=== PATIENT | female | born 1940 | race African-American/Black ===

== ENCOUNTER 2018-06-10 16:47 | Emergency (ER) | payer OTHER ==
--- OUTSIDE RECORDS SUMMARY | 2018-06-10 16:50 | XMS REPORT | Continuity of Care Document ---
:1940 Author Organization Interface Problems Problem Status Onset Classification Date Comments Source Date Reported Menopause 10/04/2017 018 [facility] Atrophic vaginitis 10/04/2017 018 [facility] Group Vulvar dystrophy 10/04/2017 018 [facility] Group Osteoporosis 10/04/2017 018 [facility] Group R10.31 - RIGHT LOWER Active OPID QUADRANT PAIN K57.3 017 [place] History of polyp of Active Problem 12/04/2017 Data colon<sup>3, 4</sup> 015 migrated Medical from [facility] on 12/16/14. 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 Edema<sup>2</sup> Active Problem 12/04/2017 Data 013 migrated Medical from [facility] on 11/07/14. Neuro, OPID [place] Hypertensive Active Problem 06/18/2017 Data episode<sup>5</sup> 013 migrated Medical from [facility] on 11/07/14. Hyperlipidemia<sup>5, Active Problem 07/24/2016 Data OPID 6</sup> 013 migrated [facility] from [facility] on 11/07/14. Hypertensive Active Problem 07/24/2016 Data OPID episode<sup>7</sup> 013 migrated [facility] from [facility] on 11/07/14. Diverticular disease of Active Problem 12/04/2017 Data colon<sup>1</sup> 013 migrated Medical from [facility] on 11/07/14. Neuro, OPID [place] Internal Active Problem 06/18/2017 Data hemorrhoids<sup>6</sup> 013 migrated Medical from [facility] on 11/07/14. Internal Active Problem 12/04/2017 Data hemorrhoids<sup>5</sup> 013 migrated Medical from [facility] on 11/07/14. Neuro Internal Active Problem 07/24/2016 Data OPID hemorrhoids<sup>8</sup> 013 migrated [facility] from [facility] on 11/07/14. Osteoarthritis<sup>7</mcknight Active Problem 06/18/2017 Data p> 012 migrated Medical from [facility] on 11/07/14. Osteoarthritis<sup>6</mcknight Active Problem 12/04/2017 Data p> 012 migrated Medical from [facility] on 11/07/14. Neuro Osteoarthritis<sup>9</mcknight Active Problem 07/24/2016 Data OPID p> 012 migrated [facility] from [facility] on 11/07/14. Gallstones Active Problem 12/04/2017 [facility] Neuro, OPID [place] Drug therapy Active Problem 12/04/2017 [facility] Neuro, OPID [place] Vulvar dystrophy Active Problem 12/04/2017 [facility] Neuro, OPID [place] Body mass index Active Problem 12/04/2017 29.0-29.9, adult(<span Medical ID="[id number]">[facility] med</span>) [facility] Neuro Hypergammaglobulinemia Active Problem 12/04/2017 [facility] Hepatic lesion Active Problem 12/04/2017 [facility] Neuro,MH OPID [place] Menopause Active Problem 12/04/2017 [facility] Neuro,MH OPID [place] Mixed hyperlipidemia Active Problem 12/04/2017 [facility] Neuro Lung nodules Active Problem 12/04/2017 [facility] Neuro,MH OPID [place] Osteopenia Active Problem 06/18/2017 Medical Group, OPID [place] Osteoporosis Active Problem 12/04/2017 [facility] Neuro,MH OPID [place] Atrophic vaginitis Active Problem 12/04/2017 [facility] Neuro,MH OPID [place] Cervical spondylosis Active Problem 12/04/2017 [facility] Neuro Degenerative cervical Active Problem 12/04/2017 disc Medical [facility] Neck pain Active Problem 12/04/2017 [facility] Neuro Adult body mass index Active Problem 07/24/2016 OPID 28.0-28.9 [place] RLQ abdominal pain Active Problem 07/10/2016 OPID [place] Medications Medication Details Route Status Patient Ordering Order Source Instructions Provider Date baclofen 10 mg See Active oral tablet Instructions 018 Medical , # 90 tab, Group TAKE 1 TABLET BY MOUTH 3 TIMES A DAY NEEDED FOR SPASMS, Pharmacy: [facility]/pharmacy #[id number] baclofen 10 mg See No Longer oral tablet Instructions Active 018 Medical , # 90 tab, Group TAKE 1 TABLET BY MOUTH 3 TIMES A DAY NEEDED FOR SPASMS, Pharmacy: [facility]/pharmacy #[id number] tramadol 50 mg=1 tab, No Longer hydrochloride 50 PO, BID, X Active 018 Medical MG Oral Tablet 10 day, # 10 Group tab, 0 Refill(s) baclofen 10 mg 10 mg=1 tab, No Longer oral tablet PO, TID, PRN Active 018 Medical Spasms, # 90 Group tab, 0 Refill(s), Pharmacy: [facility]/pharmacy #[id number] Triamcinolone See Active Acetonide 1 Instructions 018 Medical MG/ML Topical , apply Group Cream small amount to affected area twice/day until symptoms resolved., # 60 gm, 1 Refill(s), Pharmacy: [facility]/pharmacy #[id number] atorvastatin 20 20 mg=1 tab, No Longer MH mg oral tablet PO, Daily, # Active 018 Medical 90 tab, 0 Group Refill(s), [id number] atorvastatin 20 20 mg=1 tab, Active MH mg oral tablet PO, Daily, # 018 Medical 90 tab, 5 Group Refill(s), [id number] amLODIPine 5 mg See Active MH oral tablet Instructions 018 Medical , TAKE 1 Group TABLET BY MOUTH DAILY, # 90 tab, 1 Refill(s), [id number] levofloxacin 500 500 mg=1 Active MH mg oral tablet tab, PO, 018 Medical Daily, X 10 Group day, # 10 tab, 0 Refill(s), [id number], DC the Zithromax order Codeine See Active MH Phosphate 2 Instructions 018 Medical MG/ML / , PRN cough, Group Guaifenesin 20 5-10 mL PO MG/ML Oral Q6H prn Solution cough, # 240 [Cheratussin] mL, 1 Refill(s) {6 (Azithromycin See Inactive MH 250 MG Oral Instructions 018 Medical Tablet , Take 2 Group [Zithromax]) } tablets by Pack [Z-PAKS] mouth the first day then 1 tablet by mouth days 2-5., X 5 day, # 6 tab, 0 Refill(s), [id number] Allergies, Adverse Reactions, Alerts Substance Category Reaction Severity Reaction Status Date Comments Source type Reported penicillins Assertion Drug Active Data <sup>1</sup allergy migrated Medical > from [facility] on 01/07/15. Originally documented as PCN. Hives dicyclomine Assertion Drug Active Data <sup>2</sup allergy migrated Medical > from [facility] on 10/08/14. Originally documented as DICYCLOMINE HCL. itching and swelling dicyclomine Assertion Drug Active Data OPID <sup>1</sup allergy migrated Sugar > from [facility] on 10/08/14. Originally documented as DICYCLOMINE HCL. itching and swelling penicillins Assertion Drug Active Data OPID <sup>2</sup allergy migrated Sugar > from [facility] on 01/07/15. Originally documented as PCN. Hives Immunizations Immunization Date Site Status Last Comments Source Given Updated influenza virus Left completed [facility] vaccine, 7 Delto[facility] Group,Misch inactivated er Neuro influenza virus Left completed [facility] vaccine, 6 Deltoid Group,Misch inactivated er Neuro,MH OPID [place] influenza virus Left completed [facility] vaccine, 5 Deltoid Group,Misch inactivated er Neuro,MH OPID [place] diphtheria/pertu Left completed [facility] ssis, 4 Deltoid Comment: Group,Misch acel/tetanus adacel er Neuro adult<sup>3</sup [[id number]]. > Migrated from OBS ; Data migrated from [facility] on 07/13/2015. influenza virus Right completed [facility] vaccine, 4 Deltoid Comment: Group,Misch inactivated<sup> fluzone high er Neuro 1</sup> dose [[id number]]. Migrated from OBS ; Data migrated from [facility] on 07/13/2015. diphtheria/pertu Left completed [facility] OPID ssis, 4 Deltoid Comment: [place] acel/tetanus adacel adult<sup>1</sup [[id number]]. > Migrated from OBS ; Data migrated from [facility] on 07/13/2015. influenza virus Right completed [facility] OPID vaccine, 4 Deltoid Comment: [place] inactivated<sup> fluzone high 3</sup> dose [[id number]]. Migrated from OBS ; Data migrated from [facility] on 07/13/2015. Hx influenza completed [facility] vaccine-unspecif 3 Comment: Group,Misch ied<sup>4</sup> given. er Neuro Migrated from OBS ; Data migrated from [facility] on 07/13/2015. Hx influenza completed [facility] OPID vaccine-unspecif 3 Comment: [place] ied<sup>2</sup> given. Migrated from OBS ; Data migrated from [employer] [facility] on 07/13/2015. influenza virus Left completed [facility] vaccine, 3 Deltoid Comment: Group,Misch inactivated<sup> fluzone (>3 er Neuro 2</sup> yrs.) [[id number]]. Migrated from OBS ; Data migrated from [employer] [facility] on 07/13/2015. influenza virus Left completed [facility] OPID vaccine, 3 Deltoid Comment: [place] inactivated<sup> fluzone (>3 4</sup> yrs.) [[id number]]. Migrated from OBS ; Data migrated from [employer] [facility] on 07/13/2015. zoster vaccine Left completed [facility] live<sup>5</sup> 3 Deltoid Comment: Group,Misch zostavax. er Neuro Migrated from OBS VIS: given September 18, 2012. ; Data migrated from [employer] [facility] on 07/13/2015. zoster vaccine Left completed [facility] OPID live<sup>6</sup> 3 Deltoid Comment: [place] zostavax. Migrated from OBS VIS: given September 18, 2012. ; Data migrated from [facility] on 07/13/2015. pneumococcal Right completed [facility] 23-valent 2 Deltoid Comment: Group,Misch vaccine<sup>6</s pneumovax. er Neuro up> Migrated from OBS VIS: given April 17, 2012. ; Data migrated from [employer] [facility] on 07/13/2015. pneumococcal Right completed [facility] OPID 23-valent 2 Deltoid Comment: [place] vaccine<sup>5</s pneumovax. up> Migrated from OBS VIS: given April 17, 2012. ; Data migrated from [employer] [facility] on 07/13/2015. Results Order Name Results Value Reference Date Interpretation Comments Source Range Spine Spine Procedure: Lumbar Spine Radiographs. 07/25 - [facility] lumbar 2 lumbar - [place] or 3 views or 3 views DX DX Clinical Indication: Back pain, no known injury. Read by: Jonathan Harris MD Dictated Date/time: 07/25/17 14:27 Electronically Signed by: Jonathan Harris MD 07/25/17 14:28 FINAL REPORT Comparison: None. FINDINGS: The 3 views of the lumbar spine show degenerative change most pronounced at L4-L5 and L5-S1 including narrowing of the intervertebral disc spaces, marginal osteophyte formation and facet joint hypertrop hy. No acute displaced fracture or spondylolisthesis is observed. Vascular calcifications are noted. IMPRESSION: 1. Degenerative change. [id number] Spine Spine Procedure. Cervical Spine Radiographs. 07/25 - [facility] cervical 2 cervical - [place] or 3 view or 3 view DX DX Clinical Indication: Neck pain, no known injury. Read by: Jonathan Harris MD Dictated Date/time: 07/25/17 14:30 Electronically Signed by: Jonathan Harris MD 07/25/17 14:32 FINAL REPORT Comparison: Radiograph of the cervical spine 08/03/2015. FINDINGS: The 3 views of the cervical spine show degenerative change from C3 through C7 including narrowing of the intervertebral disc spaces, marginal osteophyte formation and facet joint hypertrophy. No acute displaced fracture or subluxation is observed. IMPRESSION: 1. Degenerative change. [id number] Breast Breast 06/28 - [facility] Mammo Scrn Mammo Scr - [place] BHAVESH incl BHAVESH incl CAD MA CAD MA Read by: Orion Adhikari MD Dictated Date/time: 06/28/17 14:01 BILATERAL DIGITAL SCREENING MAMMOGRAM WITH CAD: 06/28/2017 Electronically Signed by: Orion Adhiakri MD 06/28/17 14 :01 FINAL REPORT CLINICAL: Screening/Screening. Current study was evaluated with a Computer Aided Detection (CAD) system. COMPARISON:Comparison is made to exams dated: 06/22/2016 mammogram, 2015 mammogram, 06/15/2014 mammogram, and 02/17/2013 mammogram - [facility]. TECHNIQUE: Mammographic views were obtained using digital acquisition. Current study was also evaluated with a Computer Aided Detection (CAD) system. FINDINGS: There are scattered fibroglandular densities in both breasts. There are benign calcifications in the right breast. No significant masses, calcifications, or other findings are seen in either breast. There has been no significant interval change. IMPRESSION: BENIGN RECOMMENDATION:There is no mammographic evidence of malignancy. A 1 year screening mammogram is recommended.(06/29/2018) This exam was interpreted at [id number] for [facility]. Orion aguirre/lacie:06/28/2017 14:01:38 Construction Person(s): Lanette [place] [facility] letter sent: BI-RADS 1/2 Mammogram BI-RADS: 2 Benign Sinus Sinus Clinical Indication: - headache; 03/14 - [facility] paranasal paranasal /2016 - [place] 1 view DX 1 view DX Comparison: None Read by: Bebeto Morrissey MD Dictated Date/time: 03/14/17 08:58 FINDINGS: Electronically Signed by: Bebeto Morrissey MD 03/14/17 09:01 FINAL REPORT The 3 views of the sinuses show that the ethmoid, sphenoid and frontal sinuses are clear without mucoperiosteal thickening or air fluid levels. There is mild mucoperiosteal thickening of the left maxill casandra sinus. There is no evidence of any air-fluid levels within the maxillary sinuses. There are no osseous abnormalities noted. The nasal septum is midline. The nasopharynx region is grossly unremarkable. The mastoid regions appear unremarkable. If there is further concern, sinus CT may be performed for complete assessment. IMPRESSION: 1. Mild mucoperiosteal thickening of the left maxillary sinus. Air-fluid levels are identified.. SL: [id number] Chest wo Chest wo CLINICAL HISTORY : abnormal CT of the abd, lower lung ho , Mass 07/21 - [facility] contrast contrast /2016 - [place] [facility] EXAM : CT chest without contrast 07/21/2016 2:00 PM PULMONARY NURSE PRACTITIONER Read by : Marli Duran MD Dictated Date/time: 07/21/16 14:30 Electronically Signed by: Marli Duran MD 07/21/16 16:43 FINAL REPORT COMPARISON : CT abdomen and pelvis with and without contrast 07/07/2016 TECHNIQUE : Volumetric CT acquisition was performed through the chest. Images in the axial, coronal, and sagittal plane were presented for interpretation. RADIATION DOSE/ CONTRAST : DLP:478.36 mGy FINDINGS : The left lung apex on axial image 22 there is a 3 mm nodule. In the right middle lobe there is a 5 mm nodule. There is a calcified nodule in the right upper lobe on axial image 52. There is a 3 mm nodule in the right middle lobe on axial image 72. In the right lower lobe on axial image 78 there is a 4 mm nodule. In the right lung base medially on axial image 89 there is a 3 mm nodule. In the left lung apex on axial image 20 there is a 3 mm nodule as well as an adjacent 4 mm nodule on axial image 22. In the left lung base anteriorly on axial image 75 there is a 7 mm nodule. In the lingula on axial image 55 there is a 3 mm nodule. The heart is normal in size with moderate coronary artery calcifications. The thoracic aorta and its primary branches are normal in course and caliber with moderate vascular calcifications. The main pulmonary artery and visualized proximal tracheobronchial tree are within normal limits. There are are no pathologically enlarged mediastinal, hilar, supraclavicular, or axillary lymph nodes. The upper abdominal structures are grossly stable compared to the recent abdomen/pelvis CT. There is redemonstration of a low-density lesion in the left hepatic lobe measuring 1.9 cm in diameter. The soft tissue structures of the chest wall are normal. There are multilevel degenerative changes throughout the thoracic spine with disc space narrowing. There are no lytic or sclerotic osseous metastases visualized.. IMPRESSION: 1. Numerous subcentimeter nodules throughout the lungs bilaterally, correlation with the patient's history is recommended. If the patient does not have a known history of primary malignancy, percut aneous biopsy of the dominant left lower lobe nodule may be beneficial.. 2. Moderate coronary artery calcifications. Abdomen/Pe Abdomen/Pe STUDY: CT abdomen and pelvis with and without contrast. 07/07 - OPID lvis w/wo lvis w/wo /2016 - [place] IV IV [place] contrast contrast CT CT COMPARISON: None. Read by: Sonia Ceron MD Dictated Date/time: 07/07/16 12:23 Electronically Signed by: Sonia Ceron MD 07/07/16 12:39 FINAL REPORT HISTORY: RLQ pain. TECHNIQUE: Contiguous axial images of the abdomen and pelvis were obtained before and after intravenous contrast administration including delayed images. Enteric contrast was given. Sagittal and coronal reformats were performed. DLP: 1685 mGy-cm. Contrast dose: 100ml Omnipaque. FINDINGS: Lung bases: Several nodules are seen in the lung bases measuring up to 4 mm (image 1). Osseous structures: Degenerative changes of the spine. No suspicious osseous lesion. Liver: 2 simple cysts measuring up to 1.6 cm. 2.0 x 2.0 cm subtle hypodense lesion in the medial segment of left hepatic lobe (series 3, image 24 ) may represent metastatic lesion. Gallbladder: Contains gallstones. No evidence of acute cholecystitis. Spleen: Normal. Pancreas: Normal. Adrenal glands: Normal. Kidneys: Normal. Gastrointestinal tract: Normal stomach. Normal small bowel. Appearance of short segment mural thickening of proximal ascending colon (coronal image 60) may be due to under distention. Pathologic thicken ing secondary malignancy cannot be excluded. Correlate with colonoscopy. Sigmoid and descending colonic diverticulosis without evidence of acute diverticulitis. Appendix is not seen. Urinary bladder: Normal. Reproductive organs: Uterus has been removed. No adnexal mass. Adenopathy: None. Inflammatory changes: None. Free fluid: None. Vasculature: Moderate atherosclerotic vascular calcification. IMPRESSION: No acute abnormality in the abdomen or pelvis. Short segment mural thickening of proximal ascending colon may be due to underdistention. Malignancy cannot be excluded. Correlate with colonoscopy. Indeterminate 2.0 cm lesion in the left hepatic lobe. Metastasis cannot be excluded. Nodules in the lung bases. Consider further evaluation with nonemergent CT chest without contrast. Colonic diverticulosis without diverticulitis. Cholelithiasis without acute cholecystitis. Abdomen AP Abdomen AP EXAM: Abdomen one view 07/03/2016 9:46 AM PULMONARY NURSE PRACTITIONER 07/03 - [facility] DX DX /2016 - [place] HISTORY: 75 years Female right upper quadrant abdominal pain Read by: Georges Sebastian MD Dictated Date/time: 07/03/16 09:46 Electronically Signed by: Georges Sebastian MD 07/03/16 09:47 FINAL REPORT COMPARISON: None available. FINDINGS: There is a nonobstructive bowel gas pattern, with mild colonic stool. Probable vascular calcifications are noted in the pelvis. No evidence of mass effect or organomegaly. There is moderate lo wer lumbar degenerative change. No acute bony abnormalities are seen. IMPRESSION: 1. Nonobstructive bowel gas pattern. Digital Digital - DIGITAL MAMMO SCREENING BHAVESH MCGRATH 06/22 - [facility] Mammo Mammo /2016 - [place] Screening Screening BILATERAL DIGITAL SCREENING MAMMOGRAM WITH CAD: 2016 Bhavesh Ospina MA CLINICAL: Screening. Read by: Apolinar Gonzáles MD Dictated Date/time: 07/11/16 13:14 Electronically Signed by: Apolinar Gonzáles MD 07/11/16 13:14 FINAL REPORT Current study was evaluated with a Computer Aided Detection (CAD) system. Comparison is made to exams dated: 06/15/2014 mammogram and 06/17/2015 mammogram - [facility]. There are scattered fibroglandular densities in both breasts. There are benign calcifications in the right breast. No significant masses, calcifications, or other findings are seen in either breast. There has been no significant interval change. IMPRESSION: BENIGN There is no mammographic evidence of malignancy. A 1 year screening mammogram is recommended. Apolinar sam/penrad:07/11/2016 13:14:10 Construction Person: Lanette [place], [facility] This exam was dictated and interpreted by [id number] for [facility]. letter sent: Normal exam Mammogram BI-RADS: 2 Benign Spine Spine Exam: Cervical spine x-ray, 5 views 08/03 - [facility] cervical cervical /2015 - [place] series DX series DX Reason for Exam: NECK PAIN Read by: Brandon Stanton MD Dictated Date/time: 08/03/15 11:55 Electronically Signed by: Brandon Stanton MD 08/03/15 11:57 FINAL REPORT Comparison Exam: None Discussion: On lateral view, the cervical spine is seen from the C1 vertebral body level down through the C7/T1 junction. Vertebral body heights are maintained. No spondylolisthesis. Moderate multilevel degenerativ e disc disease is noted. No suspicious osteoblastic or osteolytic lesions. On oblique views, there is neural foraminal encroachment within the mid and lower cervical spine. Prevertebral soft tissue is within normal limits. Lateral masses of C1 and dens of C2 are not adequately seen on frontal view. Please note that a cervical spine x-ray cannot rule out ligamentous injuries or spinal cord abnormalities. Visualized portions of the lung apices are unremarkable. Impression: 1. Moderate multilevel degenerative disc disease. On oblique views, there is neural foraminal encroachment within the mid and lower cervical spine. Bone Bone - Bone Density DXA Dual Energy MA 06/23 - [facility] Density Density /2015 - [place] DXA Dual DXA Dual BONE DENSITY EVALUATION: 06/23/2015 Energy MA Energy MA Read by: Kimo Rose MD Dictated Date/time: 06/24/15 15:24 COMPARISON: Electronically Signed by: Kimo Rose 06/24/15 15:24 FINAL REPORT 02/04/2013 Left femur neck using a Hologic unit from [facility] with reported normal fracture risk, BMD of 0.813g/ cm2 and T-score of -1.00. 02/04/2013 AP L1-L4 region of spine using a Hologic unit from [facility] with reported normal fracture risk, BMD of 1.040g/cm2 and T-score of -1.00. FINDINGS: Bone density evaluation was performed 06/23/2015 on the AP L1-L4 region of spine using a Hologic unit. The BMD average for the exam is 1.091 g/cm2. The T- score is -0.50. Since the previous similar exa m of 02/04/2013, there has been a +0.051 or +4.9% change in the BMD value which represents no significant interval change in bone density. This matches the World Health Organization's criteria for normal bone density and places the patient within normal limits of fracture risk. An additional bone density evaluation was performed 06/23/2015 on the left femur neck using a Hologic unit. The BMD average for the exam is 0.778 g/cm2. The T-score is -1.20. Since the previous simila r exam of 02/04/2013, there has been a -0.035 or -4.3% change in the BMD value which represents no significant interval change in bone density. This matches the World Health Organization's criteri a for osteopenia and places the patient at a medium risk for fracture. An additional bone density evaluation was performed 06/23/2015 on the left femur trochanter using a Hologic unit. The BMD average for the exam is 0.940 g/ cm2. The T-score is -0.60. This matches the Wo d Health Organization's criteria for normal bone density and places the patient within normal limits of fracture risk. IMPRESSION: OSTEOPENIA Patient is at medium risk for fracture. This exam was dictated and interpreted by [id number] for [facility]. Kimoperi rose/penrad:06/24/2015 15:24:43 Construction Person: Mana Tinoco, [facility] Digital Digital - DIGITAL MAMMO SCREENING BHAVESH MCGRATH 06/17 - [facility]2015 - [place] Screening Screening BILATERAL DIGITAL SCREENING MAMMOGRAM WITH CAD: 06/17/2015 Bhavesh Ospina MA CLINICAL: Screening. Read by: Kimo Rose MD Dictated Date/time: 06/17/15 13:47 Electronically Signed by: Kimo Rose 06/17/15 13:47 FINAL REPORT Current study was evaluated with a Computer Aided Detection (CAD) system. Comparison is made to exams dated: 06/15/2014 mammogram and 02/17/2013 mammogram - [facility]. The tissue of both breasts is heterogeneously dense, which could obscure detection of small masses. No significant masses, calcifications, or other findings are seen in either breast. There has been no significant interval change. IMPRESSION: NEGATIVE There is no mammographic evidence of malignancy. A 1 year screening mammogram is recommended. Kimo rose/penrad:06/17/2015 13:47:44 Construction Person: Mana Tinoco, [facility] This exam was dictated and interpreted by [id number] for [facility]. letter sent: Normal exam Mammogram BI-RADS: 1 Negative Vital Signs Vital Sign Value Date Comments Source Weight 76.534 10/31/2017 [facility] Height 165.1 cm 10/31/2017 [facility] BMI Calculated 28.08 10/31/2017 [facility] Heart Rate 86 10/31/2017 [facility] Temperature Oral (F) 98.8 F 10/31/2017 [facility] Systolic (mm Hg) 143 10/31/2017 [facility] Diastolic (mm Hg) 76 10/31/2017 [facility] BMI Calculated 29.41 09/19/2017 [facility] Weight 77.727 09/19/2017 [facility] Height 162.56 cm 09/19/2017 [facility] Systolic (mm Hg) 130 09/19/2017 [facility] Diastolic (mm Hg) 72 09/19/2017 [facility] Respitory Rate 17 09/19/2017 [facility] Heart Rate 80 09/19/2017 [facility] Temperature Oral (F) 98.2 F 09/19/2017 [facility] Weight 76.818 08/28/2017 [facility] Heart Rate 79 08/28/2017 [facility] Systolic (mm Hg) 129 08/28/2017 [facility] Diastolic (mm Hg) 68 08/28/2017 [facility] Systolic (mm Hg) 129 08/28/2017 [facility] Diastolic (mm Hg) 68 08/28/2017 [facility] Heart Rate 79 08/28/2017 [facility] Weight 77.045 08/28/2017 [facility] Weight 79.091 08/03/2017 [facility] Temperature Oral (F) 97.9 F 08/03/2017 [facility] Systolic (mm Hg) 148 08/03/2017 [facility] Diastolic (mm Hg) 79 08/03/2017 [facility] Heart Rate 90 08/03/2017 [facility] Temperature Oral (F) 97.4 F 07/25/2017 [facility] Systolic (mm Hg) 158 07/25/2017 [facility] Diastolic (mm Hg) 81 07/25/2017 [facility] Heart Rate 81 07/25/2017 [facility] Weight 78.807 07/25/2017 [facility] Height 165.1 cm 06/28/2017 [facility] Weight 78.182 06/28/2017 [facility] BMI Calculated 28.68 06/28/2017 [facility] Heart Rate 84 06/28/2017 [facility] Systolic (mm Hg) 146 06/28/2017 [facility] Diastolic (mm Hg) 72 06/28/2017 [facility] Temperature Oral (F) 97.8 F 06/14/2017 [facility] Weight 78.636 06/14/2017 [facility] Systolic (mm Hg) 158 06/14/2017 [facility] Diastolic (mm Hg) 73 06/14/2017 [facility] Heart Rate 99 06/14/2017 [facility] Weight 79.091 04/27/2017 [facility] Height 163.83 cm 04/27/2017 [facility] BMI Calculated 29.47 04/27/2017 [facility] Systolic (mm Hg) 140 04/27/2017 [facility] Diastolic (mm Hg) 62 04/27/2017 [facility] Temperature Oral (F) 98.5 F 04/27/2017 [facility] Heart Rate 68 04/27/2017 [facility] Respitory Rate 15 04/27/2017 [facility] Encounters Location Location Encounter Encounter Reason Attending ADM DC Status Source Details Type Number For Provider Date Date Visit Outpatient [id number] L LINH 03/17 [facility] [id number] SHAWNA 04/21 [facility] [id number] MAMMO VISIT 06/17 Active [facility] [id number] BRENDON 06/17 [facility] 3 [facility] Out[facility] [id number] MAMMO VISIT 06/17 [facility] [id number] DEXA VISIT 06/23 [facility] [id number] SHAWNA 07/15 [facility] [id number] SHAWNA 08/02 [facility] [id number] XRAY VISIT 08/03 [facility] [id number] XRAY VISIT 08/03 [facility] [id number] Leah NICHOLSONE 09/15 [facility] [id number] SHAWNA 02/06 [facility] [id number] JORDANA 02/24 Active [facility] 6 [facility] Out[facility] [id number] Leah LINH 03/17 [facility] [id number] SHAWNA 04/21 Active [facility] 5 [facility] Outpatient [id number] SHAWNA 04/28 Active [facility] 5 [facility] Outpatient [id number] YAAKOV 05/18 [facility] [id number] MAMMO VISIT 06/22 Active [facility] [id number] ABDIFATAH 07/03 [facility] [id number] XRAY VISIT 07/03 Active [facility] Outpt Diag [id number] Abdifatah 07/07 07/08 [facility] Outpatient Services 0 ynsk /2016 [facility] [place] Outpatient [id number] ABDIFATAH 07/10 Active [facility] 4 [facility]patient [id number] YAAKOV 07/10 [facility] [id number] Abdifatah 07/21 07/22 [facility] 1 [facility] [place] Outpatient [id number] ABDIFATAH 07/24 Active [facility] 9 [facility] Outpatient [id number] JESUS 07/25 Active [facility] 0 [facility] Outpatient [id number] YAAKOV 08/03 Active [facility] 8 [facility]patient [id number] ABDIFATAH 08/07 Active [facility] 5 [facility] Outpatient [id number] L LINH 09/15 Active [facility] 7 [facility] Outpatient [id number] JESUS 11/28 Active [facility] 1 [facility] Outpatient [id number] JESUS 12/19 [facility] [id number] ABDIFATAH 01/24 Active [facility] 6 [facility] Outpatient [id number] ABDIFATAH 02/05 Active [facility] [id number] JORDANA 03/14 [facility] [id number] XRAY VISIT 03/14 Active [facility] [id number] XRAY VISIT 03/14 Active [facility] [id number] L LINH 03/21 Active [facility] 3 [facility] Outpatient [id number] SHAWNA 04/27 Active [facility] 8 [facility] Family Outpatient [id number] Shawna 04/27 04/28 [facility] Outpatient [id number] JORDANA 06/14 Active [facility] Outpatient [id number] Jordana 06/14 06/15 Medicine 2 [facility] Phone [id number] 06/14 06/16 [facility] Medicine Message [facility] Phone [id number] 06/21 06/23 Cardiology Message [facility] Outpatient [id number] BRENDON 06/28 Active [facility] 1 [facility] Outpatient [id number] MAMMO VISIT 06/28 Active [facility] [id number] MAMMO VISIT 06/28 Active [facility] [employer] Outpatient [id number] Brendon 06/28 06/29 [facility] Ambulatory [id number] NURSE VISIT 06/28 06/28 Radiology Pre-Reg Medical [facility] Family Outpatient [id number] NURSE VISIT 06/28 06/29 [facility] Outpatient [id number] JODY 07/25 Active [facility] 6 [facility] Outpatient [id number] XRAY VISIT 07/25 Active [facility] [id number] XRAY VISIT 07/25 Active [facility] Family Outpatient [id number] Jody 07/25 07/26 Medicine 6 [facility] Family Outpatient [id number] NURSE VISIT 07/25 07/26 Medicine Medical [facility] Ambulatory [id number] NURSE VISIT 07/25 07/25 Radiology Pre-Reg Medical [facility] Outside [id number] 08/01 08/03 Cardiology Medical [facility] Outpatient [id number] JODY 08/03 Active [facility] 9 [facility] Family Outpatient [id number] Jody 08/03 08/04 Medicine 9 [facility] Outpatient [id number] JESUS 08/28 Active [facility] Outpatient [id number] JODY 08/28 Active [facility] 0 [facility] Outpatient [id number] Jesus 08/28 08/29 Pulmonology Medical [facility] Family Outpatient [id number] Jody 08/28 08/29 Medicine 0 [facility] Outpatient [id number] L LINH 09/19 Active [facility] 0 [facility] Outpatient [id number] L Linh 09/19 09/20 Cardiology 0 [facility] Family Phone [id number] 09/24 09/26 MH Medicine Message [facility] Phone [phone] 09/28 09/30 [facility] [place] Outpatient [id number] JED 10/31 Active [facility] 3 [facility] Outpatient [id number] Jody 10/31 11/01 [facility] [place] Outpatient [id number] SHAWNA 02/13 Active [facility] 4 [facility] Outpatient [id number] SHAWNA 03/05 Active [facility] 5 [facility] [id number] SREEKRISHN 03/08 Active [facility] 6 [facility] [id number] L LINH 03/21 Active [facility] 2 [facility] Out[facility] [id number] Leah LINH 03/25 Active [facility] 7 [facility] Outpatient [id number] JODY 03/28 Active [facility] 9 [facility] Outpatient [id number] [place] 05/09 Active [facility] 1 [facility] [id number] SHAWNA 05/16 Active [facility] 0 [facility] Outpatient [id number] MAMMO VISIT 07/08 Active [facility] [id number] [facility] 08/27 Active [facility] 1 [facility] Outpatient [id number] L LINH 09/23 Active [facility] 8 [facility] Outpatient [id number] LAB VISIT 11/08 Active [facility] [id number] SHAWNA 11/15 Active [facility] 1 [facility] Procedures Procedure Code Date Perfomer Comments Source Colonoscopy<sup>1< [id number] 07/19/2016 [facility] /sup> Dr. Glez Group recommended 5 year followup Colonoscopy<sup>1< [id number] 07/19/2016 [facility] /sup> Dr. Glez Neuro recommended 5 year followup Procedure on [id number] 10/09/2013 left wrist vein Medical wrist<sup>2</sup> repair 10/2013 Group Procedure on [id number] 10/09/2013 left wrist vein [facility] wrist<sup>2</sup> repair 10/2013 Neuro Procedure on [id number] 10/09/2013 left wrist vein [facility] wrist<sup>1</sup> repair 10/2013 [place] Colonoscopy [id number] 12/18/2012 [facility] [place] CEIOL - Cataract [id number] 02/13/2011 right eye. [facility] extraction and Group insertion of intraocular lens<sup>3</sup> CEIOL - Cataract [id number] 02/13/2011 right eye. [facility] extraction and Neuro insertion of intraocular lens<sup>3</sup> CEIOL - Cataract [id number] 02/13/2011 right eye. [facility] extraction and [place] insertion of intraocular lens<sup>2</sup> Arthroscopy of [id number] 06/11/2010 Right knee Replacement 04/16/2011 [facility] Medical knee<sup>4</sup> Total joint replacement. Group Rotating Platform Knee, Fixed Bearing Knee. Arthroscopy of [id number] 06/11/2010 Right knee Replacement 04/16/2011 [facility] knee<sup>4</sup> Total joint replacement. Neuro Rotating Platform Knee, Fixed Bearing Knee. Arthroscopy of [id number] 06/11/2010 Right knee Replacement 04/16/2011 [facility] knee<sup>3</sup> Total joint replacement. [place] Rotating Platform Knee, Fixed Bearing Knee. [facility] BSO - Total [id number] 06/11/2000 Benign Medical abdominal pathology. Group hysterectomy and bilateral salpingo-oophorect [place]<sup>5</sup> [facility] BSO - Total [id number] 06/11/2000 Benign [facility] abdominal pathology. Neuro hysterectomy and bilateral salpingo-oophorect [place]<sup>5</sup> [facility] BSO - Total [id number] 06/11/2000 Benign [facility] abdominal pathology. [place] hysterectomy and bilateral salpingo-oophorect [place]<sup>4</sup> Bunionectomy<sup>6 [id number] and bone spurs Medical </sup> Group Rotator cuff [id number] left [facility] Medical repair<sup>7</sup> Group Pneumococcal [id number] 2016 with pcp Medical vaccination<sup>7< Group /sup> Rotator cuff [id number] left [facility] Medical repair<sup>8</sup> Group Bunionectomy<sup>6 [id number] and bone spurs [facility] </sup> Neuro Pneumococcal [id number] 2016 with pcp [facility] vaccination<sup>7< Neuro /sup> Rotator cuff [id number] left [facility] repair<sup>8</sup> Neuro Bunionectomy<sup>5 [id number] and bone spurs [facility] </sup> [place] Rotator cuff [id number] left [facility] repair<sup>6</sup> [place]
--- OUTSIDE RECORDS SUMMARY | 2018-06-10 16:50 | XMS REPORT | Summary of Care ---
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 Drug therapy(Confirmed) Active Vulvar dystrophy(Confirmed) Active Edema2 01/21/13 Active History of polyp of colon(Confirmed)3, 09/07/14 Active 4 Hyperlipidemia5, 6 01/21/13 Active Hypertensive episode7 01/21/13 Active Internal hemorrhoids8 01/02/13 Active Menopause(Confirmed) Active Osteoarthritis9 06/07/12 Active Osteopenia(Confirmed) Active Osteoporosis(Confirmed) Active RLQ abdominal pain(Confirmed) Active Atrophic vaginitis(Confirmed) Active Spasmodic ajxwfmdxowi04, 11, 12 12/15/13 Active 1Data migrated from [employer] on 11/07/14.2Data migrated from [employer] on 11/07/14.3Data migrated from [employer] on 12/16/14.4Data migrated from [employer] on 12/16/14.5Data migrated from [employer] on 12/16/14.6Data migrated from [employer] on 11/07/14.7Data migrated from [employer] on .8Data migrated from [employer] on 11/07/14.9Data migrated from [employer] on 5/30/15.10Data migrated from [employer] on 12/16/14.11Data migrated from [employer] on 12/16/14.12Data migrated from [employer] on 11/07. Allergies, Adverse Reactions, Alerts Substance Reaction Severity Status dicyclomine1 Active penicillins2 Active 1Data migrated from [employer] on 10/08/14. Originally documented as DICYCLOMINE HCL. itching and dipxioyd0Djvj migrated from [employer] on . Originally documented as PCN. Hives Medications No data available for this section Results No data available for this section Immunizations Given and Recorded Vaccine Date Status Refusal Reason diphtheria/pertussis, acel/tetanus adult1 04/23/14 Given Hx influenza vaccine-unspecified2 04/24/13 Given influenza virus vaccine, inactivated 02/07/16 Given influenza virus vaccine, inactivated 04/21/15 Given influenza virus vaccine, inactivated3 04/23/14 Given influenza virus vaccine, inactivated4 04/24/13 Given pneumococcal 23-valent vaccine5 04/17/12 Given zoster vaccine live6 09/18/12 Given 1Result Comment: adacel [[id number]]. Migrated from OBS ; Data migrated from [employer] on 07/13/2015.2Result Comment: given. Migrated from OBS ; Data migrated from [employer] on 07/13/2015.3Result Comment: fluzone high dose [ [id number]]. Migrated from OBS ; Data migrated from [employer] on 2015.4Result Comment: fluzone (>3 yrs.) [[id number]]. Migrated from OBS ; Data migrated from [employer] on 07/13/2015.5Result Comment: pneumovax. Migrated from OBS VIS: given April 17, 2012. ; Data migrated from [employer] on 07/13/2015.6Result Comment: zostavax. Migrated from OBS VIS: given September 18, 2012. ; Data migrated from [employer] on 07/13/2015. Procedures Procedure Date Related Diagnosis Body Site Procedure on wrist1 10/09/13 Colonoscopy 12/18/12 [facility] - Cataract extraction and insertion of 02/13/11 intraocular lens2 Arthroscopy of knee3 2010 [facility] BSO - Total abdominal hysterectomy and 2000 bilateral salpingo-oophorectomy4 Bunionectomy5 Rotator cuff repair6 1left wrist vein repair 10/201384358zbgyl eye.3Right knee Replacement 04/16/2011 Total joint replacement. Rotating Platform Knee, Fixed Bearing Knee.4Benign pathology.5and bone ngpzi4zuty Social History Social History Type Response Substance Abuse Use: None. Sexual Self Breast Exam Yes. Exercise Exercise frequency: 3-4 times/week. Exercise type: Walking, Stationary Bike.1 Employment/School Work/School description: Retired.. Alcohol Never Smoking Status Never smoker; Exposure to Tobacco Smoke None; Cigarette Smoking Last 365 Days No; Reg Smoking Cessation Counseling No2 1about 15/30 minutes.2non-smoker Assessment and Plan No data available for this section
--- OUTSIDE RECORDS SUMMARY | 2018-06-10 16:51 | XMS REPORT | Summary of Care ---
:[address] [facility] Address [address] [place] [address]- Encounter HQ Nolanr_artie(FIN) [id number] Date(s): 04/27/17 - 04/27/17 [facility] [address] [place] [address]- [phone] Discharge Disposition: Home or Self Care Attending Physician: Onofre Rosario MD Vital Signs Most recent to oldest [Reference Range]: 1 Height 163.83 cm (04/27/17 9:20 AM) Temperature Oral [96.4-99.1 DegF] 98.5 DegF (04/27/17 9:20 AM) Blood Pressure [90-140/60-90 mmHg] 140/62 mmHg (04/27/17 9:20 AM) Respiratory Rate [14-20 BRMIN] 15 BRMIN (04/27/17 9:20 AM) Peripheral Pulse Rate [60-100 bpm] 68 bpm (04/27/17 9:20 AM) Weight 79.091 kg (04/27/17 9:20 AM) Body Mass Index 29.47 m2 (04/27/17 9:20 AM) Problem List Condition Effective Dates Status Health Status Informant Gallstones(Confirmed) Active 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 Drug therapy(Confirmed) Active Vulvar dystrophy(Confirmed) Active Edema2 01/21/13 Active Body mass index (BMI) 29.0-29.9, Active adult(Confirmed) History of polyp of colon(Confirmed)3, 09/07/14 Active 4 Hypergammaglobulinemia(Confirmed) Active Hypertensive episode(Confirmed)5 01/21/13 Active Internal hemorrhoids6 01/02/13 Active Hepatic lesion(Confirmed) Active Menopause(Confirmed) Active Mixed hyperlipidemia(Confirmed) Active Lung nodules(Confirmed) Active Osteoarthritis7 06/07/12 Active Osteopenia(Confirmed) Active Osteoporosis(Confirmed) Active Atrophic vaginitis(Confirmed) Active Spasmodic torticollis8, 9, 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 Allergies, Adverse Reactions, Alerts Substance Reaction Severity Status penicillins1 Active dicyclomine2 Active 1Data migrated from [employer] on 01/07/15. Originally documented as PCN. Culrz3Oebk migrated from [employer] on 10/08/14. Originally documented as DICYCLOMINE HCL. itching and swelling Medications No Known Medications Results No data available for this section Immunizations Given and Recorded Vaccine Date Status Refusal Reason influenza virus vaccine, inactivated 04/27/17 Given influenza virus vaccine, inactivated 02/07/16 Given influenza virus vaccine, inactivated 04/21/15 Given influenza virus vaccine, inactivated1 04/23/14 Given influenza virus vaccine, inactivated2 04/24/13 Given diphtheria/pertussis, acel/tetanus adult3 04/23/14 Given Hx influenza vaccine-unspecified4 04/24/13 Given zoster vaccine live5 09/18/12 Given pneumococcal 23-valent vaccine6 04/17/12 Given 1Result Comment: fluzone high dose [[id number]]. Migrated from OBS ; Data migrated from [employer] on 07/13/2015.2Result Comment: fluzone (>3 yrs.) [[id number]]. Migrated from OBS ; Data migrated from [employer] on 2015.3Result Comment: adacel [hyv559]. Migrated from OBS ; Data migrated from [employer] on 07/13/2015.4Result Comment: given. Migrated from OBS ; Data migrated from [employer] on 07/13/2015.5Result Comment: zostavax. Migrated from OBS VIS: given September 18, 2012. ; Data migrated from [employer] on 07/13/2015.6Result Comment: pneumovax. Migrated from OBS VIS: given April 17, 2012. ; Data migrated from [employer] on 2015. Procedures Procedure Date Related Diagnosis Body Site Colonoscopy1 07/19/16 Procedure on wrist2 10/09/13 [facility] - Cataract extraction and insertion of 02/13/11 intraocular lens3 Arthroscopy of knee4 2010 [facility] BSO - Total abdominal hysterectomy and 2000 bilateral salpingo-oophorectomy5 Bunionectomy6 Rotator cuff repair7 1[facility] Dr. Glez recommended 5 year [id number] wrist vein repair 10/201308390vdzki eye.4Right knee Replacement 04/16/2011 Total joint replacement. Rotating Platform Knee, Fixed Bearing Knee.5Benign pathology.6and bone sdsxs6kiud Social History Social History Type Response Substance Abuse Use: None. Sexual Self Breast Exam Yes. Exercise Exercise frequency: 3-4 times/week. Exercise type: Walking, Stationary Bike.1 Employment/School Work/School description: Retired.. Alcohol Never Smoking Status Never smoker; Previous treatment: None; Ready to change: No; Concerns about tobacco use in household: No; Exposure to Tobacco Smoke None; Cigarette Smoking Last 365 Days No; Reg Smoking Cessation Counseling No2 1about 15/30 minutes.2non-smoker Assessment and Plan No data available for this section
--- OUTSIDE RECORDS SUMMARY | 2018-06-10 16:51 | XMS REPORT | Summary of Care ---
:1940 Author Organization [facility] 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 Drug therapy(Confirmed) Active Vulvar dystrophy(Confirmed) Active Edema2 01/21/13 Active Body mass index (BMI) 29.0-29.9, Active adult(Confirmed) History of polyp of colon(Confirmed)3, 09/07/14 Active 4 Hypergammaglobulinemia(Confirmed) Active Internal hemorrhoids5 01/02/13 Active Hepatic lesion(Confirmed) Active Menopause(Confirmed) Active Mixed hyperlipidemia(Confirmed) Active Lung nodules(Confirmed) Active Neck pain(Confirmed) Active Osteoarthritis6 06/07/12 Active Osteoporosis(Confirmed) Active Atrophic vaginitis(Confirmed) Active Spasmodic torticollis7, 8, 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 Allergies, Adverse Reactions, Alerts Substance Reaction Severity Status penicillins1 Active dicyclomine2 Active 1Data migrated from [employer] on 01/07/15. Originally documented as PCN. Naxcn3Omyq migrated from [employer] on 10/08/14. Originally documented as DICYCLOMINE HCL. itching and swelling Medications baclofen 10 mg oral tablet See Instructions, # 90 tab, TAKE 1 TABLET BY MOUTH 3 TIMES A DAY NEEDED FOR SPASMS, Pharmacy: [facility]/pharmacy #[id number] Start Date: 09/24/17 Status: Ordered Results No data available for this section [...] 04/17/12 Given 1Result Comment: fluzone high dose [bhl899]. Migrated from OBS ; Data migrated from [employer] on 07/13/2015.2Result Comment: fluzone (>3 yrs.) [tiy915]. Migrated from OBS ; Data migrated from [employer] on 2015.3Result Comment: adacel [coy471]. Migrated from OBS ; Data migrated from [employer] on 07/13/2015.4Result Comment: given. Migrated from OBS ; Data migrated from [employer] on 07/13/2015.5Result Comment: zostavax. Migrated from OBS VIS: given September 18, 2012. ; Data migrated from [employer] on 07/13/2015.6Result Comment: pneumovax. Migrated from OBS VIS: given April 17, 2012. ; Data migrated from [employer] on 2015. Procedures Procedure Date Related Diagnosis Body Site Status Colonoscopy1 07/19/16 Completed Procedure on wrist2 10/09/13 Completed CEIOL - Cataract extraction and 9/5/11 Completed insertion of intraocular lens3 Arthroscopy of knee4 2010 Completed CRIS BSO - Total abdominal hysterectomy 2000 Completed and bilateral salpingo-oophorectomy5 Bunionectomy6 Completed Pneumococcal vaccination7 Completed Rotator cuff repair8 Completed 1[facility] Dr[facility] Glez recommended 5 year ftslrsfp6ybau wrist vein repair 10/201318741rvsta eye.4Right knee Replacement 04/16/2011 Total joint replacement. Rotating Platform Knee, Fixed Bearing Knee.5Benign pathology.6and bone [id number] with alv9exnm Social History Social History Type Response Substance Abuse Use: None. Sexual Self Breast Exam Yes. Exercise Exercise type: Walking, Stationary Bike.1 Employment/School Work/School description: Retired.. Alcohol Never Smoking Status Never smoker; Previous treatment: None; Ready to change: No; Concerns about tobacco use in household: No; Exposure to Tobacco Smoke None; Cigarette Smoking Last 365 Days No; Reg Smoking Cessation Counseling No2 entered on: 09/19/17 1about 15/30 minutes.2non-smoker Assessment and Plan No data available for this section
--- OUTSIDE RECORDS SUMMARY | 2018-06-10 16:51 | XMS REPORT | Summary of Care ---
:[address] [facility] [address] [place] [address]- Encounter HQ Nolanr_artie(FIN) [id number] Date(s): 06/14/17 - 06/15/17 [facility] [address] [address] [place] [address] [phone] Vital Signs No data available for this [...] Centricity on 01/07/15. Originally documented as PCN. Hgixd4Mtot migrated from [employer] on 10/08/14. Originally documented as DICYCLOMINE HCL. itching and swelling Medications amLODIPine 5 mg oral tablet See Instructions, TAKE 1 TABLET BY MOUTH DAILY, # 90 tab, 1 Refill(s), Pharmacy : [facility]/pharmacy #[id number] Start Date: 06/14/17 Status: Ordered Results No data available for [...] 04/17/12 Given 1Result Comment: fluzone high dose [nud265]. Migrated from OBS ; Data migrated from [employer] on 07/13/2015.2Result Comment: fluzone (>3 yrs.) [lni231]. Migrated from OBS ; Data migrated from [employer] on 2015.3Result Comment: adacel [enh674]. Migrated from OBS ; Data migrated from [...] 02/13/11 intraocular lens3 Arthroscopy of knee4 2010 [facility] BSO - Total abdominal hysterectomy and 2000 bilateral salpingo-oophorectomy5 Bunionectomy6 Rotator cuff repair7 1[facility] Dr[facility] Glez recommended 5 year ugqqhugf1yroo wrist vein repair 10/201360484omvmn eye.4Right knee Replacement 04/16/2011 Total joint replacement. Rotating Platform Knee, Fixed Bearing Knee.5Benign pathology.6and bone [id number] Social History Social History Type Response Substance [...]
--- OUTSIDE RECORDS SUMMARY | 2018-06-10 16:51 | XMS REPORT | Summary of Care ---
:1940 Author Organization [facility] Cardiology [place] Address [address] [facility] [place] [address]- Encounter HQ Encntr_alivaishnavi(FIN) [id number] Date(s): 06/21/17 - 06/22/17 [facility] [address] [facility] [place] [address] [phone] Vital Signs No data available for this [...] on .8Data migrated from [employer] on 7/8/15.9Data migrated from [employer] on 11/07/14. Allergies, Adverse Reactions, Alerts Substance Reaction Severity Status penicillins1 Active dicyclomine2 Active 1Data migrated from [employer] on 01/07/15. Originally documented as PCN. Jxida6Uqxk migrated from [employer] on 10/08/14. Originally documented as DICYCLOMINE HCL. itching and swelling Medications No data available for this section [...] 04/17/12 Given 1Result Comment: fluzone high dose [hsk906]. Migrated from OBS ; Data migrated from [employer] on 07/13/2015.2Result Comment: fluzone (>3 yrs.) [ggy451]. Migrated from OBS ; Data migrated from [employer] on 2015.3Result Comment: adacel [jmo203]. Migrated from OBS ; Data migrated from [...] 10/09/13 Completed CEIOL - Cataract extraction and 02/13/11 Completed insertion of intraocular lens3 Arthroscopy of knee4 2010 Completed CRIS BSO - Total abdominal hysterectomy 2000 Completed and bilateral salpingo-oophorectomy5 Bunionectomy6 Completed Pneumococcal vaccination7 Completed Rotator cuff repair8 Completed 1[facility] Dr[facility] Glez recommended 5 year tuwpbams5ubht wrist vein repair 10/201328663jbvvx eye.4Right knee Replacement 04/16/2011 Total joint replacement. Rotating Platform Knee, Fixed Bearing Knee.5Benign pathology.6and bone [id number] with [id number] Social History Social History Type Response Substance [...]
--- OUTSIDE RECORDS SUMMARY | 2018-06-10 16:51 | XMS REPORT | Summary of Care ---
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 Drug therapy(Confirmed) Active Vulvar dystrophy(Confirmed) Active Edema2 01/21/13 Active History of polyp of colon(Confirmed)3, 09/07/14 Active 4 Hyperlipidemia5, 6 01/21/13 Active Hypertensive episode(Confirmed)7 01/21/13 Active Internal hemorrhoids8 01/02/13 Active Hepatic lesion(Confirmed) Active Menopause(Confirmed) Active Lung nodules(Confirmed) Active Osteoarthritis9 06/07/12 Active Osteopenia(Confirmed) Active Osteoporosis(Confirmed) Active Atrophic vaginitis(Confirmed) Active Spasmodic ewbnbdkzrfv83, 11, 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 Allergies, Adverse Reactions, Alerts Substance Reaction Severity Status dicyclomine1 Active penicillins2 Active 1Data migrated from [employer] on 10/08/14. Originally documented as DICYCLOMINE HCL. itching and mrxclhlr5Jivx migrated from [employer] on . Originally [...] vaccine live6 09/18/12 Given 1Result Comment: adacel [wzc500]. Migrated from OBS ; Data migrated from [employer] on 07/13/2015.2Result Comment: given. Migrated from OBS ; Data migrated from [employer] on 07/13/2015.3Result Comment: fluzone high dose [ afd910]. Migrated from OBS ; Data migrated from [employer] on 2015.4Result Comment: fluzone (>3 yrs.) [yse104]. Migrated from OBS ; Data migrated from [...] 02/13/11 intraocular lens2 Arthroscopy of knee3 2010 [facility] BSO - Total abdominal hysterectomy and 2000 bilateral salpingo-oophorectomy4 Bunionectomy5 Rotator cuff repair6 1left wrist vein repair 10/201359577uwlex eye.3Right knee Replacement 04/16/2011 Total joint replacement. Rotating Platform Knee, Fixed Bearing Knee.4Benign pathology.5and bone wvfxz4nyyo Social History Social History Type Response Substance [...]
--- OUTSIDE RECORDS SUMMARY | 2018-06-10 16:51 | XMS REPORT | Summary of Care ---
:1940 Author Organization [facility] Address [address] [place] [address]- Encounter HQ Nicholas(FIN) [id number] Date(s): 07/25/17 - 07/25/17 [facility] [address] [facility] [place] [address] [phone] Discharge Disposition: Home or Self Care Attending Physician: Mar Campos DO Vital Signs Most recent to oldest [Reference Range]: 1 Temperature Oral [96.4-99.1 DegF] 97.4 DegF (07/25/17 1:39 PM) Blood Pressure [90-140/60-90 mmHg] 158/81 mmHg *HI* (07/25/17 1:39 PM) Peripheral Pulse Rate [60-100 bpm] 81 bpm (07/25/17 1:39 PM) Weight 78.807 kg (07/25/17 1:39 PM) Problem List Condition Effective Dates Status Health [...] Centricity on 01/07/15. Originally documented as PCN. Fmpii9Svyi migrated from [employer] on 10/08/14. Originally documented as DICYCLOMINE HCL. itching and swelling Medications baclofen 10 mg oral tablet See Instructions, # 90 tab, TAKE 1 TABLET BY MOUTH 3 TIMES A DAY NEEDED FOR SPASMS, Pharmacy: [facility]/pharmacy #[id number] Start Date: 08/21/17 Stop Date: 09/24/17 Status: Completedbaclofen 10 mg oral tablet 10 mg=1 tab, PO, TID, PRN Spasms, # 90 tab, 0 Refill(s), Pharmacy: [facility]/pharmacy #[id number] Start Date: 07/25/17 Stop Date: 08/21/17 Status: Completed Results No data available for this section [...] 04/17/12 Given 1Result Comment: fluzone high dose [pns355]. Migrated from OBS ; Data migrated from [employer] on 07/13/2015.2Result Comment: fluzone (>3 yrs.) [omk257]. Migrated from OBS ; Data migrated from [employer] on 2015.3Result Comment: adacel [aop632]. Migrated from OBS ; Data migrated from [...] 1[facility] Dr[facility] Glez recommended 5 year bskpolwr6scbb wrist vein repair 10/201344685atjfq eye.4Right knee Replacement 04/16/2011 Total joint replacement. Rotating Platform Knee, Fixed Bearing Knee.5Benign pathology.6and bone [id number] with ihc8iuox Social History Social History Type Response Substance [...]
--- OUTSIDE RECORDS SUMMARY | 2018-06-10 16:51 | XMS REPORT | Summary of Care ---
:1940 Author Organization [facility] Address [address] [facility] [place] [address]- Encounter HQ Amador_artie(FIN) [id number] Date(s): 06/14/17 - 06/14/17 [facility] [address] [facility] [place] [address] [phone] Discharge Disposition: Home or Self Care Attending Physician: Luca Doran PA-C Vital Signs Most recent to oldest [Reference Range]: 1 Temperature Oral [96.4-99.1 DegF] 97.8 DegF (06/14/17 8:26 AM) Blood Pressure [90-140/60-90 mmHg] 158/73 mmHg *HI* (06/14/17 8:26 AM) Peripheral Pulse Rate [60-100 bpm] 99 bpm (06/14/17 8:26 AM) Weight 78.636 kg (06/14/17 8:26 AM) Problem List Condition Effective Dates Status [...] Centricity on 01/07/15. Originally documented as PCN. Pulhs3Tixo migrated from [employer] on 10/08/14. Originally documented as DICYCLOMINE HCL. itching and swelling Medications Cheratussin AC oral syrup See Instructions, PRN cough, 5-10 mL PO Q6H prn cough, # 240 mL, 1 Refill(s) Start Date: 06/14/17 Stop Date: 07/02/17 Status: Orderedlevofloxacin 500 mg oral tablet 500 mg=1 tab, PO, Daily, X 10 day, # 10 tab, 0 Refill(s), Pharmacy: [facility]/ pharmacy #[id number], [place] the Zithromax order Start Date: 06/14/17 Stop Date: 06/24/17 Status: OrderedZithromax Z-Byron 250 mg oral tablet See Instructions, Take 2 tablets by mouth the first day then 1 tablet by mouth days 2-5., X 5 day, #6 tab, 0 Refill(s), Pharmacy: [facility]/pharmacy #[id number] Start Date: 06/14/17 Stop Date: 06/14/17 Status: Discontinued Results No data available for this section [...] 04/17/12 Given 1Result Comment: fluzone high dose [egq548]. Migrated from OBS ; Data migrated from [employer] on 07/13/2015.2Result Comment: fluzone (>3 yrs.) [vcr713]. Migrated from OBS ; Data migrated from [employer] on 2015.3Result Comment: adacel [pgw730]. Migrated from OBS ; Data migrated from [...] 02/13/11 intraocular lens3 Arthroscopy of knee4 2010 [facility] BSO - Total abdominal hysterectomy and 2000 bilateral salpingo-oophorectomy5 Bunionectomy6 Rotator cuff repair7 1[facility] Dr[facility] Glez recommended 5 year tsmuqnjg7bjes wrist vein repair 10/201398463sbpha eye.4Right knee Replacement 04/16/2011 Total joint replacement. Rotating Platform Knee, Fixed Bearing Knee.5Benign pathology.6and bone tgnca6arxm Social History Social History Type Response Substance [...]
--- OUTSIDE RECORDS SUMMARY | 2018-06-10 16:51 | XMS REPORT | Summary of Care ---
:1940 Author Organization [facility] Radiology [address] [place] [address]- Encounter HQ Nolanr_artie(FIN) [id number] Date(s): 07/25/17 - 07/25/[address] [place] [address]- [phone] Attending Physician: VISIT, NURSE ST[facility] XRAY Vital Signs No data available for this [...] Centricity on 01/07/15. Originally documented as PCN. Zurrl2Ptuh migrated from [employer] on 10/08/14. Originally [...] 04/17/12 Given 1Result Comment: fluzone high dose [ytp347]. Migrated from OBS ; Data migrated from [employer] on 07/13/2015.2Result Comment: fluzone (>3 yrs.) [uxm063]. Migrated from OBS ; Data migrated from [employer] on 2015.3Result Comment: adacel [fku609]. Migrated from OBS ; Data migrated from [...] Completed insertion of intraocular lens3 Arthroscopy of knee2010 Completed CRIS BSO - Total abdominal hysterectomy 2000 Completed and bilateral salpingo-oophorectomy5 Bunionectomy6 Completed Pneumococcal vaccination7 Completed Rotator cuff repair8 Completed 1[facility] Dr[facility] Glez recommended 5 year ihognrui6bhab wrist vein repair 10/201381389avcav eye.4Right knee Replacement 04/16/2011 Total joint replacement. Rotating Platform Knee, Fixed Bearing Knee.5Benign pathology.6and bone [id number] with ldh0leml Social History Social History Type Response Substance [...]
--- OUTSIDE RECORDS SUMMARY | 2018-06-10 16:52 | XMS REPORT | Summary of Care ---
:1940 Author Organization [facility] Cardiology [place] Address [address] [facility] [place] [address]- Encounter HQ Amador_artie(FIN) [id number] Date(s): 09/19/17 - 09/19/17 [facility] [address] [facility] [place] [address] [phone] Discharge Disposition: Home or Self Care Attending Physician: Leah Newman, MSN,RN, ACNP-BC Vital Signs Most recent to oldest [Reference Range]: 1 Height 162.56 cm (09/19/17 9:28 AM) Temperature Oral [96.4-99.1 DegF] 98.2 DegF (09/19/17 9:28 AM) Blood Pressure [90-140/60-90 mmHg] 130/72 mmHg (09/19/17 9:28 AM) Respiratory Rate [14-20 BRMIN] 17 BRMIN (09/19/17 9:28 AM) Peripheral Pulse Rate [60-100 bpm] 80 bpm (09/19/17 9:28 AM) Weight 77.727 kg (09/19/17 9:28 AM) Body Mass Index 29.41 m2 (09/19/17 9:28 AM) Problem List Condition Effective Dates Status [...] Centricity on 01/07/15. Originally documented as PCN. Xcmnb6Qlnh migrated from [employer] on 10/08/14. Originally documented as DICYCLOMINE HCL. itching and swelling Medications atorvastatin 20 mg oral tablet 20 mg=1 tab, PO, Daily, # 90 tab, 0 Refill(s), Pharmacy: [facility]/pharmacy #[id number] Start Date: 06/21/17 Stop Date: 07/25/17 Status: Discontinuedatorvastatin 20 mg oral tablet 20 mg=1 tab, PO, Daily, # 90 tab, 5 Refill(s), Pharmacy: [facility]/pharmacy #[id number] Start Date: 06/21/17 Status: Ordered Results No data available for [...] 04/17/12 Given 1Result Comment: fluzone high dose [sqf050]. Migrated from OBS ; Data migrated from [employer] on 07/13/2015.2Result Comment: fluzone (>3 yrs.) [zas901]. Migrated from OBS ; Data migrated from [employer] on 2015.3Result Comment: adacel [kiw293]. Migrated from OBS ; Data migrated from [...] 1[facility] Glez recommended 5 year rgxaxvbe3frhy wrist vein repair 10/201350040nnqzk eye.4Right knee Replacement 04/16/2011 Total joint replacement. Rotating Platform Knee, Fixed Bearing Knee.5Benign pathology.6and bone [id number] with coe3rali Social History Social History Type Response Substance [...]
--- OUTSIDE RECORDS SUMMARY | 2018-06-10 16:52 | XMS REPORT | Summary of Care ---
:1940 Author Organization [facility] [place] Address [address] [place] [address]- Encounter HQ Nolanr_artie(FIN) [id number] Date(s): 06/28/17 - 06/28/17 [facility] [address] [place] [address]- [phone] Encounter Diagnosis Menopause (Final) - 06/28/17 Atrophic vaginitis (Final) - 06/28/17 Vulvar dystrophy (Final) - 06/28/17 Osteoporosis (Final) - 06/28/17 Discharge Disposition: Home or Self Care Attending Physician: Brendon Matthews MD Vital Signs Most recent to oldest [Reference Range]: 1 Height 165.1 cm (06/28/17 9:25 AM) Blood Pressure [90-140/60-90 mmHg] 146/72 mmHg *HI* (06/28/17 9:25 AM) Peripheral Pulse Rate [60-100 bpm] 84 bpm (06/28/17 9:25 AM) Weight 78.182 kg (06/28/17 9:25 AM) Body Mass Index 28.68 m2 (06/28/17 9:25 AM) Problem List Condition Effective Dates Status [...] Centricity on 01/07/15. Originally documented as PCN. Zrlkn9Wcle migrated from [employer] on 10/08/14. Originally documented as DICYCLOMINE HCL. itching and swelling Medications triamcinolone topical 0.1% cream See Instructions, apply small amount to affected area twice/day until symptoms resolved., # 60 gm, 1Refill(s), Pharmacy: [facility]/pharmacy #[id number] Start Date: 06/28/17 Status: Ordered Results No data available for [...] 04/17/12 Given 1Result Comment: fluzone high dose [gia466]. Migrated from OBS ; Data migrated from [employer] on 07/13/2015.2Result Comment: fluzone (>3 yrs.) [dyy441]. Migrated from OBS ; Data migrated from [employer] on 2015.3Result Comment: adacel [zgv993]. Migrated from OBS ; Data migrated from [...] [facility] Glez recommended 5 year vljldhgb4uogl wrist vein repair 10/201326836cqpbm eye.4Right knee Replacement 04/16/2011 Total joint replacement. Rotating Platform Knee, Fixed Bearing Knee.5Benign pathology.6and bone [id number] with jvk7bcav Social History Social History Type Response Substance [...]
--- OUTSIDE RECORDS SUMMARY | 2018-06-10 16:52 | XMS REPORT | Summary of Care ---
:1940 Author Organization [facility] [place] Address [address] [facility] [place] [address]- Encounter HQ Nolanr_artie(FIN) [id number] Date(s): 06/28/17 - 06/28/17 [facility] [place] [address] [facility] [place] [address] [phone] Encounter Diagnosis Menopause (Final) - 06/28/17 Atrophic [...] Centricity on 01/07/15. Originally documented as PCN. Qfdqd4Psxq migrated from [employer] on 10/08/14. Originally documented as DICYCLOMINE HCL. itching and swelling Medications triamcinolone topical 0.1% cream See Instructions, apply small amount to affected area twice/day until symptoms resolved., # 60 gm, 1Refill(s), Pharmacy: [facility]/pharmacy #[id number] Start Date: 06/28/17 Status: Ordered Results No [...] 04/17/12 Given 1Result Comment: fluzone high dose [llv200]. Migrated from OBS ; Data migrated from [employer] on 07/13/2015.2Result Comment: fluzone (>3 yrs.) [nav262]. Migrated from OBS ; Data migrated from [employer] on 2015.3Result Comment: adacel [tff422]. Migrated from OBS ; Data migrated from [...] 1[facility] Glez recommended 5 year kcsvntiu0dirs wrist vein repair 10/201383651datoi eye.4Right knee Replacement 04/16/2011 Total joint replacement. Rotating Platform Knee, Fixed Bearing Knee.5Benign pathology.6and bone [id number] with zer1pvis Social History Social History Type Response Substance [...]
--- OUTSIDE RECORDS SUMMARY | 2018-06-10 16:52 | XMS REPORT | Summary of Care ---
:1940 Author Organization [facility] Radiology [place] Address [address] [place] [address] [place] [address]- Encounter HQ Nolanr_artie(FIN) [id number] Date(s): 06/28/17 - 06/28/[address] [place] [address] [phone] Attending Physician: VISIT, NURSE [facility] MAMMO Vital Signs No data available for this [...] Centricity on 01/07/15. Originally documented as PCN. Rkxti5Voxo migrated from [employer] on 10/08/14. Originally [...] 04/17/12 Given 1Result Comment: fluzone high dose [zdh580]. Migrated from OBS ; Data migrated from [employer] on 07/13/2015.2Result Comment: fluzone (>3 yrs.) [rsh405]. Migrated from OBS ; Data migrated from [employer] on 2015.3Result Comment: adacel [rnz614]. Migrated from OBS ; Data migrated from [...] 1[facility] Glez recommended 5 year dswhzpml9xklw wrist vein repair 10/201336716xbhjg eye.4Right knee Replacement 04/16/2011 Total joint replacement. Rotating Platform Knee, Fixed Bearing Knee.5Benign pathology.6and bone [id number] with uhr9abqn Social History Social History Type Response Substance [...]
--- OUTSIDE RECORDS SUMMARY | 2018-06-10 16:52 | XMS REPORT | Summary of Care ---
:1940 Author Organization [facility] Address [address] [place] [address], [address] [place] [address]- Encounter HQ Encntr_alivaishnavi(FIN) [id number] Date(s): 09/28/17 - 09/29/[address], [address] [place] [address] [phone] Vital Signs No data available for this [...] Centricity on 01/07/15. Originally documented as PCN. Bnakc0Izap migrated from [employer] on 10/08/14. Originally [...] 04/17/12 Given 1Result Comment: fluzone high dose [nur363]. Migrated from OBS ; Data migrated from [employer] on 07/13/2015.2Result Comment: fluzone (>3 yrs.) [xxp754]. Migrated from OBS ; Data migrated from [employer] on 2015.3Result Comment: adacel [yxf570]. Migrated from OBS ; Data migrated from [...] 1[facility] Dr[facility] Glez recommended 5 year iiqbzonq7hpgh wrist vein repair 10/201362566gcpaq eye.4Right knee Replacement 04/16/2011 Total joint replacement. Rotating Platform Knee, Fixed Bearing Knee.5Benign pathology.6and bone [id number] with khc7zvye Social History Social History Type Response Substance [...]
--- OUTSIDE RECORDS SUMMARY | 2018-06-10 16:52 | XMS REPORT | Summary of Care ---
:1940 Author Organization [facility] Address [address] [place] [address]- Encounter HQ Amador_artie(FIN) [id number] Date(s): 07/25/17 - 07/25/[address] [place] [address] [phone] Discharge Disposition: Home or Self Care Attending Physician: VISIT, NURSE ST[facility] XRAY Vital [...] Centricity on 01/07/15. Originally documented as PCN. [id number] migrated from [employer] on 10/08/14. Originally [...] 04/17/12 Given 1Result Comment: fluzone high dose [fcq857]. Migrated from OBS ; Data migrated from [employer] on 07/13/2015.2Result Comment: fluzone (>3 yrs.) [prr962]. Migrated from OBS ; Data migrated from [employer] on 2015.3Result Comment: adacel [qlc691]. Migrated from OBS ; Data migrated from [...] 1[facility] Dr[facility] Glez recommended 5 year lrxhbvjh4uxve wrist vein repair 10/201308590wbjkj eye.4Right knee Replacement 04/16/2011 Total joint replacement. Rotating Platform Knee, Fixed Bearing Knee.5Benign pathology.6and bone [id number] with bnc9yntm Social History Social History Type Response Substance [...]
--- OUTSIDE RECORDS SUMMARY | 2018-06-10 16:52 | XMS REPORT | Summary of Care ---
:1940 Author Organization [facility] [place] Address [address] [place] [address]- Encounter HQ Nicholas(FIN) [id number] Date(s): 08/28/17 - 08/28/17 [facility] [place] [address] [place] [address] [phone] Discharge Disposition: Home or Self Care Attending Physician: Alan Thrasher MD Vital Signs Most recent to oldest [Reference Range]: 1 Blood Pressure [90-140/60-90 mmHg] 129/68 mmHg (08/28/17 2:58 PM) Peripheral Pulse Rate [60-100 bpm] 79 bpm (08/28/17 2:58 PM) Weight 77.045 kg (08/28/17 2:58 PM) Problem List Condition Effective Dates Status [...] Centricity on 01/07/15. Originally documented as PCN. Mrpfz9Zviv migrated from [employer] on 10/08/14. Originally [...] 04/17/12 Given 1Result Comment: fluzone high dose [aol356]. Migrated from OBS ; Data migrated from [employer] on 07/13/2015.2Result Comment: fluzone (>3 yrs.) [pxo613]. Migrated from OBS ; Data migrated from [employer] on 2015.3Result Comment: adacel [yhk111]. Migrated from OBS ; Data migrated from [employer] on 07/13/2015.4Result Comment: given. Migrated from OBS ; Data migrated from [employer] on 07/13/2015.5Result Comment: zostavax. Migrated from OBS VIS: given September 18, 2012. ; Data migrated from [employer] on 07/13/2015.6Result Comment: pneumovax. Migrated from OBS VIS: given April 17, 2012. ; Data migrated from [email or web address] on 2015. Procedures Procedure Date Related Diagnosis Body Site Status Colonoscopy1 07/19/16 Completed Procedure on wrist2 10/09/13 Completed CEIOL - Cataract extraction and 02/13/11 Completed insertion of intraocular lens3 Arthroscopy of knee4 2010 Completed CRIS BSO - Total abdominal hysterectomy 2000 Completed and bilateral salpingo-oophorectomy5 Bunionectomy6 Completed Pneumococcal vaccination7 Completed Rotator cuff repair8 Completed 1[facility] Glez recommended 5 year ziyttwtf5mqlk wrist vein repair 10/201360925xjnuw eye.4Right knee Replacement 04/16/2011 Total joint replacement. Rotating Platform Knee, Fixed Bearing Knee.5Benign pathology.6and bone [id number] with ane2vpkf Social History Social History Type Response Substance [...]
--- OUTSIDE RECORDS SUMMARY | 2018-06-10 16:52 | XMS REPORT | Summary of Care ---
:1940 Author Organization [facility] [place] Address [address] [facility] [place] [address]- Encounter HQ Janetntr_alivaishnavi(FIN) [id number] Date(s): 06/28/17 - 06/28/17 [facility] [address] [facility] [place] [phone] Attending Physician: VISIT, NURSE STWC MAMMO Vital [...] on 11/07/14.7Data migrated from [employer] Cent[employer]ity on 7/8/ 15.8Data migrated from [employer] on 12/16/14.9Data migrated from [employer] on 11/07/14. Allergies, Adverse Reactions, Alerts Substance Reaction Severity Status penicillins1 Active dicyclomine2 Active 1Data migrated from [employer] on 01/07/15. Originally documented as PCN. Keoda4Sggu migrated from [employer] on 10/08/14. Originally [...] 04/17/12 Given 1Result Comment: fluzone high dose [aoj607]. Migrated from OBS ; Data migrated from [employer] on 07/13/2015.2Result Comment: fluzone (>3 yrs.) [apw784]. Migrated from OBS ; Data migrated from [employer] on 2015.3Result Comment: adacel [cih021]. Migrated from OBS ; Data migrated from [...] 1[facility] Dr[facility] Glez recommended 5 year qfhyyspg9jvdo wrist vein repair 10/201353964cjmig eye.4Right knee Replacement 04/16/2011 Total joint replacement. Rotating Platform Knee, Fixed Bearing Knee.5Benign pathology.6and bone [id number] with epp9lpwz Social History Social History Type Response Substance [...]
--- OUTSIDE RECORDS SUMMARY | 2018-06-10 16:53 | XMS REPORT | Summary of Care ---
:1940 Author Organization [facility] [place] Address [address] [facility] [place] [address]- Encounter HQ Nolanr_artie(FIN) [id number] Date(s): 06/28/17 - 06/28/17 [facility] [place] [address] [facility] [place] [address] [phone] Encounter Diagnosis Menopause (Final) - 06/28/17 Atrophic [...] Centricity on 01/07/15. Originally documented as PCN. Faywo9Fmlv migrated from [employer] on 10/08/14. Originally documented as DICYCLOMINE HCL. itching and swelling Medications triamcinolone topical 0.1% cream See Instructions, apply small amount to affected area twice/day until symptoms resolved., # 60 gm, 1Refill(s), Pharmacy: [facility]/pharmacy #[id number] Start Date: 06/28/17 Status: Ordered Results No [...] 04/17/12 Given 1Result Comment: fluzone high dose [kky185]. Migrated from OBS ; Data migrated from [employer] on 07/13/2015.2Result Comment: fluzone (>3 yrs.) [pum144]. Migrated from OBS ; Data migrated from [employer] on 2015.3Result Comment: adacel [shq628]. Migrated from OBS ; Data migrated from [...] 1[facility] Dr[facility] Glez recommended 5 year cmyxroow7qaea wrist vein repair 10/201317366bmhyb eye.4Right knee Replacement 04/16/2011 Total joint replacement. Rotating Platform Knee, Fixed Bearing Knee.5Benign pathology.6and bone [id number] with zpn1jamf Social History Social History Type Response Substance [...]
--- OUTSIDE RECORDS SUMMARY | 2018-06-10 16:53 | XMS REPORT | Summary of Care ---
:1939 Author Organization [facility] Address [address] [place] [address]- Encounter HQ Amador_artie(FIN) [id number] Date(s): 06/28/17 - 06/28/17 [facility] [address] [place] [address] [phone] Discharge Disposition: Home or Self Care Attending Physician: VISIT, NURSE STWC MAMMO Vital [...] Centricity on 01/07/15. Originally documented as PCN. Ovdqb8Npfb migrated from [employer] on 10/08/14. Originally [...] 04/17/12 Given 1Result Comment: fluzone high dose [jtj173]. Migrated from OBS ; Data migrated from [employer] on 07/13/2015.2Result Comment: fluzone (>3 yrs.) [tsi631]. Migrated from OBS ; Data migrated from [employer] on 2015.3Result Comment: adacel [tcb594]. Migrated from OBS ; Data migrated from [...] 1[facility] Dr[facility] Glez recommended 5 year weysmzlt1tyff wrist vein repair 10/201315136ouybz eye.4Right knee Replacement 04/16/2011 Total joint replacement. Rotating Platform Knee, Fixed Bearing Knee.5Benign pathology.6and bone [id number] with dgi8xdig Social History Social History Type Response Substance [...]
--- OUTSIDE RECORDS SUMMARY | 2018-06-10 16:53 | XMS REPORT | Summary of Care ---
:1940 Author Organization [facility] [place] Address [address] [facility] [address] [place] [address] Encounter HQ Amador_artie(FIN) [id number] Date(s): 10/31/17 - 10/31/17 [facility] [place] [address] [facility] [address] [place] [phone] Discharge Disposition: Home or Self Care Referring Physician: Mar Campos DO Vital Signs Most recent to oldest [Reference Range]: 1 Height 165.1 cm (10/31/17 11:55 AM) Temperature Oral [96.4-99.1 DegF] 98.8 DegF (10/31/17 11:55 AM) Blood Pressure [90-140/60-90 mmHg] 143/76 mmHg *HI* (10/31/17 11:55 AM) Peripheral Pulse Rate [60-100 bpm] 86 bpm (10/31/17 11:55 AM) Weight 76.534 kg (10/31/17 11:55 AM) Body Mass Index 28.08 m2 (10/31/17 11:55 AM) Problem List Condition Effective Dates Status [...] Centricity on 01/07/15. Originally documented as PCN. Fkjhd6Ibra migrated from [employer] Cent[employer] on 10/08/14. Originally [...] 04/17/12 Given 1Result Comment: fluzone high dose [syw319]. Migrated from OBS ; Data migrated from [employer] on 07/13/2015.2Result Comment: fluzone (>3 yrs.) [iej295]. Migrated from OBS ; Data migrated from [employer] Cent[employer]ity on 2015.3Result Comment: adacel [wbu330]. Migrated from OBS ; Data migrated from [...] 1[facility] Glez recommended 5 year zqdpqhdo8izau wrist vein repair 10/201389575jivng eye.4Right knee Replacement 04/16/2011 Total joint replacement. Rotating Platform Knee, Fixed Bearing Knee.5Benign pathology.6and bone [id number] with rlo9ahfw Social History Social History Type Response Substance Abuse Use: None. Sexual Self Breast Exam Yes. Exercise Exercise type: Walking, Stationary Bike.1 Employment/School Work/School description: Retired.. Alcohol Never Smoking Status Never smoker; Previous treatment: None; Ready to change: No; Concerns about tobacco use in household: No; Exposure to Tobacco Smoke None; Cigarette Smoking Last 365 Days No; Reg Smoking Cessation Counseling No2 entered on: 10/31/17 1about 15/30 minutes.2non-smoker Assessment and Plan Extracted from: Title: Neurosurgery [facility] Note Author: Melissa Iniguez INSURANCE COUNSEL Date: Ms Boudreaux is a 77 year old female who presents to clinic for initial evaluation of neck pain. 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 She bought a horseshoe pillow and was given a muscle relaxer that did not relief her stiffness and pain. Her neck pain is mainly when she sits up and turns her head laterally. She takes Tylenol w ith minimal relief. During last February she was having intermittent sensations of spider webs on top ofher left arm. She had a cervical spine MRI that shows mild to moderate cervical spinal stenosis C4-C5, C5-C6, and borderline C6-C7. She is currently doing well with no signs of myelopathy. Her stiffness is likely chronic and will improve with neck ROMexercises. Impression: - Cervical stenosis - Torticollis Plan: - Followup with Dr Rita RODRIGUES Patient seen, examined, discussed in detail, and diagnostic tests reviewed with Dr. Remy Salinas and in agreement with above plan. Melissa Iniguez MSN, ELECTROLESS PLATER, ACNP- Neurosurgery Acute Care Nurse Practitioner
--- OUTSIDE RECORDS SUMMARY | 2018-06-10 16:53 | XMS REPORT | Summary of Care ---
:1939 Author Organization [facility] [place] Address [address] [address]- Encounter HQ Nicholas(FIN) [id number] Date(s): 08/28/17 - 08/28/17 [facility] [place] [address] [address] [phone] Discharge Disposition: Home or Self Care Attending [...] Centricity on 01/07/15. Originally documented as PCN. Hgwqz3Egty migrated from [employer] Cent[employer] on 10/08/14. Originally [...] 04/17/12 Given 1Result Comment: fluzone high dose [hgw454]. Migrated from OBS ; Data migrated from [employer] Cent[employer] on 07/13/2015.2Result Comment: fluzone (>3 yrs.) [fby578]. Migrated from OBS ; Data migrated from [employer] Cent[employer] on 2015.3Result Comment: adacel [rqe741]. Migrated from OBS ; Data migrated from [employer] Cent[employer] on 07/13/2015.4Result Comment: given. Migrated from OBS ; Data migrated from [employer] Cent[employer] on 07/13/2015.5Result Comment: zostavax. Migrated from OBS VIS: given September 18, 2012. ; Data migrated from [employer] Cent[employer]ity on 07/13/2015.6Result Comment: pneumovax. Migrated from OBS VIS: 7 - 29 -97 given April 17, 2012. ; Data migrated from [email or web address] on 2015. Procedures Procedure Date Related Diagnosis Body Site Status Colonoscopy1 07/19/16 Completed Procedure on wrist2 10/09/13 Completed CEIOL - Cataract extraction and 02/13/11 Completed insertion of intraocular lens3 Arthroscopy of knee4 2010 Completed CRIS BSO - Total abdominal hysterectomy 2000 Completed and bilateral salpingo-oophorectomy5 Bunionectomy6 Completed Pneumococcal vaccination7 Completed Rotator cuff repair8 Completed 1[facility] Glez recommended 5 year rrurrscz9sibh wrist vein repair 10/201302045xqqxa eye.4Right knee Replacement 04/16/2011 Total joint replacement. Rotating Platform Knee, Fixed Bearing Knee.5Benign pathology.6and bone [id number] with ibq6szuy Social History Social History Type Response Substance [...] 10/31/17 1about 15/30 minutes.2non-smoker Assessment and Plan No data available for this section
--- OUTSIDE RECORDS SUMMARY | 2018-06-10 16:53 | XMS REPORT | Summary of Care ---
:1939 Author Organization [facility] [place] Address [address] [facility] [place] [address]- Encounter HQ Janetntr_alivaishnavi(FIN) [id number] Date(s): 06/28/17 - 06/28/17 [facility] [address] [facility] [place] [address] [phone] Attending Physician: VISIT, NURSE STWC MAMMO Vital [...] Centricity on 01/07/15. Originally documented as PCN. Ihbnk7Dcuv migrated from [employer] on 10/08/14. Originally [...] 04/17/12 Given 1Result Comment: fluzone high dose [xrt071]. Migrated from OBS ; Data migrated from [employer] on 07/13/2015.2Result Comment: fluzone (>3 yrs.) [pke377]. Migrated from OBS ; Data migrated from [employer] on 2015.3Result Comment: adacel [lrp466]. Migrated from OBS ; Data migrated from [...] 1[facility] Glez recommended 5 year esvkrdgm0xcks wrist vein repair 10/201333737hqvgv eye.4Right knee Replacement 04/16/2011 Total joint replacement. Rotating Platform Knee, Fixed Bearing Knee.5Benign pathology.6and bone [id number] with nqj5pbrn Social History Social History Type Response Substance [...]
--- OUTSIDE RECORDS SUMMARY | 2018-06-10 16:53 | XMS REPORT | Summary of Care ---
:1940 Author Organization [facility] [place] Address [address] [place] [address]- Encounter HQ Amador_artie(FIN) [id number] Date(s): 08/01/17 - 08/02/17 [facility] [place] [address] [place] [address] [phone] Vital Signs No data available for this [...] Centricity on 01/07/15. Originally documented as PCN. Hcula1Mimd migrated from [employer] on 10/08/14. Originally [...] 04/17/12 Given 1Result Comment: fluzone high dose [mwo875]. Migrated from OBS ; Data migrated from [employer] on 07/13/2015.2Result Comment: fluzone (>3 yrs.) [nur276]. Migrated from OBS ; Data migrated from [employer] on 2015.3Result Comment: adacel [hbk268]. Migrated from OBS ; Data migrated from [...] 1[facility] Glez recommended 5 year vlcyspnd2bunu wrist vein repair 10/201320283udtjk eye.4Right knee Replacement 04/16/2011 Total joint replacement. Rotating Platform Knee, Fixed Bearing Knee.5Benign pathology.6and bone [id number] with nbw4qaak Social History Social History Type Response Substance [...]
--- OUTSIDE RECORDS SUMMARY | 2018-06-10 16:53 | XMS REPORT | Summary of Care ---
:1940 Author Organization [facility] [place] Address [address] [facility] [place] [address]- Encounter HQ Amador_artie(FIN) [id number] Date(s): 09/19/17 - 09/19/17 [facility] [address] [facility] [place] [address] [phone] Discharge Disposition: Home or Self Care Attending [...] Centricity on 01/07/15. Originally documented as PCN. Dqxss9Azek migrated from [employer] on 10/08/14. Originally documented as DICYCLOMINE HCL. itching and swelling Medications atorvastatin 20 mg oral tablet 20 mg=1 tab, PO, Daily, # 90 tab, 0 Refill(s), Pharmacy: [facility]/pharmacy #[id number] Start Date: 06/21/17 Stop Date: 07/25/17 Status: Discontinuedatorvastatin 20 mg oral tablet 20 mg=1 tab, PO, Daily, # 90 tab, 5 Refill(s), Pharmacy: [facility]/pharmacy #[id number] Start Date: 06/21/17 Status: Ordered Results [...] 04/17/12 Given 1Result Comment: fluzone high dose [udb147]. Migrated from OBS ; Data migrated from [employer] on 07/13/2015.2Result Comment: fluzone (>3 yrs.) [lxs902]. Migrated from OBS ; Data migrated from [employer] on 2015.3Result Comment: adacel [rtg988]. Migrated from OBS ; Data migrated from [...] 1[facility] Glez recommended 5 year quilfqih4svog wrist vein repair 10/201362648xqvyr eye.4Right knee Replacement 04/16/2011 Total joint replacement. Rotating Platform Knee, Fixed Bearing Knee.5Benign pathology.6and bone [id number] with apt4zqtp Social History Social History Type Response Substance [...]
--- OUTSIDE RECORDS SUMMARY | 2018-06-10 16:53 | XMS REPORT | Summary of Care ---
:1940 Author Organization [facility] Address [address] [place] [address]- Encounter HQ Nicholas(FIN) [id number] Date(s): 08/03/17 - 08/03/17 [facility] [address] [facility] [place] [address] [phone] Discharge Disposition: Home or Self Care Attending Physician: Mar Campos DO Vital Signs Most recent to oldest [Reference Range]: 1 Temperature Oral [96.4-99.1 DegF] 97.9 DegF (08/03/17 2:19 PM) Blood Pressure [90-140/60-90 mmHg] 148/79 mmHg *HI* (08/03/17 2:19 PM) Peripheral Pulse Rate [60-100 bpm] 90 bpm (08/03/17 2:19 PM) Weight 79.091 kg (08/03/17 2:19 PM) Problem List Condition Effective Dates Status [...] Centricity on 01/07/15. Originally documented as PCN. Mspjo0Mmtq migrated from [employer] on 10/08/14. Originally documented as DICYCLOMINE HCL. itching and swelling Medications tramadol 50 mg oral tablet 50 mg=1 tab, PO, BID, X 10 day, # 10 tab, 0 Refill(s) Start Date: 08/03/17 Stop Date: 08/13/17 Status: Completed Results No data available for [...] 04/17/12 Given 1Result Comment: fluzone high dose [zcs819]. Migrated from OBS ; Data migrated from [employer] on 07/13/2015.2Result Comment: fluzone (>3 yrs.) [uhg623]. Migrated from OBS ; Data migrated from [employer] on 2015.3Result Comment: adacel [ugf076]. Migrated from OBS ; Data migrated from [...] intraocular lens3 Arthroscopy of knee4 2010 Completed RCIS BSO - Total abdominal hysterectomy 2000 Completed and bilateral salpingo-oophorectomy5 Bunionectomy6 Completed Pneumococcal vaccination7 Completed Rotator cuff repair8 Completed 1[facility] Glez recommended 5 year vtcjadvg7mywm wrist vein repair 10/201306939tzoan eye.4Right knee Replacement 04/16/2011 Total joint replacement. Rotating Platform Knee, Fixed Bearing Knee.5Benign pathology.6and bone [id number] with zqs9mtrj Social History Social History Type Response Substance [...]
--- OUTSIDE RECORDS SUMMARY | 2018-06-10 16:53 | XMS REPORT | Summary of Care ---
:1940 Author Organization [facility] Address [address] [place] [address]- Encounter HQ Nicholas(FIN) [id number] Date(s): 08/28/17 - 08/28/17 [facility] [address] [place] [address] [phone] Discharge Disposition: Home or Self Care Attending Physician: Mar Campos DO Vital Signs Most recent to oldest [Reference Range]: 1 Blood Pressure [90-140/60-90 mmHg] 129/68 mmHg (08/28/17 3:25 PM) Peripheral Pulse Rate [60-100 bpm] 79 bpm (08/28/17 3:25 PM) Weight 76.818 kg (08/28/17 3:25 PM) Problem List Condition Effective Dates Status [...] Centricity on 01/07/15. Originally documented as PCN. Eiwoq4Cthe migrated from [employer] on 10/08/14. Originally [...] 04/17/12 Given 1Result Comment: fluzone high dose [gqn278]. Migrated from OBS ; Data migrated from [employer] on 07/13/2015.2Result Comment: fluzone (>3 yrs.) [gtf815]. Migrated from OBS ; Data migrated from [employer] on 2015.3Result Comment: adacel [cgd575]. Migrated from OBS ; Data migrated from [employer] on 07/13/2015.4Result Comment: given. Migrated from OBS ; Data migrated from [employer] on 07/13/2015.5Result Comment: zostavax. Migrated from OBS VIS: given September 18, 2012. ; Data migrated from [employer] on 07/13/2015.6Result Comment: pneumovax. Migrated from OBS VIS: - 29 -97 given April 17, 2012. ; Data migrated from [employer] on 2015. Procedures Procedure Date Related Diagnosis Body Site Status Colonoscopy1 07/19/16 Completed Procedure on wrist2 10/09/13 Completed CEIOL - Cataract extraction and 02/13/11 Completed insertion of intraocular lens3 Arthroscopy of knee4 2010 Completed CRIS BSO - Total abdominal hysterectomy 2000 Completed and bilateral salpingo-oophorectomy5 Bunionectomy6 Completed Pneumococcal vaccination7 Completed Rotator cuff repair8 Completed 1[facility] Glez recommended 5 year ciqzlxlv1okpc wrist vein repair 10/201378295nomwp eye.4Right knee Replacement 04/16/2011 Total joint replacement. Rotating Platform Knee, Fixed Bearing Knee.5Benign pathology.6and bone [id number] with umv2uerx Social History Social History Type Response Substance [...]
[2018-06-10] MEDS ORDERED: KETOROLAC 30 MG/ML INJ ONE (17:55)
[2018-06-10] MEDS ORDERED: DEXAMETHASONE 4 MG/ML VIAL ONE (17:56)
--- NOTE | 2018-06-10 18:23 | ER ---
Nurse's Notes [facility] Name: Bo Boudreaux Age: 77 yrs Sex: Female : 1940 Arrival Date: 06/10/2018 Time: 16:49 Bed 23 Private MD: Diagnosis: Torticollis;Muscle spasm Presentation: 06/10 16:58 Presenting complaint: Patient states: when i woke up from sleep my neck is hurting hj since then; took tylenol and muscle relaxant; denies trauma to the area; denies numbness and tingling on either shoulder;. Transition of care: patient was not received from another setting of care. Acute neurological deficit: none identified. Onset of symptoms was June 10, 2018. Risk Assessment: Do you want to hurt yourself or someone else? Patient reports no desire to harm self or others. Initial Sepsis Screen: Does the patient meet any 2 criteria? No. Patient's initial sepsis screen is negative. Does the patient have a suspected source of infection? No. Patient's initial sepsis screen is negative. Care prior to arrival: None. 16:58 Method Of Arrival: Ambulatory 16:58 Acuity: JORJE 4 hj Triage Assessment: 17:00 General: Appears in no apparent distress. uncomfortable, Behavior is calm, cooperative, hj appropriate for age. Pain: Complains of pain in neck Pain currently is 10 out of 10 on a pain scale. 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 - Social history:: Smoking status: Patient/guardian denies using tobacco, Patient/guardian denies using alcohol. - Ebola Screening: : Patient negative for fever greater than or equal to 101.5 degrees Fahrenheit, and additional compatible Ebola Virus Disease symptoms Patient denies exposure to infectious person Patient denies travel to an Ebola-affected area in the 21 days before illness onset. - Family history:: not pertinent. - Hospitalizations: : No recent hospitalization is reported. Screenin:00 Abuse screen: Denies threats or abuse. Denies injuries from another. Nutritional hj screening: No deficits noted. Tuberculosis screening: No symptoms or risk factors identified. Fall Risk None identified. Assessment: 17:00 Neuro: Level of Consciousness is awake, alert, obeys commands, Oriented to person, hj place, time, situation, Appropriate for age. 17:29 General: Appears in no apparent distress. comfortable, Behavior is calm, cooperative, aj1 appropriate for age. Pain: Complains of pain in neck. Neuro: Level of Consciousness is awake, alert, obeys commands, Oriented to person, place, time, situation. Cardiovascular: Patient's skin is warm and dry. Respiratory: Airway is patent Respiratory effort is even, unlabored, Respiratory pattern is regular, symmetrical. GI: No signs and/or symptoms were reported involving the gastrointestinal system. : No signs and/or symptoms were reported regarding the genitourinary system. EENT: No signs and/or symptoms were reported regarding the EENT system. Derm: No signs and/or symptoms reported regarding the dermatologic system. Skin is pink, warm \T\ dry. normal. Musculoskeletal: Range of motion: intact in all extremities, Reports pain in her neck that is worse when she turns her head to the side since yesterday. 19:02 Reassessment: Patient appears in no apparent distress at this time. No changes from aj1 previously documented assessment. Patient and/or family updated on plan of care and expected duration. Pain level reassessed. Patient is alert, oriented x 3, equal unlabored respirations, skin warm/dry/pink. Vital Signs: 17:00 BP 149 / 67; Pulse 78; Resp 18; Temp 97.8(TE); Pulse Ox 100% on R/A; Weight 77.11 kg; hj Height 5 ft. 5 in. (165.10 cm); Pain 10/10; 17:00 Body Mass Index 28.29 (77.11 kg, 165.10 cm) ED Course: 16:49 Patient arrived in ED. rg4 16:59 Triage completed. hj 17:00 Arm band placed on left wrist. hj 17:00 Patient has correct armband on for positive identification. Bed in low position. Call light in reach. Side rails up X 1. Adult w/ patient. 17:22 Kem Barahona MD is Attending Physician. rn 17:29 Elidia Pimentel RN is Primary Nurse. aj1 17:29 No provider procedures requiring assistance completed. aj1 19:02 Patient did not have IV access during this emergency room visit. aj1 Administered Medications: 17:52 Drug: TORadol 30 mg Route: IM; Site: left gluteus; aj1 19:03 Follow up: Response: No adverse reaction aj1 17:52 Drug: Decadron 10 mg Route: IM; Site: right gluteus; aj1 19:03 Follow up: Response: No adverse reaction aj1 Outcome: 18:23 Discharge ordered by . rn 19:02 Discharged to home ambulatory. aj1 19:02 Condition: good 19:02 Discharge instructions given to patient, Instructed on discharge instructions, follow up and referral plans. no drinking with medication, no driving heavy equipment, medication usage, Demonstrated understanding of instructions, follow-up care, medications, Prescriptions given X 2. 19:04 Patient left the ED. aj1 Signatures: Elidia Pimentel, ADRIANA RN aj1 Kem Barahona MD MD rn Joaquin, Henry, RN RN hj Garcia, Rubi rg4 Corrections: (The following items were deleted from the chart) 17:02 17:00 Pulse 78bpm; Resp 18bpm; Pulse Ox 100% RA; Temp 97.8F Temporal; 77.11 kg; Height hj 5 ft. 5 in.; BMI: 28.2; Pain 10/10; hj
--- NOTE | 2018-06-10 18:23 | EDPHYS ---
Physician Documentation [facility] Name: Bo Boudreaux Age: 77 yrs Sex: Female : 1940 Arrival Date: 06/10/2018 Time: 16:49 Bed 23 Private MD: ED Physician Kem Barahona HPI: 06/10 17:58 This 77 yrs old Black Female presents to ER via Ambulatory with complaints of Neck rn Pain, <24hrs Old. 17:58 The patient or guardian complains of pain. The symptoms are located diffusely. Onset: rn The symptoms/episode began/occurred 2 day(s) ago. Associated signs and symptoms: Pertinent positives: This patient does not have any pertinent positive signs or symptoms associated with neck pain. Pertinent negatives: fever, headache, bladder incontinence, bowel incontinence, nausea, numbness, tingling, vomiting, weakness. The pain does not radiate. Modifying factors: The symptoms are alleviated by remaining still, the symptoms are aggravated by movement. Severity of symptoms: At their worst the symptoms were mild, in the emergency department the symptoms are unchanged. The patient has not experienced similar symptoms in the past. The patient has not recently seen a physician. Reports woke up a couple of days ago with neck pain and neck stiffness, hurts to turn head both ways, no fever, no injury, no sore throat/cough/dysphagia, had normal MRI earlier this year of neck.. 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 - Social history:: Smoking status: Patient/guardian denies using tobacco, Patient/guardian denies using alcohol. - Ebola Screening: : Patient negative for fever greater than or equal to 101.5 degrees Fahrenheit, and additional compatible Ebola Virus Disease symptoms Patient denies exposure to infectious person Patient denies travel to an Ebola-affected area in the 21 days before illness onset. - Family history:: not pertinent. - Hospitalizations: : No recent hospitalization is reported. ROS: 17:58 Constitutional: Negative for fever, chills, and weight loss, Eyes: Negative for injury, rn pain, redness, and discharge, Neck: + neck pain, negative for injury or swelling Cardiovascular: Negative for chest pain, palpitations, and edema, Respiratory: Negative for shortness of breath, cough, wheezing, and pleuritic chest pain, Abdomen/GI: Negative for abdominal pain, nausea, vomiting, diarrhea, and constipation, Back: Negative for injury and pain, MS/Extremity: Negative for injury and deformity, Skin: Negative for injury, rash, and discoloration, Neuro: Negative for headache, weakness, numbness, tingling, and seizure. Exam: 17:58 Constitutional: This is a well developed, well nourished patient who is awake, alert, rn and in no acute distress. Head/Face: Normocephalic, atraumatic. Neck: Trachea midline, no thyromegaly or masses palpated, and no cervical lymphadenopathy. No pain with extension/flexion, + painful ROM turning laterally both ways. Skin: Warm, dry with normal turgor. Normal color with no rashes, no lesions, and no evidence of cellulitis. Neuro: Awake and alert, GCS 15, oriented to person, place, time, and situation. Cranial nerves II-XII grossly intact. Motor strength 5/5 in all extremities. Sensory grossly intact. Cerebellar exam normal. Vital Signs: 17:00 BP 149 / 67; Pulse 78; Resp 18; Temp 97.8(TE); Pulse Ox 100% on R/A; Weight 77.11 kg; hj Height 5 ft. 5 in. (165.10 cm); Pain 10/10; 17:00 Body Mass Index 28.29 (77.11 kg, 165.10 cm) MDM: 17:22 Patient medically screened. rn 18:22 Differential diagnosis: arthritis, cervical strain, torticollis. Data reviewed: vital rn signs, nurses notes, and as a result, I will discharge patient. Counseling: I had a detailed discussion with the patient and/or guardian regarding: the historical points, exam findings, and any diagnostic results supporting the discharge/admit diagnosis, the need for outpatient follow up, to return to the emergency department if symptoms worsen or persist or if there are any questions or concerns that arise at home. Response to treatment: the patient's symptoms have mildly improved after treatment, and as a result, I will discharge patient. Special discussion: I discussed with the patient/guardian in detail that at this point there is no indication for admission to the hospital. It is understood, however, that if the symptoms persist or worsen the patient needs to return immediately for re-evaluation. Administered Medications: 17:52 Drug: TORadol 30 mg Route: IM; Site: left gluteus; aj1 19:03 Follow up: Response: No adverse reaction aj1 17:52 Drug: Decadron 10 mg Route: IM; Site: right gluteus; aj1 19:03 Follow up: Response: No adverse reaction aj1 Disposition: 06/10/18 18:23 Discharged to Home. Impression: Torticollis, Muscle spasm. - Condition is Stable. - Discharge Instructions: Acute Torticollis, Adult. - Prescriptions for Tylenol- Codeine #3 300-30 mg Oral Tablet - take 1 tablet by ORAL route every 6 hours As needed; 15 tablet. Medrol ([place]) 4 mg Oral Tablets, Dose Pack - take 1 tablet by ORAL route as directed - follow package instructions; 1 packet. - Medication Reconciliation Form, Thank You Letter, Antibiotic Education, Prescription Opioid Use form. - Follow up: Private Physician; When: As needed; Reason: Recheck today's complaints, Re-evaluation by your physician. - Problem is new. - Symptoms have improved. Signatures: Elidia Pimentel RN RN aj1 Kem Barahona MD MD rn Joaquin, Henry, RN RN Corrections: (The following items were deleted from the chart) 19:04 18:23 06/10/2018 18:23 Discharged to Home. Impression: Torticollis; Muscle spasm. aj1 Condition is Stable. Forms are Medication Reconciliation Form, Thank You Letter, Antibiotic Education, Prescription Opioid Use. Follow up: Private Physician; When: As needed; Reason: Recheck today's complaints, Re-evaluation by your physician. Problem is new. Symptoms have improved. rn
== END 2018-06-10 19:04 | disposition home or self-care (01) ==
LOC: ER 16:47
DX: M43.6 Torticollis (principal); M62.838 Other muscle spasm; I10 Essential (primary) hypertension; E78.5 Hyperlipidemia, unspecified; Z88.0 Allergy status to penicillin
CPT/HCPCS: 96372; 99283

== ENCOUNTER 2019-02-22 11:33 | Emergency (ER) | payer OTHER ==
--- OUTSIDE RECORDS SUMMARY | 2019-02-22 11:38 | XMS REPORT | Continuity of Care Document ---
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 colon3, 4 015 Data migrated from [facility] on 12/16/14. [facility] Group[facility], OP[facility] [place] History of polyp of Active Problem 01/29/2019 Data migrated from [facility] on 12/16/14. colon (situation) 015 Data migrated from [facility] on 12/16/14. 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 8, 9 014 Data migrated from [facility] on 12/16/14. Medical Data migrated from [facility] on 11/07/14. Group,Jocelyn cooper Neuro, OPID [place] Spasmodic [id number], Active Problem 07/24/2016 Data migrated from [facility] on 12/16/14. MH OPID 11, 12 014 Data migrated from [facility] on 12/16/14. [place] Data migrated from [facility] on 11/07/14. [place] Spasmodic torticollis8, Active Problem 06/18/2017 Data migrated from [facility] on 12/16/14. MH 9, 10 014 Data migrated from [facility] on 12/16/14. Medical Data migrated from [facility] on 11/07/14. Group Spasmodic torticollis Active Problem 01/29/2019 Data migrated from [facility] on 12/16/14. MH (disorder) 014 Data migrated from [facility] on 12/16/14. Medical Data migrated from [facility] on 11/07/14. Group, OPID [place] Edema2 Active Problem 12/04/2018 Data 013 migrated Medical from [facility],[place] [facility] allison on 11/07/14. Neuro, OPID [place] Hyperlipidemia5, 6 Active Problem 07/24/2016 Data migrated from [facility] on 12/16/14. OPID 013 Data migrated from [facility] on 11/07/14. [place] Hypertensive episode7 Active Problem 07/24/2016 Data OPID 013 migrated Sugar from [facility] Land [facility] on 11/07/14. Hypertensive episode5 Active Problem 06/18/2017 Data 013 migrated Medical from [facility] Centricity on 11/07/14. Edema (finding) Active Problem 01/29/2019 Data 013 migrated Medical from [facility], Centricity OPID on 11/07/14. [place] Diverticular disease of Active Problem 12/04/2018 Data colon1 013 migrated Medical from [facility] [facility] allison on 11/07/14. Neuro, OPID [place] Internal hemorrhoids5 Active Problem 12/04/2018 Data 013 migrated Medical from [facility] [facility] allison on 11/07/14. Neuro, OPID [place] Internal hemorrhoids8 Active Problem 07/24/2016 Data OPID 013 migrated Sugar from [facility] on 11/07/14. Internal hemorrhoids6 Active Problem 06/18/2017 Data 013 migrated Medical from [facility] on 11/07/14. Diverticular disease of Active Problem 01/29/2019 Data colon (disorder) 013 migrated Medical from [facility], Centricity OPID on 11/07/14. [place] Internal hemorrhoids Active Problem 01/29/2019 Data MH (disorder) 013 migrated Medical from [facility], Centricity OPID on 11/07/14. [place] Osteoarthritis6 Active Problem 12/04/2018 Data 012 migrated Medical from [facility] [facility] allison on 11/07/14. Neuro, OPID [place] Osteoarthritis9 Active Problem 07/24/2016 Data OPID 012 migrated Sugar from [facility] on 11/07/14. Osteoarthritis7 Active Problem 06/18/2017 Data 012 migrated Medical from [facility] on 11/07/14. Osteoarthritis Active Problem 01/29/2019 Data (disorder) 012 migrated Medical from [facility], Centricity OPID on 11/07/14. [place] Epistaxis Active Problem 12/04/2018 Medical Group, OPID [place] Cervical spondylosis Active Problem 12/04/2018 [facility] Group[facility], [facility] [place] Gallstones Active Problem 12/04/2018 Medical Group,[facility] Neuro, OP[facility] [place] Degenerative cervical Active Problem 12/04/2018 [facility] Neuro, OP[facility] [place] Drug therapy Active Problem 12/04/2018 [facility] Group[facility], [facility] [place] Vulvar dystrophy Active Problem 12/04/2018 Medical Group,[facility] Neuro, OPID [place] Eczema Active Problem 12/04/2018 Medical Group, OPID [place] Body mass index Active Problem 12/04/2018 29.0-29.9, Medical adult(Confirmed) Group,[facility], OP[facility] [place] 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 [facility], [facility] [place] Hyperglycemia Active Problem 12/04/2018 Medical Group, OPID [place] Hepatic lesion Active Problem 12/04/2018 [facility], [facility] [place] Menopause Active Problem 12/04/2018 [facility], [facility] [place] Mixed hyperlipidemia Active Problem 12/04/2018 [facility], [facility] [place] Lung nodules Active Problem 12/04/2018 [facility], [facility] [place] Neck pain Active Problem 12/04/2018 [facility], [facility] [place] Osteoporosis Active Problem 12/04/2018 [facility], [facility] [place] Atrophic vaginitis Active Problem 12/04/2018 [facility], [facility] [place] Adult body mass index Active Problem 07/24/2016 OPID 28.0-28.9 [place] RLQ abdominal pain Active Problem 07/10/2016 OPID [place] Osteopenia Active Problem 06/18/2017 Medical Group, OPID [place] Bleeding from nose Active Problem 01/29/2019 (finding) Medical Group, OPID [place] Cervical spondylosis Active Problem 01/29/2019 (disorder) Medical Group, OP[facility] [place] Gallbladder calculus Active Problem 01/29/2019 (disorder) Medical Group, OP[facility] [place] Degeneration of cervical Active Problem 01/29/2019 intervertebral disc Medical (disorder) Group, OPID [place] Drug therapy finding Active Problem 01/29/2019 (finding) Medical Group, OPID [place] Dystrophy of vulva Active Problem 01/29/2019 (disorder) Medical Group, OP[facility] [place] Eczema (disorder) Active Problem 01/29/2019 Medical Group, OP[facility] [place] Finding of body mass Active Problem 01/29/2019 index (finding) Medical Group, OPID [place] Hypergammaglobulinemia Active Problem 01/29/2019 (finding) Medical Group, OPID [place] Hyperglycemia (disorder) Active Problem 01/29/2019 Medical Group, OPID [place] Lesion of liver Active Problem 01/29/2019 (finding) Medical Group, OP[facility] [place] Menopause present Active Problem 01/29/2019 (finding) Medical Group, OPID [place] Mixed hyperlipidemia Active Problem 01/29/2019 (disorder) Medical Group, OPID [place] Multiple nodules of lung Active Problem 01/29/2019 (finding) Medical Group, OPID [place] Neck pain (finding) Active Problem 01/29/2019 Medical Group, OPID [place] Osteoporosis (disorder) Active Problem 01/29/2019 Medical Group, OPID [place] Atrophic vaginitis Active Problem 01/29/2019 (disorder) Medical Group, OPID [place] Medications Medication Details Route Status Patient Ordering Order Source Instructions Provider Date Levofloxacin 500 500 mg=1 Active MH MG Oral Tablet tab, PO, 019 Medical [Levaquin] Q24H, X 7 Group day, # 7 tab, 0 Refill(s), Pharmacy: [facility] #[id number] Levofloxacin 500 500 mg=1 No Longer MH MG Oral Tablet tab, PO, Active 019 Medical [Levaquin] Q24H, X 7 Group day, # 7 tab, 0 Refill(s), Pharmacy: [id number] Levofloxacin 500 500 mg=1 No Longer MH MG Oral Tablet tab, PO, Active 018 Medical [Levaquin] Q24H, X 10 Group day, # 10 tab, 0 Refill(s), Pharmacy: [facility] #[id number] Codeine Phosphate See No Longer MH 2 MG/ML / Instruction Active 018 Medical Guaifenesin 20 s, PRN Group MG/ML Oral cough, 5-10 Solution mL PO Q6H [Cheratussin] prn cough, # 240 mL, 1 Refill(s) valacyclovir 1000 1 gm=1 tab, No Longer MH MG Oral Tablet PO, ONCE, # Active 018 Medical [Valtrex] 1 tab, 0 Group Refill(s), Pharmacy: [id number] Hydrocortisone 25 1 appl, No Longer MH MG/ML Topical TOP, BID, X Active 018 Medical Cream 14 day, # Group 30 gm, 0 Refill(s), Pharmacy: [id number] baclofen 10 mg See Active MH oral tablet Instruction 018 Medical s, # 90 Group tab, TAKE 1 TABLET BY MOUTH 3 TIMES A DAY NEEDED FOR SPASMS, Pharmacy: [facility]/pharmac y #[id number] baclofen 10 mg See No Longer oral tablet Instruction Active 018 Medical s, # 90 Group tab, TAKE 1 TABLET BY MOUTH 3 TIMES A DAY NEEDED FOR SPASMS, Pharmacy: [facility]/pharmac y #6704 tramadol 50 mg=1 No Longer hydrochloride 50 tab, PO, Active 018 Medical MG Oral Tablet BID, X 10 Group day, # 10 tab, 0 Refill(s) baclofen 10 mg 10 mg=1 No Longer oral tablet tab, PO, Active 018 Medical TID, PRN Group Spasms, # 90 tab, 0 Refill(s), Pharmacy: [facility]/pharmac y #[id number] Triamcinolone See Active Acetonide 1 MG/ML Instruction 018 Medical Topical Cream s, apply Group small amount to affected area twice/day until symptoms resolved., # 60 gm, 1 Refill(s), Pharmacy: [facility]/pharmac y #6704 atorvastatin 20 20 mg=1 No Longer mg oral tablet tab, PO, Active 018 Medical Daily, # 90 Group tab, 0 Refill(s), Pharmacy: [facility]/pharmac y #6704 atorvastatin 20 20 mg=1 Active mg oral tablet tab, PO, 018 Medical Daily, # 90 Group tab, 5 Refill(s), Pharmacy: [facility]/pharmac y #6704 amLODIPine 5 mg See Active oral tablet Instruction 018 Medical s, TAKE 1 Group TABLET BY MOUTH DAILY, # 90 tab, 1 Refill(s), Pharmacy: [facility]/pharmac y #6704 levofloxacin 500 500 mg=1 Active mg oral tablet tab, PO, 018 Medical Daily, X 10 Group day, # 10 tab, 0 Refill(s), Pharmacy: [facility]/pharmac y #[id number], DC the Zithromax order Codeine Phosphate See Active 2 MG/ML / Instruction 018 Medical Guaifenesin 20 s, PRN Group MG/ML Oral cough, 5-10 Solution mL PO Q6H [Cheratussin] prn cough, # 240 mL, 1 Refill(s) {6 (Azithromycin See Inactive 250 MG Oral Instruction 018 Medical Tablet s, Take 2 Group [Zithromax]) } tablets by Pack [Z-PAKS] mouth the first day then 1 tablet by mouth days 2-5., X 5 day, # 6 tab, 0 Refill(s), Pharmacy: [facility] y #[id number] Allergies, Adverse Reactions, Alerts Substance Category Reaction Severity Reaction Status Date Comments Source type Reported penicillins Assertion Drug Active Data OPID <sup>1</sup allergy migrated [facility]. Originally documented as PCN. Hives dicyclomine Assertion Drug Active Data OPID <sup>2</sup allergy migrated [place] > from [facility] on 10/08/14. Originally documented as DICYCLOMINE HCL. itching and swelling dicyclomine Assertion Drug Active Data OPID <sup>1</sup allergy migrated [facility]. Originally documented as DICYCLOMINE HCL. itching and swelling penicillins Assertion Drug Active Data OPID <sup>2</sup allergy migrated [facility]. Originally documented as PCN. Hives Immunizations Immunization Date Site Status Last Comments Source Given Updated pneumococcal Right completed Count includes the [facility] Medical 13-valent 8 Deltoid Group, vaccine OPID [place] influenza virus Left completed Count includes the [facility] Medical vaccine, 8 Deltoid Group, inactivated OPID [place] influenza virus Left completed Count includes the [facility] Medical vaccine, 7 Deltoid Group,Misch inactivated er Neuro, OPID [place] influenza virus Left completed Count includes the [facility] Medical vaccine, 6 Deltoid Group,Misch inactivated er Neuro, OPID [place] influenza virus Left completed Count includes the [facility] Medical vaccine, 5 Deltoid Group,Misch inactivated er Neuro, OPID [place] diphtheria/pertu Left completed [facility] OPID ssis, 4 Deltoid Comment: [place] acel/tetanus adacel adult<sup>1</sup [[id number]]. > Migrated from OBS ; [facility]. influenza virus 11/13/201 Right completed GE Result OPID vaccine, 4 Deltoid Comment: [place] inactivated<sup> fluzone high 3</sup> dose [[id number]]. Migrated from OBS ; Data migrated from [facility] on 07/13/2015. diphtheria/pertu Left completed GE Result Medical ssis, 4 Deltoid Comment: Group,Misch acel/tetanus adacel er Neuro,MH adult<sup>3</sup [[id number]]. OPID [place] > Migrated from Land OBS ; Data migrated from [facility] on 07/13/2015. influenza virus Right completed [facility] Result Medical vaccine, 4 Deltoid Comment: Group,Misch inactivated<sup> fluzone high er Neuro, 1</sup> dose [[id number]]. OPID [place] Migrated from Land OBS ; Data migrated from [facility] on 07/13/2015. Hx influenza completed GE Result OPID vaccine-unspecif 3 Comment: [place] ied<sup>2</sup> given. Migrated from OBS ; Data migrated from [facility] on 07/13/2015. Hx influenza completed GE Result Medical vaccine-unspecif 3 Comment: Group,Misch ied<sup>4</sup> given. er Neuro,MH Migrated from OPID [place] OBS ; Data [place] migrated from [facility] on 07/13/2015. influenza virus Left completed GE Result OPID vaccine, 3 Deltoid Comment: [place] inactivated<sup> fluzone (>3 4</sup> yrs.) [[id number]]. Migrated from OBS ; Data migrated from [facility] on 07/13/2015. influenza virus Left completed [facility] Result Medical vaccine, 3 Deltoid Comment: Group,Misch inactivated<sup> fluzone (>3 er Neuro,MH 2</sup> yrs.) OPID [place] [[id number]]. [place] Migrated from OBS ; Data migrated from [facility] on 07/13/2015. zoster vaccine Left completed GE Result OPID live<sup>6</sup> 3 Deltoid Comment: [place] zostavax. Migrated from OBS VIS: given September 18, 2012. ; Data migrated from [facility] on 07/13/2015. zoster vaccine Left completed GE Result Medical live<sup>5</sup> 3 Deltoid Comment: Group,[place]isch zostavax. er Neuro,MH Migrated from OPID [place] OBS VIS: [place] given September 18, 2012. ; Data migrated from GE [facility] on 07/13/2015. pneumococcal Right completed GE Result OPID 23-valent 2 Deltoid Comment: [place] vaccine<sup>5</s pneumovax. up> Migrated from OBS VIS: given April 17, 2012. ; Data migrated from [facility] on 07/13/2015. pneumococcal Right completed GE Result Medical 23-valent 2 Deltoid Comment: Group,Misch vaccine<sup>6</s pneumovax. er Neuro,MH up> Migrated from OPID [place] OBS VIS: given April 17, 2012. ; Data migrated from [facility] on 07/13/2015. Results No Data Provided for This Section Pathology Reports No Data Provided for This Section Diagnostic Reports Report Value Date Source Breast Mammo Diag UNI 07/11/2018 OPID [place] w juanita incl CAD MA UNILATERAL RIGHT DIGITAL DIAGNOSTIC MAMMOGRAM 3D/2D WITH CAD: 07/11/2018 CLINICAL: /R92.8 Other Abnormal And Inconclusive Findings On Diagnostic Imaging Of Breast. Current study was evaluated with a Computer Aided Detection (CAD) system. COMPARISON:Comparison is made to exams dated: 07/08/2018 mammogram, 2017 mammogram, 06/22/2016 mammogram, 06/17/2015 mammogram, 06/15/2014 mammogram, and 02/17/2013 mammogram - [facility]. TECHNIQUE: Digital Breast Tomosynthesis was performed and utilized for Interpretation. Current study was also evaluated with a Computer Aided Detection (CAD) system. FINDINGS: There are scattered fibroglandular densities in right breast. Additional views were performed to evaluate the areas of mammographic concern in the right breast. The previously described focal asymmetry and nodular density in the posterior right breast do not persi st on spot compression views, consistent with summation artifact. No significant masses, calcifications, or other findings are seen in the breast. IMPRESSION: NEGATIVE RECOMMENDATION: No suspicious mammographic findings in the right breast. The previously described right breast asymmetries corresponds to summation artifact. There is no mammographic evidence of malignancy. A 1 year screening mammogram is recommended. (07/12/2019) This exam was interpreted at [id number] at [facility]. Professional services are provided by the [facility]. Brandon Browne M.D. lr/:07/11/2018 09:28:13 Instructor Substitute Cosmetology(s): Renetta Collado, [facility] Out[facility] Imaging letter sent: BI-RADS 1/2 Mammogram BI-RADS: 1 Negative Bone Density DXA Dual PROCEDURE: DEXA BONE DENSITY STUDY. 07/09/2018 [facility] INDICATION: Osteoporosis. COMPARISONS: 06/23/2015 TECHNIQUE: Lumbar spine and hip bone mineral densities were measured using a [employer] A dual x-ray absorptiometry system. FINDINGS: LUMBAR SPINE: L1-L4 average BMD is 1.168 g/cm2 T Score: 0.2; Z score: 3.0 Total lumbar spine bone mineral density has increased by +7.0% since baseline study dated 06/23/2015. This represents significant change at the 95% confidence level. LEFT HIP: Femoral neck BMD: 0.752 g/cm2; T Score: -1.4; Z score: 0.3 Total hip BMD: 0.967 g/cm2; T Score: -0.4; Z score: 1.1 Total left hip bone mineral density has increased by +2.9% since baseline study dated 06/23/2015. IMPRESSION: 1. Normal bone density of the lumbar spine. 2. Osteopenia of the left femoral neck. 3. Normal bone density of the total left hip. The World Health Organization recently established the following: Osteoporosis occurs at -2.5 SD below peak bone mass. Osteopenia (low bone mass) occurs at -1.0 SD to -2.5 SD below peak bone mass. Low bone mass is the single most accurate predictor for fracture risk. (Peak bone mass occurs at 30 years of age in the axial skeleton (spine) and about 22 years of age in the femoral neck.) SL: [id number] Breast Mammo Scrn BHAVESH 07/08/2018 [facility] incl CAD MA BILATERAL DIGITAL SCREENING MAMMOGRAM WITH CAD: 07/08/2018 CLINICAL: Screening/Screening. Current study was evaluated with a Computer Aided Detection (CAD) system. COMPARISON:Comparison is made to exams dated: 06/28/2017 mammogram, 2016 mammogram, 06/17/2015 mammogram, 06/15/2014 mammogram, and 02/17/2013 mammogram - [facility]. TECHNIQUE: Mammographic views were obtained using digital acquisition. Current study was also evaluated with a Computer Aided Detection (CAD) system. FINDINGS: There are scattered fibroglandular densities in both breasts. There are benign calcifications in the right breast. There also are post operative findings in the left breast. There is a focal asymmetry in the right breast at 12 o'clock posterior depth. There also is a nodular density in the right breast posterior depth central to the nipple seen on the mediolateral oblique view only. No other significant masses, calcifications, or other findings are seen in either breast. IMPRESSION: INCOMPLETE: NEEDS ADDITIONAL IMAGING EVALUATION RECOMMENDATION:The focal asymmetry in the right breast at 12 o'clock posterior depth is indeterminate. Diagnostic mammography with possible ultrasound are recommended. The nodular density in the right breast posterior depth central to the nipple seen on the mediolateral oblique view only is indeterminate. Diagnostic mammography with possible ultrasound are recommended. This exam was interpreted at [id number] for [facility]. Orion aguirre/lacie:07/08/2018 10:20:45 Instructor Substitute Cosmetology(s): Lanette [place], [facility] letter sent: BI-RADS 0 Mammogram BI-RADS: 0 Indeterminate Spine lumbar 2 or 3 Procedure: Lumbar Spine Radiographs. [facility]: Back pain, no known injury. Comparison: None. FINDINGS: The 3 views of the lumbar spine show degenerative change most pronounced at L4-L5 and L5-S1 including narrowing of the intervertebral disc spaces, marginal osteophyte formation and facet joint hypertrop hy. No acute displaced fracture or spondylolisthesis is observed. Vascular calcifications are noted. IMPRESSION: 1. Degenerative change. SL:[id number] Spine cervical 2 or 3 Procedure. Cervical Spine Radiographs. [facility]2017 [facility] Clinical Indication: Neck pain, no known injury. Comparison: Radiograph of the cervical spine 08/03/2015. FINDINGS: The 3 views of the cervical spine show degenerative change from C3 through C7 including narrowing of the intervertebral disc spaces, marginal osteophyte formation and facet joint hypertrophy. No acute displaced fracture or subluxation is observed. IMPRESSION: 1. Degenerative change. SL:[id number] Breast Mammo Scrn BHAVESH 06/28/2017 [facility] incl CAD MA BILATERAL DIGITAL SCREENING MAMMOGRAM WITH CAD: 06/28/2017 CLINICAL: Screening/Screening. Current study was evaluated with a Computer Aided Detection (CAD) system. COMPARISON:Comparison is made to exams dated: 06/22/2016 mammogram, 06/17/2015 mammogram, 06/15/2014 mammogram, and 02/17/2013 mammogram - [facility]. TECHNIQUE: Mammographic views were obtained using digital [...] is recommended.(06/29/2018) This exam was interpreted at [id number] for [facility]. Orion aguirre/lacie:06/28/2017 14:01:38 Instructor Substitute Cosmetology(s): Lanette [place], [facility] letter sent: BI-RADS 1/2 Mammogram BI-RADS: 2 Benign Sinus paranasal 1 Clinical Indication: - headache; 03/14/2017 [facility] view DX Comparison: None FINDINGS: The 3 views of the sinuses show [...] maxillary sinus. Air-fluid levels are identified.. SL: [id number] Chest wo contrast CT CLINICAL HISTORY : abnormal CT of the abd, lower lung ho , [place] 07/21/2016 NICOLE OPID [place] EXAM : CT chest without contrast 07/21/2016 2:00 PM CHIEF STEWARD/STEWARDESS COMPARISON : CT abdomen and pelvis with [...] are are no pathologically enlarged mediastinal, hilar, supraclavicular , or axillary lymph nodes. The upper abdominal [...] have a known history of primary malignancy, pe rcutaneous biopsy of the dominant left lower lobe nodule may be beneficial.. 2. Moderate coronary artery calcifications. Abdomen/Pelvis w/wo STUDY: CT abdomen and pelvis with and without contrast. 07/07/2016 OPID [place] IV contrast CT COMPARISON: None. HISTORY: RLQ pain. TECHNIQUE: Contiguous axial images of the abdomen and pelvis were obtained before and after intravenous contrast administration including delayed images. Enteric contrast was given. Sagittal and coronal reformats were performed. DLP: 1685 mGy-cm. Contrast dose: 100ml Omnipaque. FINDINGS: Lung bases: Several nodules are seen in the lung bases measuring up to 4 mm ( image 1). Osseous structures: Degenerative changes of the spine. No suspicious osseous lesion. Liver: 2 simple cysts measuring up to 1.6 cm. 2.0 x 2.0 cm subtle hypodense lesion in the medial segment of left hepatic lobe (series 3, image 24) may represent metastatic lesion. Gallbladder: Contains gallstones. [...] diverticulitis. Cholelithiasis without acute cholecystitis. Abdomen AP DX EXAM: Abdomen one view 07/03/2016 9:46 AM CHIEF STEWARD/STEWARDESS 07/03/2016 [facility] HISTORY: 75 years Female right upper quadrant abdominal pain COMPARISON: None available. FINDINGS: There is a nonobstructive bowel gas pattern, with mild colonic stool. Probable vascular calcifications are noted in the pelvis. No evidence of mass effect or organomegaly. There is moderate lo wer lumbar degenerative change. No acute bony abnormalities are seen. IMPRESSION: 1. Nonobstructive bowel gas pattern. Digital Mammo - DIGITAL MAMMO SCREENING BHAVESH MA 06/22/2016 [facility] Screening [facility] BILATERAL DIGITAL SCREENING MAMMOGRAM WITH CAD: 06/22/2016 CLINICAL: Screening. Current study was evaluated with a Computer Aided Detection (CAD) system. Comparison is made to exams dated: 06/15/2014 mammogram and 06/17/2015 mammogram - [facility]. There are scattered fibroglandular densities in both breasts. There are benign calcifications in the right breast. No significant masses, calcifications, or other findings are seen in either breast. There has been no significant interval change. IMPRESSION: BENIGN There is no mammographic evidence of malignancy. A 1 year screening mammogram is recommended. Apolinar sam/lacie:07/11/2016 13:14:10 Instructor Substitute Cosmetology: Lanette [place], [facility] This exam was dictated and interpreted by [id number] for [facility]. letter sent: Normal exam Mammogram BI-RADS: 2 Benign Spine cervical series Exam: Cervical spine x-ray, 5 views 08/03/2015 [facility] Reason for Exam: NECK PAIN Comparison Exam: None Discussion: On lateral view, [...] the mid and lower cervical spine. Bone Density DXA Dual - Bone Density DXA Dual [employer] [place] 06/23/2015 [facility] BONE DENSITY EVALUATION: 06/23/2015 COMPARISON: 02/04/2013 Left femur neck using a HoloPurple Labs unit from [facility] with reported normal fracture risk, BMD of 0.813g/cm2 and T -score of -1.00. 02/04/2013 AP L1-L4 region of spine using a Hologic unit from [facility] with reported normal fracture risk, BMD of [...] density. This matches the World Health Organization's cri teria for osteopenia and places the patient at a medium risk for fracture. An additional bone density evaluation was performed 06/23/2015 on the left femur trochanter using a Hologic unit. The BMD average for the exam is 0.940 g/ cm2. The T-score is -0.60. This matches the Wo rld Health Organization's criteria for normal bone density and places the patient within normal limits of fracture risk. IMPRESSION: OSTEOPENIA Patient is at medium risk for fracture. This exam was dictated and interpreted by [id number] for [facility]. Kimo rose/lacie:06/24/2015 15:24:43 Instructor Substitute Cosmetology: Mana Tinoco, [facility] Digital Mammo - DIGITAL MAMMO SCREENING BHAVESH MA 06/17/2015 [facility] Screening Bhavesh MA BILATERAL DIGITAL SCREENING MAMMOGRAM WITH CAD: 06/17/2015 CLINICAL: Screening. Current study was evaluated with a Computer Aided Detection (CAD) system. Comparison is made to exams dated: 06/15/2014 mammogram and 02/17/2013 mammogram - [facility]. The tissue of both breasts is heterogeneously dense, which could obscure detection of small masses. No significant masses, calcifications, or other findings are seen in either breast. There has been no significant interval change. IMPRESSION: NEGATIVE There is no mammographic evidence of malignancy. A 1 year screening mammogram is recommended. Kimo rose/penrad:06/17/2015 13:47:44 Instructor Substitute Cosmetology: Mana Tinoco, [facility] This exam was dictated and interpreted by [id number] for [facility]. letter sent: Normal exam Mammogram BI-RADS: 1 Negative Consultation Notes No Data Provided for This Section Discharge Summaries No Data Provided for This Section History and Physicals No Data Provided for This Section Vital Signs Vital Sign Value Date Comments Source Systolic (mm Hg) 154 01/01/2019 [facility] Diastolic (mm Hg) 68 01/01/2019 [facility] Temperature Oral (F) 98.0 F 01/01/2019 [facility] Heart Rate 71 01/01/2019 [facility] Weight 76.818 01/01/2019 [facility] BMI Calculated 29.82 11/15/2018 [facility] Weight 76.364 11/15/2018 [facility] Systolic (mm Hg) 156 11/15/2018 [facility] Diastolic (mm Hg) 81 11/15/2018 [facility] Temperature Oral (F) 97.6 F 11/15/2018 [facility] Heart Rate 69 11/15/2018 [facility] Height 160.02 cm 11/15/2018 [facility] BMI Calculated 30.07 09/23/2018 [facility] Weight 77 09/23/2018 [facility] Height 160.02 cm 09/23/2018 [facility] Temperature Oral (F) 97.5 F 09/23/2018 [facility] Heart Rate 70 09/23/2018 [facility] Respitory Rate 17 09/23/2018 [facility] Systolic (mm Hg) 140 09/23/2018 [facility] Diastolic (mm Hg) 70 09/23/2018 [facility] Weight 76.818 09/10/2018 [facility] Temperature Oral (F) 97.6 F 09/10/2018 [facility] Respitory Rate 16 09/10/2018 [facility] Heart Rate 88 09/10/2018 [facility] Systolic (mm Hg) 130 09/10/2018 [facility] Diastolic (mm Hg) 69 09/10/2018 [facility] Height 160.02 cm 08/01/2018 [facility] Weight 77.045 08/01/2018 [facility] BMI Calculated 30.09 08/01/2018 [facility] Respitory Rate 18 08/01/2018 [facility] Heart Rate 77 08/01/2018 [facility] Systolic (mm Hg) 136 08/01/2018 [facility] Diastolic (mm Hg) 73 08/01/2018 [facility] Temperature Oral (F) 98.4 F 07/09/2018 [facility] Heart Rate 81 07/09/2018 [facility] Systolic (mm Hg) 160 07/09/2018 [facility] Diastolic (mm Hg) 74 07/09/2018 [facility] Weight 75 07/09/2018 [facility] Height 165.1 cm 07/08/2018 [facility] BMI Calculated 27.51 07/08/2018 [facility] Weight 75 07/08/2018 [facility] Heart Rate 91 07/08/2018 [facility] Systolic (mm Hg) 153 07/08/2018 [facility] Diastolic (mm Hg) 75 07/08/2018 [facility] Weight 77.273 05/16/2018 [facility] Respitory Rate 15 05/16/2018 [facility] Temperature Oral (F) 98.2 F 05/16/2018 [facility] Heart Rate 60 05/16/2018 [facility] Systolic (mm Hg) 132 05/16/2018 [facility] Diastolic (mm Hg) 60 05/16/2018 [facility] BMI Calculated 30.27 03/28/2018 [facility] Weight 77.5 03/28/2018 [facility] Height 160.02 cm 03/28/2018 [facility] Heart Rate 99 03/28/2018 [facility] Temperature Oral (F) 98.2 F 03/28/2018 [facility] Systolic (mm Hg) 132 03/28/2018 [facility] Diastolic (mm Hg) 66 03/28/2018 [facility] Weight 76.818 03/25/2018 [facility] BMI Calculated 30 03/25/2018 [facility] Height 160.02 cm 03/25/2018 [facility] Temperature Oral (F) 97.8 F 03/25/2018 [facility] Heart Rate 68 03/25/2018 [facility] Respitory Rate 17 03/25/2018 [facility] Systolic (mm Hg) 120 03/25/2018 [facility] Diastolic (mm Hg) 80 03/25/2018 [facility] BMI Calculated 28.52 03/08/2018 [facility] Weight 77.727 03/08/2018 [facility] Heart Rate 68 03/08/2018 [facility] Temperature Oral (F) 97.8 F 03/08/2018 [facility] Systolic (mm Hg) 139 03/08/2018 [facility] Diastolic (mm Hg) 74 03/08/2018 [facility] Height 165.1 cm 03/08/2018 [facility] Weight 77.273 03/05/2018 [facility] Systolic (mm Hg) 118 03/05/2018 [facility] Diastolic (mm Hg) 50 03/05/2018 [facility] Heart Rate 60 03/05/2018 [facility] Temperature Oral (F) 98.3 F 03/05/2018 [facility] Respitory Rate 14 03/05/2018 [facility] Height 161.29 cm 02/13/2018 [facility] Temperature Oral (F) 98.1 F 02/13/2018 [facility] Heart Rate 60 02/13/2018 [facility] Respitory Rate 14 02/13/2018 [facility] Systolic (mm Hg) 134 02/13/2018 [facility] Diastolic (mm Hg) 60 02/13/2018 [facility] Weight 78.636 02/13/2018 [facility] BMI Calculated 30.23 02/13/2018 [facility] Weight 76.534 10/31/2017 [facility] Height 165.1 cm 10/31/2017 [facility] BMI Calculated 28.08 10/31/2017 [facility] Heart Rate 86 10/31/2017 [facility] Temperature Oral (F) 98.8 F 10/31/2017 [facility] Systolic (mm Hg) 143 10/31/2017 [facility] Diastolic (mm Hg) 76 10/31/2017 [facility] BMI Calculated 29.41 09/19/2017 [facility] Weight 77.727 09/19/2017 [facility] Height 162.56 cm 09/19/2017 [facility] Systolic (mm Hg) 130 09/19/2017 [facility] Diastolic (mm Hg) 72 09/19/2017 [facility] Respitory Rate 17 09/19/2017 [facility] Heart Rate 80 09/19/2017 [facility] Temperature Oral (F) 98.2 F 09/19/2017 [facility] Weight 76.818 08/28/2017 [facility] Heart Rate 79 08/28/2017 [facility] Systolic (mm Hg) 129 08/28/2017 [facility] Diastolic (mm Hg) 68 08/28/2017 [facility] Systolic (mm Hg) 129 08/28/2017 [facility] Diastolic (mm Hg) 68 08/28/2017 [facility] Heart Rate 79 08/28/2017 MH [...] 07/25/2017 [facility] Group Heart Rate 81 07/25/2017 [facility] Weight 78.807 07/25/2017 [facility] Height 165.1 cm 06/28/2017 [facility] Weight 78.182 06/28/2017 [facility] BMI Calculated 28.68 06/28/2017 [facility] Heart Rate 84 06/28/2017 [facility] Systolic (mm Hg) 146 06/28/2017 [facility] Diastolic (mm Hg) 72 06/28/2017 [facility] Temperature Oral (F) 97.8 F 06/14/2017 [facility] Weight 78.636 06/14/2017 [facility] Systolic (mm Hg) 158 06/14/2017 [facility] Diastolic (mm Hg) 73 06/14/2017 [facility] Heart Rate 99 06/14/2017 [facility] Weight 79.091 04/27/2017 [facility] Height 163.83 cm 04/27/2017 [facility] BMI Calculated 29.47 04/27/2017 [facility] Systolic (mm Hg) 140 04/27/2017 [facility] Diastolic (mm Hg) 62 04/27/2017 [facility] Temperature Oral (F) 98.5 F 04/27/2017 [facility] Heart Rate 68 04/27/2017 [facility] Respitory Rate 15 04/27/2017 [facility] Encounters Location Location Encounter Encounter Reason Attending ADM DC Status Source Details Type Number For Provider Date Date Visit Outpatient [id number] Leah MELTON 03/17 [facility] [id number] SHAWNA 04/21 [facility] 1 [facility] Outpatient [id number] MAMMO VISIT 06/17 Active [facility] Outpatient [id number] BRENDON 06/17 Active [facility] 3 [place] Outpatient [id number] MAMMO VISIT 06/17 Active [facility] [place] Outpatient [id number] DEXA VISIT 06/23 Active [facility] Outpatient [id number] SHAWNA 07/15 [facility] 9 [place] Outpatient [id number] SHAWNA 08/02 Active [facility] 0 [facility] Outpatient [id number] XRAY VISIT 08/03 Active [facility] Outpatient [id number] XRAY VISIT 08/03 Active [facility] Outpatient [id number] Leah NICHOLSONE 09/15 [facility] Outpatient [id number] SHAWNA 02/06 Active [facility] [place] Outpatient [id number] JORDANA 02/24 Active [facility] [place] Outpatient [id number] Leah LINH 03/17 [facility] 3 [place] Outpatient [id number] SHAWNA 04/21 Active [facility] 5 [facility] Outpatient [id number] SHAWNA 04/28 Active [facility] Outpatient [id number] YAAKOV 05/18 Active [facility] Outpatient [id number] MAMMO VISIT 06/22 Active [facility] Outpatient [id number] ABDIFATAH 07/03 Active [facility] 2 [place] Outpatient [id number] XRAY VISIT 07/03 Active [facility] Outpt Diag [id number] Abdifatah 07/07 07/08 [facility] [place] Outpatient [id number] ABDIFATAH 07/10 Active [facility] 4 [place] Outpatient [id number] YAAKOV 07/10 Active [facility] 6 [facility] Outpt Diag [id number] Abdifatah 07/21 07/22 [facility] Out[facility] 1 [facility] [place] Outpatient [id number] ABDIFATAH 07/24 Active [facility] 9 [place] Outpatient [id number] JESUS 07/25 Active [facility] 0 [facility] Outpatient [id number] YAAKOV 08/03 Active [facility] 8 [place] Outpatient [id number] ABDIFATAH 08/07 Active [facility] 5 [facility] Outpatient [id number] L LINH 09/15 Active [facility] 7 [facility] Outpatient [id number] JESUS 11/28 Active [facility] 1 [place] Outpatient [id number] JESUS 12/19 Active [facility] 4 [facility] Outpatient [id number] ABDIFATAH 01/24 Active [facility] 6 [place] Outpatient [id number] ABDIFATAH 02/05 Active [facility] 2 [place] Outpatient [id number] JORDANA 03/14 Active [facility] 7 [place] Outpatient [id number] XRAY VISIT 03/14 Active [facility] [place] Outpatient [id number] XRAY VISIT 03/14 Active [facility] [place] Outpatient [id number] L LINH 03/21 Active [facility] 3 [facility] Outpatient [id number] SHAWNA 04/27 Active [facility] 8 [facility] [id number] Shawna 04/27 04/28 [facility] Medicine 8 [facility] Outpatient [id number] JORDANA 06/14 Active [facility] 2 [facility] Family Outpatient [id number] Jordana 06/14 06/15 Medicine 2 [facility] Family Phone [id number] 06/14 06/16 MH Medicine Message [facility] Phone [id number] 06/21 06/23 Cardiology Message Medical [facility] Outpatient [id number] BRENDON 06/28 Active [facility] 1 [place] Outpatient [id number] MAMMO VISIT 06/28 Active [facility] Outpatient [id number] MAMMO VISIT 06/28 Active [facility] [employer] Outpatient [id number] Brendon 06/28 06/29 [facility] Ambulatory [id number] NURSE VISIT 06/28 06/28 Radiology Pre-Reg [facility] Family Outpatient [id number] NURSE VISIT 06/28 06/29 Medicine [facility] Outpatient [id number] JODY 07/25 Active [facility] 6 [place] Outpatient [id number] XRAY VISIT 07/25 Active [facility] Outpatient [id number] XRAY VISIT 07/25 Active [facility] Family Outpatient [id number] Jody 07/25 07/26 Medicine 6 [facility] Family Outpatient [id number] NURSE VISIT 07/25 07/26 Medicine [facility] Ambulatory [id number] NURSE VISIT 07/25 07/25 Radiology Pre-Reg [facility] Outside [id number] 08/01 08/03 Cardiology Medical [facility] Outpatient [id number] JODY 08/03 Active [facility] 9 [facility] Family Outpatient [id number] Jody 08/03 08/04 Medicine 9 [facility] Outpatient [id number] JESUS 08/28 Active [facility] [place] Outpatient [id number] JODY 08/28 Active [facility] 0 [facility] Outpatient [id number] Jesus 08/28 08/29 Pulmonology [facility] Family Outpatient [id number] Jody 08/28 08/29 Medicine 0 [facility] Outpatient [id number] L LINH 09/19 Active [facility] 0 [facility] Outpatient [id number] L Linh 09/19 09/20 Cardiology 0 Maze [facility] Family Phone [id number] 09/24 09/26 MH Medicine Message Medical [facility] Phone [id number] 09/28 09/30 [facility] Outpatient [id number] REMY 10/31 Active [facility] 3 [place] [facility] Outpatient [id number] Jody 10/31 11/01 [facility] [place] Outpatient [id number] SHAWNA 02/13 Active [facility] 4 [place] [facility] Family Outpatient [id number] Shawna 02/13 02/14 Medicine 4 Medical [facility] Outpatient [id number] SHAWNA 03/05 Active [facility] 5 [facility] Outpatient [id number] Shawna 03/05 03/06 Medicine 5 [facility] Outpatient [id number] SREEKRISHNA 03/08 Active [facility] 6 [facility] [place] MG Outpatient [id number] Sreekrishna 03/08 03/09 Otolaryngol 6 [facility] Outpatient [id number] Leah LINH03/21 Active [facility] 2 [facility] Ambulatory [id number] L Linh 03/21 03/21 Cardiology Pre-Reg 2 Medical [facility] Outpatient [id number] L LINH03/25 Active [facility] [place] [facility] Outpatient [id number] L Linh 03/25 03/26 Cardiology 7 [facility] Outpatient [id number] JODY 03/28 Active [facility] 9 [facility] Outpatient [id number] Jody 03/28 03/29 Medicine 9 [facility] Outpatient [id number] SHAWNA 05/09 Active [facility] 1 [facility] Ambulatory [id number] Shawna 05/09 05/09 Medicine Pre-Reg 1 [facility] Outpatient [id number] SHAWNA 05/16 Active [facility] 0 Dariel [facility] Family Outpatient [id number] Shawna 05/16 05/17 Medicine 0 [facility] Outpatient [id number] MAMMO VISIT 07/08 [facility] [place] Outpatient [id number] MAMMO VISIT 07/08 [facility] Outpatient [id number] BRENDON 07/08 [facility] [place] [facility] Ambulatory [id number] NURSE VISIT 07/08 07/08 Radiology Pre-Reg [facility] Family Outpatient [id number] NURSE VISIT 07/08 07/09 Medicine [facility] [employer] Outpatient [id number] Brendon 07/08 07/09 [facility] Outpatient [id number] DOMENIC GALARZA 07/09 [facility] [place] Outpatient [id number] DEXA VISIT 07/09 [facility]iel Outpatient [id number] DEXA VISIT 07/09 [facility] [place] Outpatient [id number] DEXA VISIT 07/09 [facility] [place] Outpatient [id number] DEXA VISIT 07/09 [facility]iel Outpatient [id number] DEXA VISIT 07/09 [facility] [id number] 07/09 07/10 Medicine [facility] Ambulatory [id number] NURSE VISIT 07/09 07/09 Radiology Pre-Reg [facility] Family Outpatient [id number] NURSE VISIT 07/09 07/10 Medicine [facility] Ambulatory [id number] NURSE VISIT 07/09 07/09 Radiology Pre-Reg [facility] Ambulatory [id number] NURSE VISIT 07/09 07/09 Radiology Pre-Reg [facility] Ambulatory [id number] NURSE VISIT 07/09 07/09 Radiology Pre-Reg [facility] Outpt Diag [id number] Brendon 07/11 07/12 [facility] 2 [facility] [place] Outpatient [id number] [place] 08/01 Active [facility] 2 [place] [facility] Family Outpatient [id number] [place] 08/01 08/02 Medicine 2 [facility] Outpatient [id number] Jesus 09/10 Active [facility] 1 [facility]iel [facility] Outpatient [id number] Jesus 09/10 09/11 Pulmonology 1 Medical [facility] Outpatient [id number] L Linh 09/23 Active [facility]iel [facility] Outpatient [id number] L Linh 09/23 09/24 Cardiology [facility] Outpatient [id number] LAB VISIT 11/08 Active [facility] [place] Outpatient [id number] SHAWNA 11/15 Active [facility] 1 [facility] Outpatient [id number] Shawna 11/15 Active [facility] 3 [facility]iel [facility] Family Ambulatory [id number] Shawna 11/15 11/15 Medicine Pre-Reg 1 [facility] Family Outpatient [id number] Shawna 11/15 11/16 Medicine 3 [facility] Outpatient [id number] 01/01 [facility] [id number] 01/01 01/02 Medicine [facility] Outpatient [id number] L Linh 03/24 Active [facility] [place] Outpatient [id number] 05/09 Active [facility] 6 -VISIT, [facility] Outpatient [id number] Jody 05/16 Active [facility] [place] Outpatient [id number] MAMMO VISIT 07/10 Active [facility] [place] Procedures Procedure Code Date Perfomer Comments Source Mammogram [id number] 07/08/2018 Medical Group, [facility] [place] Cataract surgery [id number] 06/24/2018 Medical Group, [facility] [place] Removal impacted [id number] 03/08/2018 Medical cerumen requiring Group instrumentation, unilateral Colonoscopy<sup>1< [id number] 07/19/2016 [facility] /sup> Dr. Glez Group,Mische recommended 5 r Neuro,MH year followup [facility] [place] Procedure on [id number] 10/09/2013 left wrist vein MH [facility] wrist<sup>1</sup> repair 10/2013 [place] Procedure on [id number] 10/09/2013 left wrist vein Medical wrist<sup>2</sup> repair 10/2013 Group,Mische r Neuro,MH [facility] [place] Colonoscopy [id number] 12/18/2012 MH [facility] [place] CEIOL - Cataract [id number] 02/13/2011 right eye. [facility] extraction and [place] insertion of intraocular lens<sup>2</sup> CEIOL - Cataract [id number] 02/13/2011 right eye. Medical extraction and Group,Mische insertion of r Neuro, intraocular [facility] lens<sup>3</sup> [facility] Arthroscopy of [id number] 06/11/2010 Right knee Replacement 04/16/2011 MH [facility] knee<sup>3</sup> Total joint replacement. [place] Rotating Platform Knee, Fixed Bearing Knee. Arthroscopy of [id number] 06/11/2010 Right knee Replacement 04/16/2011 Medical knee<sup>4</sup> Total joint replacement. Group,Mische Rotating Platform Knee, Fixed Bearing Knee. r Neuro,MH [facility] [place] [facility] BSO - Total [id number] 06/11/2000 Benign [facility] abdominal pathology. [place] hysterectomy and bilateral salpingo-oophorect [place]<sup>4</sup> [facility] BSO - Total [id number] 06/11/2000 Benign Medical abdominal pathology. Group,Mische hysterectomy and r Neuro,MH bilateral [facility] [place] salpingo-oophorect [place] car[place]<sup>5</sup> Bunionectomy<sup>5 [id number] and bone spurs MH [facility] </sup> [place] Rotator cuff [id number] left MH [facility] repair<sup>6</sup> [place] Rotator cuff [id number] left Medical repair<sup>7</sup> Group Bunionectomy<sup>6 [id number] and bone spurs Medical </sup> Group,Mische r Neuro,MH [facility] [place] Pneumococcal [id number] 2016 with pcp Medical vaccination<sup>7< Group,Mische /sup> r Neuro,MH [facility] [place] Rotator cuff [id number] left Medical repair<sup>8</sup> Group,Mische r Neuro,MH [facility] [place] Assessment and Plan Assessment and Plan Date Source Extracted from:Title: Neurosurgery Spine Clinic Note 11/01/2017 [facility] Author: Melissa Iniguez CLINICAL INFORMATICS PHYSICIAN Date: 10/31/17 Ms Boudreaux is a 77 year old [...] agreement with above plan. Melissa Iniguez MSN, LEAD PRODUCER, ACNP- Neurosurgery Acute Care Nurse Practitioner Plan of Care No Data Provided for This Section Social History Social History Date Source Social History TypeResponse 08/01/2018 [facility] Alcohol Never Employment/School Work/School description: Retired.. Exercise Exercise type: Walking, Stationary Bike.1 Sexual Self Breast Exam Yes. Substance Abuse Use: None. Smoking Status Never smoker; Previous treatment: None; Ready to change: No; Concerns about tobacco use in household: No; Exposure to Tobacco Smoke None; Cigarette Smoking Last 365 Days No; Reg Smoking Cessation Counseling No2 entered on: 01/01/19 1about 15/30 minutes.2non-smoker Social History TypeResponse 08/01/2018 [facility] [place] Alcohol Never Employment/School Work/School description: Retired.. Exercise Exercise type: Walking, Stationary Bike.1 Sexual Self Breast Exam Yes. Substance Abuse Use: None. Smoking Status Never smoker; Previous treatment: None; Ready to change: No; Concerns about tobacco use in household: No; Exposure to Tobacco Smoke None; Cigarette Smoking Last 365 Days No; Reg Smoking Cessation Counseling No2 entered on: 01/01/19 1about 15/30 minutes.2non-smoker Social History TypeResponse 06/28/2017 [facility] Substance Abuse Use: None. Sexual Self Breast Exam Yes. Exercise Exercise type: Walking, Stationary Bike.1 Employment/School Work/School description: Retired.. Alcohol Never Smoking Status Never smoker; Previous treatment: None; Ready to change: No; Concerns about tobacco use in household: No; Exposure to Tobacco Smoke None; Cigarette Smoking Last 365 Days No; Reg Smoking Cessation Counseling No2 entered on: 10/31/17 1about 15/30 minutes.2non-smoker Family History No Data Provided for This Section Advance Directives No Data Provided for This Section Functional Status No Data Provided for This Section
--- OUTSIDE RECORDS SUMMARY | 2019-02-22 11:39 | XMS REPORT | Summary of Care ---
:1939 Author Organization [facility] Outpatient Imaging [place] Address [id number] [place] [address]- Encounter HQ Amador_artie(FIN) [id number] Date(s): 07/11/18 - 07/11/18 [facility] Outpatient Imaging [place] [address]- [place] Encounter Diagnosis Other abnormal and inconclusive findings on diagnostic imaging of breast (Final ) - 07/17/18 Discharge Disposition: Home or Self Care Attending Physician: Brendon Matthews MD Referring Physician: Brendon Matthews MD Vital Signs No data available for this section Problem List Condition Effective Dates Status Health Status Informant Epistaxis(Confirmed) Active Cervical spondylosis(Confirmed) Active Gallstones(Confirmed) Active Degenerative cervical disc(Confirmed) Active 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 Originally documented as PCN. Dprno4Lhvy migrated from [employer] on 10/08/14. Originally documented as DICYCLOMINE HCL. itching and swelling Medications No data available for this section Results No data available for this section Immunizations Given and Recorded Vaccine Date Status Refusal Reason pneumococcal 13-valent vaccine 03/05/18 Given influenza virus vaccine, inactivated 03/05/18 Given influenza virus vaccine, inactivated 04/27/17 Given influenza virus vaccine, inactivated 02/07/16 Given influenza virus vaccine, inactivated 04/21/15 Given influenza virus vaccine, inactivated1 04/23/14 Given influenza virus vaccine, inactivated2 04/24/13 Given diphtheria/pertussis, acel/tetanus adult3 04/23/14 Given Hx influenza vaccine-unspecified4 04/24/13 Given zoster vaccine live5 09/18/12 Given pneumococcal 23-valent vaccine6 04/17/12 Given 1Result Comment: fluzone high dose [ncc693]. Migrated from OBS ; Data migrated from [employer] on 07/13/2015.2Result Comment: fluzone (>3 yrs.) [slb406]. Migrated from OBS ; Data migrated from [employer] on 2015.3Result Comment: adacel [yha816]. Migrated from OBS ; Data migrated from [employer] on 07/13/2015.4Result Comment: given. Migrated from OBS ; Data migrated from [employer] on 07/13/2015.5Result Comment: zostavax. Migrated from OBS VIS: given September 18, 2012. ; Data migrated from [employer] on 07/13/2015.6Result Comment: pneumovax. Migrated from OBS VIS: -97 given April 17, 2012. ; Data migrated from [employer] on 2015. Procedures Procedure Date Related Diagnosis Body Site Status Mammogram 07/08/18 Completed Cataract surgery 06/24/18 Completed Colonoscopy1 07/19/16 Completed Procedure on wrist2 10/09/13 Completed CEIOL - Cataract extraction and 02/13/11 Completed insertion of intraocular lens3 Arthroscopy of knee4 2010 Completed CRIS BSO - Total abdominal hysterectomy 2000 Completed and bilateral salpingo-oophorectomy5 Bunionectomy6 Completed Pneumococcal vaccination7 Completed Rotator cuff repair8 Completed 1[facility] Glez recommended 5 year olslcshm5hydu wrist vein repair 10/201372657ffpka eye.4Right knee Replacement 04/16/2011 Total joint replacement. Rotating Platform Knee, Fixed Bearing Knee.5Benign pathology.6and bone [id number] with yij6pysj Social History Social History Type Response Alcohol Never Employment/School Work/School description: Retired.. Exercise Exercise type: Walking, Stationary Bike.1 Sexual Self Breast Exam Yes. Substance Abuse Use: None. Smoking Status Never smoker; Previous treatment: None; Ready to change: No; Concerns about tobacco use in household: No; Exposure to Tobacco Smoke None; Cigarette Smoking Last 365 Days No; Reg Smoking Cessation Counseling No2 entered on: 01/01/19 1about 15/30 minutes.2non-smoker Assessment and Plan No data available for this section
--- OUTSIDE RECORDS SUMMARY | 2019-02-22 11:39 | XMS REPORT | Summary of Care ---
:1939 Author Organization [facility] Cardiology [place] Address [address] [place] [address]- Care Team Providers Name Role Phone Onofre Rosario Primary Care Physician Encounter HQ Nolanr_artie(FIN) [id number] Date(s): 03/21/18 - 03/21/18 [facility] Cardiology [place] [address] [place] [id number]- Attending Physician: Leah Newman, MSN,RN, ACNP-BC Vital Signs No data available for this [...] Centricity on 01/07/15. Originally documented as PCN. [id number] migrated from [employer] on 10/08/14. Originally [...] 04/17/12 Given 1Result Comment: fluzone high dose [yfu119]. Migrated from OBS ; Data migrated from [employer] on 07/13/2015.2Result Comment: fluzone (>3 yrs.) [lih635]. Migrated from OBS ; Data migrated from [employer] on 2015.3Result Comment: adacel [fbo331]. Migrated from OBS ; Data migrated from [employer] on 07/13/2015.4Result Comment: given. Migrated from OBS ; Data migrated from [employer] on 07/13/2015.5Result Comment: zostavax. Migrated from OBS VIS: given September 18, 2012. ; Data migrated from [employer] on 07/13/2015.6Result Comment: pneumovax. Migrated from OBS VIS: - -97 given April 17, 2012. ; Data migrated from [employer] on 2015. Procedures Procedure Date Related Diagnosis [...] 1[facility] Dr[facility] 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 Rotating Platform Knee, Fixed Bearing Knee.5Benign pathology.6and bone [id number] with vdx5ylou Social History Social History Type Response Substance Abuse Use: None. Sexual Self Breast Exam Yes. Exercise Exercise type: Walking, Stationary Bike.1 Employment/School Work/School description: Retired.. Alcohol Never Smoking Status Never smoker; Previous treatment: None; Ready to change: No; Concerns about tobacco use in household: No; Exposure to Tobacco Smoke None; Cigarette Smoking Last 365 Days No; Reg Smoking Cessation Counseling No2 entered on: 09/23/18 1about 15/30 minutes.2non-smoker Assessment and Plan No data available for this section
--- OUTSIDE RECORDS SUMMARY | 2019-02-22 11:40 | XMS REPORT | Summary of Care ---
:1939 Author Organization [facility] Cardiology [place] Address [address] [place] [address]- Care Team Providers Name Role Phone Onofre Rosario Primary Care Physician Encounter HQ Nolangurpreet(ROD) [id number] Date(s): 03/25/18 - 03/25/18 [facility] Cardiology [place] [address] [place] [phone]- Discharge Disposition: Home or Self Care Attending Physician: Leah Newman, MSN,RN, ACNP-BC Vital Signs Most recent to oldest [Reference Range]: 1 Height 160.02 cm (03/25/18 9:36 AM) Temperature Oral [96.4-99.1 DegF] 97.8 DegF (03/25/18 9:36 AM) Blood Pressure [90-140/60-90 mmHg] 120/80 mmHg (03/25/18 9:36 AM) Respiratory Rate [14-20 BRMIN] 17 BRMIN (03/25/18 9:36 AM) Peripheral Pulse Rate [60-100 bpm] 68 bpm (03/25/18 9:36 AM) Weight 76.818 kg (03/25/18 9:36 AM) Body Mass Index 30 m2 (03/25/18 9:36 AM) Problem List Condition Effective Dates Status [...] Centricity on 01/07/15. Originally documented as PCN. Ivrzx6Yuxa migrated from [employer] on 10/08/14. Originally [...] 04/17/12 Given 1Result Comment: fluzone high dose [yae515]. Migrated from OBS ; Data migrated from [employer] on 07/13/2015.2Result Comment: fluzone (>3 yrs.) [hvp812]. Migrated from OBS ; Data migrated from [employer] on 2015.3Result Comment: adacel [xgv576]. Migrated from OBS ; Data migrated from [...] 1[facility] Dr[facility] Glez recommended 5 year pfyxxtjz5jaqp wrist vein repair 10/201387406dxfnk eye.4Right knee Replacement 04/16/2011 Total joint replacement. Rotating Platform Knee, Fixed Bearing Knee.5Benign pathology.6and bone [id number] with imb4qjxe Social History Social History Type Response Substance [...]
--- OUTSIDE RECORDS SUMMARY | 2019-02-22 11:40 | XMS REPORT | Summary of Care ---
:1939 Author Organization [facility] Address [address] [place] [address]- Care Team Providers Name Role Phone Onofre Rosario Primary Care Physician Encounter HQ Janetntr_artie(FIN) [id number] Date(s): 11/15/18 - 11/15/18 [facility] [address] [place] [address] [phone] Attending Physician: Onofre Rosario MD Vital Signs No data available for [...] Centricity on 01/07/15. Originally documented as PCN. Xheuz5Lagn migrated from [employer] on 10/08/14. Originally [...] 04/17/12 Given 1Result Comment: fluzone high dose [iqh694]. Migrated from OBS ; Data migrated from [employer] on 07/13/2015.2Result Comment: fluzone (>3 yrs.) [qxc767]. Migrated from OBS ; Data migrated from [employer] on 2015.3Result Comment: adacel [bxz303]. Migrated from OBS ; Data migrated from [employer] on 07/13/2015.4Result Comment: given. Migrated from OBS ; Data migrated from [employer] on 07/13/2015.5Result Comment: zostavax. Migrated from OBS VIS: given September 18, 2012. ; Data migrated from [employer] on 07/13/2015.6Result Comment: pneumovax. Migrated from OBS VIS: given April 17, 2012. ; Data migrated from [employer] on 2015. Procedures Procedure Date Related Diagnosis [...] 1[facility] Dr[facility] Glez recommended 5 year rgfjkrst6ghfj wrist vein repair 10/201325307qeixe eye.4Right knee Replacement 04/16/2011 Total joint replacement. Rotating Platform Knee, Fixed Bearing Knee.5Benign pathology.6and bone [id number] with nqz2grgd Social History Social History Type Response Substance Abuse Use: None. Sexual Self Breast Exam Yes. Exercise Exercise type: Walking, Stationary Bike.1 Employment/School Work/School description: Retired.. Alcohol Never Smoking Status Never smoker; Previous treatment: None; Ready to change: No; Concerns about tobacco use in household: No; Exposure to Tobacco Smoke None; Cigarette Smoking Last 365 Days No; Reg Smoking Cessation Counseling No2 entered on: 11/15/18 1about 15/30 minutes.2non-smoker Assessment and Plan No data available for this section
--- OUTSIDE RECORDS SUMMARY | 2019-02-22 11:40 | XMS REPORT | Summary of Care ---
:1939 Author Organization [facility] Pulmonology [place] Address [address] [place] [address]- Encounter HQ Nicholas(FIN) [id number] Date(s): 09/10/18 - 09/10/18 [facility] Pulmonology [place] [address] [place], [place] [id number]- Discharge Disposition: Home or Self Care Attending Physician: Alan Thrasher MD Vital Signs Most recent to oldest [Reference Range]: 1 Temperature Oral [96.4-99.1 DegF] 97.6 DegF (09/10/18 4:14 PM) Blood Pressure [90-140/60-90 mmHg] 130/69 mmHg (09/10/18 4:14 PM) Respiratory Rate [14-20 BRMIN] 16 BRMIN (09/10/18 4:14 PM) Peripheral Pulse Rate [60-100 bpm] 88 bpm (09/10/18 4:14 PM) Weight 76.818 kg (09/10/18 4:14 PM) Problem List Condition Effective Dates Status [...] Centricity on 01/07/15. Originally documented as PCN. [id number] migrated from [employer] on 10/08/14. Originally [...] 04/17/12 Given 1Result Comment: fluzone high dose [plt862]. Migrated from OBS ; Data migrated from [employer] on 07/13/2015.2Result Comment: fluzone (>3 yrs.) [iqg091]. Migrated from OBS ; Data migrated from [employer] on 2015.3Result Comment: adacel [vqx068]. Migrated from OBS ; Data migrated from [employer] on 07/13/2015.4Result Comment: given. Migrated from OBS ; Data migrated from [employer] on 07/13/2015.5Result Comment: zostavax. Migrated from OBS VIS: given September 18, 2012. ; Data migrated from [employer] on 07/13/2015.6Result Comment: pneumovax. Migrated from OBS VIS: given April 17, 2012. ; Data migrated from [employer] on 2015. Procedures Procedure Date Related Diagnosis [...] 1[facility] Dr[facility] 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 Rotating Platform Knee, Fixed Bearing Knee.5Benign pathology.6and bone [id number] with lxl5muaz Social History Social History Type Response Substance Abuse Use: None. Sexual Self Breast Exam Yes. Exercise Exercise type: Walking, Stationary Bike.1 Employment/School Work/School description: Retired.. Alcohol Never Smoking Status Never smoker; Previous treatment: None; Ready to change: No; Concerns about tobacco use in household: No; Exposure to Tobacco Smoke None; Cigarette Smoking Last 365 Days No; Reg Smoking Cessation Counseling No2 entered on: 09/10/18 1about 15/30 minutes.2non-smoker Assessment and Plan No data available for this section
--- OUTSIDE RECORDS SUMMARY | 2019-02-22 11:41 | XMS REPORT | Summary of Care ---
:[address] [facility] Address [address] [place] [address]- Care Team Providers Name Role Phone Onofre Rosario Primary Care Physician Encounter HQ Nicholas(ROD) [id number] Date(s): 03/28/18 - 03/28/18 [facility] [address] [place] [address] [phone] Discharge Disposition: Home or Self Care Attending Physician: Mar Campos DO Vital Signs Most recent to oldest [Reference Range]: 1 Height 160.02 cm (03/28/18 1:21 PM) Temperature Oral [96.4-99.1 DegF] 98.2 DegF (03/28/18 1:21 PM) Blood Pressure [90-140/60-90 mmHg] 132/66 mmHg (03/28/18 1:21 PM) Peripheral Pulse Rate [60-100 bpm] 99 bpm (03/28/18 1:21 PM) Weight 77.5 kg (03/28/18 1:21 PM) Body Mass Index 30.27 m2 (03/28/18 1:21 PM) Problem List Condition Effective Dates Status [...] Centricity on 01/07/15. Originally documented as PCN. [id number] migrated from [employer] on 10/08/14. Originally documented as DICYCLOMINE HCL. itching and swelling Medications Levaquin 500 mg oral tablet 500 mg=1 tab, PO, Q24H, X 10 day, # 10 tab, 0 Refill(s), Pharmacy: [facility]/pharmacy #[id number] Start Date: 03/28/18 Stop Date: 04/07/18 Status: Completed Results No data available for [...] influenza vaccine-unspecified4 04/24/13 Given zoster vaccine live5 4/10/13 Given pneumococcal 23-valent vaccine6 04/17/12 Given 1Result Comment: fluzone high dose [vwq684]. Migrated from OBS ; Data migrated from [employer] on 07/13/2015.2Result Comment: fluzone (>3 yrs.) [srp639]. Migrated from OBS ; Data migrated from [employer] on 2015.3Result Comment: adacel [mfo917]. Migrated from OBS ; Data migrated from [...] 1[facility] Dr[facility] 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 Rotating Platform Knee, Fixed Bearing Knee.5Benign pathology.6and bone [id number] with xoc1xdyt Social History Social History Type Response Substance [...]
--- OUTSIDE RECORDS SUMMARY | 2019-02-22 11:41 | XMS REPORT | Summary of Care ---
:1939 Author Organization [facility] Address [address] [place] [address] Encounter HQ Nicholas(FIN) [id number] Date(s): 07/09/18 - 07/09/18 [facility] [address] [place] [address] [phone] Discharge Disposition: Home or Self Care Vital Signs Most recent to oldest [Reference Range]: 1 Temperature Oral [96.4-99.1 DegF] 98.4 DegF (07/09/18 8:06 AM) Blood Pressure [90-140/60-90 mmHg] 160/74 mmHg *HI* (07/09/18 8:06 AM) Peripheral Pulse Rate [60-100 bpm] 81 bpm (07/09/18 8:06 AM) Weight 75 kg (07/09/18 8:06 AM) Problem List Condition Effective Dates Status [...] Centricity on 01/07/15. Originally documented as PCN. Npyfi5Iksx migrated from [employer] on 10/08/14. Originally documented as DICYCLOMINE HCL. itching and swelling Medications Levaquin 500 mg oral tablet 500 mg=1 tab, PO, Q24H, X 7 day, # 7 tab, 0 Refill(s), Pharmacy: [facility]/pharmacy # [id number] Start Date: 07/09/18 Stop Date: 07/16/18 Status: Completed Results No data available for [...] 04/17/12 Given 1Result Comment: fluzone high dose [jjs630]. Migrated from OBS ; Data migrated from [employer] on 07/13/2015.2Result Comment: fluzone (>3 yrs.) [zts594]. Migrated from OBS ; Data migrated from [employer] on 2015.3Result Comment: adacel [izm765]. Migrated from OBS ; Data migrated from [...] 1[facility] 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 Rotating Platform Knee, Fixed Bearing Knee.5Benign pathology.6and bone [id number] with rye0hutn Social History Social History Type Response Alcohol [...]
--- OUTSIDE RECORDS SUMMARY | 2019-02-22 11:41 | XMS REPORT | Summary of Care ---
:1939 Author Organization [facility] Address [address] [place] [address]- Care Team Providers Name Role Phone Onofre Rosario Primary Care Physician Encounter HQ Nolanzoila_artie(ROD) [id number] Date(s): 11/15/18 - 11/15/18 [facility] [address] [place] [address] [phone] Discharge Disposition: Home or Self Care Attending Physician: Onofre Rosario MD Vital Signs Most recent to oldest [Reference Range]: 1 Height 160.02 cm (11/15/18 9:02 AM) Temperature Oral [96.4-99.1 DegF] 97.6 DegF (11/15/18 9:02 AM) Blood Pressure [90-140/60-90 mmHg] 156/81 mmHg *HI* (11/15/18 9:02 AM) Peripheral Pulse Rate [60-100 bpm] 69 bpm (11/15/18 9:02 AM) Weight 76.364 kg (11/15/18 9:02 AM) Body Mass Index 29.82 m2 (11/15/18 9:02 AM) Problem List Condition Effective Dates Status [...] Centricity on 01/07/15. Originally documented as PCN. Gmsdk4Pohg migrated from [employer] on 10/08/14. Originally [...] 04/17/12 Given 1Result Comment: fluzone high dose [mjr617]. Migrated from OBS ; Data migrated from [employer] on 07/13/2015.2Result Comment: fluzone (>3 yrs.) [njy954]. Migrated from OBS ; Data migrated from [employer] on 2015.3Result Comment: adacel [nqi051]. Migrated from OBS ; Data migrated from [...] 1[facility] 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 Rotating Platform Knee, Fixed Bearing Knee.5Benign pathology.6and bone [id number] with nhm3axeb Social History Social History Type Response Substance [...]
--- OUTSIDE RECORDS SUMMARY | 2019-02-22 11:41 | XMS REPORT | Summary of Care ---
:1939 Author Organization [facility] Address [address] [place] [address]- Encounter HQ Nicholas(FIN) [id number] Date(s): 07/09/18 - 07/09/[address] [place] [address] [phone] Discharge Disposition: Home or Self Care Attending Physician: VISIT, NURSE [facility] Vital Signs No data available for this [...] Centricity on 01/07/15. Originally documented as PCN. Octcz8Unjc migrated from [employer] on 10/08/14. Originally [...] 04/17/12 Given 1Result Comment: fluzone high dose [log074]. Migrated from OBS ; Data migrated from [employer] on 07/13/2015.2Result Comment: fluzone (>3 yrs.) [lyj024]. Migrated from OBS ; Data migrated from [employer] on 2015.3Result Comment: adacel [djh041]. Migrated from OBS ; Data migrated from [...] 1[facility] 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 Rotating Platform Knee, Fixed Bearing Knee.5Benign pathology.6and bone [id number] with wzq3wghl Social History Social History Type Response Alcohol [...]
--- OUTSIDE RECORDS SUMMARY | 2019-02-22 11:42 | XMS REPORT | Summary of Care ---
:1939 Author Organization [facility] Radiology [address] [place] [address] Encounter HQ Nolanr_artie(FIN) [id number] Date(s): 07/09/18 - 07/09/[address] [place] [address] [phone] Attending Physician: VISIT, NURSE [facility] Vital [...] Centricity on 01/07/15. Originally documented as PCN. Cicvu4Imkj migrated from [employer] on 10/08/14. Originally [...] 04/17/12 Given 1Result Comment: fluzone high dose [dwu155]. Migrated from OBS ; Data migrated from [employer] on 07/13/2015.2Result Comment: fluzone (>3 yrs.) [jdm695]. Migrated from OBS ; Data migrated from [employer] on 2015.3Result Comment: adacel [ben224]. Migrated from OBS ; Data migrated from [...] 1[facility] 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 Rotating Platform Knee, Fixed Bearing Knee.5Benign pathology.6and bone [id number] with lpi0rloi Social History Social History Type Response Alcohol [...]
--- OUTSIDE RECORDS SUMMARY | 2019-02-22 11:42 | XMS REPORT | Summary of Care ---
:1939 Author Organization [facility] Radiology [address] [place] [address] Encounter HQ Nolanr_artie(FIN) [id number] Date(s): 07/09/18 - 07/09/[address] [place] [address] [phone] Attending Physician: VISIT, NURSE [facility] Vital [...] Centricity on 01/07/15. Originally documented as PCN. Pdgle3Zokw migrated from [employer] on 10/08/14. Originally [...] 04/17/12 Given 1Result Comment: fluzone high dose [keg183]. Migrated from OBS ; Data migrated from [employer] on 07/13/2015.2Result Comment: fluzone (>3 yrs.) [kgn382]. Migrated from OBS ; Data migrated from [employer] on 2015.3Result Comment: adacel [olj950]. Migrated from OBS ; Data migrated from [...] 1[facility] 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 Rotating Platform Knee, Fixed Bearing Knee.5Benign pathology.6and bone [id number] with tzz6fqrh Social History Social History Type Response Alcohol [...]
--- OUTSIDE RECORDS SUMMARY | 2019-02-22 11:43 | XMS REPORT | Summary of Care ---
:1939 Author Organization [facility] Radiology [address] [place] [address] Encounter HQ Nolanr_artie(FIN) [id number] Date(s): 07/09/18 - 07/09/[address] [place] [phone] Attending Physician: VISIT, NURSE [facility] Vital [...] Centricity on 01/07/15. Originally documented as PCN. Xtpcs8Zedi migrated from [employer] on 10/08/14. Originally [...] 04/17/12 Given 1Result Comment: fluzone high dose [wkf964]. Migrated from OBS ; Data migrated from [employer] on 07/13/2015.2Result Comment: fluzone (>3 yrs.) [ivs950]. Migrated from OBS ; Data migrated from [employer] on 2015.3Result Comment: adacel [mqh416]. Migrated from OBS ; Data migrated from [...] 1[facility] Glez recommended 5 year fbndvayr5ruos wrist vein repair 10/201308096ysaxn eye.4Right knee Replacement 04/16/2011 Total joint replacement. Rotating Platform Knee, Fixed Bearing Knee.5Benign pathology.6and bone [id number] with ade7irwn Social History Social History Type Response Alcohol [...]
--- OUTSIDE RECORDS SUMMARY | 2019-02-22 11:43 | XMS REPORT | Summary of Care ---
:1940 Author Organization [facility] Radiology [address] [place] [address]- Encounter HQ Encntr_artie(FIN) [id number] Date(s): 07/08/18 - 07/08/[address] [place] [address] [phone] Attending Physician: VISIT, NURSE STWC MAMMO Vital [...] Centricity on 01/07/15. Originally documented as PCN. [id number] migrated from [employer] on 10/08/14. Originally [...] 04/17/12 Given 1Result Comment: fluzone high dose [tdx517]. Migrated from OBS ; Data migrated from [employer] on 07/13/2015.2Result Comment: fluzone (>3 yrs.) [uaf371]. Migrated from OBS ; Data migrated from [employer] on 2015.3Result Comment: adacel [qga236]. Migrated from OBS ; Data migrated from [...] 1[facility] Dr[facility] Glez recommended 5 year rzavqsgu6hohu wrist vein repair 10/201348122jeent eye.4Right knee Replacement 04/16/2011 Total joint replacement. Rotating Platform Knee, Fixed Bearing Knee.5Benign pathology.6and bone [id number] with wfc3jjas Social History Social History Type Response Alcohol [...]
--- OUTSIDE RECORDS SUMMARY | 2019-02-22 11:43 | XMS REPORT | Summary of Care ---
:1940 Author Organization [facility] [place] Address [address] [place] [address]- Encounter HQ Nolanr_artie(FIN) [id number] Date(s): 07/08/18 - 07/08/18 [facility] [address] 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 Originally documented as PCN. [id number] migrated from [employer] on 10/08/14. Originally [...] 04/17/12 Given 1Result Comment: fluzone high dose [qsb580]. Migrated from OBS ; Data migrated from [employer] on 07/13/2015.2Result Comment: fluzone (>3 yrs.) [afa023]. Migrated from OBS ; Data migrated from [employer] on 2015.3Result Comment: adacel [glh235]. Migrated from OBS ; Data migrated from [...] 1[facility] Dr[facility] Glez recommended 5 year uxqxljfx9fgvx wrist vein repair 10/201338990rjdnu eye.4Right knee Replacement 04/16/2011 Total joint replacement. Rotating Platform Knee, Fixed Bearing Knee.5Benign pathology.6and bone [id number] with elv7qkat Social History Social History Type Response Alcohol [...]
--- OUTSIDE RECORDS SUMMARY | 2019-02-22 11:43 | XMS REPORT | Summary of Care ---
:1940 Author Organization [facility] Radiology [address] [place] [address]- Encounter HQ Nolanr_artie(FIN) [id number] Date(s): 07/09/18 - 07/09/[address] [place] [address] [phone] Attending Physician: VISIT, NURSE [facility] DEXA Vital [...] Centricity on 01/07/15. Originally documented as PCN. Tkkyo2Duha migrated from [employer] on 10/08/14. Originally [...] 04/17/12 Given 1Result Comment: fluzone high dose [atk390]. Migrated from OBS ; Data migrated from [employer] on 07/13/2015.2Result Comment: fluzone (>3 yrs.) [ivf704]. Migrated from OBS ; Data migrated from [employer] on 2015.3Result Comment: adacel [gyk493]. Migrated from OBS ; Data migrated from [...] 1[facility] Dr[facility] Glez recommended 5 year tklpqzvq9skpp wrist vein repair 10/201322255xjogx eye.4Right knee Replacement 04/16/2011 Total joint replacement. Rotating Platform Knee, Fixed Bearing Knee.5Benign pathology.6and bone [id number] with dyr7domr Social History Social History Type Response Alcohol [...]
--- OUTSIDE RECORDS SUMMARY | 2019-02-22 11:43 | XMS REPORT | Summary of Care ---
:1940 Author Organization [facility] Address [address] [place] [address]- Encounter HQ Nicholas(FIN) [id number] Date(s): 03/05/18 - 03/05/18 [facility] [address] [place] [address]- [phone] Discharge Disposition: Home or Self Care Attending Physician: Onofre Rosario MD Vital Signs Most recent to oldest [Reference Range]: 1 Temperature Oral [96.4-99.1 DegF] 98.3 DegF (03/05/18 3:47 PM) Blood Pressure [90-140/60-90 mmHg] 118/50 mmHg (03/05/18 3:47 PM) Respiratory Rate [14-20 BRMIN] 14 BRMIN (03/05/18 3:47 PM) Peripheral Pulse Rate [60-100 bpm] 60 bpm (03/05/18 3:47 PM) Weight 77.273 kg (03/05/18 3:47 PM) Problem List Condition Effective Dates Status [...] Centricity on 01/07/15. Originally documented as PCN. Ubioo2Goor migrated from [employer] on 10/08/14. Originally documented as DICYCLOMINE HCL. itching and swelling Medications Cheratussin AC oral syrup See Instructions, PRN cough, 5-10 mL PO Q6H prn cough, # 240 mL, 1 Refill(s) Start Date: 03/05/18 Stop Date: 04/04/18 Status: CompletedValtrex 1 g oral tablet 1 gm=1 tab, PO, ONCE, # 1 tab, 0 Refill(s), Pharmacy: [facility]/pharmacy #[id number] Start Date: 03/05/18 Stop Date: 03/25/18 Status: Discontinued Results No data available for [...] 04/17/12 Given 1Result Comment: fluzone high dose [dii209]. Migrated from OBS ; Data migrated from [employer] on 07/13/2015.2Result Comment: fluzone (>3 yrs.) [kzq377]. Migrated from OBS ; Data migrated from [employer] on 2015.3Result Comment: adacel [raz921]. Migrated from OBS ; Data migrated from [employer] on 07/13/2015.4Result Comment: given. Migrated from OBS ; Data migrated from [employer] on 07/13/2015.5Result Comment: zostavax. Migrated from OBS VIS: given September 18, 2012. ; Data migrated from [employer] on 07/13/2015.6Result Comment: pneumovax. Migrated from OBS VIS: given April 17, 2012. ; Data migrated from [employer] on 2015. Procedures Procedure Date Related Diagnosis [...] 1[facility] Dr[facility] Glez recommended 5 year kxtuemwi6koqo wrist vein repair 10/201360237atssy eye.4Right knee Replacement 04/16/2011 Total joint replacement. Rotating Platform Knee, Fixed Bearing Knee.5Benign pathology.6and bone [id number] with jra8lcfz Social History Social History Type Response Substance [...]
--- OUTSIDE RECORDS SUMMARY | 2019-02-22 11:43 | XMS REPORT | Summary of Care ---
:1940 Author Organization [facility] Address [address] [place] [address]- Care Team Providers Name Role Phone Onofre Rosario Primary Care Physician Encounter HQ Encntr_alivaishnavi(FIN) [id number] Date(s): 05/09/18 - 05/09/18 [facility] [address] [place] [address]- [phone] Attending Physician: Onofre Rosario MD Vital Signs [...] Centricity on 01/07/15. Originally documented as PCN. Vaeeq0Kauk migrated from [employer] on 10/08/14. Originally [...] 04/17/12 Given 1Result Comment: fluzone high dose [dao570]. Migrated from OBS ; Data migrated from [employer] on 07/13/2015.2Result Comment: fluzone (>3 yrs.) [iwt718]. Migrated from OBS ; Data migrated from [employer] on 2015.3Result Comment: adacel [lck300]. Migrated from OBS ; Data migrated from [employer] on 07/13/2015.4Result Comment: given. Migrated from OBS ; Data migrated from [employer] on 07/13/2015.5Result Comment: zostavax. Migrated from OBS VIS: given September 18, 2012. ; Data migrated from [employer] on 07/13/2015.6Result Comment: pneumovax. Migrated from OBS VIS: given April 17, 2012. ; Data migrated from [employer]AB[employer] on 2015. Procedures Procedure Date Related Diagnosis [...] 1[facility] Dr[facility] Glez recommended 5 year batbdfrb8pafo wrist vein repair 10/201302355lwvwo eye.4Right knee Replacement 04/16/2011 Total joint replacement. Rotating Platform Knee, Fixed Bearing Knee.5Benign pathology.6and bone [id number] with pil0lrww Social History Social History Type Response Substance [...]
--- OUTSIDE RECORDS SUMMARY | 2019-02-22 11:43 | XMS REPORT | Summary of Care ---
:1940 Author Organization [facility] Address [address] [address]- Encounter HQ Amador_artie(FIN) [id number] Date(s): 07/08/18 - 07/08/[address] [place] [address]- [phone] Discharge Disposition: Home or Self Care Attending [...] Centricity on 01/07/15. Originally documented as PCN. Gjoxb8Ivvk migrated from [employer] on 10/08/14. Originally [...] 04/17/12 Given 1Result Comment: fluzone high dose [dxy946]. Migrated from OBS ; Data migrated from [employer] on 07/13/2015.2Result Comment: fluzone (>3 yrs.) [hce616]. Migrated from OBS ; Data migrated from [employer] on 2015.3Result Comment: adacel [ynk365]. Migrated from OBS ; Data migrated from [...] 1[facility] Dr[facility] Glez recommended 5 year htntlveo5tacx wrist vein repair 10/201300344awrfo eye.4Right knee Replacement 04/16/2011 Total joint replacement. Rotating Platform Knee, Fixed Bearing Knee.5Benign pathology.6and bone [id number] with trx2kaoa Social History Social History Type Response Alcohol [...]
--- OUTSIDE RECORDS SUMMARY | 2019-02-22 11:44 | XMS REPORT | Summary of Care ---
:1940 Author Organization [facility] Address [address] [place] [address]- Care Team Providers Name Role Phone Onofre Rosario Primary Care Physician Encounter HQ Jantemagdalenazoila_artie(ROD) [id number] Date(s): 05/16/18 - 05/16/18 [facility] [address] [place] [address]- [phone] Discharge Disposition: Home or Self Care Attending Physician: Onofre Rosraio MD Vital Signs Most recent to oldest [Reference Range]: 1 Temperature Oral [96.4-99.1 DegF] 98.2 DegF (05/16/18 9:56 AM) Blood Pressure [90-140/60-90 mmHg] 132/60 mmHg (05/16/18 9:56 AM) Respiratory Rate [14-20 BRMIN] 15 BRMIN (05/16/18 9:56 AM) Peripheral Pulse Rate [60-100 bpm] 60 bpm (05/16/18 9:56 AM) Weight 77.273 kg (05/16/18 9:56 AM) Problem List Condition Effective Dates Status [...] Centricity on 01/07/15. Originally documented as PCN. Aemon2Yjpi migrated from [employer] on 10/08/14. Originally [...] 04/17/12 Given 1Result Comment: fluzone high dose [ayq320]. Migrated from OBS ; Data migrated from [employer] on 07/13/2015.2Result Comment: fluzone (>3 yrs.) [vqa265]. Migrated from OBS ; Data migrated from [employer] on 2015.3Result Comment: adacel [dtw086]. Migrated from OBS ; Data migrated from [...] 1[facility] Dr[facility] Glez recommended 5 year gbehmntt7vxfh wrist vein repair 10/201325144sfydj eye.4Right knee Replacement 04/16/2011 Total joint replacement. Rotating Platform Knee, Fixed Bearing Knee.5Benign pathology.6and bone [id number] with ert6jxny Social History Social History Type Response Substance [...]
--- OUTSIDE RECORDS SUMMARY | 2019-02-22 11:44 | XMS REPORT | Summary of Care ---
:1940 Author Organization [facility] [address] [place] [address]- Encounter HQ Amador_artie(FIN) [id number] Date(s): 03/08/18 - 03/08/18 [facility] [address] [place] [address]- Discharge Disposition: Home or Self Care Attending Physician: Raymond Willis MD Referring Physician: Onofre Rosario MD Vital Signs Most recent to oldest [Reference Range]: 1 Height 165.1 cm (03/08/18 9:35 AM) Temperature Oral [96.4-99.1 DegF] 97.8 DegF (03/08/18 9:35 AM) Blood Pressure [90-140/60-90 mmHg] 139/74 mmHg (03/08/18 9:35 AM) Peripheral Pulse Rate [60-100 bpm] 68 bpm (03/08/18 9:35 AM) Weight 77.727 kg (03/08/18 9:35 AM) Body Mass Index 28.52 m2 (03/08/18 9:35 AM) Problem List Condition Effective Dates Status [...] Centricity on 01/07/15. Originally documented as PCN. Zjdlu7Urld migrated from [employer] on 10/08/14. Originally [...] 04/17/12 Given 1Result Comment: fluzone high dose [dnb482]. Migrated from OBS ; Data migrated from [employer] on 07/13/2015.2Result Comment: fluzone (>3 yrs.) [blj821]. Migrated from OBS ; Data migrated from [employer] on 2015.3Result Comment: adacel [cfu427]. Migrated from OBS ; Data migrated from [...] Mammogram 07/08/18 Completed Cataract surgery 06/24/18 Completed Removal impacted cerumen requiring 03/08/18 Completed instrumentation, unilateral Colonoscopy1 07/19/16 Completed Procedure on wrist2 10/09/13 Completed CEIOL - Cataract extraction and 02/13/11 Completed insertion of intraocular lens3 Arthroscopy of knee4 2010 Completed CRIS BSO - Total abdominal hysterectomy 2000 Completed and bilateral salpingo-oophorectomy5 Bunionectomy6 Completed Pneumococcal vaccination7 Completed Rotator cuff repair8 Completed 1[facility] Glez recommended 5 year sytjzjwu1eczp wrist vein repair 10/201302102qyjas eye.4Right knee Replacement 04/16/2011 Total joint replacement. Rotating Platform Knee, Fixed Bearing Knee.5Benign pathology.6and bone [id number] with hss3xhlp Social History Social History Type Response Substance [...]
--- OUTSIDE RECORDS SUMMARY | 2019-02-22 11:44 | XMS REPORT | Summary of Care ---
:1940 Author Organization [facility] [place] Address [address] [place] [address]- Encounter HQ Amador_artie(FIN) [id number] Date(s): 09/23/18 - 09/23/18 [facility] [place] [address] [place] [address]- Discharge Disposition: Home or Self Care Attending Physician: Leah Newman, MSN,RN, ACNP-BC Vital Signs Most recent to oldest [Reference Range]: 1 Height 160.02 cm (09/23/18 10:26 AM) Temperature Oral [96.4-99.1 DegF] 97.5 DegF (09/23/18 10:26 AM) Blood Pressure [90-140/60-90 mmHg] 140/70 mmHg (09/23/18 10:26 AM) Respiratory Rate [14-20 BRMIN] 17 BRMIN (09/23/18 10:26 AM) Peripheral Pulse Rate [60-100 bpm] 70 bpm (09/23/18 10:26 AM) Weight 77 kg (09/23/18 10:26 AM) Body Mass Index 30.07 m2 (09/23/18 10:26 AM) Problem List Condition Effective Dates Status [...] Centricity on 01/07/15. Originally documented as PCN. Pturq1Hvwt migrated from [employer] on 10/08/14. Originally [...] 04/17/12 Given 1Result Comment: fluzone high dose [ihe083]. Migrated from OBS ; Data migrated from [employer] on 07/13/2015.2Result Comment: fluzone (>3 yrs.) [ohr144]. Migrated from OBS ; Data migrated from [employer] on 2015.3Result Comment: adacel [djj513]. Migrated from OBS ; Data migrated from [...] 1[facility] Dr[facility] Glez recommended 5 year hyfetsce2thpm wrist vein repair 10/201384675fuhgw eye.4Right knee Replacement 04/16/2011 Total joint replacement. Rotating Platform Knee, Fixed Bearing Knee.5Benign pathology.6and bone [id number] with tyx7njax Social History Social History Type Response Substance [...]
--- OUTSIDE RECORDS SUMMARY | 2019-02-22 11:44 | XMS REPORT | Summary of Care ---
:1940 Author Organization [facility] Address [address] [place] [address]- Encounter HQ Nicholas(FIN) [id number] Date(s): 01/01/19 - 01/01/19 [facility] [address] [facility] [place] [address]- [phone] Discharge Disposition: Home or Self Care Vital Signs Most recent to oldest [Reference Range]: 1 Temperature Oral [96.4-99.1 DegF] 98.0 DegF (01/01/19 8:09 AM) Blood Pressure [90-140/60-90 mmHg] 154/68 mmHg *HI* (01/01/19 8:09 AM) Peripheral Pulse Rate [60-100 bpm] 71 bpm (01/01/19 8:09 AM) Weight 76.818 kg (01/01/19 8:09 AM) Problem List Condition Effective Dates Status [...] Centricity on 01/07/15. Originally documented as PCN. Tladm7Cerv migrated from [employer] on 10/08/14. Originally documented as DICYCLOMINE HCL. itching and swelling Medications Levaquin 500 mg oral tablet 500 mg=1 tab, PO, Q24H, X 7 day, # 7 tab, 0 Refill(s), Pharmacy: [facility]/pharmacy # [id number] Start Date: 01/01/19 Stop Date: 01/08/19 Status: Ordered Results No data available for [...] 04/17/12 Given 1Result Comment: fluzone high dose [bkp755]. Migrated from OBS ; Data migrated from [employer] on 07/13/2015.2Result Comment: fluzone (>3 yrs.) [kjl832]. Migrated from OBS ; Data migrated from [employer] on 2015.3Result Comment: adacel [rxm948]. Migrated from OBS ; Data migrated from [...] 1[facility] Dr[facility] Glez recommended 5 year ufvzukxl8fdzv wrist vein repair 10/201368201nkcuj eye.4Right knee Replacement 04/16/2011 Total joint replacement. Rotating Platform Knee, Fixed Bearing Knee.5Benign pathology.6and bone [id number] with nlq4cxgu Social History Social History Type Response Substance [...]
[2019-02-22 12:54] LABS: Absolute Lymphocytes (CBC) 2.1 K/uL (0.7-4.9); Basophils % 0.4 % (0-1.3); Hematocrit 36.2 % (36.0-45.0); Lymphocytes % 43.1 % (15.3-44.8); MPV 9.6 fL (7.6-11.3); RBC Red Blood Cell Count 4.16 M/uL (3.86-4.86)
[2019-02-22 13:14] LABS: ALT/SGPT 27 U/L (12-78); AST/SGOT 12 U/L (15-37); Albumin 3.9 g/dL (3.4-5.0); Alkaline Phosphatase 104 U/L (45-117); BUN Blood Urea Nitrogen 14 mg/dL (7-18); Bicarbonate 27 mmol/L (21-32); Bilirubin Direct 0.1 mg/dL (0-0.2); Bilirubin Total 0.5 mg/dL (0.2-1.0); Glucose Level 93 mg/dL (74-106); Lipase 79 U/L (73-393); Potassium 3.6 mmol/L (3.5-5.1); Protein, Total 7.9 g/dL (6.4-8.2); Sodium Level 143 mmol/L (136-145)
[2019-02-22 13:32] LABS: Blood Morphology Comment NOT SEEN (NOT SEEN); Platelet Estimate ADEQ
--- NOTE | 2019-02-22 14:06 | RAD REPORT ---
EXAM DESCRIPTION: CT - Abdomen Pelvis W Contrast - 02/22/2019 1:43 pm CLINICAL HISTORY: Abdominal pain with nausea. COMPARISON: 2014 CT abdomen August 2018 CT chest TECHNIQUE: Computed axial tomography of the abdomen pelvis was obtained. 100 cc Isovue-300 was admin istered intravenously. Oral contrast was not requested which limits evaluation of bowel. All CT scans are performed using dose optimization technique as appropriate and may include automated exposure control or mA/KV adjustment according to patient size. FINDINGS: A subcentimeter right lower lobe nodule unchanged from the prior CT chest Small hepatic cysts Spleen, pancreas, and adrenals appear unremarkable. Small renal cysts Small gallstones suspected. Diverticula stem from the colon. Minimal stranding adjacent to the descending colon IMPRESSION: Cholelithiasis suspected Minimal stranding adjacent to the descending colon probably indicating minimal diverticulitis.
[2019-02-22] MEDS ORDERED: CIPROFLOXACIN HCL 500 MG TAB ONE (14:26)
[2019-02-22] MEDS ORDERED: METRONIDAZOLE 500mg IVPB 500 MG/100 ML BAG IV ONE (14:26)
--- NOTE | 2019-02-22 15:34 | ER ---
Nurse's Notes [facility] Name: Bo Boudreaux Age: 78 yrs Sex: Female : 1940 Arrival Date: 02/22/2019 Time: 11:34 Bed 25 Private MD: Diagnosis: Diverticulitis of large intestine without perforation or abscess without bleeding Presentation: 02/22 11:39 Acuity: JORJE 3 sg 11:47 Presenting complaint: Patient states: Grandchild had nausea vomiting, but recenlty Grace sg felt very sick only when eating, reports no diarrhea and that the stool has been normal. Transition of care: patient was not received from another setting of care. Onset of symptoms was February 22, 2019. Risk Assessment: Do you want to hurt yourself or someone else? Patient reports no desire to harm self or others. Initial Sepsis Screen: Does the patient meet any 2 criteria? No. Patient's initial sepsis screen is negative. Does the patient have a suspected source of infection? No. Patient's initial sepsis screen is negative. Care prior to arrival: None. 11:47 Method Of Arrival: Ambulatory sg Historical: - Allergies: 11:39 PENICILLINS; sg - PMHx: 11:39 Hyperlipidemia; Hypertension; sg - PSHx: 11:39 RIGHT KNEE; Hysterectomy; LEFT WRIST; ROTATOR CUFF LEFT ARM; FOOT SURGERY PANCHO; sg - Immunization history:: Adult Immunizations up to date. - Social history:: Smoking status: Patient/guardian denies using tobacco. - Ebola Screening: : Patient negative for fever greater than or equal to 101.5 degrees Fahrenheit, and additional compatible Ebola Virus Disease symptoms Patient denies exposure to infectious person Patient denies travel to an Ebola-affected area in the 21 days before illness onset No symptoms or risks identified at this time. Screenin:30 Abuse screen: Denies threats or abuse. Denies injuries from another. Nutritional ca1 screening: No deficits noted. Tuberculosis screening: No symptoms or risk factors identified. Fall Risk IV access (20 points). Assessment: 12:30 General: Appears in no apparent distress. comfortable, Behavior is calm, cooperative, ca1 appropriate for age. Pain: Complains of pain in abdomen Pain does not radiate. Pain currently is 3 out of 10 on a pain scale. at worst was 8 out of 10 on a pain scale. Quality of pain is described as crampy, Pain began 5 days ago Is intermittent. Neuro: Level of Consciousness is awake, alert, obeys commands, Oriented to person, place, time, situation, Appropriate for age. Cardiovascular: Heart tones S1 S2 present Capillary refill < 3 seconds Patient's skin is warm and dry. Pulses are all present. Respiratory: Airway is patent Respiratory effort is even, unlabored, Respiratory pattern is regular, symmetrical, Breath sounds are clear bilaterally. GI: Abdomen is round non-distended, Bowel sounds present X 4 quads. Abd is soft X 4 quads Abdomen is tender to palpation in right lower quadrant Reports soft stools and sever cramps during a BM. : No deficits noted. No signs and/or symptoms were reported regarding the genitourinary system. EENT: No deficits noted. No signs and/or symptoms were reported regarding the EENT system. Derm: Skin is intact, is healthy with good turgor, Skin is pink, warm \T\ dry. Musculoskeletal: Circulation, motion, and sensation intact. Capillary refill < 3 seconds, Range of motion: intact in all extremities. 13:30 Reassessment: Patient appears in no apparent distress at this time. Patient and/or ca1 family updated on plan of care and expected duration. Pain level reassessed. Patient is alert, oriented x 3, equal unlabored respirations, skin warm/dry/pink. 14:31 Reassessment: Patient appears in no apparent distress at this time. Patient and/or ca1 family updated on plan of care and expected duration. Pain level reassessed. Patient is alert, oriented x 3, equal unlabored respirations, skin warm/dry/pink. 15:47 Reassessment: Patient appears in no apparent distress at this time. Patient is alert, ca1 oriented x 3, equal unlabored respirations, skin warm/dry/pink. Vital Signs: 11:46 BP 139 / 64; Pulse 87; Resp 17; Temp 98.2; Pulse Ox 100% ; Weight 74.84 kg; Height 5 sg ft. 5 in. (165.10 cm); Pain 3/10; 12:30 BP 136 / 91; Pulse 67; Resp 17 S; Pulse Ox 98% on R/A; ca1 14:32 BP 139 / 61; Pulse 68; Resp 17 S; Pulse Ox 100% on R/A; ca1 15:47 BP 137 / 62; Pulse 65; Resp 19 S; Pulse Ox 100% on R/A; ca1 11:46 Body Mass Index 27.46 (74.84 kg, 165.10 cm) ED Course: 11:34 Patient arrived in ED. rg4 11:38 Arm band placed on. sg 11:39 Triage completed. sg 12:15 Bennett King NP is PHCP. pm1 12:15 Philip Marlow MD is Attending Physician. pm1 12:30 Patient has correct armband on for positive identification. Placed in gown. Bed in low ca1 position. Call light in reach. Side rails up X 1. Pulse ox on. NIBP on. Warm blanket given. 12:30 No provider procedures requiring assistance completed. Inserted saline lock: 22 gauge ca1 in left antecubital area, using aseptic technique. Blood collected. 12:49 Yasmin Collado RN is Primary Nurse. ca1 13:43 CT Abd/Pelvis - IV Contrast Only In Process Unspecified. EDMS 15:34 Dg Gallego MD is Referral Physician. pm1 16:09 IV discontinued, intact, bleeding controlled, No redness/swelling at site. Pressure ca1 dressing applied. Administered Medications: 14:30 Drug: Cipro 500 mg Route: PO; ca1 15:00 Follow up: Response: No adverse reaction ca1 15:30 Follow up: Response: No adverse reaction ca1 14:30 Drug: Flagyl 500 mg Volume: 100 ml; Route: IVPB; Rate: 200 ml/hr; Infused Over: 30 ca1 mins; Site: left antecubital; 15:30 Follow up: Response: No adverse reaction; IV Status: Completed infusion ca1 15:30 Follow up: Response: No adverse reaction; IV Status: Completed infusion ca1 Outcome: 15:33 Discharge ordered by . pm1 16:09 Discharged to home ambulatory. ca1 16:09 Condition: stable 16:09 Discharge instructions given to patient, Instructed on discharge instructions, follow up and referral plans. medication usage, Demonstrated understanding of instructions, follow-up care, medications, Prescriptions given X 3. 16:10 Patient left the ED. ca1 Signatures: Dispatcher [employer] EDMS Jaswinder Resendiz RN RN Bennett King NP DRESS MARKER pm1 Suzanna Malik rg4 Yasmin Collado RN RN ca1 Corrections: (The following items were deleted from the chart) 14:31 14:31 Reassessment: Patient appears in no apparent distress at this time. ca1 ca1
--- NOTE | 2019-02-22 15:34 | EDPHYS ---
Physician Documentation [facility] Name: Bo Boudreaux Age: 78 yrs Sex: Female : 1940 Arrival Date: 02/22/2019 Time: 11:34 Bed 25 Private MD: ED Physician Philip Marlow HPI: 02/22 13:34 This 78 yrs old Black Female presents to ER via Ambulatory with complaints of Abdominal pm1 Pain. 13:34 The patient presents with abdominal pain in the lower abdomen. pm1 13:34 Onset: The symptoms/episode began/occurred 3 day(s) ago. The symptoms do not radiate. pm1 Associated signs and symptoms: Pertinent positives: nausea, soft stool, Pertinent negatives: chest pain, dysuria, fever, shortness of breath, vomiting. The symptoms are described as crampy, bloating. Modifying factors: The symptoms are alleviated by nothing, the symptoms are aggravated by food. Severity of pain: in the emergency department the pain is unchanged. The patient has not experienced similar symptoms in the past. The patient has not recently seen a physician. Grandchild with stomach virus recently. 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 - Social history:: Smoking status: Patient/guardian denies using tobacco. - Ebola Screening: : Patient negative for fever greater than or equal to 101.5 degrees Fahrenheit, and additional compatible Ebola Virus Disease symptoms Patient denies exposure to infectious person Patient denies travel to an Ebola-affected area in the 21 days before illness onset No symptoms or risks identified at this time. ROS: 13:34 Constitutional: Negative for fever, chills, and weight loss, Eyes: Negative for injury, pm1 pain, redness, and discharge, ENT: Negative for injury, pain, and discharge, Neck: Negative for injury, pain, and swelling, Cardiovascular: Negative for chest pain, palpitations, and edema, Respiratory: Negative for shortness of breath, cough, wheezing, and pleuritic chest pain. 13:34 Back: Negative for injury and pain, : Negative for injury, bleeding, discharge, and swelling, MS/Extremity: Negative for injury and deformity, Skin: Negative for injury, rash, and discoloration, Neuro: Negative for headache, weakness, numbness, tingling, and seizure. 13:34 Abdomen/GI: Positive for abdominal pain, nausea, Negative for vomiting, diarrhea, constipation. Exam: 13:34 Constitutional: This is a well developed, well nourished patient who is awake, alert, pm1 and in no acute distress. Head/Face: Normocephalic, atraumatic. Eyes: Pupils equal round and reactive to light, extra-ocular motions intact. Lids and lashes normal. Conjunctiva and sclera are non-icteric and not injected. Cornea within normal limits. Periorbital areas with no swelling, redness, or edema. ENT: Nares patent. No nasal discharge, no septal abnormalities noted. Tympanic membranes are normal and external auditory canals are clear. Oropharynx with no redness, swelling, or masses, exudates, or evidence of obstruction, uvula midline. Mucous membranes moist. Neck: Trachea midline, no thyromegaly or masses palpated, and no cervical lymphadenopathy. Supple, full range of motion without nuchal rigidity, or vertebral point tenderness. No Meningismus. Chest/axilla: Normal chest wall appearance and motion. Nontender with no deformity. No lesions are appreciated. Cardiovascular: Regular rate and rhythm with a normal S1 and S2. No gallops, murmurs, or rubs. Normal PMI, no JVD. No pulse deficits. Respiratory: Lungs have equal breath sounds bilaterally, clear to auscultation and percussion. No rales, rhonchi or wheezes noted. No increased work of breathing, no retractions or nasal flaring. Abdomen/GI: Soft, non-tender, with normal bowel sounds. No distension or tympany. No guarding or rebound. No evidence of tenderness throughout. Back: No spinal tenderness. No costovertebral tenderness. Full range of motion. Skin: Warm, dry with normal turgor. Normal color with no rashes, no lesions, and no evidence of cellulitis. MS/ Extremity: Pulses equal, no cyanosis. Neurovascular intact. Full, normal range of motion. 13:34 Neuro: Orientation: is normal, Motor: is normal, moves all fours, Gait: is steady, at a normal pace, without difficulty. Vital Signs: 11:46 BP 139 / 64; Pulse 87; Resp 17; Temp 98.2; Pulse Ox 100% ; Weight 74.84 kg; Height 5 sg ft. 5 in. (165.10 cm); Pain 3/10; 12:30 BP 136 / 91; Pulse 67; Resp 17 S; Pulse Ox 98% on R/A; ca1 14:32 BP 139 / 61; Pulse 68; Resp 17 S; Pulse Ox 100% on R/A; ca1 15:47 BP 137 / 62; Pulse 65; Resp 19 S; Pulse Ox 100% on R/A; ca1 11:46 Body Mass Index 27.46 (74.84 kg, 165.10 cm) sg MDM: 12:18 Patient medically screened. pm1 14:33 Data reviewed: vital signs. Data interpreted: Pulse oximetry: on room air is 100 %. pm1 Interpretation: normal. 14:34 Counseling: I had a detailed discussion with the patient and/or guardian regarding: the pm1 historical points, exam findings, and any diagnostic results supporting the discharge/admit diagnosis, lab results, radiology results. 15:31 Counseling: I had a detailed discussion with the patient and/or guardian regarding: the pm1 need for outpatient follow up, Needs colonoscopy post resolution of diverticulitis, to return to the emergency department if symptoms worsen or persist or if there are any questions or concerns that arise at home. 02/22 12:24 Order name: Basic Metabolic Panel; Complete Time: 13:16 pm1 02/22 12:24 Order name: CBC with Diff pm1 02/22 12:24 Order name: Creatinine for Radiology; Complete Time: 13:16 pm02/22 12:24 Order name: Hepatic Function; Complete Time: 13:16 pm02/22 12:24 Order name: Lipase; Complete Time: 13:16 pm02/22 13:33 Order name: Manual Differential; Complete Time: 13:33 EDMS 02/22 12:24 Order name: IV Saline Lock; Complete Time: 12:49 pm02/22 12:24 Order name: Labs collected and sent; Complete Time: 12:49 pm1 02/22 12:24 Order name: CT Abd/Pelvis - IV Contrast Only; Complete Time: 14:17 pm1 Administered Medications: 14:30 Drug: Cipro 500 mg Route: PO; ca1 15:00 Follow up: Response: No adverse reaction ca1 15:30 Follow up: Response: No adverse reaction ca1 14:30 Drug: Flagyl 500 mg Volume: 100 ml; Route: IVPB; Rate: 200 ml/hr; Infused Over: 30 ca1 mins; Site: left antecubital; 15:30 Follow up: Response: No adverse reaction; IV Status: Completed infusion ca1 15:30 Follow up: Response: No adverse reaction; IV Status: Completed infusion ca1 Disposition: 02/22/19 15:33 Discharged to Home. Impression: Diverticulitis of large intestine without perforation or abscess without bleeding. - Condition is Stable. - Discharge Instructions: Diverticulitis, Cholelithiasis. - Prescriptions for Bentyl 20 mg Oral Tablet - take 1 tablet by ORAL route every 6 hours As needed; 20 tablet. Flagyl 500 mg Oral Tablet - take 1 tablet by ORAL route every 8 hours for 10 days; 30 tablet. Cipro 500 mg Oral Tablet - take 1 tablet by ORAL route every 12 hours for 10 days; 20 tablet. - Medication Reconciliation Form, Thank You Letter, Antibiotic Education, Prescription Opioid Use form. - Follow up: Emergency Department; When: As needed; Reason: Worsening of condition. Follow up: Private Physician; When: 2 - 3 days; Reason: Recheck today's complaints, Continuance of care, Re-evaluation by your physician. Follow up: Dg Gallego MD; When: 2 - 3 days; Reason: Recheck today's complaints, Continuance of care, Re-evaluation by your physician. - Problem is new. - Symptoms have improved. Addendum: 02/24/2019 09:54 Co-signature as Attending Physician, Philip Marlow MD I agree with the assessment and k dr plan of care. Signatures: Dispatcher [employer] EDMS Jaswinder Resendiz RN RN Philip Marlow MD MD kdr Bennett King NP [employer] [employer] pm1 Yasmin Collado RN RN ca1 Corrections: (The following items were deleted from the chart) 02/22 15:34 15:33 02/22/2019 15:33 Discharged to Home. Impression: Diverticulitis of large pm1 intestine without perforation or abscess without bleeding. Condition is Stable. Forms are Medication Reconciliation Form, Thank You Letter, Antibiotic Education, Prescription Opioid Use. Follow up: Emergency Department; When: As needed; Reason: Worsening of condition. Follow up: Private Physician; When: 2 - 3 days; Reason: Recheck today's complaints, Continuance of care, Re-evaluation by your physician. Problem is new. Symptoms have improved. pm1 16:10 15:34 02/22/2019 15:33 Discharged to Home. Impression: Diverticulitis of large ca1 intestine without perforation or abscess without bleeding. Condition is Stable. Discharge Instructions: High-Fiber Diet, Diverticulitis, Cholelithiasis. Forms are Medication Reconciliation Form, Thank You Letter, Antibiotic Education, Prescription Opioid Use. Follow up: Emergency Department; When: As needed; Reason: Worsening of condition. Follow up: Private Physician; When: 2 - 3 days; Reason: Recheck today's complaints, Continuance of care, Re-evaluation by your physician. Follow up: Dg Gallego; When: 2 - 3 days; Reason: Recheck today's complaints, Continuance of care, Re-evaluation by your physician. Problem is new. Symptoms have improved. pm1
[2019-02-22 17:53] VITALS: TEMP 98.2
[2019-02-22 17:56] VITALS: O2SAT 100
[2019-02-22 17:58] VITALS: BP 137/62
== END 2019-02-22 16:10 | disposition home or self-care (01) ==
LOC: ER 11:33
DX: K57.32 Diverticulitis of large intestine without perforation or abscess without bleeding (principal); I10 Essential (primary) hypertension; Z88.0 Allergy status to penicillin
CPT/HCPCS: 96365; 85025; 80048; 36415; 80076; 83690; 74177; 99284; Q9967

== ENCOUNTER 2020-04-29 10:37 | Emergency (ER) | payer OTHER ==
--- OUTSIDE RECORDS SUMMARY | 2020-04-29 10:40 | XMS REPORT | Clinical Summary ---
:1940 Author Organization [facility] Address [address] [place] [address] Care Team Providers Name Role Phone Casie Barrera Primary Care Provider Allergies Active Allergy Reactions Severity Noted Date Comments Penicillins Hives 12/29/2019 As a child Medications Medication Sig Dispensed Refills Start Date End Date Status amLODIPine TAKE 1 0 10/07/2019 Active (NORVASC) 5 MG TABLET BY tablet MOUTH EVERY DAY bimatoprost INSTILL 1 0 11/20/2019 Active (LUMIGAN) 0.01 % DROP INTO Drop ophthalmic BOTH EYES AT solution BEDTIME levocetirizine PRN 0 12/15/2019 Acti ve (XYZAL) 5 MG tablet triamcinolone PRN 0 11/18/2019 Activ e (KENALOG) 0.1 % topical cream atorvastatin Take 20 mg 0 Active (LIPITOR) 20 MG by mouth tablet daily. psyllium Take 1 0 Active (METAMUCIL) powder packet by mouth as needed. cholecalciferol, Take by 0 Act ernst vitamin D3, 50 mcg mouth daily. (2,000 unit) Cap calcium carbonate Take 200 mg 0 Active (OS-ELMIRA) 600 mg by mouth calcium (1,500 mg) daily. Tab aspirin 81 MG EC Take 81 mg 0 Di scontinued tablet by mouth 0 (Stop Taki ng at daily. Discharge) aspirin 325 MG Take 1 30 tablet 0 01/16/2020 Expi red tablet tablet (325 0 mg total) by mouth daily for 30 days. ibuprofen Take 1 56 tablet 0 01/16/2020 (ADVIL,MOTRIN) 600 tablet (600 0 MG tablet mg total) by mouth 4 (four) times daily for 14 days. 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 S/P knee replacement 01/14/2020 Encounters Date Type Specialty Care Team Description 01/16/2020 Telephone Anesthesiology Ishan, Follow-up Tessa Vazquez RN 01/15/2020 Telephone Jeri Hooks Follow-up Lay 01/14/2020 Anesthesia Event General Surgery Taco Sullivan MD 01/14/2020 Surgery General Surgery Mayer, REVISION,TOT AL Darrick HAILE Jr., MD 01/14/2020 - Hospital Physical Medicine and [place], 01/15/2020 Encounter Rehabilitation Darrick Espana Jr., MD 01/14/2020 Travel 01/07/2020 Hospital Pre-Admission Testing Encounter 01/07/2020 Travel after 04/29/2019 Social History Tobacco Use Types Packs/Day Years Used Date Never Smoker Smokeless Tobacco: Never Used Alcohol Use Drinks/Week oz/Week Comments No Alcohol Habits Answer Date Recorded How often do you have a drink containing alcohol? Never 01/07/2020 How many drinks containing alcohol do you have on a typical Not asked day when you are drinking? How often do you have six or more drinks on one occasion? No t asked Sex Assigned at Date Recorded Not on file Last Filed Vital Signs Vital Sign Reading Time Taken Comments Blood Pressure 136/65 01/15/2020 8:04 AM CDT Pulse 77 01/15/2020 8:04 AM CDT Temperature 37.2 C (98.9 F) 01/15/2020 8:04 AM CDT Respiratory Rate 16 01/15/2020 8:04 AM CDT Oxygen Saturation 98% 01/15/2020 8:04 AM CDT Inhaled Oxygen Concentration - - Weight 77.7 kg (171 lb 4.8 oz) 01/14/2020 5:50 AM CDT Height 165.1 cm (5' 5") 01/14/2020 5:50 AM CDT Body Mass Index 28.51 01/14/2020 5:50 AM CDT Plan of Treatment Health Maintenance Due Date Last Done Comments PNEUMOCOCCAL 65+ YRS (1 of 1 - [id number]) 08/29/2004 MEDICARE ANNUAL WELLNESS (YEAR 2 or FIRST YEAR if no 06/12/2019 IPPE) INFLUENZA VACCINE (#1) 2020 Implants Implanted Type Area Mule Packer Device Shelf Model / Identifier Expiration Serial / Date Lot Jose Alberto Nakia Sunshine R+G-40 G [id number] - [id number] IMPLANTS Right: AEUS:CATHY 04/10/2022 [id number] / Implanted: Qty: 2 on 01/14/2020 by Darrick Bradley Jr., MD at [facility] Knee KULZER / [id number] Persona Revision Tibial Augment Half Block Right Later al Size Ef, 5mm Thickness TOTAL JOINT Right: Ale 06/10/2029 [id number] / Implanted: Qty: 1 on 01/14/2020 by Darrick Bradley Jr., MD at [facility] CONSTRUCT Knee / [id number] Persona Revision Tibial Augment Half Block Right Media l, Size Ef, 5mm Thickness TOTAL JOINT Right: Ale 08/08/2029 [id number] / Implanted: Qty: 1 on 01/14/2020 by Darrick Bradley Jr., MD at [facility] CONSTRUCT Knee / [id number] Persona Revision Tibia Fixed Non-Porous, Right Size E TOTAL JOINT Right: Ale 02/08/2029 [id number] / Implanted: Qty: 1 on 01/14/2020 by Darrick Bradley Jr., MD at [facility] CONSTRUCT Knee / [id number] Persona Revision Trabecular Metal Tibial Central Cone Size S mall TOTAL JOINT Right: Ale 08/08/2029 [id number] / Implanted: Qty: 1 on 01/14/2020 by Darrick Bradley Jr., MD at [facility] CONSTRUCT Knee / [id number] Persona Revision Stem Extension 15mm Diameter, 3mm Off set Splined, +135mm TOTAL JOINT Right: Ale 07/11/2029 [id number] / Implanted: Qty: 1 on 01/14/2020 by Darrick Bradley Jr., MD at [facility] CONSTRUCT Knee / [id number] Persona Revision Femoral Posterior Augment Size 5, 5+, 5mm Thick ness Right: Ale 08/08/2029 [id number] / Implanted: Qty: 1 on 01/14/2020 by Darrick Bradley Jr., MD at [facility] Knee / [id number] Persona Revision Stem Extension 3mm Offset Splined 14m m Diameter +135 Mm Length Right: Ale 07/11/2029 [id number] / Implanted: Qty: 1 on 01/14/2020 by Darrick Bradley Jr., MD at [facility] Knee / [id number] Persona Revision Femoral Distal Augment Size 5, 5+, 5mm Thicknes s Right: Ale 08/08/2029 [id number] / Implanted: Qty: 1 on 01/14/2020 by Darrick Bradley Jr., MD at [facility] Knee / [id number] Persona Vivacit-E Highly Crosslinked Waqas yethylene Articular Surface Fixed Bearing Cps Right 14mm Right: Ale 08/08/2022 [id number] / Implanted: Qty: 1 on 01/14/2020 by Darrick Bradley Jr., MD at [facility] Knee / [id number] Persona Revision Femur Cemented Standard Right Size 5 Righ t: Ale 08/08/2029 [id number] / Implanted: Qty: 1 on 01/14/2020 by Darrcik Bradley Jr., MD at [facility] Knee / [id number] Persona Revision Femoral Posterior Augment Size 5, 5+, 5mm Thick ness Right: Ale 06/10/2029 [id number] / Implanted: Qty: 1 on 01/14/2020 by Darrick Bradley Jr. MD at [facility] Knee / [id number] Procedures Procedure Name Priority Date/Time Associated Comments Diagnosis RHYTHM STRIP - SCAN 01/16/2020 1:40 PM CDT TRANSFUSION SERVICE 01/15/2020 6:03 REPORT - SCAN PM CDT CBC W/PLT COUNT & Routine 01/15/2020 4:39 Result s for this AUTO DIFFERENTIAL AM CDT procedure are in the results section. BASIC METABOLIC PANEL Routine 01/15/2020 4:39 Re sults for this (7) AM CDT procedure are i n the results section. CBC W/PLT COUNT & Routine 01/15/2020 4:39 Result s for this AUTO DIFFERENTIAL AM CDT procedure are in the results section. XR KNEE RIGHT 1 OR 2 Routine 01/14/2020 12:57 Res ults for this VIEWS PM CDT procedure are i n the results section. TISSUE EXAM AP Routine 01/14/2020 11:55 Results for this AM CDT procedure are i n the results section. SURGICALLY OBTAINED Routine 01/14/2020 11:49 Resu lts for this CULTURE + GRAM STAIN AM CDT procedu re are in the results section. FUNGUS CULTURE + Routine 01/14/2020 11:49 Results for this SMEAR AM CDT procedure are i n the results section. ANAEROBIC CULTURE Routine 01/14/2020 11:49 Result s for this AM CDT procedure are i n the results section. AFB CULTURE + SMEAR Routine 01/14/2020 11:49 Resu lts for this (NON-SPUTUM) AM CDT procedure are i n the results section. SPIN/CONCENTRATION Routine 01/14/2020 11:49 Resul ts for this CHARGE AM CDT procedure are i n the results section. SURGICALLY OBTAINED Routine 01/14/2020 11:46 Resu lts for this CULTURE + GRAM STAIN AM CDT procedu re are in the results section. FUNGUS CULTURE + Routine 01/14/2020 11:46 Results for this SMEAR AM CDT procedure are i n the results section. ANAEROBIC CULTURE Routine 01/14/2020 11:46 Result s for this AM CDT procedure are i n the results section. AFB CULTURE + SMEAR Routine 01/14/2020 11:46 Resu lts for this (NON-SPUTUM) AM CDT procedure are i n the results section. SURGICALLY OBTAINED Routine 01/14/2020 11:44 Resu lts for this CULTURE + GRAM STAIN AM CDT procedu re are in the results section. FUNGUS CULTURE + Routine 01/14/2020 11:44 Results for this SMEAR AM CDT procedure are i n the results section. ANAEROBIC CULTURE Routine 01/14/2020 11:44 Result s for this AM CDT procedure are i n the results section. AFB CULTURE + SMEAR Routine 01/14/2020 11:44 Resu lts for this (NON-SPUTUM) AM CDT procedure are i n the results section. ANESTHESIA PERIPHERAL Routine 01/14/2020 9:23 Re sults for this BLOCK AM CDT procedure are i n the results section. ANESTHESIA SPINAL Routine 01/14/2020 9:22 Result s for this BLOCK AM CDT procedure are i n the results section. REVISION,TOTAL KNEE 01/14/2020 9:08 Mechanical AM CDT loosening of internal left knee prosthetic joint, initial encounter (HCC) Special Needs (SPINAL W/PERIPHERAL NERVE B LOCK, ALE-PERSONA) TYPE AND SCREEN, AUTOMATED Routine 01/14/2020 6:55 AM CDT Results for this procedure are i n the results section . after 04/29/2019 Results RHYTHM STRIP - SCAN (01/16/2020 1:40 PM CDT) Narrative Performed At This result has an attachment that is no t available. TRANSFUSION SERVICE REPORT - SCAN (01/15/2020 6:03 PM CDT) Narrative Performed At This result has an attachment that is no t available. CBC with platelet count + automated diff (01/15/2020 4:39 AM CDT) Pathologist Sig nature WBC 12.7 (H) 3.5 - 10.5 [facility] K/L - [place] RBC 3.87 (L) 3.93 - 5.22 [facility] M/L - [place] Hemoglobin 11.6 11.2 - 15.7 [facility] GM/DL - [place] Hematocrit 34.2 34.1 - 44.9 % [facility] 88.4 79.4 - 94.[address] [facility] [place] MCH 30.0 25.6 - 32.[address] [facility] [place] MCHC 33.9 32.2 - 35.5 [facility] GM/DL - [place] RDW 12.9 11.7 - 14.4 % [facility] [place] Platelets 195 150 - 450 K/CU [facility] MM - [place] MPV 11.1 9.4 - 12.[address] [facility] [place] % Neutros 78 % [facility] % Lymphs 12 % [facility] % Monos 10 % [facility] % Eos 0 % [facility] % Baso 0 % [facility] # Neutros 9.83 (H) 1.56 - 6.13 [facility] K/L - [place] # Lymphs 1.48 1.18 - 3.74 [facility] K/L - [place] # Monos 1.32 (H) 0.24 - 0.36 [facility] K/L - [place] # Eos 0.00 (L) 0.04 - 0.36 [facility] K/L - [place] # Baso 0.02 0.01 - 0.08 [facility] K/L - [place] Immature 0 0 - 1 % [facility] Granulocytes-Relative - [place] Specimen Blood Performing Organization Address City/State/Zipcode Phone Number [facility] [address] [place] [address] Basic Metabolic Panel (01/15/2020 4:39 AM CDT) [facility] Signature Sodium 140 136 - 145 meq/L [facility] Potassium 4.0 3.5 - 5.1 meq/L [facility] Chloride 109 (H) 98 - 107 meq/L [facility] CO2 22 22 - 29 meq/L [facility] BUN 15 7 - 21 mg/dL [facility] Creatinine 0.60 0.57 - 1.25 [facility] mg/dL - [place] Glucose 105 70 - 105 mg/dL [facility] [place] Calcium 8.2 (L) 8.4 - 10.2 [facility] mg/dL - [place] EGFR 117Comment: mL/min/1.[address] [facility] ESTIMATED GFR IS NOT m - [place] ACCURATE CREATININE CLEARANCE IN PREDICTING GLOMERULAR FILTRATION RATE. ESTIMATED GFR IS NOT APPLICABLE FOR DIALYSIS PATIENTS. Specimen Blood Performing Organization Address City/State/Zipcode Phone Number 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 No acute hardware failure. Associated postsurgical changes including intra-art icular gas. No acute fractures. No joint malalignmen t. Diffuse soft tissue swelling. Scattered vascular calcifications. 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 No acute hardware failure. Associated postsurgical changes including intra-art icular gas. 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 No acute hardware failure. Associated postsurgical changes including intra-art icular gas. No acute fractures. No joint malalignmen t. Diffuse soft tissue swelling. Scattered vascular calcifications. 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 No acute hardware failure. Associated postsurgical changes including intra-art icular gas. Signed: Brenda Brown MD Report Verified Date/Time: 01/14/2020 1 7:25:10 Reading Location: [employer] [place] [address] - B01.627 Performing Organization Address City/State/Zipcode Phone Number GE RIS Tissue Exam (01/14/2020 11:55 AM CDT) Case Report Surgical Pathology Report Case: [id number] [facility] Authorizing Provider: Darrick Cook Collected: 01/14/2020 11:55 AM [facility] Jovi Martinez MD MEDICAL CENTER Ordering Location: [facility] OR Received: 01/14/2020 04:17 PM Perioperative Services Pathologist: Kenia Chaney MD Specimen: Explant, RIGH T KNEE TOTAL REVISION DIAGNOSIS [facility] Electronically A. HARDWARE, REMOVAL, GROSS EXAMINATION ONLY: [facility] signed by Shiv, - HARDWARE IDENTIFIED (SEE GROSS DESCRIPTION). [facility] MD Kenia on 01/15/2020 Signing Pathologist Direct Phone Line: at 12:16 PM CPT Code(s) [address] [facility] CLINICAL HISTORY Preop diagnosis: [facility]MEL BHATTI'[facility] Mechanical loosening [facility] of [facility] left [facility] knee prosthetic joint, initial encounter. SPECIMEN SOURCE Explant [facility] GROSS DESCRIPTION Received fresh labeled with the patient's name, accession number and "right knee total revision" are three pieces of metallic alcantara to alcantara-white orthopedic hardware ranging from 6.4 to 6.5 cm in greates [facility]EL [facility]TI[facility] t dimension. The following inscription is identified: [facility] [id number] C [id number] SZ2 STB 2.5 PE 10 mm [phone] [id number] A gross photograph is taken. No sections are submitted. This case is for gross examination only. PA/pl [facility] was performed at [facility] Department [facility] CENTER Pathology, [address] [place] [id number], Technical component [facility] was performed at [facility] Department of [facility] Pathology, [address] [place] [address], Professional [facility] component was Medical [facility] performed at Department of MEDICAL CENTER Pathology, [address] [place] [address], [place] [address], Specimen Tissue - Explant Performing Organization Address City/State/Zipcode Phone Number [facility] [address] [place] [phone] CENTER AFB culture + smear (non-sputum) (01/14/2020 11:49 AM CDT)Only the most recent of3 resultswithin the time period is included. Pathologist Sig nature Result No acid-fast bacilli [facility] isolated in 42 days [facility] AFB Smear No acid fast bacilli [facility] seen [facility] Specimen Tissue - Structure of right knee region (body structure) Performing Organization Address [facility] Phone Number [address] [address] CENTER Anaerobic culture (01/14/2020 11:49 AM CDT)Only the most recent of3 results within the time period is included. Pathologist Sig nature Result No anaerobes isolated [facility] Specimen Tissue - Structure of right knee region (body structure) Performing Organization Address City/[facility]/Zipcode Phone Number [address] [address] CENTER Surgically obtained culture + gram stain (01/14/2020 11:49 AM CDT)Only the most recent of3 resultswithin the time period is included. Result No growth [facility] Gram Stain Result 1+ WBCs [facility] Gram Stain Result No organisms seen [facility] Specimen Tissue - Structure of right knee region (body structure) Performing Organization Address [facility]/Zipcode Phone Number [address] [address] CENTER Fungus culture + smear (01/14/2020 11:49 AM CDT)Only the most recent of3 resultswithin the time period is included. Pathologist Sig nature Result No fungus isolated [facility] in 28 days [facility] Fungus Smear No fungi seen [facility] Specimen Tissue - Structure of right knee region (body structure) Performing Organization Address City/[facility]/Zipcode Phone Number [address] [phone] CENTER SPIN/CONCENTRATION CHARGE (01/14/2020 11:49 AM CDT) Pathologist Sig nature Concentration charged Done [facility] HEALT H [facility] Specimen Tissue - Structure of right knee region (body structure) Performing Organization Address [facility] Phone Number [address] [phone] [place] ANESTHESIA PERIPHERAL BLOCK (01/14/2020 9:23 AM CDT) Narrative Performed At Taco Sullivan MD 01/14/2020 9:25 AM Peripheral Block Patient location during procedure: pre-p rocedure Start time: 01/14/2020 9:09 AM End time: 01/14/2020 9:14 AM Procedure Indication: procedure for pain, at surgeon's request and post-op pain management Preanesthetic Checklist Completed: patient identified, pre-op ev aluation, timeout performed, IV checked, risks and benefits discussed, m onitors and equipment checked, anesthesia consent given, prep site dry prior to draping and maximum sterile barriers were used: cap, mask, sterile gown, s terile gloves, and large sterile sheet Staffing Anesthesiologist: Taco Sullivan MD Performed: personally Prep Prep: chlorhexidine Procedures: sterile gloves, surgical mask, surgical jon t, sterile technique and prep and sterile drape applied Peripheral Nerve Block Patient position: supine Patient monitoring: EKG, HR, BP and SpO2 Laterality: right Block type: adductor canal Injection technique: catheter ultrasound guided - prescan was complete d prior to procedure and needle tip was visualized throughout the entire procedure ultrasound image saved Block Dose: ropivicaine and catheter Infiltration strength: 0.5 % Dose: 20 mL Needle Needle type: over the needle catheter Needle gauge: 18 G Needle length: 75mm. Needle Localization: anatomical landma rks and US guided Hydrodissection? yes Dressing: Occlusive dressing applied in sterile fashion and Dermabond applied at the catheter insertion site Assessment Injection assessment: incremental inject ion and negative aspiration for heme LOC: Sedated with meaningful contact supplemental oxygen used.no evidence of intravascular injection and no heart rate changeno paresthesia patient had no immediate complications and patient gema erated the procedure well Additional Notes Patient tolerated well. No pain on injection or thro ughout procedure. Procedure Note Taco Sullivan MD - 01/14/2020 9:23 AM CDT Peripheral Block Patient location during procedure: pre-p rocedure Start time: 01/14/2020 9:09 AM End time: 01/14/2020 9:14 AM Procedure Indication: procedure for pain , at surgeon's request and post-op pain management Preanesthetic Checklist Completed: patient identified, pre-op ev aluation, timeout performed, IV checked, risks and benefits discussed, monitors and equipment checked, anesthesia consent given, prep site dry prior to draping and maximum sterile barriers were used: cap, mask, s terile gown, sterile gloves, and large sterile sheet Staffing Anesthesiologist: Taco Sullivan MD Performed: personally Prep Prep: chlorhexidine Procedures: sterile gloves, surgical mas k, surgical hat, sterile technique and prep and sterile drape applied Peripheral Nerve Block Patient position: supine Patient monitoring: EKG, HR, BP and SpO2 Laterality: right Block type: adductor canal Injection technique: catheter ultrasound guided - prescan was complete d prior to procedure and needle tip was visualized throughout the entire procedure ultrasound image saved Block Dose: ropivicaine and catheter Infiltration strength: 0.5 % Dose: 20 mL Needle Needle type: over the needle catheter Needle gauge: 18 G Needle length: 75mm. Needle Localization: anatomical landmar ks and US guided Hydrodissection? yes Dressing: Occlusive dressing applied in sterile fashion and Dermabond applied at the catheter insertion site Assessment Injection assessment: incremental inject ion and negative aspiration for heme LOC: Sedated with meaningful contact supplemental oxygen used.no evidence of intravascular injection and no heart rate changeno paresthesia patient had no immediate complications a nd patient tolerated the procedure well Additional Notes Patient tolerated well. No pain on inje ction or throughout procedure. ANESTHESIA SPINAL BLOCK (01/14/2020 9:22 AM CDT) Narrative Performed At Taco Sullivan MD 01/14/2020 9:23 AM Spinal Block Patient location during procedure: pre-p rocedure Start time: 01/14/2020 9:04 AM End time: 01/14/2020 9:08 AM Procedure Indication: procedure for pain , at surgeon's request, post-op pain management and primary anesthetic Staffing Anesthesiologist: Taco Sullivan MD Performed: personally Preanesthetic Checklist Completed: patient identified, pre-op ev aluation, timeout performed, IV checked, risks and benefits discussed, m onitors and equipment checked, anesthesia consent given, prep site dry prior to draping and maximum sterile barriers were used: cap, mask, sterile gown, s terile gloves, and large sterile sheet Prep Prep: Betadine Procedures: sterile gloves, surgical mask, surgical jon t, sterile technique and prep and sterile drape applied Spinal Block Patient position: sitting Patient monitoring: EKG, HR, BP and SpO2 Approach: midline Level: L3-4 Injection technique: single-shot landmark technique and landmark techniqu e Needle Needle type: Other (valerie) Needle gauge: 25 G Needle Length: 9 cm Used introducer Assessment Sensory level: T10 Events: cerebrospinal fluid patient had no immediate complications, patient had adequate level of anesthesia and negative Allis clamp test and patient tolerated the procedure well Additional Notes Patient tolerated well. No pain on injection or thro ughout procedure. Procedure Note Taco Sullivan MD - 01/14/2020 9:22 AM CDT Spinal Block Patient location during procedure: pre-p rocedure Start time: 01/14/2020 9:04 AM End time: 01/14/2020 9:08 AM Procedure Indication: procedure for pain , at surgeon's request, post-op pain management and primary anesthetic Staffing Anesthesiologist: Taco Sullivan MD Performed: personally Preanesthetic Checklist Completed: patient identified, pre-op ev aluation, timeout performed, IV checked, risks and benefits discussed, monitors and equipment checked, anesthesia consent given, prep site dry prior to draping and maximum sterile barriers were used: cap, mask, s terile gown, sterile gloves, and large sterile sheet Prep Prep: Betadine Procedures: sterile gloves, surgical mas k, surgical hat, sterile technique and prep and sterile drape applied Spinal Block Patient position: sitting Patient monitoring: EKG, HR, BP and SpO2 Approach: midline Level: L3-4 Injection technique: single-shot landmark technique and landmark techniqu e Needle Needle type: Other (valerie) Needle gauge: 25 G Needle Length: 9 cm Used introducer Assessment Sensory level: T10 Events: cerebrospinal fluid patient had no immediate complications, patient had adequate level of anesthesia and negative Allis clamp test and patient tolerated the procedure well Additional Notes Patient tolerated well. No pain on inje ction or throughout procedure. Type and screen, automated (01/14/2020 6:55 AM CDT) Pathologist Sig nature ABO/RH AUTOMATED O POSITIVE [facility] Ab Scrn NEGATIVE [facility] Specimen Blood Performing Organization Address City/State/Zipcode Phone Number [facility] [address] [place] [address] after 04/29/2019 Insurance Payer Benefit Plan / Subscriber ID Effective Phone Address T ype Group Dates HUMANA - HUMANA [id number] 2018-Prese Maps Contracted MEDICARE MGD MEDICARE ADV nt CARE HUMANA - MGD HUMANA HMO POS [id number] 2018-Prese HMO/POS CARE nt Advance Directives For more information, please contact: [phone] Code Status Date Activated Date Inactivated Comments Full Code 01/14/2020 2:09 PM 01/15/2020 12:54 PM This code status was determined by: Patient Full Code 01/14/2020 5:30 AM 01/14/2020 2:09 PM This code status was determined by: Patient
--- OUTSIDE RECORDS SUMMARY | 2020-04-29 10:42 | XMS REPORT | Continuity of Care Document ---
:1940 Author Organization [employer] Care Team Providers Name Role Phone [employer] Unavailable Un available Problems Problem Status Onset Classification Date Comments Sourc e Date Reported Other abnormal and 01/29/2019 OPID inconclusive findings on 019 [place] diagnostic imaging of Land breast Asymptomatic menopausal 01/26/2019 state 019 Medical Group Postmenopausal atrophic 01/26/2019 vaginitis 019 Medical Group Leukoplakia of vulva 01/26/2019 019 Medical Group Age-related osteoporosis 01/26/2019 without current 019 Medi nenita pathological fracture Group R10.31 - RIGHT LOWER Active OPID QUADRANT PAIN K57.3 017 [place] History of polyp of Active Problem 11/27/2019 Data migrated from [facility] on 12/16/14. colon (situation) 015 Data migrate d from [facility] on 12/16/14. Medical Group,[facility] Neuro, OPID [place] Spasmodic torticollis Active Problem 11/27/2019 Ruslan a migrated from GE [facility] on 12/16/14. (disorder) 014 Data migrated from GE [facility] on 12/16/14. Medical Data migrated from G E [facility] on 11/07/14. Group,[facility] all[facility] Neuro, OPID [place] Edema (finding) Active Problem 11/27/2019 Data 013 migrated Medical from [facility] allison on 11/07/14. Neuro, OPID [place] Hypertensive episode Active Problem 06/18/2017 Data (disorder) 013 migrated Medical from [facility], Centrici OPID on 11/07/14. [place] Hyperlipidemia Active Problem 07/24/2016 Data migra bree from GE [facility] on 12/16/14. MH OPID (disorder) 013 Data migrated from [facility] on 11/07/14. [place] Diverticular disease of Active Problem 11/27/2019 Data colon (disorder) 013 migrated Med ical from Group,[facility] allison on 11/07/14. Neuro, OPID [place] Internal hemorrhoids Active Problem 11/27/2019 Data MH (disorder) 013 [facility]14. Neuro, OPID [place] Osteoarthritis Active Problem 11/27/2019 Data MH (disorder) 012 migrated Medical from Group,[facility] allison on 11/07/14. 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, [facility] [place] Menopause present Active Problem 11/27/2019 [facility] (finding) Medical Group,[facility] Neuro, OPID [place] Mixed hyperlipidemia Active Problem 11/27/2019 (disorder) Medical Group,[facility], [facility] [place] Multiple nodules of lung Active Problem 11/27/2019 (finding) Medical Group,[facility] Neuro, OP[facility] [place] Neck pain (finding) Active Problem 11/27/2019 Medical Group,[facility] Neuro, OPID [place] Osteoporosis (disorder) Active Problem 11/27/2019 Medical Group,[facility] Neuro, OP[facility] [place] Atrophic vaginitis Active Problem 11/27/2019 (disorder) Medical Group,[facility], [facility] [place] Blood pressure Active Problem 11/27/2019 alteration (finding) Medical Group Osteopenia (disorder) Active Problem 06/18/2017 Medical Group, OP[facility] [place] Body mass index index Active Problem 07/24/2016 OPID 25-29 - overweight S ugar (finding) Land Right lower quadrant Active Problem 07/10/2016 OPID pain (finding) [place] Hypertensive disorder, Active Problem 11/27/2019 systemic arterial Me dical (disorder) Group Medications Medication Details Route Status Patient Ordering Order Source Instructions Provider Date Calcium 600 +D 1 tab, PO, Active oral tablet Daily, # 90 020 Medical tab, 0 Group Refill(s) Vitamin D3 1000 1,000 Active intl units oral IntlUnit = 020 Medic al capsule 1 cap, PO, Group Daily, # 100 cap, 0 Refill(s) atorvastatin 20 mg = 1 tab, Active oral tablet PO, Daily, 020 Medical # 90 tab, Group Refill(s) 4, [id number] Dextromethorphan 10 mL, PO, Active Hydrobromide 1 Q4H, # 120 020 Medica l MG/ML / mL, 0 Group Guaifenesin 10 Refill(s), MG/ML Oral Pharmacy: [id number] azithromycin 500 500 mg = 1 Active MH mg oral tablet tab, PO, 020 Medical Daily, X 5 Group day, # 5 tab, 0 Refill(s), [facility]acy: [id number] omeprazole 20 mg 20 mg = 1 Active oral delayed cap, PO, 019 Medical release capsule Daily, 0 Group Refill(s) doxycycline 100 mg = 1 Active hyclate 100 MG tab, PO, 019 Medical Oral Tablet Q12H Group Metronidazole 500 500 mg = 1 Active MH MG Oral Tablet tab, PO, 019 Medical [Flagyl] Q12H, 0 Group Refill(s) bismuth 524 mg = 2 Active MH subsalicylate 262 tab, CHEW, 019 Med ical MG Chewable Tablet BID, 0 Group [Pepto-bismol] Refill(s) Acetaminophen 325 325 mg = 1 Active MH MG Oral Capsule cap, PO, 019 Medical [Tylenol] TID, # 21 Group cap, 0 Refill(s), Pharmacy: [facility] #6723 azithromycin 500 500 mg = 1 Active MH mg oral tablet tab, PO, 019 Medical Daily, X 5 Group day, # 5 tab, 0 Refill(s), Pharmacy: [facility] #6723 Fluticasone 1 spray, Active propionate 0.05 NASAL, BID, 019 Medi nenita MG/ACTUAT Metered # 16 gm, 0 Camille up Dose Nasal Nucla Refill(s), [Flonase] Pharmacy: [facility]ac [facility] #6723 Fluticasone 1 spray, Inactive propionate 0.05 NASAL, BID, 019 Medi nenita MG/ACTUAT Metered # 16 gm, 0 Camille up Dose Nasal Nucla Refill(s), [Flonase] Pharmacy: [facility] #6704 Acetaminophen 325 325 mg = 1 Inactive MH MG Oral Capsule cap, PO, 019 Medical [Tylenol] TID, # 21 Group cap, 0 Refill(s), Pharmacy: [facility]ac [facility] #6704 azithromycin 500 500 mg = 1 Inactive MH mg oral tablet tab, PO, 019 Medical Daily, X 5 Group day, # 5 tab, 0 Refill(s), Pharmacy: [facility]/pharmac [facility] #6704 Levofloxacin 500 500 mg = 1 Active MH MG Oral Tablet tab, PO, 019 Medical [Levaquin] Q24H, X 7 Group day, # 7 tab, 0 Refill(s), Pharmacy: [facility]/pharmac [facility] #6719 Levofloxacin 500 500 mg = 1 No Longer MH MG Oral Tablet tab, PO, Active 019 Medical [Levaquin] Q24H, X 7 Group day, # 7 tab, 0 Refill(s), Pharmacy: [facility] #6704 Levofloxacin 500 500 mg = 1 No Longer MH MG Oral Tablet tab, PO, Active 018 Medical [Levaquin] Q24H, X 10 Group day, # 10 tab, 0 Refill(s), [facility] Codeine Phosphate See No Longer MH 2 MG/ML / Instruction Active 018 Medical Guaifenesin 20 s, PRN Group MG/ML Oral cough, 5-10 Solution mL PO Q6H [Cheratussin] prn cough, # 240 mL, 1 Refill(s) valacyclovir 1000 1 gm = 1 No Longer MH MG Oral Tablet tab, PO, Active 018 Medical [Valtrex] ONCE, # 1 Group tab, 0 Refill(s), [facility] Hydrocortisone 25 1 appl, No Longer MH MG/ML Topical TOP, BID, X Active 018 Medica l Cream 14 day, # Group 30 gm, 0 Refill(s), [facility] baclofen 10 mg See Active oral tablet Instruction 018 Medical s, # 90 Group tab, TAKE 1 TABLET BY MOUTH 3 TIMES A DAY NEEDED FOR SPASMS, Pharmacy: [facility] baclofen 10 mg See No Longer oral tablet Instruction Active 018 Medical s, # 90 Group tab, TAKE 1 TABLET BY MOUTH 3 TIMES A DAY NEEDED FOR SPASMS, [facility]: [facility] tramadol 50 mg = 1 No Longer hydrochloride 50 tab, PO, Active 018 Medica l MG Oral Tablet BID, X 10 Group day, # 10 tab, 0 Refill(s) baclofen 10 mg 10 mg = 1 No Longer MH oral tablet tab, PO, Active 018 Medical TID, PRN Group Spasms, # 90 tab, 0 Refill(s), [facility] Triamcinolone See Active Acetonide 1 MG/ML Instruction 018 Me dical Topical Cream s, apply Group small amount to affected area twice/day until symptoms resolved., # 60 gm, 1 Refill(s), Pharmacy: [facility]ac [facility] #6704 atorvastatin 20 mg 20 mg = 1 No Longer M H oral tablet tab, PO, Active 018 Medical Daily, # 90 Group tab, 0 Refill(s), Pharmacy: [facility] #6704 atorvastatin 20 mg 20 mg = 1 Active oral tablet tab, PO, 018 Medical Daily, # 90 Group tab, 5 Refill(s), Pharmacy: [facility]ac [facility] #6704 amLODIPine 5 mg See Active oral tablet Instruction 018 Medical s, TAKE 1 Group TABLET BY MOUTH DAILY, # 90 tab, 1 Refill(s), Pharmacy: [facility]/pharmac y #6704 levofloxacin 500 500 mg = 1 Active MH mg oral tablet tab, PO, 018 Medical Daily, X 10 Group day, # 10 tab, 0 Refill(s), Pharmacy: [facility]/pharmac y #6738, DC the Zithromax order Codeine Phosphate See Active 2 MG/ML / Instruction 018 Medical Guaifenesin 20 s, PRN Group MG/ML Oral cough, 5-10 Solution mL PO Q6H [Cheratussin] prn cough, # 240 mL, 1 Refill(s) {6 (Azithromycin See Inactive 250 MG Oral Tablet Instruction 018 M edical [Zithromax]) } s, Take 2 Group Pack [Z-PAKS] tablets by mouth the first day then 1 tablet by mouth days 2-5., X 5 day, # 6 tab, 0 Refill(s), Pharmacy: [facility] #6761 Allergies, Adverse Reactions, Alerts Substance Category Reaction Severity Reaction Status Date Comments S ource type Reported penicillins Assertion Drug Active Data <sup>1</sup allergy migrated Med ical > from [facility] on 01/07/15. Originally documented as PCN. Hives dicyclomine Assertion Drug Active Data <sup>2</sup allergy migrated Med ical > from [facility] on 10/08/14. Originally documented as DICYCLOMINE HCL. itching and swelling dicyclomine Assertion Drug Active Data OPID <sup>1</sup allergy migrated Sug ar > from [facility] Land [facility] on 10/08/14. Originally documented as DICYCLOMINE HCL. itching and swelling penicillins Assertion Drug Active Data OPID <sup>2</sup allergy migrated Sug ar > from [facility] Land [facility] on 01/07/15. Originally documented as PCN. Hives Immunizations Immunization Date Site Status Last Updated Comments Sour ce Given influenza virus Left completed [place]un M edical vaccine, 9 Deltoid Group inactivated pneumococcal Right completed Akbar Medi nenita 13-valent 8 Deltoid Group, vaccine OPID [place] influenza virus Left completed Abkar M edical vaccine, 8 Deltoid Group, inactivated OPID [place] influenza virus Left completed Akbar [facility] edical vaccine, 7 Deltoid Group,Misc inactivated her Neuro, OPID [place] influenza virus Left completed Akbar M edical vaccine, 6 Deltoid Group,Misc inactivated her Neuro, OPID [place] influenza virus Left completed Akbar M edical vaccine, 5 Deltoid Group,Misc inactivated her Neuro, OPID [place] diphtheria/pertu Left completed GE Result Medical ssis, 4 Deltoid Comment: Group,Misc acel/tetanus adacel her adult<sup>3</sup [[id number]]. [place] ro, > Migrated from OPID S ugar OBS ; Data [place] migrated from [facility] on 07/13/2015. influenza virus Right completed GE Result M edical vaccine, 4 Deltoid Comment: Group,Misc inactivated<sup> fluzone high her 1</sup> dose Neuro, [[id number]]. OPID [place] Migrated from Land OBS ; Data migrated from [facility] on 07/13/2015. diphtheria/pertu Left completed GE Result OPID ssis, 4 Deltoid Comment: [place] acel/tetanus adacel adult<sup>1</sup [[id number]]. > Migrated from OBS ; Data migrated from [facility] [employer] on 07/13/2015. influenza virus Right completed GE Result O PID vaccine, 4 Deltoid Comment: [place] inactivated<sup> fluzone high 3</sup> dose [[id number]]. Migrated from OBS ; Data migrated from [facility] on 07/13/2015. Hx influenza completed GE Result Medi nenita vaccine-unspecif 3 Comment: Cam[place] up,Misc ied<sup>4</sup> given. her Migrated from [facility] OBS ; Data OPID [place] gar migrated from Land GE [facility] on 07/13/2015. Hx influenza completed GE Result OPID vaccine-unspecif 3 Comment: [place] ied<sup>2</sup> given. Migrated from OBS ; Data migrated from [facility] [employer] on 07/13/2015. influenza virus Left completed GE Result M edical vaccine, 3 Deltoid Comment: Group,Misc inactivated<sup> fluzone (>3 h er 2</sup> yrs.) [facility] [[id number]]. OPID [place] Migrated from [place] OBS ; Data migrated from [facility] [employer] on 07/13/2015. influenza virus Left completed GE Result O PID vaccine, 3 Deltoid Comment: [place] inactivated<sup> fluzone (>3 4</sup> yrs.) [[id number]]. Migrated from OBS ; Data migrated from [facility] [employer] on 07/13/2015. zoster vaccine Left completed GE Result Me dical live<sup>5</sup> 3 Deltoid Comment: [place] up,Misc zostavax. her Migrated from [facility] OBS VIS: 09 OPID [place] ar - given Land September 18, 2012. ; Data migrated from [facility] [employer] on 07/13/2015. zoster vaccine Left completed GE Result OP ID live<sup>6</sup> 3 Deltoid Comment: [place] zostavax. Migrated from OBS VIS: given September 18, 2012. ; Data migrated from [facility] on 07/13/2015. pneumococcal Right completed GE Result Medi nenita 23-valent 2 Deltoid Comment: Group,Misc vaccine<sup>6</s pneumovax. he r up> Migrated from [facility] OBS VIS: 7 OPID [place] r - [place] given April 17, 2012. ; Data migrated from [employer] on 07/13/2015. pneumococcal Right completed GE Result MH OPID 23-valent 2 Deltoid Comment: [place] vaccine<sup>5</s pneumovax. up> Migrated from OBS VIS: given April 17, 2012. ; Data migrated from [employer] on 07/13/2015. Results No Data Provided for This Section Pathology Reports No Data Provided for This Section Diagnostic Reports Report Value Date Source Chest 2 views DX PROCEDURE INFORMATION: 06/17/2019 [facility] Exam: XR Chest, 2 Views Exam date and time: 06/17/2019 2:53 PM Age: 78 years old Clinical indication: Cough; Additional info: /co ugh TECHNIQUE: Imaging protocol: XR of the chest Views: 2 views. PA and Lateral COMPARISON: CHEST WO CONTRAST CT 07/21/2016 2:06 PM FINDINGS: Lungs: No focal consolidation. Pleural space: No pleural effusion or pneumothor ax. Heart/Mediastinum: The cardiac silhoutte is mild ly enlarged. Bones/joints: No acute abnormalities. IMPRESSION: No acute cardiopulmonary abnormalities. Jer Quinteros MD On 06/17/2019 15:16:25; [id number] Abdomen 2 views DX PROCEDURE INFORMATION: 06/17/2019 [facility] Exam: XR Abdomen, 2 Views Exam date and time: 06/17/2019 2:50 PM Age: 78 years old Clinical indication: Right lower quadrant pain; Additional info: /abd pain TECHNIQUE: Imaging protocol: XR of the abdomen. Frontal sup ine and upright views of the abdomen. Views: 2 Views. AP Supine and Upright COMPARISON: CR ABDOMEN AP DX 07/03/2016 9:21 AM FINDINGS: Supine and upright images. Normal bowel gas pattern. No pneumoperitoneum. Moderate colonic fecal material. No abnormal soft tissue mass or calcification. Spondylosis. IMPRESSION: Moderate colonic fecal material. Murali Rojas MD On 06/17/2019 15:17:09; [id number] Breast Mammo Diag UNI 07/11/2018 MH OPID [place] gar [place] w juanita incl CAD MA UNILATERAL RIGHT DIGITAL DIAGNOSTIC MAMMOGRAM 3D /2D WITH CAD: 07/11/2018 CLINICAL: /R92.8 Other Abnor mal And Inconclusive Findings On Diagnostic Imaging Of Breast. Current study was evaluated with a Busperson d Detection (CAD) system. COMPARISON:Comparison is mad e to exams dated: 07/08/2018 mammogram, 06/28/2017 mammogram, 06/22/2016 mammogram, 06/17/2015 mammogram, 06/15/2014 mammogram, and 02/17/2013 mammogram - [facility]. TECHNIQUE: Digital Breast To mosynthesis was performed and utilized for Interpretation. Current study was also evaluated with a Computer Aided Detection (CAD) system. FINDINGS: There are scattered fibroglandular densities in right breast. Additional views were perfor med to evaluate the areas of mammographic concern in the right breast. The previously described focal asymmetry and nodular density in the posterior right breast do not persi st on spot compression views, consistent with stinson mmation artifact. No significant masses, calci fications, or other findings are seen in the breast. IMPRESSION: NEGATIVE RECOMMENDATION: No suspicious mammographic findings in the right breast. The previously described rig ht breast asymmetries corresponds to summation artifact. There is no mammographic sandra dence of malignancy. A 1 year screening mammogram is recommended. (07/12/2019) This exam was interpreted at [id number] at [facility]. Professional services are pr ovided by the [facility] of Diagnostic Imaging. Brandon Browne M.D. lr/:07/11/2018 09:28:13 Digital Marketing Project Manager(s): Arti Collado, [facility] letter sent: BI-RADS 1/2 Mammogram BI-RADS: 1 Negative Bone Density DXA Dual PROCEDURE: DEXA BONE DENSITY STUDY. 2018 [facility] INDICATION: Osteoporosis. COMPARISONS: 06/23/2015 TECHNIQUE: Lumbar spine and hip bone mineral densities were measured using a HOLOSNSplus Discovery A dual x-ray absorptiometry system. FINDINGS: LUMBAR SPINE: L1-L4 average BMD is 1.168 g/cm2 T Score: 0.2; Z score: 3.0 Total lumbar spine bone mine ral density has increased by +7.0% since baseline study dated 06/23/2015. This represents significant change at the 95% confidence level. LEFT HIP: Femoral neck BMD: 0.752 g/cm2; T Score: -1.4; Z score: 0.3 Total hip BMD: 0.967 g/cm2; T Score: -0.4; Z sco re: 1.1 Total left hip bone mineral density has increased by +2.9% since baseline study dated 06/23/2015. IMPRESSION: 1. Normal bone density of the lumbar spine. 2. Osteopenia of the left femoral neck. 3. Normal bone density of the total left hip. The World Health Organization recently establish ed the following: Osteoporosis occurs at -2.5 SD below peak bone m ass. Osteopenia (low bone mass) occurs at -1.0 SD to -2.5 SD below peak bone mass. Low bone mass is the single most accurate predic tor for fracture risk. (Peak bone mass occurs at 30 years of age in the axial skeleton (spine) and about 22 years of age in the femoral neck.) SL: [id number] Breast Mammo Scrn BHAVESH 07/08/2018 [facility] incl CAD MA BILATERAL DIGITAL SCREENING MAMMOGRAM WITH CAD: 07/08/2018 CLINICAL: Screening/Screening. Current study was evaluated with a Busperson d Detection (CAD) system. COMPARISON:Comparison is mad e to exams dated: 06/28/2017 mammogram, 06/22/2016 mammogram, 06/17/2015 mammogram, 06/15/2014 mammogram, and 02/17/2013 mammogram - [facility]. TECHNIQUE: Mammographic view s were obtained using digital acquisition. Current study was also evaluated with a Computer Aided Detection (CAD) system. FINDINGS: There are scattered fibroglandular densities in both breasts. There are benign calcificati ons in the right breast. There also are post operative findings in the left breast. There is a focal asymmetry in the right breast a t 12 o'clock posterior depth. There also is a nodular dens ity in the right breast posterior depth central to the nipple seen on the mediolateral oblique view only. No other significant masses, calcifications, or other findings are seen in either breast. IMPRESSION: INCOMPLETE: NEEDS ADDITIONAL IMAGING EVALUATION RECOMMENDATION:The focal asy mmetry in the right breast at 12 o'clock posterior depth is indeterminate. Diagnostic mammography with possible ultrasound are recommended. The nodular density in the r ight breast posterior depth central to the nipple seen on the mediolateral oblique view only is indeterminate. Diagnostic mammography with possible ultrasound are recommended. This exam was interpreted at [id number] for [facility]. Orion aguirre/lacie:07/08/2018 10:20:45 Digital Marketing Project Manager(s): Angela Birmingham, [facility] letter sent: BI-RADS 0 Mammogram BI-RADS: 0 Indeterminate Spine lumbar 2 or 3 Procedure: Lumbar Spine Radiographs. 018 [facility] views DX Clinical Indication: Back pain, no known injury. Comparison: None. FINDINGS: The 3 views of the lumbar sp ine show degenerative change most pronounced at L4- L5 and L5-S1 including narrowing of the intervertebral disc spaces, marginal osteophyte formation and facet joint hypertrop hy. No acute displaced fract ure or spondylolisthesis is observed. Vascular calcifications are noted. IMPRESSION: 1. Degenerative change. SL:[id number] Spine cervical 2 or 3 Procedure. Cervical Spine Radiographs. [facility] view DX Clinical Indication: Neck pain, no known injury. Comparison: Radiograph of the cervical spine . FINDINGS: The 3 views of the cervical spine show degenerative change from C3 through C7 including narrowing of the intervertebral disc spaces, marginal osteophyte formation and facet joint hypertrophy. No acute displaced fracture or subluxation is observed. IMPRESSION: 1. Degenerative change. SL:[id number] Breast Mammo Scrn BHAVESH 06/28/2017 [facility] incl CAD MA BILATERAL DIGITAL SCREENING MAMMOGRAM WITH CAD: 06/28/2017 CLINICAL: Screening/Screening. Current study was evaluated with a Busperson d Detection (CAD) system. COMPARISON:Comparison is mad e to exams dated: 06/22/2016 mammogram, 06/17/2015 mammogram, 06/15/2014 mammogram, and 02/17/2013 mammogram - [facility]. TECHNIQUE: Mammographic view s were obtained using digital acquisition. Current study was also evaluated with a Computer Aided Detection (CAD) system. FINDINGS: There are scattered fibroglandular densities in both breasts. There are benign calcifications in the right annamaria ast. No significant masses, calci fications, or other findings are seen in either breast. There has been no significant interval change. IMPRESSION: BENIGN RECOMMENDATION:There is no m ammographic evidence of malignancy. A 1 year screening mammogram is recommended.(06/29/2018) This exam was interpreted at [id number] for [facility]. Orion aguirre/lacie:06/28/2017 14:01:38 Digital Marketing Project Manager(s): Angela Birmingham, [facility] letter sent: BI-RADS 1/2 Mammogram BI-RADS: 2 Benign Sinus paranasal 1 Clinical Indication: - headache; 03/14/2017 [facility] view DX Comparison: None FINDINGS: The 3 views of the sinuses s how that the ethmoid, sphenoid and frontal sinuses are clear without mucoperiosteal thickening or air fluid levels. There is mild mucoperiosteal thickening of the left maxill casandra sinus. There is no evide nce of any air-fluid levels within the maxillary sinuses. There are no osseous abnormalities noted. The nasal septum is midline. The nasopharynx region is grossly unremarkable. The mastoid regions appear unremarkable. If there is further concern, sinus CT may be performed for complete assessment. IMPRESSION: 1. Mild mucoperiosteal thick ening of the left maxillary sinus. Air-fluid levels are identified.. SL: [id number] Chest wo contrast CT CLINICAL HISTORY : abnormal CT of the abd, lower lung ho , [place] 07/21/2016 OPID [place] EXAM : CT chest without contrast 07/21/2016 2:00 PM WASTE HAND COMPARISON : CT abdomen and pelvis with and with out contrast 07/07/2016 TECHNIQUE : Volumetric CT ac quisition was performed through the chest. Images in the axial, coronal, and sagittal plane were presented for interpretation. RADIATION DOSE/ CONTRAST : DLP:478.36 mGy FINDINGS : The left lung apex on axial image 22 there is a 3 mm nodule. In the right middle lobe there is a 5 mm nodule. There is a calcified nodule in the right upper l obe on axial image 52. There is a 3 mm nodule in the right middle lobe on axial image 72. In the right lower lobe on axial image 78 there is a 4 mm nodule. In the right lung base medially on axial image 8 9 there is a 3 mm nodule. In the left lung apex on axi al image 20 there is a 3 mm nodule as well as an adjacent 4 mm nodule on axial image 22. In the left lung base anteriorly on axial image 75 there is a 7 mm nodule. In the lingula on axial image 55 there is a 3 mm nodule. The heart is normal in size with moderate rogers ry artery calcifications. The thoracic aorta and its p rimary branches are normal in course and caliber with moderate vascular calcifications. The main pulmonary artery an d visualized proximal tracheobronchial tree are within normal limits. There are are no pathologica lly enlarged mediastinal, hilar, supraclavicular, or axillary lymph nodes. The upper abdominal structur es are grossly stable compared to the recent abdomen/pelvis CT. There is redemonstration of a low-density lesion in the left hepatic lobe measuring 1.9 cm in diameter. The soft tissue structures of the chest wall are normal. There are multilevel degener ative changes throughout the thoracic spine with disc space narrowing. There are no lytic or sclerotic osseous metastases visualized.. IMPRESSION: 1. Numerous subcentimeter no dules throughout the lungs bilaterally, correlation with the patient's history is recommended. If the patient does not have a known history of primary malignancy, pe rcutaneous biopsy of the dominant left lower lob e nodule may be beneficial.. 2. Moderate coronary artery calcifications. Abdomen/Pelvis w/wo STUDY: CT abdomen and pelvis with and wi thout contrast. 07/07/2016 [facility] [place] IV contrast CT COMPARISON: None. HISTORY: RLQ pain. TECHNIQUE: Contiguous axial images of the abdomen and pelvis were obtained before and after intravenous contrast administration including delayed images. Enteric contrast was given. Sagittal and coronal reformats were performed. DLP: 1685 mGy-cm. Co ntrast dose: 100ml Omnipaque. FINDINGS: Lung bases: Several nodules are seen in the lung bases measuring up to 4 mm (image 1). Osseous structures: Degenera tive changes of the spine. No suspicious osseous lesion. Liver: 2 simple cysts measur ing up to 1.6 cm. 2.0 x 2.0 cm subtle hypodense lesion in the medial segment of left hepatic lobe (series 3, image 24) may represent metastatic lesion. Gallbladder: Contains gallstones. No evidence of acute cholecystitis. Spleen: Normal. Pancreas: Normal. Adrenal glands: Normal. Kidneys: Normal. Gastrointestinal tract: Norm al stomach. Normal small bowel. Appearance of short segment mural thickening of proximal ascending colon (coronal image 60) may be due to under distention. Pathologic thicken ing secondary malignancy can not be excluded. Correlate with colonoscopy. Sigmoid and descending colonic diverticulosis without evidence of acute diverticulitis. Appendix is not seen. Urinary bladder: Normal. Reproductive organs: Uterus has been removed. No adnexal mass. Adenopathy: None. Inflammatory changes: None. Free fluid: None. Vasculature: Moderate atherosclerotic vascular c alcification. IMPRESSION: No acute abnormality in the abdomen or pelvis. Short segment mural thickeni ng of proximal ascending colon may be due to underdistention. Malignancy cannot be excluded. Correlate with colonoscopy. Indeterminate 2.0 cm lesion in the left hepatic lobe. Metastasis cannot be excluded. Nodules in the lung bases. C onsider further evaluation with nonemergent CT chest without contrast. Colonic diverticulosis without diverticulitis. Cholelithiasis without acute cholecystitis. Abdomen AP DX EXAM: Abdomen one view 07/03/2016 9:46 AM WASTE HAND [facility] HISTORY: 75 years Female right upper quadrant abdominal pain COMPARISON: None available. FINDINGS: There is a nonobst ructive bowel gas pattern, with mild colonic stool. Probable vascular calcifications are noted in the pelvis. No evidence of mass effect or organomegaly. There is moderate lo wer lumbar degenerative change. No acute bony ab normalities are seen. IMPRESSION: 1. Nonobstructive bowel gas pattern. Digital Mammo - DIGITAL MAMMO SCREENING [facility] 06/22/2016 [facility] Screening [facility] BILATERAL DIGITAL SCREENING MAMMOGRAM WITH CAD: 06/22/2016 CLINICAL: Screening. Current study was evaluated with a Busperson d Detection (CAD) system. Comparison is made to exams dated: 06/15/2014 mammogram and 06/17/2015 mammogram - [facility]. There are scattered fibroglandular densities in both breasts. There are benign calcifications in the right annamaria ast. No significant masses, calci fications, or other findings are seen in either breast. There has been no significant interval change. IMPRESSION: BENIGN There is no mammographic sandra dence of malignancy. A 1 year screening mammogram is recommended. Apolinar sam/lacie:07/11/2016 13:14:10 Digital Marketing Project Manager: Lanette [place], [facility] This exam was dictated and i nterpreted by [id number] for [facility]. letter sent: Normal exam Mammogram BI-RADS: 2 Benign Spine cervical series Exam: Cervical spine x-ray, 5 views 2015 [facility] Reason for Exam: NECK PAIN Comparison Exam: None Discussion: On lateral view, the cervica l spine is seen from the C1 vertebral body level down through the C7/T1 junction. Vertebral body heights are maintained. No spondylolisthesis. Moderate multilevel degenerativ e disc disease is noted. N o suspicious osteoblastic or osteolytic lesions. On oblique views, there is neural foraminal encroachment within the mid and lower cervical spine. Prevertebral soft tissue is within normal limits. Later al masses of C1 and dens of C2 are not adequately seen on frontal view. Please note that a cervical spine x-ray cannot rule out ligamentous injuries or spinal cord abnormalities. Visualized portions of the lung apices are unremarkable. Impression: 1. Moderate multilevel dege nerative disc disease. On oblique views, there is neural foraminal encroachment within the mid and lower cervical spine. Bone Density DXA Dual - Bone Density DXA [employer] [place] 06/23/19 16 [facility] BONE DENSITY EVALUATION: 06/23/2015 COMPARISON: 02/04/2013 Left femur neck u sing a Hologic unit from [facility] with reported normal fracture risk, BMD of 0.813g/cm2 and T-score of -1.00. 02/04/2013 AP L1-L4 region o f spine using a Hologic unit from [facility] with reported normal fracture risk, BMD of 1.040g/cm2 and T-score of -1.00. FINDINGS: Bone density evaluation was performed 06/23/2015 on the AP L1-L4 region of spine using a Hologic unit. The BMD average for the exam is 1.091 g/cm2. The T- score is -0.50. Since the previous similar exa m of 02/04/2013, there has b een a +0.051 or +4.9% change in the BMD value which represents no significant interval change in bone density. This matches the World Health Organization's criteria for normal bone density and places the patient within normal limits of fracture risk. An additional bone density e valuation was performed 06/23/2015 on the left femur [...] risk for fracture. An additional bone density e valuation was performed 06/23/2015 on the left femur trochanter using a Hologic unit. The BMD average for the exam is 0.940 g/cm2. The T-score is -0.60. This matches the [facility]'s cr iteria for normal bone density and places the patient within normal limits of fracture risk. IMPRESSION: OSTEOPENIA Patient is at medium risk for fracture. This exam was dictated and i nterpreted by [id number] [facility]. Kimo rose/penrad:06/24/2015 15:24:43 Digital Marketing Project Manager: Pham Tinoco, [facility] Digital Mammo - DIGITAL MAMMO SCREENING BHAVESH [facility] 06/17/2015 [facility] Screening Bhavesh [facility] BILATERAL DIGITAL SCREENING MAMMOGRAM WITH CAD: 06/17/2015 CLINICAL: Screening. Current study was evaluated with a Busperson d Detection (CAD) system. Comparison is made to exams dated: 06/15/2014 mammogram and 02/17/2013 mammogram - [facility]. The tissue of both breasts i s heterogeneously dense, which could obscure detection of small masses. No significant masses, calci fications, or other findings are seen in either breast. There has been no significant interval change. IMPRESSION: NEGATIVE There is no mammographic sandra dence of malignancy. A 1 year screening mammogram is recommended. Kimo rose/penrad:06/17/2015 13:47:44 Digital Marketing Project Manager: Pham Tinoco, [facility] This exam was dictated and i nterpreted by [id number] for [facility]. letter sent: Normal exam Mammogram BI-RADS: 1 Negative Consultation Notes No Data Provided for This Section Discharge Summaries No Data Provided for This Section History and Physicals No Data Provided for This Section Vital Signs Vital Sign Value Date Comments Source Height 160.02 cm 10/01/2019 [facility] Weight 74.545 10/01/2019 [facility] BMI Calculated 29.11 10/01/[facility] Systolic (mm Hg) 140 10/01/2019 [facility] Diastolic (mm Hg) 76 10/01/[facility] Heart Rate 70 10/01/2019 [facility] Respitory Rate 17 10/01/2019 [facility] Temperature Oral (F) 97.8 F 10/01/2019 [facility] Systolic (mm Hg) 144 08/14/2019 [facility] Diastolic (mm Hg) 69 08/14/2019 [facility] Heart Rate 65 08/14/2019 [facility] Weight 75 08/14/2019 [facility] Height 160.02 cm 07/22/2019 [facility] Weight 75.455 07/22/2019 [facility] BMI Calculated 29.47 07/22/2019 [facility] Systolic (mm Hg) 152 07/22/2019 [facility] Diastolic (mm Hg) 74 07/22/2019 [facility] Heart Rate 89 07/22/2019 [facility] Temperature Oral (F) 97.6 F 07/22/2019 [facility] Systolic (mm Hg) 132 06/17/2019 [facility] Diastolic (mm Hg) 70 06/17/2019 [facility] Heart Rate 90 06/17/2019 [facility] Respitory Rate 16 06/17/2019 [facility] Height 165.1 cm 06/17/2019 [facility] Weight 74.773 06/17/2019 [facility] BMI Calculated 27.43 06/17/2019 [facility] Height 160.02 cm 05/16/2019 [facility] Weight 74.091 05/16/2019 [facility] BMI Calculated 28.93 05/16/2019 [facility] Systolic (mm Hg) 142 05/16/2019 [facility] Diastolic (mm Hg) 64 05/16/2019 [facility] Heart Rate 71 05/16/2019 [facility] Temperature Oral (F) 97.9 F 05/16/2019 [facility] Height 160.02 cm 04/02/2019 [facility] Systolic (mm Hg) 138 04/02/2019 [facility] Diastolic (mm Hg) 64 04/02/2019 [facility] Heart Rate 66 04/02/2019 [facility] Respitory Rate 17 04/02/2019 [facility] Temperature Oral (F) 98.1 F 04/02/2019 [facility] Weight 74.091 04/02/2019 [facility] BMI Calculated 28.93 04/02/2019 [facility] Systolic (mm Hg) 150 03/27/2019 [facility] Diastolic (mm Hg) 75 03/27/2019 [facility] Heart Rate 82 03/27/2019 [facility] Respitory Rate 20 03/27/2019 [facility] Temperature Oral (F) 98.3 F 03/27/2019 [facility] Height 165.1 cm 03/27/2019 [facility] Weight 75.057 03/27/2019 [facility] BMI Calculated 27.54 03/27/2019 [facility] Systolic (mm Hg) 152 02/27/2019 [facility] Diastolic (mm Hg) 76 02/27/2019 [facility] Heart Rate 82 02/27/2019 [facility] Weight 75.455 02/27/2019 [facility] Systolic (mm Hg) 154 01/01/2019 [facility] Diastolic (mm Hg) 68 01/01/2019 [facility] Temperature Oral (F) 98.0 F 01/01/2019 [facility] Heart Rate 71 01/01/2019 [facility] Weight 76.818 01/01/2019 [facility] BMI Calculated 29.82 11/15/2018 [facility] Weight 76.364 11/15/2018 [facility] Systolic (mm Hg) 156 11/15/2018 [facility] Diastolic (mm Hg) 81 11/15/2018 [facility] Temperature Oral (F) 97.6 F 11/15/2018 [facility] Heart Rate 69 11/15/2018 [facility] Height 160.02 cm 11/15/2018 [facility] BMI Calculated 30.07 09/23/2018 [facility] Weight 77 09/23/2018 [facility] Height 160.02 cm 09/23/2018 [facility] Temperature Oral (F) 97.5 F 09/23/2018 [facility] Heart Rate 70 09/23/2018 [facility] Respitory Rate 17 09/23/2018 [facility] Systolic (mm Hg) 140 09/23/2018 [facility] Diastolic (mm Hg) 70 09/23/2018 [facility] Weight 76.818 09/10/2018 [facility] Temperature Oral (F) 97.6 F 09/10/2018 [facility] Respitory Rate 16 09/10/2018 [facility] Heart Rate 88 09/10/2018 [facility] Systolic (mm Hg) 130 09/10/2018 [facility] Diastolic (mm Hg) 69 09/10/2018 [facility] Height 160.02 cm 08/01/2018 [facility] Weight 77.045 08/01/2018 [facility] BMI Calculated 30.09 08/01/2018 [facility] Respitory Rate 18 08/01/2018 [facility] Heart Rate 77 08/01/2018 [facility] Systolic (mm Hg) 136 08/01/2018 [facility] Diastolic (mm Hg) 73 08/01/2018 [facility] Systolic (mm Hg) 160 07/09/2018 [facility] Diastolic (mm Hg) 74 07/09/2018 [facility] Heart Rate 81 07/09/2018 [facility] Temperature Oral (F) 98.4 F 07/09/2018 [facility] Weight 75 07/09/2018 [facility] Systolic (mm Hg) 153 07/08/2018 [facility] Diastolic (mm Hg) 75 07/08/2018 [facility] Heart Rate 91 07/08/2018 [facility] Height 165.1 cm 07/08/2018 [facility] Weight 75 07/08/2018 [facility] BMI Calculated 27.51 07/08/2018 [facility] Weight 77.273 05/16/2018 [facility] Respitory Rate 15 05/16/2018 [facility] Temperature Oral (F) 98.2 F 05/16/2018 [facility] Heart Rate 60 05/16/2018 [facility] Systolic (mm Hg) 132 05/16/2018 [facility] Diastolic (mm Hg) 60 05/16/2018 [facility] BMI Calculated 30.27 03/28/2018 [facility] Weight 77.5 03/28/2018 [facility] Height 160.02 cm 03/28/2018 [facility] Heart Rate 99 03/28/2018 [facility] Temperature Oral (F) 98.2 F 03/28/2018 [facility] Systolic (mm Hg) 132 03/28/2018 [facility] Diastolic (mm Hg) 66 03/28/2018 [facility] Weight 76.818 03/25/2018 [facility] BMI Calculated 30 03/25/2018 [facility] Height 160.02 cm 03/25/2018 [facility] Temperature Oral (F) 97.8 F 03/25/2018 [facility] Heart Rate 68 03/25/2018 [facility] Respitory Rate 17 03/25/2018 [facility] Systolic (mm Hg) 120 03/25/2018 [facility] Diastolic (mm Hg) 80 03/25/2018 [facility] BMI Calculated 28.52 03/08/2018 [facility] Weight 77.727 03/08/2018 [facility] Heart Rate 68 03/08/2018 [facility] Temperature Oral (F) 97.8 F 03/08/2018 [facility] Systolic (mm Hg) 139 03/08/2018 [facility] Diastolic (mm Hg) 74 03/08/2018 [facility] Height 165.1 cm 03/08/2018 [facility] Weight 77.273 03/05/2018 [facility] Systolic (mm Hg) 118 03/05/2018 [facility] Diastolic (mm Hg) 50 03/05/2018 [facility] Heart Rate 60 03/05/2018 [facility] Temperature Oral (F) 98.3 F 03/05/2018 [facility] Respitory Rate 14 03/05/2018 [facility] Height 161.29 cm 02/13/2018 [facility] Temperature Oral (F) 98.1 F 02/13/2018 [facility] Heart Rate 60 02/13/2018 [facility] Respitory Rate 14 02/13/2018 [facility] Systolic (mm Hg) 134 02/13/2018 [facility] Diastolic (mm Hg) 60 02/13/2018 [facility] Weight 78.636 02/13/2018 [facility] BMI Calculated 30.23 02/13/2018 [facility] Weight 76.534 10/31/2017 [facility] Height 165.1 cm 10/31/2017 [facility] BMI Calculated 28.08 10[facility]31/2017 [facility] Heart Rate 86 10/31/2017 [facility] Temperature Oral (F) 98.8 F 10/31/2017 [facility] Systolic (mm Hg) 143 10/31/2017 [facility] [place] [facility] Diastolic (mm Hg) 76 10/31/2017 [facility] BMI Calculated 29.41 09/19/2017 [facility] Weight 77.727 09/19/2017 [facility] Height 162.56 cm 09/19/2017 [facility] Systolic (mm Hg) 130 09/19/2017 [facility] Diastolic (mm Hg) 72 09/19/2017 [facility] Respitory Rate 17 09/19/2017 [facility] Heart Rate 80 09/19/2017 [facility] Temperature Oral (F) 98.2 F 09/19/2017 [facility] Weight 76.818 08/28/2017 [facility] Heart Rate 79 08/28/2017 [facility] Systolic (mm Hg) 129 08/28/2017 [facility] Diastolic (mm Hg) 68 08/28/2017 [facility] Systolic (mm Hg) 129 08/28/2017 [facility] Diastolic (mm Hg) 68 08/28/2017 [facility] Heart Rate 79 08/28/2017 [facility] Weight 77.045 08/28/2017 [facility] Weight 79.091 08/03/2017 [facility] Temperature Oral (F) 97.9 F 08/03/2017 [facility] Systolic (mm Hg) 148 08/03/2017 [facility] Diastolic (mm Hg) 79 08/03/2017 [facility] Heart Rate 90 08/03/2017 [facility] Temperature Oral (F) 97.4 F 07/25/2017 [facility] Systolic (mm Hg) 158 07/25/2017 [facility] Diastolic (mm Hg) 81 07/25/2017 [facility] Heart Rate 81 07/25/2017 [facility] Weight 78.807 07/25/2017 [facility] Height 165.1 cm 06/28/2017 [facility] Weight 78.182 06/28/2017 [facility] BMI Calculated 28.68 06/28/2017 [facility] Heart Rate 84 06/28/2017 [facility] Systolic (mm Hg) 146 06/28/2017 [facility] Diastolic (mm Hg) 72 06/28/2017 [facility] Temperature Oral (F) 97.8 F 06/14/2017 [facility] Weight 78.636 06/14/2017 [facility] Systolic (mm Hg) 158 06/14/2017 [facility] Diastolic (mm Hg) 73 06/14/2017 [facility] Heart Rate 99 06/14/2017 [facility] Weight 79.091 04/27/2017 [facility] Height 163.83 cm 04/27/2017 [facility] BMI Calculated 29.47 04/27/2017 [facility] Systolic (mm Hg) 140 04/27/2017 [facility] Diastolic (mm Hg) 62 04/27/2017 [facility] Temperature Oral (F) 98.5 F 04/27/2017 [facility] Heart Rate 68 04/27/2017 [facility] Respitory Rate 15 04/27/2017 [facility] Encounters Location Location Encounter Encounter Reason Attending ADM [place] Stat Source Details Type Number For Provider Date Date Visit Outpatient [id number] Leah [facility]ELTON [facility]17 [facility] [place] [facility] [id number] SHAWNA 04/21 [facility] [place] [facility] [id number] MAMMO VISIT 06/17 [facility] [place] [facility] [id number] BRENDON 06/17 [facility] [place] [facility] [id number] MAMMO VISIT 06/17 [facility] [place] [facility] [id number] DEXA VISIT 06/[address] [facility] [place] [facility] [id number] SHAWNA 07/15 [facility] [place] [facility] [id number] SHAWNA 08/02 [facility] [place] [facility] [id number] [facility] [place] [facility] [id number] X[facility]ISIT 08[facility] [place] [facility] [id number] L LINH 09/15 [facility] [id number] SHAWNA 02/06 [facility] [id number] JORDANA 02/24 [facility] [id number] L LINH 03/17 [facility] [id number] SHAWNA 04/21 [facility] [id number] SHAWNA 04/28 [facility] [id number] YAAKOV 05/18 [facility] [place] [facility] [id number] [facility] VISIT [facility]22 [facility] [place] [facility] [id number] ABDIFATAH 07/03 [facility] [place] [facility] [id number] XRAY VISIT 07/03 [facility] Outpt Diag [id number] Abdifatah 07/07 07/08 [facility] [id number] ABDIFATAH 07/10 [facility] [place] [facility] [id number] YAAKOV 07/10 [facility] Outpt Diag [id number] Abdifatah 07/21 07/22 [facility] Outpatient [id number] ABDIFATAH 07/24 [facility] [id number] JESUS 07/25 [facility] [id number] YAAKOV 08/03 [facility] ALEXIS /2017 [place] [facility] [id number] ABDIFATAH 08/07 [facility] [id number] L LINH 09/15 [facility] [place] [facility] [id number] JESUS 11/28 [facility] [place] [facility] [id number] JESUS 12/19 [facility] [place] [facility] [id number] ABDIFATAH 01/24 [facility] 6 [facility] [id number] ABDIFATAH 02/05 [facility] 2 [facility] [place] [facility] [id number] JORDANA 03/14 [facility] [place] [facility] [id number] XRAY VISIT 03/14 [facility] [place] [facility] [id number] XRAY VISIT 03/14 [facility] [id number] Leah NICHOLSONE 03/21 [facility] [id number] SHAWNA 04/27 [facility] [id number] Shawna 04/27 04/28 Medicine 8 [facility] Outpatient [id number] JORDANA 06/14 Active [facility] 2 [facility] Family Outpatient [id number] Jordana 06/14 06/15 Medicine 2 [facility] Family Phone [id number] 06/14 06/16 Medicine Message [facility] Phone [id number] 06/21 06/23 Cardiology Message Medic [facility] Outpatient [id number] BRENDON 06/28 [facility] [place] [facility] [id number] MAMMO VISIT 06/28 [facility] [id number] MAMMO VISIT 06/28 [facility] [employer] Outpatient [id number] Brendon 06/28 06/29 [facility] Ambulatory [id number] NURSE VISIT 06/28 06/28 Radiology Pre-Reg [facility] Family Outpatient [id number] NURSE VISIT 06/28 06/29 Medicine Medical [facility] Outpatient [id number] JODY 07/25 [facility] BETH /2018 [place] [facility] [id number] XRAY VISIT 07/[address] [facility] [place] [facility] [id number] XRAY VISIT 07/[address] [facility] [id number] Jody 07/25 07/26 Medicine 6 [facility] Ambulatory [id number] NURSE VISIT 07/25 07/25 Radiology Pre-Reg [facility] Family Outpatient [id number] NURSE VISIT 07/25 07/26 Medicine Medical [facility] Outside [id number] 08/01 08/03 Cardiology Medical Medic [facility] Outpatient [id number] 08/03 [facility] Family Outpatient [id number] Jody 08/03 08/04 Medicine 9 [facility] Outpatient [id number] JESUS 08/28 [facility] [id number] JODY 08/28 [facility] Outpatient [id number] Jesus 08/28 08/29 M H Pulmonology 5 Medic al [facility] Family Outpatient [id number] Jody 08/28 08/29 Medicine 0 [facility] Outpatient [id number] L LINH 09/19 [facility] [id number] L Linh 09/19 09/20 M H Cardiology 0 [facility] Family Phone [id number] 09/24 09/26 MH Medicine Message Medical [facility] Phone [id number] 09/28 09/30 [facility]scienc [facility] [place] [facility] [id number] REMY 10/31 [facility] Out[facility] [id number] Jody 05/23 05/24 [facility] 3 Beth /2018 /2018 Neur o e [facility] [id number] SHAWNA 02/13 Active [facility] 4 [facility] Family Outpatient [id number] Shawna 02/13 02/14 Medicine 4 [facility] Outpatient [id number] SHAWNA 03/05 [facility] [id number] Shawna 03/05 03/06 Medicine 5 [facility] Outpatient [id number] SREEKRISHNA 03/08 [facility] [id number] Sreekrishna 03/08 03/09 Otolaryngol 6 Med ical ogy [facility] Outpatient [id number] L LINH 03/21 Active [facility] 2 [facility] Ambulatory [id number] L Linh 03/21 03/21 M H Cardiology Pre-Reg 2 Medic al [facility] Outpatient [id number] L LINH 03/25 [facility] [id number] L Linh 03/25 03/26 M H Cardiology 7 [facility] Outpatient [id number] JODY 03/28 [facility] [id number] Jody 03/28 03/29 Medicine 9 [facility] Outpatient [id number] SHAWNA 05/09 Active [facility] 1 [facility] Family Ambulatory [id number] Shawna 05/09 05/09 Medicine Pre-Reg 1 [facility] Outpatient [id number] SHAWNA 05/16 [facility] [id number] Shawna 05/16 05/17 MH Medicine 0 [facility] Outpatient [id number] MAMMO VISIT 07/08 [facility] [place] Out[facility] [id number] BRENDON 07/08 Active [facility] 3 [facility] Outpatient [id number] BRENDON 07/08 [facility] [id number] NURSE VISIT 07/08 07/09 Medicine [facility] Ambulatory [id number] NURSE VISIT 07/08 07/08 Radiology Pre-Reg Medica [facility] LOGISTICS SERVICE REPRESENTATIVE Outpatient [id number] Brendon 07/08 07/09 [facility] Outpatient [id number] DOMENIC GALARZA 07/09 Act [facility] Outpatient [id number] DEXA VISIT 07/[address] [facility] [place] Outpatient [id number] DEXA VISIT 07/[address] [facility] [place] Outpatient [id number] DEXA VISIT 07/[address] [facility] [place] Outpatient [id number] DEXA VISIT 07/[address] [facility] [place] Outpatient [id number] DEXA VISIT 07/[address] [facility] Family Outpatient [id number] 07/09 07/10 Medicine [facility] Family Outpatient [id number] NURSE VISIT 07/09 07/10 Medicine [facility] Ambulatory [id number] NURSE VISIT 07/09 07/09 Radiology Pre-Reg [facility] Ambulatory [id number] NURSE VISIT 07/09 07/09 Radiology Pre-Reg [facility] Ambulatory [id number] NURSE VISIT 07/09 07/09 Radiology Pre-Reg [facility] Ambulatory [id number] NURSE VISIT 07/09 07/09 Radiology Pre-Reg [facility] Outpt Diag [id number] Brendon 07/11 07/12 M H [facility]ID Outpatient Services 2 [facility] [id number] [place] 08/01 [facility] 2 [place] [facility] Family Outpatient [id number] [place] 08/01 08/02 Medicine 2 [facility] Medic [facility] Outpatient [id number] Jesus 09/10 Active [facility] 1 Dariel [facility] Outpatient [id number] Jesus 09/11 03/ M H Pulmonology 1 [facility] Outpatient [id number] L Linh 09/23 Active [facility] 8 [place] [facility] Outpatient [id number] L Linh 09/23 09/24 M H Cardiology 8 [facility] Outpatient [id number] LAB VISIT 11/08 [facility] [place] Outpatient [id number] Shawna 11/15 Active [facility] 3 [place] Outpatient [id number] SHAWNA 11/15 [facility] [id number] Shawna 11/15 11/16 Medicine 3 [facility] Family Ambulatory [id number] Shawna 11/15 11/15 Medicine Pre-Reg 1 [facility] Outpatient [id number] 01/01 [facility] [id number] 01/01 01/02 Medicine [facility] Outpatient [id number] Jody 02/27 [facility] [id number] Jody 02/27 02/28 MH Medicine 8 [facility] Outpatient [id number] Jordana 03/17 [facility] [id number] Jordana 03/17 03/17 Medicine Pre-Reg 9 [facility] Outpatient [id number] L Linh 03/24 Active [facility] 4 [place] [facility] Ambulatory [id number] L Linh 03/24 03/24 M H Cardiology Pre-Reg 4 [facility] Outpatient [id number] José Miguel 03/27 Active [facility] 2 [facility] Family Outpatient [id number] José Miguel 03/27 03/28 Medicine 2 [facility] Outpatient [id number] L Linh 03/28 Active [facility] 0 [facility] Ambulatory [id number] L Linh 03/28 03/28 M H Cardiology Pre-Reg 0 Medic [facility] Outpatient [id number] L Linh 04/02 Active [facility] 1 [facility] Outpatient [id number] L Linh 04/02 04/03 M H Cardiology 1 [facility] Family Phone [id number] 04/09 04/11 Medicine Message Medical [facility] Outpatient [id number] 05/09 [facility] 6 -VISIT, Jodi nn Outpatient [id number] Jody 05/16 Active M [facility] 4 Beth [facility] Outpatient [id number] Jody 05/16 Active [facility] 5 [place] [facility] Family Ambulatory [id number] Jody 05/16 05/16 Medicine Pre-Reg 5 [facility] Family Outpatient [id number] Jody 05/16 05/17 Medicine 4 [facility] Outpatient [id number] José Miguel 06/17 Active [facility] 7 [place] Outpatient [id number] NURSE VISIT 06/17 [facility] Family Outpatient [id number] José Miguel 06/17 06/18 Medicine 7 [facility] Outpatient [id number] NURSE VISIT 06/17 06/18 Radiology [facility] Outpatient [id number] BRENDON 07/10 Active [facility] 4 SANG [place] [facility] Ambulatory [id number] NURSE VISIT 07/10 07/10 MH Radiology Pre-Reg [facility] performance specialist Ambulatory [id number] Brendon 07/10 07/10 [facility] Pre-Reg 5 [place] /2019 Medica l Group Outpatient [id number] Jody 07/22 Active [facility] 9 [facility] [place] [facility] Family Outpatient [id number] Jody 07/22 07/23 Medicine 9 Beth /2019 [facility] Outpatient [id number] 08/[address] [facility] 6 -VISIT, LAB Jodi nn Outpatient [id number] Jody 08/13 Active M [facility] 5 [facility] [place] [facility] Family Outpatient [id number] Jody 08/13 08/14 Medicine 5 [facility] Family Phone [id number] 08/19 08/21 Medicine Message [facility] Phone [id number] 09/28 09/30 Cardiology Message [facility] Outpatient [id number] L Linh 09/30 Active [facility] 3 Mazel Dariel [facility] Outpatient [id number] L Linh 09/30 10/01 M H Cardiology 3 Mazel [facility] Outpatient [id number] 11/[address] [facility] 1 -VISIT, LAB 2020 Jodi nn Outpatient [id number] Jody 11/24 Active M [facility] 0 Beth [facility] Family Ambulatory [id number] Jody 11/24 11/24 Medicine Pre-Reg 0 Beth [facility] Procedures Procedure Code Date Perfomer Comments Source Mammogram [id number] 07/08/2018 Medical Group, [facility] Cataract surgery [id number] 06/24/2018 Medic al Group, OPID [facility] Removal impacted [id number] 03/08/2018 Medic al cerumen requiring Group instrumentation, unilateral Colonoscopy<sup>1< [id number] 07/19/2016 [facility] /sup> Dr. Amaris Ashton,Karmen recommended 5 r Neuro,MH year followup OPID [facility] Procedure on [id number] 10/09/2013 left wrist vein MH Medi nenita wrist<sup>2</sup> repair 10/2013 Grou p,Mische r Neuro, OPID [facility] Procedure on [id number] 10/09/2013 left wrist vein MH [facility] wrist<sup>1</sup> repair 10/2013 [place] Colonoscopy [id number] 12/18/2012 MH OPID [facility] CEIOL - Cataract [id number] 02/13/2011 right eye. Medic al extraction and Group,Misc he insertion of r Neuro,MH intraocular OPID [place] lens<sup>3</sup> [place] CEIOL - Cataract [id number] 02/13/2011 right eye. MH OPID extraction and [facility] insertion of intraocular lens<sup>2</sup> Arthroscopy of [id number] 06/11/2010 Right knee Replacemen t 04/16/2011 MH Medical knee<sup>4</sup> Total joint replace ment. Group,Mische Rotating Platform Knee, F ixed Bearing Knee. r Neuro, OPID [facility] Arthroscopy of [id number] 06/11/2010 Right knee Replacemen t 04/16/2011 MH OPID knee<sup>3</sup> Total joint replace ment. [facility] Rotating Platform Knee, F ixed Bearing Knee. [facility] BSO - Total [id number] 06/11/2000 Benign Medica l abdominal pathology. Group,Mische hysterectomy and r Neuro, bilateral [facility]ID [place] salpingo-oophorect [place]<sup>5</sup> [facility] BSO - Total [id number] 06/11/2000 Benign MH OPID abdominal pathology. [facility] hysterectomy and bilateral salpingo-oophorect [place]<sup>4</sup> Bunionectomy<sup>6 [id number] and bone spurs Medical </sup> Group,Mische r Neuro, OPID [facility] Pneumococcal [id number] 2015 with pcp Medica l vaccination<sup>7< Group, Mische /sup> r Neuro, OPID [facility] Rotator cuff [id number] left Medical repair<sup>8</sup> Group, Mische r Neuro, OP[facility] Simple dental [id number] 03/2019 Medical extraction<sup>9</ Group sup> Rotator cuff [id number] left Medical repair<sup>7</sup> Group Bunionectomy<sup>5 [id number] and bone spurs MH OPID </sup> [facility] Rotator cuff [id number] left OPID repair<sup>6</sup> [facility] Assessment and Plan Assessment and Plan Date Source Extracted from:Title: Neurosurgery Spine Clinic Note 018 [facility] Author: Melissa Iniguez COOKER SODA Date: 10/31/17 Ms Boudreaux is a 77 year old fema le who presents to clinic for initial evaluation [...] Tylenol w ith minimal relief. During last she was having intermittent sensations of spider webs on top ofher left arm. She had a cervical spine MRI that shows mild to moderate cervical spinal stenosis C4-C5, C5-C6, and borderline C6-C7. She is currently doing well with no sig ns of myelopathy. Her stiffness is likely chronic and will improve with neck ROMexercises. Impression: - Cervical stenosis - Torticollis Plan: - Followup with Dr Rita RODRIGUES Patient seen, examined, discussed in d etail, and diagnostic tests reviewed with Dr. Remy Salinas and in agreement with above plan. Melissa Iniguez MSN, MAKE UP OPERATOR HELPER, ACNP- Neurosurgery Acute Care Nurse Practitioner Plan of Care No Data Provided for This Section Social History Social History Date Source Social History TypeResponse 08/01/2018 [facility] [place] [facility] Alcohol Never Employment/School Work/School description: Retired.. Exercise Exercise type: Walking, Stationary Bike.1 Sexual Self Breast Exam Yes. Substance Abuse Use: None. Smoking Status Never smoker; Previous treatment: None; Ready to change: No; Concerns about tobacco use in household: No; Exposure to Tobacco Smoke None; Cigarette Smoking Last 365 Days No; Reg Smoking Cessation Counseling No2 entered on: 10/01/19 1about 15/30 minutes.2non-smoker Social History TypeResponse 08/01/2018 [place] Alcohol Never Employment/School Work/School description: Retired.. Exercise [...] 15/30 minutes.2non-smoker Social History TypeResponse 06/28/2017 [facility] Substance Abuse Use: None. Sexual Self Breast [...]
--- OUTSIDE RECORDS SUMMARY | 2020-04-29 10:43 | XMS REPORT | Continuity of Care Document ---
:1940 Author Organization [facility] t Address [address] [place] [address] Care Team Providers Name Role Phone Sujit Barrerablancaedi Primary Care Physician Moreno HURD Attending Clinician Ishan WRIGHT, George Attending Clinician LOUISE VICK Attending Clinician Unavailable Moreno HURD, Louise Attending Clinician Lay Hooks Attending Clinician Cordell Sullivan MD Attending Clinician Meliza Campos Attending Clinician Trent Attending Clinician Mike Matthews Attending Clinician VISIT, [facility] MAMMO Attending Clinician Unavailable [facility] Attending Clinician Unavailable Darci Matos Attending Clinician Espinoza Attending Clinician Kailey Rosario Attending Clinician Joseph Thrasher Attending Clinician Mani Mathur Attending Clinician VISIT, [facility] DEXA Attending Clinician Unavailable Mahesh Willis Attending Clinician Hira Leiva Attending Clinician LOUISE VICK Admitting Clinician Unavailable Payers Payer Name Policy Type Policy Effective Date Expiration Date Sour ce Number HUMANA - MEDICARE [id number] [address] [facility] MGD CAREHUMANA 00:00:00 - Medical MEDICARE Center [id number]-PresentMaps Contracted HUMANA - MGD [id number] [address] [facility] CAREHUMANA HMO 00:00:00 - Medical [id number] Center 019-PresentHMO/PO S Problems Condition Condition Condition Status Onset Resolution Last Treating Co mments Source Name Details Category Date Date Treatment Clinician Date 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 Medical Group,[facility] her Neuro, [facility] [place] Edema Problem Active 2019-11-27 Memor ia (finding) 01-21 21:25:13 l Edema 00:00: Dariel (finding) 00 Active 01/21/2013 Problem 11/27/2019 Data migrated from [employer] on 11/07/14. Medical Group,[facility] her Neuro, [facility] [place] Hypertensi Problem Active 2017-06-18 M emoria ve episode 01-21 03:07:06 l (disorder) 00:00: Berhane ryan Hypertensi 00 ve episode (disorder) Active 01/21/2013 Problem 06/18/2017 Data migrated from [employer] on 11/07/14. Medical Group, [facility] [place] Hyperlipid Problem Active 2016-07-24 M emoria emia 01-21 02:33:04 l (disorder) 00:00: Berhane ryan Hyperlipid 00 emia (disorder) Active 01/21/2013 Problem 07/24/2016 Data migrated from [employer] on 12/16/14.Ruslan a migrated from [employer] on 11/07/14. [facility] [place] Diverticul Problem Active 2019-11-27 M emoria ar disease 01-02 21:25:13 l of colon 00:00: Dariel (disorder) Diverticul 00 ar disease of colon (disorder) Active 01/02/2013 Problem 11/27/2019 Data migrated from [employer] on 11/07/14. Medical Group,[facility] her Neuro, [facility] [place] Internal Problem Active 2019-11-27 Mem oria hemorrhoid 01-02 21:25:13 l s Internal 00:00: Berhane ryan (disorder) hemorrhoid 00 s (disorder) Active 01/02/2013 Problem 11/27/2019 Data migrated from [employer] on 11/07/14. Medical Group,[facility] her Neuro, [facility] [place] Osteoarthr Problem Active 2011-062019-11-27 M emoria itis 08-08 21:25:13 l (disorder) 00:00: Berhane ryan Osteoarthr 00 itis (disorder) Active 06/07/2012 Problem 11/27/2019 Data migrated from [employer] on 11/07/14. Medical Group,[facility] her Neuro,[facility] [place] Bleeding Problem Active 2019-11-27 Mem oria from nose 21:25:13 l (finding) Bleeding Her hawk from nose (finding) Active Problem 11/27/2019 [facility], [facility] [place] Cervical Problem Active 2019-11-27 Mem oria spondylosi 21:25:13 l s Cervical Berhane n (disorder) spondylosi s (disorder) Active Problem 11/27/2019 Medical Group,[facility] her Neuro,[facility] [place] Gallbladde Problem Active 2019-11-27 M emoria r calculus 21:25:13 l (disorder) Berhane n Gallbladde r calculus (disorder) Active Problem 11/27/2019 Medical Group,[facility] her Neuro,[facility] [place] Degenerati Problem Active 2019-11-27 M emoria on of 21:25:13 l cervical Dariel interverte Degenerati bral disc on of (disorder) cervical interverte bral disc (disorder) Active Problem 11/27/2019 [facility] her Neuro, [facility] [place] Drug Problem Active 2019-11-27 Memor ia therapy 21:25:13 l finding Drug Goodman (finding) therapy finding (finding) Active Problem 11/27/2019 Medical Group,[facility] her Neuro, [facility] [place] 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 21:25:13 l (disorder) Berhane n Dystrophy of vulva (disorder) Active Problem 11/27/2019 [facility] her Neuro, [facility] [place] Eczema Problem Active 2019-11-27 Memor ia (disorder) 21:25:13 l Eczema Dariel (disorder) Active Problem 11/27/2019 [facility], [facility] [place] Finding of Problem Active 2019-11-27 M emoria body mass 21:25:13 l index Finding Dariel (finding) of body mass index (finding) Active Problem 11/27/2019 [facility] her Neuro,[facility] [place] 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 21:25:13 l ia Goodman (finding) Hypergamma globulinem ia (finding) Active Problem 11/27/2019 [facility] her Neuro,[facility] [place] Hyperglyce Problem Active 2019-11-27 M emoria raza 21:25:13 l (disorder) Berhane n Hyperglyce raza (disorder) Active Problem 11/27/2019 Medical Group, [facility] [place] Lesion of Problem Active 2019-11-27 Me moria liver 21:25:13 l (finding) Lesion Jodi nn of liver (finding) Active Problem 11/27/2019 Medical Group,[facility] her [facility] [place] Menopause Problem Active 2019-11-27 Me moria present 21:25:13 l (finding) Dariel Menopause present (finding) Active Problem 11/27/2019 Medical Group,[facility] her [facility], [facility] [place] Mixed Problem Active 2019-11-27 Memor ia hyperlipid 21:25:13 l emia Mixed Goodman (disorder) hyperlipid emia (disorder) Active Problem 11/27/2019 [facility] her [facility], [facility] [place] Multiple Problem Active 2019-11-27 Mem oria nodules of 21:25:13 l lung Multiple Berhane n (finding) nodules of lung (finding) Active Problem 11/27/2019 Medical Group,[facility] her [facility], [facility] [place] Neck pain Problem Active 2019-11-27 Me moria (finding) 21:25:13 l Neck Dariel pain (finding) Active Problem 11/27/2019 [facility] her [facility], [facility] [place] Osteoporos Problem Active 2019-11-27 M emoria is 21:25:13 l (disorder) Berhane n Osteoporos is (disorder) Active Problem 11/27/2019 Medical Group,[facility], [facility] [place] Atrophic Problem Active 2019-11-27 Mem oria vaginitis 21:25:13 l (disorder) Atrophic He rmann vaginitis (disorder) Active Problem 11/27/2019 Medical Group,[facility], [facility] [place] Blood Problem Active 2019-11-27 Memor ia pressure 21:25:13 l alteration Blood Jodi nn (finding) pressure alteration (finding) Active Problem 11/27/2019 Medical Group Osteopenia Problem Active 2017-06-18 M emoria (disorder) 03:07:06 l Dariel Osteopenia (disorder) Active Problem 06/18/2017 Medical Group, [facility] [place] Body mass Problem Active 2016-07-24 Me moria index 02:33:04 l index Body Dariel 25-29 - mass index overweight index (finding) 25-29 - overweight (finding) Active Problem 07/24/2016 [facility] [place] Right Problem Active 2016-07-10 Memor ia lower 03:43:11 l quadrant Right Goodman pain lower (finding) quadrant pain (finding) Active Problem 07/10/2016 [facility] [place] Hypertensi Problem Active 2019-11-27 M emoria ve 21:25:13 l disorder, Dariel systemic Hypertensi arterial ve (disorder) disorder, systemic arterial (disorder) Active Problem 11/27/2019 Medical Group Other Problem 2019-01-29 2019-01-29 M emoria abnormal 2-06 11:41:30 11:41:30 l and Other 06:20: Dariel inconclusi abnormal 36 ve and findings inconclusi on ve diagnostic findings imaging of on breast diagnostic imaging of breast 07/17/2018 01/29/2019 [facility] [place] Asymptomat Problem 2018-2019-01-26 2019-01-26 Memoria ic 07-08 12:07:51 12:07:51 l menopausal 16:48: Berhane n state Asymptomat 00 ic menopausal state 07/08/2018 01/26/2019 Medical Group Postmenopa Problem 2018-2019-01-26 2019-01-26 Memoria usal 07-08 12:07:51 12:07:51 l atrophic 16:48: Dariel vaginitis Postmenopa 00 usal atrophic vaginitis 07/08/2018 01/26/2019 Medical Group Leukoplaki Problem 2018-2019-01-26 2019-01-26 Memoria a of vulva 07-08 12:07:51 12:07:51 l 16:48: Dariel Leukoplaki 00 a of vulva 07/08/2018 01/26/2019 Medical Group Age-relate Problem 2018-2019-01-26 2019-01-26 Memoria d 07-08 12:07:51 12:07:51 l osteoporos 16:48: Berhane n is without Age-relate 00 current d pathologic osteoporos al is without fracture current pathologic al fracture 9 01/26/2019 Medical Group Allergies, Adverse Reactions, Alerts Allergy Allergy Status Severity Reaction(s) Onset Inactive Treating Comm ents Source Name Type Date Date Clinician Shantell Propensi Active Hives [facility] a [facility] - adverse [facility]: Medical reaction 00 Center s penicill penicill Active Memori a ins<sup> ins<sup> l 1</sup> 1</sup> Dariel dicyclom dicyclom Active Memori a ine<sup> ine<sup> l 1</sup> 1</sup> Dariel penicill penicill Active Memori a ins<sup> ins<sup> l 2</sup> 2</sup> Dariel Social History Social Habit Start Date Stop Date Quantity Comments Source History [facility] - Alcohol Std Drinks Medica l Center History [facility] Binge Medical Carina ter Sex Assigned At [facility] Tobacco use and 2020-01-14 2020-01-[address] [facility] - exposure 00:00:00 00:00:00 [facility] Alcohol intake 2020-01-14 2020-01-14 [facility]00 non-drinker of Medical Ce nter alcohol (finding) History [facility] 2020-01-07 2020-01-[address] [facility] - Alcohol Frequency 00:00:00 00:00:00 [facility] Social History 2017-06-28 2017-06-28 [facility] 15:32:50 15:32:50 Smoking Status Start Date Stop Date Source [facility] sm[facility] edical [place] Medications Ordered Filled Start Stop Current Ordering Indication Dosage Frequency Signature Comments Components Source Medication Medication Date Date Medication? Clinician (SIG) Name Name aspirin 325 2020- No 325mg QD Take [address] [facility] tablet 01-15 tablet [facility] - 00:00: 23:59 (325 mg Medical 00 :00 total) by Center mouth daily for 30 days. ibuprofen 2019- No 600mg Q.25D Take [address] (ADVIL,MOTR 01-15 tablet [facility] - IN) 600 MG 00:00: 23:59 (600 mg Med ical tablet 00 :00 total) by Center mouth 4 (four) times daily for 14 days. atorvastati 2020-0 Yes 20mg QD Take [address] n (LIPITOR) 8-06 by mouth Luke s - 20 MG 10:54: daily. Medical tablet 21 [place] psyllium 2020-0 Yes 1{packe Take [address] (METAMUCIL) 8-06 t} packet by Norbert es - powder 10:54: mouth as Medical 21 needed. [place] cholecalcif 2020-0 Yes QD Take by [facility] geovanna, 8-06 mouth [facility] - vitamin D3, 10:54: daily. Medi elmira 50 mcg 21 Center (2,000 unit) Cap calcium 2020-0 Yes 200mg QD Take 200 [facility] carbonate 8-06 mg by [facility] - (OS-ELMIRA) 10:54: mouth Medical 600 mg 21 daily. [place] calcium (1,500 mg) Tab aspirin 81 2020-0 2020- No 81mg QD Take [address] MG EC 8 08-06 by mouth [facility] - tablet 09:26: 00:00 daily. Medical 47 :00 [place] levocetiriz 2020-[address] ine (XYZAL) 7-06 [facility] - 5 MG tablet 00:00: Medica l 00 [place] bimatoprost 2020-0 Yes INSTILL [address] (LUMIGAN) 6-11 DROP INTO [facility] - 0.01 % Drop 00:00: BOTH EYES M edical ophthalmic [address] solution triamcinolo 2020-[address] [facility] ne 6-09 [facility] - (KENALOG) 00:00: Medical 0.1 % 00 [place] topical cream amLODIPine 2020-0 Yes TAKE 1 [facility] (NORVASC) 5 4-28 TABLET BY Norbert es - MG tablet 00:00: MOUTH Medical 00 EVERY DAY [place] Calcium 600 2020-0 Yes 1 tab, PO, Memoria +D oral 4-22 Daily, # l tablet 16:09: 90 tab, 0 Berhane n 00 Refill(s) Vitamin D3 2020-0 Yes 1,000 Memori a 1000 intl 4-22 IntlUnit = l units oral 16:08: 1 cap, PO, H ermann capsule 00 Daily, # 100 cap, 0 Refill(s) atorvastati 2020-0 Yes = 1 tab, Me moria n 20 mg 4-20 PO, Daily, l oral tablet 17:28: # 90 tab, H ermann 30 Refill(s) 4, Pharmacy: [facility] cy #[id number] Dextrometho 2019- Yes 10 mL, PO, Memoria rphan 2-11 Q4H, # 120 l Hydrobromid 22:52: mL, 0 Jdoi nn e 1 MG/ML / 00 Refill(s), Guaifenesin Pharmacy: 10 MG/ML [facility] Oral cy #[id number] Solution azithromyci Yes 500 mg = 1 Memoria n 500 mg 1-07 tab, PO, l oral tablet 20:36: Daily, X 5 Goodman 00 day, # 5 tab, 0 Refill(s), Pharmacy: [facility] cy #[id number] omeprazole 2018-06 Yes 20 mg = 1 Me moria 20 mg oral 2-06 cap, PO, l delayed 16:30: Daily, 0 Berhane n release 00 Refill(s) capsule doxycycline 2018-06 Yes 100 mg = 1 Memoria hyclate 100 1-27 tab, PO, l MG Oral 16:30: Q12H Goodman Tablet 00 Metronidazo 2018-06 Yes 500 mg = 1 Memoria le 500 MG 1-27 tab, PO, l Oral Tablet 16:30: Q12H, 0 Her hawk [Flagyl] 00 Refill(s) bismuth 2018-06 Yes 524 mg = 2 Vsaile roberto subsalicyla 1-27 tab, CHEW, l te 262 MG 16:30: BID, 0 Berhane n Chewable 00 Refill(s) Tablet [Pepto-bism ol] Acetaminoph 2018-06 Yes 325 mg = 1 Memoria en 325 MG 0-17 cap, PO, l Oral 18:46: TID, # 21 Dariel Capsule 30 cap, 0 [Tylenol] Refill(s), Pharmacy: [facility] cy #[id number] azithromyci 2018-06 Yes 500 mg = 1 Memoria n 500 mg 0-17 tab, PO, l oral tablet 18:46: Daily, X 5 Goodman 06 day, # 5 tab, 0 Refill(s), Pharmacy: [facility] cy #[id number] Fluticasone 2018-06 Yes 1 spray, Me moria propionate 0-17 NASAL, l 0.05 18:45: BID, # 16 Dariel MG/ACTUAT 12 gm, 0 Metered Refill(s), Dose Nasal Pharmacy: Carole[facility] [Flonase] #[id number] Fluticasone 2018-06 No 1 spray, Me moria propionate 0-17 NASAL, l 0.05 18:38: BID, # 16 Goodman MG/ACTUAT 00 gm, 0 Metered Refill(s), Dose Nasal Pharmacy: Carole[facility] [Flonase] #[id number] Acetaminoph 2018-06 No 325 mg = 1 Memoria en 325 MG 0-17 cap, PO, l Oral 18:38: TID, # 21 Goodman Capsule 00 cap, 0 [Tylenol] Refill(s), [id number] azithromyci 2018-06 No 500 mg = 1 Memoria n 500 mg 0-17 tab, PO, l oral tablet 18:38: Daily, X 5 Dariel 00 day, # 5 tab, 0 Refill(s), [id number] Levofloxaci Yes 500 mg = 1 Memoria n 500 MG 7-24 tab, PO, l Oral Tablet 13:38: Q24H, X 7 H ermann [Levaquin] 00 day, # 7 tab, 0 Refill(s), [id number] Levofloxaci No 500 mg = 1 Memoria n 500 MG 1-29 tab, PO, l Oral Tablet 14:52: Q24H, X 7 H ermann [Levaquin] day, # 7 tab, 0 Refill(s), [id number] Levofloxaci 2017-06 No 500 mg = 1 Memoria n 500 MG 0-18 tab, PO, l Oral Tablet 18:59: Q24H, X 10 Dariel [Levaquin] 00 day, # 10 tab, 0 Refill(s), [id number] Codeine No See Memoria Phosphate 2 9-25 Instructio l MG/ML / 21:35: ns, PRN Goodman Guaifenesin 53 cough, 20 MG/ML 5-10 mL PO Oral Q6H prn Solution cough, # [Cheratussi 240 mL, 1 n] Refill(s) valacyclovi No 1 gm = 1 Me moria r 1000 MG 9-25 tab, PO, l Oral Tablet 21:35: ONCE, # 1 H ermann [Valtrex] 00 tab, 0 Refill(s), Pharmacy: [facility] cy #[id number] Hydrocortis No 1 appl, Mem oria one 25 9-05 TOP, BID, l MG/ML 20:06: X 14 day, Goodman Topical 00 # 30 gm, 0 Cream Refill(s), Pharmacy: [facility] #[id number] baclofen 10 Yes See Memori a mg oral 4-16 Instructio l tablet 17:59: ns, # 90 Goodman 43 tab, TAKE 1 TABLET BY MOUTH 3 TIMES A DAY NEEDED FOR SPASMS, Pharmacy: [facility] #[id number] baclofen 10 No See Memori a mg oral 3-13 Instructio l tablet 19:36: ns, # 90 Dariel 08 tab, TAKE 1 TABLET BY MOUTH 3 TIMES A DAY NEEDED FOR SPASMS, Pharmacy: [facility] #[id number] tramadol No 50 mg = 1 Vasile roberto hydrochlori 2-23 tab, PO, l de 50 MG 20:52: BID, X 10 Herm hilton Oral Tablet 00 day, # 10 tab, 0 Refill(s) baclofen 10 No 10 mg = 1 M emoria mg oral 2-14 tab, PO, l tablet 20:01: TID, PRN Goodman 00 Spasms, # 90 tab, 0 Refill(s), Pharmacy: [facility] #[id number] Triamcinolo Yes See Memori a ne 1-18 Instructio l Acetonide 1 15:48: ns, apply H ermann MG/ML 00 small Topical amount to Cream affected area twice/day until symptoms resolved., # 60 gm, 1 Refill(s), Pharmacy: [facility] #[id number] atorvastati No 20 mg = 1 M emoria n 20 mg 1-11 tab, PO, l oral tablet 19:41: Daily, # He rmann 00 90 tab, 0 Refill(s), Pharmacy: [facility] #[id number] atorvastati Yes 20 mg = 1 M emoria n 20 mg 1-11 tab, PO, l oral tablet 19:40: Daily, # He rmann 15 90 tab, 5 Refill(s), Pharmacy: [facility] #[id number] amLODIPine Yes See Memoria 5 mg oral 1-04 Instructio l tablet 18:47: ns, TAKE 1 Jodi nn 05 TABLET BY MOUTH DAILY, # 90 tab, 1 Refill(s), Pharmacy: [facility] #[id number] levofloxaci Yes 500 mg = 1 Memoria n 500 mg 1-04 tab, PO, l oral tablet 14:44: Daily, X He rmann 00 10 day, # 10 tab, 0 Refill(s), Pharmacy: [facility] #[id number], DC the Zithromax order Codeine Yes See Memoria Phosphate 2 1-04 Instructio l MG/ML / 14:40: ns, PRN Goodman Guaifenesin 00 cough, 20 MG/ML 5-10 mL PO Oral Q6H prn Solution cough, # [Cheratussi 240 mL, 1 n] Refill(s) {6 No See Memoria (Azithromyc -04 Instructio l in 250 MG 14:39: ns, Take 2 He rmann Oral Tablet 00 tablets by [Zithromax] mouth the ) } Pack first day [Z-PAKS] then 1 tablet by mouth days 2-5., X 5 day, # 6 tab, 0 Refill(s), Pharmacy: [facility] #[id number] Vital Signs Vital Name Observation Time Observation Value Comments Source Systolic blood 2020-01-15 08:04:00 136 mm[Hg] [facility] Diastolic blood 2020-01-15 08:04:00 65 mm[Hg] [facility] Heart rate 2020-01-15 08:04:00 77 /min [facility] Body temperature 2020-01-15 08:04:00 37.17 Vanessa [facility] Respiratory rate 2020-01-15 08:04:00 16 /min [facility] Oxygen saturation in 2020-01-15 08:04:00 98 /min [facility] Arterial blood by Medical Ce nter Pulse oximetry Body height 2020-01-14 05:50:00 165.1 cm [facility] Body weight 2020-01-14 05:50:00 77.7 kg [facility] BMI 2020-01-14 05:50:00 28.51 kg/m2 [facility] Height 2019-10-01 15:14:00 160.02 cm [facility] Goodman Weight 2019-10-01 15:14:00 [facility] Dariel BMI Calculated 2019-10-01 15:14:00 Memori al Dariel Systolic (mm Hg) 2019-10-01 15:14:00 Vasile rial Goodman Diastolic (mm Hg) 2019-10-01 15:14:00 Mem orial Dariel Heart Rate 2019-10-01 15:14:00 [facility] Dariel Respitory Rate 2019-10-01 15:14:00 Memori al Goodman Temperature Oral (F) 2019-10-01 15:14:00 97.8 F [facility] Dariel Systolic (mm Hg) 2019-08-14 15:17:00 Vasile rial Goodman Diastolic (mm Hg) 2019-08-14 15:17:00 Mem orial Dariel Heart Rate 2019-08-14 15:17:00 [facility] Dariel Weight 2019-08-14 15:17:00 [facility] Goodman Height 2019-07-22 22:18:00 160.02 cm [facility] Dariel Weight 2019-07-22 22:18:00 [facility] Goodman BMI Calculated 2019-07-22 22:18:00 Memori al Goodman Systolic (mm Hg) 2019-07-22 22:18:00 Vasile rial Dariel Diastolic (mm Hg) 2019-07-22 22:18:00 Mem orial Dariel Heart Rate 2019-07-22 22:18:00 [facility] Goodman Temperature Oral (F) 2019-07-22 22:18:00 97.6 F [facility] Dariel Systolic (mm Hg) 2019-06-17 19:58:00 Vasile rial Dariel Diastolic (mm Hg) 2019-06-17 19:58:00 Mem orial Goodman Heart Rate 2019-06-17 19:58:00 [facility] Dariel Respitory Rate 2019-06-17 19:58:00 Memori al Goodman Height 2019-06-17 19:58:00 165.1 cm [facility] Dariel Weight 2019-06-17 19:58:00 [facility] Dariel BMI Calculated 2019-06-17 19:58:00 Memori al Goodman Height 2019-05-16 16:27:00 160.02 cm [facility] Dariel Weight 2019-05-16 16:27:00 [facility] Dariel BMI Calculated 2019-05-16 16:27:00 Memori al Goodman Systolic (mm Hg) 2019-05-16 16:27:00 Vasile rial Dariel Diastolic (mm Hg) 2019-05-16 16:27:00 Mem orial Goodman Heart Rate 2019-05-16 16:27:00 [facility] Dariel Temperature Oral (F) 2019-05-16 16:27:00 97.9 F [facility] Dariel Height 2019-04-02 14:23:00 160.02 cm [facility] Dariel Systolic (mm Hg) 2019-04-02 14:23:00 Vasile rial Dariel Diastolic (mm Hg) 2019-04-02 14:23:00 Mem orial Goodman Heart Rate 2019-04-02 14:23:00 [facility] Dariel Respitory Rate 2019-04-02 14:23:00 Memori al Dariel Temperature Oral (F) 2019-04-02 14:23:00 98.1 F [facility] Weight 2019-04-02 14:23:00 [facility] Dariel BMI Calculated 2019-04-02 14:23:00 Memori al Goodman Systolic (mm Hg) 2019-03-27 18:17:00 Vasile rial Goodman Diastolic (mm Hg) 2019-03-27 18:17:00 Mem orial Goodman Heart Rate 2019-03-27 18:17:00 [facility] Goodman Respitory Rate 2019-03-27 18:17:00 Memori al Goodman Temperature Oral (F) 2019-03-27 18:17:00 98.3 F [facility] Goodman Height 2019-03-27 18:17:00 165.1 cm [facility] Dariel Weight 2019-03-27 18:17:00 [facility] Goodman BMI Calculated 2019-03-27 18:17:00 Memori al Goodman Systolic (mm Hg) 2019-02-27 14:53:00 Vasile rial Dariel Diastolic (mm Hg) 2019-02-27 14:53:00 Mem orial Dariel Heart Rate 2019-02-27 14:53:00 [facility] Dariel Weight 2019-02-27 14:53:00 [facility] Goodman Systolic (mm Hg) 2019-01-01 13:09:00 Vasile rial Dariel Diastolic (mm Hg) 2019-01-01 13:09:00 Mem orial Dariel Temperature Oral (F) 2019-01-01 13:09:00 98.0 F [facility] Dariel Heart Rate 2019-01-01 13:09:00 [facility] Goodman Weight 2019-01-01 13:09:00 [facility] Dariel BMI Calculated 2018-11-15 14:02:00 Memori al Goodman Weight 2018-11-15 14:02:00 [facility] Goodman Systolic (mm Hg) 2018-11-15 14:02:00 Vasile rial Goodman Diastolic (mm Hg) 2018-11-15 14:02:00 Mem orial Dariel Temperature Oral (F) 2018-11-15 14:02:00 97.6 F [facility] Heart Rate 2018-11-15 14:02:00 [facility] Goodman Height 2018-11-15 14:02:00 160.02 cm [facility] Dariel BMI Calculated 2018-09-23 15:26:00 Memori al Goodman Weight 2018-09-23 15:26:00 [facility] Dariel Height 2018-09-23 15:26:00 160.02 cm [facility] Goodman Temperature Oral (F) 2018-09-23 15:26:00 97.5 F [facility] Heart Rate 2018-09-23 15:26:00 [facility] Dariel Respitory Rate 2018-09-23 15:26:00 Memori al Goodman Systolic (mm Hg) 2018-09-23 15:26:00 Vasile rial Dariel Diastolic (mm Hg) 2018-09-23 15:26:00 Mem orial Dariel Weight 2018-09-10 21:14:00 [facility] Temperature Oral (F) 2018-09-10 21:14:00 97.6 F [facility] Respitory Rate 2018-09-10 21:14:00 [facility] Heart Rate 2018-09-10 21:14:00 [facility] Systolic (mm Hg) 2018-09-10 21:14:00 [facility] Diastolic (mm Hg) 2018-09-10 21:14:00 [facility] Height 2018-08-01 14:26:00 160.02 cm [facility] Weight 2018-08-01 14:26:00 [facility] BMI Calculated 2018-08-01 14:26:00 [facility] Respitory Rate 2018-08-01 14:26:00 [facility] Heart Rate 2018-08-01 14:26:00 [facility] Systolic (mm Hg) 2018-08-01 14:26:00 [facility] Diastolic (mm Hg) 2018-08-01 14:26:00 [facility] Systolic (mm Hg) 2018-07-09 14:06:00 [facility] Diastolic (mm Hg) 2018-07-09 14:06:00 [facility] Heart Rate 2018-07-09 14:06:00 [facility] Temperature Oral (F) 2018-07-09 14:06:00 98.4 F [facility] Weight 2018-07-09 14:06:00 [facility] Systolic (mm Hg) 2018-07-08 16:29:00 [facility] Diastolic (mm Hg) 2018-07-08 16:29:00 [facility] Heart Rate 2018-07-08 16:29:00 [facility] Height 2018-07-08 16:29:00 165.1 cm [facility] Weight 2018-07-08 16:29:00 [facility] BMI Calculated 2018-07-08 16:29:00 [facility] Weight 2018-05-16 15:56:00 [facility] Respitory Rate 2018-05-16 15:56:00 [facility] Temperature Oral (F) 2018-05-16 15:56:00 98.2 F [facility] Heart Rate 2018-05-16 15:56:00 [facility] Systolic (mm Hg) 2018-05-16 15:56:00 [facility] Diastolic (mm Hg) 2018-05-16 15:56:00 [facility] BMI Calculated 2018-03-28 18:21:00 [facility] Weight 2018-03-28 18:21:00 [facility] Height 2018-03-28 18:21:00 160.02 cm [facility] Heart Rate 2018-03-28 18:21:00 [facility] Temperature Oral (F) 2018-03-28 18:21:00 98.2 F [facility] Systolic (mm Hg) 2018-03-28 18:21:00 [facility] Diastolic (mm Hg) 2018-03-28 18:21:00 [facility] Weight 2018-03-25 14:36:00 [facility] BMI Calculated 2018-03-25 14:36:00 [facility] Height 2018-03-25 14:36:00 160.02 cm [facility] Temperature Oral (F) 2018-03-25 14:36:00 97.8 F [facility] Heart Rate 2018-03-25 14:36:00 [facility] Respitory Rate 2018-03-25 14:36:00 [facility] Systolic (mm Hg) 2018-03-25 14:36:00 [facility] Diastolic (mm Hg) 2018-03-25 14:36:00 [facility] BMI Calculated 2018-03-08 14:35:00 [facility] Weight 2018-03-08 14:35:00 [facility] Heart Rate 2018-03-08 14:35:00 [facility] Temperature Oral (F) 2018-03-08 14:35:00 97.8 F [facility] Systolic (mm Hg) 2018-03-08 14:35:00 [facility] Diastolic (mm Hg) 2018-03-08 14:35:00 [facility] Height 2018-03-08 14:35:00 165.1 cm [facility] Weight 2018-03-05 20:47:00 [facility] Systolic (mm Hg) 2018-03-05 20:47:00 [facility] Diastolic (mm Hg) 2018-03-05 20:47:00 [facility] Heart Rate 2018-03-05 20:47:00 [facility] Temperature Oral (F) 2018-03-05 20:47:00 98.3 F [facility] Respitory Rate 2018-03-05 20:47:00 [facility] Height 2018-02-13 19:12:00 161.29 cm [facility] Temperature Oral (F) 2018-02-13 19:12:00 98.1 F [facility] Heart Rate 2018-02-13 19:12:00 [facility] Respitory Rate 2018-02-13 19:12:00 [facility] Systolic (mm Hg) 2018-02-13 19:12:00 [facility] Diastolic (mm Hg) 2018-02-13 19:12:00 [facility] Weight 2018-02-13 19:12:00 [facility] BMI Calculated 2018-02-13 19:12:00 [facility] Weight 2017-10-31 16:55:00 [facility] Height 2017-10-31 16:55:00 165.1 cm [facility] BMI Calculated 2017-10-31 16:55:00 [facility] Heart Rate 2017-10-31 16:55:00 [facility] Temperature Oral (F) 2017-10-31 16:55:00 98.8 F [facility] Systolic (mm Hg) 2017-10-31 16:55:00 [facility] Diastolic (mm Hg) 2017-10-31 16:55:00 [facility] BMI Calculated 2017-09-19 14:28:00 [facility] Weight 2017-09-19 14:28:00 [facility] Height 2017-09-19 14:28:00 162.56 cm [facility] Systolic (mm Hg) 2017-09-19 14:28:00 [facility] Diastolic (mm Hg) 2017-09-19 14:28:00 [facility] Respitory Rate 2017-09-19 14:28:00 [facility] Heart Rate 2017-09-19 14:28:00 [facility] Temperature Oral (F) 2017-09-19 14:28:00 98.2 F [facility] Weight 2017-08-28 20:25:00 [facility] Heart Rate 2017-08-28 20:25:00 [facility] Systolic (mm Hg) 2017-08-28 20:25:00 [facility] Diastolic (mm Hg) 2017-08-28 20:25:00 [facility] Systolic (mm Hg) 2017-08-28 19:58:00 [facility] Diastolic (mm Hg) 2017-08-28 19:58:00 [facility] Heart Rate 2017-08-28 19:58:00 [facility] Weight 2017-08-28 19:58:00 [facility] Weight 2017-08-03 20:19:00 [facility] Temperature Oral (F) 2017-08-03 20:19:00 97.9 F [facility] Systolic (mm Hg) 2017-08-03 20:19:00 [facility] Diastolic (mm Hg) 2017-08-03 20:19:00 [facility] Heart Rate 2017-08-03 20:19:00 [facility] Temperature Oral (F) 2017-07-25 19:39:00 97.4 F [facility] Systolic (mm Hg) 2017-07-25 19:39:00 [facility] Diastolic (mm Hg) 2017-07-25 19:39:00 [facility] Heart Rate 2017-07-25 19:39:00 [facility] Weight 2017-07-25 19:39:00 [facility] Height 2017-06-28 15:25:00 165.1 cm [facility] Weight 2017-06-28 15:25:00 [facility] BMI Calculated 2017-06-28 15:25:00 [facility] Heart Rate 2017-06-28 15:25:00 [facility] Systolic (mm Hg) 2017-06-28 15:25:00 [facility] Diastolic (mm Hg) 2017-06-28 15:25:00 [facility] Temperature Oral (F) 2017-06-14 14:26:00 97.8 F [facility] Weight 2017-06-14 14:26:00 [facility] Systolic (mm Hg) 2017-06-14 14:26:00 [facility] Diastolic (mm Hg) 2017-06-14 14:26:00 [facility] Heart Rate 2017-06-14 14:26:00 [facility] Weight 2017-04-27 15:20:00 [facility] Height 2017-04-27 15:20:00 163.83 cm [facility] BMI Calculated 2017-04-27 15:20:00 [facility] Systolic (mm Hg) 2017-04-27 15:20:00 [facility] Diastolic (mm Hg) 2017-04-27 15:20:00 [facility] Temperature Oral (F) 2017-04-27 15:20:00 98.5 F [facility] Heart Rate 2017-04-27 15:20:00 [facility] Respitory Rate 2017-04-27 15:20:00 Harshad Guzman Procedures Procedure Date / Time Performed Performing Clinician [facility] e RHYTHM STRIP - SCAN 2020-01-16 13:40:46 Provider, Carlos [facility] - [facility] TRANSFUSION SERVICE 2020-01-15 18:03:43 Provider, [facility] - REPORT - SCAN [facility] BASIC METABOLIC PANEL 2020-01-15 04:39:00 Darrick Vcik [facility] - (7) [facility] CBC W/PLT COUNT & AUTO 2020-01-15 04:39:[address] [facility] - DIFFERENTIAL [facility] XR KNEE RIGHT 1 OR 2 2020-01-14 12:57:00 Lior Liu [facility] TISSUE EXAM 2020-01-14 11:55:00 Darrick Vick [facility] AFB CULTURE + SMEAR 2020-01-14 11:49:09 [facility]rick Vick [facility] - ([facility]) [facility] ANAEROBIC CULTURE 2020-01-14 11:49:09 Darrick Vick [facility] FUNGUS CULTURE + SMEAR 2020-01-14 11:49:09 Darrick Vick [facility] SURGICALLY OBTAINED 2020-01-14 11:49:09 [facility] C[facility] GRAM [facility] ter SPIN/CONCENTRATION 2020-01-14 11:49:[address] [facility] - CHARGE [facility] AFB CULTURE + SMEAR 2020-01-14 11:46:11 Darrick Vick [facility] - (NON-SPUTUM) [facility] ANAEROBIC CULTURE 2020-01-14 11:46:11 Darrick Vick [facility] FUNGUS CULTURE + SMEAR 2020-01-14 11:46:11 Darrick Vick [facility] SURGICALLY OBTAINED 2020-01-14 11:46:11 Darrick Vick [facility] - CULTURE + GRAM STAIN [facility] ter AFB CULTURE + SMEAR 2020-01-14 11:44:39 Darrick Vick [facility] - (NON-SPUTUM) [facility] ANAEROBIC CULTURE 2020-01-14 11:44:39 VickDarrick [facility] FUNGUS CULTURE + SMEAR 2020-01-14 11:44:39 VickDarrick leon [facility] SURGICALLY OBTAINED 2020-01-14 11:44:39 Darrick Vick [facility] + GRAM ST[facility] ter ANESTHESIA PERIPHERAL 2020-01-14 09:23:35 Taco Sullivan [facility] BLOCK [facility] ANESTHESIA SPINAL BLOCK 2020-01-14 09:22:28 Taco Sullivan [facility] REVISION,TOTAL KNEE 2020-01-14 09:08:00 Moreno Darrick [facility] TYPE AND SCREEN, 2020-01-14 06:55:00 Lior Liu [facility] Mammogram 2018-07-08 06:00:00 [facility] Cataract surgery 2018-06-24 06:00:00 [facility] rmann Removal impacted cerumen 2018-03-08 15:45:00 [facility] orial Dariel requiring instrumentation, unilateral Colonoscopy<sup>1</sup> 2016-07-19 06:00:00 [facility]ile [facility] Procedure on 2013-10-09 05:00:00 [facility] Her hawk wrist<sup>2</sup> Colonoscopy 2012-12-18 05:00:00 [facility] Her hawk CEIOL - Cataract 2011-02-13 05:00:00 [facility] rmann extraction and insertion of intraocular lens<sup>3</sup> Arthroscopy of 2010-06-11 00:00:00 [facility] Her hawk knee<sup>4</sup> CRIS BSO - Total 2000-06-11 00:00:00 [facility] Her hawk abdominal hysterectomy and bilateral salpingo-oophorectomy<mcknight p>5</sup> Bunionectomy<sup>6</sup> [facility] Pneumococcal [facility]iel vaccination<sup>7</sup> Rotator cuff [facility]iel repair<sup>8</sup> Simple dental [facility] Goodman extraction<sup>9</sup> Plan of Care Planned Activity Planned Date Details Comments Source Future Scheduled 2020-02-10 INFLUENZA VACCINE (#1) [facility] 00:[facility]:00 [code = INFLUENZA Medical Ce nter VACCINE (#1)] Future Scheduled 2019-06-[address] [facility] Test 00:00:00 WELLNESS (YEAR 2 or Medical Center FIRST YEAR if no IPPE) [code = MEDICARE ANNUAL WELLNESS (YEAR 2 or FIRST YEAR if no IPPE)] Future Scheduled 2004-08-29 PNEUMOCOCCAL 65+ YRS [facility] - Test 00:00:00 (1 of 1 - Medical Center [id number] PCV13) [code = PNEUMOCOCCAL 65+ YRS (1 of 1 - [id number] PCV13)] Encounters Start End Encounter Admission Attending Care Care Encounter Source Date/Time Date/Time Type Type Clinicians Facility Department ID 2020-04-26 2020-04-26 Office GABO Vick [id number] 09:12:31 09:56:39 Visit Darrick AMBULATOR 350.1.13.21 Y 0.2.7.2.686 [id number] 600 2020-02-26 2020-02-26 Office GABO Vick 1.2.840.114 [id number] 10:05:08 10:15:08 Visit Darrick AMBULATOR 350.1.13.21 Y 0.2.7.2.686 [id number] 600 2020-01-29 2020-01-29 Office GABO Vick 1.2.840.114 [id number] 10:08:48 11:01:35 Visit Darrick AMBULATOR 350.1.13.21 Y 0.2.7.2.686 [id number] 600 2019-12-29 2019-12-29 Office GABO Vick 1.2.840.114 [id number] 09:15:39 10:16:40 Visit Darrick AMBULATOR 350.1.13.21 Y 0.2.7.2.686 [id number] 600 2019-11-25 2019-11-25 Outpatient MARY Campos [facility] [id number] 09:15:00 09:15:00 Mar Haider 2019-10-01 2019-10-01 Outpatient Mazel, L [facility] [id number] 09:45:00 23:59:59 Chrissy 83 2019-09-29 2019-09-30 Outpatient [facility] [id number] 11:13:37 23:59:59 15 2019-08-20 2019-08-21 Outpatient [facility] [id number] 16:25:11 23:59:59 14 2019-08-14 2019-08-14 Outpatient Beth, [facility] [id number] 09:15:00 23:59:59 Mar 84 Sincereitar 2019-07-22 2019-07-22 Outpatient Beth, [facility] [id number] 16:15:00 23:59:59 Mar 88 Sincereitar 2019-07-10 2019-07-10 Outpatient Sangalli, [facility] [id number] 10:00:00 10:00:00 Brendon Mckeon 64 2019-07-10 2019-07-10 Outpatient VISIT, [facility] [id number] 09:30:00 09:30:00 NURSE STWC 64 MAMMO 2019-06-17 2019-06-17 Outpatient VISIT, [facility] [id number] 14:45:00 23:59:59 NURSE STWH 88 XRAY 2019-06-17 2019-06-17 Outpatient Nwani, [facility] [id number] 13:45:00 23:59:59 José Miguel 86 Darci 2019-05-16 2019-05-16 Outpatient Beth, [facility] [id number] 10:00:00 23:59:59 Mar 83 Meliza 2019-05-16 2019-05-16 Outpatient Beth, [facility] [id number] 10:00:00 10:00:00 Mar 74 Sincereitazoila 2019-04-09 2019-04-10 Outpatient [facility] [id number] 09:52:12 23:59:59 13 2019-04-02 2019-04-02 Outpatient Aidal, L [facility] [id number] 09:15:00 23:59:59 Chrissy 81 2019-03-28 2019-03-28 Outpatient Aidal, L [facility] [id number] 10:15:00 10:15:00 Chrissy 80 2019-03-27 2019-03-27 Outpatient Shawna, [facility] [id number] 13:00:00 23:59:59 José Miguel Aldana Darci 2019-03-24 2019-03-24 Outpatient Aidal, L [facility] [id number] 08:45:00 08:45:00 Chrissy 74 2019-03-17 2019-03-17 Outpatient Espinoza, [facility] [id number] 14:45:00 14:45:00 Luca 78 2019-02-27 2019-02-27 Outpatient Beth, [facility] [id number] 10:15:00 23:59:59 Mar 77 Meliza 2019-01-01 2019-01-01 Outpatient [facility] [id number] 08:30:00 23:59:59 77 2018-11-15 2018-11-15 Outpatient Abraham, [facility] [id number] 09:00:00 23:59:59 Onofre Bonner 72 2018-11-15 2018-11-15 Outpatient Abraham, [facility] [id number] 09:00:00 09:00:00 Onofre P 61 2018-09-23 2018-09-23 Outpatient Aidal, L [facility] [id number] 10:15:00 23:59:59 Chrissy 58 2018-09-10 2018-09-10 Outpatient Thrasher, [facility] [id number] 16:00:00 23:59:59 Alan Kristine Joseph 2018-08-01 2018-08-01 Outpatient [place], [facility] [id number] 08:30:00 23:59:59 Kaylynn 71 ma Ugcandiceze 2018-07-11 2018-07-11 Outpatient Sangalli, 2.16.840. 2.16.840.1. [id number] 08:27:00 23:59:00 Brendon Mckeon [id number] 3.615.29 5.29 2018-07-11 2018-07-11 Outpatient Sangalli, 2.16.840. 2.16.840.1. [id number] 08:27:00 23:59:00 Brendon Mckeon [id number]. [id number] 3.615.29 5.29 2018-07-09 2018-07-09 Outpatient VISIT, [facility] [id number] 09:30:00 23:59:59 NURSE STWH 71 DEXA 2018-07-09 2018-07-09 Outpatient VISIT, [facility] [id number] 09:30:00 23:59:59 NURSE STWH 71 DEXA 2018-07-09 2018-07-09 Outpatient [facility] [id number] 08:00:00 23:59:59 67 2018-07-09 2018-07-09 Outpatient [facility] [id number] 08:00:00 23:59:59 67 2018-07-09 2018-07-09 Outpatient VISIT, [facility] [id number] 09:30:00 09:30:00 NURSE STWH 68 DEXA 2018-07-09 2018-07-09 Outpatient VISIT, [facility] [id number] 09:30:00 09:30:00 NURSE STWH 66 DEXA 2018-07-09 2018-07-09 Outpatient VISIT, [facility] [id number] 09:30:00 09:30:00 NURSE STWH 69 DEXA 2018-07-09 2018-07-09 Outpatient VISIT, [facility] [id number] 09:30:00 09:30:00 NURSE STWH 70 DEXA 2018-07-09 2018-07-09 Outpatient VISIT, [facility] [id number] 09:30:00 09:30:00 NURSE STWH 66 DEXA 2018-07-09 2018-07-09 Outpatient VISIT, [facility] [id number] 09:30:00 09:30:00 NURSE STWH 68 DEXA 2018-07-09 2018-07-09 Outpatient VISIT, [facility] [id number] 09:30:00 09:30:00 NURSE STWH 69 DEXA 2018-07-09 2018-07-09 Outpatient VISIT, [facility] [id number] 09:30:00 09:30:00 NURSE STWH 70 DEXA 2018-07-08 2018-07-08 Outpatient Sangalli, [facility] [id number] 10:00:00 23:59:59 Brendon Gregg 2018-07-08 2018-07-08 Outpatient Sangalli, [facility] [id number] 10:00:00 23:59:59 Brendon Mike 44 2018-07-08 2018-07-08 Outpatient VISIT, [facility] [id number] 09:30:00 23:59:[address] 63 DEXA 2018-07-08 2018-07-08 Outpatient VISIT, [facility] [id number] 09:30:00 23:59:59 [address]URSE STWH 63 DEXA 2018-07-08 2018-07-08 Outpatient VISIT, [facility] [id number] 09:30:00 09:30:00 NURSE STWC 43 MAMMO 2018-07-08 2018-07-08 Outpatient VISIT, [facility] [id number] 09:30:00 09:30:[address] 43 MAMMO 2018-05-16 2018-05-16 Outpatient Abraham, [facility] [id number] 09:45:00 23:59:59 Onofre Bonner 59 2018-05-09 2018-05-09 Outpatient Abraham, [facility] [id number] 08:30:00 08:30:00 Onofre P 41 2018-03-28 2018-03-28 Outpatient Beth, [facility] [id number] 13:15:00 23:59:59 Mar Haider 2018-03-25 2018-03-25 Outpatient Aidal, L [facility] [id number] 09:45:00 23:59:59 Chrissy 57 2018-03-21 2018-03-21 Outpatient Aidal, L [facility] [id number] 09:30:00 09:30:00 Chrissy 52 2018-03-08 2018-03-08 Outpatient Donekaileyudi, [facility] [id number] 09:30:00 23:59:59 Raymond 55 [facility] 2018-03-05 2018-03-05 Outpatient Abraham, [facility] [id number] 15:15:00 23:59:59 Onofre Bonner 55 2018-02-13 2018-02-13 Outpatient Abraham, [facility] [id number] 13:45:00 23:59:59 Onofre Bonner 54 2017-10-31 2017-10-31 Outpatient MISCHER MISCHER [id number] 12:00:00 23:59:59 53 2017-09-28 2017-09-29 Outpatient MHMISCHER MHMISCHER [id number] 13:18:00 23:59:59 12 2017-09-24 2017-09-25 Outpatient [facility] [id number] 08:37:00 23:59:59 11 2017-09-19 2017-09-19 Outpatient Mazel, L [facility] [id number] 09:15:00 23:59:59 Chrissy 40 2017-09-19 2017-09-19 Outpatient Mazel, L [facility] [id number] 09:15:00 23:59:59 Chrissy 40 2017-08-28 2017-08-28 Outpatient Beth, [facility] [id number] 15:30:00 23:59:59 Mar Haider 2017-08-28 2017-08-28 Outpatient Thrasher, [facility] [id number] 14:30:00 23:59:59 Alan 34 Autumntrai 2017-08-28 2017-08-28 Outpatient Thrasher, [facility] [id number] 14:30:00 23:59:59 Alan 34 Ranjitrai 2017-08-03 2017-08-03 Outpatient Beth, [facility] [id number] 14:00:00 23:59:59 Mar Haider 2017-08-01 2017-08-02 Outpatient [facility] [id number] 15:46:00 23:59:59 10 2017-07-25 2017-07-25 Outpatient VISIT, [facility] [id number] 14:15:00 23:59:[address] 48 ANNEAY 2017-07-25 2017-07-25 Outpatient Beth, [facility] [id number] 13:15:00 23:59:59 Mar Haider 2017-07-25 2017-07-25 Outpatient VISIT, [facility] [id number] 14:15:00 14:15:00 [address]WH 47 XRAY 2017-06-28 2017-06-28 Outpatient VISIT, [facility] [id number] 10:00:00 23:59:[address] 45 EMERSONO 2017-06-28 2017-06-28 Outpatient Sangalli, [facility] [id number] 09:00:00 23:59:59 Brendon Mckeon 21 2017-06-28 2017-06-28 Outpatient Elizabethi, [facility] [id number] 09:00:00 23:59:59 Brendon Mckeon 21 2017-06-28 2017-06-28 Outpatient Sangalli, [facility] [id number] 09:00:00 23:59:59 Brendon Mckeon 21 2017-06-28 2017-06-28 Outpatient VISIT, [facility] [id number] 10:00:00 10:00:00 NURSE STWC 20 MAMMO 2017-06-28 2017-06-28 Outpatient VISIT, [facility] [id number] 10:00:00 10:00:00 NURSE STWC 20 MAMMO 2017-06-28 2017-06-28 Outpatient VISIT, [facility] [id number] 10:00:00 10:00:00 NURSE STWC 20 MAMMO 2017-06-21 2017-06-22 Outpatient [facility] [id number] 13:39:00 23:59:59 09 2017-06-14 2017-06-15 Outpatient [facility] [id number] 08:53:00 23:59:59 08 2017-06-14 2017-06-14 Outpatient Espinoza, [facility] [id number] 08:15:00 23:59:59 Luca 42 2017-04-27 2017-04-27 Outpatient Abraham, [facility] [id number] 09:15:00 23:59:59 Onofre P 18 2016-07-21 2016-07-21 Outpatient Abbie, 2.16.840. 2.16.840.1. [id number] 14:03:00 23:59:00 Abdifatah [id number]. [id number] Hira 3.615.29 5.29 2016-07-07 2016-07-07 Outpatient Abbie, 2.16.840. 2.16.840.1. [id number] 10:35:00 23:59:00 Abdifatah Persaud.[id number]. [id number] Hira 3.615.29 5.29 Results Test Description Test Time Test Comments Results Result Comments Source AFB culture + smear (non-sputum) 2020-03-03 08:38:00 Test Item Value Reference Range Interpretation Comme nts Result (test code = 6463-4) No acid-fast bacilli isolated in 42 day s AFB Smear (test code = 78327-0) No [facility]UT[facility]2020-03-03 08:38:00 Test Item Value Reference Range Interpretation Comments CULTURE (BEAKER) (test No acid-fast bacilli code = 1095) isolated in 42 days AFB SMEAR (BEAKER) No acid fast bacilli (test code = 994) seen AFB CULTURE + SMEAR (NON-SPUTUM)2020-03-03 08:38:00 Test Item Value Reference Range Interpretation Comments CULTURE (BEAKER) (test No acid-fast bacilli code = 1095) isolated in 42 days AFB SMEAR (BEAKER) No acid fast bacilli (test code = 994) seen AFB CULTURE + SMEAR (NON-SPUTUM)2020-03-03 08:38:00 Test Item Value Reference Range Interpretation Comments CULTURE (BEAKER) (test No acid-fast bacilli code = 1095) isolated in 42 days AFB SMEAR (BEAKER) No acid fast bacilli (test code = 994) seen Fungus culture + [id number] 16:29:00 Test Item Value Reference Range Interpretation Comments Result (test code = No fungus isolated in 6463-4) 28 days Fungus Smear (test No fungi seen code = 1406) [facility] [id number] 16:29:00 Test Item Value Reference Range Interpretation Comments CULTURE (BEAKER) (test No fungus isolated in code = 1095) 28 days FUNGUS SMEAR (BEAKER) No fungi seen (test code = 1406) FUNGUS CULTURE + [id number] 16:29:00 Test Item Value Reference Range Interpretation Comments CULTURE (BEAKER) (test No fungus isolated in code = 1095) 28 days FUNGUS SMEAR (BEAKER) No fungi seen (test code = 1406) FUNGUS CULTURE + [id number] 16:29:00 Test Item Value Reference Range Interpretation Comments CULTURE (BEAKER) (test No fungus isolated in code = 1095) 28 days FUNGUS SMEAR (BEAKER) No fungi seen (test code = 1406) ANAEROBIC [id number] 19:02:00 Test Item Value Reference Range Interpretation Comments CULTURE (BEAKER) (test No anaerobes isolated code = 1095) ANAEROBIC [id number] 18:50:00 Test Item Value Reference Range Interpretation Comments CULTURE (BEAKER) (test No anaerobes isolated code = 1095) Anaerobic [id number] 18:49:00 Test Item Value Reference Range Interpretation Comments Result (test code = No anaerobes isolated 6463-4) [facility] [id number] 18:49:00 Test Item Value Reference Range Interpretation Comments CULTURE (BEAKER) (test No anaerobes isolated code = 1095) SURGICALLY OBTAINED CULTURE + GRAM [id number] 12:55:00 Test Item Value Reference Range Interpretation Comments CULTURE (BEAKER) (test code No growth = 1095) GRAM STAIN RESULT (BEAKER) No WBCs (test code = 1123) GRAM STAIN RESULT (BEAKER) No organisms seen (test code = 66299) SURGICALLY OBTAINED CULTURE + GRAM [id number] 12:54:00 Test Item Value Reference Range Interpretation Comments CULTURE (BEAKER) (test code No growth = 1095) GRAM STAIN RESULT (BEAKER) 1+ WBCs (test code = 1123) GRAM STAIN RESULT (BEAKER) No organisms seen (test code = 19146) Surgically obtained culture + gram [id number] 12:53:00 Test Item Value Reference Range Interpretation Comments Result (test code = 6463-4) No growth Gram Stain Result (test No organisms seen code = 1123) [facility] [id number] 12:53:00 Test Item Value Reference Range Interpretation Comments CULTURE (BEAKER) (test code No growth = 1095) GRAM STAIN RESULT (BEAKER) 1+ WBCs (test code = 1123) GRAM STAIN RESULT (BEAKER) No organisms seen (test code = 30175) Tissue [id number] 12:16:00 Test Item Value Reference Range Interpretation Comments Case Report (test code Surgical Pathology = 104) Report Case: [id number] Authorizing Provider: Darrick Vick Collected: 01/14/2020 11:55 AM Louise Martinez MD Ordering Location: [facility] Received: 01/14/2020 04:17 PM Perioperative Services Pathologist: Kenia Chaney MD Specimen: Explant, RIGHT KNEE TOTAL REVISION DIAGNOSIS (test code = [id number] 3220) uZzEwMzNcZnRuYmpcdWMxIH qjkpLfYXemz8RcR7GkGhWhN FxhbnNpXGRlZmxhbmcxMDMz WHC7sdAyVPJqLIeeFYJuRQf uYd4hiDCjdGgrBxUsRQIwy1 kqleCPkhqiuAi9a9giQGHdV kJ7iZYiRWdaE1uupnBikSGq SSDzCDs4qB57AANsfD7pdLL sIDtccmVkMFxncmVlbjBcYm d7LPGfJ8kxUVKbWTBbW3MxX V1iJUTxGzn9ZVD2QLR7yLhc a9D8oDAmoRGhiIndJoSgGpW bUNZYv5LlOWf5fRypI7JnMX RpKdG9dIRhNLMhMDuqWLNiR DYimyF1iE86KVhxrvU0aYCm e3Zdv22yu926sF7zkLOlVVX 0PSNuYGAcmBHjASSvKEL5PC XpoCWnW3z6SrOtvSEuQ9S0B pDdsMEdC4A8GsTymEUnH1W5 TpAssTVbFISdxRRfKg3zpVM ohVUvke7emx88SOR5n4DehZ ogHKL6YDS1WkGzRo8ngOHcV FPvKR2qSvSseIRhMYXpjr01 rZxyJHnffyRukS8gMmPcGKV pyJOrAXMaPD5xzJTzBWIriM 5ucmxjXHBnYnJkcmhlYWRcc ZebbwXyTc6xiZguHFL9XOtb W7cquN0jIdC5WSrzW9xvcF1 eYLq9TCoqvAR8ALQsqH8aHR 5skmxtt5skSyIkNV7hykhhy 7wjPmNnGM1vjgu8r1uhZpEb LT1nnslna6lkTuPqQRniQXR ulrwcJSVhu3LkynwqFJDiu1 WsL4UirVcvN15fwVftD06iH ATuxCsvcV5ciFvtpG2aNzYz ZnMyMFxxbFxwbGFpblxmMFx mczIwXHBsYWluXGYwXGZzMj ZhlVWwNRVjdgSwtAdvoO1uX jBcZnMyMFxwbGFpblxmMVxm czIwIEEuIEhBUkRXQVJFLCB UQL2PByVCUMUKQr1ERhJPBA JUAA8WXSnSHfAHTebDJnhaW JFnyFbayFarmY1wSqCvBhZv MFxwbGFpblxmMVxmczIwICA yTA2qGZVYCYqCRtVoPVRDMg PIVaeLFESdJ5SDRPsSL1LIT JGGI2NMZFNLYB3FCW8aaDlc fL0eOlCfZpWkFSgjKIL6x2w ydGYxXHNzdGUxODAwMFxhbn KnAZPvAdanwynbPUOiXJY5t wYmQGFzHSrmEOKuFPziHw4v eBEfxEqqIgSkBOYca0fjjnC MghvycKz6f6yjSNBxKtQ7qW YaMXacY4clrpTonGKkZULcL Os6jQ64CZNhwZ0weRDcXUkm wdFuSzF6VAwmRFDtAnK9FPV mcVVuXFSeS0ywPMGeUMukSP HfSJlgcMPsFCB1kEbkm2W5m GVzaGVldHtcZjBcZnMyMiBO s1CvHNd2nMmjA2AnWUJvKwL 1bHQgUGFyYWdyYXBoIEZvbn V7oX24TJzgojH2aKCnd5Drt 16lb944lC0inRFfZDP6CERu NKBzvBZaBQLsMGN1FCVggYW uV0fwJWDsJS6hpsofPOnbHL xrEFHlnYB5JRMmbXCaQ2XgS JHpJUovTTCwobo7ZkVeUl0a fYQjcOjhQDndi1yaq8rhyVH uGyw2HJKsSeJeSwiyQLxek3 Hzi0wiCFDvdo8fGIR8hPMay Igra9V7zHEwLTUapJSdTNJa XP1xyRNfCYKzjV7fyaidMHI nYnJkcmhlYWRccGdicmRyZm 8tpJrnGGV8YDmtT4joeD9rY hZ3UPbvQ9uezM8aYYx7FUnx NANmvUW2piO4ZTZewOIkC0U ygW8lCKEsKA3ubmm1s4dlIM U0JYpfPDSqBeP6qxX7QHVpc RIhVUNliXblPArpv290NVH2 LdQvKVJvg5KnF9DvoCjcP98 ynDpiQ48zDKByiNgbiE9mlG vlfZ8uVcHyQpJxUTxeeXfmW C4uSNQjS3okeNJmVFLuRNPl V0auUeIxzX7zaHrtFDerbwT cWEMxAhs4WLAarENuRIGiJj k9QDIzDDCjM02pewpuUUW4w I9mo6hfi3WgLTeoXHL1VVCw e02nXGjnduL8YWznLo76LJo tNEP2RAzqOZG8iN== CPT Code(s) (test code t5kuwSOoQJDdnINvJxTgWXX = 3357) wTDYpo9cfWMBxbAGrNkXwBw NcZnRuYmpcdWMxXGRlZmYwe 9qwx472xHSej3fhFPVbViP4 qECrSWGigLYsZ631v5gdb6k mpqLckAT5UBWxKWB4XNnzbj KmluB8GImjbZUoCyD6TUgyo iEtJFgzvdQkziGjWxh7SDNw I003ZBI4wFhpz0ziEXQ1AHS zXIEhAiPaOq9daMJuR146NT WqJIRYEKCjbBj9XVIccdZna uXsbRVGz478M084e5uyXDUy tdLnqLnEiswlf4lkJ105TDM hcGVydzEyMjQwXHBhcGVyaD N2HTRyWI8ugydxRwKbNZ0ky wzsEoFiQW7izar4KyDkXQ9q cmdiNzIwXGhlYWRlcnkwXGZ cv9YakqgfYC1cE8Myr7U9yU 9maXRcZGVmdGFiNzIwXGZvc h6fmJZaBDzxc4DuWLG4riO2 iPVhmIAgOMEcNR17Gtgjd1D rFrbmEVF4FXBnaeJie4Ppr6 fnQzIlqsTiR6zbN4TiXZFaC BCeUKNzSxIwceJiq9Npn6Hp bHExjEf9o5htJQXfICBehLm rg0uoEKZ6KLVaS0U2hKYcu5 dnPHckEFVifRQ3tzlmDFnfX CJqazP7ahpzLLdnCSDwuWH0 bnovVOjsYAPlKvR3cmngNMb bSHIqKPB0XYkou524ONF7IT xzYmtwYWdlXHBnbmNvbnRcc GduZGVjXHBsYWluXHBsYWlu XGYwXGZzMjRccWxccGxhaW5 lUfVmJjJiMTuxEO7zDODfO2 wpwGOaZSAdMYXnE4vbGqZur Q2ecMbtIQqvadNeSQa5JsIt XHBhcn0= CLINICAL HISTORY (test x7wtiPLwUZPmwGMlNmRvIUN code = 3356) fVQGaw5ryJZXzrMUmBnMvTc NcZnRuYmpcdWMxXGRlZmYwe 5mwg943iYObp5cfOJJlAsL6 pPJyUGWrtWUeA047NVMpJSr xd4jph6SgGVSrsTTww2Q3OS DDgfcqsSa0fWztZ08tm4I0P dqnG0vrWVBlDBLjI1YhQY0v GAOkCrk2YZW9HEV4DGXbBVZ qQ2NeWP7jEZFyrCWwKWs5m5 nkoDncYCGxZAF4u9joQQxgj aHcIE1nwx1yhVt7j6ykquXk SRSqPOYadWCWUVNoA9KiwSl bGw2nuEe0wUnaAjybDLN5Ly b5UE6hzk55myq5yTowQKYij ocrNfX6ZGewUPWjrwfnTAl2 MFxtYXJnbDcyMFxtYXJncjc yMFxtYXJndDcyMFxtYXJnYj peLRgiKTNuGKB4DBkfz706I NX6FTean0qve2fhkETaRlx1 FWNqNhRpAujlFAspj0Rcm6r iVXUvzv0kRNG8eGXseObsr4 A6dCSqXZUsaTVqucBkMNDaE bT1GComOP7jmm49AWAzMXB2 al5soEHpaKkyocBkqXKpKGi wE4LrYJLnr296SIXiO4IyNZ Xng2O0rcVqXmGnNKBwoVB6d hV5PGAwKAa9iZOmwkR3ktUj qSSyN1wkkU15GrOozDWtZ8W hrD97TlQmwLElS2ItmH94Fn GqrDXoW1FiuH16JvSjpEIhY DPcwEUvGn8rrXLpgUPwt8Oa cAOzZLfmN12sp985KAUxfaH rW5qsnNJogffqlHAyeixnAH kmqpW6FPVrQSAsRByiZYJcD GZzMjBcbGFuZzEwMzNcaGlj tPmrCGdgHgDwTYVhHRlfH4k cZjFcZnMyMCBQcmVvcCBkaW Rios2aaRJ1RDXOZOIaUO3hI 0WjGFycb4VpllhqSvVbAlDb zwZlpb7vzXDzBNM7WYwpBBM tdMIuh4LvTNGjQfEdm2pvhU inbP8jrHidhHVklyMcmP57B XIuIFxwYXJ9 SPECIMEN SOURCE (test l9pngJTmNKTyiLNrAmCzJDF code = 3377) tCINej5olSZXrlUEkEuRyPm NcZnRuYmpcdWMxXGRlZmYwe 0rqy748pITuh0zyEAZmKuQ1 lPNzLKQkeQFaG677h2hve8e isqXyzSE7OGPwMFV2DBdoax LodpY5LUijwCQvYeS8FVocn tPiJJoorrKhtdSyYro7RKNm B620JAQ8cMcmj7ybJQW1ZFJ iRMUnDoNnWl8gxIFbB016LR LdMLKLFOUthPz8FRFicuVva wXnnROQl953Q806h0vbVWXd lcWtdZcFvjmqo2bwI292GWM hcGVydzEyMjQwXHBhcGVyaD Y8EQCjNF5xqvilVjRcFR3hk ibbScEuHY5vkla2KhQhYG5r cmdiNzIwXGhlYWRlcnkwXGZ zt2EjfovnCV5yB3Vbz7V5qH 9maXRcZGVmdGFiNzIwXGZvc l5ysCEiCDlyl2TxAXO3sqB9 tIPmkBWsHSUgYC90Yfrtm2V lVpkbEFO9IINfhqGba0Rsr2 enWkHlreUlG9moB5ToOAJtJ WFjPZIgDmYwxqFon5Zyf0Ql iEGdxSp9s8mcKWAdJNOejSr ff6kfAZZ8TSJaO0O3wBBmd3 ulUImxMQQcaCT4vlarKStlB AEunyG6zmetADwqQMJaoWB6 sbftCIazCADnCnX8vdroPUk vNIYgWZE5FDkea734DMR4YH xzYmtwYWdlXHBnbmNvbnRcc GduZGVjXHBsYWluXHBsYWlu XGYwXGZzMjRccWxccGxhaW5 eWyFmAcQqIFtrTS9jCTDcX3 ssnWWrXADrVJSdI3ivMeAvz G4rqYjiUTttwfXuDNB9vOsj bnRccGFyfQ== GROSS DESCRIPTION v0ldtEHvMEFzmRYaRgSwDIJ (test code = 3366) yPNFln4anXZOkwOCxGnDbWh NcZnRuYmpcdWMxXGRlZmYwe 5bhz327uYNqt5ooAMYsOdW3 iEPmAPAeeVDpY160BOLcTMz an1xky4GpOKKloIXpj6U1DJ VOavonsZy3aNcpI47oo2W3L llrG5pwDNMbMGqwKLFsUOge uQZaVRK7CUOfRWN7VTelllU cfdO1KEycqTIvTtT6DLj1q3 lacOhyOTHxQNW2t9lgTLnwj dBdIV8rdu1vvFd9j5tgviCr SMTzBTLnyPNXGNQqQ4AwpDk oUt2lvOi2iXmtVmzeFGQ0Bb u6MQ9kix98zyk1wJehHUSvg lgnHiW4OBhkAWObadqfFHj4 MFxtYXJnbDcyMFxtYXJncjc yMFxtYXJndDcyMFxtYXJnYj znLXmuFOKpKDE5NYfgb170N UI3LXbku4gup4ginJHxSai0 WAWyQaNuHgszCBqot9Alb6l dOYDlsd9lSPP2bNYbfNptx4 B7hRHgCVKcjFSnaqDbZUIyB oW7KLzjSP7jhc78IILrYOC9 co7smRCicLydcjIvqTYlPUe jW7HiPENwl578MLSuV6LvIT Qvn8K8ezBdPoRyCTXmyZD2c mX4PNFyVXl2cLPwbfG1fyHj qEBeS3ioqO25CkHzqRAiF1E jqV68PnRlrHIbC0LhsD57Jg SkkOJmM2EdvL83UgTcrDPaH KNavLVcDu9viZDxcXKux6Wx tWTuSDjmB47ql429EJZgszY tM9pahATtnmqfsHWtzetvOL xmczIwXHFsXHBsYWluXGYwX ORoGsYbkOzpgB9kMmMhHnNt MCBSZWNlaXZlZCBmcmVzaCB sYWJlbGVkIHdpdGggdGhlIH YjwFmjecOjyrKeMF1eVGXzQ 8Kmh5Pnm82wpkJoPrHmXRXi ZZBfeexqsYMen96gVVJ7t4E wmEZjMLZls4dlzmSiZNAgFK RocmVlIHBpZWNlcyBvZiBtZ DOtuIafOaVpdkH4PXNpOHdj WFerz0ykhKKso9O7rI5ySBC cOjOxVQMpf6QxQIYsUU7bqQ 0oOOIip72pAs82PUAgPENrR SBjbSBpbiBncmVhdGVzdCBk qK1evgHmt05sRSGeKLGjo0q oe0zcfkuaqM7hP0BvwKBcj0 4gaXMgaWRlbnRpZmllZDogX HBhclxwYXIgRDEyOTQzMzEy IAACIQCgskPlVWJ6BIliMBZ nJetuYCYgZ7LIVNBeIEPssE GvHOWSVYQlCS3pRQEmngV5H P1jRRJ8ZQGifqHHDedvRxAX LTAwMDBccGFyXHBhciBBIGd qb0YmKXKds0DsB1QemQxscF VgvIGwOZ5nSX0xVOBlH4Mhj 27aKKSdXLMfnJVcvPK9PDTl HPZjcYYfZ4ApVGTdjkFjr5D vM1Fbh3MpFXvcvGrtVPWvq0 4bo30obK3bFTDLB1JuIYIwn GFyfQ== Gross assessment was [facility] performed at ([facility], code = 2777) Department of Pathology, [address] [place] [address], Technical component [facility] was performed at ([facility], code = 2778) Department of Pathology, [address] [place] [address], Professional component [facility] was performed at ([facility], code = 2779) Department of Pathology, [address] [place] [address], [facility] RosaTISSUE [id number] 12:16:00Surgical Pathology Report Case: [id number] Authorizing Provider: Darrick Vick Collected: 01/14/2020 11:55 AM Louise Martinez MD [facility]ing[facility]: [facility] OR Received: 01/14/2020 04:17 PM Perioperative Services Pathologist: Kenia Chaney MD Specimen: Explant, RIGHT KNEE TOTAL REVISION A. HARDWARE, REMOVAL, GROSS EXAMINATION ONLY: - HARDWARE IDENTIFIED (SEE GROSS DESCRIPTION). Signing Pathologist Direct Phone Line: [phone] signed by Kenia Chaney MD on 01/15/2020 at 12:16 [id number] diagnosis: Mechanical loosening of internal left knee prosthetic joint, initial encounter. ExplantReceived fresh labeled with the patient's name, accession number and "right knee total revision" arethree pieces of metallic alcantara to alcantara-white orthopedic hardware ranging from 6.4 to 6.5 cm in greatest dimension. The following inscription is identified: [id number] 2.5 PE 10 [id number] gross photograph is taken. No sections are submitted. This case is for gross examination only. PA/pl [facility], Department of Pathology, [address] [place] [id number], [facility], [facility], [address] [place] [address], [facility]West [facility], Department of Pathology, [address] [place] [address], [employer] [id number] 05:02:00 Test Item Value Reference Range Interpretation Comments Sodium (test code = 140 meq/L 270-113 9891-2) Potassium (test code = 4.0 meq/L 3.5-5.1 2823-3) Chloride (test code = 109 meq/L 98-107 H 2075-0) CO2 (test code = 22 meq/L 22-29 2028-9) BUN (test code = 15 mg/dL 7-21 3094-0) Creatinine (test code = 0.60 mg/dL 0.57-1.25 2160-0) Glucose (test code = 105 mg/dL 70-105 2345-7) Calcium (test code = 8.2 mg/dL 8.4-10.2 L 68985-9) EGFR (test code = 117 mL/min/1.73 [place] [address]-1) NOT ACCURATE CREATININE CLEARANCE IN PREDICTING GLOMERULAR FILTRATION RATE . ESTIMATED GFR I S NOT APPLICABLE FOR DIALYSIS PATIEN TS. Lab Interpretation Abnormal (test code = 48648-5) [facility] METABOLIC [id number] 05:02:00 Test Item Value Reference Range Interpretation Comments SODIUM (BEAKER) 140 meq/L 136-145 (test code = 381) POTASSIUM (BEAKER) 4.0 meq/L 3.5-5.1 (test code = 379) CHLORIDE (BEAKER) 109 meq/L 98-107 H (test code = 382) CO2 (BEAKER) (test 22 meq/L 22-29 code = 355) BLOOD UREA NITROGEN 15 mg/dL 7-21 (BEAKER) (test code = 354) CREATININE (BEAKER) 0.60 mg/dL 0.57-1.25 (test code = 358) GLUCOSE RANDOM 105 mg/dL 70-105 (BEAKER) (test code = 652) CALCIUM (BEAKER) 8.2 mg/dL 8.4-10.2 L (test code = 697) EGFR (BEAKER) (test 117 mL/min/1.73 ESTIM ATED GFR IS code = 1092) sq m NOT ACCURATE CREATININE CLEARANCE IN PREDICTING GLOMERULAR FILTRATION RATE . ESTIMATED GFR I S NOT APPLICABLE FOR DIALYSIS PATIEN TS. CBC with platelet count + automated [id number] 04:49:00 Test Item Value Reference Range Interpretation Comments WBC (test code = 6690-2) 12.7 3.5- 10.5 K/L H RBC (test code = 789-8) 3.87 3.93- 5.22 M/L L MCHC (test code = 786-4) 33.9 32.2- 35.5 GM/DL Hematocrit (test code = 4544-3) 34.2 % 34.1-44.9 MCV (test code = 787-2) 88.4 fL 79.4-94.8 MCH (test code = 785-6) 30.0 pg 25.6-32.2 RDW (test code = 788-0) 12.9 % 11.7-14.4 Platelets (test code = 777-3) 195 150- 450 K/CU MM MPV (test code = 39570-9) 11.1 fL 9.4-12.3 % Neutros (test code = 429) 78 % % Lymphs (test code = 430) 12 % % Monos (test code = 431) 10 % % Eos (test code = 432) 0 % % Baso (test code = 437) 0 % # Neutros (test code = 670) 9.83 1.56- 6.13 K/L H # Lymphs (test code = 414) 1.48 1.18- 3.74 K/L # Monos (test code = 415) 1.32 0.24- 0.36 K/L H # Eos (test code = 416) 0.00 0.04- 0.36 K/L L # Baso (test code = 417) 0.02 0.01- 0.08 K/L Immature Granulocytes-Relative 0 % 0-1 (test code = 2801) Lab Interpretation (test code = Abnormal 27372-0) [facility] W/PLT COUNT & AUTO [id number] 04:49:00 Test Item Value Reference Range Interpretation Comments WHITE BLOOD CELL COUNT (BEAKER) 12.7 K/ L 3.5-10.5 H (test code = 775) RED BLOOD CELL COUNT (BEAKER) 3.87 M/ L 3.93-5.22 L (test code = 761) HEMOGLOBIN (BEAKER) (test code = 11.6 GM/DL 11.2-15.7 410) HEMATOCRIT (BEAKER) (test code = 34.2 % 34.1-44.9 411) MEAN CORPUSCULAR VOLUME (BEAKER) 88.4 fL 79.4-94.8 (test code = 753) MEAN CORPUSCULAR HEMOGLOBIN 30.0 pg 25.6-32.2 (BEAKER) (test code = 751) MEAN CORPUSCULAR HEMOGLOBIN CONC 33.9 GM/DL 32.2-35.5 (BEAKER) (test code = 752) RED CELL DISTRIBUTION WIDTH 12.9 % 11.7-14.4 (BEAKER) (test code = 412) PLATELET COUNT (BEAKER) (test 195 K/CU MM 150-450 code = 756) MEAN PLATELET VOLUME (BEAKER) 11.1 fL 9.4-12.3 (test code = 754) NEUTROPHILS RELATIVE PERCENT 78 % (BEAKER) (test code = 429) LYMPHOCYTES RELATIVE PERCENT 12 % (BEAKER) (test code = 430) MONOCYTES RELATIVE PERCENT 10 % (BEAKER) (test code = 431) EOSINOPHILS RELATIVE PERCENT 0 % (BEAKER) (test code = 432) BASOPHILS RELATIVE PERCENT 0 % (BEAKER) (test code = 437) NEUTROPHILS ABSOLUTE COUNT 9.83 K/ L 1.56-6.13 H (BEAKER) (test code = 670) LYMPHOCYTES ABSOLUTE COUNT 1.48 K/ L 1.18-3.74 (BEAKER) (test code = 414) MONOCYTES ABSOLUTE COUNT (BEAKER) 1.32 K/ L 0.24-0.36 H (test code = 415) EOSINOPHILS ABSOLUTE COUNT 0.00 K/ L 0.04-0.36 L (BEAKER) (test code = 416) BASOPHILS ABSOLUTE COUNT (BEAKER) 0.02 K/ L 0.01-0.08 (test code = 417) IMMATURE GRANULOCYTES-RELATIVE 0 % 0-1 PERCENT (BEAKER) (test code = 2801) SPIN/CONCENTRATION [id number] 01:24:00 Test Item Value Reference Range Interpretation Comments Concentration charged (test code = Done 2657) [facility] [id number] 01:24:00 Test Item Value Reference Range Interpretation Comments CONCENTRATION CHARGED (BEAKER) (test Done code = 2657) RAD, KNEE, 1 OR 2 VIEWS, [id number] 17:25:00AP and lateral views of the prosthetic kneeReason for exam:->Postop EvalShould this be performed at the bedside?->YesFINAL REPORT RIGHT KNEE RADIOGRAPHS - three views HISTORY: Postop eval COMPARISON: None DISCUSSION: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 No acute hardware failure. Associated postsurgical changes including intra- articular gas.No acute fractures. No joint malalignment.Diffuse soft tissue swelling. Scattered vascular calcifications. 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 No acute hardware failure. Associated postsurgical changes including intra-articular gas. 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 No acute hardware failure. Associated postsurgical changes including intra-articular gas.No acute fractures. No joint malalignment.Diffuse soft tissue swelling. Scattered vascular calcifications. 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 No acute hardware failure. Associated postsurgical changes including intra-articular gas. Signed: Renato Brown MDReport Verified Date/Time: 01/14/2020 17:25:10 Reading Location: [facility] Room [address] [place] [address] Electronically signedby: RENATO BROWN MD on 01/14/2020 05:25 [facility] [id number] 09:23:35Taco Sullivan MD - 01/14/2020 9:23 AM CDTPeripheral BlockPatient location during procedure: pre-procedureStart time: 01/14/2020 9:09 AMEnd time: 01/14/2020 9:14 AM Procedure Indication: procedure for pain, at surgeon's request and post-op pain managementPreanesthetic ChecklistCompleted: patient identified, pre-op evaluation, timeout performed, IV checked, risks and benefits discussed, monitors and equipment checked, anesthesia consent given, prep site dry prior to draping and maximum sterile ba rriers were used: cap, mask, sterile gown, sterile gloves, and large sterile sheetStaffingAnesthesiologist: Taco Sullivan MDPerformed: personally PrepPrep: chlorhexidineProcedures: sterile gloves, surgical mask, surgical hat, sterile technique and prep and sterile drape appliedPeripheral Nerve BlockPatient position: supinePatient monitoring: EKG, HR, BP and [id number]: rightBlock type: adductor canalInjection technique: catheterultrasound guided - prescan was completed prior to procedure and needle tip was visualized throughout the entire procedureultrasound image savedBlock Dose: ropivicaine and catheterInfiltration strength: 0.5 %Dose: 20 mLNeedleNeedle type: over the needle catheterNeedle gauge: 18 GNeedle length: 75mm.Needle Localization: anatomical landmarks and US guidedHydrodissection? yesDressing: Occlusive dressing applied in sterile fashion and Dermabond applied at the catheter insertion siteAssessmentInjection assessment: incremental injection and negative aspiration for heme LOC: Sedated with meaningful contactsupplemental oxygen used.no evidence of intravascular injection and no heart rate changeno paresthesiapatient had no immediate complications and patient tolerated the procedure wellAdditional NotesPatient tolerated well. No pain on injection or throughout procedure.[facility] RosaANESTHESIA SPINAL BLOCK 2020-01-14 09:22:28Taco Sullivan MD - 01/14/2020 9:22 AM CDTSpinal BlockPatient location during procedure: pre-procedureStart time: 01/14/2020 9:04 AMEnd time: 01/14/2020 9:08 AM Procedure Indication: procedure forpain, at surgeon's request, post-op pain management and primary anestheticStaffingAnesthesiologist: Taco Sullivan MDPerformed: personally Preanesthetic ChecklistCompleted: patient identified, pre-op evaluation, timeout performed, IV checked, risks and benefits discussed, monitors and equipment checked, anesthesia consent given, prep site dry prior to draping and maximum sterile barriers wereused: cap, mask, sterile gown, sterile gloves, and large sterile sheetPrepPrep: BetadineProcedures: sterile gloves, surgical mask, surgical hat, sterile technique and prep and sterile drape appliedSpinal BlockPatient position: sittingPatient monitoring: EKG, HR, BP and [id number]: midlineLevel: L3-4Injection technique: single-shotlandmark technique and landmark techniqueNeedleNeedle type: Other (valerie) Needle gauge: 25 GNeedle Length: 9 cmUsed introducerAssessmentSensory level: R21Pfraqp: cerebrospinal fluidpatient had no immediate complications, patient had adequate level of anesthesia and negative Allis clamp test and patient tolerated the procedure wellAdditional NotesPatient tolerated well. No pain on injection or throughout procedure.[facility] RosaType and screen, automated 2020-01-14 08:12:00 Test Item Value Reference Range Interpretation Comments ABO/RH AUTOMATED (BEAKER) (test O POSITIVE code = 2260) Ab Scrn (test code = 890-4) NEGATIVE [facility]
--- OUTSIDE RECORDS SUMMARY | 2020-04-29 10:44 | XMS REPORT | Summary of Care ---
:1940 Author Organization [facility] [place] [address] Care Team Providers Name Role Phone Bruce Sr MD, [facility] Primary Care Provider Reason for Visit Reason Comments Knee Pain RIGHT KNEE Consult, Test & Treat (Routine) Status Reason Specialty Diagnoses / Referred By Referred To Procedures Contact Contact Authorization Not Orthopedic Diagnoses RT Knee Pain Moreno Mayer, Needed Surgery Procedures FOLLOW UP OFFICE VISIT 20 MD Darrick Hollingsworth MD [address] [place], [place] [address] [address] [place], [place] Phone: [phone] Phone: Encounter Details Date Type Department Care Team Description 04/26/2020 Office Visit [facility], Knee Pain (RIGHT KNEE) Medicine Orthopedic MD Darrick Surgery [address] [place] [address] [address], [place] [id number] [phone] Allergies Active Allergy Reactions Severity Noted Date Comments Penicillins 12/29/2019 documented as of this encounter (statuses as of 04/26/2020) Medications Medication Sig Dispensed Refills Start Date End Date Status amlodipine (NORVASC) 5 TAKE 1 TABLET BY 0 10/07/2019 Active MG tablet MOUTH EVERY DAY LUMIGAN 0.01 % INSTILL 1 DROP 0 11/20/2019 Active ophthalmic solution INTO BOTH EYES AT BEDTIME triamcinolone (KENALOG) See Admin 0 11/18/2019 Active 0.1 % cream Instructions. hydrocodone-acetaminoph Take 1 Tab by 30 Tab 0 01/13/2020 Active en (NORCO) 10-325 MG mouth every 8 per tablet hours as needed for Pain. atorvastatin (LIPITOR) Take 20 mg by 0 Active 20 MG tablet mouth. PSYLLIUM OR Take 1 Packet by 0 A ctive mouth. ibuprofen (MOTRIN) 600 Take 1 Tab by 60 Tab 1 02/02/2020 Active MG tabletIndications: mouth every 6 Status post revision of hours as needed total replacement of for Pain. right knee Calcium Carbonate 600 Take 200 mg by 0 Active MG TABS mouth. documented as of this encounter (statuses as of 04/26/2020) Active Problems No known active problemsdocumented as of this encounter (statuses as of 04/26/2020) Social History Tobacco Use Types Packs/Day Years Used Date Never Smoker Smokeless Tobacco: Never Used Alcohol Use Drinks/Week oz/Week Comments Never Alcohol Habits Answer Date Recorded How often do you have a drink containing alcohol? Never 12/29/2019 How many drinks containing alcohol do you have on a typical Not asked day when you are drinking? How often do you have six or more drinks on one occasion? 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 She underwent revision R TKA on 01/14/2020 due to aseptic loosening of her previous implant. She has been doing well since that time. She is now 3 months post op. Her only complaint today is some pain in her mid tibia around the area where tibial stem ends. Complete review of systems is negative except as the noted above. Past Medical History: Diagnosis Date Arthritis Cataracts, bilateral High cholesterol Hypertension Past Surgical History: Procedure Laterality Date HX FOOT SURGERY HX HYSTERECTOMY HX TOTAL KNEE REPLACEMENT Outpatient Medications Prior to Visit Medication Sig Dispense Refill amlodipine TAKE 1 TABLET BY MOUTH EVERY DAY atorvastatin Take 20 mg by mouth. Calcium Carbonate Take 200 mg by mouth. hydrocodone-acetaminophen Take 1 Tab by mouth every 8 hours as needed for Pain. 30 Tab 0 ibuprofen Take 1 Tab by mouth every 6 hours as needed for Pain. 60 Tab 1 Lumigan INSTILL 1 DROP INTO BOTH EYES AT BEDTIME PSYLLIUM OR Take 1 Packet by mouth. triamcinolone See Admin Instructions. No facility-administered medications prior to visit. Allergies Allergen Reactions Penicillins Assessment: Constitutional: BP 172/73 (BP Location: right arm, Patient Position: Sitting, Cuff Size: regular) | Pulse 72 | Ht 5' 5" (1.651 m) | Wt 162 lb (73.5 kg) | BMI 26.96 kg/m Psych: she is alert and oriented to person, place and time. Mood and affect are appropriate. Musculoskeletal: she ambulates with a normal gait without use of any assistive devices. Knee exam: Right knee has a well healed anterior knee incision. Moderate effusion noted. Normal patellofemoral tracking. Range of motion is 0-100 degrees. no laxity with varus or valgus stressing. Cardiovascular: Dorsalis pedis and posterior tibialis pulses are palpable. Capillary refill is <3 seconds. Lower extremity is soft and compressible. no evidence of edema or venous stasis. Neuro: Sensation is intact to light touch. 4/5 quadriceps strength. 4/5 abductor strength. No evidence of any muscle atrophy. Skin: Skin is intact, warm, without discoloration and without wounds. Imagin Views of the right knee was reviewed and reveals stable revision total knee components in good position. No signs of loosening or subsidence. Imaging was reviewed by myself with the patient. Impression/Plan: Orders Placed This Encounter Procedures XR KNEE RIGHT AP, LAT, BOTH OBLIQUES ROOM 17 NWC Standing Status: Future Number of Occurrences: 1 Standing Expiration Date: 11/24/2020 ORT - XR KNEE RIGHT 4V (CHARGE ONLY) Assessment: 79 yo female s/p revision R TKA on 01/14/2020 Recommendations: The patient is doing well over all. We informed her that the tibia pain that she isfeeling from the tip over her tibial stem can take up to a year to resolve. She was instructed to continue activities as tolerated and she can f/u with Dr. Mayer at her 1 year post op appt. Tejinder Herrera MD Fellow Adult Reconstruction arrick Mayer MD - 04/26/2020 9:10 AM CSTTeaching Physician Attestation I personally interviewed and examined the patient and I agree with the assessment and plan as document by the resident . documented in this encounter Plan of Treatment Name Type Priority Associated Diagnoses Order S chedule ORT - XR KNEE RIGHT HI Charge Routine Status post revision of Ordered: 04/26/2020 4V (CHARGE ONLY) total replacement of rig ht knee Chronic pain of right knee Mechanical loosening of internal right knee prosthetic joint, subsequent encounter Health Maintenance Due Date Last Done Comments TETANUS SHOT (ADULT) 08/29/1954 BMI FOLLOW UP PLAN 08/29/1957 ZOSTER VACCINE (1 of 2) 08/29/1989 OSTEOPOROSIS SCREENING 08/29/2004 PNEUMOVAX >=65 (PPSV23) 08/29/2004 MEDICARE AWV (Initial) 06/11/2018 FALL SCREEN 02/25/2021 02/26/2020 FLU VACCINE > 6 MONTHS Discontinued HPV VACCINE Aged Out No longer eligib le based on patient's age to complete this topic documented as of this encounter Results XR KNEE RIGHT AP, LAT, BOTH OBLIQUES (04/26/2020 9:48 AM MACHINE BUILDER) Specimen Narrative Performed At For result, please reference physician's note on the c orresponding date. documented in this encounter Visit Diagnoses Diagnosis Status post revision of total replacemen t of right knee - Primary Chronic pain of right knee Mechanical loosening of internal right k nee prosthetic joint, subsequent encounter documented in this encounter Insurance Payer Benefit Plan Subscriber ID Effective Dates Phone Address Type / Group [employer] CHOICE [id number] 2018-[address] Medicare HEALTHCARE [place] [address] documented as of this encounter
--- OUTSIDE RECORDS SUMMARY | 2020-04-29 10:44 | XMS REPORT | Summary of Care ---
:1940 Author Organization [facility] [place] [address] Care Team Providers Name Role Phone Oscar Barrera MD Primary Care Provider Reason for Visit Reason Comments Post-op Follow-up Encounter Details Date Type Department Care Team Description 02/26/2020 Office Visit [facility], Post-op [facility]- Medicine Orthopedic MD Darrick Surgery [address] [facility] [address], [place] [address] [place] [address] [phone] Allergies Active Allergy Reactions Severity Noted Date Comments Penicillins 12/29/2019 documented as of this encounter (statuses as of 02/26/2020) Medications Medication Sig Dispensed Refills Start Date End Date Status amlodipine (NORVASC) TAKE 1 TABLET 0 10/07/2019 Active 5 MG tablet BY MOUTH EVERY DAY LUMIGAN 0.01 % INSTILL 1 0 11/20/2019 Acti ve ophthalmic solution DROP INTO BOTH EYES AT BEDTIME triamcinolone See Admin 0 11/18/2019 Activ e (KENALOG) 0.1 % Instructions. cream hydrocodone-acetamin Take 1 Tab by 30 Tab 0 01/13/2020 Active ophen (NORCO) 10-325 mouth every 8 MG per tablet hours as needed for Pain. atorvastatin Take 20 mg by 0 Act ernst (LIPITOR) 20 MG mouth. tablet PSYLLIUM OR Take 1 Packet 0 Acti ve by mouth. ibuprofen (MOTRIN) Take 1 Tab by 60 Tab 1 02/02/2020 Active 600 MG mouth every 6 tabletIndications: hours as Status post revision needed for of total replacement Pain. of right knee Levocetirizine TAKE 1 TABLET 0 12/15/2019 02/26/20 Discontinued Dihydrochloride 5 MG BY MOUTH 20 (*Temporary TABS EVERYDAY AT prescrip tion) BEDTIME Zzyxpxlik-Lafokkxn-S TAKE 10 ML BY 0 12/08/201902/09 Discontinued M 30-2-10 MG/5ML MOUTH 4 TIMES 20 (*Temporary SYRP A DAY prescripti on) NEEDED Cholecalciferol (D3 Take by 0 02/26/20 Discontinued HIGH POTENCY) 50 MCG mouth. 20 (*Temporary (1999) CAPS presc ription) documented as of this encounter (statuses as of 02/26/2020) Active Problems No known active problemsdocumented as of this encounter (statuses as of 02/26/2020) Social History Tobacco Use Types Packs/Day Years [...] Sign Reading Time Taken Comments Blood Pressure - - Pulse - - Temperature - - Respiratory Rate - - Oxygen Saturation - - Inhaled Oxygen Concentration - - Weight 73.5 kg (162 lb) 02/26/2020 10:24 AM CDT Height 165.1 cm (5' 5") 02/26/2020 10:24 AM CDT Body Mass Index 26.96 02/26/2020 10:24 AM CDT documented in this encounter Progress Notes Darrick Mayer MD - 02/26/2020 10:20 AM CDTHistory of present illness: The patient returns for a recheck. She is now 6 weeks status post righttotal knee revision. She continues to do extremely well. She will be finishing her physical therapy tomorrow. She is ambulating without supportive devices. She has absolutely no complaints of pain. Overall she is extremely happy with her results. Physical examination: Her surgical incision is well healed. Her range of motion is from 0-120. Her patella tracks centrally. She is neurovascularly intact distally. Radiographs: Films of her knee demonstrate a well fixed right total knee revision. Impression: Doing very well 6 weeks following right total knee revision. Recommendations: At this point, the patient should continue to progress with her activities as tolerated. She should return for a recheck with x-rays next January. 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 She can contact us at any time if that becomes symptomatic. All of her questions were answered today. documented in this encounter Plan of Treatment Name Type Priority Associated Diagnoses Date/Ti me XR KNEE RIGHT AP, LAT, Imaging Routine Status post revisi on of 02/26/2020 10:26 AM BOTH OBLIQUES total replacement of CDT right knee Name Type Priority Associated Diagnoses Order S chedule XR KNEE RIGHT AP, Imaging Routine Status post revision of 1 Occurrences starting LAT, BOTH OBLIQUES total replacement of 0 02/26/2020 until right knee 09/25/2020 ORT - XR KNEE RIGHT RI Charge Routine Status post revision of Ordered: 02/26/2020 4V (CHARGE ONLY) total replacement of right knee Health Maintenance Due Date Last Done Comments TETANUS SHOT (ADULT) 08/29/1954 BMI FOLLOW UP PLAN 08/29/1957 ZOSTER VACCINE (1 of 2) 08/29/1989 OSTEOPOROSIS SCREENING 08/29/2004 PNEUMOVAX >=65 (PPSV23) 08/29/2004 MEDICARE AWV (Initial) 06/11/2018 FLU VACCINE > 6 MONTHS 01/10/2020 FALL SCREEN 01/28/2021 02/26/2020 documented as of this encounter Results Not on filedocumented in this encounter Visit Diagnoses Diagnosis 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
--- NOTE | 2020-04-29 11:44 | RAD REPORT ---
EXAM DESCRIPTION: CT - Head Brain Wo Cont - 04/29/2020 11:29 am CLINICAL HISTORY: HEADACHE COMPARISON: Head Brain Wo Cont dated 09/12/2016 TECHNIQUE: Axial 5 mm thick images of the head were obtained without IV contrast. All CT scans are performed using dose optimization technique as appropriate and may include automated exposure control or mA/KV adjustment according to patient size. FINDINGS: No intracranial hemorrhage, mass, edema or shift of mid-line structures. No acute cortical based infarction. Patient has very little atrophy for age. Little or no chronic ischemic changes daphney ntifiable. Patient does have bilateral physiologic basal ganglia calculi. Arterial tree calcification s are present. No abnormal extra-axial fluid collections. Ventricles are normal. Mastoid air cells and visualized portions of the paranasal sinuses are clear. No acute bony findings. IMPRESSION: Negative non-contrast CT head examination for acute or significant finding.
--- NOTE | 2020-04-29 11:57 | ER ---
Nurse's Notes [facility] Name: Bo Boudreaux Age: 79 yrs Sex: Female : 1940 Arrival Date: 04/29/2020 Time: 10:40 Bed 14 Private MD: Oscar Barrera V Diagnosis: Essential (primary) hypertension;Acute sinusitis Presentation: 04/29 11:07 Chief complaint: Patient states: I went to Dr. Barrera yesterday and my blood pressure iw was high and then i started having headaches and they havent gone away. Coronavirus screen: Client denies travel out of the [place] in the last 14 days. Ebola Screen: Patient negative for fever greater than or equal to 101.5 degrees Fahrenheit, and additional compatible Ebola Virus Disease symptoms. Initial Sepsis Screen: Does the patient meet any 2 criteria? No. Patient's initial sepsis screen is negative. Does the patient have a suspected source of infection? No. Patient's initial sepsis screen is negative. Risk Assessment: Do you want to hurt yourself or someone else? Patient reports no desire to harm self or others. Onset of symptoms was April 28, 2020. 11:07 Method Of Arrival: Ambulatory iw 11:07 Acuity: JORJE 4 iw Triage Assessment: 11:14 Headache History: The patient has had previous headaches and this one is similar to iw previous episodes. General: Appears in no apparent distress. comfortable, well groomed, well developed, well nourished, Behavior is calm, cooperative, appropriate for age. Pain: Complains of pain in forehead Pain does not radiate. Pain currently is 4 out of 10 on a pain scale. Pain began 1 day ago. Is intermittent, Also complains of no other associated symptoms. EENT: No deficits noted. No signs and/or symptoms were reported regarding the EENT system. Neuro: Level of Consciousness is awake, alert, obeys commands, Oriented to person, place, time, situation, Day Camp Counselor are equal bilaterally Speech is normal, Facial symmetry appears normal, Pupils are PERRLA. Cardiovascular: Denies chest pain, shortness of breath, Heart tones S1 S2 present Chest pain is denied. Respiratory: No deficits noted. GI: No deficits noted. No signs and/or symptoms were reported involving the gastrointestinal system. : No deficits noted. No signs and/or symptoms were reported regarding the genitourinary system. Derm: No deficits noted. No signs and/or symptoms reported regarding the dermatologic system. Musculoskeletal: No deficits noted. No signs and/or symptoms reported regarding the musculoskeletal system. Historical: - Allergies: 11:14 PENICILLINS; iw - Home Meds: 11:14 amlodipine 10 mg oral tab 1 tab once daily [Active]; spironolacton-hydrochlorothiaz iw 25-25 mg Oral tab 1 tab once daily [Active]; - PMHx: 11:14 Hyperlipidemia; Hypertension; iw - PSHx: 11:14 Knee surgery; Hysterectomy; iw - Immunization history:: Adult Immunizations up to date, Flu vaccine is up to date. Vaccine Information Sheet provided pneumococcal vaccine. - Social history:: Smoking status: Patient/guardian denies using. - Family history:: not pertinent. - Code Status:: unknown. Screenin:15 Abuse screen: Denies threats or abuse. Denies injuries from another. Nutritional ca1 screening: No deficits noted. Tuberculosis screening: No symptoms or risk factors identified. Fall Risk None identified. Assessment: 11:15 General: Appears in no apparent distress. comfortable, Behavior is calm, cooperative, ca1 appropriate for age. Pain: Complains of pain in face and forehead Pain currently is 8 out of 10 on a pain scale. Pain began weeks ago. Neuro: Level of Consciousness is awake, alert, obeys commands, Oriented to person, place, time, situation. Cardiovascular: Heart tones S1 S2 present Capillary refill < 3 seconds Patient's skin is warm and dry. Respiratory: Airway is patent Respiratory effort is even, unlabored, Respiratory pattern is regular, symmetrical, Breath sounds are clear bilaterally. GI: Abdomen is flat, non-distended, Bowel sounds present X 4 quads. Abd is soft and non tender X 4 quads. : No signs and/or symptoms were reported regarding the genitourinary system. EENT: No signs and/or symptoms were reported regarding the EENT system. Derm: Skin is intact, is healthy with good turgor, Skin is pink, warm \T\ dry. Musculoskeletal: Circulation, motion, and sensation intact. Capillary refill < 3 seconds. 12:07 Reassessment: Patient appears in no apparent distress at this time. Patient is alert, ca1 oriented x 3, equal unlabored respirations, skin warm/dry/pink. Vital Signs: 11:07 BP 139 / 71; Pulse 74; Resp 18; Temp 98.1(TE); Pulse Ox 100% on R/A; Weight 74.84 kg iw (R); Height 5 ft. 5 in. (165.10 cm); Pain 4/10; 12:07 BP 129 / 86; Pulse 71; Resp 16 S; Pulse Ox 100% on R/A; ca1 11:07 Body Mass Index 27.46 (74.84 kg, 165.10 cm) iw Vincent Coma Score: 12:19 Eye Response: spontaneous(4). Verbal Response: oriented(5). Motor Response: obeys kb commands(6). Total: 15. ED Course: 10:40 Patient arrived in ED. as 10:40 Oscar Barrera MD is Private Physician. as 10:59 Yasmin Collado RN is Primary Nurse. ca1 11:03 Jada Su [facility]-C [facility]. kb 11:03 Alex Shelley MD is Attending Physician. kb 11:10 Triage completed. iw 11:14 Arm band placed on right wrist. iw 11:15 Patient has correct armband on for positive identification. Bed in low position. Call ca1 light in reach. Side rails up X 1. Pulse ox on. NIBP on. Warm blanket given. 11:29 CT Head Brain wo Cont In Process Unspecified. EDMS 11:41 CT completed. Patient tolerated procedure well. Patient moved back from CT. sj 12:08 No provider procedures requiring assistance completed. Patient did not have IV access ca1 during this emergency room visit. Administered Medications: No medications were administered Outcome: 11:57 Discharge ordered by . kb 12:08 Discharged to home ambulatory. ca1 12:08 Condition: stable 12:08 Discharge instructions given to patient, Instructed on discharge instructions, follow up and referral plans. Demonstrated understanding of instructions, follow-up care. 12:08 Patient left the ED. ca1 Signatures: Dispatcher [employer] EDMS Jada Su FNP-C FNP-Ckb Jones, Susan sj Martinez, Amelia as Williams, Irene, RN RN iw Yasmin Collado RN RN ca1
--- NOTE | 2020-04-29 11:57 | EDPHYS ---
Physician Documentation [facility] Name: Bo Boudreaux Age: 79 yrs Sex: Female : 1940 Arrival Date: 04/29/2020 Time: 10:40 Bed 14 Private MD: Oscar Barrera V ED Physician Alex Shelley HPI: 04/29 12:11 This 79 yrs old Black Female presents to ER via Ambulatory with complaints of Headache, kb Congestion. 12:11 The patient complains of pain to the forehead. The patient describes the headache as kb aching. Onset: The symptoms/episode began/occurred last week. Associated signs and symptoms: The patient has no apparent associated signs or symptoms. Severity of symptoms: At its worst the pain was mild, in the emergency department the pain is unchanged. Headache History: The patient has had previous headaches and this one is similar to previous episodes. The symptoms are alleviated by nothing. the symptoms are aggravated by nothing. The patient has experienced similar episodes in the past, a few times. The patient has been recently seen by a physician: the patient's primary care provider, yesterday. Pt reports frontal headache and congestion. States she had high blood pressure at the orthopedist the other day so she followed up with DR Barrera yesterday and was prescribed something new. States she used to get these headaches and would get prescribed flonase that would help, but she doesn't have any right now. . Historical: - Allergies: 11:14 PENICILLINS; iw - Home Meds: 11:14 amlodipine 10 mg oral tab 1 tab once daily [Active]; spironolacton-hydrochlorothiaz iw 25-25 mg Oral tab 1 tab once daily [Active]; - PMHx: 11:14 Hyperlipidemia; Hypertension; iw - PSHx: 11:14 Knee surgery; Hysterectomy; iw - Immunization history:: Adult Immunizations up to date, Flu vaccine is up to date. Vaccine Information Sheet provided pneumococcal vaccine. - Social history:: Smoking status: Patient/guardian denies using. - Family history:: not pertinent. - Code Status:: unknown. ROS: 12:13 Constitutional: Negative for fever, chills, and weight loss, Cardiovascular: Negative kb for chest pain, palpitations, and edema, Respiratory: Negative for shortness of breath, cough, wheezing, and pleuritic chest pain, Abdomen/GI: Negative for abdominal pain, nausea, vomiting, diarrhea, and constipation, MS/Extremity: Negative for injury and deformity, Skin: Negative for injury, rash, and discoloration. 12:13 ENT: Positive for sinus congestion. 12:13 Neuro: Positive for headache. Exam: 12:19 Constitutional: This is a well developed, well nourished patient who is awake, alert, kb and in no acute distress. Head/Face: Normocephalic, atraumatic. ENT: Nares patent. No nasal discharge, no septal abnormalities noted. Tympanic membranes are normal and external auditory canals are clear. Oropharynx with no redness, swelling, or masses, exudates, or evidence of obstruction, uvula midline. Mucous membranes moist. Chest/axilla: Normal chest wall appearance and motion. Nontender with no deformity. No lesions are appreciated. Cardiovascular: Regular rate and rhythm with a normal S1 and S2. No gallops, murmurs, or rubs. Normal PMI, no JVD. No pulse deficits. Respiratory: Lungs have equal breath sounds bilaterally, clear to auscultation and percussion. No rales, rhonchi or wheezes noted. No increased work of breathing, no retractions or nasal flaring. Abdomen/GI: Soft, non-tender, with normal bowel sounds. No distension or tympany. No guarding or rebound. No evidence of tenderness throughout. Skin: Warm, dry with normal turgor. Normal color with no rashes, no lesions, and no evidence of cellulitis. MS/ Extremity: Pulses equal, no cyanosis. Neurovascular intact. Full, normal range of motion. Neuro: Awake and alert, GCS 15, oriented to person, place, time, and situation. Cranial nerves II-XII grossly intact. Motor strength 5/5 in all extremities. Sensory grossly intact. Cerebellar exam normal. Normal gait. 12:19 Head/face: Sinus tenderness, that is mild, that is moderate, is located over the right frontal sinus and left frontal sinus. Vital Signs: 11:07 BP 139 / 71; Pulse 74; Resp 18; Temp 98.1(TE); Pulse Ox 100% on R/A; Weight 74.84 kg iw (R); Height 5 ft. 5 in. (165.10 cm); Pain 4/10; 12:07 BP 129 / 86; Pulse 71; Resp 16 S; Pulse Ox 100% on R/A; ca1 11:07 Body Mass Index 27.46 (74.84 kg, 165.10 cm) iw [place] Coma Score: 12:19 Eye Response: spontaneous(4). Verbal Response: oriented(5). Motor Response: obeys kb commands(6). Total: 15. MDM: 11:04 Patient medically screened. kb 12:19 Data reviewed: vital signs, nurses notes. Data interpreted: Pulse oximetry: on room air kb is 100 %. Interpretation: normal. Counseling: I had a detailed discussion with the patient and/or guardian regarding: the historical points, exam findings, and any diagnostic results supporting the discharge/admit diagnosis, radiology results, the need for outpatient follow up, a family practitioner, to return to the emergency department if symptoms worsen or persist or if there are any questions or concerns that arise at home. 04/29 11:17 Order name: CT Head Brain wo Cont; Complete Time: 11:47 kb Administered Medications: No medications were administered Disposition: 13:06 Co-signature as Attending Physician, Alex Shelley MD I agree with the assessment and adama plan of care. Disposition: 04/29/20 11:57 Discharged to Home. Impression: Essential (primary) hypertension, Acute sinusitis. - Condition is Stable. - Discharge Instructions: Sinusitis, Adult, [id number], Hypertension, [id number]. - Medication Reconciliation Form, Thank You Letter, Antibiotic Education, Prescription Opioid Use form. - Follow up: Emergency Department; When: As needed; Reason: Worsening of condition. Follow up: Private Physician; When: 2 - 3 days; Reason: Recheck today's complaints, Continuance of care, Re-evaluation by your physician. Signatures: Dispatcher [employer] Jada Alvarez, TOYS INSPECTOR-C ZHANNA-Alex Davidson MD MD cha Williams, Irene, RN RN iw Acob, Cheryl, RN RN ca1 Corrections: (The following items were deleted from the chart) 12:08 11:57 04/29/2020 11:57 Discharged to Home. Impression: Essential (primary) ca1 hypertension; Acute sinusitis. Condition is Stable. Forms are Medication Reconciliation Form, Thank You Letter, Antibiotic Education, Prescription Opioid Use. Follow up: Emergency Department; When: As needed; Reason: Worsening of condition. Follow up: Private Physician; When: 2 - 3 days; Reason: Recheck today's complaints, Continuance of care, Re-evaluation by your physician. kb
[2020-04-29 19:44] VITALS: TEMP 98.1; O2SAT 100
[2020-04-29 19:46] VITALS: BP 129/86
== END 2020-04-29 12:08 | disposition home or self-care (01) ==
LOC: ER 10:37
DX: J01.90 Acute sinusitis, unspecified (principal); I10 Essential (primary) hypertension; E78.5 Hyperlipidemia, unspecified; Z88.0 Allergy status to penicillin
CPT/HCPCS: 70450; 99284

== ENCOUNTER 2020-08-12 14:08 | Emergency (ER) | payer OTHER ==
--- OUTSIDE RECORDS SUMMARY | 2020-08-12 14:14 | XMS REPORT | Continuity of Care Document ---
:1940 Author Organization [facility] t Address [address] [place] [address] [place] [address] Care Team Providers Name Role Phone Sujit Barrerablancaadamadonato Primary Care Physician Moreno HURD Attending Clinician Ishan WRIGHT, George Attending Clinician LOUISE VICK Attending Clinician Unavailable Moreno HURD, Louise Attending Clinician Lay Hooks Attending Clinician Cordell Sullivan MD Attending Clinician Meliza Campos Attending Clinician Trent Attending Clinician Mike Matthews Attending Clinician VISIT, [facility] MAMMO Attending Clinician Unavailable VISIT, [facility] XRAY Attending Clinician Unavailable Darci Matos Attending Clinician Espinoza Attending Clinician Kailey Rosario Attending Clinician Joseph Thrasher Attending Clinician Mani Mathur Attending Clinician VISIT, [facility] DEXA Attending Clinician Unavailable Mahesh Willis Attending Clinician Hira Leiva Attending Clinician LOUISE VICK Admitting Clinician Unavailable Payers Payer Name Policy Type Policy Effective Date Expiration Date Sour ce Number HUMANA - MEDICARE [id number] [address] [facility]GD CAREHUMANA 00:00:00 - Medical MEDICARE Center [id number] 019-PresentMaps Contracted HUMANA - MGD [id number] [address] [facility] CAREHUMANA HMO 00:00:00 - Medical [id number] Center 019-PresentHMO/PO S Problems Condition Condition Condition Status Onset Resolution Last Treating Co mments Source Name Details Category Date Date Treatment Clinician Date 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 [facility], [facility] Edema Problem Active 2019-11-27 Memor ia (finding) 01-21 21:25:13 l Edema 00:00: Dariel (finding) 00 Active 01/21/2013 Problem 11/27/2019 Data migrated from [employer] on 11/07/14. [facility], [facility] Hypertensi Problem Active 2017-06-18 M emoria ve episode 01-21 03:07:06 l (disorder) 00:00: Berhane ryan Hypertensi 00 ve episode (disorder) Active 01/21/2013 Problem 06/18/2017 Data migrated from [employer] on 11/07/14. Medical Group, [facility] Hyperlipid Problem Active 2016-07-24 M emoria emia 01-21 02:33:04 l (disorder) 00:00: Berhane ryan Hyperlipid 00 emia (disorder) Active 01/21/2013 Problem 07/24/2016 Data migrated from [employer] on 12/16/14.Ruslan a migrated from [employer] on 11/07/14. [facility] Diverticul Problem Active 2019-11-27 M emoria ar disease 01-02 21:25:13 l of colon 00:00: Dariel (disorder) Diverticul 00 ar disease of colon (disorder) Active 01/02/2013 Problem 11/27/2019 Data migrated from [employer] on 11/07/14. [facility], [facility] Internal Problem Active 2019-11-27 Mem oria hemorrhoid 01-02 21:25:13 l s Internal 00:00: Berhane ryan (disorder) hemorrhoid 00 s (disorder) Active 01/02/2013 Problem 11/27/2019 Data migrated from [employer] on 11/07/14. [facility], [facility] Osteoarthr Problem Active 2011-062019-11-27 M emoria itis 08-08 21:25:13 l (disorder) 00:00: Berhane ryan Osteoarthr 00 itis (disorder) Active 06/07/2012 Problem 11/27/2019 Data migrated from [employer] on 11/07/14. [facility] Bleeding Problem Active 2019-11-27 Mem oria from nose 21:25:13 l (finding) Bleeding Her hawk from nose (finding) Active Problem 11/27/2019 Medical Group, [facility] Cervical Problem Active 2019-11-27 Mem oria spondylosi 21:25:13 l s Cervical Berhane n (disorder) spondylosi s (disorder) Active Problem 11/27/2019 [facility], [facility] Gallbladde Problem Active 2019-11-27 M emoria r calculus 21:25:13 l (disorder) Berhane n Gallbladde r calculus (disorder) Active Problem 11/27/2019 [facility], [facility] Degenerati Problem Active 2019-11-27 M emoria on of 21:25:13 l cervical Dariel interverte Degenerati bral disc on of (disorder) cervical interverte bral disc (disorder) Active Problem 11/27/2019 [facility], [facility] Drug Problem Active 2019-11-27 Memor ia therapy 21:25:13 l finding Drug Dariel (finding) therapy finding (finding) Active Problem 11/27/2019 [facility], [facility] 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 21:25:13 l (disorder) Berhane n Dystrophy of vulva (disorder) Active Problem 11/27/2019 [facility], [facility] Eczema Problem Active 2019-11-27 Memor ia (disorder) 21:25:13 l Eczema Dariel (disorder) Active Problem 11/27/2019 Medical Group, [facility] Finding of Problem Active 2019-11-27 M emoria body mass 21:25:13 l index Finding Dariel (finding) of body mass index (finding) Active Problem 11/27/2019 [facility] 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 21:25:13 l ia [place] (finding) Hypergamma globulinem ia (finding) Active Problem 11/27/2019 [facility] Hyperglyce Problem Active 2019-11-27 M emoria raza 21:25:13 l (disorder) Berhane n Hyperglyce raza (disorder) Active Problem 11/27/2019 Medical Group, [facility] Lesion of Problem Active 2019-11-27 Me moria liver 21:25:13 l (finding) Lesion Jodi nn of liver (finding) Active Problem 11/27/2019 [facility] Menopause Problem Active 2019-11-27 Me moria present 21:25:13 l (finding) Dariel Menopause present (finding) Active Problem 11/27/2019 [facility], [facility] Mixed Problem Active 2019-11-27 Memor ia hyperlipid 21:25:13 l emia Mixed Dariel (disorder) hyperlipid emia (disorder) Active Problem 11/27/2019 [facility] Group,[facility], [facility] Multiple Problem Active 2019-11-27 Mem oria nodules of 21:25:13 l lung Multiple Berhane n (finding) nodules of lung (finding) Active Problem 11/27/2019 [facility], [facility] Neck pain Problem Active 2019-11-27 Me moria (finding) 21:25:13 l Neck Dariel pain (finding) Active Problem 11/27/2019 [facility], [facility] Osteoporos Problem Active 2019-11-27 M emoria is 21:25:13 l (disorder) Berhane n Osteoporos is (disorder) Active Problem 11/27/2019 [facility], [facility] Atrophic Problem Active 2019-11-27 Mem oria vaginitis 21:25:13 l (disorder) Atrophic He rmann vaginitis (disorder) Active Problem 11/27/2019 [facility], [facility] Blood Problem Active 2019-11-27 Memor ia pressure 21:25:13 l alteration Blood Jodi nn (finding) pressure alteration (finding) Active Problem 11/27/2019 Medical Group Osteopenia Problem Active 2017-06-18 M emoria (disorder) 03:07:06 l [place] Osteopenia (disorder) Active Problem 06/18/2017 Medical Group, [facility] Body mass Problem Active 2016-07-24 Me moria index 02:33:04 l index Body Dariel 25-29 - mass index overweight index (finding) 25-29 - overweight (finding) Active Problem 07/24/2016 [facility] Right Problem Active 2016-07-10 Memor ia lower 03:43:11 l quadrant Right [place] pain lower (finding) quadrant pain (finding) Active Problem 07/10/2016 [facility] Hypertensi Problem Active 2019-11-27 M emoria ve 21:25:13 l disorder, [place] systemic Hypertensi arterial ve (disorder) disorder, systemic arterial (disorder) Active Problem 11/27/2019 Medical Group History of Past Illness Condition Condition Condition Status Onset Resolution Last Treating Co mments Source Name Details Category Date Date Treatment Clinician Date Other Problem 2018-2019-01-29 2019-01-29 M emoria abnormal 2-06 11:41:30 11:41:30 l and Other 06:20: Dariel inconclusi abnormal 36 ve and findings inconclusi on ve diagnostic findings imaging of on breast diagnostic imaging of breast 07/17/2018 01/29/2019 [facility] Asymptomat Problem 2018-2019-01-26 2019-01-26 Memoria ic 07-08 12:07:51 12:07:51 l menopausal 16:48: Berhane n state Asymptomat 00 ic menopausal state 07/08/2018 01/26/2019 Medical Group Postmenopa Problem 2018-2019-01-26 2019-01-26 Memoria usal 07-08 12:07:51 12:07:51 l atrophic 16:48: [place] vaginitis Postmenopa 00 usal atrophic vaginitis 07/08/2018 01/26/2019 Medical Group Leukoplaki Problem 2018-2019-01-26 2019-01-26 Memoria a of vulva 07-08 12:07:51 12:07:51 l 16:48: [place] Leukoplaki 00 a of vulva 07/08/2018 01/26/2019 [...] dicyclom Active Memori a ine<sup> ine<sup> l 2</sup> 2</sup> Dariel penicill penicill Active Memori a ins<sup> ins<sup> l 2</sup> 2</sup> Dariel Social History Social Habit Start Date Stop Date Quantity Comments Source History [facility] - Alcohol Std Drinks Medica Center History [facility] - Alcohol Binge Medical Carina ter Sex Assigned At [facility] Tobacco use and 2020-01-14 2020-01-14 Never used [facility] Kiersten kes - exposure 00:00:00 00:00:00 [facility] Alcohol intake 2020-01-14 2020-01-14 [facility] 00:[facility]:00 00:00:00 non-drinker of Medical Ce nter alcohol (finding) History [facility] 2020-01-07 2020-01-[address] [facility] - Alcohol Frequency 00:00:00 00:00:00 [facility] Social History 2018-08-01 2018-08-01 [facility] cary 14:27:23 14:27:23 Smoking Status Start Date Stop Date Source Never smoker [facility] Medications Ordered Filled Start Stop Current Ordering [...] 20 MG 10:54: daily. Medical tablet 21 [place] psyllium 2020-0 Yes 1{packe Take [address] [facility] (METAMUCIL) 8-06 t} packet by Norbert es - powder 10:54: mouth as Medical 21 needed. [place] cholecalcif 2020-0 Yes QD Take by [facility] geovanna, 8-06 [facility] - vitamin D3, 10:54: daily. Medi elmira 50 mcg 21 [place] (2,000 unit) Cap calcium 2020-0 Yes 200mg QD Take 200 [facility] carbonate 8-06 mg by [facility] - (OS-ELMIRA) 10:54: mouth Medical 600 mg 21 daily. [place] calcium (1,500 mg) Tab aspirin 81 2020-0 2020- No 81mg QD Take [address] MG EC 01-14- by mouth [facility] - tablet 09:26: 00:00 daily. Medical 47 :00 [place] levocetiriz 2020-[address] [facility] ine (XYZAL) 7-06 [facility] - 5 MG tablet 00:00: Medica l 00 [place] bimatoprost 2020-0 Yes INSTILL [address] (LUMIGAN) 6-11 DROP INTO [facility] - 0.01 % Drop 00:00: BOTH EYES M edical ophthalmic [address] solution triamcinolo 2020-[address] [facility] ne 6-09 [facility] - (KENALOG) 00:00: Medical 0.1 % 00 [place] topical cream amLODIPine 2020-0 Yes TAKE 1 [facility] (NORVASC) 5 4-28 TABLET BY Norbert es - MG tablet 00:00: MOUTH Medical 00 EVERY DAY [place] Calcium 600 2020-0 Yes 1 tab, PO, Memoria +D oral 4-22 Daily, # l tablet 16:09: 90 tab, 0 Berhane n 00 Refill(s) Vitamin D3 2020-0 Yes 1,000 Memori a 1000 intl 4-22 IntlUnit = l units oral 16:08: 1 cap, PO, H ermann capsule 00 Daily, # 100 cap, 0 Refill(s) atorvastati Yes = 1 tab, Me moria n 20 mg 4-20 PO, Daily, l oral tablet 17:28: # 90 tab, H ermann 30 Refill(s) 4, Pharmacy: [facility] #[id number] Dextrometho Yes 10 mL, PO, Memoria rphan 2-11 Q4H, # 120 l Hydrobromid 22:52: mL, 0 Jodi nn e 1 MG/ML / 00 Refill(s), Guaifenesin Pharmacy: 10 MG/ML [facility] #[id number] Solution azithromyci Yes 500 mg = 1 Memoria n 500 mg 1-07 tab, PO, l oral tablet 20:36: Daily, X 5 Dariel 00 day, # 5 tab, 0 Refill(s), Pharmacy: [facility] #[id number] omeprazole 2018-06 Yes 20 mg = 1 Me moria 20 mg oral 2-06 cap, PO, l delayed 16:30: Daily, 0 Berhane n release 00 Refill(s) capsule doxycycline 2018-06 Yes 100 mg = 1 Memoria hyclate 100 1-27 tab, PO, l MG Oral 16:30: Q12H [place] Tablet 00 Metronidazo 2018-06 Yes 500 mg = 1 Memoria le 500 MG 1-27 tab, PO, l Oral Tablet 16:30: Q12H, 0 Her hawk [Flagyl] 00 Refill(s) bismuth 2018-06 Yes 524 mg = 2 Vasile roberto subsalicyla 1-27 tab, CHEW, l te 262 MG 16:30: BID, 0 Berhane n Chewable 00 Refill(s) Tablet [Pepto-bism ol] Acetaminoph 2018-06 Yes 325 mg = 1 Memoria en 325 MG 0-17 cap, PO, l Oral 18:46: TID, # 21 [place] Capsule 30 cap, 0 [Tylenol] Refill(s), [id number] azithromyci 2018-06 Yes 500 mg = 1 Memoria n 500 mg 0-17 tab, PO, l oral tablet 18:46: Daily, X 5 [place] 06 day, # 5 tab, 0 Refill(s), Pharmacy: [facility] #[id number] Fluticasone 2018-06 Yes 1 spray, Me moria propionate 0-17 NASAL, l 0.05 18:45: BID, # 16 [place] MG/ACTUAT 12 gm, 0 Metered Refill(s), Dose Nasal Pharmacy: [place] [facility] [Flonase] #[id number] Fluticasone 2018-06 No 1 spray, Me moria propionate 0-17 NASAL, l 0.05 18:38: BID, # 16 [place] MG/ACTUAT 00 gm, 0 Metered Refill(s), Dose Nasal [facility] [place] [id number] Acetaminoph 2018-06 No 325 mg = 1 Memoria en 325 MG 0-17 cap, PO, l Oral 18:38: TID, # 21 Dariel Capsule 00 cap, 0 [Tylenol] Refill(s), [id number] azithromyci 2018-06 No 500 mg = 1 Memoria n 500 mg 0-17 tab, PO, l oral tablet 18:38: Daily, X 5 Dariel 00 day, # 5 tab, 0 Refill(s), [id number] Levofloxaci Yes 500 mg = 1 Memoria n 500 MG 7-24 tab, PO, l Oral Tablet 13:38: Q24H, X 7 H ermann [Levaquin] 00 day, # 7 tab, 0 Refill(s), [id number] Levofloxaci No 500 mg = 1 Memoria n 500 MG 1-29 tab, PO, l Oral Tablet 14:52: Q24H, X 7 H ermann [Levaquin] 00 day, # 7 tab, 0 Refill(s), [id number] Levofloxaci 2017-06 No 500 mg = 1 Memoria n 500 MG 0-18 tab, PO, l Oral Tablet 18:59: Q24H, X 10 Dariel [Levaquin] 00 day, # 10 tab, 0 Refill(s), [id number] Codeine No See Memoria Phosphate 2 9-25 Instructio l MG/ML / 21:35: ns, PRN [place] Guaifenesin 53 cough, 20 MG/ML 5-10 mL PO Oral Q6H prn Solution cough, # [Cheratussi 240 mL, 1 n] Refill(s) valacyclovi No 1 gm = 1 Me moria r 1000 MG 9-25 tab, PO, l Oral Tablet 21:35: ONCE, # 1 H ermann [Valtrex] 00 tab, 0 Refill(s), Pharmacy: [facility] #[id number] Hydrocortis No 1 appl, Mem oria one 25 9-05 TOP, BID, l MG/ML 20:06: X 14 day, [place] Topical 00 # 30 gm, 0 Cream Refill(s), Pharmacy: [facility] #[id number] baclofen 10 Yes See Memori a mg oral 4-16 Instructio l tablet 17:59: ns, # 90 [place] 43 tab, TAKE 1 TABLET BY MOUTH 3 TIMES A DAY NEEDED FOR SPASMS, Pharmacy: [facility] #[id number] baclofen 10 No See Memori a mg oral 3-13 Instructio l tablet 19:36: ns, # 90 Dariel 08 tab, TAKE 1 TABLET BY MOUTH 3 TIMES A DAY NEEDED FOR SPASMS, Pharmacy: [facility] #[id number] tramadol No 50 mg = 1 Vasile roberto hydrochlori 2-23 tab, PO, l de 50 MG 20:52: BID, X 10 [place] Oral Tablet 00 day, # 10 tab, 0 Refill(s) baclofen 10 No 10 mg = 1 M emoria mg oral 2-14 tab, PO, l tablet 20:01: TID, PRN Dariel 00 Spasms, # 90 tab, 0 Refill(s), Pharmacy: [facility] #[id number] Triamcinolo Yes See Memori a ne 1-18 Instructio l Acetonide 1 15:48: ns, apply H ermann MG/ML 00 small Topical amount to Cream affected area twice/day until symptoms resolved., # 60 gm, 1 Refill(s), Pharmacy: [facility] #[id number] atorvastati No 20 mg = 1 M emoria n 20 mg 1-11 tab, PO, l oral tablet 19:41: Daily, # He rmann 00 90 tab, 0 Refill(s), Pharmacy: [facility] #[id number] atorvastati Yes 20 mg = 1 M emoria n 20 mg 1-11 tab, PO, l oral tablet 19:40: Daily, # He rmann 15 90 tab, 5 Refill(s), Pharmacy: [facility] #[id number] amLODIPine Yes See Memoria 5 mg oral 1-04 Instructio l tablet 18:47: ns, TAKE 1 Jodi nn 05 TABLET BY MOUTH DAILY, # 90 tab, 1 Refill(s), Pharmacy: [facility] #[id number] levofloxaci Yes 500 mg = 1 Memoria n 500 mg 1-04 tab, PO, l oral tablet 14:44: Daily, X He rmann 00 10 day, # 10 tab, 0 Refill(s), Pharmacy: [facility] #[id number], DC the Zithromax order Codeine Yes See Memoria Phosphate 2 1-04 Instructio l MG/ML / 14:40: ns, PRN [place] Guaifenesin 00 cough, 20 MG/ML 5-10 mL PO Oral Q6H prn Solution cough, # [Cheratussi 240 mL, 1 n] Refill(s) {6 No See Memoria (Azithromyc 1-04 Instructio l in 250 MG 14:39: ns, Take 2 He rmann Oral Tablet 00 tablets by [Zithromax] mouth the ) } Pack first day [Z-PAKS] then 1 tablet by mouth days 2-5., X 5 day, # 6 tab, 0 Refill(s), Pharmacy: [facility] #[id number] Vital Signs Vital Name Observation Time Observation Value Comments Source Systolic blood 2020-01-15 08:04:00 136 mm[Hg] [facility] Diastolic blood 2020-01-15 08:04:00 65 mm[Hg] [facility] Heart rate 2020-01-15 08:04:00 77 /min [facility] Body temperature 2020-01-15 08:04:00 37.17 [facility] Respiratory rate 2020-01-15 08:04:00 16 /min [facility] Oxygen saturation in 2020-01-15 08:04:00 98 /min [facility] - Arterial blood by Medical Ce nter Pulse oximetry Body height 2020-01-14 05:50:00 165.1 cm [facility] Body weight 2020-01-14 05:50:00 77.7 kg [facility] BMI 2020-01-14 05:50:00 28.51 kg/m2 [facility] Height 2019-10-01 15:14:00 160.02 cm [facility] Dariel Weight 2019-10-01 15:14:00 Memorial Dariel BMI Calculated 2019-10-01 15:14:00 Memori al [place] Systolic (mm Hg) 2019-10-01 15:14:00 Vasile rial [place] Diastolic (mm Hg) 2019-10-01 15:14:00 Mem orial Dariel Heart Rate 2019-10-01 15:14:00 [facility] [place] Respitory Rate 2019-10-01 15:14:00 Memori al Dariel Temperature Oral (F) 2019-10-01 15:14:00 97.8 F [facility] Dariel Systolic (mm Hg) 2019-08-14 15:17:00 Vasile rial [place]iel Diastolic (mm Hg) 2019-08-14 15:17:00 Mem orial Dariel Heart Rate 2019-08-14 15:17:00 [facility] [place] Weight 2019-08-14 15:17:00 [facility] [place] Height 2019-07-22 22:18:00 160.02 cm [facility] [place] Weight 2019-07-22 22:18:00 [facility] Dariel BMI Calculated 2019-07-22 22:18:00 Memori al [place] Systolic (mm Hg) 2019-07-22 22:18:00 Vasile rial [place] Diastolic (mm Hg) 2019-07-22 22:18:00 Mem orial Dariel Heart Rate 2019-07-22 22:18:00 [facility] Dariel Temperature Oral (F) 2019-07-22 22:18:00 97.6 F [facility] [place] Systolic (mm Hg) 2019-06-17 19:58:00 Vasile rial [place] Diastolic (mm Hg) 2019-06-17 19:58:00 Mem orial Dariel Heart Rate 2019-06-17 19:58:00 [facility] [place] Respitory Rate 2019-06-17 19:58:00 Memori al [place]iel Height 2019-06-17 19:58:00 165.1 cm [facility] Dariel Weight 2019-06-17 19:58:00 [facility] Dariel BMI Calculated 2019-06-17 19:58:00 Memori al [place] Height 2019-05-16 16:27:00 160.02 cm [facility] Dariel Weight 2019-05-16 16:27:00 [facility] Dariel BMI Calculated 2019-05-16 16:27:00 Memori al [place] Systolic (mm Hg) 2019-05-16 16:27:00 Vasile rial [place] Diastolic (mm Hg) 2019-05-16 16:27:00 Mem orial [place] Heart Rate 2019-05-16 16:27:00 [facility] Dariel Temperature Oral (F) 2019-05-16 16:27:00 97.9 F [facility] [place] Height 2019-04-02 14:23:00 160.02 cm [facility] Dariel Systolic (mm Hg) 2019-04-02 14:23:00 Vasile rial [place]iel Diastolic (mm Hg) 2019-04-02 14:23:00 Mem orial Dariel Heart Rate 2019-04-02 14:23:00 [facility] [place]iel Respitory Rate 2019-04-02 14:23:00 Memori al [place] Temperature Oral (F) 2019-04-02 14:23:00 98.1 F [facility] [place] Weight 2019-04-02 14:23:00 [facility] Dariel BMI Calculated 2019-04-02 14:23:00 Memori al [place] Systolic (mm Hg) 2019-03-27 18:17:00 Vasile rial [place]iel Diastolic (mm Hg) 2019-03-27 18:17:00 Mem orial Dariel Heart Rate 2019-03-27 18:17:00 [facility] [place]iel Respitory Rate 2019-03-27 18:17:00 Memori al [place] Temperature Oral (F) 2019-03-27 18:17:00 98.3 F Memorial [place] Height 2019-03-27 18:17:00 165.1 cm [facility] Dariel Weight 2019-03-27 18:17:00 [facility] Dariel BMI Calculated 2019-03-27 18:17:00 Memori al [place] Systolic (mm Hg) 2019-02-27 14:53:00 Vasile rial [place]iel Diastolic (mm Hg) 2019-02-27 14:53:00 Mem orial [place] Heart Rate 2019-02-27 14:53:00 [facility] Dariel Weight 2019-02-27 14:53:00 [facility] [place] Systolic (mm Hg) 2019-01-01 13:09:00 Vasile rial [place] Diastolic (mm Hg) 2019-01-01 13:09:00 Mem orial Dariel Temperature Oral (F) 2019-01-01 13:09:00 98.0 F [facility] [place] Heart Rate 2019-01-01 13:09:00 [facility] [place] Weight 2019-01-01 13:09:00 [facility] Dariel BMI Calculated 2018-11-15 14:02:00 Memori al [place] Weight 2018-11-15 14:02:00 [facility] [place] Systolic (mm Hg) 2018-11-15 14:02:00 Vasile rial [place]iel Diastolic (mm Hg) 2018-11-15 14:02:00 Mem orial [place] Temperature Oral (F) 2018-11-15 14:02:00 97.6 F [facility] Dariel Heart Rate 2018-11-15 14:02:00 [facility] [place] Height 2018-11-15 14:02:00 160.02 cm [facility] [place] BMI Calculated 2018-09-23 15:26:00 Memori al [place] Weight 2018-09-23 15:26:00 Memorial [place] Height 2018-09-23 15:26:00 160.02 cm [facility] Dariel Temperature Oral (F) 2018-09-23 15:26:00 97.5 F [facility] [place] Heart Rate 2018-09-23 15:26:00 [facility] [place] Respitory Rate 2018-09-23 15:26:00 Memori al [place] Systolic (mm Hg) 2018-09-23 15:26:00 Vasile rial Dariel Diastolic (mm Hg) 2018-09-23 15:26:00 Mem orial Dariel Weight 2018-09-10 21:14:00 [facility] [place] Temperature Oral (F) 2018-09-10 21:14:00 97.6 F [facility] [place] Respitory Rate 2018-09-10 21:14:00 Memori al [place] Heart Rate 2018-09-10 21:14:00 [facility] [place]iel Systolic (mm Hg) 2018-09-10 21:14:00 Vasile rial [place] Diastolic (mm Hg) 2018-09-10 21:14:00 Mem orial Dariel Height 2018-08-01 14:26:00 160.02 cm [facility] Dariel Weight 2018-08-01 14:26:00 [facility] [place] BMI Calculated 2018-08-01 14:26:00 Memori al [place] Respitory Rate 2018-08-01 14:26:00 Memori al [place] Heart Rate 2018-08-01 14:26:00 [facility] [place]iel Systolic (mm Hg) 2018-08-01 14:26:00 Vasile rial [place] Diastolic (mm Hg) 2018-08-01 14:26:00 Mem orial [place] Systolic (mm Hg) 2018-07-09 14:06:00 Vasile rial [place] Diastolic (mm Hg) 2018-07-09 14:06:00 Mem orial [place] Heart Rate 2018-07-09 14:06:00 [facility] Dariel Temperature Oral (F) 2018-07-09 14:06:00 98.4 F [facility] [place] Weight 2018-07-09 14:06:00 [facility] [place] Systolic (mm Hg) 2018-07-08 16:29:00 Vasile rial [place]iel Diastolic (mm Hg) 2018-07-08 16:29:00 Mem orial [place] Heart Rate 2018-07-08 16:29:00 [facility] Dariel Height 2018-07-08 16:29:00 165.1 cm [facility] [place] Weight 2018-07-08 16:29:00 [facility] [place] BMI Calculated 2018-07-08 16:29:00 Memori al Dariel Weight 2018-05-16 15:56:00 [facility] [place] Respitory Rate 2018-05-16 15:56:00 Memori al [place] Temperature Oral (F) 2018-05-16 15:56:00 98.2 F [facility] Heart Rate 2018-05-16 15:56:00 [facility] Systolic (mm Hg) 2018-05-16 15:56:00 [facility] [place] Diastolic (mm Hg) 2018-05-16 15:56:00 [facility] [place] BMI Calculated 2018-03-28 18:21:00 [facility] Weight 2018-03-28 18:21:00 [facility] [place] Height 2018-03-28 18:21:00 160.02 cm [facility] Heart Rate 2018-03-28 18:21:00 [facility] Temperature Oral (F) 2018-03-28 18:21:00 98.2 F [facility] [place] Systolic (mm Hg) 2018-03-28 18:21:00 [facility] [place] Diastolic (mm Hg) 2018-03-28 18:21:00 [facility] [place] Weight 2018-03-25 14:36:00 [facility] [place] BMI Calculated 2018-03-25 14:36:00 [facility] [place] Height 2018-03-25 14:36:00 160.02 cm [facility] [place] Temperature Oral (F) 2018-03-25 14:36:00 97.8 F [facility] Heart Rate 2018-03-25 14:36:00 [facility] Respitory Rate 2018-03-25 14:36:00 [facility] Systolic (mm Hg) 2018-03-25 14:36:00 [facility] [place] Diastolic (mm Hg) 2018-03-25 14:36:00 [facility] BMI Calculated 2018-03-08 14:35:00 [facility] Weight 2018-03-08 14:35:00 [facility] [place] Heart Rate 2018-03-08 14:35:00 [facility] [place] Temperature Oral (F) 2018-03-08 14:35:00 97.8 F [facility] [place] Systolic (mm Hg) 2018-03-08 14:35:00 [facility] [place] Diastolic (mm Hg) 2018-03-08 14:35:00 [facility] Height 2018-03-08 14:35:00 165.1 cm [facility] Weight 2018-03-05 20:47:00 [facility] [place] Systolic (mm Hg) 2018-03-05 20:47:00 [facility] Diastolic (mm Hg) 2018-03-05 20:47:00 [facility] [place] Heart Rate 2018-03-05 20:47:00 [facility] Temperature Oral (F) 2018-03-05 20:47:00 98.3 F [facility] [place] Respitory Rate 2018-03-05 20:47:00 [facility] Height 2018-02-13 19:12:00 161.29 cm [facility] Temperature Oral (F) 2018-02-13 19:12:00 98.1 F [facility] [place] Heart Rate 2018-02-13 19:12:00 [facility] [place] Respitory Rate 2018-02-13 19:12:00 [facility] Systolic (mm Hg) 2018-02-13 19:12:00 [facility] Diastolic (mm Hg) 2018-02-13 19:12:00 [facility] [place] Weight 2018-02-13 19:12:00 [facility] BMI Calculated 2018-02-13 19:12:00 [facility] [place] Weight 2017-10-31 16:55:00 [facility] Height 2017-10-31 16:55:00 165.1 cm [facility] BMI Calculated 2017-10-31 16:55:00 [facility] [place] Heart Rate 2017-10-31 16:55:00 [facility] [place] Temperature Oral (F) 2017-10-31 16:55:00 98.8 F [facility] Systolic (mm Hg) 2017-10-31 16:55:00 [facility] Diastolic (mm Hg) 2017-10-31 16:55:00 [facility] [place] BMI Calculated 2017-09-19 14:28:00 [facility] Weight 2017-09-19 14:28:00 [facility] [place] Height 2017-09-19 14:28:00 162.56 cm [facility] [place] Systolic (mm Hg) 2017-09-19 14:28:00 [facility] [place] Diastolic (mm Hg) 2017-09-19 14:28:00 [facility] [place] Respitory Rate 2017-09-19 14:28:00 [facility] Heart Rate 2017-09-19 14:28:00 [facility] Temperature Oral (F) 2017-09-19 14:28:00 98.2 F [facility] [place] Weight 2017-08-28 20:25:00 [facility] [place] Heart Rate 2017-08-28 20:25:00 [facility] [place] Systolic (mm Hg) 2017-08-28 20:25:00 [facility] [place] Diastolic (mm Hg) 2017-08-28 20:25:00 [facility] Systolic (mm Hg) 2017-08-28 19:58:00 [facility] [place] Diastolic (mm Hg) 2017-08-28 19:58:00 [facility] Heart Rate 2017-08-28 19:58:00 [facility] [place] Weight 2017-08-28 19:58:00 [facility] [place] Weight 2017-08-03 20:19:00 [facility] [place] Temperature Oral (F) 2017-08-03 20:19:00 97.9 F [facility] [place] Systolic (mm Hg) 2017-08-03 20:19:00 [facility] [place] Diastolic (mm Hg) 2017-08-03 20:19:00 [facility] Heart Rate 2017-08-03 20:19:00 [facility] [place] Temperature Oral (F) 2017-07-25 19:39:00 97.4 F [facility] [place] Systolic (mm Hg) 2017-07-25 19:39:00 [facility] Diastolic (mm Hg) 2017-07-25 19:39:00 [facility] Heart Rate 2017-07-25 19:39:00 [facility] Weight 2017-07-25 19:39:00 [facility] Height 2017-06-28 15:25:00 165.1 cm [facility] Weight 2017-06-28 15:25:00 [facility] [place] BMI Calculated 2017-06-28 15:25:00 [facility] [place] Heart Rate 2017-06-28 15:25:00 [facility] [place] Systolic (mm Hg) 2017-06-28 15:25:00 [facility] Diastolic (mm Hg) 2017-06-28 15:25:00 [facility] [place] Temperature Oral (F) 2017-06-14 14:26:00 97.8 F [facility] Weight 2017-06-14 14:26:00 [facility] [place] Systolic (mm Hg) 2017-06-14 14:26:00 [facility] Diastolic (mm Hg) 2017-06-14 14:26:00 [facility] [place] Heart Rate 2017-06-14 14:26:00 [facility] [place] Weight 2017-04-27 15:20:00 [facility] [place] Height 2017-04-27 15:20:00 163.83 cm [facility] BMI Calculated 2017-04-27 15:20:00 [facility] [place] Systolic (mm Hg) 2017-04-27 15:20:00 [facility] Diastolic (mm Hg) 2017-04-27 15:20:00 [facility] [place] Temperature Oral (F) 2017-04-27 15:20:00 98.5 F [facility] Heart Rate 2017-04-27 15:20:00 [facility] Respitory Rate 2017-04-27 15:20:00 Harshad Guzman Procedures Procedure Date / Time Performed Performing Clinician [facility] RHYTHM STRIP - SCAN 2020-01-16 13:40:46 Provider, Carlos [facility] TRANSFUSION SERVICE 2020-01-15 18:03:43 Provider, Carlos [facility] - REPORT - SCAN [facility] CBC W/PLT COUNT & AUTO 2020-01-15 04:39:00 Darrick Vick [facility] - DIFFERENTIAL [facility] BASIC METABOLIC PANEL 2020-01-15 04:39:00 Darrick Vick [facility] - (7) [facility] XR KNEE RIGHT 1 OR 2 2020-01-14 12:57:00 Lior Liu [facility] TISSUE EXAM 2020-01-14 11:55:00 Darrick Vick [facility] [employer] CULTURE + SMEAR 2020-01-14 11:49:09 [facility] Vick [facility] - (NON-SPUTUM) [facility] ANAEROBIC CULTURE 2020-01-14 11:49:[address] [facility] FUNGUS CULTURE + SMEAR 2020-01-14 11:49:09 Darrick Vick [facility] SURGICALLY OBTAINED 2020-01-14 11:49:09 [facility] V[facility] - C[facility] + GRAM STAIN [facility] ter SPIN/CONCENTRATION 2020-01-14 11:49:00 Darrick Vick [facility] - CHARGE [facility] [employer] CULTURE + SMEAR 2020-01-14 11:46:11 [facility] V[facility] - (NON-SPUT[facility]) [facility] ANAEROBIC CULTURE 2020-01-14 11:46:[address] [facility] FUNGUS CULTURE + SMEAR 2020-01-14 11:46:11 Darrick Vick [facility] SURGICALLY OBTAINED 2020-01-14 11:46:11 [facility]rick Vick [facility] - CULTURE + GRAM STAIN [facility] ter AFB CULTURE + SMEAR 2020-01-14 11:44:39 Darrcik Vick [facility] - (NON-SPUTUM) [facility] ANAEROBIC CULTURE 2020-01-14 11:44:[address] [facility] FUNGUS CULTURE + SMEAR 2020-01-14 11:44:39 VickDarrick leon Chhaya [facility] SURGICALLY OBTAINED 2020-01-14 11:44:39 VickSaniaDarrick [facility] - CULTURE + GRAM STAIN [facility] ter ANESTHESIA PERIPHERAL 2020-01-14 09:23:35 Taco Sullivan [facility] BLOCK [facility] ANESTHESIA SPINAL BLOCK 2020-01-14 09:22:28 Taco Sullivan [facility] REVISION,TOTAL KNEE 2020-01-14 09:08:00 VickDarrick leon [facility] TYPE AND SCREEN, 2020-01-14 06:55:00 Lior Liu [facility] Mammogram 2018-07-08 06:00:00 [facility] Her hawk Cataract surgery 2018-06-24 06:00:00 [facility] rmann Removal impacted cerumen 2018-03-08 15:45:00 [facility] orial [facility] requiring instrumentation, unilateral Colonoscopy<sup>1</sup> 2016-07-19 06:00:00 [facility] Procedure on 2013-10-09 05:00:00 [facility] Her hawk wrist<sup>2</sup> Colonoscopy 2012-12-18 05:00:00 [facility] Her hawk CEIOL - Cataract 2011-02-13 05:00:00 [facility] rmann extraction and insertion of intraocular lens<sup>3</sup> Arthroscopy of 2010-06-11 00:00:00 [facility] Her hawk knee<sup>4</sup> CRIS BSO - Total 2000-06-11 00:00:00 [facility] Her hawk abdominal hysterectomy and bilateral salpingo-oophorectomy<mcknight p>5</sup> Bunionectomy<sup>6</sup> [facility] Pneumococcal [facility] vaccination<sup>7</sup> Rotator cuff [facility] [place] repair<sup>8</sup> Simple dental [facility] [place] extraction<sup>9</sup> Plan of Care Planned Activity Planned [...] 00:00:00 (1 of 1 - [facility] [id number] PCV13) [code = PNEUMOCOCCAL 65+ YRS (1 of 1 - [id number] PCV13)] Encounters Start End Encounter Admission Attending Care Care Encounter Source Date/Time Date/Time Type Type Clinicians Facility Department ID 2020-04-26 2020-04-26 Office GABO Vick [id number] 09:12:31 09:56:39 Visit Darrick AMBULATOR 350.1.13.21 Y 0.2.7.2.686 [id number] 2020-02-26 2020-02-26 Office GABO Vick [id number] 10:05:08 10:15:08 Visit Darrick AMBULATOR 350.1.13.21 Y 0.2.7.2.686 [id number] 2020-01-29 2020-01-29 Office GABO Vick 1.2.840.114 [id number] 10:08:48 11:01:35 Visit Darrick AMBULATOR 350.1.13.21 Y 0.2.7.2.686 [id number] 2019-12-29 2019-12-29 Office GABO Vick 1.2.840.114 [id number] 09:15:39 10:16:40 Visit Darrick AMBULATOR 350.1.13.21 Y 0.2.7.2.686 [id number] 2019-11-25 2019-11-25 Outpatient MARY Campos [facility] [id number] 09:15:00 09:15:00 Mar Haider 2019-10-01 2019-10-01 Outpatient Mazel, L [facility] [id number] 09:45:00 23:59:59 Chrissy 83 2019-09-29 2019-09-30 Outpatient [facility] [id number] 11:13:37 23:59:59 15 2019-08-20 2019-08-21 Outpatient [facility] [id number] 16:25:11 23:59:59 14 2019-08-14 2019-08-14 Outpatient Beth, [facility] [id number] 09:15:00 23:59:59 [facility] 2019-07-22 Outpatient Beth, [facility] [id number] 16:15:00 23:59:59 Mar Cross [facility] 2019-07-10 2019-07-10 Outpatient Sangalli, [facility] [id number] 10:00:00 10:00:00 Brendon Mckeon 64 2019-07-10 2019-07-10 Outpatient VISIT, [facility] [id number] 09:30:00 09:30:00 NURSE STWC 64 MAMMO 2019-06-17 2019-06-17 Outpatient VISIT, [facility] [id number] 14:45:00 23:59:59 NURSE STWH 88 XRAY 2019-06-17 2019-06-17 Outpatient Nwani, [facility] [id number] 13:45:00 23:59:59 José Miguel Locoukwu 2019-05-16 2019-05-16 Outpatient Beth, [facility] [id number] 10:00:00 23:59:59 Mar 84 [facility] 2019-05-16 2019-05-16 Outpatient Beth, [facility] [id number] 10:00:00 10:00:00 [facility] 2019-04-09 2019-04-10 Outpatient [facility] [id number] 09:52:12 23:59:59 13 2019-04-02 2019-04-02 Outpatient Mazel, L [facility] [id number] 09:15:00 23:59:59 Chrissy 81 2019-03-28 2019-03-28 Outpatient Mazel, L [facility] [id number] 10:15:00 10:15:00 Chrissy 80 2019-03-27 2019-03-27 Outpatient Shawna, [facility] [id number] 13:00:00 23:59:59 José Miguelmanav Bejarano 2019-03-24 2019-03-24 Outpatient Trent, L [facility] [id number] 08:45:00 08:45:00 Chrissy 74 2019-03-17 2019-03-17 Outpatient Espinoza, [facility] [id number] 14:45:00 14:45:00 Luca 78 2019-02-27 2019-02-27 Outpatient Beth, [facility] [id number] 10:15:00 23:59:59 Mar Haider 2019-01-01 2019-01-01 Outpatient [facility] [id number] 08:30:00 23:59:59 77 2018-11-15 2018-11-15 Outpatient Abraham, [facility] [id number] 09:00:00 23:59:59 Onofre Bonner 72 2018-11-15 2018-11-15 Outpatient Abraham, [facility] [id number] 09:00:00 09:00:00 Onofre P 60 2018-09-23 2018-09-23 Outpatient Trent, L [facility] [id number] 10:15:00 23:59:59 Chrissy 58 2018-09-10 2018-09-10 Outpatient Thrasher, [facility] [id number] 16:00:00 23:59:59 Alan Ruiz 2018-08-01 2018-08-01 Outpatient Morrow, [facility] [id number] 08:30:00 23:59:59 Obuchukveronica 71 me [place] 2018-07-11 2018-07-11 Outpatient Sangalli, MH29 MH29 [id number] 08:27:00 23:59:00 Brendon Mckeon 2018-07-11 2018-07-11 Outpatient Sangalli, MH29 MH29 [id number] 08:27:00 23:59:00 Brendon Mckeon 2018-07-09 2018-07-09 Outpatient VISIT, [facility] [id number] 09:30:00 23:59:59 NURSE STCURT WALKER 2018-07-09 2018-07-09 Outpatient VISIT, [facility] [id number] 09:30:00 23:59:59 NURSE STWH 71 DEXA 2018-07-09 2018-07-09 Outpatient [facility] [id number] 08:00:00 23:59:59 67 2018-07-09 2018-07-09 Outpatient [facility] [id number] 08:00:00 23:59:59 67 2018-07-09 2018-07-09 Outpatient VISIT, [facility] [id number] 09:30:00 09:30:00 NURSE STWH 68 DEXA 2018-07-09 2018-07-09 Outpatient VISIT, [facility] [id number] 09:30:00 09:30:00 NURSE STWH 66 DEXA 2018-07-09 2018-07-09 Outpatient VISIT, [facility] [id number] 09:30:00 09:30:00 NURSE STWH 69 DEXA 2018-07-09 2018-07-09 Outpatient VISIT, [facility] [id number] 09:30:00 09:30:00 NURSE STWH 70 DEXA 2018-07-09 2018-07-09 Outpatient VISIT, [facility] [id number] 09:30:00 09:30:00 NURSE STWH 66 DEXA 2018-07-09 2018-07-09 Outpatient VISIT, [facility] [id number] 09:30:00 09:30:00 NURSE STWH 68 DEXA 2018-07-09 2018-07-09 Outpatient VISIT, [facility] [id number] 09:30:00 09:30:00 NURSE STWH 69 DEXA 2018-07-09 2018-07-09 Outpatient VISIT, [facility] [id number] 09:30:00 09:30:00 NURSE STWH 70 DEXA 2018-07-08 2018-07-08 Outpatient Sangalli, [facility] [id number] 10:00:00 23:59:59 Brendon Mckeon 44 2018-07-08 2018-07-08 Outpatient Sangalli, [facility] [id number] 10:00:00 23:59:59 Brendon Mckeon 44 2018-07-08 2018-07-08 Outpatient VISIT, [facility] [id number] 09:30:00 23:59:[address] 63 DEXA 2018-07-08 2018-07-08 Outpatient VISIT, [facility] [id number] 09:30:00 23:59:[address] 63 DEXA 2018-07-08 2018-07-08 Outpatient VISIT, [facility] [id number] 09:30:00 09:30:[address]W 43 MAMMO 2018-07-08 2018-07-08 Outpatient VISIT, [facility] [id number] 09:30:00 09:30:[address] 43 MAMMO 2018-05-16 2018-05-16 Outpatient Abraham, [facility] [id number] 09:45:00 23:59:59 Onofre Bonner 59 2018-05-09 2018-05-09 Outpatient Abraham, [facility] [id number] 08:30:00 08:30:00 Onofre P 40 2018-03-28 2018-03-28 Outpatient Beth, [facility] [id number] 13:15:00 23:59:59 Mar Haider 2018-03-25 2018-03-25 Outpatient Aidal, L [facility] [id number] 09:45:00 23:59:59 Chrissy 57 2018-03-21 2018-03-21 Outpatient Aidal, L [facility] [id number] 09:30:00 09:30:00 Chrissy 51 2018-03-08 2018-03-08 Outpatient Donereuben, [facility] [id number] 09:30:00 23:59:59 Raymond Arizmendi [facility] 2018-03-05 2018-03-05 Outpatient Abraham, [facility] [id number] 15:15:00 23:59:59 Onofre Bonner 55 2018-02-13 2018-02-13 Outpatient Abraham, [facility] [id number] 13:45:00 23:59:59 Onofre P 54 2017-10-31 2017-10-31 Outpatient MHMISCHER MHMISCHER [id number] 12:00:00 23:59:59 53 2017-09-28 2017-09-29 Outpatient MHMISCHER MHMISCHER [id number] 13:18:00 23:59:59 12 2017-09-24 2017-09-25 Outpatient MH[facility] [id number] 08:37:00 23:59:59 11 2017-09-19 2017-09-19 Outpatient Mazel, L [facility] [id number] 09:15:00 23:59:59 Chrissy 40 2017-09-19 2017-09-19 Outpatient Mazel, L [facility] [id number] 09:15:00 23:59:59 Chrissy 40 2017-08-28 2017-08-28 Outpatient Beth, [facility] [id number] 15:30:00 23:59:59 Mar Haider 2017-08-28 2017-08-28 Outpatient Thrasher, [facility] [id number] 14:30:00 23:59:59 Alan 34 [place] 2017-08-28 2017-08-28 Outpatient Thrasher, [facility] [id number] 14:30:00 23:59:59 Alan 34 [place] 2017-08-03 2017-08-03 Outpatient Beth, [facility] [id number] 14:00:00 23:59:59 Mar Haider 2017-08-01 2017-08-02 Outpatient [facility] [id number] 15:46:00 23:59:59 10 2017-07-25 2017-07-25 Outpatient VISIT, [facility] [id number] 14:15:00 23:59:59 NURSE STWH 48 XRAY 2017-07-25 2017-07-25 Outpatient Beth, [facility] [id number] 13:15:00 23:59:59 Mar Haider 2017-07-25 2017-07-25 Outpatient VISIT, [facility] [id number] 14:15:00 14:15:00 NURSE STWH 47 XRAY 2017-06-28 2017-06-28 Outpatient VISIT, [facility] [id number] 10:00:00 23:59:59 NURSE STWC 45 MEERSONO 2017-06-28 2017-06-28 Outpatient Sangalli, [facility] [id number] 09:00:00 23:59:59 Brendon Mckeon 21 2017-06-28 2017-06-28 Outpatient Sangalli, [facility] [id number] 09:00:00 23:59:59 Brendon Mckeon 21 2017-06-28 2017-06-28 Outpatient Cassie, [facility] [id number] 09:00:00 23:59:59 Brendon Mckeon 21 2017-06-28 2017-06-28 [facility] [id number] 10:00:00 10:00:00 NURSE STWC 20 MAMMO 2017-06-28 2017-06-28 [facility] [id number] 10:00:00 10:00:00 NURSE STWC 20 MAMMO 2017-06-28 2017-06-28 [facility] [id number] 10:00:00 10:00:00 NURSE STWC 20 MAMMO 2017-06-21 2017-06-22 Outpatient MG MG [id number] 13:39:00 23:59:59 09 2017-06-14 2017-06-15 Outpatient MG MG [id number] 08:53:00 23:59:59 08 2017-06-14 2017-06-14 [facility] [id number] 08:15:00 23:59:59 Ulca 42 2017-04-27 2017-04-27 Out[facility] Abraham[facility] [id number] 09:15:00 23:59:59 Onofre P 18 2016-07-21 2016-07-21 Outpatient Abbie, MH29 MH29 [id number] 14:03:00 23:59:00 Abdifatah Hira 2016-07-07 2016-07-07 Outpatient Abbie, MH29 MH29 [id number] 10:35:00 23:59:00 Abdifatah Iniguez Results Test Description Test Time Test Comments Results Result Comments Source AFB culture + smear (non-sputum) 2020-03-03 08:38:00 Test Item Value Reference Range Interpretation Comme nts Result (test code = 6463-4) No acid-fast bacilli isolated in 42 day s AFB Smear (test code = 26452-3) No [facility]2020-03-03 08:38:00 Test Item [...] code = 994) seen Fungus culture + [id number] 16:29:00 Test Item Value Reference Range Interpretation Comments Result (test code = No fungus isolated in 6463-4) 28 days Fungus Smear (test No fungi seen code = 1406[facility] [id number] 16:29:00 Test Item Value Reference Range Interpretation Comments CULTURE (BEAKER) (test No fungus isolated in code = 1095) 28 days FUNGUS SMEAR (BEAKER) No fungi seen (test code = 1406) FUNGUS CULTURE + [id number] 16:29:00 Test Item Value Reference Range Interpretation Comments CULTURE (BEAKER) (test No fungus isolated in code = 1095) 28 days FUNGUS SMEAR (BEAKER) No fungi seen (test code = 1406) FUNGUS CULTURE + [id number] 16:29:00 Test Item Value Reference Range Interpretation Comments CULTURE (BEAKER) (test No fungus isolated in code = 1095) 28 days FUNGUS SMEAR (BEAKER) No fungi seen (test code = 1406) ANAEROBIC [id number] 19:02:00 Test Item Value Reference Range Interpretation Comments CULTURE (BEAKER) (test No anaerobes isolated code = 1095) ANAEROBIC [id number] 18:50:00 Test Item Value Reference Range Interpretation Comments CULTURE (BEAKER) (test No anaerobes isolated code = 1095) Anaerobic [id number] 18:49:00 Test Item Value Reference Range Interpretation Comments Result (test code = No anaerobes isolated 6463-4) [facility] [id number] 18:49:00 Test Item Value Reference Range Interpretation Comments CULTURE (BEAKER) (test No anaerobes isolated code = 1095) SURGICALLY OBTAINED CULTURE + GRAM [id number] 12:55:00 Test Item Value Reference Range Interpretation Comments CULTURE (BEAKER) (test code No growth = 1095) GRAM STAIN RESULT (BEAKER) No WBCs (test code = 1123) GRAM STAIN RESULT (BEAKER) No organisms seen (test code = 37402) SURGICALLY OBTAINED CULTURE + GRAM [id number] 12:54:00 Test Item Value Reference Range Interpretation Comments CULTURE (BEAKER) (test code No growth = 1095) GRAM STAIN RESULT (BEAKER) 1+ WBCs (test code = 1123) GRAM STAIN RESULT (BEAKER) No organisms seen (test code = 05248) Surgically obtained culture + gram [id number] 12:53:00 Test Item Value Reference Range Interpretation Comments Result (test code = 6463-4) No growth Gram Stain Result (test No organisms seen code = 1123) [facility]AM [id number] 12:53:00 Test Item Value Reference Range Interpretation Comments CULTURE (BEAKER) (test code No growth = 1095) GRAM STAIN RESULT (BEAKER) 1+ WBCs (test code = 1123) GRAM STAIN RESULT (BEAKER) No organisms seen (test code = 97758) Tissue [id number] 12:16:00 Test Item Value Reference Range Interpretation Comments Case Report (test code Surgical Pathology = 104) Report Case: [id number] Authorizing Provider: Darrick Vick Collected: 01/14/2020 11:55 AM Louise Martinez MD Ordering Location: [facility] OR Received: 01/14/2020 04:17 PM Perioperative Services Pathologist: Kenia Chaney MD Specimen: Explant, RIGHT KNEE TOTAL REVISION DIAGNOSIS (test code = [id number] 3220) uZzEwMzNcZnRuYmpcdWMxIH miidVhQIqre6UyY2MkTaKyK FxhbnNpXGRlZmxhbmcxMDMz TDG5vuDiVSExHBcdZTIlBOn uDx6hnALcnWsaSeVjKAVus4 alykNKjygbjUr7b2kuIERoZ xF3hBJcRZnuP0iaxxLnnCYu TILjJYg9yL77TLCewJ5cqDS sIDtccmVkMFxncmVlbjBcYm v1CJGqP7kcDWKxRKKlJ1ZuJ A0pGYCyBks5EPT0YWJ8qAlb n3L5zBVadULtuTipOuQlWtK oWLAVt1PtYQs1pQadS2NaFS WcAkQ9iKCaRADfYAjoWHLiM RFsrjP9tW73HFmmjvQ4fEPe q5Cbj67tv772dM0zoFAiLXH 5CMVxELAzkFOvFVUbAGN2JS AlbJLdF0e5HiJklFAhZ7W6D eWpgTGgG3V8XgBmyNEfS7G7 CkAbyMDoLTHgtSCmDe4uwRT aiRUtgq8hhx13RLD1r1BbfO gdUZP9UFQ2IjMvWz8qiRLrX RCiKM0hXxEaaKCeFWUfsh94 kDtqGPubpbFmbT9oOrFaRPA lvTZaSPNqPM2bjZZvQLBbbI 5ucmxjXHBnYnJkcmhlYWRcc NksfqIgDi7yjZusPTA2ANfo V6ztlJ3uXjE1TNqdS1zcmY5 qZJq2QQrpjEM7QJJtlP6sQM 7qlqmjk6fkIxIqXA9ldgkwn 5ecAzGaNH6utpw5n3bwHyKr VW2wbyukr2beCmLyBBhvZGP qrwliLEHjg5VvcljbFDVbo1 ZwE3MnsHzkY53tcIkiC89sU CFgaMgqvY8npOalxU0uIqKz ZnMyMFxxbFxwbGFpblxmMFx mczIwXHBsYWluXGYwXGZzMj TjlIBoTXSifiRjaEykkK0xH jBcZnMyMFxwbGFpblxmMVxm czIwIEEuIEhBUkRXQVJFLCB NPW1KJyIKKPFLWj2PCgNPFU KAYH6BAFdOCiJGMrzEOeliD NYxiWoquApqkT2fQtMjSfCh MFxwbGFpblxmMVxmczIwICA uOT6wUWDHKAuZXoAxCVAKBf FSUwqCODIlH7ZSKTmTT7NED SNOQ6LLDQLPAP0KHK3naGir hD4dIyKaYgOoGWluWWD6g0h ydGYxXHNzdGUxODAwMFxhbn CdKUBqLvkjvjhqUENnJKK9w hTgAZXxMKlpLWTbBHouFl1c yWMkdCcmItGbRATvf5urmjM BdcjryRr7c0lvAEHfKiH6wO VjNTaxN4vugwZszWWlHZUxA Tt9xF23HIRrwG3biCEbUYsf paIkQcY3IOuvGLFsOrD3PZN weITcMQMcG3ijPXDwHVofES FyPNslqAMxODF5xEdfu9X9o GVzaGVldHtcZjBcZnMyMiBO l7NiZCe2aOexS6UnCTNsQvK 1bHQgUGFyYWdyYXBoIEZvbn X1cP02HVmjgsG5wVSrq3Lgc 81ej019rA6yoXLiMAX1LMQk LHAqqSTrSDLxPSO3SMSxtGA wU8moHLUtPY7tryciLFgzFG veFFXhsMZ3JYCraZRrT4EgE WUcGAjnUTMbpkn5IyGjVf0y yYCdjEsdTEgof7eut7istRK jGui8HXNdQiVrXlyrJBwke9 Ezz4yuCERdoa9rVOF9eIJrk Ozbf1Y2vHYcETOxiXAbJNSi FR2vrCSfMZKprC1uzezyYIJ nYnJkcmhlYWRccGdicmRyZm 1duBvqUDH3YPqoG3cdtE1lP aN4SXohV5ybxO6wBDs0JYdd BVXscRS6kiV0VVAitALxF9V laC7dIWNjMI9skfl1e6naNW P9LGbbLWBeEvR7lcH7PQZux WNhUQZimThzJJlsg525SSM4 KrZmEZGtt5BhX6RmcSffV69 xfHgjQ36hRBZhfQsisG4kcU ulnY5dOjYpFaSiWIaeeZruY K8tOZTdY3kvoZUqRUNvPNKq T8uzWhAjyH8igOsxKNfliiD bCESuJcq6SUGatGHcUVDlZk g1GUBuQQFzM77mkjxoGAN9z I8wp4oav5ZqIIdbKMP9WZXj o48tHSixipB3NChpRw13QLg uYFO8BIjeCSS2uV== CPT Code(s) (test code h6pacEIcXIZacIQmEnKhKWW = 3357) cJDKrx3qyQMJihCBsLmAeBg NcZnRuYmpcdWMxXGRlZmYwe 0xfb661yNDpe8otZDBmDjY5 kZToHBAtpUPjK114f2jhn5u sppPweUZ7YBCgWMO3BAkear RybdT1NCbafFPtAuM8AEakf jZrZJrqvkBqywIjEqe8IOAm N570ZHZ6uSjut3ovMIP1KSJ sKLUqYfKzDi4yvZKlS173GJ IkSBSHMWKibCj9CWWodmJka nWyuOWOk093K360u0jeLHGn gaEgsKbJhtgnd4mbS554EEC hcGVydzEyMjQwXHBhcGVyaD E7BZIbNW4mchqkMqBeOE4we draXkEpOR1qwiz1IlXjSZ0q cmdiNzIwXGhlYWRlcnkwXGZ vp0VgzdqgVX4sQ9Lch4B4sI 9maXRcZGVmdGFiNzIwXGZvc c3cnTVuBHpok7JoMZA0cjG3 lJZkeUSiGBJnIB41Bapqh7J hOsvsOAW0OLCspvCqn5Udd0 tpQmKfveOfU2muL6RqQLViX OIuDJJySfAylbPhp0Rcg1Km pKPrqIx6x2klGFKrLGRgpRz az1htLVC2EGUkZ9E3vEHfq9 jnGWroJIXexCL4koymXQkvU SUtpsD3dyqoHWnsGLFgnER9 vsfcZLsxLJVwIoT4ovraQDx bCMXeSNA6ABjnp618MFY2YN xzYmtwYWdlXHBnbmNvbnRcc GduZGVjXHBsYWluXHBsYWlu XGYwXGZzMjRccWxccGxhaW5 sPuUsLiFkANwvIL5hMKAzM6 woaLFuYMXwXWRsY5uxEoJqy K5wxFadIFhxfpHaOPq1PcIv XHBhcn0= CLINICAL HISTORY (test a7bqdZYqGRQnzXMgLrInQPB code = 3356) rLTUro3jxGISprELlCxNfYb NcZnRuYmpcdWMxXGRlZmYwe 3itv954lBPvc0faQWMgSrW0 kTNdFLVslDGuH763ACSaIHr ut1jnr4IiYDIusMFjb6E6TW WThvfkmCf5hEkeV01rm2K6G awlV8xiVDArQQJgN0AdPL8j SXEzEwo0CCY9SIG5CFCbBBL iM3XoGI8sPMZvrYYqTVc9o1 amsRdeGFQmNEL7d8omTKedk oDmEO7ypi2jcLg9y5kqlcAk TQWkCTIryRSHMJWiS6HogHy eHi9vtKp5qSkiKpryDIV8Tc x3AW2ypu45ipd8wPneWPXsl lsoZxT0BClwKENoecofDXk2 MFxtYXJnbDcyMFxtYXJncjc yMFxtYXJndDcyMFxtYXJnYj gfZVpcEHCpGSQ4QIzma595F MA3OOlwx2jvl7lcyANgAzw1 NIPuUwYhBoeuQZlay6Ndb4g zEGTefm8jCJM9zANusQjoo1 W0lPPySCVhwXKmijPmTDIvT qD9XTzlCF5ugh60QTBdWFQ3 ym4naZIloIofpsCjoEAfMAf aA3PiSAIsl201THZwA3PlGJ Xeu7U9rhPxZmAvUYQlbYM7n uA3HMTmCRe5aGDurrN8pdLo pMCiG8zrpU69HyVbdSOkV6J wgS28OrGelENeK9CmtD31Lv TbnVFuL5WzrO64VcPrmYKhM OImxWGpFk8voBPevJKmp1Wo qQXkKXnfE36tr804XMLomhT tT8aifWXzakvftJEibddxWA wnidI5WMLgKTCuQBaiCPAnV GZzMjBcbGFuZzEwMzNcaGlj mVerOVumBmIsWASkVEiiD2r cZjFcZnMyMCBQcmVvcCBkaW Fjxr0apYT9GWMVGTTqBC9vM 5EySScrs2YucdadVbTdDpKt dfMozi3vuEHbUOP0HVcrWMA hfYUui7FvZEZnFfFxo2juqY cevE9xpLkwqNUzeiEbdQ41G XIuIFxwYXJ9 SPECIMEN SOURCE (test l1nauTKqEXWqdOXfQlWdXKF code = 3377) hDCAfe2itBTYriMAxCjHuGm NcZnRuYmpcdWMxXGRlZmYwe 8apl340kUFkv0tkKTWmIhE9 nYEaKBJoeMYlA065g2plf8g wbeUuqWB0GHDgVEK0MRoied UlesL2KIfqnEPjRuG4ALurf uCoTEeklpZopcMgShx5LZRr W266TXI8iEtts9lgGZE8BFK zZNHcMxYqKf3ctJWiS300DM HfLIOVVNImbEk1MVEhdsHjx uDgoJYBn128L466e9qiOUZd daWgyOlKecttv3sbK931RVE hcGVydzEyMjQwXHBhcGVyaD N4EFQqHI7nrmmtTjMhPN3bf oyyKrGcIQ5dsjo6JgLsNN7h cmdiNzIwXGhlYWRlcnkwXGZ ht2MrpfqgUF7kU4Qga8Z5vL 9maXRcZGVmdGFiNzIwXGZvc n2rfUIxSTblm3HgPZJ6xrF1 lUUmmHGiPZSmRP86Vyccn2B cCajvZGH6ASHjtbYey9Eli1 goJwZlljIdM4mlC1KtSFKlG ZObQGJjTdPbzoJhr1Grd7Hz rUOaxWq7j6llKGBvNTGauMx dg6uhALN6HSWlL0V9cZYif2 khJIgaRFRemJD7xsdeKHghO HUbwhC5ksjcTPtrSSBkmVQ0 umctCFdnEUUkWrF0kqmdZVq mGVGlEKI4QOejj734XXQ6FU xzYmtwYWdlXHBnbmNvbnRcc GduZGVjXHBsYWluXHBsYWlu XGYwXGZzMjRccWxccGxhaW5 jXxKiKeUiFRhqIQ8tJNGzY7 gmqSMsBMNcIKPaJ4hrSoIwu F6mpJfmVYgivqKaYNT6nDmk bnRccGFyfQ== GROSS DESCRIPTION b4xemYKcCPRpmBWoUbDqIMM (test code = 3366) oNZWdz0eoFDCuiTKuOpMrIa NcZnRuYmpcdWMxXGRlZmYwe 7ock513uKIuw4dkWTTjKkY0 uUMlHDCgyVEcU239KIEfMYj xh5ryi1TtGQThvRWec4L8EA TPdgdmvXi0qPahO86lx9H2F iehK3viCJQrXIarSSLpXTgh uJEfUGR0LGDoIFS4ADlwcyH bwhC2XHovfIAlBgG3PFi5o6 krhTixNODoNOJ6f4hhKSguj eWyFY8wwo0hkQn6k0bbbzXx OHHcKNFtvYNRJTAgC4LgiWi xAd3gvHq1dUzgFuylGNI5Zz n2IR9pdg38ffb3fVacSHFeu vbsEpD6HQluHNMchimpPWa1 MFxtYXJnbDcyMFxtYXJncjc yMFxtYXJndDcyMFxtYXJnYj maJQqoIICuQDP2YWvzs961F CQ6YZzka9khl6itkNBfNja0 HEOkEmXxIkvlHOpyn6Kvo4y fQRQuvd0tRII4mPKifPfzh6 W7iCMmSPUjpJGqrhWzTKDgR mS2ACtzTV3xfm43WCFcYHT1 uj6dlSIeaXqbmvLhlEGvQWc hS9KgJRRfg271DEDhF7XwHM Qpo9H5hxJhHkYnRDDvcHG2h iO9HWZcPCl4nLZtitJ1zoCs hFXkZ5wgiY81ZiEnvIMnJ4W qgL74LuDtwMIbM3RkjZ21Fx DkzIZaR6IttF85JtFjgVPsA EYvkXBbDu7zcXJitJBgf5Gz lQEqQNtaW37iv317BEPoziH tE6hydTUryvcboHUylgafML xmczIwXHFsXHBsYWluXGYwX VWaZbDwxTthsI9cWqDyKxOr MCBSZWNlaXZlZCBmcmVzaCB sYWJlbGVkIHdpdGggdGhlIH OicZaxfyVtmuNbGZ6yZHYfP 3Tza6Yvi57vbrJkKeTwOZAw SUMbhhqleVZdu79pYJS0c2P erQMgKEAzb3ftavHrLVOhTH RocmVlIHBpZWNlcyBvZiBtZ AAwsRyxEjAermO4IYDwCKnr BYdpk2uwnWUgs9D4yP0fEST kKhUbWUMqt2MpOOKkIM0zdH 0zTEDdr26qPj00OLAgGBVhJ SBjbSBpbiBncmVhdGVzdCBk dQ3cmmFtc67xCKDhDLEls9o xj0ynsxsakA5hZ3DljEPvq0 4gaXMgaWRlbnRpZmllZDogX HBhclxwYXIgRDEyOTQzMzEy YOZXUWTkumHnZFA3VZndRIK mUstfUFXqN7TXUPMkZGFqhV IrSJZRTQMhOT0mJOHwnqJ8R J4pVQP3FGZxwsICOlsjOlHF LTAwMDBccGFyXHBhciBBIGd if5HqQWMpm1TkH3TziJduwJ TotBKwCD4vCU6kWQDrS2Auz 76iSKBeQIRawIKeyXZ6ZETw MWVmrYBqJ0JbLXAoraElj2B vH1Jvl1OkTMrdjDelKOIsp7 8gx07olG0lEKFOR2TlKBXav GFyfQ== Gross assessment was [facility] performed at ([facility], code = 2777) Department of Pathology, [address] [place] [address], Technical component [facility] was performed at ([facility], code = 2778) Department of Pathology, [address] [place] [address], Professional component [facility] was performed at ([facility], code = 2779) Department of Pathology, [address] [place] [address], [facility] [id number] 12:16:00Surgical Pathology Report Case: [id number] Authorizing Provider: Darrick Vick Collected: 01/14/2020 11:55 AM Louise Martinez MD OrderingLocation: [facility] Received: 01/14/2020 04:17 PM Perioperative Services Pathologist: Kenia Chaney MD Specimen: Explant, RIGHT KNEE TOTAL REVISION A. HARDWARE, REMOVAL, GROSS EXAMINATION ONLY: - HARDWARE IDENTIFIED (SEE GROSS DESCRIPTION). Signing Pathologist Direct Phone Line: [phone] signed by Kenia Chaney MD on 01/15/2020 at 12:16 [id number] diagnosis: Mechanical loosening of internal left knee prosthetic joint, initial encounter. ExplantReceived fresh labeled with the patient's name, accession number and "right knee total revision" arethree pieces of metallic alcantara to alcantara-white orthopedic hardware ranging from 6.4 to 6.5 cm in greatest dimension. The following inscription is identified: [id number] 2.5 PE [id number] gross photograph is taken. No sections are submitted. This case is for gross examination only. PA/pl [facility], Department of Pathology, [address] [place] [address], [facility], Department of Pathology, [address] [place] [address], [facility], Department of [facility], [address] [place] [address], [place] [address], [facility] [id number] 05:02:00 Test Item Value Reference Range Interpretation Comments Sodium (test code = 140 meq/L 347-292 6441-2) Potassium (test code = 4.0 meq/L 3.5-5.1 2823-3) Chloride (test code = 109 meq/L 98-107 H 2075-0) CO2 (test code = 22 meq/L 22-29 2028-9) BUN (test code = 15 mg/dL 7-21 3094-0) Creatinine (test code = 0.60 mg/dL 0.57-1.25 2160-0) Glucose (test code = 105 mg/dL 70-105 2345-7) Calcium (test code = 8.2 mg/dL 8.4-10.2 L 95765-2) EGFR (test code = 117 mL/min/1.73 [place] [address]-1) NOT ACCURATE CREATININE CLEARANCE IN PREDICTING GLOMERULAR FILTRATION RATE . ESTIMATED GFR I S NOT APPLICABLE FOR DIALYSIS PATIEN TS. Lab Interpretation Abnormal (test code = 84279-8) [facility]OL[facility] [id number] 05:02:00 Test Item Value Reference Range Interpretation [...] TS. CBC with platelet count + automated [id number] 04:49:00 Test Item Value Reference Range Interpretation Comments WBC (test code = 6690-2) 12.7 See_Comment H [A utomated message] The system [employer] generated this result transmitted ref erence range: 3.5 - 10 .5 K/L. The refe rence range was not u sed to interpret this result as normal/abnor mal. RBC (test code = 789-8) 3.87 See_Comment L [Au tomated message] The system [employer] generated this result transmitted ref erence range: 3.93 - 5 .22 M/L. The refe rence range was not u sed to interpret this result as normal/abnor mal. MCHC (test code = 786-4) 33.9 See_Comment [A utomated message] The system [employer] generated this result transmitted ref erence range: 32.2 - 3 5.5 GM/DL. The refe rence range was not u sed to interpret this result as normal/abnor mal. Hematocrit (test code = 34.2 % 34.1-44.9 4544-3) MCV (test code = 787-2) 88.4 fL 79.4-94.8 MCH (test code = 785-6) 30.0 pg 25.6-32.2 RDW (test code = 788-0) 12.9 % 11.7-14.4 Platelets (test code = 195 See_Comment [Aut omated message] 777-3) The system [employer] generated this result transmitted ref erence range: 150 - 45 0 K/CU MM. The referen ce range was not u sed to interpret this result as normal/abnor mal. MPV (test code = 11.1 fL 9.4-12.3 75259-1) % Neutros (test code = 78 % 429) % Lymphs (test code = 12 % 430) % Monos (test code = 10 % 431) % Eos (test code = 432) 0 % % Baso (test code = 437) 0 % # Neutros (test code = 9.83 See_Comment H [Aut omated message] 670) The system [employer] generated this result transmitted ref erence range: 1.56 - 6 .13 K/L. The refe rence range was not u sed to interpret this result as normal/abnor mal. # Lymphs (test code = 1.48 See_Comment [Auto mated message] 414) The system [employer] generated this result transmitted ref erence range: 1.18 - 3 .74 K/L. The refe rence range was not u sed to interpret this result as normal/abnor mal. # Monos (test code = 1.32 See_Comment H [Autom ated message] 415) The system [employer] generated this result transmitted ref erence range: 0.24 - 0 .36 K/L. The refe rence range was not u sed to interpret this result as normal/abnor mal. # Eos (test code = 416) 0.00 See_Comment L [Au tomated message] The system [employer] generated this result transmitted ref erence range: 0.04 - 0 .36 K/L. The refe rence range was not u sed to interpret this result as normal/abnor mal. # Baso (test code = 417) 0.02 See_Comment [A utomated message] The system [employer] generated this result transmitted ref erence range: 0.01 - 0 .08 K/L. The refe rence range was not u sed to interpret this result as normal/abnor mal. Immature 0 % 0-1 Granulocytes-Relative (test code = 2801) Lab Interpretation (test Abnormal code = 10097-1) [facility] W/PLT COUNT & AUTO [id number] 04:49:00 Test Item Value Reference Range Interpretation [...] PERCENT (BEAKER) (test code = 2801) SPIN/CONCENTRATION [id number] 01:24:00 Test Item Value Reference Range Interpretation Comments Concentration charged (test code = Done 2657) [facility] [id number] 01:24:00 Test Item Value Reference Range Interpretation Comments CONCENTRATION CHARGED (BEAKER) (test Done code = 2657) RAD, KNEE, 1 OR 2 VIEWS, [id number] 17:25:00AP and lateral views of the prosthetic [...] changes including intra-articular gas. Signed: Renato Brown Verified Date/Time: 01/14/2020 17:25:10 Reading Location: [facility] [address] [place] [address] XR knee 1 or 2 views right [...] changes including intra-articular gas. Signed: Renato Brown Verified Date/Time: 01/14/2020 17:25:10 Reading Location: [facility] [address] [place] [address] Electronically signedby: RENATO BROWN MD on 01/14/2020 05:[facility] [id number] 09:23:35Taco Sullivan MD - 01/14/2020 9:23 AM [...] position: supinePatient monitoring: EKG, HR, BP and LoJ7Rpilibrzim: rightBlock type: adductor canalInjection technique: catheterultrasound guided [...] well. No pain on injection or throughout procedure.[facility] SP[facility] 2020-01-14 09:22:28Taco Sullivan MD - [...] position: sittingPatient monitoring: EKG, HR, BP and WoK5Axsacchj: midlineLevel: L3-4Injection technique: single-shotlandmark technique and landmark techniqueNeedleNeedle type: Other (valerie) Needle gauge: 25 GNeedle Length: 9 cmUsed introducerAssessmentSensory level: V56Gfhaer: cerebrospinal fluidpatient had no immediate complications, patient had adequate level of anesthesia and negative Allis clamp test and patient tolerated the procedure wellAdditional NotesPatient tolerated well. No pain on injection or throughout procedure.[facility] and screen, automated 2020-01-14 08:12:00 Test Item Value Reference Range Interpretation Comments ABO/RH AUTOMATED (BEAKER) (test O POSITIVE code = 2260) Ab Scrn (test code = 890-4) NEGATIVE [facility]
[2020-08-12 15:14] LABS: Absolute Lymphocytes (CBC) 1.9 K/uL (0.7-4.9); Basophils % 0.7 % (0-1.3); Hematocrit 35.5 % (36.0-45.0); Lymphocytes % 31.4 % (15.3-44.8); MPV 9.8 fL (7.6-11.3); RBC Red Blood Cell Count 3.98 M/uL (3.86-4.86)
[2020-08-12 15:15] LABS: Protime INR 1.04
[2020-08-12 15:28] LABS: ALT/SGPT 29 U/L (12-78); AST/SGOT 15 U/L (15-37); Albumin 4.1 g/dL (3.4-5.0); Alkaline Phosphatase 89 U/L (45-117); BUN Blood Urea Nitrogen 20 mg/dL (7-18); Bicarbonate 27 mmol/L (21-32); Bilirubin Direct 0.1 mg/dL (0-0.2); Bilirubin Total 0.5 mg/dL (0.2-1.0); Glucose Level 98 mg/dL (74-106); Lipase 92 U/L (73-393); Magnesium 2.3 mg/dL (1.8-2.4); NT PRO-BNP 17 pg/mL (<450); Protein, Total 8.4 g/dL (6.4-8.2); Sodium Level 141 mmol/L (136-145); Troponin (Emerg Dept Use Only) < 0.02 ng/mL (0.0-0.045)
--- NOTE | 2020-08-12 15:30 | RAD REPORT ---
EXAM DESCRIPTION: RAD - Chest Single View - 08/12/2020 3:05 pm CLINICAL HISTORY: CHEST PAIN Chest pain. COMPARISON: Chest Pa And Lat (2 Views) dated 01/05/2020; CHEST PA AND LAT 2 VIEW dated 04/21/2010 FINDINGS: Portable technique limits examination quality. The lungs are grossly clear. The heart is normal in size. No displaced fractures.Aortic atheroscleros is. IMPRESSION: No acute intrathoracic process suspected.
--- NOTE | 2020-08-12 18:38 | EDPHYS ---
Physician Documentation [facility] Name: Bo Boudreaux Age: 79 yrs Sex: Female : 1940 Arrival Date: 08/12/2020 Time: 14:14 Bed 17 Private MD: Oscar Barrera V ED Physician Philip Marlow HPI: 08/12 14:40 This 79 yrs old Black Female presents to ER via Ambulatory with complaints of pain cp under right breast. 14:40 The patient or guardian reports chest pain that is located primarily in the anterior cp chest wall, right side, below right breast. 14:40 Onset: suddenly, 1 hour(s) ago. The pain does not radiate. Associated signs and cp symptoms: Pertinent negatives: abdominal pain, cough, lower extremity pain, lower extremity swelling, palpitations, shortness of breath, syncope. The chest pain is described as sudden. Duration: The patient or guardian reports a single episode, that is now resolved. Historical: - Allergies: 14:18 PENICILLINS; ll1 - PMHx: 14:18 Hypertension; Hyperlipidemia; ll1 - PSHx: 14:18 Hysterectomy; Knee surgery; ll1 - Immunization history:: Flu vaccine is up to date. - Social history:: Smoking status: Patient denies any tobacco usage or history of. ROS: 14:45 Constitutional: Negative for body aches, chills, fever, poor PO intake. cp 14:45 Eyes: Negative for injury, pain, redness, and discharge. cp 14:45 Cardiovascular: Positive for chest pain, of the right side of chest below breast, Negative for edema, palpitations. 14:45 Respiratory: Negative for cough, shortness of breath, wheezing. 14:45 Abdomen/GI: Negative for abdominal pain, nausea, vomiting, and diarrhea. 14:45 Back: Negative for radiated pain. 14:45 Skin: Negative for rash. 14:45 Neuro: Negative for altered mental status, dizziness, headache, syncope, weakness. 14:45 All other systems are negative. Exam: 14:50 Constitutional: The patient appears in no acute distress, alert, awake, comfortable, cp non-diaphoretic, non-toxic, well developed, well nourished. 14:50 Head/Face: Normocephalic, atraumatic. cp 14:50 Eyes: Periorbital structures: appear normal, Conjunctiva: normal, no exudate, no injection, Sclera: no appreciated abnormality, Lids and lashes: appear normal, bilaterally. 14:50 ENT: External ear(s): are unremarkable, Nose: is normal, Posterior pharynx: Airway: no evidence of obstruction, patent. 14:50 Chest/axilla: Inspection: normal, Palpation: is normal, no crepitus, no tenderness. 14:50 Cardiovascular: Rate: normal, Rhythm: regular, Pulses: Pulses are 2+ in right radial artery and left radial artery. Edema: is not appreciated, JVD: is not appreciated. 14:50 Respiratory: the patient does not display signs of respiratory distress, Respirations: normal, no use of accessory muscles, no retractions, labored breathing, is not present, Breath sounds: are clear throughout, no decreased breath sounds, no stridor, no wheezing. 14:50 Abdomen/GI: Inspection: abdomen appears normal, Palpation: abdomen is soft and non-tender, in all quadrants, rebound tenderness, is not appreciated, voluntary guarding, is not appreciated, involuntary guarding, is not appreciated. 14:50 Back: pain, is absent, ROM is normal. 14:50 Skin: no rash present. 14:50 Neuro: Orientation: to person, place \T\ time. Mentation: is normal, Motor: moves all fours, strength is normal. 15:12 ECG was reviewed by the Attending Physician. cp Vital Signs: 14:18 BP 157 / 74; Pulse 78; Resp 17; Temp 98.5; Pulse Ox 98% ; Weight 77.56 kg; Height 5 ft. ll1 5 in. (165.10 cm); Pain 8/10; 14:34 BP 134 / 77; Pulse 91; Resp 18; Pulse Ox 100% ; dm14 15:00 BP 137 / 67; Pulse 71; Resp 18; Pulse Ox 99% ; dm14 15:30 BP 135 / 59; Pulse 66; Resp 18; Pulse Ox 100% ; dm14 16:00 BP 136 / 57; Pulse 68; Resp 18; Pulse Ox 99% ; dm14 17:00 BP 125 / 57; Pulse 71; Resp 18; Pulse Ox 98% ; dm14 18:00 BP 135 / 69; Pulse 76; Resp 18; Pulse Ox 100% ; dm14 14:18 Body Mass Index 28.46 (77.56 kg, 165.10 cm) ll1 MDM: 14:37 Patient medically screened. cp 15:00 Differential diagnosis: acute myocardial infarction, acute pericarditis, cholecystitis, cp Cholelithiasis pneumonia, pneumothorax, pulmonary embolus. 18:35 Data reviewed: vital signs, nurses notes, lab test result(s), EKG, radiologic studies, cp plain films. 18:35 Test interpretation: by ED physician or midlevel provider: ECG, plain radiologic cp studies. ED course: VSS. Chest pain resolved while in ED. Low suspicion for cardiac cause of chest pain. Troponin and EKG normal. Will discharge to home for continued monitoring. 08/12 14:38 Order name: Basic Metabolic Panel; Complete Time: 15:46 cp 03/04 15:46 Interpretation: Normal except: BUN 20; GFR 77. cp 03/04 14:38 Order name: CBC with Diff; Complete Time: 15:46 cp 03/04 16:07 Interpretation: Normal except: HGB 11.8; HCT 35.5. cp 03/04 14:38 Order name: LFT's; Complete Time: 15:46 cp 03/04 14:38 Order name: Magnesium; Complete Time: 15:46 cp 03/04 14:38 Order name: NT PRO-BNP; Complete Time: 15:46 cp 03/04 14:38 Order name: PT-INR; Complete Time: 15:46 cp 03/04 14:38 Order name: Troponin (emerg Dept Use Only); Complete Time: 15:46 cp 03/04 14:38 Order name: XRAY Chest (1 view); Complete Time: 15:46 cp 03/04 14:38 Order name: EKG; Complete Time: 14:39 cp 03/04 14:38 Order name: Cardiac monitoring; Complete Time: 15:34 cp 03/04 14:38 Order name: EKG - Nurse/Tech; Complete Time: 15:34 cp 03/04 14:39 Order name: Lipase; Complete Time: 15:46 cp 03/04 17:33 Order name: Troponin I cp 03/04 14:38 Order name: IV Saline Lock; Complete Time: 15:34 cp 03/04 14:38 Order name: Labs collected and sent; Complete Time: 15:34 cp 03/04 14:38 Order name: O2 Per Protocol; Complete Time: 15:34 cp 03 14:38 Order name: O2 Sat Monitoring; Complete Time: 15:34 cp EC:12 Rate is 66 beats/min. Rhythm is regular. DE interval is normal. QRS interval is normal. cp QT interval is normal. T waves are Inverted in lead aVR. Interpreted by me. Reviewed by me. Administered Medications: 16:28 Not Given (Patient Refused; Pt refused as she has no pain at present and has to drive dm14 home): Hydrocodone-Acetaminophen (7.5 mg-325 mg) 1 tabs PO once; RASS on ADMIN: Combtv4, Very Agttd3, Agttd2, Rstlss1, AlertClm0, Drwsy-1, Lt Sdtn-2, Mod Sdtn-3, Dp Sdtn-4, UnArsble-5 Disposition: 21:59 Co-signature as Attending Physician, Philip Marlow MD I agree with the assessment and kdr plan of care. Disposition: 08/12/20 18:37 Discharged to Home. Impression: Other chest pain. - Condition is Stable. - Discharge Instructions: Nonspecific Chest Pain, Aspirin and Your Heart. - Medication Reconciliation Form, Thank You Letter, Antibiotic Education, Prescription Opioid Use form. - Follow up: Oscar Barrera MD; When: 1 - 2 days; Reason: Worsening of condition. - Problem is new. - Symptoms are resolved. Signatures: Dispatcher [employer] EDMS Philip Marlow MD MD [facility] Alex Love PA PA cp Markie Alexander RN RN jb4 Alex Moss RN RN ll1 Steffi Andujar RN dm14 Corrections: (The following items were deleted from the chart) 19:16 18:37 08/12/2020 18:37 Discharged to Home. Impression: Other chest pain. Condition is jb4 Stable. Forms are Medication Reconciliation Form, Thank You Letter, Antibiotic Education, Prescription Opioid Use. Follow up: Oscar Barrera; When: 1 - 2 days; Reason: Worsening of condition. Problem is new. Symptoms are resolved. cp
--- NOTE | 2020-08-12 18:38 | ER ---
Nurse's Notes [facility] Name: Bo Boudreaux Age: 79 yrs Sex: Female : 1940 Arrival Date: 08/12/2020 Time: 14:14 Bed 17 Private MD: Oscar Barrera V Diagnosis: Other chest pain Presentation: 08/12 14:18 Chief complaint: Patient states: Pain under R breast area for 1 hour, constant. No SOB, ll1 cough, or fever. Coronavirus screen: Client denies travel out of the [place] in the last 14 days. At this time, the client does not indicate any symptoms associated with coronavirus-19. Ebola Screen: Patient denies travel to an Ebola-affected area in the 21 days before illness onset. Initial Sepsis Screen: Does the patient meet any 2 criteria? No. Patient's initial sepsis screen is negative. Does the patient have a suspected source of infection? No. Patient's initial sepsis screen is negative. Risk Assessment: Do you want to hurt yourself or someone else? Patient reports no desire to harm self or others. Onset of symptoms was August 12, 2020. 14:18 Method Of Arrival: Ambulatory ll1 14:18 Acuity: JORJE 3 ll1 Historical: - Allergies: 14:18 PENICILLINS; ll1 - PMHx: 14:18 Hypertension; Hyperlipidemia; ll1 - PSHx: 14:18 Hysterectomy; Knee surgery; ll1 - Immunization history:: Flu vaccine is up to date. - Social history:: Smoking status: Patient denies any tobacco usage or history of. Screenin:34 Abuse screen: Denies threats or abuse. Denies injuries from another. Nutritional dm14 screening: No deficits noted. Tuberculosis screening: No symptoms or risk factors identified. Fall Risk None identified. Assessment: 14:34 General: Appears in no apparent distress. comfortable, well groomed, Behavior is calm, dm14 cooperative, appropriate for age. Pain: Complains of pain in Pain is under her Right breast Pain does not radiate. Pain currently is 3 out of 10 on a pain scale. 15:15 Reassessment: Pt states pain is gone now. EKG done. dm14 17:00 Reassessment: No changes from previously documented assessment. dm14 18:30 Reassessment: No changes from previously documented assessment. dm14 Vital Signs: 14:18 BP 157 / 74; Pulse 78; Resp 17; Temp 98.5; Pulse Ox 98% ; Weight 77.56 kg; Height 5 ft. ll1 5 in. (165.10 cm); Pain 8/10; 14:34 BP 134 / 77; Pulse 91; Resp 18; Pulse Ox 100% ; dm14 15:00 BP 137 / 67; Pulse 71; Resp 18; Pulse Ox 99% ; dm14 15:30 BP 135 / 59; Pulse 66; Resp 18; Pulse Ox 100% ; dm14 16:00 BP 136 / 57; Pulse 68; Resp 18; Pulse Ox 99% ; dm14 17:00 BP 125 / 57; Pulse 71; Resp 18; Pulse Ox 98% ; dm14 18:00 BP 135 / 69; Pulse 76; Resp 18; Pulse Ox 100% ; dm14 14:18 Body Mass Index 28.46 (77.56 kg, 165.10 cm) ll1 ED Course: 14:14 Patient arrived in ED. am2 14:14 Oscar Barrera MD is Private Physician. am2 14:19 Triage completed. ll1 14:19 Arm band placed on Patient placed in an exam room, on a stretcher. ll1 14:31 Steffi Andujar, ADRIANA is Primary Nurse. dm14 14:32 Alex Love PA is PHCP. cp 14:32 Philip Marlow MD is Attending Physician. cp 14:34 Patient has correct armband on for positive identification. Bed in low position. Call dm14 light in reach. 15:05 XRAY Chest (1 view) In Process Unspecified. EDMS 15:26 EKG done, by ED staff, reviewed by Alex POLLARD. jp3 15:30 Inserted saline lock: 20 gauge in right antecubital area, using aseptic technique. dm14 18:00 No provider procedures requiring assistance completed. IV discontinued, intact, dm14 bleeding controlled, No redness/swelling at site. Pressure dressing applied. 18:36 Oscar Barrera MD is Referral Physician. cp Administered Medications: 16:28 Not Given (Patient Refused; Pt refused as she has no pain at present and has to drive dm14 home): Hydrocodone-Acetaminophen (7.5 mg-325 mg) 1 tabs PO once; RASS on ADMIN: Combtv4, Very Agttd3, Agttd2, Rstlss1, AlertClm0, Drwsy-1, Lt Sdtn-2, Mod Sdtn-3, Dp Sdtn-4, UnArsble-5 Outcome: 18:00 Discharged to home ambulatory. dm14 18:00 Condition: stable 18:00 Discharge instructions given to patient, Instructed on discharge instructions, follow up and referral plans. Demonstrated understanding of instructions, follow-up care. 18:37 Discharge ordered by . rishabh 19:16 Patient left the ED. jb4 Signatures: Dispatcher [employer] EDMS Alex Love PA PA cp Bryson, James, RN RN jb4 [place] Roy am2 Casey Dietrich jp3 Alex Moss, RN RN ll1 Steffi Andujar, RN RN dm14
[2020-08-12 20:44] VITALS: TEMP 98.5
[2020-08-12 20:48] VITALS: BP 135/59; O2SAT 100
== END 2020-08-12 19:16 | disposition home or self-care (01) ==
LOC: ER 14:08
DX: R07.89 Other chest pain (principal); I10 Essential (primary) hypertension; E78.5 Hyperlipidemia, unspecified
CPT/HCPCS: 36415; 71045; 80048; 80076; 83690; 83735; 83880; 84484; 85025; 85610; 93005; 99284

== ENCOUNTER 2022-08-04 08:50 | Emergency (ER) | payer OTHER ==
--- OUTSIDE RECORDS SUMMARY | 2022-08-04 08:57 | XMS REPORT | Continuity of Care Document ---
:1940 Author Organization [facility] t Address [address] [place] [address] Care Team Providers Name Role Phone Oscar Pedroza Primary Care Physician DARRICK VICK Attending Clinician Unavailable DARRICK VICK Attending Clinician Unavailable Nurse, [facility] Attending Clinician Unavailable Only, Reid Castillo Test Attending Clinician Unavailable Bel Ramos MD Attending Clinician BEL RAMOS Attending Clinician Unavailable ALEK ZHU Attending Clinician Unavailable Nurse, Adc Pob Immunization Attending Clinician Unavailable Alek Zhu DO Attending Clinician Berny WRIGHT, Chantale Ackerman Attending Clinician Unavailable CARLO HERNANDEZ Attending Clinician Unavailable Doctor Unassigned, Holly Attending Clinician Unavailable Darrick Vick MD Attending Clinician Mar Campos Attending Clinician Gladys Newman Attending Clinician Brendon Matthews Attending Clinician VISIT, NURSE STC MAMMO Attending Clinician Unavailable VISIT, NURSE ST XRAY Attending Clinician Unavailable José Miguel Matos Attending Clinician Luca Doran Attending Clinician Onofre Rosario Attending Clinician Alan Thrasher Attending Clinician Vanessa Mathur Attending Clinician [phone] VISIT, NURSE BERNARDO WALKER Attending Clinician Unavailable Raymond Willis Attending Clinician Abdifatah Leiva Attending Clinician DARRICK VICK Admitting Clinician Unavailable Payers Payer Name Policy Type Policy Number Effective Date Expiration Date S [place] [facility] MEDICARE [id number] [facility] CHOICE [id number] 2018 PPO/MEDICARE PPO 00:00:00 [employer] HMO POS [id number] 2018 00:00:00 Problems Condition Condition Condition Status Onset Resolution Last Treating Co mments Source Name Details Category Date Date Treatment Clinician Date Primary Primary Disease Active [facility] osteoarthr osteoarthr 919 [employer] llege itis of itis of 00:00: of left knee left knee 00 Medi josué e 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 00 Center total knee total knee replacemen replacemen t t S/P knee S/P knee Disease Active [facility] replacemen replacemen [facility]05 [facility]sten kes t t 00:00: Medical 00 Center R10.31 - R10.31 - Diagnosis Active 2016-07-07 Memoria RIGHT RIGHT 124 10:47:00 l LOWER LOWER 00:01: [place] QUADRANT QUADRANT 00 PAIN K57.3 PAIN K57.3 Active 07/04/2016 [facility] [place] History of History Problem Active 2019-11-27 Memoria polyp of of polyp 09-07 21:25:13 l colon of colon 00:00: Dariel (situation (situation 00 ) ) Active 09/07/2014 Problem 11/27/2019 Data migrated from [employer] on 12/16/14.Ruslan a migrated from [employer] on 12/16/14. 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 Medical Group,[facility], [facility] [place] Edema Edema Problem Active 2019-11-27 Memor ia (finding) (finding) 01-21 21:25:13 l Active 00:00: Dariel 01/21/2013 00 Problem 11/27/2019 Data migrated from [employer] on 11/07/14. Medical Group,[facility], [facility] [place] Hypertensi Hypertens Problem Active 2017-06-18 Memoria ve episode ernst 01-21 03:07:06 l (disorder) episode 00:00: Jodi nn (disorder) 00 Active 01/21/2013 Problem 06/18/2017 Data migrated from [employer] on 11/07/14. Medical Group, [facility] [place] Hyperlipid Hyperlipi Problem Active 2016-07-24 Memoria emia demia 01-21 02:33:04 l (disorder) (disorder) 00:00: He rmann Active 00 01/21/2013 Problem 07/24/2016 Data migrated from [employer] on 12/16/14.Ruslan a migrated from [employer] on 11/07/14. [facility] [place] Diverticul Diverticu Problem Active 2019-11-27 Memoria ar disease lar 01-02 21:25:13 l of colon disease of 00:00: Herm hilton (disorder) colon 00 (disorder) Active 01/02/2013 Problem 11/27/2019 Data migrated from [employer] on 11/07/14. Medical Group,[facility], [facility] [place] Internal Internal Problem Active 2019-11-27 Memoria hemorrhoid hemorrhoid 01-02 21:25:13 l s s 00:00: Dariel (disorder) (disorder) 00 Active 01/02/2013 Problem 11/27/2019 Data migrated from [employer] on 11/07/14. Medical Group,[facility], [facility] [place] Osteoarthr Osteoarth Problem Active 2011-062019-11-27 Memoria itis ritis 08-08 21:25:13 l (disorder) (disorder) 00:00: He rmann Active 00 06/07/2012 Problem 11/27/2019 Data migrated from [facility] on 11/07/14. 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 21:25:13 l s s Dariel (disorder) (disorder) Active Problem 11/27/2019 [facility] her Neuro, [facility] [place] Gallbladde Problem Active 2019-11-27 M emoria r calculus Gallbladde 21:25:13 l (disorder) r calculus Jared adams (disorder) Active Problem 11/27/2019 [facility] her Neuro, [facility] [place] Degenerati Degenerat Problem Active 2019-11-27 Memoria on of ion of 21:25:13 l cervical cervical Berhane n interverte interverte bral disc bral disc (disorder) (disorder) Active Problem 11/27/2019 [facility] her Neuro, [facility] [place] Drug Drug Problem Active 2019-11-27 Memor ia therapy therapy 21:25:13 l finding finding Dariel (finding) (finding) Active Problem 11/27/2019 [facility] her Neuro, [facility] [place] 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 21:25:13 l (disorder) of vulva Herm hilton (disorder) Active Problem 11/27/2019 [facility] her Neuro, [facility] [place] Eczema Eczema Problem Active 2019-11-27 Vasile roberto (disorder) (disorder) 21:25:13 l Active [place] Problem 11/27/2019 Medical Group, [facility] [place] Finding of Finding Problem Active 2019-11-27 Memoria body mass of body 21:25:13 l index mass index Berhane n (finding) (finding) Active Problem 11/27/2019 Medical Group,[facility], [facility] [place] Hypergamma Hypergamm Problem Active 2019-11-27 Memoria globulinem aglobuline 21:25:13 l ia raza Dariel (finding) (finding) Active Problem 11/27/2019 [facility] Group,[facility], [facility] [place] Hyperglyce Hyperglyc Problem Active 2019-11-27 Memoria raza emia 21:25:13 l (disorder) (disorder) He rmann Active Problem 11/27/2019 Medical Group, [facility] [place] Lesion of Lesion of Problem Active 2019-11-27 Memoria liver liver 21:25:13 l (finding) (finding) Herm hilton Active Problem 11/27/2019 Medical Group,[facility], [facility] [place] Menopause Menopause Problem Active 2019-11-27 Memoria present present 21:25:13 l (finding) (finding) Herm hilton Active Problem 11/27/2019 Medical Group,[facility], [facility] [place] 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 Memor ia hyperlipid hyperlipid 21:25:13 l emia emia Dariel (disorder) (disorder) Active Problem 11/27/2019 Medical [facility], [facility] [place] 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 21:25:13 l lung lung Dariel (finding) (finding) Active Problem 11/27/2019 Medical Group,[facility], [facility] [place] Neck pain Neck Problem Active 2019-11-27 Me moria (finding) pain 21:25:13 l (finding) Dariel Active Problem 11/27/2019 Medical [facility], [facility] [place] Osteoporos Osteoporo Problem Active 2019-11-27 Memoria is sis 21:25:13 l (disorder) (disorder) He rmann Active Problem 11/27/2019 Medical Group,[facility], [facility] [place] Atrophic Atrophic Problem Active 2019-11-27 Memoria vaginitis vaginitis 21:25:13 l (disorder) (disorder) He rmann Active Problem 11/27/2019 Medical Group,Misc her Neuro, [facility] [place] Hypertensi Hypertens Problem Active 2019-11-27 Memoria ve ernst 21:25:13 l disorder, disorder, Herm hilton systemic systemic arterial arterial (disorder) (disorder) Active Problem 11/27/2019 Medical Group Osteopenia Osteopeni Problem Active 2017-06-18 Memoria (disorder) a 03:07:06 l (disorder) Berhane n Active Problem 06/18/2017 Medical Group, [facility] [place] Body mass Body mass Problem Active 2016-07-24 Memoria index index 02:33:04 l index index Dariel - - overweight overweight (finding) (finding) Active Problem 07/24/2016 [facility] [place] Right Right Problem Active 2016-07-10 Memor ia lower lower 03:43:11 l quadrant quadrant Berhane ryan pain pain (finding) (finding) Active Problem 07/10/2016 [facility] [place] History of Past Illness Condition Condition Condition Status Onset Resolution Last Treating Co mments Source Name Details Category Date Date Treatment Clinician Date Other Other Problem 2019-01-29 2019-01-29 M emoria abnormal abnormal 2- 11:41:30 11:41:30 l and and 06:20: Dariel inconclusi inconclusi 36 ve ve findings findings on on diagnostic diagnostic imaging of imaging of breast breast 07/17/2018 01/29/2019 [facility] [place] Asymptomat Asymptoma Problem 2018-2019-01-26 2019-01-26 Memoria ic tic 07-08 12:07:51 12:07:51 l menopausal menopausal 16:48: He rmann state state 00 07/08/2018 01/26/2019 Medical Group Postmenopa Postmenop Problem 2018-2019-01-26 2019-01-26 Memoria usal ausal 07-08 12:07:51 12:07:51 l atrophic atrophic 16:48: Berhane ryan vaginitis vaginitis 00 07/08/2018 01/26/2019 Medical Group Leukoplaki Leukoplak Problem 2018-2019-01-26 2019-01-26 Memoria a of vulva ia of 07-08 12:07:51 12:07:51 l vulva 16:48: Dariel 07/08/2018 00 01/26/2019 Medical Group Age-relate Problem 2019-01-26 2019-01-26 Memoria d Age-relate 07-08 12:07:51 12:07:51 l osteoporos d 16:48: Berhane n is without osteoporos 00 current is without pathologic current al pathologic fracture al fracture 07/08/2018 01/26/2019 Medical Group Allergies, Adverse Reactions, Alerts Allergy Allergy Status Severity Reaction(s) Onset Inactive Treating Comm ents Source Name Type Date Date Clinician Penicill Propensi Active Hives As a [facility] adverse [facility]: Medical reaction 00 Center s PENICILL Allergy Active Hives [facility] 00:[facility]: Medical [facility] Center Penicill Propensi Active [facility] ins ty to 720 [facility] adverse 00:00: of reaction 00 Medicin s to e drug NO KNOWN Drug Active Univers ALLERGIE Class ity [facility] penicill penicill Active Memori a ins<sup> ins<sup> l 1</sup> 1</sup> Dariel dicyclom dicyclom Active Memori a ine<sup> ine<sup> l 2</sup> 2</sup> Dariel penicill penicill Active Memori a ins<sup> ins<sup> l 2</sup> 2</sup> Dariel Social History Social Habit Start Date Stop Date Quantity Comments Source History SDOH [facility] Std Medical Cent[facility] r Drinks History SDOH [facility] Alcohol Binge Medical Carina ter History SDOH [facility] Alcohol Comment Medical C enter Exposure to 2021-10-25 2021-11-04 Not sure University of SARS-CoV-2 00:00:00 11:31:00 [facility] (event) [place] Alcohol intake 2020-01-14 2020-01-[address] [facility] es 00:00:00 00:00:00 non-drinker of Medical Ce nter alcohol (finding) Tobacco use and 2020-01-07 2020-01-[address] Kiersten kes exposure 00:00:00 00:00:00 Medical Center History SDOH 2020-01-07 2020-01-[address] [facility] Alcohol Frequency 00:00:00 00:00:00 [facility] Social History 2018-08-01 2018-08-01 [facility] cary 14:27:23 14:27:23 Sex [birth year] CARMEL Joness 00:00:00 00:00:00 Medical Center Smoking Status Start Date Stop Date Source Unknown if ever smoked [facility] Never smoked tobacco [facility] ege of Medicine Medications Ordered Filled Start Stop Current Ordering Indication Dosage Frequency Signature Comments Components Source Medication Medication Date Date Medication? Clinician (SIG) Name Name atorvastati Yes 20mg Take 20 mg [facility] n (LIPITOR) 9-19 by mouth. Col lege 20 MG 09:04: of tablet 36 Medicin e PSYLLIUM OR Yes 1{packe Take 1 B aylor 02-27 t} Packet by College 09:04: mouth. of 36 Medicin e Calcium Yes 200mg Take 200 [facility] Carbonate 9-19 mg by Virgin 600 MG TABS 09:04: mouth. of 36 Medicin e glucosamine Yes 1{tbl} Take 1 [facility] -chondroiti - Tablet by Col lege n (COSAMIN 09:04: mouth 3 of DS) 500-400 36 times Medicin MG tablet daily. e Calcium 2019-06 Yes 200mg Take 200 [facility] Carbonate 1-16 mg by College 600 MG TABS 15:36: mouth. of 09 Medicin e Cholecalcif 2020- No Take by Ba ylor geovanna (D3 02-25 mouth. College HIGH 15:25: 00:00 of POTENCY) 50 06 :00 Medicin MCG (1999 e [place] CAPS atorvastati 2019-0 Yes 20mg Take 20 mg [facility] n (LIPITOR) 9-17 by mouth. Col lege 20 MG 15:24: of tablet 47 Medicin e PSYLLIUM OR Yes 1{packe Take 1 B aylor 9-17 t} Packet by College 15:24: mouth. of 47 Medicin e atorvastati 0 Yes 20mg Take 20 mg Сергей n (LIPITOR) 9-17 by mouth. Col lege 20 MG 15:24: of tablet 47 Medicin e PSYLLIUM OR 0 Yes 1{packe Take 1 B aylor 9-17 t} Packet by Virgin 15:24: mouth. of 47 Medicin e ibuprofen 2020-0 Yes [id number] 600mg Take 1 Tab Сергей (MOTRIN) 02-01 9105 by mouth [facility] 600 MG 00:00: every 6 of tablet 00 hours as Medicin needed for e Pain. ibuprofen 2020-0 Yes [id number] 600mg Take 1 Tab Сергей (MOTRIN) 02-01 9105 by mouth [facility] 600 MG 00:00: every 6 of tablet 00 hours as Medicin needed for e Pain. ibuprofen 2020-0 Yes [id number] 600mg Take 1 Tab Сергей (MOTRIN) 8 9105 by mouth [facility] 600 MG 00:00: every 6 of tablet 00 hours as Medicin needed for e Pain. atorvastati 2020-0 Yes 20mg Take 20 mg Сергей n (LIPITOR) 8-20 by mouth. Col lege 20 MG 15:26: of tablet 14 Medicin e Cholecalcif 2020-0 Yes Take by [place] eliecer geovanna (D3 8- mouth. College HIGH 15:26: of POTENCY) 50 14 Medicin MCG (1999 e [place]) CAPS PSYLLIUM OR 2020-0 Yes 1{packe Take 1 B aylor 8-20 t} Packet by [facility] 15:26: mouth. of 14 Medicin e aspirin 2020-0 2020- No 325mg Take 325 [facility] (GOODSENSE 01-15 09-07 mg by [facility] ASPIRIN) 00:00: 04:59 mouth. of 325 mg 00 :00 Medicin tablet e ibuprofen 2020-0 2020- No 600mg Take 600 [facility] (MOTRIN) 01-15 08-22 mg by Virgin 600 MG 00:00: 04:59 mouth. of tablet 00 :00 Medicin e atorvastati 2020-0 Yes 20mg QD Take [address] [facility] n (LIPITOR) 8-06 by mouth Luke s 20 MG 10:54: daily. Medical tablet 21 Center psyllium 2020-0 Yes 1{packe Take [address] (METAMUCIL) 8-06 t} packet by Norbert es powder 10:54: mouth as Medical 21 needed. Center cholecalcif 2020-0 Yes QD Take by [facility] geovanna, 8-06 mouth [facility] vitamin D3, 10:54: daily. Medi elmira 50 mcg 21 [place] (2,000 unit) Cap calcium 2020-0 Yes 200mg QD Take 200 [facility] carbonate 8-06 mg by [facility] (OS-ELMIRA) 10:54: mouth Medical 600 mg 21 daily. Center calcium (1,500 mg) Tab hydrocodone 2020-0 Yes 1{tbl} Take 1 Tab [facility] -acetaminop 8-04 by mouth Kelly ege hen ([employer]) 00:00: every 8 of 10-325 MG 00 hours as Medici n per tablet needed for e Pain. hydrocodone 2020-0 Yes 1{tbl} Take 1 Tab Сергей -acetaminop 8-04 by mouth Kelly ege hen ([employer]) 00:00: every 8 of 10-325 MG 00 hours as Medici n per tablet needed for e Pain. hydrocodone 2020-0 Yes 1{tbl} Take 1 Tab Сергей -acetaminop 8-04 by mouth Kelly ege hen ([employer]) 00:00: every 8 of 10-325 MG 00 hours as Medici n per tablet needed for e Pain. hydrocodone 2020-0 Yes 1{tbl} Take 1 Tab [facility] -acetaminop 8-04 by mouth Kelly ege hen ([employer]) 00:00: every 8 of 10-325 MG 00 hours as Medici n per tablet needed for e Pain. Levocetiriz 2020-0 Yes TAKE 1 [facility] ine 7-06 TABLET BY [facility] 00:00: MOUTH of ride 5 MG 00 EVERYDAY Medici n TABS AT BEDTIME e Levocetiriz 2020-0 Yes TAKE 1 [facility] ine 7-06 TABLET BY [facility] 00:00: MOUTH of ride 5 MG 00 EVERYDAY Medici n TABS AT BEDTIME e levocetiriz 2020-[address] [facility] in[facility] (XYZAL) 7-06 [facility] 5 MG tablet 00:00: Medica l 00 [place] Levocetiriz 2020-0 2020- No TAKE 1 [place] eliecer ine 7-06 09-17 TABLET BY [facility] 00:00: 00:00 MOUTH of ride 5 MG 00 :00 EVERYDAY Medici n TABS AT BEDTIME e Pseudoeph-B 2020-0 Yes TAKE 10 ML Сергей romphen-DM 6-29 BY MOUTH 4 Col lege 30-2-10 00:00: TIMES A of MG/5ML SYRP 00 DAY Medici n NEEDED e Pseudoeph-B 2019-0 Yes TAKE 10 ML [facility] romphen-DM 12-07 BY MOUTH 4 Col lege 00:00: TIMES A of MG/5ML SYRP 00 DAY Medici n NEEDED e Pseudoeph-B 2019-0 2020- No TAKE 10 ML [facility] romphen-DM 12-07 BY MOUTH 4 Co llege 00:00: 00:00 TIMES A of MG/5ML SYRP 00 :00 DAY Medici n NEEDED e LUMIGAN 2019-0 Yes INSTILL 1 [facility] 0.01 % 6-11 DROP INTO College ophthalmic 00:00: BOTH EYES of solution 00 AT BEDTIME Medic in e LUMIGAN 2020-0 Yes INSTILL 1 [facility] 0.01 % 6-11 DROP INTO College ophthalmic 00:00: BOTH EYES of solution 00 AT BEDTIME Medic in e LUMIGAN 2019-0 Yes INSTILL 1 [facility] 0.01 % 6-11 DROP INTO College ophthalmic 00:00: BOTH EYES of solution 00 AT BEDTIME Medic in e LUMIGAN 2020-0 Yes INSTILL 1 [facility] 0.01 % 6-11 DROP INTO College ophthalmic 00:00: BOTH EYES of solution 00 AT BEDTIME Medic in e bimatoprost 2019-0 Yes INSTILL [address] (LUMIGAN) 6-11 DROP INTO [facility] 0.01 % Drop 00:00: BOTH EYES M edical ophthalmic [address] solution LUMIGAN 2019-0 2021- No INSTILL 1 [facility] 0.01 % 6-11 02-27 DROP INTO College ophthalmic 00:00: 00:00 BOTH EYES o f solution 00 :00 AT BEDTIME Medic in e triamcinolo 2020-0 Yes See Admin B [facility] 11-17 [facility] (KENALOG) 00:00: ns. of 0.1 % cream 00 Medicin e triamcinolo 2020-0 Yes See Admin B [facility]ba 11-17 [facility] (KENALOG) 00:00: ns. of 0.1 % cream 00 Medicin e triamcinolo 2019-0 Yes See Admin B [facility] 11-17 [facility] (KENALOG) 00:00: ns. of 0.1 % cream 00 Medicin e triamcinolo 2020-0 Yes See Admin [facility] 11-17 [facility] 00:00: ns. of 0.1 % cream 00 Medicin e triamcinolo 2020-0 Yes PRN [facility] 11-17 [facility] (KENALOG) 00:00: Medical 0.1 % 00 [place] topical cream triamcinolo 2020-0 2021- No See Admin [facility] 11-17 09- [facility] 00:00: 00:00 ns. of 0.1 % cream 00 :00 Medicin e amlodipine 2020-0 Yes TAKE 1 [facility] (NORVASC) 5 4-28 TABLET BY Col lege MG tablet 00:00: MOUTH of 00 EVERY DAY Medicin e amlodipine 2020-0 Yes TAKE 1 [facility] (NORVASC) 5 4-28 TABLET BY Col lege MG tablet 00:00: MOUTH of 00 EVERY DAY Medicin e amlodipine 2020-0 Yes TAKE 1 [facility] (NORVASC) 5 4-28 TABLET BY Col lege MG tablet 00:00: MOUTH of 00 EVERY DAY Medicin e amlodipine 2020-0 Yes TAKE 1 [facility] (NORVASC) 5 4-28 TABLET BY Col lege MG tablet 00:00: MOUTH of 00 EVERY DAY Medicin e amlodipine 2020-0 Yes TAKE 1 [facility] (NORVASC) 5 4-28 TABLET BY Col lege MG tablet 00:00: MOUTH of 00 EVERY DAY Medicin e amLODIPine 2020-0 Yes TAKE 1 [facility] (NORVASC) 5 4-28 TABLET BY Norbert es MG tablet 00:00: MOUTH Medical 00 EVERY DAY [place] Calcium 600 2020-0 Yes 1 tab, PO, Memoria +D oral 4-22 Daily, # l tablet 16:09: 90 tab, 0 Berhane n 00 Refill(s) Calcium 600 2020-0 Yes 1 tab, PO, Memoria +D oral 4-22 Daily, # l tablet 16:09: 90 tab, 0 Berhane n 00 Refill(s) Vitamin D3 2020-0 Yes 1,000 Memori a 1000 intl 4-22 IntlUnit = l units oral 16:08: 1 cap, PO, H ermann capsule 00 Daily, # 100 cap, 0 Refill(s) Vitamin D3 2020-0 Yes 1,000 Memori a 1000 intl 4-22 IntlUnit = l units oral 16:08: 1 cap, PO, H ermann capsule 00 Daily, # 100 cap, 0 Refill(s) atorvastati 2020-0 Yes = 1 tab, Me moria n 20 mg 4-20 PO, Daily, l oral tablet 17:28: # 90 tab, H ermann 30 Refill(s) 4, Pharmacy: [facility]/pharma cy #[id number] atorvastati 2020-0 Yes = 1 tab, Me moria n 20 mg 4-20 PO, Daily, l oral tablet 17:28: # 90 tab, H ermann 30 Refill(s) 4, Pharmacy: [facility]/pharma cy #[id number] Dextrometho 2020-0 Yes 10 mL, PO, Memoria rphan 2-11 Q4H, # 120 l Hydrobromid 22:52: mL, 0 Jodi nn e 1 MG/ML / 00 Refill(s), [facility]: 10 MG/ML [facility] Oral [facility][id number] Solution Dextrometho 2020-0 Yes 10 mL, PO, Memoria rphan 2-11 Q4H, # 120 l Hydrobromid 22:52: mL, 0 Jodi nn e 1 MG/ML / 00 Refill(s), [facility]: 10 MG/ML [facility] Oral cy #[id number] Solution azithromyci 2020-0 Yes 500 mg = 1 Memoria n 500 mg 1-07 tab, PO, l oral tablet 20:36: Daily, X 5 Dariel 00 day, # 5 tab, 0 Refill(s), Pharmacy: [facility]/pharma cy #[id number] azithromyci 2020-0 Yes 500 mg = 1 Memoria n 500 mg 1-07 tab, PO, l oral tablet 20:36: Daily, X 5 [place] 00 day, # 5 tab, 0 Refill(s), Pharmacy: [facility] cy #[id number] omeprazole 2018- Yes 20 mg = 1 Me moria 20 mg oral 2-06 cap, PO, l delayed 16:30: Daily, 0 Berhane n release 00 Refill(s) capsule omeprazole 2018-06 Yes 20 mg = 1 Me moria 20 mg oral 2-06 cap, PO, l delayed 16:30: Daily, 0 Berhane n release 00 Refill(s) capsule doxycycline 2018-06 Yes 100 mg = 1 Memoria hyclate 100 1-27 tab, PO, l MG Oral 16:30: Q12H Dariel Tablet 00 Metronidazo 2018-06 Yes 500 mg = 1 Memoria le 500 MG -27 tab, PO, l Oral Tablet 16:30: Q12H, 0 Her hawk [Flagyl] 00 Refill(s) bismuth 2018-06 Yes 524 mg = 2 Vasile roberto subsalicyla 1-27 tab, CHEW, l te 262 MG 16:30: BID, 0 Berhane n Chewable 00 Refill(s) Tablet [Pepto-bism ol] doxycycline 2018-06 Yes 100 mg = 1 Memoria hyclate 100 1-27 tab, PO, l MG Oral 16:30: Q12H [place] Tablet 00 Metronidazo 2018-06 Yes 500 mg = 1 Memoria le 500 MG -27 tab, PO, l Oral Tablet 16:30: Q12H, 0 Her hawk [Flagyl] 00 Refill(s) bismuth 2018-06 Yes 524 mg = 2 Vasile roberto subsalicyla 1-27 tab, CHEW, l te 262 MG 16:30: BID, 0 Berhane n Chewable 00 Refill(s) Tablet [Pepto-bism ol] Acetaminoph 2018-06 Yes 325 mg = 1 Memoria en 325 MG 0-17 cap, PO, l Oral 18:46: TID, # 21 [place] Capsule 30 cap, 0 [Tylenol] Refill(s), Pharmacy: [facility] cy #[id number] Acetaminoph 2018-06 Yes 325 mg = 1 Memoria en 325 MG 0-17 cap, PO, l Oral 18:46: TID, # 21 Dariel Capsule 30 cap, 0 [Tylenol] Refill(s), Pharmacy: [facility] cy #[id number] azithromyci 2018-06 Yes 500 mg = 1 Memoria n 500 mg 0-17 tab, PO, l oral tablet 18:46: Daily, X 5 [place] 06 day, # 5 tab, 0 Refill(s), Pharmacy: [facility] #[id number] azithromyci 2018-06 Yes 500 mg = 1 Memoria n 500 mg 0-17 tab, PO, l oral tablet 18:46: Daily, X 5 Dariel 06 day, # 5 tab, 0 Refill(s), Pharmacy: [facility] cy #[id number] Fluticasone 2019 Yes 1 spray, Me moria propionate 0-17 NASAL, l 0.05 18:45: BID, # 16 [facility] MG/ACTUAT 12 gm, 0 Metered Refill(s), Dose Nasal [facility]: [facility] #[id number] Fluticasone 2018-06 Yes 1 spray, Me moria propionate 0-17 NASAL, l 0.05 18:45: BID, # 16 [place] MG/ACTUAT 12 gm, 0 Metered Refill(s), Dose Nasal [facility]acy: [facility] [Flonase] [facility] #[id number] Fluticasone 2018-06 No 1 spray, Me moria propionate 0-17 NASAL, l 0.05 18:38: BID, # 16 [place] MG/ACTUAT 00 gm, 0 Metered Refill(s), Dose Nasal Pharmacy: [facility] [Flonase] [facility] #[id number] Acetaminoph 2018-06 No 325 mg = 1 Memoria en 325 MG 0-17 cap, PO, l Oral 18:38: TID, # 21 [place] Capsule 00 cap, 0 [Tylenol] Refill(s), Pharmacy: [id number] 2018-06 No 500 mg = 1 Memoria n 500 mg 0-17 tab, PO, l oral tablet 18:38: Daily, X 5 [place] 00 day, # 5 tab, 0 Refill(s), Pharmacy: [facility] #[id number] Fluticasone 2018-06 No 1 spray, Me moria propionate 0-17 NASAL, l 0.05 18:38: BID, # 16 [place] MG/ACTUAT 00 gm, 0 Metered Refill(s), Dose Nasal Pharmacy: [facility] [Fl[facility]ase] [facility] #[id number] Acetaminoph 2018-06 No 325 mg = 1 Mem[facility] en 325 MG 0-17 cap, PO, l Oral 18:38: TID, # 21 [place] Capsule 00 cap, 0 [Tylenol] Refill(s), Pharmacy: [facility] #[id number] azithromyci 2018-06 No 500 mg = 1 Memoria n 500 mg 0-17 tab, PO, l oral tablet 18:38: Daily, X 5 [place] 00 day, # 5 tab, 0 Refill(s), [id number] Levofloxaci Yes 500 mg = 1 Mem[facility] n 500 MG 7-24 tab, PO, l Oral Tablet 13:38: Q24H, X 7 [place] [place] [Levaquin] 00 day, # 7 tab, 0 Refill(s), [id number] Levofloxaci Yes 500 mg = 1 Memoria n 500 MG 7-24 tab, PO, l Oral Tablet 13:38: Q24H, X 7 [place] [Levaquin] 00 day, # 7 tab, 0 Refill(s), Pharmacy: [facility] #[id number] Levofloxaci No 500 mg = 1 Memoria n 500 MG 1-29 tab, PO, l Oral Tablet 14:52: Q24H, X 7 [place] [Levaquin] 00 day, # 7 tab, 0 Refill(s), Pharmacy: [facility] #[id number] Levofloxaci No 500 mg = 1 Memoria n 500 MG 1-29 tab, PO, l Oral Tablet 14:52: Q24H, X 7 [place] [Levaquin] 00 day, # 7 tab, 0 Refill(s), Pharmacy: [facility] #[id number] Levofloxaci 2017-06 No 500 mg = 1 Memoria n 500 MG 0-18 tab, PO, l Oral Tablet 18:59: Q24H, X 10 [place] [Levaquin] 00 day, # 10 tab, 0 Refill(s), [id number] Levofloxaci 2017-06 No 500 mg = 1 Memoria n 500 MG 0-18 tab, PO, l Oral Tablet 18:59: Q24H, X 10 [place] [Levaquin] 00 day, # 10 tab, 0 Refill(s), Pharmacy: [facility] #[id number] Codeine No See Memoria Phosphate 2 9-25 Instructio l MG/ML / 21:35: ns, PRN [place] Guaifenesin 53 cough, 20 MG/ML 5-10 mL PO Oral Q6H prn Solution cough, # [Cheratussi 240 mL, 1 n] Refill(s) Codeine No See [facility] Phosphate 2 9-25 Instructio l MG/ML / 21:35: ns, PRN [place] Guaifenesin 53 cough, 20 MG/ML 5-10 mL PO Oral Q6H prn Solution cough, # [Cheratussi 240 mL, 1 n] Refill(s) valacyclovi No 1 gm = 1 Me moria r 1000 MG 9-25 tab, PO, l Oral Tablet 21:35: ONCE, # 1 [place] [Valtrex] 00 tab, 0 Refill(s), Pharmacy: [facility] #[id number] valacyclovi No 1 gm = 1 Me moria r 1000 MG 9-25 tab, PO, l Oral Tablet 21:35: ONCE, # 1 [place] [Valtrex] 00 tab, 0 Refill(s), Pharmacy: [facility] #[id number] Hydrocortis No 1 appl, Mem oria one 25 9-05 TOP, BID, l MG/ML 20:06: X 14 day, [facility]iel Topical 00 # 30 gm, 0 Cream Refill(s), Pharmacy: [facility] #[id number] Hydrocortis No 1 appl, Mem oria one 25 9-05 TOP, BID, l MG/ML 20:06: X 14 day, [place] Topical 00 # 30 gm, 0 Cream Refill(s), Pharmacy: [facility] #[id number] baclofen 10 Yes See Memori a mg oral 4-16 Instructio l tablet 17:59: ns, # 90 [place] 43 tab, TAKE 1 TABLET BY MOUTH 3 TIMES A DAY NEEDED FOR SPASMS, Pharmacy: [facility] #[id number] baclofen 10 Yes See Memori a mg oral 4-16 Instructio l tablet 17:59: ns, # 90 [place] 43 tab, TAKE 1 TABLET BY MOUTH 3 TIMES A DAY NEEDED FOR SPASMS, Pharmacy: [facility] #[id number] baclofen 10 No See Memori a mg oral 3-13 Instructio l tablet 19:36: ns, # 90 [place] 08 tab, TAKE 1 TABLET BY MOUTH 3 TIMES A DAY NEEDED FOR SPASMS, Pharmacy: [facility] #[id number] baclofen 10 No See Memori a mg oral 3-13 Instructio l tablet 19:36: ns, # 90 [place] 08 tab, TAKE 1 TABLET BY MOUTH 3 TIMES A DAY NEEDED FOR SPASMS, Pharm[facility]: [facility] #[id number] tramadol No 50 mg = 1 Vasile roberto hydrochlori 2-23 tab, PO, l de 50 MG 20:52: BID, X 10 [place] Oral Tablet 00 day, # 10 tab, 0 Refill(s) tramadol No 50 mg = 1 Vasile roberto hydrochlori 2-23 tab, PO, l de 50 MG 20:52: BID, X 10 [place] Oral Tablet 00 day, # 10 tab, 0 Refill(s) baclofen 10 No 10 mg = 1 M emoria mg oral 2-14 tab, PO, l tablet 20:01: TID, PRN [place] 00 Spasms, # 90 tab, 0 Refill(s), [id number] baclofen No 10 mg = 1 M emoria mg oral 2-14 tab, PO, l tablet 20:01: TID, PRN [place] 00 Spasms, # 90 tab, 0 Refill(s), Pharmacy: [facility] #[id number] Triamcinolo Yes See Memori a ne 1-18 Instructio l Acetonide 1 15:48: ns, apply [place] MG/ML 00 small Topical amount to Cream affected area twice/day until symptoms resolved., # 60 gm, 1 Refill(s), Pharmacy: [facility] #[id number] Triamcinolo Yes See Memori a ne 1-18 Instructio l Acetonide 1 15:48: ns, apply [place] MG/ML 00 small Topical amount to Cream affected area twice/day until symptoms resolved., # 60 gm, 1 Refill(s), Pharmacy: [facility] #[id number] atorvastati No 20 mg = 1 M emoria n 20 mg -11 tab, PO, l oral tablet 19:41: Daily, # [place] 00 90 tab, 0 Refill(s), Pharmacy: [facility] #[id number] atorvastati No 20 mg = 1 M emoria n 20 mg 1-11 tab, PO, l oral tablet 19:41: Daily, # [place] 00 90 tab, 0 Refill(s), Pharmacy: [facility] #[id number] atorvastati 2017-0 Yes 20 mg = 1 M emoria n 20 mg 1-11 tab, PO, l oral tablet 19:40: Daily, # [place] 15 90 tab, 5 Refill(s), Pharmacy: [facility] #[id number] atorvastati Yes 20 mg = 1 M emoria n 20 mg 1-11 tab, PO, l oral tablet 19:40: Daily, # [place] 15 90 tab, 5 Refill(s), Pharmacy: [facility] #[id number] amLODIPine Yes See Memoria 5 mg oral 1-04 Instructio l tablet 18:47: ns, TAKE 1 Jodi nn 05 TABLET BY MOUTH DAILY, # 90 tab, 1 Refill(s), Pharmacy: [facility] #[id number] amLODIPine Yes See Memoria 5 mg oral 1-04 Instructio l tablet 18:47: ns, TAKE 1 Jodi nn 05 TABLET BY MOUTH DAILY, # 90 tab, 1 Refill(s), Pharmacy: [facility] #[id number] levofloxaci 2017-0 Yes 500 mg = 1 Memoria n 500 mg 1-04 tab, PO, l oral tablet 14:44: Daily, X [place] 00 10 day, # 10 tab, 0 Refill(s), Pharmacy: [facility] #[id number], DC the Zithromax order levofloxaci 2017-0 Yes 500 mg = 1 Memoria n 500 mg 1-04 tab, PO, l oral tablet 14:44: Daily, X [place] 00 10 day, # 10 tab, 0 Refill(s), Pharmacy: [facility] #[id number], DC the Zithromax order Codeine 2017- Yes See Memoria Phosphate 2 1-04 Instructio l MG/ML / 14:40: ns, PRN [place] Guaifenesin 00 cough, 20 MG/ML 5-10 mL PO Oral Q6H prn Solution cough, # [Cheratussi 240 mL, 1 n] Refill(s) Codeine 2017-0 Yes See [facility] Phosphate 2 1-04 Instructio l MG/ML / 14:40: ns, PRN [place] Guaifenesin 00 cough, 20 MG/ML 5-10 mL PO Oral Q6H prn Solution cough, # [Cheratussi 240 mL, 1 n] Refill(s) { No See Memoria (Azithromyc 1-04 Instructio l in 250 MG 14:39: ns, Take 2 [place] Oral Tablet 00 tablets by [Zithromax] mouth the ) } Pack first day [Z-PAKS] then 1 tablet by mouth days 2-5., X 5 day, # 6 tab, 0 Refill(s), Pharmacy: [facility] #[id number] {6 No See Memoria (Azithromyc 1-04 Instructio l in 250 MG 14:39: ns, Take 2 [place] Oral Tablet 00 tablets by [Zithromax] mouth the ) } Pack first day [Z-PAKS] then 1 tablet by mouth days 2-5., X 5 day, # 6 tab, 0 Refill(s), Pharmacy: [facility] #[id number] Immunizations Ordered Filled Immunization Date Status Comments [facility] e Immunization Name Name SARS-COV-2 COVID-19 2021-03-29 Completed [facility] PFIZER VACCINE 00:00:00 [facility] SARS-COV-2 COVID-19 2021-03-29 Completed [facility] of PFIZER VACCINE 00:00:00 [facility] SARS-COV-2 COVID-19 2021-03-29 Completed [facility] of PFIZER VACCINE 00:00:00 [facility] SARS-COV-2 COVID-19 2020-08-23 Completed [facility] of PFIZER VACCINE 00:00:00 [facility] SARS-COV-2 COVID-19 2020-08-23 Completed [facility] of PFIZER VACCINE 00:00:00 [facility] SARS-COV-2 COVID-19 2020-08-23 Completed [facility] of PFIZER VACCINE 00:00:00 [facility] SARS-COV-2 COVID-19 2020-08-23 Completed [facility] of PFIZER VACCINE 00:00:00 [facility] SARS-COV-2 COVID-19 2020-08-23 Completed [facility] of PFIZER VACCINE 00:00:00 [facility] SARS-COV-2 COVID-19 2020-08-23 Completed [facility] of PFIZER VACCINE 00:00:00 [facility] SARS-COV-2 COVID-19 2020-08-02 Completed [facility] of PFIZER VACCINE 00:00:00 [facility] SARS-COV-2 COVID-19 2020-08-02 Completed [facility] of PFIZER VACCINE 00:00:00 [facility] SARS-COV-2 COVID-19 2020-08-02 Completed [facility] of PFIZER VACCINE 00:00:00 [facility] SARS-COV-2 COVID-19 2020-08-02 Completed [facility] of PFIZER VACCINE 00:00:00 [facility] SARS-COV-2 COVID-19 2020-08-02 Completed [facility] of PFIZER VACCINE 00:00:00 [facility] SARS-COV-2 COVID-19 2020-08-02 Completed [facility] of PFIZER VACCINE 00:00:00 [facility] influenza virus 2019-02-27 Completed [facility] vaccine, 15:54:00 inactivated influenza virus 2019-02-27 Completed [facility] vaccine, 15:54:00 inactivated pneumococcal 2018-03-05 Completed [facility] hawk 13-valent vaccine 21:02:00 pneumococcal 2018-03-05 Completed [facility] hawk 13-valent vaccine 21:02:00 influenza virus 2018-03-05 Completed [facility] vaccine, 21:01:00 inactivated influenza virus 2018-03-05 Completed [facility] [place] vaccine, 21:01:00 inactivated influenza virus 2017-04-27 Completed [facility] [place] vaccine, 16:16:00 inactivated influenza virus 2017-04-27 Completed [facility] [place] vaccine, 16:16:00 inactivated influenza virus 2016-02-07 Completed [facility] vaccine, 18:11:00 inactivated influenza virus 2016-02-07 Completed [facility] vaccine, 18:11:00 inactivated influenza virus 2015-04-21 Completed [facility] [place] vaccine, 22:30:00 inactivated influenza virus 2015-04-21 Completed [facility] vaccine, 22:30:00 inactivated diphtheria/pertussi 2014-04-23 Completed Alondra donaldson, acel/tetanus 06:00:00 adult<sup>3</sup> influenza virus 2014-04-23 Completed [facility] [place] vaccine, 06:00:00 inactivated<sup>1</ sup> diphtheria/pertussi 2014-04-23 Completed Mem[facility] [place] s, acel/tetanus 06:00:00 adult<sup>1</sup> influenza virus 2014-04-23 Completed [facility] vaccine, 06:00:00 inactivated<sup>3</ sup> influenza virus 2014-04-23 Completed [facility] vaccine, 06:00:00 inactivated<sup>1</ sup> diphtheria/pertussi 2014-04-23 Completed [facility] [place] s, acel/tetanus 06:00:00 adult<sup>3</sup> diphtheria/pertussi 2014-04-23 Completed [facility] [place] s, acel/tetanus 06:00:00 adult<sup>1</sup> influenza virus 2014-04-23 Completed [facility] [place] vaccine, 06:00:00 inactivated<sup>3</ sup> Hx influenza 2013-04-24 Completed [facility] hawk vaccine-unspecified 15:42:20 <sup>4</sup> Hx influenza 2013-04-24 Completed [facility] hawk vaccine-unspecified 15:42:20 <sup>2</sup> Hx influenza 2013-04-24 Completed [facility] hawk vaccine-unspecified 15:42:20 <sup>4</sup> Hx influenza 2013-04-24 Completed [facility] hawk vaccine-unspecified 15:42:20 <sup>2</sup> influenza virus 2013-04-24 Completed [facility] [place] vaccine, 06:00:00 inactivated<sup>2</ sup> influenza virus 2013-04-24 Completed [facility] [place] vaccine, 06:00:00 inactivated<sup>4</ sup> influenza virus 2013-04-24 Completed [facility] vaccine, 06:00:00 inactivated<sup>2</ sup> influenza virus 2013-04-24 Completed [facility] [place] vaccine, 06:00:00 inactivated<sup>4</ sup> zoster vaccine 2012-09-18 Completed [facility] live<sup>5</sup> 19:50:44 zoster vaccine 2012-09-18 Completed [facility] live<sup>6</sup> 19:50:44 zoster vaccine 2012-09-18 Completed [facility] live<sup>5</sup> 19:50:44 zoster vaccine 2012-09-18 Completed [facility] H cary live<sup>6</sup> 19:50:44 pneumococcal 2012-04-17 Completed [facility] Her hawk 23-valent 15:36:31 vaccine<sup>6</sup> pneumococcal 2012-04-17 Completed [facility] Her hawk 23-valent 15:36:31 vaccine<sup>5</sup> pneumococcal 2012-04-17 Completed [facility] Her hawk 23-valent 15:36:31 vaccine<sup>6</sup> pneumococcal 2012-04-17 Completed [facility] Her hawk 23-valent 15:36:31 vaccine<sup>5</sup> Vital Signs Vital Name Observation Time Observation Value Comments Source HEIGHT 2019-12-29 00:00:00 165.1 cm WEIGHT 2019-12-29 00:00:00 77.7 kg Body height 2022-02-27 14:03:00 165.1 cm [facility] [employer] Body weight 2022-02-27 14:03:00 74.844 kg [facility] [employer] BMI 2022-02-27 14:03:00 27.46 kg/m2 [facility] [employer] [facility] Body weight 2020-04-26 15:28:00 73.483 kg [facility] [employer] BMI 2020-04-26 15:28:00 26.96 kg/m2 [facility] [employer] [facility] Systolic blood 2020-04-26 15:28:00 172 mm[Hg] [facility] pressure Medicine Diastolic blood 2020-04-26 15:28:00 73 mm[Hg] [facility] pressure Medicine Heart rate 2020-04-26 15:28:00 72 /min [facility] [employer] Body height 2020-04-26 15:28:00 165.1 cm [facility] [employer] [facility] Body weight 2020-04-26 15:28:00 73.483 kg [facility] BMI 2020-04-26 15:28:00 26.96 kg/m2 [facility] [employer] Systolic blood 2020-04-26 15:28:00 172 mm[Hg] [facility] pressure Medicine Diastolic blood 2020-04-26 15:28:00 73 mm[Hg] [facility] Medicine Heart rate 2020-04-26 15:28:00 72 /min [facility] Body height 2020-04-26 15:28:00 165.1 cm [facility] Body height 2020-02-26 15:24:00 165.1 cm [facility] Body weight 2020-02-26 15:24:00 73.483 kg [facility] BMI 2020-02-26 15:24:00 26.96 kg/m2 [facility] [employer] Body height 2020-02-26 15:24:00 165.1 cm [facility] [employer] Body weight 2020-02-26 15:24:00 73.483 kg [facility] BMI 2020-02-26 15:24:00 26.96 kg/m2 [facility] Body height 2020-01-29 15:25:00 165.1 cm [facility] [employer] Body weight 2020-01-29 15:25:00 73.483 kg [facility] BMI 2020-01-29 15:25:00 26.96 kg/m2 [facility] Body height 2020-01-29 15:25:00 165.1 cm [facility] [employer] Body weight 2020-01-29 15:25:00 73.483 kg [facility] BMI 2020-01-29 15:25:00 26.96 kg/m2 [facility] [employer] HEIGHT 2019-12-29 00:00:00 165.1 cm WEIGHT 2019-12-29 00:00:00 77.7 kg Body height 2019-12-29 14:22:00 165.1 cm [facility] Body weight 2019-12-29 14:22:00 73.483 kg [facility] BMI 2019-12-29 14:22:00 26.96 kg/m2 [facility] Body height 2019-12-29 14:22:00 165.1 cm [facility] Body weight 2019-12-29 14:22:00 73.483 kg [facility] BMI 2019-12-29 14:22:00 26.96 kg/m2 [facility] Height 2019-10-01 15:14:00 160.02 cm [facility] Weight 2019-10-01 15:14:00 [facility] BMI Calculated 2019-10-01 15:14:00 [facility] [place] Systolic (mm Hg) 2019-10-01 15:14:00 Vasile rial [place] Diastolic (mm Hg) 2019-10-01 15:14:00 Mem orial [place] Heart Rate 2019-10-01 15:14:00 [facility] Respitory Rate 2019-10-01 15:14:00 [facility]ori [facility] [place] Temperature Oral (F) 2019-10-01 15:14:00 97.8 F [facility] Systolic (mm Hg) 2019-08-14 15:17:00 Vasile rial [place] Diastolic (mm Hg) 2019-08-14 15:17:00 Mem orial [place] Heart Rate 2019-08-14 15:17:00 [facility] [place] Weight 2019-08-14 15:17:00 [facility] [place] Height 2019-07-22 22:18:00 160.02 cm [facility] [place] Weight 2019-07-22 22:18:00 [facility] [place] BMI Calculated 2019-07-22 22:18:00 Memori al [place] Systolic (mm Hg) 2019-07-22 22:18:00 Vasile rial [place] Diastolic (mm Hg) 2019-07-22 22:18:00 Mem o[facility] [place] Heart Rate 2019-07-22 22:18:00 [facility] Temperature Oral (F) 2019-07-22 22:18:00 97.6 F [facility] [place] Systolic (mm Hg) 2019-06-17 19:58:00 Vasile rial [place] Diastolic (mm Hg) 2019-06-17 19:58:00 Mem orial [place] Heart Rate 2019-06-17 19:58:00 [facility] [place] Respitory Rate 2019-06-17 19:58:00 [facility]ori al [place] Height 2019-06-17 19:58:00 165.1 cm [facility] [place] Weight 2019-06-17 19:58:00 [facility] [place] BMI Calculated 2019-06-17 19:58:00 [facility] [place] Height 2019-05-16 16:27:00 160.02 cm [facility] [place] Weight 2019-05-16 16:27:00 [facility] BMI Calculated 2019-05-16 16:27:00 Memori al [place] Systolic (mm Hg) 2019-05-16 16:27:00 Vasile rial [place] Diastolic (mm Hg) 2019-05-16 16:27:00 Mem orial [place] Heart Rate 2019-05-16 16:27:00 [facility] [place] Temperature Oral (F) 2019-05-16 16:27:00 97.9 F [facility] Height 2019-04-02 14:23:00 160.02 cm [facility] Systolic (mm Hg) 2019-04-02 14:23:00 Vasile rial [place] Diastolic (mm Hg) 2019-04-02 14:23:00 [facility] Heart Rate 2019-04-02 14:23:00 [facility] [place] Respitory Rate 2019-04-02 14:23:00 Memori al [place] Temperature Oral (F) 2019-04-02 14:23:00 98.1 F [facility] [place] Weight 2019-04-02 14:23:00 [facility] BMI Calculated 2019-04-02 14:23:00 [facility] [place] Systolic (mm Hg) 2019-03-27 18:17:00 Vasile rial [place] Diastolic (mm Hg) 2019-03-27 18:17:00 Mem orial [place] Heart Rate 2019-03-27 18:17:00 [facility] [place] Respitory Rate 2019-03-27 18:17:00 Memori al [place] Temperature Oral (F) 2019-03-27 18:17:00 98.3 F [facility] Height 2019-03-27 18:17:00 165.1 cm [facility] [place] Weight 2019-03-27 18:17:00 [facility] [place] BMI Calculated 2019-03-27 18:17:00 Memori al [place] Systolic (mm Hg) 2019-02-27 14:53:00 Vasile rial [place] Diastolic (mm Hg) 2019-02-27 14:53:00 [facility] Heart Rate 2019-02-27 14:53:00 [facility] [place] Weight 2019-02-27 14:53:00 [facility] [place] Systolic (mm Hg) 2019-01-01 13:09:00 Vasile rial [place] Diastolic (mm Hg) 2019-01-01 13:09:00 Mem [facility] [place] Temperature Oral (F) 2019-01-01 13:09:00 98.0 F [facility] [place] Heart Rate 2019-01-01 13:09:00 [facility] Weight 2019-01-01 13:09:00 [facility] BMI Calculated 2018-11-15 14:02:00 [facility] [place] Weight 2018-11-15 14:02:00 [facility] Systolic (mm Hg) 2018-11-15 14:02:00 Vasile rial [place] Diastolic (mm Hg) 2018-11-15 14:02:00 Mem o[facility] [place] Temperature Oral (F) 2018-11-15 14:02:00 97.6 F [facility] Heart Rate 2018-11-15 14:02:00 [facility] Height 2018-11-15 14:02:00 160.02 cm [facility] [place] BMI Calculated 2018-09-23 15:26:00 [facility] [place] Weight 2018-09-23 15:26:00 [facility] Height 2018-09-23 15:26:00 160.02 cm [facility] Temperature Oral (F) 2018-09-23 15:26:00 97.5 F [facility] [place] Heart Rate 2018-09-23 15:26:00 [facility] Respitory Rate 2018-09-23 15:26:00 [facility] [place] Systolic (mm Hg) 2018-09-23 15:26:00 Vasile rial [place] Diastolic (mm Hg) 2018-09-23 15:26:00 [facility] Weight 2018-09-10 21:14:00 [facility] [place] Temperature Oral (F) 2018-09-10 21:14:00 97.6 F [facility] [place] Respitory Rate 2018-09-10 21:14:00 [facility] Heart Rate 2018-09-10 21:14:00 [facility] [place] Systolic (mm Hg) 2018-09-10 21:14:00 Vasile rial [place] Diastolic (mm Hg) 2018-09-10 21:14:00 [facility] Height 2018-08-01 14:26:00 160.02 cm [facility] [place] Weight 2018-08-01 14:26:00 [facility] [place] BMI Calculated 2018-08-01 14:26:00 [facility] [place] Respitory Rate 2018-08-01 14:26:00 [facility] [place] Heart Rate 2018-08-01 14:26:00 [facility] Systolic (mm Hg) 2018-08-01 14:26:00 Vasile [facility] [place] Diastolic (mm Hg) 2018-08-01 14:26:00 Mem [facility] [place] Systolic (mm Hg) 2018-07-09 14:06:00 Vasile [facility] Diastolic (mm Hg) 2018-07-09 14:06:00 Mem [facility] [place] Heart Rate 2018-07-09 14:06:00 [facility] Temperature Oral (F) 2018-07-09 14:06:00 98.4 F [facility] [place] Weight 2018-07-09 14:06:00 [facility] [place] Systolic (mm Hg) 2018-07-08 16:29:00 Vasile rial [place] Diastolic (mm Hg) 2018-07-08 16:29:00 [facility] Heart Rate 2018-07-08 16:29:00 [facility] [place] Height 2018-07-08 16:29:00 165.1 cm [facility] [place] Weight 2018-07-08 16:29:00 [facility] BMI Calculated 2018-07-08 16:29:00 [facility] [place] Weight 2018-05-16 15:56:00 [facility] Respitory Rate 2018-05-16 15:56:00 [facility] [place] Temperature Oral (F) 2018-05-16 15:56:00 98.2 F [facility] Heart Rate 2018-05-16 15:56:00 [facility] [place] Systolic (mm Hg) 2018-05-16 15:56:00 Vasile rial [place] Diastolic (mm Hg) 2018-05-16 15:56:00 Mem [facility] BMI Calculated 2018-03-28 18:21:00 [facility] [place] Weight 2018-03-28 18:21:00 [facility] [place] Height 2018-03-28 18:21:00 160.02 cm [facility] Heart Rate 2018-03-28 18:21:00 [facility] Temperature Oral (F) 2018-03-28 18:21:00 98.2 F [facility] Systolic (mm Hg) 2018-03-28 18:21:00 Vasile [facility] Diastolic (mm Hg) 2018-03-28 18:21:00 [facility] Weight 2018-03-25 14:36:00 [facility] [place] BMI Calculated 2018-03-25 14:36:00 [facility] [place] Height 2018-03-25 14:36:00 160.02 cm [facility] [place] Temperature Oral (F) 2018-03-25 14:36:00 97.8 F [facility] Heart Rate 2018-03-25 14:36:00 [facility] [place] Respitory Rate 2018-03-25 14:36:00 [facility] [place] Systolic (mm Hg) 2018-03-25 14:36:00 Vasile [facility] Diastolic (mm Hg) 2018-03-25 14:36:00 [facility] [place] BMI Calculated 2018-03-08 14:35:00 [facility] Weight 2018-03-08 14:35:00 [facility] Heart Rate 2018-03-08 14:35:00 [facility] Temperature Oral (F) 2018-03-08 14:35:00 97.8 F [facility] [place] Systolic (mm Hg) 2018-03-08 14:35:00 Vasile [facility] Diastolic (mm Hg) 2018-03-08 14:35:00 [facility] Height 2018-03-08 14:35:00 165.1 cm [facility] Weight 2018-03-05 20:47:00 [facility] Systolic (mm Hg) 2018-03-05 20:47:00 Vasile rial [place] Diastolic (mm Hg) 2018-03-05 20:47:00 [facility] Heart Rate 2018-03-05 20:47:00 [facility] [place] Temperature Oral (F) 2018-03-05 20:47:00 98.3 F [facility] [facility] Respitory Rate 2018-03-05 20:47:00 [facility] [place] Height 2018-02-13 19:12:00 161.29 cm [facility] Temperature Oral (F) 2018-02-13 19:12:00 98.1 F [facility] Heart Rate 2018-02-13 19:12:00 [facility] Respitory Rate 2018-02-13 19:12:00 [facility] Systolic (mm Hg) 2018-02-13 19:12:00 Vasile rial [facility] Diastolic (mm Hg) 2018-02-13 19:12:00 Mem [facility] Weight 2018-02-13 19:12:00 [facility] BMI Calculated 2018-02-13 19:12:00 [facility] Weight 2017-10-31 16:55:00 [facility] [place] Height 2017-10-31 16:55:00 165.1 cm [facility] [place] BMI Calculated 2017-10-31 16:55:00 [facility] Heart Rate 2017-10-31 16:55:00 [facility] [place] Temperature Oral (F) 2017-10-31 16:55:00 98.8 F [facility] [place] Systolic (mm Hg) 2017-10-31 16:55:00 Vasile rial Dariel Diastolic (mm Hg) 2017-10-31 16:55:00 Mem [facility] BMI Calculated 2017-09-19 14:28:00 [facility] Weight 2017-09-19 14:28:00 [facility] Height 2017-09-19 14:28:00 162.56 cm [facility] [place] Systolic (mm Hg) 2017-09-19 14:28:00 Vasile rial [facility] Diastolic (mm Hg) 2017-09-19 14:28:00 Mem o[facility] Respitory Rate 2017-09-19 14:28:00 [facility] Heart Rate 2017-09-19 14:28:00 [facility] Temperature Oral (F) 2017-09-19 14:28:00 98.2 F [facility] [place] Weight 2017-08-28 20:25:00 [facility] Heart Rate 2017-08-28 20:25:00 [facility] Systolic (mm Hg) 2017-08-28 20:25:00 Vasile rial [facility] Diastolic (mm Hg) 2017-08-28 20:25:00 [facility] [place] Systolic (mm Hg) 2017-08-28 19:58:00 Vasile [facility] [place] Diastolic (mm Hg) 2017-08-28 19:58:00 [facility] [place] Heart Rate 2017-08-28 19:58:00 [facility] Weight 2017-08-28 19:58:00 [facility] [place] Weight 2017-08-03 20:19:00 [facility] [place] Temperature Oral (F) 2017-08-03 20:19:00 97.9 F [facility] Systolic (mm Hg) 2017-08-03 20:19:00 Vasile rial Dariel Diastolic (mm Hg) 2017-08-03 20:19:00 Mem o[facility] Heart Rate 2017-08-03 20:19:00 [facility] Temperature Oral (F) 2017-07-25 19:39:00 97.4 F [facility] Systolic (mm Hg) 2017-07-25 19:39:00 Vasile rial [facility] Diastolic (mm Hg) 2017-07-25 19:39:00 Mem o[facility] Heart Rate 2017-07-25 19:39:00 [facility] Weight 2017-07-25 19:39:00 [facility] [place] Height 2017-06-28 15:25:00 165.1 cm [facility] [place] Weight 2017-06-28 15:25:00 [facility] BMI Calculated 2017-06-28 15:25:00 [facility] [place] Heart Rate 2017-06-28 15:25:00 [facility] [place] Systolic (mm Hg) 2017-06-28 15:25:00 Vasile rial [facility] Diastolic (mm Hg) 2017-06-28 15:25:00 [facility] [place] Temperature Oral (F) 2017-06-14 14:26:00 97.8 F [facility] Weight 2017-06-14 14:26:00 [facility] [place] Systolic (mm Hg) 2017-06-14 14:26:00 Vasile rial [place] Diastolic (mm Hg) 2017-06-14 14:26:00 Mem o[facility] Heart Rate 2017-06-14 14:26:00 [facility] Weight 2017-04-27 15:20:00 [facility] [place] Height 2017-04-27 15:20:00 163.83 cm [facility] BMI Calculated 2017-04-27 15:20:00 [facility] Systolic (mm Hg) 2017-04-27 15:20:00 Vasile rial [facility] Diastolic (mm Hg) 2017-04-27 15:20:00 [facility] [place] Temperature Oral (F) 2017-04-27 15:20:00 98.5 F [facility] Heart Rate 2017-04-27 15:20:00 [facility] Respitory Rate 2017-04-27 15:20:00 [facility] Procedures Procedure Date / Time Performing Clinician Source Performed SARS-COV-2 COVID-19 2021-03-29 20:09:48 Doctor Unassigned, No [facility] [place] VACCINE,0.3ML,IM Name [facility] ([facility]) Mammogram 2018-07-08 06:00:00 [facility] Her hawk Cataract surgery 2018-06-24 06:00:00 [facility] Jared rmann Removal impacted 2018-03-08 15:45:00 [facility] Jared salmonann cerumen requiring instrumentation, unilateral Colonoscopy<sup>1</sup> 2016-07-19 06:00:00 Vasile rial Dariel Procedure on 2013-10-09 05:00:00 [facility] Her hawk wrist<sup>2</sup> Colonoscopy 2012-12-18 05:00:00 [facility] Her hawk CEIOL - Cataract 2011-02-13 05:00:00 [facility] Jared salmonann extraction and insertion of intraocular lens<sup>3</sup> Arthroscopy of 2010-06-11 00:00:00 [facility] Her hawk knee<sup>4</sup> CRIS BSO - Total 2000-06-11 00:00:00 [facility] Her hawk abdominal hysterectomy and bilateral salpingo-oophorectomy<s up>5</sup> Pneumococcal [facility] vaccination<sup>7</sup> Simple dental [facility] extraction<sup>9</sup> Bunionectomy<sup>6</sup [facility] > Rotator cuff [facility] repair<sup>8</sup> Plan of Care Planned Activity Planned Date Details Comments Source Future Scheduled 2022-06-[address] [facility] Test 00:00:00 (12+) [code = Medical Center DEPRESSION SCREENING (12+)] Future Scheduled 2022-06-11 FALLS RISK SCREENING [facility] Test 00:00:00 [code = FALLS RISK Medical C enter SCREENING] Future Scheduled 2022-02-27 TETANUS SHOT (ADULT) [facility] Test 09:12:20 [code = TETANUS SHOT of Medi cine (ADULT)] Future Scheduled 2022-02-27 BMI FOLLOW UP PLAN [facility] Test 09:12:20 [code = BMI FOLLOW of Medici ne UP PLAN] Future Scheduled 2022-02-27 ZOSTER VACCINE (1 of [facility] Test 09:12:20 2) [code = ZOSTER of Medicin e VACCINE (1 of 2)] Future Scheduled 2022-02-27 Screening for [facility] Test 09:12:20 osteoporosis of Medicine (procedure) [code = 394645686] Future Scheduled 2022-02-27 Pneumococcal 65+ (1 [employer] Test 09:12:20 - PCV) [code = of Medicine Pneumococcal 65+ (1 - PCV)] Future Scheduled 2022-02-27 MEDICARE AWV [facility] [employer] Test 09:12:20 (Initial) [code = of Medicin e MEDICARE AWV (Initial)] Future Scheduled 2022-02-27 COVID-19 Vaccine (4 [employer] Test 09:12:20 - Booster for Pfizer of Medi cine series) [code = COVID-19 Vaccine (4 - Booster for Pfizer series)] Future Scheduled 2022-02-27 FALL SCREEN [code = [employer] Test 09:12:20 FALL SCREEN] of Medicine Future Scheduled 2022-02-[address] [facility] Test 00:00:00 (#1) [code = Medical Center INFLUENZA VACCINE (#1)] Future Scheduled 2021-01-[address] [facility] Test 00:00:00 Counseling and Medical Cente r Screening (12+) [code = Tobacco Cessation Counseling and Screening (12+)] Future Scheduled 2019-06-[address] [facility] Test 00:00:00 WELLNESS (YEAR 2 or Medical Center FIRST YEAR if no IPPE) [code = MEDICARE ANNUAL WELLNESS (YEAR 2 or FIRST YEAR if no IPPE)] Future Scheduled 2004-08-29 PNEUMOCOCCAL 65+ YRS [facility] Test 00:00:00 (1 - PCV) [code = Medical Ce nter PNEUMOCOCCAL 65+ YRS (1 - PCV)] Future Scheduled 1989-08-29 SHINGLES VACCINES ([address] [facility] Test 00:00:00 of 2) [code = Medical Center SHINGLES VACCINES (1 of 2)] Future Scheduled 1958-08-29 DTAP/TDAP/TD [facility] Test 00:[facility] VACCINES (1 - Tdap) Medical Center [code = DTAP/TDAP/TD VACCINES (1 - Tdap)] Future Scheduled 1940-03-01 COVID-[address] [facility] Test 00:00:00 (#1) [code = Medical Center COVID-19 VACCINE (#1)] Future Scheduled 1939 DXA SCAN [code = DXA [facility] Test 00:00:00 SCAN] Medical Center Future Scheduled ORT - XR KNEE RIGHT Ordered: [employer] Test 4V (CHARGE ONLY) 04/26/2020 of Medicine [code = 97936] Future Scheduled TETANUS SHOT (ADULT) [facility] [employer] [employer] Test [code = TETANUS SHOT of Medi cine (ADULT)] Future Scheduled BMI FOLLOW UP PLAN [employer] Test [code = BMI FOLLOW of Medici ne UP PLAN] Future Scheduled ZOSTER VACCINE (1 of [employer] Test 2) [code = ZOSTER of Medicin e VACCINE (1 of 2)] Future Scheduled OSTEOPOROSIS [facility] [employer] Test SCREENING [code = of Medicin e OSTEOPOROSIS SCREENING] Future Scheduled PNEUMOVAX >=65 [facility] [employer] Test (PPSV23) [code = of Medicine PNEUMOVAX >=65 (PPSV23)] Future Scheduled MEDICARE AWV [facility] [employer] Test (Initial) [code = of Medicin e MEDICARE AWV (Initial)] Future Scheduled FALL SCREEN [code = [employer] [facility] FALL SCREEN] of Medicine Future Scheduled ORT - XR KNEE RIGHT Ordered: [employer] Test 4V (CHARGE ONLY) 12/29/2019 of Medicine [code = 40601] Future Scheduled C-REACTIVE PROTEIN Ordered: [employer] Test [code = 1988-5] 12/29/2019 of Medicine Future Scheduled SEDIMENTATION RATE Ordered: [employer] Test MODIFIED WESTERGREN 12/29/2019 of Medic ine [code = 4537-7] Future Scheduled TETANUS SHOT (ADULT) [employer] Test [code = TETANUS SHOT of Medi cine (ADULT)] Future Scheduled BMI FOLLOW UP PLAN [employer] Test [code = BMI FOLLOW of Medici ne UP PLAN] Future Scheduled OSTEOPOROSIS [facility] [employer] Test SCREENING [code = of Medicin e OSTEOPOROSIS SCREENING] Future Scheduled PNEUMOVAX >=65 [facility] Test (PPSV23) [code = of Medicine PNEUMOVAX >=65 (PPSV23)] Future Scheduled MEDICARE AWV [facility] [employer] Test (Initial) [code = of Medicin e MEDICARE AWV (Initial)] Future Scheduled FLU VACCINE > 6 [facility] C ollege Test MONTHS [code = FLU of Medici ne VACCINE > 6 MONTHS] Future Scheduled FALL SCREEN [code = [employer] [facility] FALL SCREEN] of Medicine Future Scheduled TETANUS SHOT (ADULT) [employer] Test [code = TETANUS SHOT of Medi cine (ADULT)] Future Scheduled BMI FOLLOW UP PLAN [employer] Test [code = BMI FOLLOW of Medici ne UP PLAN] Future Scheduled ZOSTER VACCINE (1 of [employer] Test 2) [code = ZOSTER of Medicin e VACCINE (1 of 2)] Future Scheduled OSTEOPOROSIS [facility] [employer] Test SCREENING [code = of Medicin e OSTEOPOROSIS SCREENING] Future Scheduled PNEUMOVAX >=65 [facility] Test (PPSV23) [code = of Medicine PNEUMOVAX >=65 (PPSV23)] Future Scheduled MEDICARE AWV [facility] [employer] Test (Initial) [code = of Medicin e MEDICARE AWV (Initial)] Future Scheduled FLU VACCINE > 6 [facility]lege Test MONTHS [code = FLU of Medici ne VACCINE > 6 MONTHS] Future Scheduled FALL SCREEN [code = [employer] [facility] FALL SCREEN] of Medicine Future Scheduled ORT - XR KNEE RIGHT Ordered: [employer] Test 4V (CHARGE ONLY) 02/26/2020 of Medicine [code = 39637] Future Scheduled XR KNEE RIGHT AP, [facility] College Test LAT, BOTH OBLIQUES of Medici ne [code = 10164-6] Future Scheduled TETANUS SHOT (ADULT) [employer] Test [code = TETANUS SHOT of Medi cine (ADULT)] Future Scheduled BMI FOLLOW UP PLAN [employer] Test [code = BMI FOLLOW of Medici ne UP PLAN] Future Scheduled ZOSTER VACCINE (1 of [employer] Test 2) [code = ZOSTER of Medicin e VACCINE (1 of 2)] Future Scheduled OSTEOPOROSIS [facility] [employer] Test SCREENING [code = of Medicin e OSTEOPOROSIS SCREENING] Future Scheduled PNEUMOVAX >=65 [facility] Test (PPSV23) [code = of Medicine PNEUMOVAX >=65 (PPSV23)] Future Scheduled MEDICARE AWV [facility] [employer] Test (Initial) [code = of Medicin e MEDICARE AWV (Initial)] Future Scheduled FLU VACCINE > 6 [facility] C [facility]lege Test MONTHS [code = FLU of Medici ne VACCINE > 6 MONTHS] Future Scheduled FALL SCREEN [code = [employer] [facility] FALL SCREEN] of Medicine Future Scheduled XR KNEE RIGHT AP, 1 Occurrences [employer] Test LAT, BOTH OBLIQUES starting of Medici ne [code = 15515-5] 02/26/2020 until 09/25/2020 Encounters Start End Encounter Admission Attending Care Care Encounter Source Date/Time Date/Time Type Type Clinicians Facility Department ID 2021-03-16 Inpatient LUIS ANTONIO VICK Surgery [id number] [facility] 00:27:59 DARRICK 2022-02-27 2022-02-27 Office GABO VICK 1.2.840.114 [id number] [facility] 08:52:19 10:45:14 Visit DARRICK AMBULATOR 350.1.13.21 College Y 0.2.7.2.686 of [id number] Medi josué 600 e 2022-02-27 2022-02-[address] [facility] [id number] [facility] 09:05:20 09:05:20 Colleg e of Medicin e 2021-11-05 2021-11-05 Telephone Nurse, Reid [facility] 1.2.840.114 [id number] Univers 00:00:00 00:00:00 Db Urgent HEALTH 350.1.13.10 ity of Care [place] 4.2.7.2.686 Lanre as BILL?BLEA [phone] [address] MEDICAL OFFICE [facility] 2021-11-04 2021-11-04 Laboratory Only, Reid Db Test [facility] 1.2.8 40.114 [id number] Univers 11:30:00 11:45:00 Only Bel Ramos 350.1.13.10 ity of [place] 4.2.7.2.686 Lanre as BILL?BLEA [phone] [address] MEDICAL OFFICE [facility] 2021-11-04 2021-11-04 Outpatient Josh RAMOS [facility] [id number] Univers 11:30:00 11:30:00 BEL cintron [facility] 2021-03-29 2021-03-29 Outpatient Josh ZHU [facility] [id number] Univers 15:30:00 15:30:00 ALEK cintron [facility] 2021-03-29 2021-03-29 Imm/Inj Nurse, Guy Pob Immunization [facility] 1.2.840.114 [id number] Univers 15:09:08 15:09:19 Visit Alek Zhu 350.1.13 .10 it[place] [phone] Wi dical [facility] 421 [facility] 2021-01-28 2021-01-28 Letter DMITRY Arrieta 1.2.840.114 [id number] Univers 00:00:00 00:00:00 (Out) Chantale Ackerman NOAH 350.1.13.10 it y of HOSPITAL 4.2.7.2.686 Lanre as [phone] [facility] [address] [place] 2021-01-27 2021-01-27 Outpatient R MARY, [facility] [id number] [facility] 13:35:00 13:35:00 MARIAMIA ity of [place] [facility] 2021-01-27 2021-01-27 Letter Doctor ANDRES 1.2.840.114 [id number] Univers 00:00:00 00:00:00 (Out) Unassigned, NOAH 350.1.13.10 [facility]y of [place] [facility] 4.2.7.2.686 Lanre as [phone] [address] 2021-01-27 2021-01-27 Letter Doctor ANDRES 1.2.840.114 [id number] Univers 00:00:00 00:00:00 (Out) Unassigned, NOAH 350.1.13.10 ity of [place] [facility] 4.2.7.2.686 Lanre as [phone] [facility] [address] [place] 2020-04-26 2020-04-26 Office GABO Vick 1.2.840.114 [id number] 09:12:31 09:56:39 Visit Darrick AMBULATOR 350.1.13.21 Y 0.2.7.2.686 [id number] 600 2020-04-26 2020-04-26 Office GABO Vick 1.2.840.114 [id number] [facility] 09:12:31 09:56:39 Visit Darrick AMBULATOR 350.1.13.21 College Y 0.2.7.2.686 of [id number] [facility] 600 e 2020-02-26 2020-02-26 Office GABO Vick 1.2.840.114 [id number] 10:05:08 10:15:08 Visit Darrick AMBULATOR 350.1.13.21 Y 0.2.7.2.686 [id number] 600 2020-02-26 2020-02-26 Office GABO Vick 1.2.840.114 [id number] [facility] 10:05:08 10:15:08 Visit Darrick AMBULATOR 350.1.13.21 College Y 0.2.7.2.686 of [id number] Medi josué 600 e 2020-01-29 2020-01-29 Office GABO Vick 1.2.840.114 [id number] 10:08:48 11:01:35 Visit Darrick AMBULATOR 350.1.13.21 Y 0.2.7.2.686 [id number] 600 2020-01-29 2020-01-29 Office FRANKLIN Vick 1.2.840.114 [id number] [facility] 10:08:48 11:01:35 Visit Darrick AMBULATOR 350.1.13.21 College Y 0.2.7.2.686 of [id number] Medi josué 600 e 2020-01-07 2020-01-07 Outpatient [facility] [id number] [facility] 00:00:00 00:00:00 2019-12-29 2019-12-29 Office Moreno [facility] 1.2.840.114 [id number] 09:15:39 10:16:40 Visit Darrick AMBULATOR 350.1.13.21 Y 0.2.7.2.686 [id number] 600 2019-12-29 2019-12-29 Office Moreno [facility] 1.2.840.114 [id number] [facility] 09:15:39 10:16:40 Visit Darrick AMBULATOR 350.1.13.21 College Y 0.2.7.2.686 of [id number] Medi josué 600 e 2019-11-25 2019-11-25 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 [facility] Family 4 [id number] Memoria 14:15:00 14:15:00 Pre-Reg r Medicine 90 l [place] Dariel 2019-11-25 2019-11-25 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 [facility] Family 4 [id number] Memoria 14:15:00 14:15:00 Pre-Reg r Medicine 90 gladys Vieira 2019-11-25 2019-11-25 Outpatient MHIE MHIE [id number] Memoria 09:15:00 09:15:00 90 gladys [place] 2019-11-25 2019-11-25 Outpatient Beth, MHMG MG [id number] 09:15:00 09:15:00 Mar Haider 2019-11-18 2019-11-18 Outpatient MHIE MHIE [id number] Memoria 08:15:00 08:15:00 91 gladys Dariel 2019-11-18 2019-11-18 Outpatient MHIE MHIE [id number] Memoria 08:15:00 08:15:00 91 gladys [place] 2019-10-01 2019-10-02 [place] [id number] Memoria 14:45:00 04:59:59 r Cardiology 83 gladys Pineda [place] 2019-10-01 2019-10-02 [place] [id number] [facility] 14:45:00 04:59:59 r Cardiology 83 gladys Pineda [place] 2019-10-01 2019-10-01 Outpatient Trent L MG MG [id number] 09:45:00 23:59:59 Chrissy 83 2019-10-01 2019-10-01 Outpatient MHIE MHIE [id number] Memoria 09:45:00 09:45:00 82 gladys [place] 2019-09-29 2019-10-01 Phone nullFlavo MG [id number] Memoria 16:13:37 04:59:59 Message r Cardiology 15 gladys Pineda [place] 2019-09-29 2019-10-01 Phone nullFlavo MG [id number] Memoria 16:13:37 04:59:59 Message r Cardiology 15 gladys Pineda [place] 2019-09-29 2019-09-30 Outpatient MHMG MHMG [id number] 11:13:37 23:59:59 15 2019-08-20 2019-08-22 Phone nullFlavo [facility] Family [id number] Memoria 21:25:11 04:59:59 Message r Medicine 14 gladys Vieira 2019-08-20 2019-08-22 Phone nullFlavo MG Family [id number] Memoria 21:25:11 04:59:59 Message r Medicine 14 gladys Vieira 2019-08-20 2019-08-21 Outpatient MHMG MHMG [id number] 16:25:11 23:59:59 14 2019-08-14 2019-08-15 Outpatient nullFlavo MG Family 4 [id number] Memoria 15:15:00 05:59:59 r Medicine 85 gladys Vieira 2019-08-14 2019-08-15 Outpatient nullFlavo MG Family 4 [id number] Memoria 15:15:00 05:59:59 r Medicine 85 gladys Vieira 2019-08-14 2019-08-14 Outpatient Beth, MHMG MG [id number] 09:15:00 23:59:59 Mar 85 [facility] 2019-08-14 2019-08-14 Outpatient MHIE MHIE [id number] Memoria 09:15:00 09:15:00 84 gladys [place] 2019-08-05 2019-08-05 Outpatient MHIE MHIE [id number] Memoria 07:45:00 07:45:00 85 gladys Dariel 2019-08-05 2019-08-05 Outpatient MHIE MHIE [id number] Memoria 07:45:00 07:45:00 85 gladys Dariel 2019-07-22 2019-07-23 Outpatient nullFlavo MG Family 4 [id number] Memoria 22:15:00 05:59:59 r Medicine 89 gladys Vieira 2019-07-22 2019-07-23 Outpatient nullFlavo MG Family 4 [id number] Memoria 22:15:00 05:59:59 r Medicine 89 gladys Vieira 2019-07-22 2019-07-22 Outpatient Beth, MHMG MG [id number] 16:15:00 23:59:59 Mar 89 [facility] 2019-07-22 2019-07-22 Outpatient MHIE MHIE [id number] Memoria 16:15:00 16:15:00 88 gladys [place] 2019-07-10 2019-07-10 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 4 [id number] Memoria 16:00:00 16:00:00 Pre-Reg r [place] 64 l 2019-07-10 2019-07-10 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 [id number] Memoria 16:00:00 16:00:00 Pre-Reg r [place] 64 gladys Vieira 2019-07-10 2019-07-10 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 [facility] [id number] Memoria 15:30:00 15:30:00 Pre-Reg r Radiology 63 l Edwin [place] 2019-07-10 2019-07-10 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 [id number] Memoria 15:30:00 15:30:00 Pre-Reg r Radiology 63 l Edwin Dariel 2019-07-10 2019-07-10 Outpatient MHIE MHIE [id number] Memoria 10:00:00 10:00:00 63 l [place] 2019-07-10 2019-07-10 [place] [id number] 10:00:00 10:00:00 Brendon Mckeon 64 2019-07-10 2019-07-10 Outpatient VISIT, MG MG [id number] 09:30:00 09:30:00 NURSE [facility] 63 MAMMO 2019-06-17 2019-06-18 Outpatient nullFlavo [facility] [id number] Memoria 20:45:00 05:59:59 r Radiology 88 l Edwin Vieira 2019-06-17 2019-06-18 [place] [id number] Memoria 20:45:00 05:59:59 r Radiology 88 l Edwin Vieira 2019-06-17 2019-06-18 Outpatient nullFlavo MG Family 4 [id number] Memoria 19:45:00 05:59:59 r Medicine 87 gladys Vieira 2019-06-17 2019-06-18 Outpatient nullFlavo MG Family 4 [id number] Memoria 19:45:00 05:59:59 r Medicine 87 l Edwin Vieira 2019-06-17 2019-06-17 Outpatient VISIT, MG [facility] [id number] 14:45:00 23:59:[address] 88 XRAY 2019-06-17 2019-06-17 Outpatient Nwani, MHMG MH[facility] [id number] 13:45:00 23:59:59 José Miguel 87 Darci 2019-06-17 2019-06-17 Outpatient MHIE MHIE [id number] Memoria 14:45:00 14:45:00 87 gladys Vieira 2019-06-17 2019-06-17 Outpatient MHIE MHIE [id number] Memoria 13:45:00 13:45:00 86 gladys Vieira 2019-05-16 2019-05-17 Outpatient nullFlavo [facility] Family 4 [id number] Memoria 16:00:00 05:59:59 r Medicine 84 gladys Vieira 2019-05-16 2019-05-17 Outpatient nullFlavo [facility] Family 4 [id number] Memoria 16:00:00 05:59:59 r Medicine 84 gladys Vieira 2019-05-16 2019-05-16 Outpatient Beth, MHMG MH[facility] [id number] 10:00:00 23:59:59 Mar Tim Meliza 2019-05-16 2019-05-16 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 [facility] Family 4 [id number] Memoria 16:00:00 16:00:00 Pre-Reg r Medicine 75 gladys Vieira 2019-05-16 2019-05-16 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 [facility] Family 4 [id number] Memoria 16:00:00 16:00:00 Pre-Reg r Medicine 75 gladys Vieira 2019-05-16 2019-05-16 Outpatient MHIE MHIE [id number] Memoria 10:00:00 10:00:00 83 gladys Vieira 2019-05-16 2019-05-16 Outpatient MHIE MHIE [id number] Memoria 10:00:00 10:00:00 74 gladys Vieira 2019-05-16 2019-05-16 Outpatient Beth, MHMG MHMG [id number] 10:00:00 10:00:00 Mar Haider 2019-05-09 2019-05-09 Outpatient MHIE MHIE [id number] Memoria 07:10:00 07:10:00 75 gladys Dariel 2019-05-09 2019-05-09 Outpatient MHIE MHIE [id number] Memoria 07:10:00 07:10:00 75 gladys Dariel 2019-04-09 2019-04-11 Phone nullFlavo [facility] Family [id number] Memoria 14:52:12 04:59:59 Message r Medicine 13 gladys Santnaaann 2019-04-09 2019-04-11 Phone nullFlavo [facility] Family [id number] Memoria 14:52:12 04:59:59 Message r Medicine 13 gladys Vieira 2019-04-09 2019-04-10 Outpatient MH[facility] MG [id number] 09:52:12 23:59:59 13 2019-04-02 2019-04-03 Outpatient nullFlavo [facility] [id number] Memoria 14:15:00 04:59:59 r Cardiology 81 gladys Vieira 2019-04-02 2019-04-03 Outpatient nullFlavo [facility] [id number] Memoria 14:15:00 04:59:59 r Cardiology 81 gladys Vieira 2019-04-02 2019-04-02 Outpatient Gladys Newman [facility] MG [id number] 09:15:00 23:59:59 Chrissy 81 2019-04-02 2019-04-02 Outpatient MHIE MHIE [id number] Memoria 09:15:00 09:15:00 80 gladys Vieira 2019-03-28 2019-03-28 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 [id number] Memoria 15:15:00 15:15:00 Pre-Reg r Cardiology 80 gladys Vieira 2019-03-28 2019-03-28 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 [id number] Memoria 15:15:00 15:15:00 Pre-Reg r Cardiology 80 gladys Vieira 2019-03-28 2019-03-28 Outpatient MHIE MHIE [id number] Memoria 10:15:00 10:15:00 80 gladys Vieira 2019-03-28 2019-03-28 Outpatient Gladys Newman MG MG [id number] 10:15:00 10:15:00 Chrissy 80 2019-03-27 2019-03-28 Outpatient nullFlavo [facility] Family 4 [id number] Memoria 18:00:00 04:59:59 r Medicine 82 gladys Vieira 2019-03-27 2019-03-28 Outpatient nullFlavo [facility] Family 4 [id number] Memoria 18:00:00 04:59:59 r Medicine 81 gladys Vieira 2019-03-27 2019-03-27 Outpatient Marisaani, MG MG [id number] 13:00:00 23:59:59 José Miguel 81 Darci 2019-03-27 2019-03-27 Outpatient [facility] [id number] Memoria 13:00:00 13:00:00 81 gladys Vieira 2019-03-24 2019-03-24 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 [facility] [id number] Memoria 13:45:00 13:45:00 Pre-Reg r Cardiology 73 gladys Vieira 2019-03-24 2019-03-24 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 [facility] [id number] Memoria 13:45:00 13:45:00 Pre-Reg r Cardiology 73 gladys Vieira 2019-03-24 2019-03-24 Outpatient [facility] [id number] Memoria 08:45:00 08:45:00 73 gladys Vieira 2019-03-24 2019-03-24 Outpatient Gladys Newman [facility] [id number] 08:45:00 08:45:00 Chrissy Fong 2019-03-17 2019-03-17 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 [facility] Family 4 [id number] Memoria 19:45:00 19:45:00 Pre-Reg r Medicine 78 gladys [place] 2019-03-17 2019-03-17 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 [facility] 4 [id number] Memoria 19:45:00 19:45:00 Pre-Reg r Medicine 78 gladys [place] 2019-03-17 2019-03-17 Outpatient Doran, MG [facility] [id number] 14:45:00 14:45:00 Luca 78 2019-03-17 2019-03-17 Outpatient MHIE MHIE [id number] Memoria 13:30:00 13:30:00 78 gladys [place] 2019-02-27 2019-02-28 Outpatient nullFlavo [facility] 4 [id number] Memoria 15:15:00 04:59:59 r Medicine 77 gladys [place] 2019-02-27 2019-02-28 Outpatient nullFlavo [facility] 4 [id number] Memoria 15:15:00 04:59:59 r Medicine 77 gladys [place] 2019-02-27 2019-02-27 Outpatient Beth, MG [facility] [id number] 10:15:00 23:59:59 Mar Haider 2019-02-27 2019-02-27 Outpatient MHIE MHIE [id number] Memoria 10:15:00 10:15:00 77 gladys [place] 2019-01-01 2019-01-02 Outpatient nullFlavo [facility] 4 [id number] Memoria 13:30:00 04:59:59 r Medicine 76 gladys [place] 2019-01-01 2019-01-02 Outpatient nullFlavo [facility] 4 [id number] Memoria 13:30:00 04:59:59 r Medicine 76 gladys [place] 2019-01-01 2019-01-01 Outpatient MHMG [facility]MG [id number] 08:30:00 23:59:59 76 2019-01-01 2019-01-01 Outpatient MHIE MHIE [id number] Memoria 08:30:00 08:30:00 76 gladys [place] 2018-11-15 2018-11-16 Outpatient nullFlavo [facility] 4 [id number] Memoria 14:00:00 04:59:59 r Medicine 72 gladys [place] 2018-11-15 2018-11-16 Outpatient nullFlavo [facility] 4 [id number] Memoria 14:00:00 04:59:59 r Medicine 72 gladys [place] 2018-11-15 2018-11-15 Outpatient NICOLE Rosario [facility] [id number] 09:00:00 23:59:59 Onofre Nieto 2018-11-15 2018-11-15 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 [facility] 4 [id number] Memoria 14:00:00 14:00:00 Pre-Reg r Medicine 60 gladys [place] 2018-11-15 2018-11-15 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 [facility] 4 [id number] Memoria 14:00:00 14:00:00 Pre-Reg r Medicine 60 gladys [place] 2018-11-15 2018-11-15 Outpatient MHIE MHIE [id number] Memoria 09:00:00 09:00:00 72 gladys [place] 2018-11-15 2018-11-15 Outpatient MHIE MHIE [id number] Memoria 09:00:00 09:00:00 60 gladys [place] 2018-11-15 2018-11-15 Outpatient Abraham [facility] [id number] 09:00:00 09:00:00 Onofre Garcia 2018-11-08 2018-11-08 Outpatient MHIE MHIE [id number] Memoria 07:00:00 07:00:00 61 gladys [place] 2018-11-08 2018-11-08 Outpatient MHIE MHIE [id number] Memoria 07:00:00 07:00:00 61 gladys [place] 2018-09-23 2018-09-24 [place] [id number] Memoria 15:15:00 04:59:59 r Cardiology 57 gladys [place] 2018-09-23 2018-09-24 [place] [id number] Memoria 15:15:00 04:59:59 r Cardiology 57 gladys [place] 2018-09-23 2018-09-23 [facility] [id number] 10:15:00 23:59:59 Chrissy 57 2018-09-23 2018-09-23 Outpatient MHIE IE [id number] Memoria 10:15:00 10:15:00 57 gladys [place] 2018-09-10 2018-09-11 [place] [id number] Memoria 21:00:00 04:59:59 r Pulmonology 50 gladys [place] 2018-09-10 2018-09-11 [place] [id number] Memoria 21:00:00 04:59:59 r Pulmonology 50 gladys [place] 2018-09-10 2018-09-10 [facility]her[facility] [id number] 16:00:00 23:59:59 Alan 50 [place] 2018-09-10 2018-09-10 Outpatient IE IE [id number] Memoria 16:00:00 16:00:00 50 gladys [place] 2018-08-01 2018-08-02 Outpatient nullFlavo MG Family 4 [id number] Memoria 14:30:00 05:59:59 r Medicine 71 gladys [place] 2018-08-01 2018-08-02 Outpatient nullFlavo MG Family 4 [id number] Memoria 14:30:00 05:59:59 r Medicine 71 gladys [place] 2018-08-01 2018-08-01 Outpatient [place], [facility] [id number] 08:30:00 23:59:59 [place] 71 me [place] 2018-08-01 2018-08-01 Outpatient MHIE MHIE [id number] Memoria 08:30:00 08:30:00 71 gladys [place] 2018-07-11 2018-07-12 Outpt Diag nullFlavo [facility] [id number] Memoria 14:27:00 05:59:00 Services r Outpatient 02 l Imaging Dariel [place] 2018-07-11 2018-07-12 Outpt Diag nullFlavo [facility] [id number] Memoria 14:27:00 05:59:00 Services r Outpatient 02 l Imaging Dariel [place] 2018-07-11 2018-07-11 Outpatient Sangalli, MH29 MH29 [id number] 08:27:00 23:59:00 Brendon Mckeon 2018-07-11 2018-07-11 Outpatient Sangalli, MH29 MH29 [id number] 08:27:00 23:59:00 Brendon Mike 2018-07-09 2018-07-10 Outpatient nullFlavo [facility] 4 [id number] Memoria 15:30:00 05:59:59 r Medicine 70 gladys Pineda [place] 2018-07-09 2018-07-10 Outpatient nullFlavo [facility] 4 [id number] Memoria 15:30:00 05:59:59 r Medicine 70 gladys Stutsman [place] 2018-07-09 2018-07-10 Outpatient nullFlavo [facility] 4 [id number] Memoria 14:00:00 05:59:59 r Medicine 66 gladys Stutsman [place] 2018-07-09 2018-07-10 Outpatient nullFlavo [facility] 4 [id number] Memoria 14:00:00 05:59:59 r Medicine 66 gladys Stutsman [place] 2018-07-09 2018-07-09 Outpatient VISIT, MHMG MHMG [id number] 09:30:00 23:59:59 NURSE STWH 70 MAGGIA 2018-07-09 2018-07-09 Outpatient VISIT, MHMG MHMG [id number] 09:30:00 23:59:59 NURSE STWH 71 DEXA 2018-07-09 2018-07-09 Outpatient MHMG MHMG [id number] 08:00:00 23:59:59 66 2018-07-09 2018-07-09 Outpatient MHMG MHMG [id number] 08:00:00 23:59:59 67 2018-07-09 2018-07-09 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 [facility] [id number] Memoria 15:30:00 15:30:00 Pre-Reg r Radiology 69 gladys [place] 2018-07-09 2018-07-09 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 [facility] [id number] Memoria 15:30:00 15:30:00 Pre-Reg r Radiology 68 gladys [place] 2018-07-09 2018-07-09 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 [facility] [id number] Memoria 15:30:00 15:30:00 Pre-Reg r Radiology 67 gladys [place] 2018-07-09 2018-07-09 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 [facility] [id number] Memoria 15:30:00 15:30:00 Pre-Reg r Radiology 65 gladys [place] 2018-07-09 2018-07-09 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 MHMG [id number] Memoria 15:30:00 15:30:00 Pre-Reg r Radiology 69 gladys [place] 2018-07-09 2018-07-09 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 [facility]MG [id number] Memoria 15:30:00 15:30:00 Pre-Reg r Radiology 70 gladys [place] 2018-07-09 2018-07-09 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 [facility] [id number] Memoria 15:30:00 15:30:00 Pre-Reg r Radiology 67 gladys [place] 2018-07-09 2018-07-09 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 [facility] [id number] Memoria 15:30:00 15:30:00 Pre-Reg r Radiology 65 gladys [place] 2018-07-09 2018-07-09 Outpatient MHIE MHIE [id number] Memoria 09:30:00 09:30:00 65 gladys [place] 2018-07-09 2018-07-09 Outpatient MHIE MHIE [id number] Memoria 09:30:00 09:30:00 68 gladys [place] 2018-07-09 2018-07-09 Outpatient MHIE MHIE [id number] Memoria 09:30:00 09:30:00 70 gladys [place] 2018-07-09 2018-07-09 Outpatient MHIE MHIE [id number] Memoria 09:30:00 09:30:00 67 gladys [place] 2018-07-09 2018-07-09 Outpatient MHIE MHIE [id number] Memoria 09:30:00 09:30:00 69 gladys Dariel 2018-07-09 2018-07-09 Outpatient VISIT, MHMG MHMG [id number] 09:30:00 09:30:00 NURSE STWH 68 DEXA 2018-07-09 2018-07-09 Outpatient VISIT, MHMG MHMG [id number] 09:30:00 09:30:00 NURSE STWH 66 DEXA 2018-07-09 2018-07-09 Outpatient VISIT, MHMG MHMG [id number] 09:30:00 09:30:00 NURSE STWH 69 DEXA 2018-07-09 2018-07-09 Outpatient VISIT, MHMG MHMG [id number] 09:30:00 09:30:00 NURSE STWH 70 DEXA 2018-07-09 2018-07-09 Outpatient VISIT, MHMG MHMG [id number] 09:30:00 09:30:00 NURSE STWH 66 DEXA 2018-07-09 2018-07-09 Outpatient VISIT, MHMG MHMG [id number] 09:30:00 09:30:00 NURSE STWH 68 DEXA 2018-07-09 2018-07-09 Outpatient VISIT, MHMG MHMG [id number] 09:30:00 09:30:00 NURSE STWH 69 DEXA 2018-07-09 2018-07-09 Outpatient VISIT, MHMG MHMG [id number] 09:30:00 09:30:00 NURSE STWH 70 DEXA 2018-07-09 2018-07-09 Outpatient MHIE MHIE [id number] Memoria 08:00:00 08:00:00 66 gladys Dariel 2018-07-08 2018-07-09 Outpatient nullFlavo [facility] RN CVOR 4 [id number] Memoria 16:00:00 05:59:59 r Edwin 43 gladys [place] 2018-07-08 2018-07-09 Outpatient nullFlavo [facility] RN CVOR 4 [id number] Memoria 16:00:00 05:59:59 r Edwin 43 gladys [place] 2018-07-08 2018-07-09 Outpatient nullFlavo [facility] Family 4 [id number] Memoria 15:30:00 05:59:59 r Medicine 62 gladys [place] 2018-07-08 2018-07-09 Outpatient nullFlavo [facility] Family 4 [id number] Memoria 15:30:00 05:59:59 r Medicine 63 gladys [place] 2018-07-08 2018-07-08 Outpatient Sangalli, MHMG MHMG [id number] 10:00:00 23:59:59 Brendon Mckeon 44 2018-07-08 2018-07-08 Outpatient Sangalli, MHMG MHMG [id number] 10:00:00 23:59:59 Brendon Mckeon 43 2018-07-08 2018-07-08 Outpatient VISIT, MHMG MHMG [id number] 09:30:00 23:59:[address] 63 DEXA 2018-07-08 2018-07-08 Outpatient VISIT, MHMG MHMG [id number] 09:30:00 23:59:[address] 62 DEXA 2018-07-08 2018-07-08 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 MHMG [id number] Memoria 15:30:00 15:30:00 Pre-Reg r Radiology 42 gladys Pineda Dariel 2018-07-08 2018-07-08 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 [facility] [id number] Memoria 15:30:00 15:30:00 Pre-Reg r Radiology 42 gladys [place] 2018-07-08 2018-07-08 Outpatient MHIE MHIE [id number] Memoria 10:00:00 10:00:00 43 gladys [place] 2018-07-08 2018-07-08 Outpatient MHIE MHIE [id number] Memoria 09:30:00 09:30:00 42 gladys [place] 2018-07-08 2018-07-08 Outpatient MHIE MHIE [id number] Memoria 09:30:00 09:30:00 62 gladys Dariel 2018-07-08 2018-07-08 Outpatient VISIT, MHMG MHMG [id number] 09:30:00 09:30:00 [facility] [address] 2018-07-08 2018-07-08 Outpatient VISIT, MHMG MHMG [id number] 09:30:00 09:30:00 NURSE STWC 43 MAMMO 2018-05-16 2018-05-17 Outpatient nullFlavo [facility] Family 4 [id number] Memoria 15:45:00 05:59:59 r Medicine 59 gladys [place] 2018-05-16 2018-05-17 Outpatient nullFlavo MG Family 4 [id number] Memoria 15:45:00 05:59:59 r Medicine 59 gladys [place] 2018-05-16 2018-05-16 [facility] [id number] 09:45:00 23:59:59 Onofre P 59 2018-05-16 2018-05-16 Outpatient NICOLEIE NICOLEIE [id number] Memoria 09:45:00 09:45:00 59 gladys [place] 2018-05-09 2018-05-09 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 MG Family 4 [id number] Memoria 14:30:00 14:30:00 Pre-Reg r Medicine 40 gladys [place] 2018-05-09 2018-05-09 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 MG Family 4 [id number] Memoria 14:30:00 14:30:00 Pre-Reg r Medicine 41 gladys [place] 2018-05-09 2018-05-09 Outpatient NICOLEIE NICOLEIE [id number] Memoria 08:30:00 08:30:00 40 gladys [place] 2018-05-09 2018-05-09 [facility] [id number] 08:30:00 08:30:00 Onofre P 40 2018-03-28 2018-03-29 Outpatient nullFlavo MG Family 4 [id number] Memoria 18:15:00 04:59:59 r Medicine 58 gladys [place] 2018-03-28 2018-03-29 Outpatient nullFlavo MG Family 4 [id number] Memoria 18:15:00 04:59:59 r Medicine 58 gladys [place] 2018-03-28 2018-03-28 [facility] [id number] 13:15:00 23:59:59 Mar 58 [place] 2018-03-28 2018-03-28 Outpatient MHIE MHIE [id number] Memoria 13:15:00 13:15:00 58 gladys [place] 2018-03-25 2018-03-26 [place] [id number] Memoria 14:45:00 04:59:59 r Cardiology 56 gladys [place] 2018-03-25 2018-03-26 Outpatient nullFlavo [facility] [id number] Memoria 14:45:00 04:59:59 r Cardiology 56 gladys [place] 2018-03-25 2018-03-25 Outpatient [facility] [id number] 09:45:00 23:59:59 Chrissy 56 2018-03-25 2018-03-25 Outpatient MHIE IE [id number] Memoria 09:45:00 09:45:00 56 gladys [place] 2018-03-21 2018-03-21 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 [id number] Memoria 14:30:00 14:30:00 Pre-Reg r Cardiology 51 gladys [place] 2018-03-21 2018-03-21 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 [id number] Memoria 14:30:00 14:30:00 Pre-Reg r Cardiology 51 gladys [place] 2018-03-21 2018-03-21 Outpatient IE IE [id number] Memoria 09:30:00 09:30:00 51 gladys [place] 2018-03-21 2018-03-21 Outpatient [facility] [id number] 09:30:00 09:30:00 Chrissy 51 2018-03-08 2018-03-09 [place] [id number] Memoria 14:30:00 04:59:59 r Otolaryngol 55 gladys Santana [place] 2018-03-08 2018-03-09 [place] [id number] Memoria 14:30:00 04:59:59 r Otolaryngol 55 gladys Santana [place] 2018-03-08 2018-03-08 [place] [id number] 09:30:00 23:59:59 Sreekrishna 55 Mahesh 2018-03-08 2018-03-08 Outpatient MHIE IE [id number] Memoria 09:30:00 09:30:00 55 gladys [place] 2018-03-05 2018-03-06 Outpatient nullFlavo MG Family 4 [id number] Memoria 20:15:00 04:59:59 r Medicine 54 gladys Santanaann 2018-03-05 2018-03-06 Outpatient nullFlavo MG Family 4 [id number] Memoria 20:15:00 04:59:59 r Medicine 54 gladys [place] 2018-03-05 2018-03-05 Outpatient Abraham [facility] [id number] 15:15:00 23:59:59 Onofre P 54 2018-03-05 2018-03-05 Outpatient MHIE IE [id number] Memoria 15:15:00 15:15:00 54 gladys [place] 2018-02-13 2018-02-14 Outpatient nullFlavo [facility] Family 4 [id number] Memoria 18:45:00 04:59:59 r Medicine 53 gladys Santanaann 2018-02-13 2018-02-14 Outpatient nullFlavo [facility] Family 4 [id number] Memoria 18:45:00 04:59:59 r Medicine 53 gladys Santanaann 2018-02-13 2018-02-13 Outpatient Abraham [facility] [id number] 13:45:00 23:59:59 Onofre P 53 2018-02-13 2018-02-13 Outpatient MHIE IE [id number] Memoria 13:45:00 13:45:00 53 gladys SantanaDariel 2017-10-31 2017-11-01 Outpatient nullFlavo MNA [id number] Memoria 17:00:00 04:59:59 r Neuroscienc 53 l e [place] [facility] 2017-10-31 2017-11-01 Outpatient nullFlavo MNA [id number] Memoria 17:00:00 04:59:59 r Neuroscienc 53 l e [place] [facility] 2017-10-31 2017-10-31 Outpatient [place] [id number] 12:00:00 23:59:59 53 2017-10-31 2017-10-31 Outpatient IE IE [id number] Memoria 12:00:00 12:00:00 52 gladys SantanaDariel 2017-09-28 2017-09-30 Phone nullFlavo MNA [id number] Memoria 18:18:00 04:59:59 Message r Neuroscienc 12 l e [facility] 2017-09-28 2017-09-30 Phone nullFlavo MNA [id number] Memoria 18:18:00 04:59:59 Message r Neuroscienc 12 l e [facility] 2017-09-28 2017-09-29 Outpatient [facility] [id number] 13:18:00 23:59:59 12 2017-09-24 2017-09-26 Phone nullFlavo [facility] Family [id number] Memoria 13:37:00 04:59:59 Message r Medicine 11 gladys [place] 2017-09-24 2017-09-26 Phone nullFlavo [facility] Family [id number] Memoria 13:37:00 04:59:59 Message r Medicine 11 gladys [place] 2017-09-24 2017-09-25 Outpatient MHMG MHMG [id number] 08:37:00 23:59:59 11 2017-09-19 2017-09-20 Outpatient nullFlavo MHMG [id number] Memoria 14:15:00 04:59:59 r Cardiology 40 gladys [place] 2017-09-19 2017-09-20 Outpatient nullFlavo MHMG [id number] Memoria 14:15:00 04:59:59 r Cardiology 40 gladys [place] 2017-09-19 2017-09-19 Outpatient Mazel, L [facility] MHMG [id number] 09:15:00 23:59:59 Chrissy 40 2017-09-19 2017-09-19 Outpatient Mazel, L MH[facility] MHMG [id number] 09:15:00 23:59:59 Chrissy 40 2017-09-19 2017-09-19 Outpatient MHIE MHIE [id number] Memoria 09:15:00 09:15:00 39 gladys [place] 2017-08-28 2017-08-29 Outpatient nullFlavo [facility] Family 4 [id number] Memoria 20:30:00 04:59:59 r Medicine 50 gladys [place] 2017-08-28 2017-08-29 Outpatient nullFlavo [facility] Family 4 [id number] Memoria 20:30:00 04:59:59 r Medicine 50 gladys [place] 2017-08-28 2017-08-29 Outpatient nullFlavo MHMG [id number] Memoria 19:30:00 04:59:59 r Pulmonology 34 gladys [place] 2017-08-28 2017-08-29 Outpatient nullFlavo MHMG [id number] Memoria 19:30:00 04:59:59 r Pulmonology 35 gladys [place] 2017-08-28 2017-08-28 Outpatient Beth, NICOLEMG MG [id number] 15:30:00 23:59:59 Mar Haider 2017-08-28 2017-08-28 Outpatient Thrasher, MHMG MG [id number] 14:30:00 23:59:59 Alan Ruiz 2017-08-28 2017-08-28 Outpatient Thrasher, MHMG MG [id number] 14:30:00 23:59:59 Alan 34 Joseph 2017-08-28 2017-08-28 Outpatient MHIE MHIE [id number] Memoria 15:30:00 15:30:00 49 gladys [place] 2017-08-28 2017-08-28 Outpatient MHIE MHIE [id number] Memoria 14:30:00 14:30:00 34 gladys [place] 2017-08-03 2017-08-04 Outpatient nullFlavo MG Family 4 [id number] Memoria 20:00:00 05:59:59 r Medicine 49 gladys [place] 2017-08-03 2017-08-04 Outpatient nullFlavo MG Family 4 [id number] Memoria 20:00:00 05:59:59 r Medicine 49 gladys [place] 2017-08-03 2017-08-03 Outpatient Beth, MG MG [id number] 14:00:00 23:59:59 Mar Haider 2017-08-03 2017-08-03 Outpatient MHIE MHIE [id number] Memoria 14:00:00 14:00:00 49 gladys [place] 2017-08-01 2017-08-03 Outside nullFlavo MG [id number] Memoria 21:46:00 05:59:59 Medical r Cardiology 10 gladys [place] 2017-08-01 2017-08-03 Outside nullFlavo MG [id number] Memoria 21:46:00 05:59:59 Medical r Cardiology 10 gladys [place] 2017-08-01 2017-08-02 Outpatient MHMG MHMG [id number] 15:46:00 23:59:59 10 2017-07-25 2017-07-26 Outpatient nullFlavo MG Family 4 [id number] Memoria 20:15:00 05:59:59 r Medicine 48 gladys [place] 2017-07-25 2017-07-26 Outpatient nullFlavo MG Family 4 [id number] Memoria 20:15:00 05:59:59 r Medicine 48 gladys [place] 2017-07-25 2017-07-26 Outpatient nullFlavo [facility] Family 4 [id number] Memoria 19:15:00 05:59:59 r Medicine 46 gladys [place] 2017-07-25 2017-07-26 Outpatient nullFlavo MG Family 4 [id number] Memoria 19:15:00 05:59:59 r Medicine 46 gladys [place] 2017-07-25 2017-07-25 Outpatient VISIT, MHMG MHMG [id number] 14:15:00 23:59:59 NURSE STWH 48 XRAY 2017-07-25 2017-07-25 Outpatient Beth, MG MG [id number] 13:15:00 23:59:59 Mar 46 Mel[place] 2017-07-25 2017-07-25 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 [id number] Memoria 20:15:00 20:15:00 Pre-Reg r Radiology 46 gladys [place] 2017-07-25 2017-07-25 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 [id number] Memoria 20:15:00 20:15:00 Pre-Reg r Radiology 47 gladys [place] 2017-07-25 2017-07-25 Outpatient MHIE MHIE [id number] Memoria 14:15:00 14:15:00 46 gladys [place] 2017-07-25 2017-07-25 Outpatient MHIE MHIE [id number] Memoria 14:15:00 14:15:00 47 gladys [place] 2017-07-25 2017-07-25 Outpatient VISIT, MHMG MG [id number] 14:15:00 14:15:00 NURSE STWH 47 XRAY 2017-07-25 2017-07-25 Outpatient MHIE MHIE [id number] Memoria 13:15:00 13:15:00 45 gladys [place] 2017-06-28 2017-06-29 Outpatient nullFlavo MG Family 4 [id number] Memoria 16:00:00 05:59:59 r Medicine 45 gladys [place] 2017-06-28 2017-06-29 Outpatient nullFlavo [facility] Family 4 [id number] Memoria 16:00:00 05:59:59 r Medicine 45 gladys Pineda [place] 2017-06-28 2017-06-29 Outpatient nullFlavo MHMG RN CVOR 4 [id number] Memoria 15:00:00 05:59:59 r Edwin 21 gladys [place] 2017-06-28 2017-06-29 Outpatient nullFlavo MHMG RN CVOR 4 [id number] Memoria 15:00:00 05:59:59 r Edwin 21 gladys [place] 2017-06-28 2017-06-28 Outpatient VISIT, MHMG MHMG [id number] 10:00:00 23:59:59 N[facility]SE STW 45 [facility] 2017-06-28 2017-06-28 Outpatient Sangalli, MHMG MHMG [id number] 09:00:00 23:59:59 Brendon Mckeon 21 2017-06-28 2017-06-28 Outpatient Sangalli, MHMG MHMG [id number] 09:00:00 23:59:59 Brendon Mckeon 21 2017-06-28 2017-06-28 Outpatient Sangalli, MHMG MHMG [id number] 09:00:00 23:59:59 Brendon Mckeon 21 2017-06-28 2017-06-28 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 MHMG [id number] Memoria 16:00:00 16:00:00 Pre-Reg r Radiology 20 gladys Stutsman [place] 2017-06-28 2017-06-28 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 MHMG [id number] Memoria 16:00:00 16:00:00 Pre-Reg r Radiology 20 gladys Stutsman [place] 2017-06-28 2017-06-28 Outpatient MHIE MHIE [id number] Memoria 10:00:00 10:00:00 20 gladys [place] 2017-06-28 2017-06-28 Outpatient MHIE MHIE [id number] Memoria 10:00:00 10:00:00 44 gladys [place] 2017-06-28 2017-06-28 Outpatient VISIT, MHMG MHMG [id number] 10:00:00 10:00:00 NURSE STWC 20 [facility] 2017-06-28 2017-06-28 Outpatient VISIT, MHMG MHMG [id number] 10:00:00 10:00:00 NURSE STW 20 [facility] 2017-06-28 2017-06-28 Outpatient VISIT, MHMG MHMG [id number] 10:00:00 10:00:00 NURSE STWC 20 [facility] 2017-06-28 2017-06-28 Outpatient MHIE MHIE [id number] Memoria 09:00:00 09:00:00 20 gladys [place] 2017-06-21 2017-06-23 Phone nullFlavo MHMG [id number] Memoria 19:39:00 05:59:59 Message r Cardiology 09 gladys [place] 2017-06-21 2017-06-23 Phone nullFlavo MHMG [id number] Memoria 19:39:00 05:59:59 Message r Cardiology 09 gladys [place] 2017-06-21 2017-06-22 Outpatient MHMG MHMG [id number] 13:39:00 23:59:59 09 2017-06-14 2017-06-16 Phone nullFlavo MG Family [id number] Memoria 14:53:00 05:59:59 Message r Medicine 08 gladys [place] 2017-06-14 2017-06-16 Phone nullFlavo MG Family [id number] Memoria 14:53:00 05:59:59 Message r Medicine 08 gladys [place] 2017-06-14 2017-06-15 Outpatient MHMG MHMG [id number] 08:53:00 23:59:59 08 2017-06-14 2017-06-15 Outpatient nullFlavo MG Family 4 [id number] Memoria 14:15:00 05:59:59 r Medicine 42 gladys [place] 2017-06-14 2017-06-15 Outpatient nullFlavo MG Family 4 [id number] Memoria 14:15:00 05:59:59 r Medicine 42 gladys [place] 2017-06-14 2017-06-14 Outpatient Doran, MG MHMG [id number] 08:15:00 23:59:59 Luca 42 2017-06-14 2017-06-14 Outpatient MHIE MHIE [id number] Memoria 08:15:00 08:15:00 41 gladys [place] 2017-04-27 2017-04-28 Outpatient nullFlavo [facility] Family 4 [id number] Memoria 15:15:00 05:59:59 r Medicine 18 gladys [place] 2017-04-27 2017-04-28 Outpatient Chloeo [facility] Family 4 [id number] Memoria 15:15:00 05:59:59 r Medicine 18 gladys [place] 2017-04-27 2017-04-27 [facility] [id number] 09:15:00 23:59:59 Onofre P 18 2017-04-27 2017-04-27 Outpatient MHIE MHIE [id number] Memoria 09:15:00 09:15:00 17 gladys Dariel 2017-03-21 2017-03-21 Outpatient MHIE MHIE [id number] Memoria 09:15:00 09:15:00 32 gladys Dariel 2017-03-21 2017-03-21 Outpatient MHIE MHIE [id number] Memoria 09:15:00 09:15:00 32 gladys [place] 2017-03-14 2017-03-14 Outpatient MHIE MHIE [id number] Memoria 08:45:00 08:45:00 37 gladys [place] 2017-03-14 2017-03-14 Outpatient MHIE MHIE [id number] Memoria 08:45:00 08:45:00 38 gladys [place] 2017-03-14 2017-03-14 Outpatient MHIE MHIE [id number] Memoria 08:30:00 08:30:00 39 gladys [place] 2017-03-14 2017-03-14 Outpatient MHIE MHIE [id number] Memoria 08:30:00 08:30:00 38 gladys Vieira 2017-03-14 2017-03-14 Outpatient MHIE MHIE [id number] Memoria 08:00:00 08:00:00 36 gladys Vieira 2017-03-14 2017-03-14 Outpatient MHIE MHIE [id number] Memoria 08:00:00 08:00:00 36 gladys Vieira 2017-02-05 2017-02-05 Outpatient MHIE MHIE [id number] Memoria 09:30:00 09:30:00 31 gladys Vieira 2017-02-05 2017-02-05 Outpatient MHIE MHIE [id number] Memoria 09:30:00 09:30:00 31 gladys Vieira 2017-01-24 2017-01-24 Outpatient MHIE MHIE [id number] Memoria 14:30:00 14:30:00 35 l [facility] 2017-01-24 2017-01-24 Outpatient MHIE MHIE [id number] Memoria 14:30:00 14:30:00 35 l [facility] 2016-12-19 2016-12-19 Outpatient MHIE MHIE [id number] Memoria 13:30:00 13:30:00 33 l [facility] 2016-12-19 2016-12-19 Outpatient MHIE MHIE [id number] Memoria 13:30:00 13:30:00 33 l [facility] 2016-11-28 2016-11-28 Outpatient MHIE MHIE [id number] Memoria 12:00:00 12:00:00 31 l [facility] 2016-11-28 2016-11-28 Outpatient MHIE MHIE [id number] Memoria 12:00:00 12:00:00 31 l [facility] 2016-09-15 2016-09-15 Outpatient MHIE MHIE [id number] Memoria 09:45:00 09:45:00 17 l [facility] 2016-09-15 2016-09-15 Outpatient MHIE MHIE [id number] Memoria 09:45:00 09:45:00 17 l [facility] 2016-08-07 2016-08-07 Outpatient MHIE MHIE [id number] Memoria 09:45:00 09:45:00 24 l [facility] 2016-08-07 2016-08-07 Outpatient MHIE MHIE [id number] Memoria 09:45:00 09:45:00 25 l [facility] 2016-08-03 2016-08-03 Outpatient MHIE MHIE [id number] Memoria 15:00:00 15:00:00 27 l [facility] 2016-08-03 2016-08-03 Outpatient MHIE MHIE [id number] Memoria 15:00:00 15:00:00 27 l [facility] 2016-07-25 2016-07-25 Outpatient MHIE MHIE [id number] Memoria 15:00:00 15:00:00 30 l [facility] 2016-07-25 2016-07-25 Outpatient MHIE MHIE [id number] Memoria 15:00:00 15:00:00 30 l [facility] 2016-07-24 2016-07-24 Outpatient MHIE MHIE [id number] Memoria 15:00:00 15:00:00 29 l [facility] 2016-07-24 2016-07-24 Outpatient MHIE MHIE [id number] Memoria 15:00:00 15:00:00 28 l [facility] 2016-07-21 2016-07-22 Outpt Diag nullFlavo [facility] [id number] Memoria 20:03:00 05:59:00 Services r Outpatient 01 l Imaging [facility] [place] 2016-07-21 2016-07-22 [place] [id number] Memoria 20:03:00 05:59:00 Services r Outpatient 01 l Imaging [facility] [place] 2016-07-21 2016-07-21 Outpatient Abbie, MH29 [id number] 14:03:00 23:59:00 Abdifatah Hira 2016-07-10 2016-07-10 Outpatient MHIE MHIE [id number] Memoria 13:30:00 13:30:00 26 l [facility] 2016-07-10 2016-07-10 Outpatient MHIE MHIE [id number] Memoria 13:30:00 13:30:00 26 l [facility] 2016-07-10 2016-07-10 Outpatient MHIE MHIE [id number] Memoria 09:45:00 09:45:00 24 l [facility] 2016-07-10 2016-07-10 Outpatient MHIE MHIE [id number] Memoria 09:45:00 09:45:00 24 l [facility] 2016-07-07 2016-07-08 Outpt Diag nullFlavo [facility] [id number] Memoria 16:35:00 05:59:00 Services r Outpatient 00 l Imaging [facility] [place] 2016-07-07 2016-07-08 Outpt Diag nullFlavo [facility] [id number] Memoria 16:35:00 05:59:00 Services r Outpatient 00 l Imaging [facility] [place] 2016-07-07 2016-07-07 Outpatient [place], MH29 MH29 [id number] 10:35:00 23:59:00 Abdifatah Hira 2016-07-03 2016-07-03 Outpatient MHIE MHIE [id number] Memoria 09:00:00 09:00:00 23 l [facility] 2016-07-03 2016-07-03 Outpatient MHIE MHIE [id number] Memoria 09:00:00 09:00:00 23 gladys Dariel 2016-07-03 2016-07-03 Outpatient MHIE MHIE [id number] Memoria 08:45:00 08:45:00 22 gladys Dariel 2016-07-03 2016-07-03 Outpatient MHIE MHIE [id number] Memoria 08:45:00 08:45:00 22 gladys Dariel 2016-06-22 2016-06-22 Outpatient MHIE MHIE [id number] Memoria 10:30:00 10:30:00 07 gladys Vieira 2016-06-22 2016-06-22 Outpatient MHIE MHIE [id number] Memoria 10:30:00 10:30:00 07 gladys Vieira 2016-05-18 2016-05-18 Outpatient MHIE MHIE [id number] Memoria 09:45:00 09:45:00 19 gladys Vieira 2016-05-18 2016-05-18 Outpatient MHIE MHIE [id number] Memoria 09:45:00 09:45:00 19 gladys Vieira 2016-04-28 2016-04-28 Outpatient MHIE MHIE [id number] Memoria 10:00:00 10:00:00 15 gladys Vieira 2016-04-28 2016-04-28 Outpatient MHIE MHIE [id number] Memoria 10:00:00 10:00:00 15 gladys Vieira 2016-04-21 2016-04-21 Outpatient MHIE MHIE [id number] Memoria 14:30:00 14:30:00 05 gladys Vieira 2016-04-21 2016-04-21 Outpatient MHIE MHIE [id number] Memoria 14:30:00 14:30:00 05 gladys Vieira 2016-03-17 2016-03-17 Outpatient MHIE MHIE [id number] Memoria 09:45:00 09:45:00 13 gladys Vieira 2016-03-17 2016-03-17 Outpatient MHIE MHIE [id number] Memoria 09:45:00 09:45:00 13 gladys Vieira 2016-02-25 2016-02-25 Outpatient MHIE MHIE [id number] Memoria 08:30:00 08:30:00 16 gladys Vieira 2016-02-25 2016-02-25 Outpatient MHIE MHIE [id number] Memoria 08:30:00 08:30:00 16 gladys Vieira 2016-02-07 2016-02-07 Outpatient MHIE MHIE [id number] Memoria 10:15:00 10:15:00 14 gladys Vieira 2016-02-07 2016-02-07 Outpatient MHIE MHIE [id number] Memoria 10:15:00 10:15:00 14 gladys Vieira 2015-09-16 2015-09-16 Outpatient MHIE MHIE [id number] Memoria 09:45:00 09:45:00 04 gladys Vieira 2015-09-16 2015-09-16 Outpatient MHIE MHIE [id number] Memoria 09:45:00 09:45:00 04 gladys Vieira 2015-08-03 2015-08-03 Outpatient MHIE MHIE [id number] Memoria 11:00:00 11:00:00 12 gladys Vieira 2015-08-03 2015-08-03 Outpatient MHIE MHIE [id number] Memoria 11:00:00 11:00:00 11 gladys Vieira 2015-08-03 2015-08-03 Outpatient MHIE MHIE [id number] Memoria 11:00:00 11:00:00 11 gladys Vieira 2015-08-03 2015-08-03 Outpatient MHIE MHIE [id number] Memoria 11:00:00 11:00:00 12 gladys Vieira 2015-08-02 2015-08-02 Outpatient MHIE MHIE [id number] Memoria 16:15:00 16:15:00 10 gladys Vieira 2015-08-02 2015-08-02 Outpatient MHIE MHIE [id number] Memoria 16:15:00 16:15:00 10 gladys Vieira 2015-07-15 2015-07-15 Outpatient MHIE MHIE [id number] Memoria 13:45:00 13:45:00 09 gladys Vieira 2015-07-15 2015-07-15 Outpatient MHIE MHIE [id number] Memoria 13:45:00 13:45:00 09 gladys Vieira 2015-06-23 2015-06-23 Outpatient MHIE MHIE [id number] Memoria 09:30:00 09:30:00 08 gladys Vieira 2015-06-23 2015-06-23 Outpatient MHIE MHIE [id number] Memoria 09:30:00 09:30:00 08 gladys Vieira 2015-06-17 2015-06-17 Outpatient MHIE MHIE [id number] Memoria 10:00:00 10:00:00 03 l [facility] 2015-06-17 2015-06-17 Outpatient MHIE MHIE [id number] Memoria 10:00:00 10:00:00 06 l Dariel 2015-06-17 2015-06-17 Outpatient MHIE MHIE [id number] Memoria 10:00:00 10:00:00 03 l Dariel 2015-06-17 2015-06-17 Outpatient MHIE NICOLEIE [id number] Memoria 10:00:00 10:00:00 06 l Dariel 2015-06-17 2015-06-17 Outpatient MHIE MHIE [id number] Memoria 09:45:00 09:45:00 00 gladys Dariel 2015-06-17 2015-06-17 Outpatient MHIE NICOLEIE [id number] Memoria 09:45:00 09:45:00 00 gladys Dariel 2015-04-21 2015-04-21 Outpatient MHIE NICOLEIE [id number] Memoria 14:45:00 14:45:00 01 gladys Vieira 2015-04-21 2015-04-21 Outpatient MHIE NICOLEIE [id number] Memoria 14:45:00 14:45:00 01 gladys Dariel 2015-03-17 2015-03-17 Outpatient MHIE NICOLEIE [id number] Memoria 14:00:00 14:00:00 02 gladys Dariel 2015-03-17 2015-03-17 Outpatient MHIE NICOLEIE [id number] Memoria 14:00:00 14:00:00 02 gladys Dariel Results Test Description Test Time Test Comments Results Result Comments Source AFB CULTURE + SMEAR (NON-SPUTUM) 2020-03-03 08:38:00 Test Item Value Reference Range Interpretation Comme nts CULTURE (BEAKER) (test code = 1095) No acid-fast bacilli isolated i n 42 days AFB SMEAR (BEAKER) (test code = 994) No acid fast bacilli seen AFB CULTURE + SMEAR (NON-SPUTUM)2020-03-03 08:38:00 [...] fast bacilli (test code = 994) seen FUNGUS CULTURE + [id number] 16:29:00 Test Item Value Reference Range Interpretation Comments CULTURE (BEAKER) (test No fungus isolated in code = 1095) 28 days FUNGUS SMEAR (BEAKER) No fungi seen (test code = 1406) FUNGUS CULTURE + [id number] 16:29:00 Test Item Value Reference Range Interpretation Comments CULTURE (BEAKER) (test No fungus isolated in code = 1095) 28 days FUNGUS SMEAR (BEAKER) No fungi seen (test code = 1406) FUNGUS CULTURE + [id number] 16:29:00 Test Item Value Reference Range Interpretation Comments CULTURE (BEAKER) (test No fungus isolated in code = 1095) 28 days FUNGUS SMEAR (BEAKER) No fungi seen (test code = 1406) ANAEROBIC [id number] 19:02:00 Test Item Value Reference Range Interpretation Comments CULTURE (BEAKER) (test No anaerobes isolated code = 1095) ANAEROBIC [id number] 18:50:00 Test Item Value Reference Range Interpretation Comments CULTURE (BEAKER) (test No anaerobes isolated code = 1095) ANAEROBIC [id number] 18:49:00 Test Item Value Reference Range Interpretation Comments CULTURE (BEAKER) (test No anaerobes isolated code = 1095) SURGICALLY OBTAINED CULTURE + GRAM [id number] 12:55:00 Test Item Value Reference Range Interpretation Comments CULTURE (BEAKER) (test code No growth = 1095) GRAM STAIN RESULT (BEAKER) No WBCs (test code = 1123) GRAM STAIN RESULT (BEAKER) No organisms seen (test code = 60686) SURGICALLY OBTAINED CULTURE + GRAM [id number] 12:54:00 Test Item Value Reference Range Interpretation Comments CULTURE (BEAKER) (test code No growth = 1095) GRAM STAIN RESULT (BEAKER) 1+ WBCs (test code = 1123) GRAM STAIN RESULT (BEAKER) No organisms seen (test code = 70647) SURGICALLY OBTAINED CULTURE + GRAM [id number] 12:53:00 Test Item Value Reference Range Interpretation Comments CULTURE (BEAKER) (test code No growth = 1095) GRAM STAIN RESULT (BEAKER) 1+ WBCs (test code = 1123) GRAM STAIN RESULT (BEAKER) No organisms seen (test code = 56929) TISSUE [id number] 12:16:00Surgical Pathology Report Case: [id number] Authorizing Provider: Darrick Vick Collected: 01/14/2020 11:55 AM Jovi Martinez MD Ordering Location: [facility] OR Received: 01/14/2020 04:17 PM Periop erative Services Pathologist: Kenia Chaney MD Specimen: Explant, RIGHT KNEE TOTAL REVISION A. HARDWARE, REMOVAL, GROSS EXAMINATION ONLY: - HARDWARE IDENTIFIED (SEE GROSS DESCRIPTION). Signing Pathologist Direct Phone Line: [phone] signed by Kenia Chaney MD on 01/15/2020 at 12:16 [id number] Preop diagnosis: Mechanical loosening of internal left knee prosthetic joint, initial encounter. ExplantReceived fresh labeled with the patient's name, accession number and "right knee total revision" are three pieces of metallic alcantara to alcantara-white orthopedic hardware ranging from 6.4 to 6.5 cm in greatest dimension. The following inscription is identified: [id number] [id number] 2.5 PE 10 [id number] gross photograph is taken. No sections are submitted. This case is for gross examination only. PA/pl [facility], Department of Pathology, [address] [place] [address], [facility], [facility], [address] [place] [address], [facility], [address] [place] [id number], XPLHW METABOLIC [id number] 05:02:00 Test Item Value Reference Range Interpretation [...] NOT APPLICABLE FOR DIALYSIS PATIEN TS. CBC W/PLT COUNT & AUTO [id number] 04:49:00 Test Item Value Reference Range Interpretation [...] PERCENT (BEAKER) (test code = 2801) SPIN/CONCENTRATION [id number] 01:24:00 Test Item Value Reference Range Interpretation Comments CONCENTRATION CHARGED (BEAKER) (test Done code = 2657) RAD, KNEE, 1 OR 2 VIEWS, [id number] 17:25:00AP and lateral views of the prosthetic [...] MDReport Verified Date/Time: 01/14/2020 17:25:10 Reading Location: [place] [address]
--- NOTE | 2022-08-04 09:56 | RAD REPORT ---
EXAM DESCRIPTION: CT - C Spine Wo Con - 08/04/2022 9:40 am CLINICAL HISTORY: Pain. COMPARISON: Cervical spine radiographs 08/03/2022. TECHNIQUE: Axial 2 mm thick images of the cervical spine were obtained with sagittal and coronal rec onstruction images generated and reviewed. All CT scans are performed using dose optimization technique as appropriate and may include automated exposure control or mA/KV adjustment according to patient size. FINDINGS: Cervical vertebral body heights are normal. Straightening of normal cervical lordosis, whi ch could be positional or secondary to muscle spasm. Well-circumscribed rounded lucency at the base o f the odontoid process on the left, nonspecific, and could represent a simple or degenerative bone cy st, benign in appearance. Multilevel endplate degenerative changes, and facet arthropathy. Ankylosis across the right C3-4 and partial ankylosis across the right C4-5 and left C3-4 facet articulations. Up to moderate disc height loss most notably at C3-4. No significant bony canal stenosis. Multilevel bony neural foraminal narrowing secondary to uncoverte bral joint and facet arthropathy up to moderate to advanced bilaterally at C4-5 and C5-6. Degenerativ e C1-2 pannus with mild mass effect upon the ventral CSF space. No fracture or acute bony abnormality. No paraspinal mass or hematoma. IMPRESSION: No acute fracture or subluxation. 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 Multilevel degenerative changes as above, contributing to moderate to advanced bilateral neural tereso inal narrowing at C4-5 and C5-6.
[2022-08-04] MEDS ORDERED: KETOROLAC 30 MG/ML INJ ONE (10:31)
[2022-08-04] MEDS ORDERED: dexAMETHasone 10 MG/ML VIAL ONE (10:31)
[2022-08-04 10:33] LABS: Absolute Lymphocytes (CBC) 1.8 K/uL (0.7-4.9); Hematocrit 34.3 % (36.0-45.0); Lymphocytes % 22.8 % (15.3-44.8); MCV 88.4 fL (80-100); MPV 9.2 fL (7.6-11.3); RBC Red Blood Cell Count 3.88 M/uL (3.86-4.86)
--- NOTE | 2022-08-04 10:52 | ER ---
Nurse's Notes [facility] Name: Bo Boudreaux Age: 81 yrs Sex: Female : 1940 Arrival Date: 08/04/2022 Time: 08:52 Bed DIS4 Private MD: Oscar Barrera V Diagnosis: Sprain of joints and ligaments of other parts of neck, initial encounter;Other cervical disc degeneration at C5-C6 level;Other cervical disc degeneration at C4-C5 level Presentation: 08/04 09:21 Chief complaint: "Dr. Barrera sent me for x rays yesterday, he called and told me I hb needed to come to ER today." Reports neck pain x months. Coronavirus screen: At this time, the client does not indicate any symptoms associated with coronavirus-19. Ebola Screen: No symptoms or risks identified at this time. Initial Sepsis Screen: Does the patient meet any 2 criteria? No. Patient's initial sepsis screen is negative. Does the patient have a suspected source of infection? No. Patient's initial sepsis screen is negative. Risk Assessment: Do you want to hurt yourself or someone else? Patient reports no desire to harm self or others. Onset of symptoms was August 04, 2022. 09:21 Method Of Arrival: Ambulatory hb 09:21 Acuity: JORJE 3 hb Historical: - Allergies: 09:23 PENICILLINS; hb - PMHx: 09:23 Hyperlipidemia; Hypertension; hb - Immunization history:: Adult Immunizations up to date. - Social history:: Smoking status: Patient denies any tobacco usage or history of. - Family history:: not pertinent. Screenin:25 [facility] ED Fall Risk Assessment (Adult) History of falling in the last 3 months, jl7 including since admission No falls in past 3 months (0 pts). Abuse screen: Denies threats or abuse. Denies injuries from another. Nutritional screening: No deficits noted. Tuberculosis screening: No symptoms or risk factors identified. Assessment: 10:25 General: Appears in no apparent distress. uncomfortable, Behavior is calm, cooperative, jl7 appropriate for age. Pain: Complains of pain in posterior neck Pain currently is 5 out of 10 on a pain scale. Pain began several months ago. Neuro: Level of Consciousness is awake, alert, obeys commands, Oriented to person, place, time, situation. Cardiovascular: Denies chest pain, Patient's skin is warm and dry. Respiratory: Airway is patent Respiratory effort is even, unlabored, Respiratory pattern is regular, symmetrical, Denies shortness of breath. Derm: Skin is pink, warm \\T\\ dry. Vital Signs: 09:21 BP 148 / 88; Pulse 81; Resp 16; Temp 98.4; Pulse Ox 100% on R/A; Weight 75.75 kg; hb Height 5 ft. 5 in. (165.10 cm); Pain 5/10; 09:21 Body Mass Index 27.79 (75.75 kg, 165.10 cm) hb ED Course: 08:52 Patient arrived in ED. mr 08:52 Oscar Barrera MD is Private Physician. mr 08:58 Alex Shelley MD is Attending Physician. adama 09:20 Johanna Kamara, ADRIANA is Primary Nurse. hb 09:22 Triage completed. hb 09:23 Arm band placed on. hb 09:41 CT C Spine In Process Unspecified. EDMS 10:25 Patient has correct armband on for positive identification. jl7 10:25 No provider procedures requiring assistance completed. Initial lab(s) drawn, by or, jl7 sent to lab. Inserted saline lock: 20 gauge in left antecubital area, using aseptic technique. Blood collected. 10:50 Oscar Barrera MD is Referral Physician. adama 11:13 Umang Tripathi, ADRIANA is Primary Nurse. jl7 11:13 IV discontinued, intact, bleeding controlled, No redness/swelling at site. Pressure jl7 dressing applied. Administered Medications: 10:27 Not Given (Physician Discretion): NS 0.9% 1000 ml IV at 125 ml/hr continuous jl7 10:30 Drug: Ketorolac 15 mg Route: IVP; Site: left antecubital; jl7 10:55 Follow up: Response: No adverse reaction; Pain is decreased jl7 10:32 Drug: Decadron - Dexamethasone 5 mg Route: IVP; Site: left antecubital; jl7 11:00 Follow up: Response: No adverse reaction jl7 Medication: 10:25 VIS not applicable for this client. jl7 Outcome: 10:52 Discharge ordered by . adama 11:13 Discharged to home ambulatory. jl7 11:13 Condition: stable 11:13 Discharge instructions given to patient, Instructed on discharge instructions, follow up and referral plans. medication usage, Demonstrated understanding of instructions, follow-up care, medications, Prescriptions given X 3. 11:14 Patient left the ED. jl7 Signatures: Dispatcher [employer] EDAlex Devi MD MD cha Rivera, Mary KamaraJohanna RN RN hb Leal, Jahala, RN RN jl7 Corrections: (The following items were deleted from the chart) : 09:21 Acuity: JORJE 3 hb hb 10:16 09:21 Pulse 81bpm; Resp 16bpm; Pulse Ox 100% RA; Temp 98.4F; 75.75 kg; Height 5 ft. 5 hb in.; BMI: 27.7; Pain 5/10; hb 10:23 09:21 Acuity: JORJE 4 hb hb
--- NOTE | 2022-08-04 10:52 | EDPHYS ---
Physician Documentation [facility] Name: Bo Boudreaux Age: 81 yrs Sex: Female : 1940 Arrival Date: 08/04/2022 Time: 08:52 Bed DIS4 Private MD: Oscar Barrera V ED Physician Alex Shelley HPI: 08/04 10:34 This 81 yrs old Black Female presents to ER via Ambulatory with complaints of Neck pain.adama 10:34 The patient or guardian complains of decreased range of motion, pain. The symptoms are adama located on the base of the skull. Onset: The symptoms/episode began/occurred 4 week(s) ago. Context: The problem was sustained at an unknown location. Associated signs and symptoms: The patient has no apparent associated signs or symptoms. Severity of symptoms: At their worst the symptoms were mild, moderate, in the emergency department the symptoms are unchanged. The patient has experienced similar episodes in the past, several times. Historical: - Allergies: 09:23 PENICILLINS; hb - PMHx: 09:23 Hyperlipidemia; Hypertension; hb - Immunization history:: Adult Immunizations up to date. - Social history:: Smoking status: Patient denies any tobacco usage or history of. - Family history:: not pertinent. ROS: 10:34 Constitutional: Negative for fever, chills, and weight loss, Eyes: Negative for injury, adama pain, redness, and discharge, ENT: Negative for injury, pain, and discharge, Cardiovascular: Negative for chest pain, palpitations, and edema, Respiratory: Negative for shortness of breath, cough, wheezing, and pleuritic chest pain, Abdomen/GI: Negative for abdominal pain, nausea, vomiting, diarrhea, and constipation, Back: Negative for injury and pain, : Negative for injury, bleeding, discharge, and swelling, MS/Extremity: Negative for injury and deformity, Skin: Negative for injury, rash, and discoloration, Neuro: Negative for headache, weakness, numbness, tingling, and seizure, Psych: Negative for depression, anxiety, suicide ideation, homicidal ideation, and hallucinations, Allergy/Immunology: Negative for hives, rash, and allergies, Endocrine: Negative for neck swelling, polydipsia, polyuria, polyphagia, and marked weight changes, Hematologic/Lymphatic: Negative for swollen nodes, abnormal bleeding, and unusual bruising. 10:34 Neck: Positive for pain with movement, pain at rest. Exam: 10:34 Constitutional: This is a well developed, well nourished patient who is awake, alert, adama and in no acute distress. Head/Face: Normocephalic, atraumatic. Eyes: Pupils equal round and reactive to light, extra-ocular motions intact. Lids and lashes normal. Conjunctiva and sclera are non-icteric and not injected. Cornea within normal limits. Periorbital areas with no swelling, redness, or edema. ENT: Nares patent. No nasal discharge, no septal abnormalities noted. Tympanic membranes are normal and external auditory canals are clear. Oropharynx with no redness, swelling, or masses, exudates, or evidence of obstruction, uvula midline. Mucous membranes moist. Chest/axilla: Normal chest wall appearance and motion. Nontender with no deformity. No lesions are appreciated. Cardiovascular: Regular rate and rhythm with a normal S1 and S2. No gallops, murmurs, or rubs. Normal PMI, no JVD. No pulse deficits. Respiratory: Lungs have equal breath sounds bilaterally, clear to auscultation and percussion. No rales, rhonchi or wheezes noted. No increased work of breathing, no retractions or nasal flaring. Abdomen/GI: Soft, non-tender, with normal bowel sounds. No distension or tympany. No guarding or rebound. No evidence of tenderness throughout. Back: No spinal tenderness. No costovertebral tenderness. Full range of motion. Female : Normal external genitalia. Skin: Warm, dry with normal turgor. Normal color with no rashes, no lesions, and no evidence of cellulitis. MS/ Extremity: Pulses equal, no cyanosis. Neurovascular intact. Full, normal range of motion. Neuro: Awake and alert, GCS 15, oriented to person, place, time, and situation. Cranial nerves II-XII grossly intact. Motor strength 5/5 in all extremities. Sensory grossly intact. Cerebellar exam normal. Normal gait. Psych: Awake, alert, with orientation to person, place and time. Behavior, mood, and affect are within normal limits. 10:34 Neck: External neck: is normal, no acute changes, cellulitis, is not appreciated, crepitus, is not appreciated, ecchymosis, is not appreciated, erythema, is not appreciated, C-spine: appears grossly normal, no acute changes, Trachea: is midline with no obvious abnormalities, ROM/movement: limited range of motion, that is mild, Meningeal signs: are not present. 10:34 Neck: Lymph nodes: no appreciated lymphadenopathy. Vital Signs: 09:21 BP 148 / 88; Pulse 81; Resp 16; Temp 98.4; Pulse Ox 100% on R/A; Weight 75.75 kg; hb Height 5 ft. 5 in. (165.10 cm); Pain 5/10; 09:21 Body Mass Index 27.79 (75.75 kg, 165.10 cm) hb MDM: 08:58 Patient medically screened. adama 10:57 Differential diagnosis: arthritis, Cervical Disc Herniation Cervical Discogenic Pain adama Cervical Facet Syndrome Cervical Raiculopathy Cervical Spondylosis cervical strain, Degenerative Disc Disease fracture, Neck Contusion Osteoarthritis Simple Wedge Fracture Spondylolisthesis Spondylosis torticollis, Unstable Vertebral Fracture. Data reviewed: vital signs, nurses notes, lab test result(s), radiologic studies, CT scan. Consideration of Admission/Observation Escalation of care including admission/observation considered. Management of patient was discussed with the following: Tag Press Operator: radiologist. Independent interpretation of the following test(s) in the Emergency Department CT Scan: My interpretation is no fx. Test considered but Not performed: MRI: no mri cervical spine. Care significantly affected by the following chronic conditions: Hypertension, hyperlipidemia. 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 08/04 09: Order name: CBC with Diff; Complete Time: 10:57 adama 08/04 09: Order name: Comprehensive Metabolic Panel; Complete Time: :57 adama 08/04 08: Order name: CT C Spine; Complete Time: :24 adama Administered Medications: 10:27 Not Given (Physician Discretion): NS 0.9% 1000 ml IV at 125 ml/hr continuous jl7 10:30 Drug: Ketorolac 15 mg Route: IVP; Site: left antecubital; jl7 10:55 Follow up: Response: No adverse reaction; Pain is decreased jl7 10:32 Drug: Decadron - Dexamethasone 5 mg Route: IVP; Site: left antecubital; jl7 11:00 Follow up: Response: No adverse reaction jl7 Disposition Summary: 08/04/22 10:52 Discharge Ordered Location: Home adama Problem: new adama Symptoms: have improved adama Condition: Stable adama Diagnosis - Sprain of joints and ligaments of other parts of neck, initial encounter adama - Other cervical disc degeneration at C5-C6 level adama - Other cervical disc degeneration at C4-C5 level adama Followup: adama - With: Oscar Barrera MD - When: 2 - 3 days - Reason: Recheck today's complaints, Continuance of care, Re-evaluation by your physician Discharge Instructions: - Discharge Summary Sheet adama - Cervical Sprain adama - Degenerative Disk Disease adama - Cervical Sprain, [id number] adama Forms: - Medication Reconciliation Form adama - Thank You Letter adama - Antibiotic Education adama - Prescription Opioid Use adama Prescriptions: - Medrol (Byron) 4 mg Oral Tablets, Dose Pack - take 1 tablet by ORAL route as directed - follow package instructions; 1 adama packet; Refills: 0, Product Selection Permitted - Motrin IB 200 mg Oral Tablet - take 1 tablet by ORAL route every 6 hours As needed as needed with food; 30 adama tablet; Refills: 0, Product Selection Permitted - Tylenol-Codeine #3 300 mg-30 mg Oral - take 1 tablet by ORAL route every 4-6 hours; 20 tablet; Refills: 0, Product adama Selection Permitted Signatures: Dispatcher [employer] Alex Wolff MD MD cha Baxter, Heather, RN ADRIANA Umang Tripathi RN RN jl7
[2022-08-04 10:55] LABS: Albumin 3.8 g/dL (3.4-5.0); Bilirubin Total 0.4 mg/dL (0.2-1.0); Potassium 3.8 mmol/L (3.5-5.1); Protein, Total 7.7 g/dL (6.4-8.2)
[2022-08-04 11:26] VITALS: BP 148/88; TEMP 98.4; O2SAT 100
== END 2022-08-04 11:14 | disposition home or self-care (01) ==
LOC: ER 08:50
DX: S13.8XXA Sprain of joints and ligaments of other parts of neck, initial encounter (principal); M50.321 Other cervical disc degeneration at C4-C5 level; M50.322 Other cervical disc degeneration at C5-C6 level; Z88.0 Allergy status to penicillin
CPT/HCPCS: 85025; 36415; 80053; 72125; 96375; 96374; 99284; J1100

== ENCOUNTER 2022-11-09 07:20 | Emergency (ER) | payer OTHER ==
--- OUTSIDE RECORDS SUMMARY | 2022-11-09 07:26 | XMS REPORT | Continuity of Care Document ---
:1940 Author Organization [facility] t Address [address] [place] [address] [address] [place] [address] Care Team Providers Name Role Phone Oscar Pedroza Primary Care Physician DARRICK VICK Attending Clinician Unavailable DARRICK VICK Attending Clinician Unavailable Nurse, [facility] Attending Clinician Unavailable Only, Ang Db Test Attending Clinician Unavailable Bel Ramos MD Attending Clinician BEL RAMOS Attending Clinician Unavailable ALEK ZHU Attending Clinician Unavailable Nurse, Adc Pob Immunization Attending Clinician Unavailable Alek Zhu DO Attending Clinician Berny WRIGHT, Chantale Ackerman Attending Clinician Unavailable CARLO HERNANDEZ Attending Clinician Unavailable Doctor Unassigned, [place] Attending Clinician Unavailable Darrick Vick MD Attending Clinician Mar Campos Attending Clinician Gladys Newman Attending Clinician Brendon Matthews Attending Clinician VISIT, NURSE [facility] MAM[facility] Attending Clinician Unavailable VISIT, NURSE ST XRAY Attending Clinician Unavailable José Miguel Matos Attending Clinician Luca Doran Attending Clinician Onofre Rosario Attending Clinician Alan Thrasher Attending Clinician Vanessa Mathur Attending Clinician VISIT, NURSE BERNARDO WALKER Attending Clinician Unavailable Lazaro Raymond Aragon Attending Clinician Abdifatah Leiva Attending Clinician DARRICK VICK Admitting Clinician Unavailable Payers Payer Name Policy Type Policy Number Effective Date Expiration Date S [place] MEDICARE [id number] PENDING SALE TO [facility] CHOICE [id number] 2018 PPO/MEDICARE PPO 00:00:00 [employer] HMO POS [id number] 2018 00:00:00 Problems Condition Condition Condition Status Onset Resolution Last Treating Co mments Source Name Details Category Date Date Treatment Clinician Date Primary Primary Disease Active [facility] [place] osteoarthr osteoarthr 02-27 Co llege itis of itis of 00:00: of left knee left knee 00 Medi josué e Loosening Loosening Disease [facility] 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
Data migrated from [employer] on 12/16/14. 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
Data migrated from [employer] on 12/16/14.
Data migrated from [employer] on 11/07/14. Medical Group,[facility] her [facility], [facility] [place] Edema Edema Problem Active 2019-11-27 Memor ia (finding) (finding) 01-21 21:25:13 l Active 00:00: Dariel 01/21/2013 00 Problem 11/27/2019 Data migrated from [employer] on 11/07/14. Medical Group,[facility] her [facility], [facility] [place] Hypertensi Hypertens Problem Active 2017-06-18 Memoria ve episode ernst 01-21 03:07:06 l (disorder) episode 00:00: Jodi nn (disorder) 00 Active 01/21/2013 Problem 06/18/2017 Data migrated from [employer] on 11/07/14. [facility], [facility] [place] Hyperlipid Hyperlipi Problem Active 2016-07-24 Memoria emia demia 01-21 02:33:04 l (disorder) (disorder) 00:00: Jared salmonann Active 00 01/21/2013 Problem 07/24/2016 Data migrated from [employer] on 12/16/14.
Data migrated from [employer] on 11/07/14. [facility] [place] Diverticul Diverticu Problem Active 2019-11-27 Memoria ar disease lar 01-02 21:25:13 l of colon disease of 00:00: Esther canela (disorder) colon 00 (disorder) Active 01/02/2013 Problem 11/27/2019 Data migrated from [employer] on 11/07/14. Medical Group,[facility] her [facility], [facility] [place] Internal Internal Problem Active 2019-11-27 Memoria hemorrhoid hemorrhoid 01-02 21:25:13 l s s 00:00: Dariel (disorder) (disorder) 00 Active 01/02/2013 Problem 11/27/2019 Data migrated from [employer] on 11/07/14. Medical Group,[facility] her [facility], [facility] [place] Osteoarthr Osteoarth Problem Active 2011-062019-11-27 Memoria itpaulino ritis 08-08 21:25:13 l (disorder) (disorder) 00:00: He rmann Active 00 06/07/2012 Problem 11/27/2019 Data migrated from [employer] on 11/07/14. 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 21:25:13 l s s Dariel (disorder) (disorder) Active Problem 11/27/2019 [facility] her Neuro, [facility] [place] Gallbladde Gallbladd Problem Active 2019-11-27 Memoria r calculus er 21:25:13 l (disorder) calculus Herm hilton (disorder) Active Problem 11/27/2019 [facility] her Neuro, [facility] [place] Degenerati Degenerat Problem Active 2019-11-27 Memoria on of ion of 21:25:13 l cervical cervical Berhane n interverte interverte bral disc bral disc (disorder) (disorder) Active Problem 11/27/2019 [facility] her [facility], [facility] [place] Drug Drug Problem Active 2019-11-27 Memor ia therapy therapy 21:25:13 l finding finding Dariel (finding) (finding) Active Problem 11/27/2019 [facility] her [facility], [facility] [place] 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 21:25:13 l (disorder) (disorder) He rmann Active Problem 11/27/2019 [facility] her [facility], [facility] [place] Eczema Eczema Problem Active 2019-11-27 Mem oria (disorder) (disorder) 21:25:[address] Problem 11/27/2019 Medical Group, [facility] [place] Finding of Finding Problem Active 2019-11-27 Memoria body mass of body 21:25:13 l index mass index Berhane n (finding) (finding) Active Problem 11/27/2019 Medical Group,[facility], [facility] [place] Hypergamma Hypergamm Problem Active 2019-11-27 Memoria globulinem aglobuline 21:25:13 l ia raza Dariel (finding) (finding) Active Problem 11/27/2019 Medical Group,[facility], [facility] [place] Hyperglyce Hyperglyc Problem Active 2019-11-27 Memoria raza emia 21:25:13 l (disorder) (disorder) He rmann Active Problem 11/27/2019 [facility], [facility] [place] Lesion of Lesion of Problem Active 2019-11-27 Memoria liver liver 21:25:13 l (finding) (finding) Herm hilton Active Problem 11/27/2019 Medical Group,[facility] her [facility], [facility] [place] Menopause Menopause Problem Active 2019-11-27 Memoria present present 21:25:13 l (finding) (finding) Herm hilton Active Problem 11/27/2019 Medical Group,[facility] her [facility], [facility] [place] 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 Memor ia hyperlipid hyperlipid 21:25:13 l emia emia Dariel (disorder) (disorder) Active Problem 11/27/2019 Medical Group,[facility], [facility] [place] 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 21:25:[address] (finding) (finding) Active Problem 11/27/2019 Medical Group,[facility], [facility] [place] Neck pain Neck pain Problem Active 2019-11-27 Memoria (finding) (finding) 21:25:13 l Active Dariel Problem 11/27/2019 Medical Group,[facility], [facility] [place] Osteoporos Osteoporo Problem Active 2019-11-27 Memoria is sis 21:25:13 l (disorder) (disorder) He rmann Active Problem 11/27/2019 Medical Group,[facility], [facility] [place] Atrophic Atrophic Problem Active 2019-11-27 Memoria vaginitis vaginitis 21:25:13 l (disorder) (disorder) He rmann Active Problem 11/27/2019 Medical Group,[facility] [place] Hypertensi Hypertens Problem Active 2019-11-27 Memoria ve ernst 21:25:13 l disorder, disorder, Herm hilton systemic systemic arterial arterial (disorder) (disorder) Active Problem 11/27/2019 Medical Group Osteopenia Osteopeni Problem Active 2017-06-18 Memoria (disorder) a 03:07:06 l (disorder) Berhane n Active Problem 06/18/2017 [facility] Group, [facility] [place] Body mass Body mass Problem Active 2016-07-24 Memoria index index 02:33:[address] 25-29 - 25-29 - overweight overweight (finding) (finding) Active Problem 07/24/2016 [facility] [place] Right Right Problem Active 2016-07-10 Memor ia lower lower 03:43:11 l quadrant quadrant Berhane n pain pain (finding) (finding) Active Problem 07/10/2016 [facility] [place] History of Past Illness Condition Condition Condition Status Onset Resolution Last Treating Co mments Source Name Details Category Date Date Treatment Clinician Date Other Other Problem 2019-01-29 2019-01-29 M emoria abnormal abnormal 2- 11:41:30 11:41:30 l and and 06:20: [address] inconclusi inconclusi 36 ve ve findings findings on on diagnostic diagnostic imaging of imaging of breast breast 07/17/2018 01/29/2019 [facility] [place] Asymptomat Problem 2019-01-26 2019-01-26 Memoria ic Asymptomat 07-08 12:07:51 12:07:51 l menopausal ic 16:48: Berhane n state menopausal 00 state 07/08/2018 01/26/2019 Medical Group Postmenopa Problem 2018-2019-01-26 2019-01-26 Memoria usal Postmenopa 07-08 12:07:51 12:07:51 l atrophic usal 16:48: Dariel vaginitis atrophic 00 vaginitis 07/08/2018 01/26/2019 Medical Group Leukoplaki Problem 2019-01-26 2019-01-26 Memoria a of vulva Leukoplaki 07-08 12:07:51 12:07:51 l a of vulva 16:48: Berhane n 07/08/2018 00 01/26/2019 Medical Group Age-relate Age-relat Problem 2018-2019-01-26 2019-01-26 Memoria d ed 07-08 12:07:51 12:07:51 l osteoporos osteoporos 16:48: He rmann is without is without 00 current current pathologic pathologic al al fracture fracture 07/08/2018 9 Medical Group Allergies, Adverse Reactions, Alerts Allergy Allergy Status Severity Reaction(s) Onset Inactive Treating Comm ents Source Name Type Date Date Clinician PENICILL Allergy Active Hives [facility] Penicill Propensi Active [facility] [place] ins ty to 12-28 [place] adverse 00:00: of reaction 00 Medicin s to e drug Penicill Propensi Active Hives As a [facility] 12[facility]28 [facility] adverse 00:[facility]: Medical reaction 00 Ball s NO KNOWN Drug Active [facility]ERGIE [facility] penicill penicill Active Memori a ins<sup> ins<sup> l 1</sup> 1</sup> Dariel dicyclom dicyclom Active Memori a ine<sup> ine<sup> l 2</sup> 2</sup> Dariel penicill penicill Active Memori a ins<sup> ins<sup> l 2</sup> 2</sup> Dariel Social History Social Habit Start Date Stop Date Quantity Comments Source History SDOH [facility] Alcohol Comment Medical C enter History SDOH [facility] Alcohol Std Medical Cente r Drinks History SDOH [facility] Alcohol Binge Medical Carina ter Exposure to 2021-10-25 2021-11-04 Not sure [facility] of SARS-CoV-2 00:00:00 11:31:00 [facility] (event) [place] Alcohol intake 2020-01-14 2020-01-[address] [facility] [facility] 00:00:00 00:00:00 non-drinker of Medical Ce nter alcohol (finding) Tobacco use and 2020-01-07 2020-01-[address] Kiersten kes exposure 00:00:00 00:00:00 Medical Center History SDOH 2020-01-07 2020-01-07 1 CARMEL Dietz Alcohol Frequency 00:00:00 00:00:00 Medical Center Social History 2018-08-01 2018-08-01 [facility] cary 14:27:23 14:27:23 Sex [birth year] CARMEL Joness 00:00:00 00:00:00 Medical Center Smoking Status Start Date Stop Date Source Unknown if ever smoked [facility] Never smoked tobacco [facility] ege of Medicine Medications Ordered Filled Start Stop Current Ordering Indication Dosage Frequency Signature Comments Components Source Medication Medication Date Date Medication? Clinician (SIG) Name Name atorvastati Yes 20mg Take 20 mg [facility] [place] n (LIPITOR) 9-19 by mouth. Col lege 20 MG 09:04: of tablet 36 Medicin e PSYLLIUM OR Yes 1{packe Take 1 B aylor 9- t} Packet by College 09:04: mouth. of 36 Medicin e Calcium Yes 200mg Take 200 [facility] Carbonate 9-19 mg by College 600 MG TABS 09:04: mouth. of 36 [...] Medicin e Cholecalcif 2020- No Take by Kameron ylor geovanna (D3 02-25-17 mouth. College HIGH 15:25: 00:00 of POTENCY) 50 06 :00 Medicin MCG (1999 e [place] CAPS atorvastati 0 Yes 20mg Take 20 mg Сергей n (LIPITOR) 9-17 by mouth. Col lege 20 MG 15:24: of tablet 47 Medicin e PSYLLIUM OR Yes 1{packe Take 1 B aylor 9-17 t} Packet by College 15:24: mouth. of 47 Medicin e atorvastati Yes 20mg Take 20 mg Сергей n (LIPITOR) 9-17 by mouth. Col lege 20 MG 15:24: of tablet 47 Medicin e PSYLLIUM OR 2020-0 Yes 1{packe Take 1 B aylor 9-17 t} Packet by [place] 15:24: mouth. of 47 Medicin e ibuprofen 2020-0 Yes [id number] 600mg Take 1 Tab [facility] [place] (MOTRIN) 02-01 9105 by mouth [place] 600 MG 00:00: every 6 of tablet 00 hours as Medicin needed for e Pain. ibuprofen 2020-0 Yes [id number] 600mg Take 1 Tab [facility] [place] (MOTRIN) 02-01 9105 by mouth [place] 600 MG 00:00: every 6 of tablet 00 hours as Medicin needed for e Pain. ibuprofen 2020-0 Yes [id number] 600mg Take 1 Tab Сергей (MOTRIN) 8 9105 by mouth [place] 600 MG 00:00: every 6 of tablet 00 hours as Medicin needed for e Pain. atorvastati 2020-0 Yes 20mg Take 20 mg [facility] [place] n (LIPITOR) 8-20 by mouth. Col lege 20 MG 15:26: of tablet 14 Medicin e Cholecalcif 2020-0 Yes Take by Baylis eliecer geovanna (D3 8-20 mouth. College HIGH 15:26: of POTENCY) 50 14 Medicin MCG (2000 e [place]) CAPS PSYLLIUM OR 2020-0 Yes 1{packe Take 1 B aylor 8-20 t} Packet by [place] 15:26: mouth. of 14 Medicin e aspirin 2020-0 2020- No 325mg Take 325 Bayl or (GOODSENSE 8 09-07 mg by [place] ASPIRIN) 00:00: 04:59 mouth. of 325 mg 00 :00 Medicin tablet e ibuprofen 2020-0 2020- No 600mg Take 600 Ba ylor (MOTRIN) 8 08-22 mg by [place] 600 MG 00:00: 04:59 mouth. of tablet [...] 21 daily. Center calcium (1,500 mg) Tab atorvastati 2020-0 Yes 20mg QD Take 20 [...] 10:54: daily. Medi elmira 50 mcg 21 Ball (2,000 unit) Cap calcium 2020-0 Yes 200mg QD Take 200 [facility] carbonate 8-06 mg by [facility] (OS-ELMIRA) 10:54: mouth Medical 600 mg 21 daily. Center calcium (1,500 mg) Tab hydrocodone 2020-0 Yes 1{tbl} Take 1 Tab [facility] [place] -acetaminop 8-04 by mouth Kelly ege hen (NORCO) 00:00: every 8 of 10-325 MG 00 hours as Medici n per tablet needed for e Pain. hydrocodone 2020-0 Yes 1{tbl} Take 1 Tab Сергей -acetaminop 8-04 by mouth Kelly ege hen (NORCO) 00:00: every 8 of 10-325 MG 00 hours as Medici n per tablet needed for e Pain. hydrocodone 2020-0 Yes 1{tbl} Take 1 Tab Сергей -acetaminop 8-04 by mouth Kelly ege hen (NORCO) 00:00: every 8 of 10-325 MG 00 hours as Medici n per tablet needed for e Pain. hydrocodone 2020-0 Yes 1{tbl} Take 1 Tab [facility] [place] -acetaminop 8-04 by mouth Kelly ege hen (NORCO) 00:00: every 8 of 10-325 MG 00 hours as Medici n per tablet needed for e Pain. Levocetiriz 2020-0 Yes TAKE 1 [facility] or ine 7-06 TABLET BY [facility] 00:00: MOUTH of ride 5 MG 00 EVERYDAY Medici n TABS AT BEDTIME e Levocetiriz 2020-0 Yes TAKE 1 Bayl or ine 7-06 TABLET BY [facility] 00:00: MOUTH of ride 5 MG 00 EVERYDAY Medici n TABS AT BEDTIME e levocetiriz 2020-[address] [facility] [facility] (XYZAL) 7-06 [facility] 5 MG tablet 00:00: Medica l 00 Center levocetiriz 2020-[address] [facility] in[facility] (XYZAL) 7-06 [facility] 5 MG tablet 00:00: Medica l 00 Center Levocetiriz 2020-0 2020- No TAKE 1 Baylis eliecer ine 7-06 09-17 TABLET BY [facility] 00:00: 00:00 MOUTH of ride 5 MG 00 :00 EVERYDAY Medici n TABS AT BEDTIME e Pseudoeph-B 2020-0 Yes TAKE 10 ML Сергей romphen-DM 6-29 BY MOUTH 4 Col lege 30-2-10 00:00: TIMES A of MG/5ML SYRP 00 DAY Medici n NEEDED e Pseudoeph-B 2020-0 Yes TAKE 10 ML Сергей romphen-DM 6-29 BY MOUTH 4 Col lege 30-2-10 00:00: TIMES A of MG/5ML SYRP 00 DAY Medici n NEEDED e Pseudoeph-B 2020-0 2020- No TAKE 10 ML Сергей romphen-DM 6-29 -17 BY MOUTH 4 Co llege 30-2-10 00:00: 00:00 TIMES A of MG/5ML SYRP 00 :00 DAY Medici n NEEDED e LUMIGAN 2020-0 Yes INSTILL 1 [facility] 0.01 % 6-11 DROP INTO [place] ophthalmic 00:00: BOTH EYES of solution 00 AT BEDTIME Medic in e LUMIGAN 2020-0 Yes INSTILL 1 [facility] 0.01 % 6-11 DROP INTO [place] ophthalmic 00:00: BOTH EYES of solution 00 AT BEDTIME Medic in e LUMIGAN 2020-0 Yes INSTILL 1 [facility] 0.01 % 6-11 DROP INTO [place] ophthalmic 00:00: BOTH EYES of solution 00 AT BEDTIME Medic in e LUMIGAN 2020-0 Yes INSTILL 1 [facility] 0.01 % 6-11 DROP INTO [place] ophthalmic 00:00: BOTH EYES of solution 00 AT BEDTIME Medic in e bimatoprost 2020-0 Yes INSTILL [address] (LUMIGAN) 6-11 DROP INTO [facility] 0.01 % Drop 00:00: BOTH EYES M edical ophthalmic [address] solution bimatoprost 2020-0 Yes INSTILL [address] (LUMIGAN) 6-11 DROP INTO [facility] 0.01 % Drop 00:00: BOTH EYES M edical ophthalmic [address] solution LUMIGAN 2019-0 2021- No INSTILL 1 [facility] 0.01 % 11-19 DROP INTO [place] ophthalmic 00:00: 00:00 BOTH EYES o f solution 00 :00 AT BEDTIME Medic in e triamcinolo 2020-0 Yes See Admin [facility] 11-17 [facility] ([facility]) 00:00: ns. of 0.1 % cream 00 Medicin e triamcinolo 2020-0 Yes See Admin [facility] 11-17 [facility] ([facility]) 00:00: ns. of 0.1 % cream 00 Medicin e triamcinolo 2020-0 Yes See Admin [facility] 11-17 [facility] ([facility]) 00:00: ns. of 0.1 % cream 00 Medicin e triamcinolo 2020-0 Yes See Admin [facility] 11-17 [facility] ([facility]) 00:00: ns. of 0.1 % cream 00 Medicin e triamcinolo 2020-[address] [facility] 11-17 [facility] ([facility]) 00:00: Medical 0.1 % 00 Ball topical cream triamcinolo 2020-[address] [facility] 11-17 [facility] ([facility]) 00:00: Medical 0.1 % 00 Ball topical cream triamcinolo 2020-0 2021- No See Admin [facility] 11-17 [facility] ([facility]) 00:00: 00:00 ns. of 0.1 % cream [...] tablet 00:00: MOUTH Medical 00 EVERY DAY Center amLODIPine 2020-0 Yes TAKE 1 [facility] (NORVASC) 5 4-28 TABLET BY [facility] es MG tablet 00:00: MOUTH Medical 00 EVERY DAY Center Calcium 600 2020-0 Yes 1 tab, PO, [...] 30 Refill(s) 4, [facility]acy: [id number] atorvastati 2020-0 Yes = 1 tab, Me moria n 20 mg 4-20 PO, Daily, l oral tablet 17:28: # 90 tab, H ermann 30 Refill(s) 4, Pharmacy: [id number] atorvastati 2020-0 Yes = 1 tab, Me moria n 20 mg 4-20 PO, Daily, l oral tablet 17:28: # 90 tab, H ermann 30 Refill(s) 4, Pharmacy: [id number] Dextrometho 2020-0 Yes 10 mL, PO, Memoria rphan 2-11 Q4H, # 120 l Hydrobromid 22:52: mL, 0 Jodi nn e 1 MG/ML / 00 [facility]ML [id number] Solution Dextrometho 2020-0 Yes 10 mL, PO, Memoria rphan 2-11 Q4H, # 120 l Hydrobromid 22:52: mL, 0 Jodi nn e 1 MG/ML / 00 Refill(s), [facility] MG[facility]ML [id number] Solution Dextrometho 2020-0 Yes 10 mL, PO, Memoria rphan 2-11 Q4H, # 120 l Hydrobromid 22:52: mL, 0 Jodi nn e 1 MG/ML / 00 Refill(s), [facility]: [facility] MG[facility]ML [id number] Solution azithromyci 2020-0 Yes 500 mg = 1 Memoria n 500 mg 1-07 tab, PO, l oral tablet 20:36: Daily, X 5 Dariel 00 day, # 5 tab, 0 Refill(s), Pharmacy: [id number] azithromyci 2020-0 Yes 500 mg = 1 Memoria n 500 mg 1-07 tab, PO, l oral tablet 20:36: Daily, X [address] 00 day, # 5 tab, 0 Refill(s), Pharmacy: [id number] azithromyci 2020-0 Yes 500 mg = 1 Memoria n 500 mg 1-07 tab, PO, l oral tablet 20:36: Daily, X [address] 00 day, # 5 tab, 0 Refill(s), Pharmacy: [facility] #[id number] omeprazole 2018-06 Yes 20 mg = 1 [...] tab, PO, l MG Oral 16:30: Q12H [address] Tablet 00 Metronidazo 2018-06 Yes 500 mg [...] tab, PO, l MG Oral 16:30: Q12H [address] Tablet 00 Metronidazo 2018-06 Yes 500 mg [...] PO, l Oral 18:46: TID, # [address] Capsule 30 cap, 0 [Tylenol] Refill(s), Pharmacy: [id number] Acetaminoph 2018-06 Yes 325 mg = 1 Memoria en 325 MG 0-17 cap, PO, l Oral 18:46: TID, # 21 Dariel Capsule 30 cap, 0 [Tylenol] Refill(s), Pharmacy: [facility] #[id number] Acetaminoph 2018-06 Yes 325 mg = 1 Memoria en 325 MG 0-17 cap, PO, l Oral 18:46: TID, # 21 Dariel Capsule 30 cap, 0 [Tylenol] Refill(s), Pharmacy: [facility] #[id number] azithromyci 2018-06 Yes 500 mg = 1 Memoria n 500 mg 0-17 tab, PO, l oral tablet 18:46: Daily, X [address] 06 day, # 5 tab, 0 Refill(s), Pharmacy: [facility] #[id number] azithromyci 2018-06 Yes 500 mg = 1 Memoria n 500 mg 0-17 tab, PO, l oral tablet 18:46: Daily, X [address] 06 day, # 5 tab, 0 Refill(s), Pharmacy: [facility] #[id number] azithromyci 2018-06 Yes 500 mg = 1 Memoria n 500 mg 0-17 tab, PO, l oral tablet 18:46: Daily, X [address] 06 day, # 5 tab, 0 Refill(s), Pharmacy: [facility] #[id number] Fluticasone 2018-06 Yes 1 spray, Me moria propionate 0-17 NASAL, l 0.05 18:45: BID, # [address] MG/ACTUAT 12 gm, 0 Metered Refill(s), Dose Nasal Pharmacy: [facility] #[id number] Fluticasone 2018-06 Yes 1 spray, Me moria propionate 0-17 NASAL, l 0.05 18:45: BID, # [address] MG/ACTUAT 12 gm, 0 Metered Refill(s), Dose Nasal Pharmacy: [facility] [[facility] #[id number] Fluticasone 2018-06 Yes 1 spray, Me moria propionate 0-17 NASAL, l 0.05 18:45: BID, # 16 Dariel MG/ACTUAT 12 gm, 0 Metered Refill(s), Dose Nasal Pharmacy: [facility] [[facility] #[id number] Fluticasone 2018-06 No 1 spray, Me moria propionate 0-17 NASAL, l 0.05 18:38: BID, # 16 Dariel MG/ACTUAT 00 gm, 0 Metered Refill(s), Dose Nasal Pharmacy: [facility] [[facility] #[id number] Acetaminoph 2018-06 No 325 mg = 1 Memoria en 325 MG 0-17 cap, PO, l Oral 18:38: TID, # 21 Dariel Capsule 00 cap, 0 [Tylenol] Refill(s), Pharmacy: [facility] #[id number] azAVIcodei 2018-06 No 500 mg = 1 Memoria n 500 mg 0-17 tab, PO, l oral tablet 18:38: Daily, X [address] 00 day, # 5 tab, 0 Refill(s), Pharmacy: [id number] Fluticasone 2018-06 No 1 spray, Me moria propionate 0-17 NASAL, l 0.05 18:38: BID, # [address] MG/ACTUAT 00 gm, 0 Metered Refill(s), Dose Nasal Pharmacy: [facility] [[facility]] [facility] #[id number] Acetaminoph 2018-06 No 325 mg = 1 Memoria en 325 MG 0-17 cap, PO, l Oral 18:38: TID, # [address] Capsule 00 cap, 0 [Tylenol] Refill(s), Pharmacy: [facility] #[id number] azithromyci 2018-06 No 500 mg = 1 Memoria n 500 mg 0-17 tab, PO, l oral tablet 18:38: Daily, X [address] 00 day, # 5 tab, 0 Refill(s), Pharmacy: [facility] #[id number] Fluticasone 2018-06 No 1 spray, Me moria propionate 0-17 NASAL, l 0.05 18:38: BID, # [address] MG/ACTUAT 00 gm, 0 Metered Refill(s), Dose Nasal Pharmacy: [place] [facility] [Flonase] #[id number] Acetaminoph 2018-06 No 325 mg = 1 Memoria en 325 MG 0-17 cap, PO, l Oral 18:38: TID, # [address] Capsule 00 cap, 0 [Tylenol] Refill(s), [id number] azithromyci 2018-06 No 500 mg = 1 Memoria n 500 mg 0-17 tab, PO, l oral tablet 18:38: Daily, X [address] 00 day, # 5 tab, 0 Refill(s), Pharmacy: [facility] #[id number] Levofloxaci Yes 500 mg = 1 Memoria n 500 MG 7-24 tab, PO, l Oral Tablet 13:38: Q24H, X 7 [place] [place] [Levaquin] 00 day, # 7 tab, 0 Refill(s), Pharmacy: [facility] #[id number] Levofloxaci Yes 500 mg = 1 Memoria n 500 MG 7-24 tab, PO, l Oral Tablet 13:38: Q24H, X 7 [place] [Levaquin] 00 day, # 7 tab, 0 Refill(s), Pharmacy: [facility] #[id number] Levofloxaci Yes 500 mg = 1 Memoria n 500 MG 7-24 tab, PO, l Oral Tablet 13:38: Q24H, X 7 [place] [Levaquin] 00 day, # 7 tab, 0 Refill(s), Pharmacy: [facility] #[id number] Levofloxaci No 500 mg = 1 Memoria n 500 MG 1-29 tab, PO, l Oral Tablet 14:52: Q24H, X 7 [place] [Levaquin] 00 day, # 7 tab, 0 Refill(s), Pharmacy: [facility] #[id number] Levofloxaci No 500 mg = 1 Memoria n 500 MG 1-29 tab, PO, l Oral Tablet 14:52: Q24H, X 7 [place] [Levaquin] 00 day, # 7 tab, 0 Refill(s), [id number] Levofloxaci No 500 mg = 1 Memoria n 500 MG 1-29 tab, PO, l Oral Tablet 14:52: Q24H, X 7 [place] [Levaquin] 00 day, # 7 tab, 0 Refill(s), [id number] Levofloxaci 2017-06 No 500 mg = 1 Memoria n 500 MG 0-18 tab, PO, l Oral Tablet 18:59: Q24H, X 10 [place] [Levaquin] 00 day, # 10 tab, 0 Refill(s), [id number] Levofloxaci 2017-06 No 500 mg = 1 Memoria n 500 MG 0-18 tab, PO, l Oral Tablet 18:59: Q24H, X 10 [place] [Levaquin] 00 day, # 10 tab, 0 Refill(s), [id number] Levofloxaci 2017-06 No 500 mg = 1 Memoria n 500 MG 0-18 tab, PO, l Oral Tablet 18:59: Q24H, X [address] [Levaquin] 00 day, # 10 tab, 0 Refill(s), [id number] Codeine No See Memoria Phosphate 2 9-25 Instructio l MG/ML / 21:35: ns, PRN [address] Guaifenesin 53 cough, 20 MG/ML 5-10 mL PO Oral Q6H prn Solution cough, # [Cheratussi 240 mL, 1 n] Refill(s) Codeine No See Memoria Phosphate 2 9-25 Instructio l MG/ML / 21:35: ns, PRN [address] Guaifenesin 53 cough, 20 MG/ML 5-10 mL PO Oral Q6H prn Solution cough, # [Cheratussi 240 mL, 1 n] Refill(s) Codeine No See Memoria Phosphate 2 9-25 Instructio l MG/ML / 21:35: ns, PRN Dariel Guaifenesin 53 cough, 20 MG/ML 5-10 mL PO Oral Q6H prn Solution cough, # [Cheratussi 240 mL, 1 n] Refill(s) valacyclovi 2017-0 No 1 gm = 1 Me moria r 1000 MG 9-25 tab, PO, l Oral Tablet 21:35: ONCE, # 1 [place] [Valtrex] 00 tab, 0 Refill(s), Pharmacy: [facility][id number] valacyclovi 2017-0 No 1 gm = 1 Me moria r 1000 MG 9-25 tab, PO, l Oral Tablet 21:35: ONCE, # 1 [place] [Valtrex] 00 tab, 0 Refill(s), Pharmacy: [facility][id number] valacyclovi 0 No 1 gm = 1 Me moria r 1000 MG 9-25 tab, PO, l Oral Tablet 21:35: ONCE, # 1 [place] [Valtrex] 00 tab, 0 Refill(s), Pharmacy: [facility] #[id number] Hydrocortis 0 No 1 appl, Mem oria one 25 9-05 TOP, BID, l MG/ML 20:06: X 14 day, [address] Topical 00 # 30 gm, 0 Cream Refill(s), Pharmacy: [facility][id number] Hydrocortis 0 No 1 appl, Mem oria one 25 9-05 TOP, BID, l MG/ML 20:06: X 14 day, [address] Topical 00 # 30 gm, 0 Cream Refill(s), Pharmacy: [facility][id number] Hydrocortis 0 No 1 appl, Mem oria one 25 9-05 TOP, BID, l MG/ML 20:06: X 14 day, [address] Topical 00 # 30 gm, 0 Cream Refill(s), Pharmacy: [facility] #[id number] baclofen 10 Yes See Memori a mg oral 4-16 Instructio l tablet 17:59: ns, # [address] 43 tab, TAKE 1 TABLET BY MOUTH 3 TIMES A DAY NEEDED FOR SPASMS, Pharmacy: [facility] #[id number] baclofen 10 Yes See Memori a mg oral 4-16 Instructio l tablet 17:59: ns, # 90 [place] 43 tab, TAKE 1 TABLET BY MOUTH 3 TIMES A DAY NEEDED FOR SPASMS, Pharmacy: [facility] #[id number] baclofen 10 Yes See Memori a mg oral 4-16 Instructio l tablet 17:59: ns, # 90 [place] 43 tab, TAKE 1 TABLET BY MOUTH 3 TIMES A DAY NEEDED FOR SPASMS, [id number] baclofen 10 No See Memori a mg oral 3-13 Instructio l tablet 19:36: ns, # [address] 08 tab, TAKE 1 TABLET BY MOUTH 3 TIMES A DAY NEEDED FOR SPASMS, [id number] baclofen 10 No See Memori a mg oral 3-13 Instructio l tablet 19:36: ns, # 90 [place] 08 tab, TAKE 1 TABLET BY MOUTH 3 TIMES A DAY NEEDED FOR SPASMS, [id number] baclofen 10 No See Memori a mg oral 3-13 Instructio l tablet 19:36: ns, # 90 [place] 08 tab, TAKE 1 TABLET BY MOUTH 3 TIMES A DAY NEEDED FOR SPASMS, [id number] tramadol 0 No 50 mg = 1 Vasile roberto hydrochlori 2-23 tab, PO, l de 50 MG 20:52: BID, X 10 [place] Oral Tablet 00 day, # 10 tab, 0 Refill(s) tramadol 0 No 50 mg = 1 Vasile roberto hydrochlori 2-23 tab, PO, l de 50 MG 20:52: BID, X 10 [facility] Oral Tablet 00 day, # 10 tab, 0 Refill(s) tramadol 0 No 50 mg = 1 Vasile roberto hydrochlori 2-23 tab, PO, l de 50 MG 20:52: BID, X 10 [facility] Oral Tablet 00 day, # 10 tab, 0 Refill(s) baclofen 10 No 10 mg = 1 M emoria mg oral 2-14 tab, PO, l tablet 20:01: TID, PRN [place]iel 00 Spasms, # 90 tab, 0 Refill(s), [id number] baclofen 10 No 10 mg = 1 M emoria mg oral 2-14 tab, PO, l tablet 20:01: TID, PRN [place] 00 Spasms, # 90 tab, 0 Refill(s), Pharmacy: [facility] #[id number] baclofen 10 No 10 mg = 1 M emoria mg oral 2-14 tab, PO, l tablet 20:01: TID, PRN [address] 00 Spasms, # 90 tab, 0 Refill(s), Pharmacy: [facility] #[id number] Triamcinolo Yes See Memori a ne 1-18 Instructio l Acetonide 1 15:48: ns, apply H [place] MG/ML 00 small Topical amount to Cream affected area twice/day until symptoms resolved., # 60 gm, 1 Refill(s), Pharmacy: [facility] #[id number] Triamcinolo Yes See Memori a ne 1-18 Instructio l Acetonide 1 15:48: ns, apply H ermann MG/ML 00 small Topical amount to Cream affected area twice/day until symptoms resolved., # 60 gm, 1 Refill(s), Pharmacy: [facility] #[id number] Triamcinolo Yes See Memori a ne 1-18 Instructio l Acetonide 1 15:48: ns, apply H ermann MG/ML 00 small Topical amount to Cream affected area twice/day until symptoms resolved., # 60 gm, 1 Refill(s), Pharmacy: [facility] #[id number] atorvastati No 20 mg = 1 M emoria n 20 mg 1-11 tab, PO, l oral tablet 19:41: Daily, # He rmann 00 90 tab, 0 Refill(s), Pharmacy: [facility] #[id number] atorvastati No 20 mg = 1 M emoria n 20 mg 1-11 tab, PO, l oral tablet 19:41: Daily, # He rmann 00 90 tab, 0 Refill(s), Pharmacy: [facility] #[id number] atorvastati No 20 mg = 1 M emoria n 20 mg 1-11 tab, PO, l oral tablet 19:41: Daily, # He rmann 00 90 tab, 0 Refill(s), Pharmacy: [facility] #[id number] atorvastati Yes 20 mg = 1 M emoria n 20 mg 1-11 tab, PO, l oral tablet 19:40: Daily, # He rmann 15 90 tab, 5 Refill(s), Pharmacy: [facility] #[id number] atorvastati 2018-0 Yes 20 mg = 1 M emoria n 20 mg 1-11 tab, PO, l oral tablet 19:40: Daily, # He rmann 15 90 tab, 5 Refill(s), Pharmacy: [facility] #[id number] atorvastati 2018-0 Yes 20 mg = 1 M emoria n 20 mg 1-11 tab, PO, l oral tablet 19:40: Daily, # He rmann 15 90 tab, 5 Refill(s), Pharmacy: [facility] #[id number] amLODIPine 2018-0 Yes See Memoria 5 mg oral 1-04 Instructio l tablet 18:47: ns, TAKE 1 Jodi nn 05 TABLET BY MOUTH DAILY, # 90 tab, 1 Refill(s), Pharmacy: [facility] #[id number] amLODIPine 2018-0 Yes See Memoria 5 mg oral 1-04 Instructio l tablet 18:47: ns, TAKE 1 Jodi nn 05 TABLET BY MOUTH DAILY, # 90 tab, 1 Refill(s), Pharmacy: [facility] #[id number] amLODIPine 2018-0 Yes See Memoria 5 mg oral 1-04 Instructio l tablet 18:47: ns, TAKE 1 Jodi nn 05 TABLET BY MOUTH DAILY, # 90 tab, 1 Refill(s), Pharmacy: [facility] #[id number] levofloxaci 2018-0 Yes 500 mg = 1 Memoria n 500 mg 1-04 tab, PO, l oral tablet 14:44: Daily, X He rmann 00 10 day, # 10 tab, 0 Refill(s), [id number] [place] Zithromax order levofloxaci 2018-0 Yes 500 mg = 1 Memoria n 500 mg 1-04 tab, PO, l oral tablet 14:44: Daily, X He rmann 00 10 day, # 10 tab, 0 Refill(s), Pharmacy: [facility] #[id number], [place] the Zithromax order levofloxaci 2018-0 Yes 500 mg = 1 Memoria n 500 mg 1-04 tab, PO, l oral tablet 14:44: Daily, X [place] r[place] 00 10 day, # 10 tab, 0 Refill(s), Pharmacy: [facility] #[id number], [place] the Zithromax order Codeine Yes See Memoria Phosphate 2 1-04 Instructio l MG/ML / 14:40: ns, PRN [address] Guaifenesin 00 cough, 20 MG/ML 5-10 mL PO Oral Q6H prn Solution cough, # [Cheratussi 240 mL, 1 n] Refill(s) Codeine Yes See Memoria Phosphate 2 1-04 Instructio l MG/ML / 14:40: ns, PRN Dariel Guaifenesin 00 cough, 20 MG/ML 5-10 mL PO Oral Q6H prn Solution cough, # [Cheratussi 240 mL, 1 n] Refill(s) Codeine Yes See Memoria Phosphate 2 1-04 Instructio l MG/ML / 14:40: ns, PRN [address] Guaifenesin 00 cough, 20 MG/ML 5-10 mL [...] day, # 6 tab, 0 Refill(s), Pharmacy: [facility] #[id number] {6 No See Memoria (Azithromyc 1-04 Instructio l in 250 MG 14:39: ns, Take 2 He rmann Oral Tablet 00 tablets by [Zithromax] mouth the ) } Pack first day [Z-PAKS] then 1 tablet by mouth days 2-5., X 5 day, # 6 tab, 0 Refill(s), Pharmacy: [facility] #[id number] {6 No See Memoria (Azithromyc 1-04 Instructio l in 250 MG 14:39: ns, Take 2 [facility] r[place] Oral Tablet 00 tablets by [Zithromax] mouth the ) } Pack first day [Z-PAKS] then 1 tablet by mouth days 2-5., X 5 day, # 6 tab, 0 Refill(s), Pharmacy: [facility] #[id number] Immunizations Ordered Filled Immunization Date Status Comments [facility] e Immunization Name Name SARS-COV-2 COVID-19 2021-03-29 Completed [facility] PFIZER VACCINE 00:00:00 [facility] SARS-COV-2 COVID-19 2021-03-29 Completed [facility]ive rs[facility] of PFIZER VACCINE 00:00:00 [facility] SARS-COV-2 COVID-19 2021-03-29 Completed [facility]ive [facility] of PFIZER VACCINE 00:00:00 [facility] SARS-COV-2 COVID-19 2020-08-23 Completed [facility] of PFIZER VACCINE 00:00:00 [facility] SARS-COV-2 COVID-19 2020-08-23 Completed [facility] of PFIZER VACCINE 00:00:00 [facility] SARS-COV-2 COVID-19 2020-08-23 Completed [facility] of PFIZER VACCINE 00:00:00 [facility] SARS-COV-2 COVID-19 2020-08-23 Completed [facility] of PFIZER VACCINE 00:00:00 [facility] SARS-COV-2 COVID-19 2020-08-23 Completed [facility] of PFIZER VACCINE 00:00:00 [facility] SARS-COV-2 COVID-19 2020-08-23 Completed [facility] of PFIZER VACCINE 00:00:00 [facility] SARS-COV-2 COVID-19 2020-08-02 Completed [facility] of PFIZER VACCINE 00:00:00 [facility] SARS-COV-2 COVID-19 2020-08-02 Completed [facility] of PFIZER VACCINE 00:00:00 [facility] SARS-COV-2 COVID-19 2020-08-02 Completed [facility] of PFIZER VACCINE 00:00:00 [facility] SARS-COV-2 COVID-19 2020-08-02 Completed [facility] of PFIZER VACCINE 00:00:00 [facility] SARS-COV-2 COVID-19 2020-08-02 Completed [facility] of PFIZER VACCINE 00:00:00 [facility] SARS-COV-2 COVID-19 2020-08-02 Completed [facility] of PFIZER VACCINE 00:00:00 [facility] influenza virus 2019-02-[address] vaccine, 15:54:00 inactivated influenza virus 2019-02-[address] vaccine, 15:54:00 inactivated influenza virus 2019-02-[address] vaccine, 15:54:00 inactivated pneumococcal 2018-03-05 Completed [facility] 13-valent vaccine 21:02:00 pneumococcal 2018-03-05 Completed [facility] 13-valent vaccine 21:02:00 pneumococcal 2018-03-05 Completed [facility] 13-valent vaccine 21:02:00 influenza virus 2018-03-05 Completed [facility] vaccine, 21:01:00 inactivated influenza virus 2018-03-[address] vaccine, 21:01:00 inactivated influenza virus 2018-03-[address] vaccine, 21:01:00 inactivated influenza virus 2017-04-[address] vaccine, 16:16:00 inactivated influenza virus 2017-04-27 Completed [facility] vaccine, 16:16:00 inactivated influenza virus 2017-04-27 Completed [facility] vaccine, 16:16:00 inactivated influenza virus 2016-02-[address] vaccine, 18:11:00 inactivated influenza virus 2016-02-[address] vaccine, 18:11:00 inactivated influenza virus 2016-02-[address] vaccine, 18:11:00 inactivated influenza virus 2015-04-21 Completed [facility] vaccine, 22:30:00 inactivated influenza virus 2015-04-21 Completed [facility] vaccine, 22:30:00 inactivated influenza virus 2015-04-[address] vaccine, 22:30:00 inactivated diphtheria/pertussi 2014-04-23 Completed [facility] iagladys Vie[facility] s, acel/tetanus 06:00:00 adult<sup>3</sup> influenza virus 2014-04-23 Completed [facility] vaccine, 06:00:00 inactivated<sup>1</ sup> diphtheria/pertussi 2014-04-23 Completed [facility] iagladys [facility]ie[facility] s, acel/tetanus 06:00:00 adult<sup>1</sup> influenza virus 2014-04-23 Completed [facility] vaccine, 06:00:00 inactivated<sup>3</ sup> influenza virus 2014-04-[address] vaccine, 06:00:00 inactivated<sup>1</ sup> diphtheria/pertussi 2014-04-23 Completed Memor ial Dariel s, acel/tetanus 06:00:00 adult<sup>3</sup> diphtheria/pertussi 2014-04-[address], acel/tetanus 06:00:00 adult<sup>1</sup> influenza virus 2014-04-23 Completed [facility] vaccine, 06:00:00 inactivated<sup>3</ sup> diphtheria/pertussi 2014-04-23 Completed Memor ial [place]iel s, acel/tetanus 06:00:00 adult<sup>3</sup> influenza virus 2014-04-23 Completed [facility] vaccine, 06:00:00 inactivated<sup>1</ sup> diphtheria/pertussi 2014-04-23 Completed Memor ial Dariel s, acel/tetanus 06:00:00 adult<sup>1</sup> influenza virus 2014-04-[address] vaccine, 06:00:00 inactivated<sup>3</ sup> Hx influenza 2013-04-24 [...] 15:42:20 <sup>2</sup> influenza virus 2013-04-[address] vaccine, 06:00:00 inactivated<sup>2</ sup> influenza virus 2013-04-[address] vaccine, 06:00:00 inactivated<sup>4</ sup> influenza virus 2013-04-24 Completed [facility] vaccine, 06:00:00 inactivated<sup>2</ sup> influenza virus 2013-04-[address] vaccine, 06:00:00 inactivated<sup>4</ sup> influenza virus 2013-04-[address] vaccine, 06:00:00 inactivated<sup>2</ sup> influenza virus 2013-04-24 Completed [facility] vaccine, 06:00:00 inactivated<sup>4</ sup> zoster vaccine 2012-09-18 Completed [facility] live<sup>5</sup> 19:50:44 zoster vaccine 2012-09-18 Completed [facility] live<sup>6</sup> 19:50:44 zoster vaccine 2012-09-18 Completed [facility] live<sup>5</sup> 19:50:44 zoster vaccine 2012-09-18 Completed [facility] live<sup>6</sup> 19:50:44 zoster vaccine 2012-09-18 Completed [facility] live<sup>5</sup> 19:50:44 zoster vaccine 2012-09-18 Completed [facility] live<sup>6</sup> 19:50:44 pneumococcal 2012-04-17 Completed [facility] 23-valent 15:36:31 vaccine<sup>6</sup> pneumococcal 2012-04-17 Completed [facility] 23-valent 15:36:31 vaccine<sup>5</sup> pneumococcal 2012-04-17 Completed [facility] 23-valent 15:36:31 vaccine<sup>6</sup> pneumococcal 2012-04-17 Completed [facility] 23-valent 15:36:31 vaccine<sup>5</sup> pneumococcal 2012-04-17 Completed [facility] 23-valent 15:36:31 vaccine<sup>6</sup> pneumococcal 2012-04-17 Completed [facility] 23-valent 15:36:31 vaccine<sup>5</sup> Vital Signs Vital Name Observation Time Observation Value Comments Source HEIGHT 2019-12-29 00:00:00 165.1 cm WEIGHT 2019-12-29 00:00:00 77.7 kg Body height 2022-02-27 14:03:00 165.1 cm [facility] Body weight 2022-02-27 14:03:00 74.844 kg [facility] BMI 2022-02-27 14:03:00 27.46 kg/m2 [facility] Body weight 2020-04-26 15:28:00 73.483 kg [facility] [place] [facility] BMI 2020-04-26 15:28:00 26.96 kg/m2 [facility] [place] [facility] Systolic blood 2020-04-26 15:28:00 172 mm[Hg] [facility] Diastolic blood 2020-04-26 15:28:00 73 mm[Hg] [facility] Heart rate 2020-04-26 15:28:00 72 /min [facility] [place] [facility] Body height 2020-04-26 15:28:00 165.1 cm [facility] Body weight 2020-04-26 15:28:00 73.483 kg [facility] BMI 2020-04-26 15:28:00 26.96 kg/m2 [facility] [place] [facility] Systolic blood 2020-04-26 15:28:00 172 mm[Hg] [facility] Diastolic blood 2020-04-26 15:28:00 73 mm[Hg] [facility] Heart rate 2020-04-26 15:28:00 72 /min [facility] Body height 2020-04-26 15:28:00 165.1 cm [facility] Body height 2020-02-26 15:24:00 165.1 cm [facility] [place] [facility] Body weight 2020-02-26 15:24:00 73.483 kg [facility] BMI 2020-02-26 15:24:00 26.96 kg/m2 [facility] [place] [facility] Body height 2020-02-26 15:24:00 165.1 cm [facility] Body weight 2020-02-26 15:24:00 73.483 kg [facility] [place] [facility] BMI 2020-02-26 15:24:00 26.96 kg/m2 [facility] [place] [facility] Body height 2020-01-29 15:25:00 165.1 cm [facility] [place] [facility] Body weight 2020-01-29 15:25:00 73.483 kg [facility] [place] [facility] BMI 2020-01-29 15:25:00 26.96 kg/m2 [facility] [place] [facility] Body height 2020-01-29 15:25:00 165.1 cm [facility] Body weight 2020-01-29 15:25:00 73.483 kg [facility] [place] [facility] BMI 2020-01-29 15:25:00 26.96 kg/m2 [facility] HEIGHT 2019-12-29 00:00:00 165.1 cm WEIGHT 2019-12-29 00:00:00 77.7 kg Body height 2019-12-29 14:22:00 165.1 cm [facility] Body weight 2019-12-29 14:22:00 73.483 kg [facility] BMI 2019-12-29 14:22:00 26.96 kg/m2 [facility] [place] [facility] Body height 2019-12-29 14:22:00 165.1 cm [facility] [place] [facility] Body weight 2019-12-29 14:22:00 73.483 kg [facility] [place] [facility] BMI 2019-12-29 14:22:00 26.96 kg/m2 [facility] Height 2019-10-01 15:14:00 160.02 cm [facility] Weight 2019-10-01 15:14:00 [facility] BMI Calculated 2019-10-01 15:14:[address] Systolic (mm Hg) 2019-10-01 15:14:[address] Diastolic (mm Hg) 2019-10-01 15:14:00 Mem o[facility] Heart Rate 2019-10-01 15:14:[address] Respitory Rate 2019-10-01 15:14:[address] Temperature Oral (F) 2019-10-01 15:14:00 97.8 F [facility] Systolic (mm Hg) 2019-08-14 15:17:[address] Diastolic (mm Hg) 2019-08-14 15:17:[address] Heart Rate 2019-08-14 15:17:[address] Weight 2019-08-14 15:17:[address] Height 2019-07-22 22:18:00 160.02 cm [facility] Weight 2019-07-22 22:18:00 [facility] BMI Calculated 2019-07-22 22:18:00 Memori al [place] Systolic (mm Hg) 2019-07-22 22:18:[address] Diastolic (mm Hg) 2019-07-22 22:18:[address] Heart Rate 2019-07-22 22:18:00 [facility] Temperature Oral (F) 2019-07-22 22:18:[address] Systolic (mm Hg) 2019-06-17 19:58:[address] Diastolic (mm Hg) 2019-06-17 19:58:[address] Heart Rate 2019-06-17 19:58:[address] Respitory Rate 2019-06-17 19:58:00 Memori [facility] [place] Height 2019-06-17 19:58:[address] Weight 2019-06-17 19:58:[address] BMI Calculated 2019-06-17 19:58:00 [facility] [place] Height 2019-05-16 16:27:00 160.02 cm [facility] Weight 2019-05-16 16:27:[address] BMI Calculated 2019-05-16 16:27:00 [facility] [place] Systolic (mm Hg) 2019-05-16 16:27:00 Vasile rial [facility] Diastolic (mm Hg) 2019-05-16 16:27:00 Mem [facility] Heart Rate 2019-05-16 16:27:[address] Temperature Oral (F) 2019-05-16 16:27:00 97.9 F [facility] Height 2019-04-02 14:23:00 160.02 cm [facility] Systolic (mm Hg) 2019-04-02 14:23:[address] Diastolic (mm Hg) 2019-04-02 14:23:[address] Heart Rate 2019-04-02 14:23:[address] Respitory Rate 2019-04-02 14:23:00 [facility] [place] Temperature Oral (F) 2019-04-02 14:23:00 98.1 F [facility] Weight 2019-04-02 14:23:00 [facility] BMI Calculated 2019-04-02 14:23:00 [facility] [place] Systolic (mm Hg) 2019-03-27 18:17:00 Vasile rial [place] Diastolic (mm Hg) 2019-03-27 18:17:00 [facility] Heart Rate 2019-03-27 18:17:00 [facility] Respitory Rate 2019-03-27 18:17:00 [facility] [place] Temperature Oral (F) 2019-03-27 18:17:[address] Height 2019-03-27 18:17:00 165.1 cm [facility] Weight 2019-03-27 18:17:00 [facility] BMI Calculated 2019-03-27 18:17:[address] Systolic (mm Hg) 2019-02-27 14:53:00 Vasile rial [place] Diastolic (mm Hg) 2019-02-27 14:53:[address] Heart Rate 2019-02-27 14:53:[address] Weight 2019-02-27 14:53:00 [facility] Systolic (mm Hg) 2019-01-01 13:09:00 Vasile rial [place] Diastolic (mm Hg) 2019-01-01 13:09:00 [facility] [place] Temperature Oral (F) 2019-01-01 13:09:00 98.0 F [facility] Heart Rate 2019-01-01 13:09:[address] Weight 2019-01-01 13:09:[address] BMI Calculated 2018-11-15 14:02:00 [facility] Weight 2018-11-15 14:02:[address] Systolic (mm Hg) 2018-11-15 14:02:[address] Diastolic (mm Hg) 2018-11-15 14:02:00 [facility] [place] Temperature Oral (F) 2018-11-15 14:02:[address] Heart Rate 2018-11-15 14:02:[address] Height 2018-11-15 14:02:[address] BMI Calculated 2018-09-23 15:26:00 [facility] Weight 2018-09-23 15:26:00 [facility] Height 2018-09-23 15:26:00 160.02 cm [facility] Temperature Oral (F) 2018-09-23 15:26:[address] Heart Rate 2018-09-23 15:26:[address] Respitory Rate 2018-09-23 15:26:00 [facility] [place] Systolic (mm Hg) 2018-09-23 15:26:[address] Diastolic (mm Hg) 2018-09-23 15:26:[address] Weight 2018-09-10 21:14:[address] Temperature Oral (F) 2018-09-10 21:14:00 97.6 F [facility] Respitory Rate 2018-09-10 21:14:[address] Heart Rate 2018-09-10 21:14:[address] Systolic (mm Hg) 2018-09-10 21:14:00 [facility] Diastolic (mm Hg) 2018-09-10 21:14:[address] Height 2018-08-01 14:26:00 160.02 cm [facility] Weight 2018-08-01 14:26:00 [facility] BMI Calculated 2018-08-01 14:26:00 [facility] Respitory Rate 2018-08-01 14:26:00 [facility] Heart Rate 2018-08-01 14:26:[address] Systolic (mm Hg) 2018-08-01 14:26:00 [facility] Diastolic (mm Hg) 2018-08-01 14:26:[address] Systolic (mm Hg) 2018-07-09 14:06:[address] Diastolic (mm Hg) 2018-07-09 14:06:[address] Heart Rate 2018-07-09 14:06:00 [facility] Temperature Oral (F) 2018-07-09 14:06:00 98.4 F [facility] Weight 2018-07-09 14:06:[address] Systolic (mm Hg) 2018-07-08 16:29:00 [facility] Diastolic (mm Hg) 2018-07-08 16:29:00 [facility] Heart Rate 2018-07-08 16:29:[address] Height 2018-07-08 16:29:00 165.1 cm [facility] Weight 2018-07-08 16:29:[address] BMI Calculated 2018-07-08 16:29:00 [facility] Weight 2018-05-16 15:56:00 [facility] Respitory Rate 2018-05-16 15:56:00 [facility] Temperature Oral (F) 2018-05-16 15:56:00 98.2 F [facility] Heart Rate 2018-05-16 15:56:[address] Systolic (mm Hg) 2018-05-16 15:56:00 [facility] Diastolic (mm Hg) 2018-05-16 15:56:00 [facility] BMI Calculated 2018-03-28 18:21:00 [facility] Weight 2018-03-28 18:21:[address] Height 2018-03-28 18:21:[address] Heart Rate 2018-03-28 18:21:00 [facility] Temperature Oral (F) 2018-03-28 18:21:[address] Systolic (mm Hg) 2018-03-28 18:21:[address] Diastolic (mm Hg) 2018-03-28 18:21:[address] Weight 2018-03-25 14:36:[address] BMI Calculated 2018-03-25 14:36:[address] Height 2018-03-25 14:36:[address] Temperature Oral (F) 2018-03-25 14:36:00 97.8 F [facility] Heart Rate 2018-03-25 14:36:00 [facility] Respitory Rate 2018-03-25 14:36:00 [facility] Systolic (mm Hg) 2018-03-25 14:36:[address] Diastolic (mm Hg) 2018-03-25 14:36:00 [facility] BMI Calculated 2018-03-08 14:35:00 [facility] Weight 2018-03-08 14:35:[address] Heart Rate 2018-03-08 14:35:[address] Temperature Oral (F) 2018-03-08 14:35:[address] Systolic (mm Hg) 2018-03-08 14:35:[address] Diastolic (mm Hg) 2018-03-08 14:35:[address] Height 2018-03-08 14:35:[address] Weight 2018-03-05 20:47:[address] Systolic (mm Hg) 2018-03-05 20:47:[address] Diastolic (mm Hg) 2018-03-05 20:47:[address] Heart Rate 2018-03-05 20:47:00 [facility] Temperature Oral (F) 2018-03-05 20:47:[address] Respitory Rate 2018-03-05 20:47:00 [facility] Height 2018-02-13 19:12:[address] Temperature Oral (F) 2018-02-13 19:12:[address] Heart Rate 2018-02-13 19:12:00 [facility] Respitory Rate 2018-02-13 19:12:00 [facility] Systolic (mm Hg) 2018-02-13 19:12:00 [facility] Diastolic (mm Hg) 2018-02-13 19:12:00 [facility] Weight 2018-02-13 19:12:[address] BMI Calculated 2018-02-13 19:12:[address] Weight 2017-10-31 16:55:00 [facility] Height 2017-10-31 16:55:00 165.1 cm [facility] BMI Calculated 2017-10-31 16:55:[address] Heart Rate 2017-10-31 16:55:[address] Temperature Oral (F) 2017-10-31 16:55:[address] Systolic (mm Hg) 2017-10-31 16:55:00 [facility] Diastolic (mm Hg) 2017-10-31 16:55:00 [facility] BMI Calculated 2017-09-19 14:28:[address] Weight 2017-09-19 14:28:[address] Height 2017-09-19 14:28:00 162.56 cm [facility] Systolic (mm Hg) 2017-09-19 14:28:00 [facility] Diastolic (mm Hg) 2017-09-19 14:28:[address] Respitory Rate 2017-09-19 14:28:00 [facility] Heart Rate 2017-09-19 14:28:00 [facility] Temperature Oral (F) 2017-09-19 14:28:[address] Weight 2017-08-28 20:25:[address] Heart Rate 2017-08-28 20:25:00 [facility] Systolic (mm Hg) 2017-08-28 20:25:00 [facility] Diastolic (mm Hg) 2017-08-28 20:25:00 [facility] Systolic (mm Hg) 2017-08-28 19:58:00 [facility] Diastolic (mm Hg) 2017-08-28 19:58:[address] Heart Rate 2017-08-28 19:58:00 [facility] Weight 2017-08-28 19:58:00 [facility] Weight 2017-08-03 20:19:[address] Temperature Oral (F) 2017-08-03 20:19:00 97.9 F [facility] Systolic (mm Hg) 2017-08-03 20:19:[address] Diastolic (mm Hg) 2017-08-03 20:19:00 [facility] Heart Rate 2017-08-03 20:19:[address] Temperature Oral (F) 2017-07-25 19:39:00 97.4 F [facility] Systolic (mm Hg) 2017-07-25 19:39:00 [facility] Diastolic (mm Hg) 2017-07-25 19:39:00 [facility] Heart Rate 2017-07-25 19:39:00 [facility] Weight 2017-07-25 19:39:[address] Height 2017-06-28 15:25:[address] Weight 2017-06-28 15:25:[address] BMI Calculated 2017-06-28 15:25:00 [facility] Heart Rate 2017-06-28 15:25:00 [facility] Systolic (mm Hg) 2017-06-28 15:25:00 [facility] Diastolic (mm Hg) 2017-06-28 15:25:00 [facility] Temperature Oral (F) 2017-06-14 14:26:00 97.8 F [facility] Weight 2017-06-14 14:26:00 [facility] Systolic (mm Hg) 2017-06-14 14:26:00 [facility] Diastolic (mm Hg) 2017-06-14 14:26:[address] Heart Rate 2017-06-14 14:26:00 [facility] Weight 2017-04-27 15:20:[address] [facility] [address] Height 2017-04-27 15:20:00 163.83 cm [facility] BMI Calculated 2017-04-27 15:20:00 [facility] Systolic (mm Hg) 2017-04-27 15:20:00 [facility] Diastolic (mm Hg) 2017-04-27 15:20:00 [facility] Temperature Oral (F) 2017-04-27 15:20:00 98.5 F [facility] Heart Rate 2017-04-27 15:20:00 [facility] Respitory Rate 2017-04-27 15:20:[address] Procedures Procedure Date / Time Performing Clinician Source Performed SARS-COV-2 COVID-19 2021-03-29 20:09:48 Doctor Unassigned, [facility] [place] VACCINE,0.3ML,IM Name [facility] (Zuu Onlnine) Mammogram 2018-07-08 06:00:00 [facility] Her hawk Cataract surgery 2018-06-24 06:00:00 [facility] Jared rmann Removal impacted 2018-03-08 15:45:00 [facility] Jared salmonann cerumen requiring instrumentation, unilateral Colonoscopy<sup>1</sup> 2016-07-19 06:00:[address] Procedure on 2013-10-09 05:00:00 [facility] Her hawk wrist<sup>2</sup> Colonoscopy 2012-12-18 05:00:00 [facility] Her hawk CEIOL - Cataract 2011-02-13 05:00:00 [facility] rmann extraction and insertion of intraocular lens<sup>3</sup> Arthroscopy of 2010-06-11 00:00:00 [facility] Her hawk knee<sup>4</sup> CRIS BSO - Total 2000-06-11 00:00:00 [facility] Her hawk abdominal hysterectomy and bilateral salpingo-oophorectomy<s up>5</sup> Bunionectomy<sup>6</sup [facility] > Rotator cuff [facility] [address] repair<sup>8</sup> Pneumococcal [facility] vaccination<sup>7</sup> Simple dental [facility] [address] extraction<sup>9</sup> Plan of Care Planned Activity Planned Date Details Comments Source Future Scheduled 2023-02-[address] [facility] Test 00:00:00 (Season Ended) [code Medical Center = INFLUENZA VACCINE (Season Ended)] Future Scheduled 2022-06-[address] [facility] Test 00:00:00 (12+) [code = Medical Center DEPRESSION SCREENING (12+)] Future Scheduled 2022-06-11 FALLS RISK SCREENING [facility] Test 00:00:00 [code = FALLS RISK Medical C enter SCREENING] Future Scheduled 2022-06-[address] [facility] Test 00:00:00 (12+) [code = Medical Center DEPRESSION SCREENING (12+)] Future Scheduled 2022-06-11 FALLS RISK SCREENING [facility] Test 00:00:00 [code = FALLS RISK Medical C enter SCREENING] Future Scheduled 2022-02-27 TETANUS SHOT (ADULT) [employer] Test 09:12:20 [code = TETANUS SHOT of Medi cine (ADULT)] Future Scheduled 2022-02-27 BMI FOLLOW UP PLAN [employer] [facility] 09:12:20 [code = BMI FOLLOW of Medici ne UP PLAN] Future Scheduled 2022-02-27 ZOSTER VACCINE (1 of [employer] Test 09:12:20 2) [code = ZOSTER of Medicin e VACCINE (1 of 2)] Future Scheduled 2022-02-27 Screening for [facility] [place] [employer] Test 09:12:20 osteoporosis of Medicine (procedure) [code = 552988759] Future Scheduled 2022-02-27 Pneumococcal 65+ (1 [employer] Test 09:12:20 - PCV) [code = of Medicine Pneumococcal 65+ (1 - PCV)] Future Scheduled 2022-02-27 MEDICARE AWV [employer] Test 09:12:20 (Initial) [code = [...] Cessation Counseling and Screening (12+)] Future Scheduled 2021-01-[address] [facility] Test 00:00:00 Counseling and Medical Cente r Screening (12+) [code = Tobacco Cessation Counseling and Screening (12+)] Future Scheduled 2019-06-[address] [facility] 00:00:00 WELLNESS (YEAR 2 or Medical Center FIRST YEAR if no IPPE) [code = MEDICARE ANNUAL WELLNESS (YEAR 2 or FIRST YEAR if no IPPE)] Future Scheduled 2019-06-[address] [facility] 00:00:00 WELLNESS (YEAR 2 or Medical Center FIRST YEAR if no IPPE) [code = MEDICARE ANNUAL WELLNESS (YEAR 2 or FIRST YEAR if no IPPE)] Future Scheduled 2004-08-29 PNEUMOCOCCAL 65+ YRS [facility] Test 00:00:00 (1 - PCV) [code = Medical Ce nter PNEUMOCOCCAL 65+ YRS (1 - PCV)] Future Scheduled 2004-08-29 PNEUMOCOCCAL 65+ YRS [facility] Test 00:00:00 (1 - PCV) [code = Medical Ce nter PNEUMOCOCCAL 65+ YRS (1 - PCV)] Future Scheduled 1989-08-29 SHINGLES VACCINES ([address] [facility] Test 00:00:00 of 2) [code = Medical Center SHINGLES VACCINES (1 of 2)] Future Scheduled 1989-08-29 SHINGLES VACCINES ([address] [facility] Test 00:00:00 of 2) [code = [facility] SHINGLES VACCINES (1 of 2)] Future Scheduled 1958-08-29 DTAP/TDAP/TD [facility] 00:[facility] VACCINES (1 - Tdap) Medical Center [code = DTAP/TDAP/TD VACCINES (1 - Tdap)] Future Scheduled 1958-08-29 DTAP/TDAP/TD [facility] 00:00:00 VACCINES (1 - Tdap) Medical Center [code = DTAP/TDAP/TD VACCINES (1 - Tdap)] Future Scheduled 1940-03-01 COVID-[address] [facility] Test 00:00:00 (#1) [code = Medical Center COVID-19 VACCINE (#1)] Future Scheduled 1940-03-01 COVID-[address] [facility] Test 00:00:00 (#1) [code = Medical Center COVID-19 VACCINE (#1)] Future Scheduled 1939 DXA SCAN [code = DXA [facility] Test 00:00:00 SCAN] [facility] Future Scheduled 1939 DXA SCAN [code = DXA [facility] Test 00:00:00 SCAN] [facility] Future Scheduled ORT - XR KNEE RIGHT Ordered: [employer] [facility] 4V (CHARGE ONLY) 04/26/2020 of Medicine [code = 77207] Future Scheduled TETANUS SHOT (ADULT) [employer] [facility] [code = TETANUS SHOT of Medi cine (ADULT)] Future Scheduled BMI FOLLOW UP PLAN [employer] [facility] [code = BMI FOLLOW of Medici ne UP PLAN] Future Scheduled ZOSTER VACCINE (1 of [employer] Test 2) [code = ZOSTER of Medicin e VACCINE (1 of 2)] Future Scheduled OSTEOPOROSIS [facility] [place] [employer] Test SCREENING [code = of Medicin e OSTEOPOROSIS SCREENING] Future Scheduled PNEUMOVAX >=65 [facility] [place] [employer] Test (PPSV23) [code = of Medicine PNEUMOVAX >=65 (PPSV23)] Future Scheduled MEDICARE AWV [facility] [place] [employer] Test (Initial) [code = of Medicin e MEDICARE AWV (Initial)] Future Scheduled FALL SCREEN [code = [employer] FALL SCREEN] of Medicine Future Scheduled ORT - XR KNEE RIGHT Ordered: [employer] [facility] 4V (CHARGE ONLY) 12/29/2019 of Medicine [code = 48582] Future Scheduled C-REACTIVE PROTEIN Ordered: [employer] Test [code = 1988-5] 12/29/2019 of Medicine Future Scheduled SEDIMENTATION RATE Ordered: [employer] [facility] MODIFIED WESTERGREN 12/29/2019 of Medic ine [code = 4537-7] Future Scheduled TETANUS SHOT (ADULT) [employer] Test [code = TETANUS SHOT of Medi cine (ADULT)] Future Scheduled BMI FOLLOW UP PLAN [employer] [facility] [code = BMI FOLLOW of Medici ne UP PLAN] Future Scheduled OSTEOPOROSIS [facility] [place] [employer] Test SCREENING [code = of Medicin e OSTEOPOROSIS SCREENING] Future Scheduled PNEUMOVAX >=65 [facility] [place] [employer] Test (PPSV23) [code = of Medicine PNEUMOVAX >=65 (PPSV23)] Future Scheduled MEDICARE AWV [facility] [place] [employer] Test (Initial) [code = of Medicin e MEDICARE AWV (Initial)] Future Scheduled FLU VACCINE > 6 [facility] [place] [facility] [employer] Test MONTHS [code = FLU of Medici ne VACCINE > 6 MONTHS] Future Scheduled FALL SCREEN [code = [employer] FALL SCREEN] of Medicine Future Scheduled TETANUS SHOT (ADULT) [employer] Test [code = TETANUS SHOT of Medi cine (ADULT)] Future Scheduled BMI FOLLOW UP PLAN [employer] [facility] [code = BMI FOLLOW of Medici ne UP PLAN] Future Scheduled ZOSTER VACCINE (1 of [employer] Test 2) [code = ZOSTER of Medicin e VACCINE (1 of 2)] Future Scheduled OSTEOPOROSIS [facility] [place] [employer] Test SCREENING [code = of Medicin e OSTEOPOROSIS SCREENING] Future Scheduled PNEUMOVAX >=65 [facility] [place] [employer] Test (PPSV23) [code = of Medicine PNEUMOVAX >=65 (PPSV23)] Future Scheduled MEDICARE AWV [facility] [place] [employer] Test (Initial) [code = of Medicin e MEDICARE AWV (Initial)] Future Scheduled FLU VACCINE > 6 [facility] [place] [facility] [employer] Test MONTHS [code = FLU of Medici ne VACCINE > 6 MONTHS] Future Scheduled FALL SCREEN [code = [employer] FALL SCREEN] of Medicine Future Scheduled ORT - XR KNEE RIGHT Ordered: [employer] [facility] 4V (CHARGE ONLY) 02/26/2020 of Medicine [code = 37299] Future Scheduled XR KNEE RIGHT AP, [facility] [place] [employer] Test LAT, BOTH OBLIQUES of Medici ne [code = 38496-9] Future Scheduled TETANUS SHOT (ADULT) [employer] Test [code = TETANUS SHOT of Medi cine (ADULT)] Future Scheduled BMI FOLLOW UP PLAN [employer] [facility] [code = BMI FOLLOW of Medici ne UP PLAN] Future Scheduled ZOSTER VACCINE (1 of [employer] Test 2) [code = ZOSTER of Medicin e VACCINE (1 of 2)] Future Scheduled OSTEOPOROSIS [facility] [place] [employer] Test SCREENING [code = of Medicin e OSTEOPOROSIS SCREENING] Future Scheduled PNEUMOVAX >=65 [facility] [place] [employer] Test (PPSV23) [code = of Medicine PNEUMOVAX >=65 (PPSV23)] Future Scheduled MEDICARE AWV [facility] [place] [employer] Test (Initial) [code = of Medicin e MEDICARE AWV (Initial)] Future Scheduled FLU VACCINE > 6 [facility] [place] [facility] [employer] Test MONTHS [code = FLU of Medici ne VACCINE > 6 MONTHS] Future Scheduled FALL SCREEN [code = [employer] FALL SCREEN] of Medicine Future Scheduled XR KNEE RIGHT AP, [address] [facility] Test LAT, BOTH OBLIQUES starting of Medici ne [code = 58409-3] 02/26/2020 until 09/25/2020 Encounters Start End Encounter Admission Attending Care Care Encounter Source Date/Time Date/Time Type Type Clinicians Facility Department ID 2021-03-16 Inpatient [facility] Surgery [id number] [facility] 00:27:59 DARRICK 2022-02-27 2022-02-27 Office GABO VICK 1.2.840.114 [id number] [facility] [place] 08:52:19 10:45:14 Visit DARRICK AMBULATOR 350.1.13.21 College Y 0.2.7.2.686 of [id number] Medi josué 600 e 2022-02-27 2022-02-27 Outpatient [facility] [id number] [facility] [place] 09:05:20 09:05:20 Colleg e of Medicin e 2021-11-05 2021-11-05 Telephone Nurse, Reid [facility] 1.2.840.114 [id number] Univers 00:00:00 00:00:00 Db Urgent HEALTH 350.1.13.10 ity of Care [place] 4.2.7.2.686 Lanre as BILL?BLEA [phone] [address] MEDICAL OFFICE BUILDING 2021-11-04 2021-11-04 Laboratory Only, Reid Db Test [facility] 1.2.[id number] [facility] 11:30:00 11:45:00 Only Song Bel HEALTH 350.1.13.10 ity of [facility] 4.2.7.2.686 Lanre as BILL?BLEA [phone] [address] MEDICAL OFFICE BUILDING 2021-11-04 2021-11-04 Outpatient R TON, [facility] [id number] [facility] 11:30:00 11:30:00 BEL itdonald [facility] 2021-03-29 2021-03-29 Outpatient R ERICK, [facility] [id number] [facility] 15:30:00 15:30:00 ALEK itdonald [facility] 2021-03-29 2021-03-29 Imm/Inj Nurse, Adc Pob Immunization [facility] 1.2.840.114 [id number] Univers 15:09:08 15:09:19 Visit Erick Alek Colin Avalos 350.1.13 .10 ity [facility] [place]7.[place] [phone] [facility] 2021-01-28 2021-01-28 Letter DMITRY Arrieta 1.2.840.114 [id number] Univers 00:00:00 00:00:00 (Out) Chantale ZAMORA 350.1.13.10 it y of [facility] 4.2.7.2.686 Lanre as [phone] [facility] [address] [place] 2021-01-27 2021-01-27 Outpatient R MARY [facility] [id number] Univers 13:35:00 13:35:00 CRALO ity [facility] 2021-01-27 2021-01-27 Letter Doctor ANDRES 1.2.840.114 [id number] [facility] 00:00:00 00:00:00 (Out) UnassignedNOAH 350.1.13.10 ity of [facility] 4.2.7.2.686 Lanre as [phone] [address] 2021-01-27 2021-01-27 Letter Doctor ANDRES 1.2.840.114 [id number] Univers 00:00:00 00:00:00 (Out) UnassignedNOAH 350.1.13.10 ity of [facility] 4.2.7.2.686 Lanre as [phone] [address] 2020-04-26 2020-04-26 Office GABO Vick 1.2.840.114 [id number] [facility] [place] 09:12:31 09:56:39 Visit Darrick AMBULATOR 350.1.13.21 College Y 0.2.7.2.686 of [id number] [facility] 600 e 2020-04-26 2020-04-26 Office Vick, GABO 1.2.840.114 [id number] 09:12:31 09:56:39 Visit Darrick AMBULATOR 350.1.13.21 Y 0.2.7.2.686 [id number] 600 2020-02-26 2020-02-26 Office Vick, FRANKLINPia 1.2.840.114 [id number] [facility] [place] 10:05:08 10:15:08 Visit Darrick AMBULATOR 350.1.13.21 College Y 0.2.7.2.686 of [id number] [facility] 600 e 2020-02-26 2020-02-26 Office Vick, FRANKLINM 1.2.840.114 [id number] 10:05:08 10:15:08 Visit Darrick AMBULATOR 350.1.13.21 Y 0.2.7.2.686 [id number] 600 2020-01-29 2020-01-29 Office GABO Vick 1.2.840.114 [id number] [facility] [place] 10:08:48 11:01:35 Visit Darrick AMBULATOR 350.1.13.21 College Y 0.2.7.2.686 of [id number] [facility] 600 e 2020-01-29 2020-01-29 Office GABO Vick 1.2.840.114 [id number] 10:08:48 11:01:35 Visit Darrick AMBULATOR 350.1.13.21 Y 0.2.7.2.686 [id number] 600 2020-01-07 2020-01-07 Outpatient [facility] [id number] [facility] 00:00:00 00:00:00 2019-12-29 2019-12-29 Office GABO Vick 1.2.840.114 [id number] [facility] [place] 09:15:39 10:16:40 Visit Darrick AMBULATOR 350.1.13.21 College Y 0.2.7.2.686 of [id number] [facility] 600 e 2019-12-29 2019-12-29 Office GABO Vick 1.2.840.114 [id number] 09:15:39 10:16:40 Visit Darrick AMBULATOR 350.1.13.21 Y 0.2.7.2.686 [id number] 600 2019-11-25 2019-11-25 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 [facility] 4 [id number] [facility] 14:15:00 14:15:00 Pre-Reg r Medicine 90 [address] Vieira 2019-11-25 2019-11-25 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 [facility] 4 [id number] [facility] 14:15:00 14:15:00 Pre-Reg r Medicine 90 glad[address] Vieira 2019-11-25 2019-11-25 Outpatient [facility] [id number] [facility] 09:15:00 09:15:00 90 [address] Dariel 2019-11-25 2019-11-25 Outpatient Beth MG MG [id number] 09:15:00 09:15:00 Mar 90 Joser 2019-11-18 2019-11-18 Outpatient MHIE MHIE [id number] [facility] 08:15:00 08:15:00 91 l Dariel 2019-11-18 2019-11-18 Outpatient MHIE MH[facility] [id number] [facility] 08:15:00 08:15:00 91 l Dariel 2019-10-01 2019-10-02 [place] [id number] [facility] 14:45:00 04:59:59 r Cardiology [address] 2019-10-01 2019-10-02 Outpatient nullFlavo [facility] [id number] [facility] 14:45:00 04:59:59 r Cardiology 83 [address] [facility]iel 2019-10-01 2019-10-01 Outpatient Trent, L MG MG [id number] 09:45:00 23:59:59 Chrissy 83 2019-10-01 2019-10-01 Outpatient MHIE MHIE [id number] [facility] 09:45:00 09:45:[address] 2019-09-29 2019-10-01 Phone nullFlavo MG [id number] [facility] 16:13:37 04:59:59 Message r Cardiology 15 gladys Vieira 2019-09-29 2019-10-01 Phone nullFlavo MG [id number] [facility] 16:13:37 04:59:59 Message r Cardiology 15 gladys Santanaann 2019-09-29 2019-09-30 Outpatient [facility] [id number] 11:13:37 23:59:59 15 2019-08-20 2019-08-22 Phone nullFlavo MG Family [id number] Memoria 21:25:11 04:59:59 Message r Medicine 14 gladys Vieira 2019-08-20 2019-08-22 Phone nullFlavo [facility] Family [id number] [facility] 21:25:11 04:59:59 Message r Medicine 14 gladys Santanaann 2019-08-20 2019-08-21 Outpatient [facility] MG [id number] 16:25:11 23:59:59 14 2019-08-14 2019-08-15 Outpatient nullFlavo [facility] Family 4 [id number] [facility] 15:15:00 05:59:59 r Medicine 85 [address] Santanaann 2019-08-14 2019-08-15 Outpatient nullFlavo MG Family 4 [id number] [facility] 15:15:00 05:59:59 r Medicine 85 gladys Pineda Dariel 2019-08-14 2019-08-14 Outpatient Beth, MG MG [id number] 09:15:00 23:59:59 Mar [facility] 2019-08-14 2019-08-14 Outpatient MHIE MHIE [id number] Memoria 09:15:00 09:15:[address] 2019-08-05 2019-08-05 Outpatient [facility] [id number] [facility] 07:45:00 07:45:[address] 2019-08-05 2019-08-05 Outpatient MHIE [facility] [id number] [facility] 07:45:00 07:45:[address] 2019-07-22 2019-07-23 Outpatient nullFlavo MG Family 4 [id number] [facility] 22:15:00 05:59:59 r Medicine [address] 2019-07-22 2019-07-23 Outpatient nullFlavo [facility] 4 [id number] [facility] 22:15:00 05:59:59 r Medicine [address] 2019-07-22 2019-07-22 Outpatient Beth, MG MG [id number] 16:15:00 23:59:59 Mar 89 Guitar 2019-07-22 2019-07-22 Outpatient MHIE IE [id number] [facility] 16:15:00 16:15:[address] 2019-07-10 2019-07-10 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 4 [id number] [facility] 16:00:00 16:00:00 Pre-Reg r Edwin [address] 2019-07-10 2019-07-10 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 4 [id number] [facility] 16:00:00 16:00:00 Pre-Reg r [place] [address] 2019-07-10 2019-07-10 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 [id number] [facility] 15:30:00 15:30:00 Pre-Reg r Radiology [address] 2019-07-10 2019-07-10 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 [id number] [facility] 15:30:00 15:30:00 Pre-Reg r Radiology [address] [place] [address] 2019-07-10 2019-07-10 Outpatient MHIE IE [id number] [facility] 10:00:00 10:00:[address] 2019-07-10 2019-07-10 [place] [id number] 10:00:00 10:00:00 Brendon Mckeon 65 2019-07-10 2019-07-10 [id number] 09:30:00 09:30:00 NURSE STWC 64 MAMMO 2019-06-17 2019-06-18 [place] [id number] [facility] 20:45:00 05:59:59 r Radiology [address] [place] [address] 2019-06-17 2019-06-18 [place] [id number] [facility] 20:45:00 05:59:59 r Radiology [address] 2019-06-17 2019-06-18 Outpatient nullFlavo [facility] Family 4 [id number] Memoria 19:45:00 05:59:59 r Medicine 87 [address] 2019-06-17 2019-06-18 Outpatient nullFlavo [facility] 4 [id number] [facility] 19:45:00 05:59:59 r Medicine 87 glad[address] Vieira 2019-06-17 2019-06-17 Outpatient VISIT, [facility] [id number] 14:45:00 23:59:59 NURSE [facility] [address] 2019-06-17 2019-06-17 Outpatient Nwani, [facility] [id number] 13:45:00 23:59:59 José Miguel [address] 2019-06-17 2019-06-17 Outpatient MHIE MHIE [id number] Memoria 14:45:00 14:45:00 [address] 2019-06-17 2019-06-17 Outpatient MHIE MHIE [id number] Memoria 13:45:00 13:45:00 [address] 2019-05-16 2019-05-17 Outpatient nullFlavo [facility] Family 4 [id number] Memoria 16:00:00 05:59:59 r Medicine [address] 2019-05-16 2019-05-17 Outpatient nullFlavo [facility] Family 4 [id number] Memoria 16:00:00 05:59:59 r Medicine 84 gladys Vieira 2019-05-16 2019-05-16 Outpatient Beth, [facility] [id number] 10:00:00 23:59:59 Mar Haider 2019-05-16 2019-05-16 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 [facility] Family 4 [id number] Memoria 16:00:00 16:00:00 Pre-Reg r Medicine 74 gladys Vieira 2019-05-16 2019-05-16 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 [facility] Family 4 [id number] Memoria 16:00:00 16:00:00 Pre-Reg r Medicine 74 gladys Vieira 2019-05-16 2019-05-16 Outpatient MHIE MHIE [id number] Memoria 10:00:00 10:00:00 83 gladys Vieira 2019-05-16 2019-05-16 Outpatient MHIE MHIE [id number] Memoria 10:00:00 10:00:[address] 2019-05-16 2019-05-16 Outpatient Beth, MHMG MG [id number] 10:00:00 10:00:00 Mar Haider 2019-05-09 2019-05-09 Outpatient MHIE MHIE [id number] Memoria 07:10:00 07:10:00 75 gladys Vieira 2019-05-09 2019-05-09 Outpatient MHIE MHIE [id number] Memoria 07:10:00 07:10:00 75 gladys Vieira 2019-04-09 2019-04-11 Phone nullFlavo [facility] Family [id number] Memoria 14:52:12 04:59:59 Message r Medicine 13 gladys Vieira 2019-04-09 2019-04-11 Phone nullFlavo [facility] Family [id number] Memoria 14:52:12 04:59:59 Message r Medicine 13 gladys Vieira 2019-04-09 2019-04-10 Outpatient MHMG MHMG [id number] 09:52:12 23:59:59 13 2019-04-02 2019-04-03 [place] [id number] Memoria 14:15:00 04:59:59 r Cardiology 80 gladys Vieira 2019-04-02 2019-04-03 Outpatient nullFlavo [facility] [id number] Memoria 14:15:00 04:59:59 r Cardiology 80 gladys Vieira 2019-04-02 2019-04-02 Outpatient Gladys Newman MG [place] [id number] 09:15:00 23:59:59 Chrissy 81 2019-04-02 2019-04-02 Outpatient MHIE MHIE [id number] Memoria 09:15:00 09:15:00 80 gladys Vieira 2019-03-28 2019-03-28 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 [facility] [id number] Memoria 15:15:00 15:15:00 Pre-Reg r Cardiology 79 gladys Vieira 2019-03-28 2019-03-28 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 [facility] [id number] Memoria 15:15:00 15:15:00 Pre-Reg r Cardiology 80 gladys Vieira 2019-03-28 2019-03-28 Outpatient MHIE MHIE [id number] Memoria 10:15:00 10:15:00 79 gladys Vieira 2019-03-28 2019-03-28 Outpatient Trent, L [facility]MG MG [id number] 10:15:00 10:15:00 Chrissy 80 2019-03-27 2019-03-28 Outpatient nullFlavo [facility] Family 4 [id number] Memoria 18:00:00 04:59:59 r Medicine 82 gladys Vieira 2019-03-27 2019-03-28 Outpatient nullFlavo [facility] Family 4 [id number] Memoria 18:00:00 04:59:59 r Medicine 82 gladys Vieira 2019-03-27 2019-03-27 Outpatient Nwani, [facility] [id number] 13:00:00 23:59:59 José Miguel 81 Darci 2019-03-27 2019-03-27 Outpatient MHIE MHIE [id number] Memoria 13:00:00 13:00:00 81 gladys Vieira 2019-03-24 2019-03-24 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 [facility] [id number] Memoria 13:45:00 13:45:00 Pre-Reg r Cardiology 73 gladys Vieira 2019-03-24 2019-03-24 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 [facility] [id number] Memoria 13:45:00 13:45:00 Pre-Reg r Cardiology 73 gladys Vieira 2019-03-24 2019-03-24 Outpatient MHIE MHIE [id number] Memoria 08:45:00 08:45:00 73 gladys Vieira 2019-03-24 2019-03-24 Outpatient Trent, L [facility]MG MG [id number] 08:45:00 08:45:00 Chrissy 74 2019-03-17 2019-03-17 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 [facility] Family 4 [id number] Memoria 19:45:00 19:45:00 Pre-Reg r Medicine 78 gladys Vieira 2019-03-17 2019-03-17 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 [facility] Family 4 [id number] Memoria 19:45:00 19:45:00 Pre-Reg r Medicine 78 gladys Vieira 2019-03-17 2019-03-17 Outpatient Doran, [facility] [id number] 14:45:00 14:45:00 Luca 78 2019-03-17 2019-03-17 Outpatient MHIE MHIE [id number] Memoria 13:30:00 13:30:00 78 gladys Vieira 2019-02-27 2019-02-28 Outpatient nullFlavo [facility] Family 4 [id number] Memoria 15:15:00 04:59:59 r Medicine 78 gladys Vieira 2019-02-27 2019-02-28 Outpatient nullFlavo [facility] Family 4 [id number] Memoria 15:15:00 04:59:59 r Medicine 78 gladys Vieira 2019-02-27 2019-02-27 Outpatient NICOLE CamposMG [facility]MG [id number] 10:15:00 23:59:59 Mar 77 Meliza 2019-02-27 2019-02-27 Outpatient MHIE MHIE [id number] Memoria 10:15:00 10:15:00 77 gladys Vieira 2019-01-01 2019-01-02 Outpatient nullFlavo [facility] Family 4 [id number] Memoria 13:30:00 04:59:59 r Medicine 77 gladys Vieira 2019-01-01 2019-01-02 Outpatient nullFlavo [facility] Family 4 [id number] Memoria 13:30:00 04:59:59 r Medicine 77 gladys Vieira 2019-01-01 2019-01-01 Outpatient MHMG MHMG [id number] 08:30:00 23:59:59 77 2019-01-01 2019-01-01 Outpatient MHIE MHIE [id number] Memoria 08:30:00 08:30:00 76 gladys Vieira 2018-11-15 2018-11-16 Outpatient nullFlavo [facility] Family 4 [id number] Memoria 14:00:00 04:59:59 r Medicine 73 gladys Vieira 2018-11-15 2018-11-16 Outpatient nullFlavo [facility] Family 4 [id number] Memoria 14:00:00 04:59:59 r Medicine 72 gladys Vieira 2018-11-15 2018-11-15 Outpatient Abraham MG [facility]MG [id number] 09:00:00 23:59:59 Onofre Nieto 2018-11-15 2018-11-15 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 [facility] Family 4 [id number] Memoria 14:00:00 14:00:00 Pre-Reg r Medicine 60 gladys Vieira 2018-11-15 2018-11-15 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 [facility] Family 4 [id number] Memoria 14:00:00 14:00:00 Pre-Reg r Medicine 60 gladys Vieira 2018-11-15 2018-11-15 Outpatient MHIE MHIE [id number] Memoria 09:00:00 09:00:00 72 gladys Vieira 2018-11-15 2018-11-15 Outpatient MHIE MHIE [id number] Memoria 09:00:00 09:00:00 60 gladys Vieira 2018-11-15 2018-11-15 [id number] 09:00:00 09:00:00 Onofre Bonner Jose 2018-11-08 2018-11-08 Outpatient MHIE MHIE [id number] Memoria 07:00:00 07:00:00 61 gladys Vieira 2018-11-08 2018-11-08 Outpatient MHIE MHIE [id number] Memoria 07:00:00 07:00:00 61 gladys Vieira 2018-09-23 2018-09-24 [place] [id number] Memoria 15:15:00 04:59:59 r Cardiology 57 gladys Vieira 2018-09-23 2018-09-24 [place] [id number] Memoria 15:15:00 04:59:59 r Cardiology 57 gladys Vieira 2018-09-23 2018-09-23 Outpatient Gladys Newman MG MG [id number] 10:15:00 23:59:59 Chrissy 58 2018-09-23 2018-09-23 Outpatient MHIE MHIE [id number] Memoria 10:15:00 10:15:00 57 gladys Vieira 2018-09-10 2018-09-11 [place] [id number] Memoria 21:00:00 04:59:59 r Pulmonology [address] 2018-09-10 2018-09-11 [place] [id number] Memoria 21:00:00 04:59:59 r Pulmonology [address] 2018-09-10 2018-09-10 Outpatient Thrasher, MG MG [id number] 16:00:00 23:59:59 Alan 50 Joseph 2018-09-10 2018-09-10 Outpatient MHIE MHIE [id number] Memoria 16:00:00 16:00:[address] 2018-08-01 2018-08-02 Outpatient nullFlavo [facility] Family 4 [id number] Memoria 14:30:00 05:59:59 r Medicine [address] 2018-08-01 2018-08-02 Outpatient nullFlavo [facility] Family 4 [id number] Memoria 14:30:00 05:59:59 r Medicine [address] 2018-08-01 2018-08-01 Outpatient Rosholt, MHMG MG [id number] 08:30:00 23:59:59 [place] 71 ks Mani 2018-08-01 2018-08-01 Outpatient MHIE MHIE [id number] Memoria 08:30:00 08:30:[address] 2018-07-11 2018-07-12 Outpt Diag nullFlavo [facility] [id number] Memoria 14:27:00 05:59:00 Services r Outpatient 02 l Imaging Dariel [place] 2018-07-11 2018-07-12 Outpt Diag nullFlavo [facility] [id number] Memoria 14:27:00 05:59:00 Services r Outpatient 02 [address] [place] [address] 2018-07-11 2018-07-11 Outpatient Sangalli, MH29 MH29 [id number] 08:27:00 23:59:00 Brendon Mckeon 2018-07-11 2018-07-11 Outpatient Sangalli, MH29 MH29 [id number] 08:27:00 23:59:00 Brendon Mckeon 2018-07-09 2018-07-10 Outpatient nullFlavo [facility] Family 4 [id number] Memoria 15:30:00 05:59:59 r Medicine [address] [place] [address] 2018-07-09 2018-07-10 Outpatient nullFlavo [facility] Family 4 [id number] Memoria 15:30:00 05:59:59 r Medicine [address] [place] [address] 2018-07-09 2018-07-10 Outpatient nullFlavo [facility] Family 4 [id number] Memoria 14:00:00 05:59:59 r Medicine [address] [place] [address] 2018-07-09 2018-07-10 Outpatient nullFlavo [facility] Family 4 [id number] Memoria 14:00:00 05:59:59 r Medicine 67 gladys Vieira 2018-07-09 2018-07-09 Outpatient VISIT, MHMG MG [id number] 09:30:00 23:59:59 NURSE STWH 71 DEXA 2018-07-09 2018-07-09 Outpatient VISIT, MHMG MG [id number] 09:30:00 23:59:59 NURSE STWH 71 DEXA 2018-07-09 2018-07-09 Outpatient MHMG MHMG [id number] 08:00:00 23:59:59 67 2018-07-09 2018-07-09 Outpatient MHMG MHMG [id number] 08:00:00 23:59:59 67 2018-07-09 2018-07-09 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 [facility] [id number] Memoria 15:30:00 15:30:00 Pre-Reg r Radiology 69 gladys Vieira 2018-07-09 2018-07-09 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 [facility] [id number] Memoria 15:30:00 15:30:00 Pre-Reg r Radiology 68 gladys Vieira 2018-07-09 2018-07-09 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 [facility] [id number] Memoria 15:30:00 15:30:00 Pre-Reg r Radiology 67 gladys Vieira 2018-07-09 2018-07-09 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 [facility] [id number] Memoria 15:30:00 15:30:00 Pre-Reg r Radiology 65 gladys Vieira 2018-07-09 2018-07-09 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 [facility] [id number] Memoria 15:30:00 15:30:00 Pre-Reg r Radiology 67 gladys Vieira 2018-07-09 2018-07-09 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 [facility] [id number] Memoria 15:30:00 15:30:00 Pre-Reg r Radiology 69 gladys Vieira 2018-07-09 2018-07-09 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 [facility] [id number] Memoria 15:30:00 15:30:00 Pre-Reg r Radiology 65 gladys [place] 2018-07-09 2018-07-09 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 [facility] [id number] Memoria 15:30:00 15:30:00 Pre-Reg r Radiology [address] 2018-07-09 2018-07-09 Outpatient MHIE MHIE [id number] Memoria 09:30:00 09:30:[address] 2018-07-09 2018-07-09 Outpatient MHIE MHIE [id number] Memoria 09:30:00 09:30:[address] 2018-07-09 2018-07-09 Outpatient MHIE MHIE [id number] Memoria 09:30:00 09:30:[address] 2018-07-09 2018-07-09 Outpatient MHIE MHIE [id number] Memoria 09:30:00 09:30:[address] 2018-07-09 2018-07-09 Outpatient MHIE MHIE [id number] Memoria 09:30:00 09:30:00 65 gladys Dariel 2018-07-09 2018-07-09 Outpatient VISIT, MHMG MHMG [id number] 09:30:00 09:30:00 NURSE STWH 68 DEXA 2018-07-09 2018-07-09 Outpatient VISIT, MHMG MHMG [id number] 09:30:00 09:30:00 NURSE STWH 66 DEXA 2018-07-09 2018-07-09 Outpatient VISIT, MHMG MHMG [id number] 09:30:00 09:30:00 NURSE STWH 69 DEXA 2018-07-09 2018-07-09 Outpatient VISIT, MHMG MHMG [id number] 09:30:00 09:30:00 NURSE STWH 70 DEXA 2018-07-09 2018-07-09 Outpatient VISIT, MHMG MHMG [id number] 09:30:00 09:30:00 NURSE STWH 66 DEXA 2018-07-09 2018-07-09 Outpatient VISIT, MHMG MHMG [id number] 09:30:00 09:30:00 NURSE STWH 68 DEXA 2018-07-09 2018-07-09 Outpatient VISIT, MHMG MHMG [id number] 09:30:00 09:30:00 NURSE STWH 69 DEXA 2018-07-09 2018-07-09 Outpatient VISIT, MHMG MHMG [id number] 09:30:00 09:30:00 NURSE STWH 70 DEXA 2018-07-09 2018-07-09 Outpatient MHIE MHIE [id number] Memoria 08:00:00 08:00:00 66 gladys Vieira 2018-07-08 2018-07-09 Outpatient nullFlavo [facility] [employer] 4 [id number] Memoria 16:00:00 05:59:59 r Edwin 43 gladys Vieira 2018-07-08 2018-07-09 Outpatient nullFlavo [facility] [employer] 4 [id number] Memoria 16:00:00 05:59:59 r Edwin 44 gladys Vieira 2018-07-08 2018-07-09 Outpatient nullFlavo [facility] Family 4 [id number] Memoria 15:30:00 05:59:59 r Medicine 62 gladys Vieira 2018-07-08 2018-07-09 Outpatient nullFlavo [facility] Family 4 [id number] Memoria 15:30:00 05:59:59 r Medicine 63 gladys Vieira 2018-07-08 2018-07-08 Outpatient Sangalli, MHMG MHMG [id number] 10:00:00 23:59:59 Brendon Mckeon 44 2018-07-08 2018-07-08 Outpatient Sangalli, MHMG MHMG [id number] 10:00:00 23:59:59 Brendon Mckeon 44 2018-07-08 2018-07-08 Outpatient VISIT, MHMG MHMG [id number] 09:30:00 23:59:59 NURSE STWH 63 DENISE 2018-07-08 2018-07-08 Outpatient VISIT, MHMG MHMG [id number] 09:30:00 23:59:59 NURSE STWH 63 DEXA 2018-07-08 2018-07-08 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 [facility] [id number] Memoria 15:30:00 15:30:00 Pre-Reg r Radiology 42 gladys Vieira 2018-07-08 2018-07-08 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 [facility] [id number] Memoria 15:30:00 15:30:00 Pre-Reg r Radiology 43 gladys Vieira 2018-07-08 2018-07-08 Outpatient MHIE MHIE [id number] Memoria 10:00:00 10:00:00 42 gladys [place] 2018-07-08 2018-07-08 Outpatient MHIE MHIE [id number] Memoria 10:00:00 10:00:00 43 gladys Vieira 2018-07-08 2018-07-08 Outpatient MHIE MHIE [id number] Memoria 09:30:00 09:30:00 62 gladys Vieira 2018-07-08 2018-07-08 Outpatient VISIT, MHMG MHMG [id number] 09:30:00 09:30:00 N[address] 43 PRAKASH 2018-07-08 2018-07-08 Outpatient VISIT, MG MG [id number] 09:30:00 09:30:00 N[address]W 43 EMERSONO 2018-05-16 2018-05-17 Outpatient nullFlavo [facility] Family 4 [id number] Memoria 15:45:00 05:59:59 r Medicine 59 gladys Vieira 2018-05-16 2018-05-17 Outpatient nullFlavo [facility] Family 4 [id number] Memoria 15:45:00 05:59:59 r Medicine 59 gladys Vieira 2018-05-16 2018-05-16 [id number] 09:45:00 23:59:59 Onofre P 60 2018-05-16 2018-05-16 Outpatient MHIE MHIE [id number] Memoria 09:45:00 09:45:00 59 gladys Vieira 2018-05-09 2018-05-09 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 [facility] Family 4 [id number] Memoria 14:30:00 14:30:00 Pre-Reg r Medicine 41 gladys Vieira 2018-05-09 2018-05-09 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 [facility] Family 4 [id number] Memoria 14:30:00 14:30:00 Pre-Reg r Medicine 41 gladys Vieira 2018-05-09 2018-05-09 Outpatient MHIE MHIE [id number] Memoria 08:30:00 08:30:00 40 gladys V[place] 2018-05-09 2018-05-09 Outpatient MARY Rosario MG [id number] 08:30:00 08:30:00 Onofre P 41 2018-03-28 2018-03-29 Outpatient nullFlavo [facility] Family 4 [id number] Memoria 18:15:00 04:59:59 r Medicine 58 gladys Vieira 2018-03-28 2018-03-29 Outpatient nullFlavo [facility] Family 4 [id number] Memoria 18:15:00 04:59:59 r Medicine 58 gladys Vieira 2018-03-28 2018-03-28 Outpatient NICOLE CamposMG [facility] [id number] 13:15:00 23:59:59 Mar 59 Meliza 2018-03-28 2018-03-28 Outpatient MHIE IE [id number] Memoria 13:15:00 13:15:00 58 gladys Vie[place] 2018-03-25 2018-03-26 [place] [id number] Memoria 14:45:00 04:59:59 r Cardiology 56 gladys Vieira 2018-03-25 2018-03-26 [place] [id number] Memoria 14:45:00 04:59:59 r Cardiology 57 gladys Vieira 2018-03-25 2018-03-25 Outpatient Trent L MG MG [id number] 09:45:00 23:59:59 Chrissy 57 2018-03-25 2018-03-25 Outpatient MHIE IE [id number] Memoria 09:45:00 09:45:00 56 gladys Vieira 2018-03-21 2018-03-21 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 [id number] Memoria 14:30:00 14:30:00 Pre-Reg r Cardiology 51 gladys Vieira 2018-03-21 2018-03-21 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 [id number] Memoria 14:30:00 14:30:00 Pre-Reg r Cardiology 51 gladys V[place] 2018-03-21 2018-03-21 Outpatient IE IE [id number] Memoria 09:30:00 09:30:00 51 gladys Vieira 2018-03-21 2018-03-21 Outpatient Trent L MG MG [id number] 09:30:00 09:30:00 Chrissy 52 2018-03-08 2018-03-09 [place] [id number] Memoria 14:30:00 04:59:59 r Otolaryngol 55 l lionel canela 2018-03-08 2018-03-09 [place] [id number] Memoria 14:30:00 04:59:59 r Otolaryngol 55 l lionel [place] 2018-03-08 2018-03-08 Outpatient Lazaro [facility] [id number] 09:30:00 23:59:59 Sreekrishna 55 Mahesh 2018-03-08 2018-03-08 Outpatient MHIE IE [id number] Memoria 09:30:00 09:30:00 55 gladys Vieira 2018-03-05 2018-03-06 Outpatient nullFlavo MG Family 4 [id number] Memoria 20:15:00 04:59:59 r Medicine 54 gladys Vieira 2018-03-05 2018-03-06 Outpatient nullFlavo [facility] Family 4 [id number] Memoria 20:15:00 04:59:59 r Medicine 54 gladys Vieira 2018-03-05 2018-03-05 Outpatient Abraham [facility] [id number] 15:15:00 23:59:59 Onofre P 55 2018-03-05 2018-03-05 Outpatient IE IE [id number] Memoria 15:15:00 15:15:00 54 gladys Vieira 2018-02-13 2018-02-14 Outpatient nullFlavo MG Family 4 [id number] Memoria 18:45:00 04:59:59 r Medicine 53 gladys Vieira 2018-02-13 2018-02-14 Outpatient nullFlavo [facility] Family 4 [id number] Memoria 18:45:00 04:59:59 r Medicine 53 gladys Vieira 2018-02-13 2018-02-13 Outpatient Abraham [facility] [id number] 13:45:00 23:59:59 Onofre P 54 2018-02-13 2018-02-13 Outpatient IE IE [id number] Memoria 13:45:00 13:45:[address] 2017-10-31 2017-11-01 Outpatient nullFlavo MNA [id number] Memoria 17:00:00 04:59:59 r Neuroscienc 53 l e Sugar [facility] 2017-10-31 2017-11-01 Outpatient nullFlavo MNA [id number] Memoria 17:00:00 04:59:59 r Neuroscienc 53 l e Sugar [facility] 2017-10-31 2017-10-31 [facility] [id number] 12:00:00 23:59:59 53 2017-10-31 2017-10-31 Outpatient MHIE MHIE [id number] Memoria 12:00:00 12:00:00 52 gladys [place] 2017-09-28 2017-09-30 Phone nullFlavo MNA [id number] Memoria 18:18:00 04:59:59 Message r Neuroscienc 12 l e [facility] 2017-09-28 2017-09-30 Phone nullFlavo MNA [id number] Memoria 18:18:00 04:59:59 Message r Neuroscienc 12 l e [facility] 2017-09-28 2017-09-29 Outpatient MHMISCHER MISCHER [id number] 13:18:00 23:59:59 12 2017-09-24 2017-09-26 Phone nullFlavo [facility] Family [id number] Memoria 13:37:00 04:59:59 Message r Medicine 11 gladys Vieira 2017-09-24 2017-09-26 Phone nullFlavo [facility] Family [id number] Memoria 13:37:00 04:59:59 Message r Medicine 11 gladys Vieira 2017-09-24 2017-09-25 Outpatient MHMG MHMG [id number] 08:37:00 23:59:59 11 2017-09-19 2017-09-20 Outpatient nullFlavo MHMG [id number] Memoria 14:15:00 04:59:59 r Cardiology 40 gladys Vieira 2017-09-19 2017-09-20 Outpatient nullFlavo MHMG [id number] Memoria 14:15:00 04:59:59 r Cardiology 40 gladys [place] 2017-09-19 2017-09-19 Outpatient Mazel, L MHMG MHMG [id number] 09:15:00 23:59:59 Chrissy 40 2017-09-19 2017-09-19 Outpatient Mazel, L MHMG MHMG [id number] 09:15:00 23:59:59 Chrissy 40 2017-09-19 2017-09-19 Outpatient MHIE MHIE [id number] Memoria 09:15:00 09:15:00 39 gladys [place] 2017-08-28 2017-08-29 Outpatient nullFlavo [facility] Family 4 [id number] Memoria 20:30:00 04:59:59 r Medicine 50 gladys V[place] 2017-08-28 2017-08-29 Outpatient nullFlavo MG Family 4 [id number] Memoria 20:30:00 04:59:59 r Medicine 50 gladys [place] 2017-08-28 2017-08-29 [place] [id number] Memoria 19:30:00 04:59:59 r Pulmonology 35 gladys Vieira 2017-08-28 2017-08-29 [place] [id number] Memoria 19:30:00 04:59:59 r Pulmonology 35 gladys [place] 2017-08-28 2017-08-28 [facility] [id number] 15:30:00 23:59:59 Mar Haider 2017-08-28 2017-08-28 Outpatient Thrasher, MG MG [id number] 14:30:00 23:59:59 Alan 35 Joseph 2017-08-28 2017-08-28 Outpatient Thrasher, MG MG [id number] 14:30:00 23:59:59 Alan 35 Joseph 2017-08-28 2017-08-28 Outpatient MHIE MHIE [id number] Memoria 15:30:00 15:30:00 49 gladys [place] 2017-08-28 2017-08-28 Outpatient MHIE MHIE [id number] Memoria 14:30:00 14:30:00 34 gladys [place] 2017-08-03 2017-08-04 Outpatient nullFlavo MG Family 4 [id number] Memoria 20:00:00 05:59:59 r Medicine 49 gladys [place] 2017-08-03 2017-08-04 Outpatient nullFlavo MG Family 4 [id number] Memoria 20:00:00 05:59:59 r Medicine 49 gladys [place] 2017-08-03 2017-08-03 Outpatient Beth, MG MG [id number] 14:00:00 23:59:59 Mar 49 Meliza 2017-08-03 2017-08-03 Outpatient MHIE MHIE [id number] Memoria 14:00:00 14:00:00 48 gladys [place] 2017-08-01 2017-08-03 Outside nullFlavo MG [id number] Memoria 21:46:00 05:59:59 Medical r Cardiology 10 gladys Vie[place] 2017-08-01 2017-08-03 Outside nullFlavo MG [id number] Memoria 21:46:00 05:59:59 Medical r Cardiology 10 gladys [place] 2017-08-01 2017-08-02 Outpatient MG MG [id number] 15:46:00 23:59:59 10 2017-07-25 2017-07-26 Outpatient nullFlavo MG Family 4 [id number] Memoria 20:15:00 05:59:59 r Medicine 48 gladys Vieira 2017-07-25 2017-07-26 Outpatient nullFlavo MG Family 4 [id number] Memoria 20:15:00 05:59:59 r Medicine 48 gladys V[place] 2017-07-25 2017-07-26 Outpatient nullFlavo MG Family 4 [id number] Memoria 19:15:00 05:59:59 r Medicine 46 gladys Vieira 2017-07-25 2017-07-26 Outpatient nullFlavo MG Family 4 [id number] Memoria 19:15:00 05:59:59 r Medicine 46 gladys [place] 2017-07-25 2017-07-25 [facility] [id number] 14:15:00 23:59:[address] 48 FABIOLA 2017-07-25 2017-07-25 Outpatient Beth, [facility] [id number] 13:15:00 23:59:59 Amr 46 Sincereitar 2017-07-25 2017-07-25 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 [id number] Memoria 20:15:00 20:15:00 Pre-Reg r Radiology 47 gladys [place] 2017-07-25 2017-07-25 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 [id number] Memoria 20:15:00 20:15:00 Pre-Reg r Radiology 47 gladys [place] 2017-07-25 2017-07-25 Outpatient IE IE [id number] Memoria 14:15:00 14:15:00 46 gladys [place] 2017-07-25 2017-07-25 Outpatient MHIE MHIE [id number] Memoria 14:15:00 14:15:00 47 l Dariel 2017-07-25 2017-07-25 Outpatient VISIT, MHMG MHMG [id number] 14:15:00 14:15:[address] 47 ANNEYNES 2017-07-25 2017-07-25 Outpatient MHIE MHIE [id number] Memoria 13:15:00 13:15:00 46 l Dariel 2017-06-28 2017-06-29 Outpatient nullFlavo [facility] Family 4 [id number] Memoria 16:00:00 05:59:59 r Medicine [address] 2017-06-28 2017-06-29 Outpatient nullFlavo [facility] Family 4 [id number] Memoria 16:00:00 05:59:59 r Medicine [address] 2017-06-28 2017-06-29 Outpatient nullFlavo [facility] [employer] 4 [id number] Memoria 15:00:00 05:59:59 r [place] 21 gladys Vieira 2017-06-28 2017-06-29 Outpatient nullFlavo [facility] [employer] 4 [id number] Memoria 15:00:00 05:59:59 r Edwn[place] 21 gladys [place] 2017-06-28 2017-06-28 Outpatient VISIT, MG MG [id number] 10:00:00 23:59:[address] 45 MAMMO 2017-06-28 2017-06-28 Outpatient Sangalli, MHMG MHMG [id number] 09:00:00 23:59:59 Brendon Mckeon 21 2017-06-28 2017-06-28 Outpatient Sangalli, MHMG MHMG [id number] 09:00:00 23:59:59 Brendon Mckeon 21 2017-06-28 2017-06-28 Outpatient Sangalli, MHMG MHMG [id number] 09:00:00 23:59:59 Brendon Mckeon 21 2017-06-28 2017-06-28 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 [facility] [id number] Memoria 16:00:00 16:00:00 Pre-Reg r Radiology 20 l Edwin [place]ira 2017-06-28 2017-06-28 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 [facility] [id number] Memoria 16:00:00 16:00:00 Pre-Reg r Radiology [address] 2017-06-28 2017-06-28 Outpatient [facility] [id number] Memoria 10:00:00 10:00:00 20 gladys Vieira 2017-06-28 2017-06-28 Outpatient [facility] [id number] Memoria 10:00:00 10:00:00 45 gladys Vieira 2017-06-28 2017-06-28 Outpatient VISIT, [facility] [id number] 10:00:00 10:00:00 N[facility]SE [facility] 2017-06-28 2017-06-28 Outpatient VISIT, [facility] [id number] 10:00:00 10:00:00 NURSE STWC [facility] 2017-06-28 2017-06-28 Outpatient VISIT, [facility] [id number] 10:00:00 10:00:00 NURSE STWC [facility] 2017-06-28 2017-06-28 Outpatient [facility] MHIE [id number] Memoria 09:00:00 09:00:00 21 gladys Vieira 2017-06-21 2017-06-23 Phone nullFlavo MG [id number] Memoria 19:39:00 05:59:59 Message r Cardiology 09 gladys Vieira 2017-06-21 2017-06-23 Phone nullFlavo MG [id number] Memoria 19:39:00 05:59:59 Message r Cardiology 09 gladys Vieira 2017-06-21 2017-06-22 Outpatient [facility] [id number] 13:39:00 23:59:59 09 2017-06-14 2017-06-16 Phone nullFlavo [facility] Family [id number] Memoria 14:53:00 05:59:59 Message r Medicine 08 gladys Vieira 2017-06-14 2017-06-16 Phone nullFlavo [facility] [id number] Memoria 14:53:00 05:59:59 Message r Medicine 08 gladys Vieira 2017-06-14 2017-06-15 Outpatient [facility] [id number] 08:53:00 23:59:59 08 2017-06-14 2017-06-15 Outpatient nullFlavo [facility] Family 4 [id number] Memoria 14:15:00 05:59:59 r Medicine 42 gladys Vieira 2017-06-14 2017-06-15 Outpatient nullFlavo [facility] Family 4 [id number] Memoria 14:15:00 05:59:59 r Medicine 42 gladys Vieira 2017-06-14 2017-06-14 Outpatient Espinoza MG [facility] [id number] 08:15:00 23:59:59 Luca 42 2017-06-14 2017-06-14 Outpatient [facility] MHIE [id number] Memoria 08:15:00 08:15:00 41 gladys Dariel 2017-04-27 2017-04-28 Outpatient nullFlavo [facility] Family 4 [id number] Memoria 15:15:00 05:59:59 r Medicine 18 gladys Vieira 2017-04-27 2017-04-28 Outpatient nullFlavo [facility] Family 4 [id number] Memoria 15:15:00 05:59:59 r Medicine 18 gladys Vieira 2017-04-27 2017-04-27 Outpatient Abraham MG MG [id number] 09:15:00 23:59:59 Onofre P 18 2017-04-27 2017-04-27 Outpatient [facility] [id number] Memoria 09:15:00 09:15:00 18 gladys Dariel 2017-03-21 2017-03-21 Outpatient [facility] [id number] Memoria 09:15:00 09:15:00 32 gladys Dariel 2017-03-21 2017-03-21 Outpatient [facility] [id number] 165 Memoria 09:15:00 09:15:00 33 gladys Vieira 2017-03-14 2017-03-14 Outpatient MHIE MHIE [id number] Memoria 08:45:00 08:45:00 38 gladys Vieira 2017-03-14 2017-03-14 Outpatient MHIE MHIE [id number] Memoria 08:45:00 08:45:00 38 gladys Vieira 2017-03-14 2017-03-14 Outpatient MHIE MHIE [id number] Memoria 08:30:00 08:30:00 39 gladys Vieira 2017-03-14 2017-03-14 Outpatient MHIE MHIE [id number] Memoria 08:30:00 08:30:00 39 gldays Vieira 2017-03-14 2017-03-14 Outpatient MHIE MHIE [id number] Memoria 08:00:00 08:00:[address] 2017-03-14 2017-03-14 Outpatient MHIE MHIE [id number] Memoria 08:00:00 08:00:00 37 gladys Dariel 2017-02-05 2017-02-05 Outpatient MHIE MHIE [id number] Memoria 09:30:00 09:30:[address] 2017-02-05 2017-02-05 Outpatient MHIE MHIE [id number] Memoria 09:30:00 09:30:00 32 l Dariel 2017-01-24 2017-01-24 Outpatient MHIE MHIE [id number] Memoria 14:30:00 14:30:[address] 2017-01-24 2017-01-24 Outpatient MHIE MHIE [id number] Memoria 14:30:00 14:30:00 36 gladys Dariel 2016-12-19 2016-12-19 Outpatient MHIE MHIE [id number] Memoria 13:30:00 13:30:00 34 gladys Vieira 2016-12-19 2016-12-19 Outpatient MHIE MHIE [id number] Memoria 13:30:00 13:30:[address] 2016-11-28 2016-11-28 Outpatient MHIE MHIE [id number] Memoria 12:00:00 12:00:[address] 2016-11-28 2016-11-28 Outpatient MHIE MHIE [id number] Memoria 12:00:00 12:00:00 31 gladys Vieira 2016-09-15 2016-09-15 Outpatient MHIE MHIE [id number] Memoria 09:45:00 09:45:[address] 2016-09-15 2016-09-15 Outpatient MHIE MHIE [id number] Memoria 09:45:00 09:45:00 17 l Dariel 2016-08-07 2016-08-07 Outpatient MHIE MHIE [id number] Memoria 09:45:00 09:45:[address] 2016-08-07 2016-08-07 Outpatient MHIE MHIE [id number] Memoria 09:45:00 09:45:00 25 gladys Vieira 2016-08-03 2016-08-03 Outpatient MHIE MHIE [id number] Memoria 15:00:00 15:00:00 28 l Dariel 2016-08-03 2016-08-03 Outpatient MHIE MHIE [id number] Memoria 15:00:00 15:00:00 28 l Dariel 2016-07-25 2016-07-25 Outpatient MHIE MHIE [id number] Memoria 15:00:00 15:00:[address] 2016-07-25 2016-07-25 Outpatient MHIE MHIE [id number] Memoria 15:00:00 15:00:[address] 2016-07-24 2016-07-24 Outpatient MHIE MHIE [id number] Memoria 15:00:00 15:00:[address] 2016-07-24 2016-07-24 Outpatient MHIE MHIE [id number] Memoria 15:00:00 15:00:[address] 2016-07-21 2016-07-22 Outpt Diag nullFlavo [facility] [id number] Memoria 20:03:00 05:59:00 Services r Outpatient [address] [place] 2016-07-21 2016-07-22 Outpt Diag nullFlavo [facility] [id number] Memoria 20:03:00 05:59:00 Services r Outpatient 01 l Imaging Dariel [place] 2016-07-21 2016-07-21 Outpatient Abbie, [id number] 14:03:00 23:59:00 Abdifatah Iniguez 2016-07-10 2016-07-10 Outpatient MHIE MHIE [id number] Memoria 13:30:00 13:30:00 26 l [place] 2016-07-10 2016-07-10 Outpatient MHIE MHIE [id number] Memoria 13:30:00 13:30:[address] 2016-07-10 2016-07-10 Outpatient MHIE MHIE [id number] Memoria 09:45:00 09:45:[address] 2016-07-10 2016-07-10 Outpatient MHIE MHIE [id number] Memoria 09:45:00 09:45:[address] 2016-07-07 2016-07-08 Outpt Diag nullFlavo [facility] [id number] Memoria 16:35:00 05:59:00 Services r Outpatient 00 l Imaging Dariel [place] 2016-07-07 2016-07-08 Outpt Diag nullFlavo [facility] [id number] Memoria 16:35:00 05:59:00 Services r Outpatient 00 gladys Vieira [place] 2016-07-07 2016-07-07 Outpatient JOHN Leiva MH29 [id number] 10:35:00 23:59:00 Abdifatah Cliff Hira 2016-07-03 2016-07-03 Outpatient MHIE MHIE [id number] Memoria 09:00:00 09:00:00 23 gladys Vieira 2016-07-03 2016-07-03 Outpatient MHIE MHIE [id number] Memoria 09:00:00 09:00:00 23 gladys Dariel 2016-07-03 2016-07-03 Outpatient MHIE MHIE [id number] Memoria 08:45:00 08:45:[address] 2016-07-03 2016-07-03 Outpatient MHIE MHIE [id number] Memoria 08:45:00 08:45:00 22 gladys Dariel 2016-06-22 2016-06-22 Outpatient MHIE MHIE [id number] Memoria 10:30:00 10:30:00 07 gladys Dariel 2016-06-22 2016-06-22 Outpatient MHIE MHIE [id number] Memoria 10:30:00 10:30:00 07 gladys Dariel 2016-05-18 2016-05-18 Outpatient MHIE MHIE [id number] Memoria 09:45:00 09:45:00 19 gladys Vieira 2016-05-18 2016-05-18 Outpatient MHIE MHIE [id number] Memoria 09:45:00 09:45:00 19 gladys Vieira 2016-04-28 2016-04-28 Outpatient MHIE MHIE [id number] Memoria 10:00:00 10:00:00 15 gladys Vieira 2016-04-28 2016-04-28 Outpatient MHIE MHIE [id number] Memoria 10:00:00 10:00:00 15 gladys Vieira 2016-04-21 2016-04-21 Outpatient MHIE MHIE [id number] Memoria 14:30:00 14:30:00 05 gladys Vieira 2016-04-21 2016-04-21 Outpatient MHIE MHIE [id number] Memoria 14:30:00 14:30:00 05 gladys Dariel 2016-03-17 2016-03-17 Outpatient MHIE MHIE [id number] Memoria 09:45:00 09:45:00 13 gladys Vieira 2016-03-17 2016-03-17 Outpatient MHIE MHIE [id number] Memoria 09:45:00 09:45:00 13 gladys Dariel 2016-02-25 2016-02-25 Outpatient MHIE MHIE [id number] Memoria 08:30:00 08:30:00 16 gladys Vieira 2016-02-25 2016-02-25 Outpatient MHIE MHIE [id number] Memoria 08:30:00 08:30:00 16 gladys Vieira 2016-02-07 2016-02-07 Outpatient MHIE MHIE [id number] Memoria 10:15:00 10:15:00 14 gladys Vieira 2016-02-07 2016-02-07 Outpatient MHIE MHIE [id number] Memoria 10:15:00 10:15:00 14 gladys Vieira 2015-09-16 2015-09-16 Outpatient MHIE MHIE [id number] Memoria 09:45:00 09:45:00 04 gladys Vieira 2015-09-16 2015-09-16 Outpatient MHIE MHIE [id number] Memoria 09:45:00 09:45:00 04 gladys Vieira 2015-08-03 2015-08-03 Outpatient MHIE MHIE [id number] Memoria 11:00:00 11:00:00 12 gladys Vieira 2015-08-03 2015-08-03 Outpatient MHIE MHIE [id number] Memoria 11:00:00 11:00:00 11 gladys Vieira 2015-08-03 2015-08-03 Outpatient MHIE MHIE [id number] Memoria 11:00:00 11:00:00 11 gladys Vieira 2015-08-03 2015-08-03 Outpatient MHIE MHIE [id number] Memoria 11:00:00 11:00:00 12 gladys Vieira 2015-08-02 2015-08-02 Outpatient MHIE MHIE [id number] Memoria 16:15:00 16:15:00 10 gladys Vieira 2015-08-02 2015-08-02 Outpatient MHIE MHIE [id number] Memoria 16:15:00 16:15:00 10 gladys Vieira 2015-07-15 2015-07-15 Outpatient MHIE MHIE [id number] Memoria 13:45:00 13:45:00 09 gladys Vieira 2015-07-15 2015-07-15 Outpatient MHIE MHIE [id number] Memoria 13:45:00 13:45:00 09 gladys Vieira 2015-06-23 2015-06-23 Outpatient MHIE MHIE [id number] Memoria 09:30:00 09:30:00 08 gladys Vieira 2015-06-23 2015-06-23 Outpatient MHIE MHIE [id number] Memoria 09:30:00 09:30:00 08 gladys Vieira 2015-06-17 2015-06-17 Outpatient MHIE MHIE [id number] Memoria 10:00:00 10:00:00 03 gladys Vieira 2015-06-17 2015-06-17 Outpatient MHIE MHIE [id number] Memoria 10:00:00 10:00:00 06 gladys Vieira 2015-06-17 2015-06-17 Outpatient MHIE MHIE [id number] Memoria 10:00:00 10:00:00 03 gladys Vieira 2015-06-17 2015-06-17 Outpatient MHIE MHIE [id number] Memoria 10:00:00 10:00:00 06 gladys Vieira 2015-06-17 2015-06-17 Outpatient MHIE MHIE [id number] Memoria 09:45:00 09:45:00 00 gladys Vieira 2015-06-17 2015-06-17 Outpatient MHIE MHIE [id number] Memoria 09:45:00 09:45:00 00 gladys Vieira 2015-04-21 2015-04-21 Outpatient MHIE MHIE [id number] Memoria 14:45:00 14:45:00 01 gladys Vieira 2015-04-21 2015-04-21 Outpatient MHIE MHIE [id number] Memoria 14:45:00 14:45:00 01 gladys Vieira 2015-03-17 2015-03-17 Outpatient MHIE MHIE [id number] Memoria 14:00:00 14:00:00 02 gladys Vieira 2015-03-17 2015-03-17 Outpatient MHIE MHIE [id number] Memoria 14:00:00 14:00:00 02 gladys Vieira Results Test Description Test Time Test Comments [...] code = 994) seen FUNGUS CULTURE + [id number] 16:29:00 Test Item Value Reference Range Interpretation Comments CULTURE (BEAKER) (test No fungus isolated in code = 1095) 28 days FUNGUS SMEAR (BEAKER) No fungi seen (test code = 1406) FUNGUS CULTURE + [id number] 16:29:00 Test Item Value Reference Range Interpretation Comments CULTURE (BEAKER) (test No fungus isolated in code = 1095) 28 days FUNGUS SMEAR (BEAKER) No fungi seen (test code = 1406) FUNGUS CULTURE + [id number] 16:29:00 Test Item Value Reference Range Interpretation Comments CULTURE (BEAKER) (test No fungus isolated in code = 1095) 28 days FUNGUS SMEAR (BEAKER) No fungi seen (test code = 1406) ANAEROBIC [id number] 19:02:00 Test Item Value Reference Range Interpretation Comments CULTURE (BEAKER) (test No anaerobes isolated code = 1095) ANAEROBIC [id number] 18:50:00 Test Item Value Reference Range Interpretation Comments CULTURE (BEAKER) (test No anaerobes isolated code = 1095) ANAEROBIC [id number] 18:49:00 Test Item Value Reference Range Interpretation Comments CULTURE (BEAKER) (test No anaerobes isolated code = 1095) SURGICALLY OBTAINED CULTURE + GRAM [id number] 12:55:00 Test Item Value Reference Range Interpretation Comments CULTURE (BEAKER) (test code No growth = 1095) GRAM STAIN RESULT (BEAKER) No WBCs (test code = 1123) GRAM STAIN RESULT (BEAKER) No organisms seen (test code = 67082) SURGICALLY OBTAINED CULTURE + GRAM [id number] 12:54:00 Test Item Value Reference Range Interpretation Comments CULTURE (BEAKER) (test code No growth = 1095) GRAM STAIN RESULT (BEAKER) 1+ WBCs (test code = 1123) GRAM STAIN RESULT (BEAKER) No organisms seen (test code = 73158) SURGICALLY OBTAINED CULTURE + GRAM [id number] 12:53:00 Test Item Value Reference Range Interpretation Comments CULTURE (BEAKER) (test code No growth = 1095) GRAM STAIN RESULT (BEAKER) 1+ WBCs (test code = 1123) GRAM STAIN RESULT (BEAKER) No organisms seen (test code = 03344) TISSUE [id number] 12:16:00Surgical Pathology Report Case: [id number] Authorizing Provider: Darrick Vick Collected: 01/14/2020 11:55 AM Jovi Martinez MD Ordering Location: [facility] OR Received: 01/14/2020 04:17 PM [facility] Pathologist: Kenia Chaney MD Specimen: Explant, RIGHT KNEE TOTAL REVISION A. HARDWARE, REMOVAL, GROSS EXAMINATION ONLY: - HARDWARE IDENTIFIED (SEE GROSS DESCRIPTION). Signing Pathologist Direct Phone Line: [phone] signed by Kenia Chaney MD on 01/15/2020 at 12:16 PM88 300Preop diagnosis: Mechanical loosening of internal left knee prosthetic joint, initial encounter. ExplantReceived fresh labeled with the patient's name, accession number and "right knee total revision" are three pieces of metallic alcantara to alcantara-white orthopedic hardware ranging from 6.4 to 6.5 cm in greatest dimension. The following inscription is identified: [id number] 2.5 PE 10 [id number] gross photograph is taken. No sections are submitted. This case is for gross examination only. PA/pl [facility], Department of Pathology, [address] [place] [address], [place] [address], [facility], [facility], [address] [place] [id number], [facility], [facility], [address] [place] [address], YPLOZ [employer] [id number] 05:02:00 Test Item Value Reference Range Interpretation [...] PATIEN TS. CBC W/PLT COUNT & AUTO [id number] 04:49:00 Test Item Value Reference Range Interpretation [...] PERCENT (BEAKER) (test code = 2801) SPIN/CONCENTRATION [id number] 01:24:00 Test Item Value Reference Range Interpretation Comments CONCENTRATION CHARGED (BEAKER) (test Done code = 2657) RAD, KNEE, 1 OR 2 VIEWS, [id number] 17:25:00AP and lateral views of the prosthetic [...] MDReport Verified Date/Time: 01/14/2020 17:25:10 Reading Location: [facility] ReadingRoom [address] [place], [place] [id number] Notes Date/Time Note Provider Source 2020-01-14 17:49:15-00:00 DARRICK VICK Gladys OPERATIVE/PROCEDURE REPORT AISHWARYA MAX FAC[place] [facility] [place] Billing #: [id number] Room: [place] [address] MR #: [id number] : 1940 DATE OF PROCEDURE: 01/14/2020 SURGEON: Darrick Vick Jr, MD PREOPERATIVE DIAGNOSIS: 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 POSTOPERATIVE DIAGNOSIS: Aseptic loosening of ri ght total knee arthroplasty. PROCEDURE: Revision of both components of right total knee arthroplasty, CPT code 55607. ASSISTANTS: 1. Jorge Hanna. 2. Lior Liu M.D. 3. Neville Torres MS4. ANESTHESIA: Spinal plus adductor canal block. ESTIMATED BLOOD LOSS: Minimal. COMPLICATIONS: None. TOURNIQUET TIME: 2 hours. SPECIMENS REMOVED: Prosthesis as well as bone an d tissue and fluid sent for culture. COMPLICATIONS: None. IMPLANTS: Huang persona revision total knee wit h a size 5 right femoral component with a with 5 mm posteri or and medial augments and a 5 mm distal and lateral augment w ith a size 15 x 135 mm 3 mm offset spline femoral stem. The tibi al tray was a size E tibial tray with 5 mm medial and lateral tibial augments with a 14 x 135 mm 3 mm offset femoral stem and a small trabecular metal tibial central cone. A 14 mm CP S articular surface was used. INDICATIONS: The patient is an 79-year-old woman who underwent a right primary total knee arthroplasty approxim ately 10 years ago at an outside institution. She tolerated tamica t surgery well. However, over the past several months, she has had progressively worsening pain and deformity in he r knee. Her symptoms are worse at the end of the day. She jon s no signs or symptoms of infection. Preoperative infection wo rkup was negative. Radiographs demonstrate aseptic loosen ing of the total knee with subsidence of the tibial tray an d probable loosening of the femoral component. The patient is therefore felt to be indicated for right total knee revisi on to alleviate her pain and improve her function. Preoperativel y, the nature of the procedure, risks, benefits, and alternati ves were discussed in great detail with the patient. She appeared to understand these many issues and desired to proc eed with surgery. All of her questions were answered preo peratively. DESCRIPTION OF PROCEDURE: On the morning of 2019, the patient was brought to the operating room an d following administration of spinal plus adductor canal blo ck by the Anesthesiology Service, the patient was given 2 g of Ancef and 1 g of tranexamic acid. She was placed on the op erating table in a supine position. A tourniquet was placed hi gh on her right thigh. Right lower extremity was then prep ped and draped in the usual sterile fashion. Following time-out to again identify the appropr iate operative site which had been previously marked, her previ ous midline incision was used in its entirety and extended p roximally and distally 1-2 cm. Dissection was carried down to the extensor mechanism. A medial parapatellar arthrotomy was performed. There was clear appearing joint fluid noted. Spe cimens were sent for culture. Subperiosteal medial release w as performed on the proximal tibia. The tibial tray was noted to have subsided inside the medial tibial bone. The knee was brought into extension and a complete synovectomy and de bridement of the suprapatellar pouch and medial and lateral g utters was performed. This allowed mobilization of the orta lla laterally. Attention was first turned to removal of the fe moral component. It appeared to be fixed. However, the re was minimal fixation at the cement interface. The in terface was disrupted using a short oscillating saw followed by thin osteotomes and the femoral component was able to be removed with minimal bone loss. There was some impaction of the distal lateral femoral condyle and there was some bone loss noted on both posterior condyles. The tibia was mobilized with an anterior drawer and external rotation. The tibia l tray was grossly loose and was removed. The remaining jerrod ent mantle was minimal and was also removed and the attention w as first turned to preparation of the tibia. There was a step de fect medially and laterally where the tray had subsided down i nto the tibial rim. This felt to be planned to use this as a st able surface for implantation with tibial augments. The tibia l canal was serially reamed up to a size 14 mm reamer which got an excellent scratch for 135 mm stem. The tibial tr ay was sized and found to correspond best with a size E tray. The offset alignment guide was adjusted to provide excellen t coverage and appropriate rotation of the tibial surface. The pins and rotation were marked. The tray and reamer were r emoved and the offset reamer was used to mill space for the off set stem. Next, attention was turned to placement of media l cone. Given the large metaphyseal defect, the proximal tibia was reamed and then broached for up to a size small cone which had excellent scratch and fit. The trial was assembled with th e tibial tray and coned trial was placed and the tibial tray w as inserted and seated well on the cut surface, which had been f reshened using an oscillating saw initially. Attention was then turned, 5 mm augments had been placed to restore the joint li ne to the appropriate level. Attention was then turned to the femur. The femoral canal was opened using a starter dri ll, flexion and reamed up for 15 x 135 mm stem. The distal femur was sized with the removed component in correspond best wi th a size 5 femur. The distal cutting guide was placed. The medial side cut was freshened and it was felt that a 5 mm au gment would not be needed laterally. This was cut was freshened as well. The four in one finishing guide was then placed. Rot ational and alignment was placed using the offset guide and the guide was pinned into place and the anterior, posterior, a nd chamfer cuts were freshened. The trial was removed. The offse t reamer was used and trial was assembled on the back table w ith 5 mm posterior augments bilaterally and 5 mm distal l ateral augment. The trial was impacted into place and seated we ll. A 12 mm PS tip trial insert was placed and seated well. The knee was examined. The clinical alignment was excellent. The patient could achieve full extension. There was good didier sonable stability with varus and valgus stressing throug hout the entire range of motion. The patella tracked centrally. This was felt to be provisionally acceptable. Therefore, the a forementioned components were opened and assembled on the back table. The knee was thoroughly debrided of all nonviable ap pearing tissues and the bony edges were debrided down to good ca ncellous bone for cementing. The wound was copiously irrigated with several liters of pulsatile lavage normal saline solutio n. Palacos cement was mixed. The tibial cone was impacted i nto place and seated well with good scratch fit. The tibia was then inserted. The articular surface and metaphysis w ere cemented. The diaphysis was placed in a press-fit manner. The femoral component was also cemented into place in a kg lar manner. Care was taken to remove all excess cement from the knee. The cement was allowed to cure with the knee in exte nsion and was soaked with Betadine and tranexamic acid. Once t he cement cured, the knee was examined with the 12 mm inse rt. There was slight increased laxity throughout the range of motion. Therefore, it was felt that a 14 mm CPS insert w ould suffice. The polyethylene insert was opened and inserted and attention was turned to wound closure. The tourniquet was lowered. Hemostasis was achieved. The extensor mechanism was repaired using number #1PDS suture. Subcutaneous tissues were closed in layers using 0 and 2-0 Monocryl. The skin was cl osed with a zip line device. The patient was awakened and ta miki to the recovery room in stable condition. The patient t olerated this procedure well. JENAE/ALEJANDRA /[id number]
--- NOTE | 2022-11-09 08:08 | RAD REPORT ---
EXAM DESCRIPTION: CT - Head Brain Wo Cont - 11/09/2022 8:01 am CLINICAL HISTORY: HEADACHE COMPARISON: Head Brain Wo Cont dated 04/29/2020; Head Brain Wo Cont dated 09/12/2016 TECHNIQUE: All CT scans are performed using dose optimization technique as appropriate and may inclu de automated exposure control or mA/KV adjustment according to patient size. FINDINGS: No intracranial hemorrhage, hydrocephalus or extra-axial fluid collection.No areas of brai n edema or evidence of midline shift. The paranasal sinuses and mastoids are clear. The calvarium is intact. IMPRESSION: No acute intracranial abnormality.
[2022-11-09] MEDS ORDERED: KETOROLAC 30 MG/ML INJ ONE (08:16)
[2022-11-09] MEDS ORDERED: NA CHLORIDE 0.9% 500 ML ONE (08:16)
[2022-11-09] MEDS ORDERED: dexAMETHasone 10 MG/ML VIAL ONE (08:16)
--- NOTE | 2022-11-09 09:55 | ER ---
Nurse's Notes [facility] Name: Bo Boudreaux Age: 82 yrs Sex: Female : 1940 Arrival Date: 11/09/2022 Time: 07:20 Bed 6 Private MD: Diagnosis: Headache Presentation: 11/09 07:49 Chief complaint: Patient states: she has had a headache since last , she has ko1 been to her PCP who started her on steroids and she has not had any relief yet. This morning it was unbearable. Coronavirus screen: At this time, the client does not indicate any symptoms associated with coronavirus-19. Ebola Screen: No symptoms or risks identified at this time. Initial Sepsis Screen: Does the patient meet any 2 criteria? No. Patient's initial sepsis screen is negative. Does the patient have a suspected source of infection? No. Patient's initial sepsis screen is negative. Risk Assessment: Do you want to hurt yourself or someone else? Patient reports no desire to harm self or others. Onset of symptoms is unknown. 07:49 Method Of Arrival: Ambulatory ko1 07:49 Acuity: JORJE 3 ko1 Triage Assessment: 07:52 Headache History: Denies prior headaches. General: Appears in no apparent distress. ko1 uncomfortable, Behavior is calm, cooperative, appropriate for age. Pain: Pain currently is 10 out of 10 on a pain scale. Pain began last week. Pain: Complains of pain in forehead Also complains of no other associated symptoms. Neuro: No deficits noted. Historical: - Allergies: 07:52 PENICILLINS; ko1 - PMHx: 07:52 Hyperlipidemia; Hypertension; ko1 - Immunization history:: Adult Immunizations up to date. - Social history:: Smoking status: Patient denies any tobacco usage or history of. - Family history:: not pertinent. - Hospitalizations: : No recent hospitalization is reported. Screenin:00 [facility] ED Fall Risk Assessment (Adult) History of falling in the last 3 months, ko1 including since admission No falls in past 3 months (0 pts) Confusion or Disorientation No (0 pts) Intoxicated or Sedated No (0 pts) Impaired Gait No (0 pts) Mobility Assist Device Used No (0 pt) Altered Elimination No (0 pt) Score/Fall Risk Level 0 - 2 = Low Risk Oriented to surroundings, Maintained a safe environment, Educated pt \T\ family on fall prevention, incl call for assistance when getting out of bed, Assessed \T\ reinforced patient's understanding of fall precautions, Provided non-skid footwear, Hourly rounding (assess needs \T\ fall precautionary measures) done, Used ambulatory aids as needed (educated on \T\ assisted with), Used gait belt as appropriate. Abuse screen: Denies threats or abuse. Denies injuries from another. Nutritional screening: No deficits noted. Tuberculosis screening: No symptoms or risk factors identified. Assessment: 08:00 General: Appears in no apparent distress. uncomfortable, Behavior is calm, cooperative, ko1 appropriate for age. Pain: Complains of pain in forehead. Neuro: No deficits noted. Cardiovascular: No deficits noted. Respiratory: No deficits noted. GI: No deficits noted. : No deficits noted. EENT: No deficits noted. Derm: No deficits noted. Musculoskeletal: No deficits noted. Vital Signs: 07:45 BP 134 / 70; Pulse 78; Resp 18; Pulse Ox 98% ; ko1 07:49 BP 151 / 76; Pulse 92; Resp 16; Temp 97; Pulse Ox 100% on R/A; Weight 75.75 kg; Height ko1 5 ft. 5 in. ; 08:15 BP 135 / 59; Pulse 74; Resp 18; Pulse Ox 99% ; ko1 08:45 BP 132 / 62; Pulse 77; Resp 18; Pulse Ox 99% ; ko1 09:15 BP 125 / 57; Pulse 71; Resp 16; Pulse Ox 100% ; ko1 09:59 BP 136 / 64; Pulse 76; Resp 16; Pulse Ox 100% ; bp 07:49 Body Mass Index 27.79 (75.75 kg, 165.1 cm) ko1 [place] Coma Score: 09:54 Eye Response: spontaneous(4). Motor Response: obeys commands(6). Verbal Response: rn oriented(5). Total: 15. ED Course: 07:22 Patient arrived in ED. mr 07:23 Kem Barahona MD is Attending Physician. rn 07:28 Feli Bonner, ADRIANA is Primary Nurse. ko1 07:52 Triage completed. ko1 07:52 Arm band placed on right wrist. Patient placed in an exam room, Patient notified of ko1 wait time. 08:00 Patient has correct armband on for positive identification. Bed in low position. Call ko1 light in reach. Side rails up X 1. Pulse ox on. NIBP on. Door closed. Noise minimized. Lights dimmed. Warm blanket given. 08:00 No provider procedures requiring assistance completed. ko1 08:00 Inserted saline lock: 22 gauge in left antecubital area, using aseptic technique. ko1 08:03 CT Head Brain wo Cont In Process Unspecified. EDMS 10:05 IV discontinued, intact, bleeding controlled, No redness/swelling at site. Pressure ko1 dressing applied. Administered Medications: 08:16 Drug: NS 0.9% IV 500 ml Route: IV; Rate: bolus; Site: left antecubital; ko1 10:01 Follow up: IV Status: Completed infusion; IV Intake: 500ml bp 08:16 Drug: Decadron - Dexamethasone IVP 10 mg Route: IVP; Site: left antecubital; ko1 10:00 Follow up: Response: No adverse reaction bp 08:16 Drug: Ketorolac IVP 15 mg Route: IVP; Site: left antecubital; ko1 10:01 Follow up: Response: No adverse reaction bp Medication: 08:00 VIS not applicable for this client. ko1 Intake: 10:01 IV: 500ml; Total: 500ml. bp Outcome: 09:55 Discharge ordered by . rn 10:05 Discharged to home ambulatory. ko1 10:05 Condition: improved 10:05 Discharge instructions given to patient, Instructed on discharge instructions, follow up and referral plans. Demonstrated understanding of instructions, follow-up care. 10:16 Patient left the ED. ko1 Signatures: Dispatcher [employer] EDME GlasgowCriselda Roman, MD MD rn Peltier, Brian RN RN Feli Blackburn RN RN ko1
--- NOTE | 2022-11-09 09:55 | EDPHYS ---
Physician Documentation [facility] Name: Bo Boudreaux Age: 82 yrs Sex: Female : 1940 Arrival Date: 11/09/2022 Time: 07:20 Bed 6 Private MD: ED Physician Kem Barahona HPI: 11/09 08:33 This 82 yrs old Black Female presents to ER via Ambulatory with complaints of Headache. rn 08:33 The patient complains of pain to the forehead. rn 08:33 The patient describes the headache as aching. The patient describes the headache as rn intermittent. Onset: The symptoms/episode began/occurred 1 week(s) ago. Associated signs and symptoms: Pertinent positives: This patient does not have any pertinent positive signs or symptoms associated with a headache. Pertinent negatives: altered mental status, dizziness, fever, nausea, neck stiffness, paresthesias, Photophobia rash, sinus congestion, sinus tenderness, vision changes, vision loss, vomiting, weakness, vertigo. Severity of symptoms: At its worst the pain was moderate, in the emergency department the pain has improved. The symptoms are alleviated by over the counter pain medication, the symptoms are aggravated by nothing. The patient has not experienced similar symptoms in the past. The patient has been recently seen by a physician:. Pt reports headache for 1-2 weeks, seen by Dr. Barrera last week, put on steroids and medication, not really helping. No trauma. no fever. No focal neurological complaint. Reports goes away completely then returns. NO hx of stroke or aneurysm.. Historical: - Allergies: 07:52 PENICILLINS; ko1 - PMHx: 07:52 Hyperlipidemia; Hypertension; ko1 - Immunization history:: Adult Immunizations up to date. - Social history:: Smoking status: Patient denies any tobacco usage or history of. - Family history:: not pertinent. - Hospitalizations: : No recent hospitalization is reported. ROS: 08:33 Constitutional: Negative for fever, chills, and weight loss, Eyes: Negative for injury, rn pain, redness, and discharge, Neck: Negative for injury, pain, and swelling, Cardiovascular: Negative for chest pain, palpitations, and edema, Respiratory: Negative for shortness of breath, cough, wheezing, and pleuritic chest pain, Abdomen/GI: Negative for abdominal pain, nausea, vomiting, diarrhea, and constipation, Back: Negative for injury and pain, MS/Extremity: Negative for injury and deformity, Skin: Negative for injury, rash, and discoloration, Neuro: Negative for weakness, numbness, tingling, and seizure. Exam: 08:33 Constitutional: This is a well developed, well nourished patient who is awake, alert, rn and in no acute distress. Head/Face: Normocephalic, atraumatic. Eyes: Pupils equal round and reactive to light, extra-ocular motions intact. Neck: Supple, full range of motion without nuchal rigidity, or vertebral point tenderness. No Meningismus. Cardiovascular: Regular rate and rhythm. No pulse deficits. Respiratory: No increased work of breathing, no retractions or nasal flaring. Abdomen/GI: Soft, non-tender Skin: Warm, dry MS/ Extremity: Pulses equal, no cyanosis. Neurovascular intact. Full, normal range of motion. Equal circumference. Neuro: Awake and alert, GCS 15, oriented to person, place, time, and situation. Cranial nerves II-XII grossly intact. Motor strength 5/5 in all extremities. Sensory grossly intact. Cerebellar exam normal. Normal gait. Vital Signs: 07:45 BP 134 / 70; Pulse 78; Resp 18; Pulse Ox 98% ; ko1 07:49 BP 151 / 76; Pulse 92; Resp 16; Temp 97; Pulse Ox 100% on R/A; Weight 75.75 kg; Height ko1 5 ft. 5 in. ; 08:15 BP 135 / 59; Pulse 74; Resp 18; Pulse Ox 99% ; ko1 08:45 BP 132 / 62; Pulse 77; Resp 18; Pulse Ox 99% ; ko1 09:15 BP 125 / 57; Pulse 71; Resp 16; Pulse Ox 100% ; ko1 09:59 BP 136 / 64; Pulse 76; Resp 16; Pulse Ox 100% ; bp 07:49 Body Mass Index 27.79 (75.75 kg, 165.1 cm) ko1 [place] Coma Score: 09:54 Eye Response: spontaneous(4). Motor Response: obeys commands(6). Verbal Response: rn oriented(5). Total: 15. MDM: 07:23 Patient medically screened. rn 09:54 Differential diagnosis: hypertensive headache, intracerebral hemorrhage, migraine, rn sinusitis, tension headache, trigeminal neuralgia, vasomotor headache. Data reviewed: vital signs, nurses notes, radiologic studies, CT scan, and as a result, I will discharge patient. Counseling: I had a detailed discussion with the patient and/or guardian regarding: the historical points, exam findings, and any diagnostic results supporting the discharge/admit diagnosis, radiology results, the need for outpatient follow up, to return to the emergency department if symptoms worsen or persist or if there are any questions or concerns that arise at home. Response to treatment: the patient's symptoms have mildly improved after treatment, and as a result, I will discharge patient. Special discussion: I discussed with the patient/guardian in detail that at this point there is no indication for admission to the hospital. It is understood, however, that if the symptoms persist or worsen the patient needs to return immediately for re-evaluation. Based on the history and exam findings, there is no indication for further emergent testing or inpatient evaluation. I discussed with the patient/guardian the need to see the neurologist for further evaluation of the symptoms. I discussed with the patient/guardian the need to see the primary care provider for further evaluation of the symptoms. 11/09 07:36 Order name: CT Head Brain wo Cont; Complete Time: 08:18 rn 11/09 07:54 Order name: IV Start; Complete Time: 08:07 rn Administered Medications: 08:16 Drug: NS 0.9% IV 500 ml Route: IV; Rate: bolus; Site: left antecubital; ko1 10:01 Follow up: IV Status: Completed infusion; IV Intake: 500ml bp 08:16 Drug: Decadron - Dexamethasone IVP 10 mg Route: IVP; Site: left antecubital; ko1 10:00 Follow up: Response: No adverse reaction bp 08:16 Drug: Ketorolac IVP 15 mg Route: IVP; Site: left antecubital; ko1 10:01 Follow up: Response: No adverse reaction bp Disposition Summary: 11/09/22 09:55 Discharge Ordered Location: Home rn Problem: an ongoing problem rn Symptoms: have improved rn Condition: Stable rn Diagnosis - Headache rn Followup: rn - With: Private Physician - When: As needed - Reason: Recheck today's complaints, Re-evaluation by your physician Discharge Instructions: - Discharge Summary Sheet rn - General Headache Without Cause rn Forms: - Medication Reconciliation Form rn - Thank You Letter rn - Antibiotic returned goods repairer - Prescription Opioid Use rn Signatures: Dispatcher [employer] EDMS Kem Barahona MD MD rn Oliver, Kathy, RN RN ko1 Tejinder Romeo RN bp Corrections: (The following items were deleted from the chart) 07:48 07:36 Head C Spine MPR Wo Con+CT.RAD.BRZ ordered. EDMS EDMS
[2022-11-09 10:35] VITALS: TEMP 97
[2022-11-09 10:41] VITALS: O2SAT 100
[2022-11-09 10:42] VITALS: BP 136/64
== END 2022-11-09 10:16 | disposition home or self-care (01) ==
LOC: ER 07:20
DX: R51.9 Headache, unspecified (principal); I10 Essential (primary) hypertension; E78.5 Hyperlipidemia, unspecified; Z88.0 Allergy status to penicillin
CPT/HCPCS: 96361; 70450; 96375; 96374; 99284; J1100; J7040

== ENCOUNTER 2022-12-24 17:00 | Emergency (ER) | payer OTHER ==
--- OUTSIDE RECORDS SUMMARY | 2022-12-24 17:07 | XMS REPORT | Continuity of Care Document ---
:1940 Author Organization [facility] t Address [address] [place] [address] Care Team Providers Name Role Phone Oscar Pedroza Primary Care Physician DARRICK VICK Attending Clinician Unavailable Nurse, [facility] Attending Clinician Unavailable Only, Reid Castillo Test Attending Clinician Unavailable Bel Ramos MD Attending Clinician BEL RAMOS Attending Clinician Unavailable ALEK ZHU Attending Clinician Unavailable Nurse, Adc Pob Immunization Attending Clinician Unavailable Alek Zhu DO Attending Clinician Berny RN, Chantale Ackerman Attending Clinician Unavailable CARLO HERNANDEZ Attending Clinician Unavailable Doctor Unassigned, Marmet Attending Clinician Unavailable Darrick Vick MD Attending Clinician Mar Campos Attending Clinician Gladys Newman Attending Clinician Brendon Matthews Attending Clinician VISIT, NURSE [facility] MAMMO Attending Clinician Unavailable VISIT, NURSE [facility] XRAY Attending Clinician Unavailable José Miguel Matos Attending Clinician Luca Doran Attending Clinician Onofre Rosario Attending Clinician Alan Thrasher Attending Clinician Kevan Vanessa Singleton Attending Clinician VISIT, NURSE BERNARDO WALKER Attending Clinician Unavailable Raymond Willis Attending Clinician [phone] Abdifatah Leiva Attending Clinician DARRICK VICK Admitting Clinician Unavailable Payers Payer Name Policy Type Policy Number Effective Date Expiration Date Telma SHAW O POS [id number] 2018 00:00:00 Problems Condition Condition Condition Status Onset Resolution Last Treating Co mments Source Name Details Category Date Date Treatment Clinician Date 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
Data migrated from [employer] on 12/16/14. Medical Group,[facility] her Neuro, OPID Elizabeth Spasmodic Spasmodic Problem Active 2019-11-27 Memoria torticolli torticolli 12-15 21:25:13 l s s 00:00: Dariel (disorder) (disorder) 00 Active 12/15/2013 Problem 11/27/2019 Data migrated from [employer] on 12/16/14.
Data migrated from [employer] on 12/16/14.
Data migrated from [employer] on 11/07/14. Medical Group,[facility] her Neuro, OPID Elizabeth Edema Edema Problem Active 2019-11-27 Memor ia (finding) (finding) 01-21 21:25:13 l Active 00:00: Dariel 01/21/2013 00 Problem 11/27/2019 Data migrated from [employer] on 11/07/14. Medical Group,[facility] her Neuro, OPID Elizabeth Hypertensi Hypertens Problem Active 2017-06-18 Memoria ve episode ernst 01-21 03:07:06 l (disorder) episode 00:00: Jodi nn (disorder) 00 Active 01/21/2013 Problem 06/18/2017 Data migrated from [employer] on 11/07/14. Medical Group, OPID Elizabeth Hyperlipid Problem Active 2016-07-24 M emoria emia Hyperlipid 01-21 02:33:04 l (disorder) emia 00:00: Berhane n (disorder) 00 Active 01/21/2013 Problem 07/24/2016 Data migrated from [employer] on 12/16/14.
Data migrated from [employer] on 11/07/14. OPID Elizabeth Diverticul Diverticu Problem Active 2019-11-27 Memoria ar disease lar 01-02 21:25:13 l of colon disease of 00:00: Esther hilton (disorder) colon 00 (disorder) Active 01/02/2013 Problem 11/27/2019 Data migrated from [employer] on 11/07/14. Medical Group,[facility] her Neuro, OPID Elizabeth Internal Internal Problem Active 2019-11-27 Memoria hemorrhoid hemorrhoid 01-02 21:25:13 l s s 00:00: [place] (disorder) (disorder) 00 Active 01/02/2013 Problem 11/27/2019 Data migrated from [employer] on 11/07/14. Medical Group,[facility] her Neuro, OPID Elizabeth Osteoarthr Problem Active 2011-062019-11-27 M emoria itis Osteoarthr 08-08 21:25:13 l (disorder) itis 00:00: Berhane n (disorder) 00 Active 06/07/2012 Problem 11/27/2019 Data migrated from [facility] on 11/07/14. 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 21:25:13 l s s Dariel (disorder) (disorder) Active Problem 11/27/2019 Medical Group,[facility] her Neuro, OPID Elizabeth Gallbladde Gallbladd Problem Active 2019-11-27 Memoria r calculus er 21:25:13 l (disorder) calculus Herm hilton (disorder) Active Problem 11/27/2019 Medical Group,[facility] her Neuro, OPID Elizabeth Degenerati Degenerat Problem Active 2019-11-27 Memoria on of ion of 21:25:13 l cervical cervical Berhane ryan interverte interverte bral disc bral disc (disorder) (disorder) Active Problem 11/27/2019 [facility] her Neuro, OPID Elizabeth Drug Drug Problem Active 2019-11-27 Memor ia therapy therapy 21:25:13 l finding finding Dariel (finding) (finding) Active Problem 11/27/2019 Medical Group,[facility] her Neuro, OPID Elizabeth 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 21:25:13 l (disorder) (disorder) He rmann Active Problem 11/27/2019 [facility] her Neuro, OPID Elizabeth Eczema Eczema Problem Active 2019-11-27 Vasile roberto (disorder) (disorder) 21:25:13 l Active [place] Problem 11/27/2019 Medical Group, OPID Elizabeth Finding of Finding Problem Active 2019-11-27 Memoria body mass of body 21:25:13 l index mass index Berhane n (finding) (finding) Active Problem 11/27/2019 [facility] her Neuro, OPID Elizabeth Hypergamma Hypergamm Problem Active 2019-11-27 Memoria globulinem aglobuline 21:25:13 l ia raza Vieira (finding) (finding) Active Problem 11/27/2019 Medical Group,[facility] her Neuro, OPID Elizabeth Hyperglyce Hyperglyc Problem Active 2019-11-27 Memoria raza tijerina 21:25:13 l (disorder) (disorder) He rmann Active Problem 11/27/2019 Medical Group, OPID Elizabeth Lesion of Lesion of Problem Active 2019-11-27 Memoria liver liver 21:25:13 l (finding) (finding) Herm hilton Active Problem 11/27/2019 Medical Group,[facility] her Neuro, OPID Elizabeth Menopause Menopause Problem Active 2019-11-27 Memoria present present 21:25:13 l (finding) (finding) Herm hilton Active Problem 11/27/2019 Medical Group,[facility] her Neuro, OPID Elizabeth 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 Vasile roberto hyperlipid hyperlipid 21:25:13 l emia breezy Vieira (disorder) (disorder) Active Problem 11/27/2019 Medical Group,[facility] her Neuro, OPID Elizabeth 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 21:25:13 l lung lung Dariel (finding) (finding) Active Problem 11/27/2019 Medical Group,[facility] her Neuro, OPID Elizabeth Neck pain Neck pain Problem Active 2019-11-27 Memoria (finding) (finding) 21:25:13 l Active [place] Problem 11/27/2019 Medical Group,[facility] her Neuro, OPID Elizabeth Osteoporos Osteoporo Problem Active 2019-11-27 Memoria is sis 21:25:13 l (disorder) (disorder) He rmann Active Problem 11/27/2019 Medical Group,[facility] her Neuro, OPID Elizabeth Atrophic Atrophic Problem Active 2019-11-27 Memoria vaginitis vaginitis 21:25:13 l (disorder) (disorder) He rmann Active Problem 11/27/2019 Medical Group,[facility] her Neuro, OPID Elizabeth Hypertensi Hypertens Problem Active 2019-11-27 Memoria ve ernst 21:25:13 l disorder, disorder, Herm hilton systemic systemic arterial arterial (disorder) (disorder) Active Problem 11/27/2019 Medical Group Osteopenia Osteopeni Problem Active 2017-06-18 Memoria (disorder) a 03:07:06 l (disorder) Berhane ryan Active Problem 06/18/2017 Medical Group, OPID Elizabeth Body mass Body mass Problem Active 2016-07-24 Memoria index index 02:33:04 l index index [place] 25-29 - 25-29 - overweight overweight (finding) (finding) Active Problem 07/24/2016 OPID Elizabeth Right Right Problem Active 2016-07-10 Memor ia lower lower 03:43:11 l quadrant quadrant Berhane ryan pain pain (finding) (finding) Active Problem 07/10/2016 OPID Elizabeth History of Past Illness Condition Condition Condition Status Onset Resolution Last Treating Co mments Source Name Details Category Date Date Treatment Clinician Date Other Other Problem 2018-2019-01-29 2019-01-29 M emoria abnormal abnormal 07-17 11:41:30 11:41:30 l and and 06:20: Dariel inconclusi inconclusi 36 ve ve findings findings on on diagnostic diagnostic imaging of imaging of breast breast 07/17/2018 01/29/2019 OPID Elizabeth Asymptomat Asymptoma Problem 2018-2019-01-26 2019-01-26 Memoria ic tic 07-08 12:07:51 12:07:51 l menopausal menopausal 16:48: He ann state state 00 07/08/2018 01/26/2019 Medical Group Postmenopa Postmenop Problem 2018-2019-01-26 2019-01-26 Memoria usal ausal 07-08 12:07:51 12:07:51 l atrophic atrophic 16:48: Berhane ryan vaginitis vaginitis 00 07/08/2018 01/26/2019 Medical Group Leukoplaki Leukoplak Problem 2018-2019-01-26 2019-01-26 Memoria a of vulva ia of 07-08 12:07:51 12:07:51 l vulva 16:48: [place] 07/08/2018 00 01/26/2019 Medical Group Age-relate Age-relat [...] [facility] adverse [facility] reaction 00 Center s PENICILL Allergy Active Hives [facility] NO KNOWN Drug Active Univers ALLERGIE Class ity of [facility] penicill penicill Active Memori a ins<sup> ins<sup> l 1</sup> 1</sup> Dariel dicyclom dicyclom Active Memori a ine<sup> ine<sup> l 2</sup> 2</sup> Dariel penicill penicill Active Memori a ins<sup> ins<sup> l 2</sup> 2</sup> Dariel Social History Social Habit Start Date Stop Date Quantity Comments Source History SDOH [facility] Alcohol Std Medical Cente r Drinks History SDNH [facility] Alcohol Binge Medical Carina ter History SDNH [facility] Alcohol Comment Medical C enter Exposure to 2021-10-25 2021-11-04 Not sure University SARS-CoV-2 00:00:00 11:31:00 [facility] (event) [place] Alcohol intake 2020-01-14 2020-01-[address] [facility] 00:00:00 00:00:00 non-drinker of Medical Ce nter alcohol (finding) History SDOH 2020-01-07 2020-01-[address] [facility] Alcohol Frequency 00:00:00 00:00:00 Medical Center Tobacco use and 2020-01-07 2020-01-[address] Sm[address]eless [address] [facility] exposure 00:00:00 00:00:00 non-user Medical Center Social History 2018-08-01 2018-08-01 [facility] cary 14:27:23 14:27:23 Sex Assigned At [address] Kiersten kes 00:00:00 00:00:00 Medical Center Smoking Status Start Date Stop Date Source Unknown if ever smoked [facility] Never smoked tobacco [facility] Medications Ordered Filled Start Stop Current Ordering Indication Dosage Frequency Signature Comments Components Source Medication Medication Date Date Medication? Clinician (SIG) Name Name atorvastati 2020-0 Yes 20mg QD Take 20 [...] 10:54: mouth Medical 600 mg 21 daily. [place] calcium (1,500 mg) Tab levocetiriz 2020-[address] (XYZAL[facility] 7-06 [facility] 5 MG tablet 00:00: Medica l 00 Center levocetiriz 2020-[address] [facility] (XYZAL) 7-06 [facility] 5 MG tablet 00:00: Medica l 00 [place] levocetiriz 2020-[address] [facility] (XYZAL) 7-06 [facility] 5 MG tablet 00:00: Medica l 00 Center bimatoprost 2020-0 Yes INSTILL 1 C HI [...] Yes PRN [facility]09 [facility] (KENALOG) 00:00: Medical 0.1 % 00 [place] topical cream triamcinolo 2020-[address] [facility]09 [facility] (KENALOG) 00:00: Medical 0.1 % 00 Center topical cream triamcinolo 2020-[address] [facility] 6-09 [facility] (KENALOG) 00:00: Medical 0.1 % 00 Center topical cream amLODIPine 2020-0 Yes TAKE 1 [...] tab, H ermann 30 Refill(s) 4, Pharmacy: [facility] #[id number] atorvastati 2020-0 Yes = 1 tab, Me moria n 20 mg 4-20 PO, Daily, l oral tablet 17:28: # 90 tab, H ermann 30 Refill(s) 4, Pharmacy: [id number] atorvastati 2020-0 Yes = 1 tab, Me moria n 20 mg 4-20 PO, Daily, l oral tablet 17:28: # 90 tab, H ermann 30 Refill(s) 4, Pharmacy: [facility] #[id number] atorvastati 2020-0 Yes = 1 tab, Me moria n 20 mg 4-20 PO, Daily, l oral tablet 17:28: # 90 tab, H ermann 30 Refill(s) 4, [facility]acy: [id number] Dextrometho 2020-0 Yes 10 mL, PO, Memoria rphan 2-11 Q4H, # 120 l Hydrobromid 22:52: mL, 0 Jodi nn e 1 MG/ML / 00 Refill(s), [facility] Pharmacy: 10 MG/ML [id number] Solution Dextrometho 2020-0 Yes 10 mL, PO, Memoria rphan 2-11 Q4H, # 120 l Hydrobromid 22:52: mL, 0 Jodi nn e 1 MG/ML / 00 Refill(s), [facility] Pharmacy: 10 MG/ML [id number] Solution Dextrometho 2020-0 Yes 10 mL, PO, Memoria rphan 2-11 Q4H, # 120 l Hydrobromid 22:52: mL, 0 Jodi nn e 1 MG/ML / 00 Refill(s), [facility] Pharmacy: 10 MG/ML [id number] Solution Dextrometho 2020-0 Yes 10 mL, PO, Memoria rphan 2-11 Q4H, # 120 l Hydrobromid 22:52: mL, 0 Jodi nn e 1 MG/ML / 00 Refill(s), [facility] Pharmacy: 10 MG/ML [id number] Solution azithromyci 2020-0 Yes 500 mg = 1 Memoria n 500 mg 1-07 tab, PO, l oral tablet 20:36: Daily, X 5 [place] 00 day, # 5 tab, 0 Refill(s), [facility]acy: [id number] azithromyci 2020-0 Yes 500 mg = 1 Memoria n 500 mg 1-07 tab, PO, l oral tablet 20:36: Daily, X 5 [place] 00 day, # 5 tab, 0 Refill(s), [facility]acy: [id number] azithromyci Yes 500 mg = 1 Memoria n 500 mg 1-07 tab, PO, l oral tablet 20:36: Daily, X 5 Dariel day, # 5 tab, 0 Refill(s), [id number] azithromyci Yes 500 mg = 1 Memoria n 500 mg 1-07 tab, PO, l oral tablet 20:36: Daily, X 5 Dariel day, # 5 tab, 0 Refill(s), [id number] omeprazole 2018-06 Yes 20 mg = [...] tab, PO, l MG Oral 16:30: Q12H [place] Tablet 00 Metronidazo 2018-06 Yes 500 mg [...] tab, PO, l MG Oral 16:30: Q12H [place] Tablet 00 Metronidazo 2018-06 Yes 500 mg [...] tab, PO, l MG Oral 16:30: Q12H [place] Tablet 00 Metronidazo 2018-06 Yes 500 mg [...] 100 mg = 1 Memoria hyclate 100 -27 tab, PO, l MG Oral 16:30: Q12H [place] Tablet 00 Metronidazo 2018-06 Yes 500 mg [...] Capsule 30 cap, 0 [Tylenol] Refill(s), Pharmacy: [facility] #[id number] Acetaminoph 2018-06 Yes 325 mg = 1 Memoria en 325 MG 0-17 cap, PO, l Oral 18:46: TID, # 21 Dariel Capsule 30 cap, 0 [Tylenol] Refill(s), Pharmacy: [facility] #[id number] Acetaminoph 2018-06 Yes 325 mg = 1 Memoria en 325 MG 0-17 cap, PO, l Oral 18:46: TID, # 21 Dariel Capsule 30 cap, 0 [Tylenol] Refill(s), [id number] Acetaminoph 2018-06 Yes 325 mg = 1 Memoria en 325 MG 0-17 cap, PO, l Oral 18:46: TID, # 21 [place] Capsule 30 cap, 0 [Tylenol] Refill(s), [id number]-06 Yes 500 mg = 1 Memoria n 500 mg 0-17 tab, PO, l oral tablet 18:46: Daily, X 5 [place] 06 day, # 5 tab, 0 Refill(s), [id number] 2018-06 Yes 500 mg = 1 Memoria n 500 mg 0-17 tab, PO, l oral tablet 18:46: Daily, X 5 [place] 06 day, # 5 tab, 0 Refill(s), [id number] 2018-06 Yes 500 mg = 1 Memoria n 500 mg 0-17 tab, PO, l oral tablet 18:46: Daily, X 5 [place] 06 day, # 5 tab, 0 Refill(s), Pharmacy: [facility][id number] 2018-06 Yes 500 mg = 1 Memoria n 500 mg 0-17 tab, PO, l oral tablet 18:46: Daily, X 5 [place] 06 day, # 5 tab, 0 Refill(s), [id number] Fluticasone 2018-06 Yes 1 spray, Me moria propionate 0-17 NASAL, l 0.05 18:45: BID, # 16 Dariel MG/ACTUAT 12 gm, 0 Metered Refill(s), Dose Nasal Pharmacy: [facility] #[id number] Fluticasone 2018- Yes 1 spray, Me moria propionate 0-17 NASAL, l 0.05 18:45: BID, # 16 Dariel MG/ACTUAT 12 gm, 0 Metered Refill(s), Dose Nasal Pharmacy: [facility] [[facility] #[id number] Fluticasone 2018-06 Yes 1 spray, Me moria propionate 0-17 NASAL, l 0.05 18:45: BID, # 16 Dariel MG/ACTUAT 12 gm, 0 Metered Refill(s), Dose Nasal Pharmacy: [facility] #[id number] Fluticasone 2018-06 Yes 1 spray, Me moria propionate 0-17 NASAL, l 0.05 18:45: BID, # 16 Dariel MG/ACTUAT 12 gm, 0 Metered Refill(s), Dose Nasal Pharmacy: [facility] [[facility] #[id number] Fluticasone 2018-06 No 1 spray, Me moria propionate 0-17 NASAL, l 0.05 18:38: BID, # 16 [place] MG/ACTUAT 00 gm, 0 Metered Refill(s), Dose Nasal Pharmacy: [facility] [[facility] #[id number] Acetaminoph 2018-06 No 325 mg = 1 Memoria en 325 MG 0-17 cap, PO, l Oral 18:38: TID, # 21 Dariel Capsule 00 cap, 0 [Tylenol] Refill(s), Pharmacy: [facility] #[id number] azithromyci 2018-06 No 500 mg = 1 Memoria n 500 mg 0-17 tab, PO, l oral tablet 18:38: Daily, X 5 Dariel 00 day, # 5 tab, 0 Refill(s), Pharmacy: [facility][id number] Fluticasone 2018-06 No 1 spray, Me moria propionate 0-17 NASAL, l 0.05 18:38: BID, # 16 [place] MG/ACTUAT 00 gm, 0 Metered Refill(s), Dose Nasal Pharmacy: [facility] [[facility] #[id number] Acetaminoph 2018-06 No 325 mg = 1 Memoria en 325 MG 0-17 cap, PO, l Oral 18:38: TID, # 21 Dariel Capsule 00 cap, 0 [Tylenol] Refill(s), Pharmacy: [facility] #[id number] azithromyci 2018-06 No 500 mg = 1 Memoria n 500 mg 0-17 tab, PO, l oral tablet 18:38: Daily, X 5 Dariel 00 day, # 5 tab, 0 Refill(s), Pharmacy: [facility][id number] Fluticasone 2018-06 No 1 spray, Me moria propionate 0-17 NASAL, l 0.05 18:38: BID, # 16 Dariel MG/ACTUAT 00 gm, 0 Metered Refill(s), Dose Nasal Pharmacy: [facility] [[facility] #[id number] Acetaminoph 2018-06 No 325 mg = 1 Memoria en 325 MG 0-17 cap, PO, l Oral 18:38: TID, # 21 Dariel Capsule 00 cap, 0 [Tylenol] Refill(s), Pharmacy: [id number] 2018-06 No 500 mg = 1 Memoria n 500 mg 0-17 tab, PO, l oral tablet 18:38: Daily, X 5 Dariel 00 day, # 5 tab, 0 Refill(s), Pharmacy: [facility] #[id number] Fluticasone 2018-06 No 1 spray, Me moria propionate 0-17 NASAL, l 0.05 18:38: BID, # 16 [place] MG/ACTUAT 00 gm, 0 Metered Refill(s), Dose Nasal Pharmacy: [facility] [[facility] #[id number] Acetamino 2018-06 No 325 mg = 1 Memoria en 325 MG 0-17 cap, PO, l Oral 18:38: TID, # 21 Dariel Capsule 00 cap, 0 [Tylenol] Refill(s), Pharmacy: [facility] #[id number] azithromyci 2018-06 No 500 mg = 1 Memoria n 500 mg 0-17 tab, PO, l oral tablet 18:38: Daily, X 5 [place] 00 day, # 5 tab, 0 Refill(s), Pharmacy: [facility] #[id number] Levofloxaci 2019- Yes 500 mg = 1 Memoria n 500 MG 7-24 tab, PO, l Oral Tablet 13:38: Q24H, X 7 H ermann [Levaquin] 00 day, # 7 tab, 0 Refill(s), Pharmacy: [id number] Levofloxaci 2018- Yes 500 mg = 1 Memoria n 500 MG 7-24 tab, PO, l Oral Tablet 13:38: Q24H, X 7 H ermann [Levaquin] 00 day, # 7 tab, 0 Refill(s), Pharmacy: [facility] #[id number] Levofloxaci 2018- Yes 500 mg = 1 Memoria n 500 MG 7-24 tab, PO, l Oral Tablet 13:38: Q24H, X 7 H ermann [Levaquin] 00 day, # 7 tab, 0 Refill(s), [id number] Levofloxaci Yes 500 mg = 1 Memoria n 500 MG 7-24 tab, PO, l Oral Tablet 13:38: Q24H, X 7 H ermann [Levaquin] 00 day, # 7 tab, 0 Refill(s), [id number] Levofloxaci No 500 mg = 1 Memoria n 500 MG 1-29 tab, PO, l Oral Tablet 14:52: Q24H, X 7 H ermann [Levaquin] 00 day, # 7 tab, 0 Refill(s), [id number] Levofloxaci No 500 mg = 1 Memoria n 500 MG 1-29 tab, PO, l Oral Tablet 14:52: Q24H, X 7 H ermann [Levaquin] 00 day, # 7 tab, 0 Refill(s), [id number] Levofloxaci No 500 mg = 1 Memoria n 500 MG 1-29 tab, PO, l Oral Tablet 14:52: Q24H, X 7 H ermann [Levaquin] 00 day, # 7 tab, 0 Refill(s), [id number] Levofloxaci No 500 mg = 1 Memoria n 500 MG 1-29 tab, PO, l Oral Tablet 14:52: Q24H, X 7 H ermann [Levaquin] 00 day, # 7 tab, 0 Refill(s), Pharmacy: [facility] #[id number] Levofloxaci 2017-06 No 500 mg = 1 Memoria n 500 MG 0-18 tab, PO, l Oral Tablet 18:59: Q24H, X 10 Dariel [Levaquin] 00 day, # 10 tab, 0 Refill(s), [id number] Levofloxaci 2017-06 No 500 mg = 1 Memoria n 500 MG 0-18 tab, PO, l Oral Tablet 18:59: Q24H, X 10 Dariel [Levaquin] 00 day, # 10 tab, 0 Refill(s), Pharmacy: [facility] #[id number] Levofloxaci 2017-06 No 500 mg = 1 Memoria n 500 MG 0-18 tab, PO, l Oral Tablet 18:59: Q24H, X 10 [place] [Levaquin] 00 day, # 10 tab, 0 Refill(s), Pharmacy: [facility] #[id number] Levofloxaci 2017-06 No 500 mg = 1 Memoria n 500 MG 0-18 tab, PO, l Oral Tablet 18:59: Q24H, X 10 Dariel [Levaquin] 00 day, # 10 tab, 0 Refill(s), Pharmacy: [facility] #[id number] Codeine No See Memoria Phosphate 2 [...] Instructio l MG/ML / 21:35: ns, PRN [place] Guaifenesin 53 cough, 20 MG/ML 5-10 mL PO Oral Q6H prn Solution cough, # [Cheratussi 240 mL, 1 n] Refill(s) valacyclovi No 1 gm = 1 Me moria r 1000 MG 9-25 tab, PO, l Oral Tablet 21:35: ONCE, # 1 H ermann [Valtrex] 00 tab, 0 Refill(s), [id number] valacyclovi No 1 gm = 1 Me moria r 1000 MG 9-25 tab, PO, l Oral Tablet 21:35: ONCE, # 1 H ermann [Valtrex] 00 tab, 0 Refill(s), Pharmacy: [facility] #[id number] valacyclovi No 1 gm = 1 Me moria r 1000 MG 9-25 tab, PO, l Oral Tablet 21:35: ONCE, # 1 H ermann [Valtrex] 00 tab, 0 Refill(s), [id number] valacyclovi No 1 gm = 1 Me moria r 1000 MG 9-25 tab, PO, l Oral Tablet 21:35: ONCE, # 1 H ermann [Valtrex] 00 tab, 0 Refill(s), [id number] Hydrocortis No 1 appl, Mem oria one 25 9-05 TOP, BID, l MG/ML 20:06: X 14 day, Dariel Topical 00 # 30 gm, 0 Cream Refill(s), [id number] Hydrocortis No 1 appl, Mem oria one 25 9-05 TOP, BID, l MG/ML 20:06: X 14 day, [place] Topical 00 # 30 gm, 0 Cream Refill(s), [id number] Hydrocortis No 1 appl, Mem oria one 25 9-05 TOP, BID, l MG/ML 20:06: X 14 day, Dariel Topical 00 # 30 gm, 0 Cream Refill(s), [id number] Hydrocortis No 1 appl, Mem oria one 25 9-05 TOP, BID, l MG/ML 20:06: X 14 day, Dariel Topical 00 # 30 gm, 0 Cream Refill(s), [id number] baclofen 10 Yes See Memori a mg oral 4-16 Instructio l tablet 17:59: ns, # 90 [place] 43 tab, TAKE 1 TABLET BY MOUTH 3 TIMES A DAY NEEDED FOR SPASMS, Pharmacy: [facility] #[id number] baclofen 10 Yes See Memori a mg oral 4-16 Instructio l tablet 17:59: ns, # 90 [place] 43 tab, TAKE 1 TABLET BY MOUTH 3 TIMES A DAY NEEDED FOR SPASMS, Pharmacy: [facility] #[id number] baclofen 10 Yes See Memori a mg oral 4-16 Instructio l tablet 17:59: ns, # 90 [place] 43 tab, TAKE 1 TABLET BY MOUTH 3 TIMES A DAY NEEDED FOR SPASMS, Pharmacy: [facility] #[id number] baclofen 10 Yes See [facility] a mg oral 4-16 Instructio l tablet 17:59: ns, # 90 [place] 43 tab, TAKE 1 TABLET BY MOUTH 3 TIMES A DAY NEEDED FOR SPASMS, Pharmacy: [facility] #[id number] baclofen 10 No See Memori a mg oral 3-13 Instructio l tablet 19:36: ns, # 90 [place] 08 tab, TAKE 1 TABLET BY MOUTH 3 TIMES A DAY NEEDED FOR SPASMS, Pharmacy: [facility] #[id number] baclofen 10 No See Mem[facility] a mg oral 3-13 Instructio l tablet 19:36: ns, # 90 [place] 08 tab, TAKE 1 TABLET BY MOUTH 3 TIMES A DAY NEEDED FOR SPASMS, Pharmacy: [facility] #[id number] baclofen 10 No See [facility] a mg oral 3-13 Instructio l tablet 19:36: ns, # 90 [place] 08 tab, TAKE 1 TABLET BY MOUTH 3 TIMES A DAY NEEDED FOR SPASMS, Pharmacy: [facility] #[id number] baclofen 10 No See [facility] a mg oral 3-13 Instructio l tablet 19:36: ns, # 90 [place] 08 tab, TAKE 1 TABLET BY MOUTH 3 TIMES A DAY NEEDED FOR SPASMS, Pharmacy: [facility] #[id number] tramadol 2017-0 No 50 mg = 1 Vasile roberto hydrochlori 2-23 tab, PO, l de 50 MG 20:52: BID, X 10 [place] Oral Tablet 00 day, # 10 tab, 0 Refill(s) tramadol 2017-0 No 50 mg = 1 Vasile roberto hydrochlori 2-23 tab, PO, l de 50 MG 20:52: BID, X 10 [place] Oral Tablet 00 day, # 10 tab, 0 Refill(s) tramadol 2017-0 No 50 mg = 1 Vasile roberto [...] Spasms, # 90 tab, 0 Refill(s), Pharmacy: [facility] #[id number] baclofen 10 No 10 mg = 1 M emoria mg oral 2-14 tab, PO, l tablet 20:01: TID, PRN [place] 00 Spasms, # 90 tab, 0 Refill(s), Pharmacy: [facility] #[id number] baclofen No 10 mg = 1 M emoria mg oral 2-14 tab, PO, l tablet 20:01: TID, PRN Dariel 00 Spasms, # 90 tab, 0 Refill(s), Pharmacy: [facility] #[id number] baclofen No 10 mg = 1 M emoria mg oral 2-14 tab, PO, l tablet 20:01: TID, PRN [place] 00 Spasms, # 90 tab, 0 Refill(s), Pharmacy: [facility] #[id number] Triamcinolo Yes See Memori a ne 1-18 Instructio l Acetonide 1 15:48: ns, apply H ermann MG/ML 00 small Topical amount to Cream affected area twice/day until symptoms resolved., # 60 gm, 1 Refill(s), Pharmacy: [facility] #[id number] Triamcinolo Yes See Memori a ne 1-18 Instructio l Acetonide 1 15:48: ns, apply H ermann MG/ML 00 small Topical amount to Cream affected area twice/day until symptoms resolved., # 60 gm, 1 Refill(s), Pharmacy: [facility] #[id number] Triamcinolo Yes See Memori a ne 1-18 Instructio l Acetonide 1 15:48: ns, apply H ermann MG/ML 00 small Topical amount to Cream affected area twice/day until symptoms resolved., # 60 gm, 1 Refill(s), Pharmacy: [facility] #[id number] Triamcinolo 2018-0 Yes John britton -18 Instructio l Acetonide 1 15:48: ns, apply H ermann MG/ML 00 small Topical amount to Cream affected area twice/day until symptoms resolved., # 60 gm, 1 Refill(s), Pharmacy: [facility] #[id number] atorvastati No 20 mg = 1 M emoria n 20 mg 1-11 tab, PO, l oral tablet 19:41: Daily, # He rmann 00 90 tab, 0 Refill(s), Pharmacy: [facility] #[id number] atorvastati No 20 mg = 1 M emoria n 20 mg 1-11 tab, PO, l oral tablet 19:41: Daily, # [place] r[place] 00 90 tab, 0 Refill(s), Pharmacy: [facility] #[id number] atorvastati No 20 mg = 1 M emoria n 20 mg 1-11 tab, PO, l oral tablet 19:41: Daily, # [place] r[place] 00 90 tab, 0 Refill(s), Pharmacy: [facility] #[id number] atorvastati No 20 mg = 1 M emoria n 20 mg 1-11 tab, PO, l oral tablet 19:41: Daily, # He r[place] 00 90 tab, 0 Refill(s), Pharmacy: [facility] #[id number] atorvastati 2018 Yes 20 mg = 1 M emoria n 20 mg 1-11 tab, PO, l oral tablet 19:40: Daily, # He rmann 15 90 tab, 5 Refill(s), Pharmacy: [facility] #[id number] atorvastati 2018 Yes 20 mg = 1 M emoria n 20 mg 1-11 tab, PO, l oral tablet 19:40: Daily, # He rmann 15 90 tab, 5 Refill(s), Pharmacy: [facility] #[id number] atorvastati 2018 Yes 20 mg = 1 M emoria n 20 mg 1-11 tab, PO, l oral tablet 19:40: Daily, # He rmann 15 90 tab, 5 Refill(s), Pharmacy: [facility] #[id number] atorvastati 2018-0 Yes 20 mg = 1 M emoria n 20 mg 1-11 tab, PO, l oral tablet 19:40: Daily, # He rmann 15 90 tab, 5 Refill(s), [id number] amLODIPine 2018-0 Yes See Memoria 5 mg oral 1-04 Instructio l tablet 18:47: ns, TAKE 1 Jodi nn 05 TABLET BY MOUTH DAILY, # 90 tab, 1 Refill(s), [id number] amLODIPine 2017-0 Yes See Memoria 5 mg oral 1-04 Instructio l tablet 18:47: ns, TAKE 1 Jodi nn 05 TABLET BY MOUTH DAILY, # 90 tab, 1 Refill(s), [id number] amLODIPine 2017-0 Yes See [facility] 5 mg oral 1-04 Instructio l tablet 18:47: ns, TAKE 1 Jodi nn 05 TABLET BY MOUTH DAILY, # 90 tab, 1 Refill(s), [id number] amLODIPine 2017-0 Yes See [facility] 5 mg oral 1-04 Instructio l tablet 18:47: ns, TAKE 1 Jodi nn 05 TABLET BY MOUTH DAILY, # 90 tab, 1 Refill(s), [id number] levofloxaci 2018-0 Yes 500 mg = 1 Memoria n 500 mg 1-04 tab, PO, l oral tablet 14:44: Daily, X He rmann 00 10 day, # 10 tab, 0 Refill(s), [id number], [place] the Zithromax order levofloxaci 2018-0 Yes 500 mg = 1 Memoria n 500 mg 1-04 tab, PO, l oral tablet 14:44: Daily, X [place] r[place] 00 10 day, # 10 tab, 0 Refill(s), [id number], [place] the Zithromax order levofloxaci 2018-0 Yes 500 mg = 1 Memoria n 500 mg 1-04 tab, PO, l oral tablet 14:44: Daily, X [place] r[place] 00 10 day, # 10 tab, 0 Refill(s), Pharmacy: [facility] #[id number], [place] the Zithromax order levofloxaci Yes 500 mg = 1 Memoria n 500 mg 1-04 tab, PO, l oral tablet 14:44: Daily, X He r[place] 00 10 day, # 10 tab, 0 Refill(s), Pharmacy: [facility] #[id number], [place] the Zithromax order Codeine Yes See Memoria Phosphate 2 1-04 Instructio l MG/ML / 14:40: ns, PRN Dariel Guaifenesin 00 cough, 20 MG/ML 5-10 mL PO Oral Q6H prn Solution cough, # [Cheratussi 240 mL, 1 n] Refill(s) Codeine Yes See Memoria Phosphate 2 1-04 Instructio l MG/ML / 14:40: ns, PRN [place] Guaifenesin 00 cough, 20 MG/ML 5-10 mL [...] Instructio l MG/ML / 14:40: ns, PRN [place] Guaifenesin 00 cough, 20 MG/ML 5-10 mL [...] day, # 6 tab, 0 Refill(s), Pharmacy: [facility] #[id number] {6 No See Memoria (Azithromyc 1-04 Instructio l in 250 MG 14:39: ns, Take 2 [place] r[place] Oral Tablet 00 tablets by [Zithromax] mouth the ) } Pack first day [Z-PAKS] then 1 tablet by mouth days 2-5., X 5 day, # 6 tab, 0 Refill(s), Pharmacy: [facility] #[id number] {6 No See Memoria (Azithromyc 1-04 Instructio l in 250 MG 14:39: ns, Take 2 [place] r[place] Oral Tablet 00 tablets by [Zithromax] mouth the ) } Pack first day [Z-PAKS] then 1 tablet by mouth days 2-5., X 5 day, # 6 tab, 0 Refill(s), Pharmacy: [facility] #[id number] {6 No See Memoria (Azithromyc 1-04 Instructio l in 250 MG 14:39: ns, Take 2 He rmann Oral Tablet 00 tablets by [Zithromax] mouth the ) } Pack first day [Z-PAKS] then 1 tablet by mouth days 2-5., X 5 day, # 6 tab, 0 Refill(s), Pharmacy: [facility] #[id number] Immunizations Ordered Filled Immunization Date Status Comments [facility] Immunization Name Name SARS-COV-2 COVID-19 2021-03-29 Completed [facility] PFIZER VACCINE 00:00:00 [facility] SARS-COV-2 COVID-19 2021-03-29 Completed [facility] of PFIZER VACCINE 00:00:00 [facility] SARS-COV-2 COVID-19 2021-03-29 Completed [facility] of PFIZER VACCINE 00:00:00 [facility] SARS-COV-2 COVID-19 2020-08-23 Completed [facility] of PFIZER VACCINE 00:00:00 [facility] SARS-COV-2 COVID-19 2020-08-23 Completed [facility] of PFIZER VACCINE 00:00:00 [facility] SARS-COV-2 COVID-19 2020-08-23 Completed [facility] of PFIZER VACCINE 00:00:00 [facility] SARS-COV-2 COVID-19 2020-08-23 Completed [facility] of PFIZER VACCINE 00:00:00 [facility] SARS-COV-2 COVID-19 2020-08-23 Completed [facility] of PFIZER VACCINE 00:00:00 [facility] SARS-COV-2 COVID-19 2020-08-23 Completed [facility] of PFIZER VACCINE 00:00:00 [facility] SARS-COV-2 COVID-19 2020-08-02 Completed [facility] of PFIZER VACCINE 00:00:00 [facility] SARS-COV-2 COVID-19 2020-08-02 Completed [facility] of PFIZER VACCINE 00:00:00 [facility] SARS-COV-2 COVID-19 2020-08-02 Completed [facility] of PFIZER VACCINE 00:00:00 [facility] SARS-COV-2 COVID-19 2020-08-02 Completed [facility] of PFIZER VACCINE 00:00:00 [facility] SARS-COV-2 COVID-19 2020-08-02 Completed [facility] of PFIZER VACCINE 00:00:00 [facility] SARS-COV-2 COVID-19 2020-08-02 Completed [facility] of PFIZER VACCINE 00:00:00 [facility] influenza virus 2019-02-27 Completed [facility] vaccine, 15:54:00 inactivated influenza virus 2019-02-27 Completed [facility] [place] vaccine, 15:54:00 inactivated influenza virus 2019-02-27 Completed [facility] vaccine, 15:54:00 inactivated influenza virus 2019-02-27 Completed [facility] vaccine, 15:54:00 inactivated pneumococcal 2018-03-05 Completed [facility] hawk 13-valent vaccine 21:02:00 pneumococcal 2018-03-05 Completed [facility] hawk 13-valent vaccine 21:02:00 pneumococcal 2018-03-05 Completed [facility] hawk 13-valent vaccine 21:02:00 pneumococcal 2018-03-05 Completed [facility] hawk 13-valent vaccine 21:02:00 influenza virus 2018-03-05 Completed [facility] vaccine, 21:01:00 inactivated influenza virus 2018-03-05 Completed [facility] vaccine, 21:01:00 inactivated influenza virus 2018-03-05 Completed [facility] vaccine, 21:01:00 inactivated influenza virus 2018-03-05 Completed [facility] [place] vaccine, 21:01:00 inactivated influenza virus 2017-04-27 Completed [facility] vaccine, 16:16:00 inactivated influenza virus 2017-04-27 Completed [facility] vaccine, 16:16:00 inactivated influenza virus 2017-04-27 Completed [facility] [place] vaccine, 16:16:00 inactivated influenza virus 2017-04-27 Completed [facility] vaccine, 16:16:00 inactivated influenza virus 2016-02-07 Completed [facility] [place] vaccine, 18:11:00 inactivated influenza virus 2016-02-07 Completed [facility] [place] vaccine, 18:11:00 inactivated influenza virus 2016-02-07 Completed [facility] [place] vaccine, 18:11:00 inactivated influenza virus 2016-02-07 Completed [facility] [place] vaccine, 18:11:00 inactivated influenza virus 2015-04-21 Completed [facility] [place] vaccine, 22:30:00 inactivated influenza virus 2015-04-21 Completed [facility] [place] vaccine, 22:30:00 inactivated influenza virus 2015-04-21 Completed [facility] [place] vaccine, 22:30:00 inactivated influenza virus 2015-04-21 Completed [facility] vaccine, 22:30:00 inactivated diphtheria/pertussi 2014-04-23 Completed [facility] naomie Vieira s, acel/tetanus 06:00:00 adult<sup>3</sup> influenza virus 2014-04-23 Completed [facility] [place] vaccine, 06:00:00 inactivated<sup>1</ sup> diphtheria/pertussi 2014-04-23 Completed [facility] naomie Vieira s, acel/tetanus 06:00:00 adult<sup>1</sup> influenza virus 2014-04-23 Completed [facility] [place] vaccine, 06:00:00 inactivated<sup>3</ sup> influenza virus 2014-04-23 Completed [facility] vaccine, 06:00:00 inactivated<sup>1</ sup> diphtheria/pertussi 2014-04-23 Completed [facility] iagladys Vieira s, acel/tetanus 06:00:00 adult<sup>3</sup> diphtheria/pertussi 2014-04-23 Completed [facility] iagladys [facility]ie[facility], acel/tetanus 06:00:00 adult<sup>1</sup> influenza virus 2014-04-23 Completed [facility] [place] vaccine, 06:00:00 inactivated<sup>3</ sup> diphtheria/pertussi 2014-04-23 Completed [facility] iagladys Vieira s, acel/tetanus 06:00:00 adult<sup>3</sup> influenza virus 2014-04-23 Completed [facility] [place] vaccine, 06:00:00 inactivated<sup>1</ sup> diphtheria/pertussi 2014-04-23 Completed [facility] naomie Vieira s, acel/tetanus 06:00:00 adult<sup>1</sup> influenza virus 2014-04-23 Completed [facility] vaccine, 06:00:00 inactivated<sup>3</ sup> diphtheria/pertussi 2014-04-23 Completed [facility] iagladys Vieira s, acel/tetanus 06:00:00 adult<sup>3</sup> influenza virus 2014-04-23 Completed [facility] vaccine, 06:00:00 inactivated<sup>1</ sup> diphtheria/pertussi 2014-04-23 Completed [facility] naomie Vieira s, acel/tetanus 06:00:00 adult<sup>1</sup> influenza virus 2014-04-23 Completed [facility] [place] vaccine, 06:00:00 inactivated<sup>3</ sup> Hx influenza 2013-04-24 [...] 15:42:20 <sup>2</sup> influenza virus 2013-04-24 Completed [facility] vaccine, 06:00:00 inactivated<sup>2</ sup> influenza virus 2013-04-24 Completed [facility] [place] vaccine, 06:00:00 inactivated<sup>4</ sup> influenza virus 2013-04-24 Completed [facility] [place] vaccine, 06:00:00 inactivated<sup>2</ sup> influenza virus 2013-04-24 Completed [facility] vaccine, 06:00:00 inactivated<sup>4</ sup> influenza virus 2013-04-24 Completed [facility] [place] vaccine, 06:00:00 inactivated<sup>2</ sup> influenza virus 2013-04-24 Completed [facility] [place] vaccine, 06:00:00 inactivated<sup>4</ sup> influenza virus 2013-04-24 [...] 165.1 cm WEIGHT 2019-12-29 00:00:00 77.7 kg HEIGHT 2019-12-29 00:00:00 165.1 cm WEIGHT 2019-12-29 00:00:00 77.7 kg Height 2019-10-01 15:14:00 160.02 cm [facility] Weight 2019-10-01 15:14:00 [facility] [place] BMI Calculated 2019-10-01 15:14:00 [facility] [place] Systolic (mm Hg) 2019-10-01 15:14:00 Vasile rial [place] Diastolic (mm Hg) 2019-10-01 15:14:00 [facility] [place] Heart Rate 2019-10-01 15:14:00 [facility] Respitory Rate 2019-10-01 15:14:00 [facility] [place] Temperature Oral (F) 2019-10-01 15:14:00 97.8 F [facility] [place] Systolic (mm Hg) 2019-08-14 15:17:00 Vasile rial [place] Diastolic (mm Hg) 2019-08-14 15:17:00 Mem orial [place] Heart Rate 2019-08-14 15:17:00 [facility] [place] Weight 2019-08-14 15:17:00 [facility] [place] Height 2019-07-22 22:18:00 160.02 cm [facility] [place] Weight 2019-07-22 22:18:00 [facility] [place] BMI Calculated 2019-07-22 22:18:00 Memori al [place] Systolic (mm Hg) 2019-07-22 22:18:00 Vasile rial [place] Diastolic (mm Hg) 2019-07-22 22:18:00 Mem o[facility] [place] Heart Rate 2019-07-22 22:18:00 [facility] Temperature Oral (F) 2019-07-22 22:18:00 97.6 F [facility] [place] Systolic (mm Hg) 2019-06-17 19:58:00 Vasile rial [place] Diastolic (mm Hg) 2019-06-17 19:58:00 Mem [facility] [place] Heart Rate 2019-06-17 19:58:00 [facility] [place] Respitory Rate 2019-06-17 19:58:00 [facility] al [place] Height 2019-06-17 19:58:00 165.1 cm [facility] Weight 2019-06-17 19:58:00 [facility] [place] BMI Calculated 2019-06-17 19:58:00 [facility] [place] Height 2019-05-16 16:27:00 160.02 cm [facility] Weight 2019-05-16 16:27:00 [facility] [place] BMI Calculated 2019-05-16 16:27:00 [facility] al [place] Systolic (mm Hg) 2019-05-16 16:27:00 Vasile rial [place] Diastolic (mm Hg) 2019-05-16 16:27:00 Mem o[facility] [place] Heart Rate 2019-05-16 16:27:00 [facility] [place] Temperature Oral (F) 2019-05-16 16:27:00 97.9 F [facility] [place] Height 2019-04-02 14:23:00 160.02 cm [facility] [place] Systolic (mm Hg) 2019-04-02 14:23:00 Vasile rial [place] Diastolic (mm Hg) 2019-04-02 14:23:00 Mem [facility] [place] Heart Rate 2019-04-02 14:23:00 [facility] [place] Respitory Rate 2019-04-02 14:23:00 [facility] [place] Temperature Oral (F) 2019-04-02 14:23:00 98.1 F [facility] [place] Weight 2019-04-02 14:23:00 [facility] [place] BMI Calculated 2019-04-02 14:23:00 [facility] [place] Systolic (mm Hg) 2019-03-27 18:17:00 Vasile rial [place] Diastolic (mm Hg) 2019-03-27 18:17:00 Mem [facility] [place] Heart Rate 2019-03-27 18:17:00 [facility] [place] Respitory Rate 2019-03-27 18:17:00 [facility] [place] Temperature Oral (F) 2019-03-27 18:17:00 98.3 F [facility] [place] Height 2019-03-27 18:17:00 165.1 cm [facility] [place] Weight 2019-03-27 18:17:00 [facility] [place] BMI Calculated 2019-03-27 18:17:00 [facility] [place] Systolic (mm Hg) 2019-02-27 14:53:00 Vasile rial [place] Diastolic (mm Hg) 2019-02-27 14:53:00 Mem [facility] [place] Heart Rate 2019-02-27 14:53:00 [facility] [place] Weight 2019-02-27 14:53:00 [facility] [place] Systolic (mm Hg) 2019-01-01 13:09:00 Vasile rial [place] Diastolic (mm Hg) 2019-01-01 13:09:00 Mem [facility] [place] Temperature Oral (F) 2019-01-01 13:09:00 98.0 F [facility] [place] Heart Rate 2019-01-01 13:09:00 [facility] [place] Weight 2019-01-01 13:09:00 [facility] BMI Calculated 2018-11-15 14:02:00 [facility] [place] Weight 2018-11-15 14:02:00 [facility] [place] Systolic (mm Hg) 2018-11-15 14:02:00 Vasile rial [place] Diastolic (mm Hg) 2018-11-15 14:02:00 [facility] [place] Temperature Oral (F) 2018-11-15 14:02:00 97.6 F [facility] Heart Rate 2018-11-15 14:02:00 [facility] Height 2018-11-15 14:02:00 160.02 cm [facility] BMI Calculated 2018-09-23 15:26:00 [facility] [place] Weight 2018-09-23 15:26:00 [facility] [place] Height 2018-09-23 15:26:00 160.02 cm [facility] Temperature Oral (F) 2018-09-23 15:26:00 97.5 F [facility] Heart Rate 2018-09-23 15:26:00 [facility] [place] Respitory Rate 2018-09-23 15:26:00 [facility] [place] Systolic (mm Hg) 2018-09-23 15:26:00 Vasile rial [place] Diastolic (mm Hg) 2018-09-23 15:26:00 [facility] [place] Weight 2018-09-10 21:14:00 [facility] [place] Temperature Oral (F) 2018-09-10 21:14:00 97.6 F [facility] Respitory Rate 2018-09-10 21:14:00 [facility] [place] Heart Rate 2018-09-10 21:14:00 [facility] [place] Systolic (mm Hg) 2018-09-10 21:14:00 Vasile rial [place] Diastolic (mm Hg) 2018-09-10 21:14:00 [facility] [place] Height 2018-08-01 14:26:00 160.02 cm [facility] Weight 2018-08-01 14:26:00 [facility] [place] BMI Calculated 2018-08-01 14:26:00 [facility] [place] Respitory Rate 2018-08-01 14:26:00 [facility] [place] Heart Rate 2018-08-01 14:26:00 [facility] [place] Systolic (mm Hg) 2018-08-01 14:26:00 Vasile rial [place] Diastolic (mm Hg) 2018-08-01 14:26:00 [facility] [place] Systolic (mm Hg) 2018-07-09 14:06:00 Vasile rial [place] Diastolic (mm Hg) 2018-07-09 14:06:00 [facility] [place] Heart Rate 2018-07-09 14:06:00 [facility] [place] Temperature Oral (F) 2018-07-09 14:06:00 98.4 F [facility] [place] Weight 2018-07-09 14:06:00 [facility] [place] Systolic (mm Hg) 2018-07-08 16:29:00 Vasile [facility] [place] Diastolic (mm Hg) 2018-07-08 16:29:00 Mem [facility] [place] Heart Rate 2018-07-08 16:29:00 [facility] [place] Height 2018-07-08 16:29:00 165.1 cm [facility] [place] Weight 2018-07-08 16:29:00 [facility] [place] BMI Calculated 2018-07-08 16:29:00 [facility] [place] Weight 2018-05-16 15:56:00 [facility] [place] Respitory Rate 2018-05-16 15:56:00 [facility] [place] Temperature Oral (F) 2018-05-16 15:56:00 98.2 F [facility] Heart Rate 2018-05-16 15:56:00 [facility] [place] Systolic (mm Hg) 2018-05-16 15:56:00 Vasile rial [place] Diastolic (mm Hg) 2018-05-16 15:56:00 [facility] [place] BMI Calculated 2018-03-28 18:21:00 [facility] [place] Weight 2018-03-28 18:21:00 [facility] [place] Height 2018-03-28 18:21:00 160.02 cm [facility] [place] Heart Rate 2018-03-28 18:21:00 [facility] [place] Temperature Oral (F) 2018-03-28 18:21:00 98.2 F [facility] [place] Systolic (mm Hg) 2018-03-28 18:21:00 Vasile rial [place] Diastolic (mm Hg) 2018-03-28 18:21:00 [facility] [place] Weight 2018-03-25 14:36:00 [facility] [place] BMI Calculated 2018-03-25 14:36:00 [facility] [place] Height 2018-03-25 14:36:00 160.02 cm [facility] [place] Temperature Oral (F) 2018-03-25 14:36:00 97.8 F [facility] Heart Rate 2018-03-25 14:36:00 [facility] [place] Respitory Rate 2018-03-25 14:36:00 [facility] [place] Systolic (mm Hg) 2018-03-25 14:36:00 Vasile rial [place] Diastolic (mm Hg) 2018-03-25 14:36:00 [facility] [place] BMI Calculated 2018-03-08 14:35:00 [facility] [place] Weight 2018-03-08 14:35:00 [facility] Heart Rate 2018-03-08 14:35:00 [facility] [place] Temperature Oral (F) 2018-03-08 14:35:00 97.8 F [facility] [place] Systolic (mm Hg) 2018-03-08 14:35:00 Vasile rial [place] Diastolic (mm Hg) 2018-03-08 14:35:00 [facility] [place] Height 2018-03-08 14:35:00 165.1 cm [facility] Weight 2018-03-05 20:47:00 [facility] [place] Systolic (mm Hg) 2018-03-05 20:47:00 Vasile rial [place] Diastolic (mm Hg) 2018-03-05 20:47:00 [facility] [place] Heart Rate 2018-03-05 20:47:00 [facility] [place] Temperature Oral (F) 2018-03-05 20:47:00 98.3 F [facility] [place] Respitory Rate 2018-03-05 20:47:00 [facility] [place] Height 2018-02-13 19:12:00 161.29 cm [facility] Temperature Oral (F) 2018-02-13 19:12:00 98.1 F [facility] [place] Heart Rate 2018-02-13 19:12:00 [facility] [place] Respitory Rate 2018-02-13 19:12:00 [facility] [place] Systolic (mm Hg) 2018-02-13 19:12:00 Vasile rial [place] Diastolic (mm Hg) 2018-02-13 19:12:00 [facility] [place] Weight 2018-02-13 19:12:00 [facility] BMI Calculated 2018-02-13 19:12:00 [facility] [place] Weight 2017-10-31 16:55:00 [facility] Height 2017-10-31 16:55:00 165.1 cm [facility] [place] BMI Calculated 2017-10-31 16:55:00 [facility] Heart Rate 2017-10-31 16:55:00 [facility] Temperature Oral (F) 2017-10-31 16:55:00 98.8 F [facility] [place] Systolic (mm Hg) 2017-10-31 16:55:00 [facility] [place] Diastolic (mm Hg) 2017-10-31 16:55:00 [facility] [place] BMI Calculated 2017-09-19 14:28:00 [facility] [place] Weight 2017-09-19 14:28:00 [facility] Height 2017-09-19 14:28:00 162.56 cm [facility] Systolic (mm Hg) 2017-09-19 14:28:00 Vasile [facility] [place] Diastolic (mm Hg) 2017-09-19 14:28:00 [facility] [place] Respitory Rate 2017-09-19 14:28:00 [facility] Heart Rate 2017-09-19 14:28:00 [facility] Temperature Oral (F) 2017-09-19 14:28:00 98.2 F [facility] [place] Weight 2017-08-28 20:25:00 [facility] [place] Heart Rate 2017-08-28 20:25:00 [facility] [place] Systolic (mm Hg) 2017-08-28 20:25:00 [facility] [place] Diastolic (mm Hg) 2017-08-28 20:25:00 [facility] [place] Systolic (mm Hg) 2017-08-28 19:58:00 Vasile [facility] [place] Diastolic (mm Hg) 2017-08-28 19:58:00 [facility] [place] Heart Rate 2017-08-28 19:58:00 [facility] [place] Weight 2017-08-28 19:58:00 [facility] Weight 2017-08-03 20:19:00 [facility] [place] Temperature Oral (F) 2017-08-03 20:19:00 97.9 F [facility] [place] Systolic (mm Hg) 2017-08-03 20:19:00 Vas[facility] Diastolic (mm Hg) 2017-08-03 20:19:00 [facility] Heart Rate 2017-08-03 20:19:00 [facility] [place] Temperature Oral (F) 2017-07-25 19:39:00 97.4 F [facility] [place] Systolic (mm Hg) 2017-07-25 19:39:00 Vas[facility] Diastolic (mm Hg) 2017-07-25 19:39:00 [facility] Heart Rate 2017-07-25 19:39:00 [facility] Weight 2017-07-25 19:39:00 [facility] [place] Height 2017-06-28 15:25:00 165.1 cm [facility] Weight 2017-06-28 15:25:00 [facility] [place] BMI Calculated 2017-06-28 15:25:00 [facility] Heart Rate 2017-06-28 15:25:00 [facility] [place] Systolic (mm Hg) 2017-06-28 15:25:00 [facility] Diastolic (mm Hg) 2017-06-28 15:25:00 [facility] [place] Temperature Oral (F) 2017-06-14 14:26:00 97.8 F [facility] [place] Weight 2017-06-14 14:26:00 [facility] Systolic (mm Hg) 2017-06-14 14:26:00 [facility] [place] Diastolic (mm Hg) 2017-06-14 14:26:00 [facility] [place] Heart Rate 2017-06-14 14:26:00 [facility] [place] Weight 2017-04-27 15:20:00 [facility] Height 2017-04-27 15:20:00 163.83 cm [facility] 2017-04[facility]27 [facility] 2017[facility]04[facility]27 15:20:00 [facility] [place] Diastolic (mm Hg) 2017-04-27 15:20:00 [facility] [place] Temperature Oral (F) 2017-04-27 15:20:00 98.5 F [facility] [place] Heart Rate 2017-04-27 15:20:00 [facility] Dariel Respitory Rate 2017-04-27 15:20:00 [facility] Procedures Procedure Date / Time Performing Clinician Source Performed SARS-COV-2 COVID-19 2021-03-29 20:09:48 Doctor Unassigned, No [facility] [place] VACCINE,0.3ML,IM Name [facility] ([facility]) Mammogram 2018-07-08 06:00:00 [facility] Her hawk Cataract surgery 2018-06-24 06:00:00 [facility] Jared rmann Removal impacted 2018-03-08 15:45:00 [facility] Jared rmann cerumen requiring instrumentation, unilateral Colonoscopy<sup>1</sup> 2016-07-19 06:00:00 Vasile rial Dariel Procedure on 2013-10-09 05:00:00 [facility] Her hawk wrist<sup>2</sup> Colonoscopy 2012-12-18 05:00:00 [facility] Her hawk CEIOL - Cataract 2011-02-13 05:00:00 [facility] Jared rmann extraction and insertion of intraocular lens<sup>3</sup> Arthroscopy of 2010-06-11 00:00:00 [facility] Her hawk knee<sup>4</sup> CRIS BSO - Total 2000-06-11 00:00:00 [facility] Her hawk abdominal hysterectomy and bilateral salpingo-oophorectomy<s up>5</sup> Pneumococcal [facility] vaccination<sup>7</sup> Simple dental [facility] extraction<sup>9</sup> Bunionectomy<sup>6</sup [facility] [place] [facility] > Rotator cuff [facility] repair<sup>8</sup> Plan of Care Planned Activity Planned Date Details Comments Source Future Scheduled 2023-02-09 Influenza Vaccine (#1) [facility] 00:00:00 [code = Influenza Medical Ce nter Vaccine (#1)] Future Scheduled 2023-02-[address] [facility] 00:00:00 (Season Ended) [code = [facility] INFLUENZA VACCINE (Season Ended)] Future Scheduled 2022-06-11 [...] RISK Medical C enter SCREENING] Future Scheduled 2022-02-09 INFLUENZA VACCINE (#1) [facility] 00:00:00 [code = INFLUENZA Medical Ce nter VACCINE (#1)] Future Scheduled 2021-01-13 Tobacco Cessation [...] [facility] of 2) [code = [facility] VACCINES (1 of 2)] Future Scheduled 1989-08-29 SHINGLES VACCINES ([address] [facility] 00:00:00 of 2) [code = SHINGLES Medic al Center VACCINES (1 of 2)] Future Scheduled 1989-08-29 SHINGLES VACCINES ([address] [facility] 00:00:00 of 2) [code = SHINGLES Medic al Center VACCINES (1 of 2)] Future Scheduled 1958-08-29 DTAP/TDAP/TD VACCINES [facility] 00:00:00 (1 - Tdap) [code = Medical C enter DTAP/TDAP/TD VACCINES (1 - Tdap)] Future Scheduled 1958-08-29 DTAP/TDAP/TD VACCINES [facility] 00:00:00 (1 - Tdap) [code = Medical C enter DTAP/TDAP/TD VACCINES (1 - Tdap)] Future Scheduled 1958-08-29 DTAP/TDAP/TD VACCINES [facility] 00:00:00 (1 - Tdap) [code = Medical C enter DTAP/TDAP/TD VACCINES (1 - Tdap)] Future Scheduled 1940-03-01 COVID-19 VACCINE (#1) [facility] 00:00:00 [code = COVID-[address] VACCINE (#1)] Future Scheduled 1940-03-01 COVID-19 VACCINE (#1) [facility] 00:00:00 [code = COVID-[address] VACCINE (#1)] Future Scheduled 1940-03-01 COVID-19 VACCINE (#1) [facility] 00:00:00 [code = COVID-[address] VACCINE (#1)] Future Scheduled 1940 DXA SCAN [code = DXA [facility] 00:00:00 SCAN] [facility] Future Scheduled 1939 DXA SCAN [code = DXA [facility] 00:00:00 SCAN] [facility] Future Scheduled 1939 DXA SCAN [code = DXA [facility] 00:00:00 SCAN] [facility] Center Encounters Start End Encounter Admission Attending Care Care Encounter Source Date/Time Date/Time Type Type Clinicians Facility Department ID 2021-03-16 Inpatient [facility] Surgery [id number] [facility] 00:27:59 DARRICK 2021-11-05 2021-11-05 Telephone Nurse, Reid [facility] 1.2.840.114 [id number] Univers 00:00:00 00:00:00 Db Urgent HEALTH 350.1.13.10 ity of Care [place] 4.2.7.2.686 Lanre as BILL?BLEA [phone] [address] [facility] 2021-11-04 2021-11-04 Laboratory Only, Reid Db Test [facility] 1.2.8 40.114 [id number] Univers 11:30:00 11:45:00 Only Bel Ramos 350.1.13.10 ity of [place] 4.2.7.2.686 Lanre as BILL?BLEA [phone] [address] MEDICAL [facility] 2021-11-04 2021-11-04 Outpatient R TON [facility] [id number] Univers 11:30:00 11:30:00 BEL [facility] 2021-03-29 2021-03-29 Outpatient R AUDRA [facility] [id number] Univers 15:30:00 15:30:00 ALEK [facility] 2021-03-29 2021-03-29 Imm/Inj Nurse, Adc Pob Immunization [facility] 1.2.840.114 [id number] Univers 15:09:08 15:09:19 Visit Alek Zhu 350.1.13 .10 it[place] of [place] [phone] Wa dical nal [address] [facility] 2021-01-28 2021-01-28 Letter DMITRY Arrieta 1.2.840.114 [id number] Univers 00:00:00 00:00:00 (Out) Chantale ZAMORA 350.1.13.10 it y of HOSPITAL 4.2.7.2.686 Lanre as [phone] [address] 2021-01-27 2021-01-27 Outpatient Josh HERNANDEZ [facility] [id number] Univers 13:35:00 13:35:00 CARLO ity [facility] 2021-01-27 2021-01-27 Letter Doctor ANDRES 1.2.840.114 [id number] Univers 00:00:00 00:00:00 (Out) Unassigned, NOAH 350.1.13.10 ity of [place] [facility] 4.2.7.2.686 Lanre as [phone] [address] 2021-01-27 2021-01-27 Letter Doctor ANDRES 1.2.840.114 [id number] Univers 00:00:00 00:00:00 (Out) Unassigned, NOAH 350.1.13.10 ity of [place] [facility] 4.2.7.2.686 Lanre as [phone] [address] 2020-04-26 2020-04-26 Office GABO Vick 1.2.840.114 [id number] 09:12:31 09:56:39 Visit Darrick AMBULATOR 350.1.13.21 Y 0.2.7.2.686 [id number] 600 2020-02-26 2020-02-26 Office GABO Vick 1.2.840.114 [id number] 10:05:08 10:15:08 Visit Darrick AMBULATOR 350.1.13.21 Y 0.2.7.2.686 [id number] 600 2020-01-29 2020-01-29 Office GABO Vick 1.2.840.114 [id number] 10:08:48 11:01:35 Visit Darrick AMBULATOR 350.1.13.21 Y 0.2.7.2.686 [id number] 600 2020-01-07 2020-01-07 Outpatient [facility] SLE [id number] SLE 00:00:00 00:00:00 2019-12-29 2019-12-29 Office GABO Vick 1.2.840.114 [id number] 09:15:39 10:16:40 Visit Darrick AMBULATOR 350.1.13.21 Y 0.2.7.2.686 [id number] 600 2019-11-25 2019-11-25 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 [facility] Family 4 [id number] Memoria 14:15:00 14:15:00 Pre-Reg r Medicine 90 l [place] 2019-11-25 2019-11-25 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 [facility] Family 4 [id number] Memoria 14:15:00 14:15:00 Pre-Reg r Medicine 90 l [place] 2019-11-25 2019-11-25 Outpatient MHIE IE [id number] Memoria 09:15:00 09:15:00 90 [place] 2019-11-25 2019-11-25 Outpatient Beth [facility] [id number] 09:15:00 09:15:00 Mar Garciar 2019-11-18 2019-11-18 Outpatient MHIE IE [id number] Memoria 08:15:00 08:15:00 89 l Dariel 2019-11-18 2019-11-18 Outpatient MHIE MHIE [id number] Memoria 08:15:00 08:15:00 91 l [place] 2019-10-01 2019-10-02 [place] [id number] Memoria 14:45:00 04:59:59 r Cardiology 83 l [place] Dariel 2019-10-01 2019-10-02 Outpatient nullFlavo [facility] [id number] Memoria 14:45:00 04:59:59 r Cardiology 82 l Edwin Dariel 2019-10-01 2019-10-01 Outpatient Trent, L [facility] MHMG [id number] 09:45:00 23:59:59 Chrissy 82 2019-10-01 2019-10-01 Outpatient MHIE MHIE [id number] Memoria 09:45:00 09:45:00 82 gladys Vieira 2019-09-29 2019-10-01 Phone nullFlavo MHMG [id number] Memoria 16:13:37 04:59:59 Message r Cardiology 15 gladys Vieira 2019-09-29 2019-10-01 Phone nullFlavo MHMG [id number] Memoria 16:13:37 04:59:59 Message r Cardiology 15 gladys Vieira 2019-09-29 2019-09-30 Outpatient MHMG MHMG [id number] 11:13:37 23:59:59 15 2019-08-20 2019-08-22 Phone nullFlavo [facility] Family [id number] Memoria 21:25:11 04:59:59 Message r Medicine 14 gladys Vieira 2019-08-20 2019-08-22 Phone nullFlavo MG Family [id number] Memoria 21:25:11 04:59:59 Message r Medicine 14 gladys Vieira 2019-08-20 2019-08-21 Outpatient MHMG MHMG [id number] 16:25:11 23:59:59 14 2019-08-14 2019-08-15 Outpatient nullFlavo MG Family 4 [id number] Memoria 15:15:00 05:59:59 r Medicine 85 gladys Vieira 2019-08-14 2019-08-15 Outpatient nullFlavo MG Family 4 [id number] Memoria 15:15:00 05:59:59 r Medicine 85 gladys Vieira 2019-08-14 2019-08-14 Outpatient Beth, MHMG MG [id number] 09:15:00 23:59:59 Mar 84 Meliza 2019-08-14 2019-08-14 Outpatient MHIE MHIE [id number] Memoria 09:15:00 09:15:00 85 gladys [place] 2019-08-05 2019-08-05 Outpatient MHIE MHIE [id number] Memoria 07:45:00 07:45:00 85 l Dariel 2019-08-05 2019-08-05 Outpatient MHIE MHIE [id number] Memoria 07:45:00 07:45:00 86 l [place] 2019-07-22 2019-07-23 Outpatient nullFlavo [facility] Family 4 [id number] Memoria 22:15:00 05:59:59 r Medicine 89 l Edwin Dariel 2019-07-22 2019-07-23 Outpatient nullFlavo [facility] Family 4 [id number] Memoria 22:15:00 05:59:59 r Medicine 89 l Edwin Dariel 2019-07-22 2019-07-22 Outpatient Beth, MG MG [id number] 16:15:00 23:59:59 Mar 88 Joser 2019-07-22 2019-07-22 Outpatient MHIE MHIE [id number] Memoria 16:15:00 16:15:00 89 [place] 2019-07-10 2019-07-10 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 [id number] Memoria 16:00:00 16:00:00 Pre-Reg r [place] 65 l [place] 2019-07-10 2019-07-10 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 [id number] Memoria 16:00:00 16:00:00 Pre-Reg r [place] 64 l Dariel 2019-07-10 2019-07-10 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 [id number] Memoria 15:30:00 15:30:00 Pre-Reg r Radiology 63 l [place] 2019-07-10 2019-07-10 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 [facility] [id number] Memoria 15:30:00 15:30:00 Pre-Reg r Radiology 63 l Edwin Dariel 2019-07-10 2019-07-10 Outpatient MHIE MHIE [id number] Memoria 10:00:00 10:00:00 63 l [place] 2019-07-10 2019-07-10 [place] [id number] 10:00:00 10:00:00 Brendon Mckeon 64 2019-07-10 2019-07-10 Outpatient VISIT, MG MG [id number] 09:30:00 09:30:[address]W 63 MAMMO 2019-06-17 2019-06-18 Outpatient nullFlavo MH[facility] [id number] Memoria 20:45:00 05:59:59 r Radiology 88 gladys Vieira 2019-06-17 2019-06-18 Outpatient nullFlavo MHMG [id number] Memoria 20:45:00 05:59:59 r Radiology 88 gladys Vieira 2019-06-17 2019-06-18 Outpatient nullFlavo [facility] Family 4 [id number] Memoria 19:45:00 05:59:59 r Medicine 87 gladys Vieira 2019-06-17 2019-06-18 Outpatient nullFlavo [facility] Family 4 [id number] Memoria 19:45:00 05:59:59 r Medicine 87 gladys Vieira 2019-06-17 2019-06-17 Outpatient VISIT, MHMG MG [id number] 14:45:00 23:59:59 NURSE STWH 88 ANNEAY 2019-06-17 2019-06-17 Outpatient Nwani, MG MG [id number] 13:45:00 23:59:59 José Miguel 86 Darci 2019-06-17 2019-06-17 Outpatient MHIE MHIE [id number] Memoria 14:45:00 14:45:00 87 gladys Vieira 2019-06-17 2019-06-17 Outpatient MHIE MHIE [id number] Memoria 13:45:00 13:45:00 86 gladys Vieira 2019-05-16 2019-05-17 Outpatient nullFlavo MG Family 4 [id number] Memoria 16:00:00 05:59:59 r Medicine 84 gladys Vieira 2019-05-16 2019-05-17 Outpatient nullFlavo MG Family 4 [id number] Memoria 16:00:00 05:59:59 r Medicine 84 gladys Vieira 2019-05-16 2019-05-16 Outpatient Beth, MG MHMG [id number] 10:00:00 23:59:59 Mar 83 Meliza 2019-05-16 2019-05-16 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 [facility] Family 4 [id number] Memoria 16:00:00 16:00:00 Pre-Reg r Medicine 74 gladys Vieira 2019-05-16 2019-05-16 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 [facility] Family 4 [id number] Memoria 16:00:00 16:00:00 Pre-Reg r Medicine 74 gladys Vieira 2019-05-16 2019-05-16 Outpatient MHIE MHIE [id number] Memoria 10:00:00 10:00:00 83 gladys Vieira 2019-05-16 2019-05-16 Outpatient MHIE MHIE [id number] Memoria 10:00:00 10:00:00 74 gladys Vieira 2019-05-16 2019-05-16 Outpatient Beth MHMG MG [id number] 10:00:00 10:00:00 Mar 74 Meliza 2019-05-09 2019-05-09 Outpatient MHIE MHIE [id number] Memoria 07:10:00 07:10:00 75 gladys Vieira 2019-05-09 2019-05-09 Outpatient MHIE MHIE [id number] Memoria 07:10:00 07:10:00 75 gladys Vieira 2019-04-09 2019-04-11 Phone nullFlavo MG Family [id number] Memoria 14:52:12 04:59:59 Message r Medicine 13 gladys Vieira 2019-04-09 2019-04-11 Phone nullFlavo MG Family [id number] Memoria 14:52:12 04:59:59 Message r Medicine 13 gladys Vieira 2019-04-09 2019-04-10 Outpatient MHMG MHMG [id number] 09:52:12 23:59:59 13 2019-04-02 2019-04-03 [place] [id number] Memoria 14:15:00 04:59:59 r Cardiology 81 gladys Vieira 2019-04-02 2019-04-03 Outpatient nullFlavo MHMG [id number] Memoria 14:15:00 04:59:59 r Cardiology 81 gladys Vieira 2019-04-02 2019-04-02 Outpatient Trent L MHMG MHMG [id number] 09:15:00 23:59:59 Chrissy 81 2019-04-02 2019-04-02 Outpatient MHIE MHIE [id number] Memoria 09:15:00 09:15:00 80 gladys Vieira 2019-03-28 2019-03-28 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 MHMG [id number] Memoria 15:15:00 15:15:00 Pre-Reg r Cardiology 80 gladys Vieira 2019-03-28 2019-03-28 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 MHMG [id number] Memoria 15:15:00 15:15:00 Pre-Reg r Cardiology 80 gladys Vieira 2019-03-28 2019-03-28 Outpatient MHIE MHIE [id number] Memoria 10:15:00 10:15:00 79 gladys Vieira 2019-03-28 2019-03-28 Outpatient Aidal, L MHMG MG [id number] 10:15:00 10:15:00 Chrissy 80 2019-03-27 2019-03-28 Outpatient nullFlavo [facility] Family 4 [id number] Memoria 18:00:00 04:59:59 r Medicine 82 gladys Vieira 2019-03-27 2019-03-28 Outpatient nullFlavo [facility] Family 4 [id number] Memoria 18:00:00 04:59:59 r Medicine 82 gladys Vieira 2019-03-27 2019-03-27 Outpatient Nwani, MG MG [id number] 13:00:00 23:59:59 José Miguel 82 Darci 2019-03-27 2019-03-27 Outpatient MHIE MHIE [id number] Memoria 13:00:00 13:00:00 81 gladys Vieira 2019-03-24 2019-03-24 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 [id number] Memoria 13:45:00 13:45:00 Pre-Reg r Cardiology 73 gladys Vieira 2019-03-24 2019-03-24 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 [id number] Memoria 13:45:00 13:45:00 Pre-Reg r Cardiology 74 gladys Vieira 2019-03-24 2019-03-24 Outpatient MHIE MHIE [id number] Memoria 08:45:00 08:45:00 73 gladys Vieira 2019-03-24 2019-03-24 Outpatient Trent, L MHMG MG [id number] 08:45:00 08:45:00 Chrissy 74 2019-03-17 2019-03-17 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 [facility] Family 4 [id number] Memoria 19:45:00 19:45:00 Pre-Reg r Medicine 79 l [place] 2019-03-17 2019-03-17 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 [facility] Family 4 [id number] Memoria 19:45:00 19:45:00 Pre-Reg r Medicine 79 gladys Vieira 2019-03-17 2019-03-17 Outpatient Espinoza, MHMG MHMG [id number] 14:45:00 14:45:00 Luca 79 2019-03-17 2019-03-17 Outpatient MHIE MHIE [id number] Memoria 13:30:00 13:30:00 78 gladys Vieira 2019-02-27 2019-02-28 Outpatient nullFlavo [facility] Family 4 [id number] Memoria 15:15:00 04:59:59 r Medicine 78 gladys Vieira 2019-02-27 2019-02-28 Outpatient nullFlavo [facility] Family 4 [id number] Memoria 15:15:00 04:59:59 r Medicine 78 gladys Vieira 2019-02-27 2019-02-27 Outpatient Beth MG MG [id number] 10:15:00 23:59:59 Mar 78 Meliza 2019-02-27 2019-02-27 Outpatient MHIE MHIE [id number] Memoria 10:15:00 10:15:00 77 gladys Vieira 2019-01-01 2019-01-02 Outpatient nullFlavo [facility] Family 4 [id number] Memoria 13:30:00 04:59:59 r Medicine 77 gladys Vieira 2019-01-01 2019-01-02 Outpatient nullFlavo [facility] Family 4 [id number] Memoria 13:30:00 04:59:59 r Medicine 77 gladys Vieira 2019-01-01 2019-01-01 Outpatient MHMG MHMG [id number] 08:30:00 23:59:59 77 2019-01-01 2019-01-01 Outpatient MHIE MHIE [id number] Memoria 08:30:00 08:30:00 76 gladys Vieira 2018-11-15 2018-11-16 Outpatient nullFlavo [facility] Family 4 [id number] Memoria 14:00:00 04:59:59 r Medicine 73 gladys Vieira 2018-11-15 2018-11-16 Outpatient nullFlavo [facility] Family 4 [id number] Memoria 14:00:00 04:59:59 r Medicine 73 gladys Vieira 2018-11-15 2018-11-15 [id number] 09:00:00 23:59:59 Onofre P 72 2018-11-15 2018-11-15 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 [facility] Family 4 [id number] Memoria 14:00:00 14:00:00 Pre-Reg r Medicine 60 gladys Vieira 2018-11-15 2018-11-15 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 MG Family 4 [id number] Memoria 14:00:00 14:00:00 Pre-Reg r Medicine 60 gladys Vieira 2018-11-15 2018-11-15 Outpatient MHIE MHIE [id number] Memoria 09:00:00 09:00:00 72 gladys Vieira 2018-11-15 2018-11-15 Outpatient MHIE MHIE [id number] Memoria 09:00:00 09:00:00 60 gladys Vieira 2018-11-15 2018-11-15 [facility] [id number] 09:00:00 09:00:00 Onofre P 60 2018-11-08 2018-11-08 Outpatient MHIE MHIE [id number] Memoria 07:00:00 07:00:00 61 gladys [place] 2018-11-08 2018-11-08 Outpatient MHIE MHIE [id number] Memoria 07:00:00 07:00:00 61 gladys Dariel 2018-09-23 2018-09-24 Outpatient nullFlavo MHMG [id number] Memoria 15:15:00 04:59:59 r Cardiology 57 gladys Pineda Dariel 2018-09-23 2018-09-24 Outpatient nullFlavo MHMG [id number] Memoria 15:15:00 04:59:59 r Cardiology 57 gladys [place] Dariel 2018-09-23 2018-09-23 Outpatient Gladys Newman MG MG [id number] 10:15:00 23:59:59 Chrissy 57 2018-09-23 2018-09-23 Outpatient MHIE MHIE [id number] Memoria 10:15:00 10:15:00 57 gladys Dariel 2018-09-10 2018-09-11 Outpatient nullFlavo [facility]MG [id number] Memoria 21:00:00 04:59:59 r Pulmonology 50 gladys [place] 2018-09-10 2018-09-11 Outpatient nullFlavo [facility] [id number] Memoria 21:00:00 04:59:59 r Pulmonology 51 gladys Pineda [place] 2018-09-10 2018-09-10 Outpatient Thrasher, [facility] [id number] 16:00:00 23:59:59 Alan 50 Joseph 2018-09-10 2018-09-10 Outpatient NICOLESYDNEE IE [id number] Memoria 16:00:00 16:00:00 50 gladys [place] 2018-08-01 2018-08-02 Outpatient nullFlavo [facility] Family 4 [id number] Memoria 14:30:00 05:59:59 r Medicine 71 gladys Pineda [place] 2018-08-01 2018-08-02 Outpatient nullFlavo [facility] Family 4 [id number] Memoria 14:30:00 05:59:59 r Medicine 71 gladys [place] 2018-08-01 2018-08-01 Outpatient [place], [facility] [id number] 08:30:00 23:59:59 [place] 71 ri Mani 2018-08-01 2018-08-01 Outpatient NICOLESYDNEE IE [id number] Memoria 08:30:00 08:30:00 71 gladys Vieira 2018-07-11 2018-07-12 Outpt Diag nullFlavo [facility] [id number] Memoria 14:27:00 05:59:00 Services r Outpatient 02 l Imaging Dariel Elizabeth 2018-07-11 2018-07-12 Outpt Diag nullFlavo [facility] [id number] Memoria 14:27:00 05:59:00 Services r Outpatient 02 l Imaging Dariel Elizabeth 2018-07-11 2018-07-11 Outpatient Sangalli, MH29 MH29 [id number] 08:27:00 23:59:00 Brendon Mckeon 2018-07-11 2018-07-11 Outpatient Sangalli, MH29 MH29 [id number] 08:27:00 23:59:00 Brendon Mckeon 2018-07-09 2018-07-10 Outpatient nullFlavo [facility] Family 4 [id number] Memoria 15:30:00 05:59:59 r Medicine 70 gladys Vieira 2018-07-09 2018-07-10 Outpatient nullFlavo [facility] Family 4 [id number] Memoria 15:30:00 05:59:59 r Medicine 71 gladys Vieira 2018-07-09 2018-07-10 Outpatient nullFlavo [facility] Family 4 [id number] Memoria 14:00:00 05:59:59 r Medicine 67 gladys Vieira 2018-07-09 2018-07-10 Outpatient nullFlavo [facility] Family 4 [id number] Memoria 14:00:00 05:59:59 r Medicine 67 gladys Vieira 2018-07-09 2018-07-09 Outpatient VISIT, MHMG MHMG [id number] 09:30:00 23:59:59 NURSE STWH 71 DENISE 2018-07-09 2018-07-09 Outpatient VISIT, MHMG MHMG [id number] 09:30:00 23:59:59 NURSE STWH 71 DEXA 2018-07-09 2018-07-09 Outpatient MHMG MHMG [id number] 08:00:00 23:59:59 67 2018-07-09 2018-07-09 Outpatient MHMG MHMG [id number] 08:00:00 23:59:59 67 2018-07-09 2018-07-09 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 MHMG [id number] Memoria 15:30:00 15:30:00 Pre-Reg r Radiology 69 gladys Vieira 2018-07-09 2018-07-09 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 [facility] [id number] Memoria 15:30:00 15:30:00 Pre-Reg r Radiology 68 gladys Vieira 2018-07-09 2018-07-09 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 MHMG [id number] Memoria 15:30:00 15:30:00 Pre-Reg r Radiology 67 gladys Vieira 2018-07-09 2018-07-09 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 [facility] [id number] Memoria 15:30:00 15:30:00 Pre-Reg r Radiology 65 gladys Vieira 2018-07-09 2018-07-09 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 MH[facility] [id number] Memoria 15:30:00 15:30:00 Pre-Reg r Radiology 67 gladys Vieira 2018-07-09 2018-07-09 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 [facility] [id number] Memoria 15:30:00 15:30:00 Pre-Reg r Radiology 68 gladys Santanaann 2018-07-09 2018-07-09 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 MH[facility] [id number] Memoria 15:30:00 15:30:00 Pre-Reg r Radiology 65 gladys Vieira 2018-07-09 2018-07-09 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 [facility] [id number] Memoria 15:30:00 15:30:00 Pre-Reg r Radiology 70 gladys Vieira 2018-07-09 2018-07-09 Outpatient MHIE MHIE [id number] Memoria 09:30:00 09:30:00 70 gladys SantanaDariel 2018-07-09 2018-07-09 Outpatient MHIE MHIE [id number] Memoria 09:30:00 09:30:00 67 [place]ys [place] 2018-07-09 2018-07-09 Outpatient MHIE MHIE [id number] Memoria 09:30:00 09:30:00 69 gladys [place] 2018-07-09 2018-07-09 Outpatient MHIE MHIE [id number] Memoria 09:30:00 09:30:00 68 gladys Dariel 2018-07-09 2018-07-09 Outpatient MHIE MHIE [id number] Memoria 09:30:00 09:30:00 65 gladys Dariel 2018-07-09 2018-07-09 Outpatient VISIT, MHMG MHMG [id number] 09:30:00 09:30:00 NURSE STWH 67 MAGGIA 2018-07-09 2018-07-09 Outpatient VISIT, MHMG MHMG [id number] 09:30:00 09:30:00 NURSE STWH 65 DEXA 2018-07-09 2018-07-09 Outpatient VISIT, MHMG MHMG [id number] 09:30:00 09:30:00 NURSE STWH 69 DEXA 2018-07-09 2018-07-09 Outpatient VISIT, MHMG MHMG [id number] 09:30:00 09:30:00 NURSE STWH 70 DEXA 2018-07-09 2018-07-09 Outpatient VISIT, MHMG MHMG [id number] 09:30:00 09:30:00 NURSE STWH 66 MAGGIA 2018-07-09 2018-07-09 Outpatient VISIT, MHMG MHMG [id number] 09:30:00 09:30:00 NURSE STWH 68 DEXA 2018-07-09 2018-07-09 Outpatient VISIT, MHMG MHMG [id number] 09:30:00 09:30:00 NURSE STWH 69 DEXA 2018-07-09 2018-07-09 Outpatient VISIT, MHMG MHMG [id number] 09:30:00 09:30:00 NURSE STWH 70 DEXA 2018-07-09 2018-07-09 Outpatient MHIE MHIE [id number] Memoria 08:00:00 08:00:00 66 gladys [place] 2018-07-08 2018-07-09 Outpatient nullFlavo [facility] [employer] 4 [id number] Memoria 16:00:00 05:59:59 r Edwin 43 gladys Dariel 2018-07-08 2018-07-09 Outpatient nullFlavo [facility] [employer] 4 [id number] Memoria 16:00:00 05:59:59 r Edwin 43 gladys Dariel 2018-07-08 2018-07-09 Outpatient nullFlavo [facility] Family 4 [id number] Memoria 15:30:00 05:59:59 r Medicine 62 gladys Pineda Dariel 2018-07-08 2018-07-09 Outpatient nullFlavo [facility] Family 4 [id number] Memoria 15:30:00 05:59:59 r Medicine 62 gladys Pineda Dariel 2018-07-08 2018-07-08 Outpatient Sangalli, [facility] [id number] 10:00:00 23:59:59 Brendon Mckeon 43 2018-07-08 2018-07-08 Outpatient [facility], [facility] [id number] 10:00:00 23:59:59 Brendon Mckeon 43 2018-07-08 2018-07-08 Outpatient VISIT, [facility] [id number] 09:30:00 23:59:59 NURSE STWH 62 MAGGIA 2018-07-08 2018-07-08 Outpatient VISIT, [facility] [id number] 09:30:00 23:59:59 NURSE STWH 62 MAGGIA 2018-07-08 2018-07-08 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 [facility] [id number] Memoria 15:30:00 15:30:00 Pre-Reg r Radiology 42 gladys [place] 2018-07-08 2018-07-08 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 [id number] Memoria 15:30:00 15:30:00 Pre-Reg r Radiology 42 gladys [place] 2018-07-08 2018-07-08 Outpatient [facility] [id number] Memoria 10:00:00 10:00:00 42 gladys [place] 2018-07-08 2018-07-08 Outpatient [facility] [id number] Memoria 10:00:00 10:00:00 43 gladys [place] 2018-07-08 2018-07-08 Outpatient [facility] [id number] Memoria 09:30:00 09:30:00 62 gladys [place] 2018-07-08 2018-07-08 Outpatient VISIT, MG MG [id number] 09:30:00 09:30:00 NURSE STWC 42 PRAKASH 2018-07-08 2018-07-08 Outpatient VISIT, MG MG [id number] 09:30:00 09:30:00 NURSE STWC 42 PRAKASH 2018-05-16 2018-05-17 Outpatient nullFlavo [facility] 4 [id number] Memoria 15:45:00 05:59:59 r Medicine 59 gladys [place]ie[place] 2018-05-16 2018-05-17 Outpatient nullFlavo [facility] Family 4 [id number] Memoria 15:45:00 05:59:59 r Medicine 59 gladys [place] 2018-05-16 2018-05-16 [id number] 09:45:00 23:59:59 Onofre P 59 2018-05-16 2018-05-16 Outpatient [facility] [id number] Memoria 09:45:00 09:45:00 59 gladys [place] 2018-05-09 2018-05-09 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 [facility] Family 4 [id number] Memoria 14:30:00 14:30:00 Pre-Reg r Medicine 40 gladys [place] 2018-05-09 2018-05-09 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 [facility] Family 4 [id number] Memoria 14:30:00 14:30:00 Pre-Reg r Medicine 40 gladys V[place] 2018-05-09 2018-05-09 Outpatient MHIE MHIE [id number] Memoria 08:30:00 08:30:00 40 gladys Vieira 2018-05-09 2018-05-09 Outpatient Abraham MG MG [id number] 08:30:00 08:30:00 Onofre P 41 2018-03-28 2018-03-29 Outpatient nullFlavo MG Family 4 [id number] Memoria 18:15:00 04:59:59 r Medicine 58 gladys Vieira 2018-03-28 2018-03-29 Outpatient nullFlavo MG Family 4 [id number] Memoria 18:15:00 04:59:59 r Medicine 58 gladys Vieira 2018-03-28 2018-03-28 Outpatient Beth MG MG [id number] 13:15:00 23:59:59 Mar 59 Joser 2018-03-28 2018-03-28 Outpatient MHIE MHIE [id number] Memoria 13:15:00 13:15:00 58 gladys Vieira 2018-03-25 2018-03-26 [place] [id number] Memoria 14:45:00 04:59:59 r Cardiology 56 gladys Vieira 2018-03-25 2018-03-26 [place] [id number] Memoria 14:45:00 04:59:59 r Cardiology 56 gladys Vieira 2018-03-25 2018-03-25 Outpatient Trent L MG MG [id number] 09:45:00 23:59:59 Chrissy 56 2018-03-25 2018-03-25 Outpatient MHIE MHIE [id number] Memoria 09:45:00 09:45:00 56 gladys Dariel 2018-03-21 2018-03-21 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 [id number] Memoria 14:30:00 14:30:00 Pre-Reg r Cardiology 51 gladys Santanaann 2018-03-21 2018-03-21 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 [id number] Memoria 14:30:00 14:30:00 Pre-Reg r Cardiology 51 gladys Vieira 2018-03-21 2018-03-21 Outpatient MHIE IE [id number] Memoria 09:30:00 09:30:00 51 gladys Dariel 2018-03-21 2018-03-21 Outpatient Trent L [facility] [id number] 09:30:00 09:30:00 Chrissy 51 2018-03-08 2018-03-09 [place] [id number] Memoria 14:30:00 04:59:59 r Otolaryngol 55 l lionel canela 2018-03-08 2018-03-09 [place] [id number] Memoria 14:30:00 04:59:59 r Otolaryngol 55 l lionel Santana hilton 2018-03-08 2018-03-08 Outpatient Donereuben [facility] [id number] 09:30:00 23:59:59 Sreekrishna 55 Mahesh 2018-03-08 2018-03-08 Outpatient MHIE MHIE [id number] Memoria 09:30:00 09:30:00 55 gladys Vieira 2018-03-05 2018-03-06 Outpatient nullFlavo MG Family 4 [id number] Memoria 20:15:00 04:59:59 r Medicine 54 gladys Vieira 2018-03-05 2018-03-06 Outpatient nullFlavo [facility] Family 4 [id number] Memoria 20:15:00 04:59:59 r Medicine 54 gladys Vieira 2018-03-05 2018-03-05 Outpatient Abraham [facility] [id number] 15:15:00 23:59:59 Onofre P 54 2018-03-05 2018-03-05 Outpatient NICOLEIE NICOLEIE [id number] Memoria 15:15:00 15:15:00 54 gladys Dariel 2018-02-13 2018-02-14 Outpatient nullFlavo MG Family 4 [id number] Memoria 18:45:00 04:59:59 r Medicine 53 gladys Vieira 2018-02-13 2018-02-14 Outpatient nullFlavo [facility] Family 4 [id number] Memoria 18:45:00 04:59:59 r Medicine 53 gladys Vieira 2018-02-13 2018-02-13 Outpatient Abraham [facility] [id number] 13:45:00 23:59:59 Onofre P 53 2018-02-13 2018-02-13 Outpatient NICOLEIE NICOLEIE [id number] Memoria 13:45:00 13:45:00 53 gladys SantanaDariel 2017-10-31 2017-11-01 Outpatient nullFlavo MNA [id number] Memoria 17:00:00 04:59:59 r Neuroscienc 53 l e Mariaelena [facility] 2017-10-31 2017-11-01 Outpatient nullFlavo MNA [id number] Memoria 17:00:00 04:59:59 r Neuroscienc 53 l e Mariaelena [facility] 2017-10-31 2017-10-31 [id number] 12:00:00 23:59:59 53 2017-10-31 2017-10-31 Outpatient MHIE MHIE [id number] Memoria 12:00:00 12:00:00 52 gladys [place] 2017-09-28 2017-09-30 Phone nullFlavo MNA [id number] Memoria 18:18:00 04:59:59 Message r Neuroscienc 12 l e [facility] [place] 2017-09-28 2017-09-30 Phone nullFlavo MNA [id number] Memoria 18:18:00 04:59:59 Message r Neuroscienc 12 l e [facility] [place] 2017-09-28 2017-09-29 [id number] 13:18:00 23:59:59 12 2017-09-24 2017-09-26 Phone nullFlavo MG Family [id number] Memoria 13:37:00 04:59:59 Message r Medicine 11 gladys Vieira 2017-09-24 2017-09-26 Phone nullFlavo MG Family [id number] Memoria 13:37:00 04:59:59 Message r Medicine 11 gladys Vieira 2017-09-24 2017-09-25 Outpatient MHMG MG [id number] 08:37:00 23:59:59 11 2017-09-19 2017-09-20 [place] [id number] Memoria 14:15:00 04:59:59 r Cardiology 39 gladys Vieira 2017-09-19 2017-09-20 [place] [id number] Memoria 14:15:00 04:59:59 r Cardiology 39 gladys Vieira 2017-09-19 2017-09-19 Outpatient Gladys Newman MG MG [id number] 09:15:00 23:59:59 Chrissy 40 2017-09-19 2017-09-19 Outpatient Mazel, L MHMG MG [id number] 09:15:00 23:59:59 Chrissy 40 2017-09-19 2017-09-19 Outpatient MHIE MHIE [id number] Memoria 09:15:00 09:15:00 39 gladys Vieira 2017-08-28 2017-08-29 Outpatient nullFlavo MHMG Family 4 [id number] Memoria 20:30:00 04:59:59 r Medicine 50 gladys Vieira 2017-08-28 2017-08-29 Outpatient nullFlavo MHMG Family 4 [id number] Memoria 20:30:00 04:59:59 r Medicine 50 gladys Vieira 2017-08-28 2017-08-29 [place] [id number] Memoria 19:30:00 04:59:59 r Pulmonology 34 gladys Vieira 2017-08-28 2017-08-29 [place] [id number] Memoria 19:30:00 04:59:59 r Pulmonology 34 gladys Vieira 2017-08-28 2017-08-28 Outpatient Beth, MG MG [id number] 15:30:00 23:59:59 Mar 50 Meliza 2017-08-28 2017-08-28 Outpatient Thrasher, MG MG [id number] 14:30:00 23:59:59 Alan 34 Pinai 2017-08-28 2017-08-28 Outpatient Thrasher, MG MG [id number] 14:30:00 23:59:59 Alan 34 Pinai 2017-08-28 2017-08-28 Outpatient MHIE MHIE [id number] Memoria 15:30:00 15:30:00 49 gladys Vieira 2017-08-28 2017-08-28 Outpatient MHIE MHIE [id number] Memoria 14:30:00 14:30:00 34 gladys Vieira 2017-08-03 2017-08-04 Outpatient nullFlavo MG Family 4 [id number] Memoria 20:00:00 05:59:59 r Medicine 49 gladys Vieira 2017-08-03 2017-08-04 Outpatient nullFlavo MHMG Family 4 [id number] Memoria 20:00:00 05:59:59 r Medicine 49 gladys Vieira 2017-08-03 2017-08-03 Outpatient Beth, [facility] [id number] 14:00:00 23:59:59 Mar Casas Meliza 2017-08-03 2017-08-03 [facility] [id number] Memoria 14:00:00 14:00:00 48 gladys Vieira 2017-08-01 2017-08-03 Outside nullFlavo MG [id number] Memoria 21:46:00 05:59:59 Medical r Cardiology 10 l Maxx Vieira 2017-08-01 2017-08-03 Outside nullFlavo MG [id number] Memoria 21:46:00 05:59:59 Medical r Cardiology 10 l Maxx Vieira 2017-08-01 2017-08-02 Outpatient [facility] [id number] 15:46:00 23:59:59 10 2017-07-25 2017-07-26 Outpatient nullFlavo MG Family 4 [id number] Memoria 20:15:00 05:59:59 r Medicine 48 gladys Vieira 2017-07-25 2017-07-26 Outpatient nullFlavo MG Family 4 [id number] Memoria 20:15:00 05:59:59 r Medicine 48 gladys Vieira 2017-07-25 2017-07-26 Outpatient nullFlavo MG Family 4 [id number] Memoria 19:15:00 05:59:59 r Medicine 46 gladys Vieira 2017-07-25 2017-07-26 Outpatient nullFlavo MG Family 4 [id number] Memoria 19:15:00 05:59:59 r Medicine 46 gladys Vieira 2017-07-25 2017-07-25 Outpatient VISIT, [facility] [id number] 14:15:00 23:59:59 NURSE STWH 48 FABIOLA 2017-07-25 2017-07-25 Outpatient Beth, [facility] [id number] 13:15:00 23:59:59 Mar Haider 2017-07-25 2017-07-25 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 [facility] [id number] Memoria 20:15:00 20:15:00 Pre-Reg r Radiology 46 gladys Vieira 2017-07-25 2017-07-25 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 [id number] Memoria 20:15:00 20:15:00 Pre-Reg r Radiology 47 gladys Vieira 2017-07-25 2017-07-25 Outpatient MHIE MHIE [id number] Memoria 14:15:00 14:15:00 46 gladys Vieira 2017-07-25 2017-07-25 Outpatient MHIE MHIE [id number] Memoria 14:15:00 14:15:00 47 gladys Vieira 2017-07-25 2017-07-25 Outpatient VISIT, MG MG [id number] 14:15:00 14:15:[address] 47 XRAY 2017-07-25 2017-07-25 Outpatient MHIE MHIE [id number] Memoria 13:15:00 13:15:00 45 gladys Vieira 2017-06-28 2017-06-29 Outpatient nullFlavo MG Family 4 [id number] Memoria 16:00:00 05:59:59 r Medicine 45 gladys Vieira 2017-06-28 2017-06-29 Outpatient nullFlavo MG Family 4 [id number] Memoria 16:00:00 05:59:59 r Medicine 45 gladys Vieira 2017-06-28 2017-06-29 Outpatient nullFlavo [facility] [employer] 4 [id number] Memoria 15:00:00 05:59:59 r [place] 21 gladys Dariel 2017-06-28 2017-06-29 Outpatient nullFlavo MG [employer] 4 [id number] Memoria 15:00:00 05:59:59 r [place] 21 gladys Vieira 2017-06-28 2017-06-28 Outpatient VISIT, MG MG [id number] 10:00:00 23:59:59 NURSE STJeni 45 MAMMO 2017-06-28 2017-06-28 [place] [id number] 09:00:00 23:59:59 Brendon Mckeon 21 2017-06-28 2017-06-28 [place] [id number] 09:00:00 23:59:59 Brendon Mckeon 21 2017-06-28 2017-06-28 Outpatient Sangalli, MHMG MHMG [id number] 09:00:00 23:59:59 Brendon Mckeon 21 2017-06-28 2017-06-28 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 MHMG [id number] Memoria 16:00:00 16:00:00 Pre-Reg r Radiology 20 l Edwin Vieira 2017-06-28 2017-06-28 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 [facility]MG [id number] Memoria 16:00:00 16:00:00 Pre-Reg r Radiology 20 gladys Vieira 2017-06-28 2017-06-28 Outpatient MHIE MHIE [id number] Memoria 10:00:00 10:00:00 20 gladys Vieira 2017-06-28 2017-06-28 Outpatient MHIE MHIE [id number] Memoria 10:00:00 10:00:00 44 gladys Vieira 2017-06-28 2017-06-28 Outpatient VISIT, MHMG MHMG [id number] 10:00:00 10:00:00 [facility] 2017-06-28 Outpatient VISIT, MHMG MHMG [id number] 10:00:00 10:00:00 [facility] 2017-[facility]-28 2017-06-28 Outpatient VISIT, MHMG MHMG [id number] 10:00:00 10:00:00 [facility] 2017-06-28 2017-06-28 Outpatient MHIE MHIE [id number] Memoria 09:00:00 09:00:00 20 gladys Vieira 2017-06-21 2017-06-23 Phone nullFlavo MG [id number] Memoria 19:39:00 05:59:59 Message r Cardiology 09 gladys Vieira 2017-06-21 2017-06-23 Phone nullFlavo MG [id number] Memoria 19:39:00 05:59:59 Message r Cardiology 09 gladys Vieira 2017-06-21 2017-06-22 Outpatient MHMG MHMG [id number] 13:39:00 23:59:59 09 2017-06-14 2017-06-16 Phone nullFlavo [facility] [id number] Memoria 14:53:00 05:59:59 Message r Medicine 08 gladys Vieira 2017-06-14 2017-06-16 Phone nullFlavo [facility] Family [id number] Memoria 14:53:00 05:59:59 Message r Medicine 08 gladys Vieira 2017-06-14 2017-06-15 Outpatient MHMG MHMG [id number] 08:53:00 23:59:59 08 2017-06-14 2017-06-15 Outpatient nullFlavo MHMG Family 4 [id number] Memoria 14:15:00 05:59:59 r Medicine 42 gladys Vieira 2017-06-14 2017-06-15 Outpatient nullFlavo [facility] Family 4 [id number] Memoria 14:15:00 05:59:59 r Medicine 42 gldays Vieira 2017-06-14 2017-06-14 Outpatient Espinoza, MHMG MHMG [id number] 08:15:00 23:59:59 Luca 42 2017-06-14 2017-06-14 Outpatient MHIE MHIE [id number] Memoria 08:15:00 08:15:00 42 gladys Vieira 2017-04-27 2017-04-28 Outpatient nullFlavo MH[facility] Family 4 [id number] Memoria 15:15:00 05:59:59 r Medicine 18 gladys Vieira 2017-04-27 2017-04-28 Outpatient nullFlavo MHMG Family 4 [id number] Memoria 15:15:00 05:59:59 r Medicine 18 gladys Vieira 2017-04-27 2017-04-27 Outpatient Abraham MG MHMG [id number] 09:15:00 23:59:59 Onofre P 18 2017-04-27 2017-04-27 Outpatient MHIE MHIE [id number] Memoria 09:15:00 09:15:00 18 gladys Dariel 2017-03-21 2017-03-21 Outpatient MHIE MHIE [id number] Memoria 09:15:00 09:15:00 32 gladys Vieira 2017-03-21 2017-03-21 Outpatient MHIE MHIE [id number] Memoria 09:15:00 09:15:00 32 gladys Vieira 2017-03-14 2017-03-14 Outpatient MHIE MHIE [id number] Memoria 08:45:00 08:45:00 38 gladys Vieira 2017-03-14 2017-03-14 Outpatient MHIE MHIE [id number] Memoria 08:45:00 08:45:00 38 gladys SantanaDariel 2017-03-14 2017-03-14 Outpatient MHIE MHIE [id number] Memoria 08:30:00 08:30:00 39 gladys Vieira 2017-03-14 2017-03-14 Outpatient MHIE MHIE [id number] Memoria 08:30:00 08:30:00 39 gladys [place] 2017-03-14 2017-03-14 Outpatient MHIE MHIE [id number] Memoria 08:00:00 08:00:00 37 gladys SantanaDariel 2017-03-14 2017-03-14 Outpatient MHIE MHIE [id number] Memoria 08:00:00 08:00:00 37 gladys [place] 2017-02-05 2017-02-05 Outpatient MHIE MHIE [id number] Memoria 09:30:00 09:30:00 32 gladys [place] 2017-02-05 2017-02-05 Outpatient MHIE MHIE [id number] Memoria 09:30:00 09:30:00 32 gladys Dariel 2017-01-24 2017-01-24 Outpatient MHIE MHIE [id number] Memoria 14:30:00 14:30:00 36 gladys [place] 2017-01-24 2017-01-24 Outpatient MHIE MHIE [id number] Memoria 14:30:00 14:30:00 36 gladys Dariel 2016-12-19 2016-12-19 Outpatient MHIE MHIE [id number] Memoria 13:30:00 13:30:00 34 gladys Dariel 2016-12-19 2016-12-19 Outpatient MHIE MHIE [id number] Memoria 13:30:00 13:30:00 34 gladys [place] 2016-11-28 2016-11-28 Outpatient MHIE MHIE [id number] Memoria 12:00:00 12:00:00 31 gladys [place] 2016-11-28 2016-11-28 Outpatient MHIE MHIE [id number] Memoria 12:00:00 12:00:00 31 gladys Dariel 2016-09-15 2016-09-15 Outpatient MHIE MHIE [id number] Memoria 09:45:00 09:45:00 17 gladys Vieira 2016-09-15 2016-09-15 Outpatient MHIE MHIE [id number] Memoria 09:45:00 09:45:00 17 l [place] 2016-08-07 2016-08-07 Outpatient MHIE MHIE [id number] Memoria 09:45:00 09:45:00 25 l Dariel 2016-08-07 2016-08-07 Outpatient MHIE MHIE [id number] Memoria 09:45:00 09:45:00 25 gladys Vieira 2016-08-03 2016-08-03 Outpatient MHIE MHIE [id number] Memoria 15:00:00 15:00:00 28 l [place] 2016-08-03 2016-08-03 Outpatient MHIE MHIE [id number] Memoria 15:00:00 15:00:00 28 gladys [place] 2016-07-25 2016-07-25 Outpatient MHIE MHIE [id number] Memoria 15:00:00 15:00:00 30 gladys SantanaDariel 2016-07-25 2016-07-25 Outpatient MHIE MHIE [id number] Memoria 15:00:00 15:00:00 30 gladys [place] 2016-07-24 2016-07-24 Outpatient MHIE MHIE [id number] Memoria 15:00:00 15:00:00 29 l Dariel 2016-07-24 2016-07-24 Outpatient MHIE MHIE [id number] Memoria 15:00:00 15:00:00 29 gladys Vieira 2016-07-21 2016-07-22 Outpt Diag nullFlavo [facility] [id number] Memoria 20:03:00 05:59:00 Services r Outpatient 01 l Imaging [place] Elizabeth 2016-07-21 2016-07-22 Outpt Diag nullFlavo [facility] [id number] Memoria 20:03:00 05:59:00 Services r Outpatient 01 l Imaging Dariel Elizabeth 2016-07-21 2016-07-21 Outpatient Maryi, MH29 MH29 [id number] 14:03:00 23:59:00 Abdifatah Iniguez 2016-07-10 2016-07-10 Outpatient MHIE MHIE [id number] Memoria 13:30:00 13:30:00 26 gladys Dariel 2016-07-10 2016-07-10 Outpatient MHIE MHIE [id number] Memoria 13:30:00 13:30:00 26 gladys Dariel 2016-07-10 2016-07-10 Outpatient MHIE MHIE [id number] Memoria 09:45:00 09:45:00 24 gladys Dariel 2016-07-10 2016-07-10 Outpatient MHIE MHIE [id number] Memoria 09:45:00 09:45:00 23 gladys Vieira 2016-07-07 2016-07-08 Outpt Diag nullFlavo [facility] [id number] Memoria 16:35:00 05:59:00 Services r Outpatient 00 l Imaging Dariel Elizabeth 2016-07-07 2016-07-[place] [id number] Memoria 16:35:00 05:59:00 Services r Outpatient 00 l Imaging [place] Elizabeth 2016-07-07 2016-07-07 Outpatient Abbie, JOHN 29 [id number] 10:35:00 23:59:00 Abdifatah 00 Hira 2016-07-03 2016-07-03 Outpatient MHIE MHIE [id number] Memoria 09:00:00 09:00:00 23 gladys Dariel 2016-07-03 2016-07-03 Outpatient MHIE MHIE [id number] Memoria 09:00:00 09:00:00 23 gladys Dariel 2016-07-03 2016-07-03 Outpatient MHIE MHIE [id number] Memoria 08:45:00 08:45:00 22 gladys Dariel 2016-07-03 2016-07-03 Outpatient MHIE MHIE [id number] Memoria 08:45:00 08:45:00 22 gladys Vieira 2016-06-22 2016-06-22 Outpatient MHIE MHIE [id number] Memoria 10:30:00 10:30:00 07 gladys Vieira 2016-06-22 2016-06-22 Outpatient MHIE MHIE [id number] Memoria 10:30:00 10:30:00 07 gladys Vieira 2016-05-18 2016-05-18 Outpatient MHIE MHIE [id number] Memoria 09:45:00 09:45:00 19 gladys Vieira 2016-05-18 2016-05-18 Outpatient MHIE MHIE [id number] Memoria 09:45:00 09:45:00 19 gladys Vieira 2016-04-28 2016-04-28 Outpatient MHIE MHIE [id number] Memoria 10:00:00 10:00:00 15 gladys Vieira 2016-04-28 2016-04-28 Outpatient MHIE MHIE [id number] Memoria 10:00:00 10:00:00 15 gladys Vieira 2016-04-21 2016-04-21 Outpatient MHIE MHIE [id number] Memoria 14:30:00 14:30:00 05 gladys Vieira 2016-04-21 2016-04-21 Outpatient MHIE MHIE [id number] Memoria 14:30:00 14:30:00 05 gladys Vieira 2016-03-17 2016-03-17 Outpatient MHIE MHIE [id number] Memoria 09:45:00 09:45:00 13 gladys Vieira 2016-03-17 2016-03-17 Outpatient MHIE MHIE [id number] Memoria 09:45:00 09:45:00 13 gladys Vieira 2016-02-25 2016-02-25 Outpatient MHIE MHIE [id number] Memoria 08:30:00 08:30:00 16 gladys Vieira 2016-02-25 2016-02-25 Outpatient MHIE MHIE [id number] Memoria 08:30:00 08:30:00 16 gladys Vieira 2016-02-07 2016-02-07 Outpatient MHIE MHIE [id number] Memoria 10:15:00 10:15:00 14 gladys Vieira 2016-02-07 2016-02-07 Outpatient MHIE MHIE [id number] Memoria 10:15:00 10:15:00 14 gladys Vieira 2015-09-16 2015-09-16 Outpatient MHIE MHIE [id number] Memoria 09:45:00 09:45:00 04 gladys Vieira 2015-09-16 2015-09-16 Outpatient MHIE MHIE [id number] Memoria 09:45:00 09:45:00 04 gladys Vieira 2015-08-03 2015-08-03 Outpatient MHIE MHIE [id number] Memoria 11:00:00 11:00:00 12 gladys Vieira 2015-08-03 2015-08-03 Outpatient MHIE MHIE [id number] Memoria 11:00:00 11:00:00 11 gladys Vieira 2015-08-03 2015-08-03 Outpatient MHIE MHIE [id number] Memoria 11:00:00 11:00:00 11 gladys Vieira 2015-08-03 2015-08-03 Outpatient MHIE MHIE [id number] Memoria 11:00:00 11:00:00 12 gladys Vieira 2015-08-02 2015-08-02 Outpatient MHIE MHIE [id number] Memoria 16:15:00 16:15:00 10 gladys Vieira 2015-08-02 2015-08-02 Outpatient MHIE MHIE [id number] Memoria 16:15:00 16:15:00 10 gladys Vieira 2015-07-15 2015-07-15 Outpatient MHIE MHIE [id number] Memoria 13:45:00 13:45:00 09 gladys Vieira 2015-07-15 2015-07-15 Outpatient MHIE MHIE [id number] Memoria 13:45:00 13:45:00 09 gladys Vieira 2015-06-23 2015-06-23 Outpatient MHIE MHIE [id number] Memoria 09:30:00 09:30:00 08 gladys Vieira 2015-06-23 2015-06-23 Outpatient MHIE MHIE [id number] Memoria 09:30:00 09:30:00 08 gladys Vieira 2015-06-17 2015-06-17 Outpatient MHIE MHIE [id number] Memoria 10:00:00 10:00:00 03 gladys Vieira 2015-06-17 2015-06-17 Outpatient MHIE MHIE [id number] Memoria 10:00:00 10:00:00 06 gladys Vieira 2015-06-17 2015-06-17 Outpatient MHIE MHIE [id number] Memoria 10:00:00 10:00:00 03 gladys Vieira 2015-06-17 2015-06-17 Outpatient MHIE MHIE [id number] Memoria 10:00:00 10:00:00 06 gladys Vieira 2015-06-17 2015-06-17 Outpatient MHIE MHIE [id number] Memoria 09:45:00 09:45:00 00 gladys Vieira 2015-06-17 2015-06-17 Outpatient MHIE MHIE [id number] Memoria 09:45:00 09:45:00 00 gladys Vieira 2015-04-21 2015-04-21 Outpatient MHIE MHIE [id number] Memoria 14:45:00 14:45:00 01 gladys Vieira 2015-04-21 2015-04-21 Outpatient MHIE SYDNEE [id number] [facility] 14:45:00 14:45:00 01 gladys Dariel 2015-03-17 2015-03-17 Outpatient SAGAR KEITH [id number] [facility] 14:00:00 14:00:00 02 gladys Dariel 2015-03-17 2015-03-17 Outpatient SAGAR KEITH [id number] [facility] 14:00:00 14:00:00 02 gladys Vieira Results Test [...] code = 994) seen FUNGUS CULTURE + [id number] 16:29:00 Test Item Value Reference Range Interpretation Comments CULTURE (BEAKER) (test No fungus isolated in code = 1095) 28 days FUNGUS SMEAR (BEAKER) No fungi seen (test code = 1406) FUNGUS CULTURE + [id number] 16:29:00 Test Item Value Reference Range Interpretation Comments CULTURE (BEAKER) (test No fungus isolated in code = 1095) 28 days FUNGUS SMEAR (BEAKER) No fungi seen (test code = 1406) FUNGUS CULTURE + [id number] 16:29:00 Test Item Value Reference Range Interpretation Comments CULTURE (BEAKER) (test No fungus isolated in code = 1095) 28 days FUNGUS SMEAR (BEAKER) No fungi seen (test code = 1406) ANAEROBIC [id number] 19:02:00 Test Item Value Reference Range Interpretation Comments CULTURE (BEAKER) (test No anaerobes isolated code = 1095) ANAEROBIC [id number] 18:50:00 Test Item Value Reference Range Interpretation Comments CULTURE (BEAKER) (test No anaerobes isolated code = 1095) ANAEROBIC [id number] 18:49:00 Test Item Value Reference Range Interpretation Comments CULTURE (BEAKER) (test No anaerobes isolated code = 1095) SURGICALLY OBTAINED CULTURE + GRAM [id number] 12:55:00 Test Item Value Reference Range Interpretation Comments CULTURE (BEAKER) (test code No growth = 1095) GRAM STAIN RESULT (BEAKER) No WBCs (test code = 1123) GRAM STAIN RESULT (BEAKER) No organisms seen (test code = 79204) SURGICALLY OBTAINED CULTURE + GRAM [id number] 12:54:00 Test Item Value Reference Range Interpretation Comments CULTURE (BEAKER) (test code No growth = 1095) GRAM STAIN RESULT (BEAKER) 1+ WBCs (test code = 1123) GRAM STAIN RESULT (BEAKER) No organisms seen (test code = 02368) SURGICALLY OBTAINED CULTURE + GRAM [id number] 12:53:00 Test Item Value Reference Range Interpretation Comments CULTURE (BEAKER) (test code No growth = 1095) GRAM STAIN RESULT (BEAKER) 1+ WBCs (test code = 1123) GRAM STAIN RESULT (BEAKER) No organisms seen (test code = 38091) TISSUE [id number] 12:16:00Surgical Pathology Report Case: [id number] Authorizing Provider: Darrick Vick Collected: 01/14/2020 11:55 AM Jovi Martinez MD Ordering Location: [facility] OR Received: 01/14/2020 04:17 PM Perioperative Services Pathologist: Kenia Chaney MD Specimen: Explant, RIGHT KNEE TOTAL REVISION A. HARDWARE, REMOVAL, GROSS EXAMINATION ONLY: - HARDWARE IDENTIFIED (SEE GROSS DESCRIPTION). Signing Pathologist Direct Phone Line: [phone] signed by Kenia Chaney MD on 01/15/2020 at 12:16 [id number] 0Preop diagnosis: Mechanical loosening of internal left knee prosthetic joint, initial encounter. ExplantReceived fresh labeled with the patient's name, accession number and "right knee total revision"are three pieces of metallic alcantara to alcantara-white orthopedic hardware ranging from 6.4 to 6.5 cm in greatest dimension. The following inscription is identified: [id number] SZ2STB 2.5 PE 10 [id number] gross photograph is taken. No sections are submitted. This case is for gross examination only. PA/pl [facility], Department of Pathology, [address] [place] [id number], [facility], [address] [place] [id number], [facility], [address] [place] [id number], [employer] [id number] 05:02:00 Test Item Value Reference Range Interpretation [...] PATIEN TS. CBC W/PLT COUNT & AUTO [id number] 04:49:00 Test Item Value Reference Range Interpretation [...] PERCENT (BEAKER) (test code = 2801) SPIN/CONCENTRATION [id number] 01:24:00 Test Item Value Reference Range Interpretation Comments CONCENTRATION CHARGED (BEAKER) (test Done code = 2657) RAD, KNEE, 1 OR 2 VIEWS, [id number] 17:25:00AP and lateral views of the prosthetic [...] Verified Date/Time: 01/14/2020 17:25:10 Reading Location: [facility] [place] [id number] Notes Date/Time Note Provider Source 2020-01-14 DARRICK VICK [facility] 17:49:15-00:00 OPERATIVE/PROCEDURE REPORT MAX BOUDREAUX FACILITY: [facility] Billing #: [id number] Room: [place] [address] MR #: [id number] : 1940 DATE OF PROCEDURE: 01/14/2020 SURGEON: Darrick Vick Jr, MD PREOPERATIVE DIAGNOSIS: 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 POSTOPERATIVE DIAGNOSIS: Aseptic loosening of ri ght total knee arthroplasty. PROCEDURE: Revision of both components of right total knee arthroplasty, CPT code 15398. ASSISTANTS: 1. Jorge Hanna. 2. Lior Liu [...] patient t olerated this procedure well. JENAE/ALEJANDRA /[id number] 2019-06-17 PROCEDURE INFORMATION: Tanesha Vieira 14:46:00-00:00 Exam: XR Abdomen, 2 Views Exam date [...] material. Murali Rojas MD On 06/17/2019 15:17:09; VR-W [id number] 2019-06-17 PROCEDURE INFORMATION: [facility] 14:46:00-00:00 Exam: XR Chest, 2 Views Exam date [...] abnormalities. Jer Quinteros MD On 06/17/2019 15:16:25; V [id number] 2018-07-11 [facility] [place] [facility] 08:50:00-00:00 UNILATERAL RIGHT DIGITAL DIAGNOSTIC MAMMOGRAM 3D /2D WITH CAD: 07/11/2018 CLINICAL: /R92.8 Other Abnor mal And Inconclusive Findings On Diagnostic Imaging Of Breast. Current study was evaluated with a Printer Slotter Helper d Detection (CAD) system. COMPARISON:Comparison is mad e to exams dated: 07/08/2018 mammogram, 06/28/2017 mammogram, 06/22/2016 mammogram, 06/17/2015 mammogram, 06/15/2014 mammogram, and 02/17/2013 mammogram - [facility]. TECHNIQUE: Digital Breast To mosynthesis was performed [...] st on spot compression views, consistent with mcknight mmation artifact. No significant masses, calci fications, or other findings are seen in the breast. IMPRESSION: NEGATIVE RECOMMENDATION: No suspicious mammographic findings in the right breast. The previously described rig ht breast asymmetries corresponds to summation artifact. There is no mammographic sandra dence of malignancy. A 1 year screening mammogram is recommended. (07/12/2019) This exam was interpreted at [id number] at [facility] [place]. Professional services are pr ovided by the [facility]. Brandon Browne M.D. lr/:07/11/2018 09:28:13 Dye House Hand(s): Arti Collado, [facility] letter sent: BI-RADS 1/2 Mammogram BI-RADS: 1 Negative 2018-07-09 PROCEDURE: DEXA BONE DENSITY STUDY. [facility] 10:49:00-00:00 INDICATION: Osteoporosis. COMPARISONS: 06/23/2015 TECHNIQUE: Lumbar spine [...] of age in the femoral neck.) SL: [id number] 2018-07-08 [facility] 09:40:00-00:00 BILATERAL DIGITAL SCREENING MAMMOGRAM WITH CAD: 07/08/2018 CLINICAL: Screening/Screening. Current study was evaluated with a Printer Slotter Helper d Detection (CAD) system. COMPARISON:Comparison is mad e to exams dated: 06/28/2017 mammogram, 06/22/2016 mammogram, 06/17/2015 mammogram, 06/15/2014 mammogram, and 02/17/2013 mammogram - [facility]. TECHNIQUE: Mammographic view s were obtained using [...] are recommended. This exam was interpreted at [id number] for [facility]. Orion aguirre/penrad:07/08/2018 10:20:45 Dye House Hand(s): Angela Birmingham, [facility] letter sent: BI-RADS 0 Mammogram BI-RADS: 0 Indeterminate 2017-07-25 Procedure: Lumbar Spine Radiographs. [facility] 14:11:44-00:00 Clinical Indication: Back pain, no known injury. Comparison: None. FINDINGS: The 3 views of the lumbar sp ine show degenerative change most pronounced at L4- L5 and L5-S1 including narrowing of the intervertebral disc spaces, marginal osteophyte formation and facet joint hypertrop hy. No acute displaced fract ure or spondylolisthesis is observed. Vascular calcifications are noted. IMPRESSION: 1. Degenerative change. SL:[id number] 2017-07-25 Procedure. Cervical Spine Radiographs. [facility] 14:11:42-00:00 Clinical Indication: Neck pain, no known injury. Comparison: Radiograph of the cervical spine . FINDINGS: The 3 views of the cervical spine show degenerative change from C3 through C7 including narrowing of the intervertebral disc spaces, marginal osteophyte formation and facet joint hypertrophy. No acute displaced fracture or subluxation is observed. IMPRESSION: 1. Degenerative change. SL:[id number] 2017-06-28 [facility] 10:08:21-00:00 BILATERAL DIGITAL SCREENING MAMMOGRAM WITH CAD: 06/28/2017 CLINICAL: Screening/Screening. Current study was evaluated with a Printer Slotter Helper d Detection (CAD) system. COMPARISON:Comparison is mad e to exams dated: 06/22/2016 mammogram, 06/17/2015 mammogram, 06/15/2014 mammogram, and 02/17/2013 mammogram - [facility]. TECHNIQUE: Mammographic view s were obtained using [...] is recommended.(06/29/2018) This exam was interpreted at [id number] for [facility]. Orion aguirre/lacie:06/28/2017 14:01:38 Dye House Hand(s): Angela Birmingham, [facility] letter sent: BI-RADS 1/2 Mammogram BI-RADS: 2 Benign 2017-03-14 Clinical Indication: - headache; [facility] 08:55:13-00:00 Comparison: None FINDINGS: The 3 views of [...] maxillary sinus. Air-fluid levels are identified.. 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 2. Moderate coronary artery calcifications. 2016-07-07 STUDY: CT abdomen and pelvis with and without co ntrast. [facility] 11:42:22-00:00 COMPARISON: None. HISTORY: RLQ pain. TECHNIQUE: Contiguous axial images of the abdomen and pelvis were obtained before and after intravenous contrast administration including delayed images. Enteric contrast was given. Sagittal and coronal reformats were performed. DLP: 1685 mGy-cm. Con trast dose: 100ml Omnipaque. FINDINGS: Lung bases: Several [...] diverticulosis without diverticulitis. Cholelithiasis without acute cholecystitis. 2016-07-03 EXAM: Abdomen one view 07/03/2016 9:46 AM [facility] 09:20:36-00:00 HISTORY: 75 years Female right upper quadrant ab dominal pain COMPARISON: None available. FINDINGS: There is a nonobst ructive bowel gas pattern, with mild colonic stool. Probable vascular calcifications are noted in the pelvis. No evidence of mass effect or organomegaly. There is moderate lo wer lumbar degenerative change. No acute bony ab normalities are seen. IMPRESSION: 1. Nonobstructive bowel gas pattern. 2016-06-22 - DIGITAL MAMMO SCREENING PANCHO [facility] 10:25:17-00:00 BILATERAL DIGITAL SCREENING MAMMOGRAM WITH CAD: 06/22/2016 CLINICAL: Screening. Current study was evaluated with a Printer Slotter Helper d Detection (CAD) system. Comparison is made to exams dated: 06/15/2014 mammogram and 06/17/2015 mammogram - [facility]. There are scattered fibroglandular densities in both breasts. There are benign calcifications in the right annamaria ast. No significant masses, calci fications, or other findings are seen in either breast. There has been no significant interval change. IMPRESSION: BENIGN There is no mammographic sandra dence of malignancy. A 1 year screening mammogram is recommended. Apolinar sam/lacie:07/11/2016 13:14:10 Dye House Hand: Lanette Birmingham, [facility] This exam was dictated and i nterpreted by [id number] for [facility]. letter sent: Normal exam Mammogram BI-RADS: 2 Benign 2015-08-03 Exam: Cervical spine x-ray, 5 views [facility] 11:01:04-00:00 Reason for Exam: NECK PAIN Comparison Exam: [...] lower cervical spine. Prevertebral soft tissue is w ithin normal limits. Lateral masses of C1 and dens of C2 are not adequately seen on frontal view. Please note that a cervical spine x-ray cannot rule out ligamentous injuries or spinal cord abnormalities. Visualized portions of the lung apices are unremarkable. Impression: 1. Moderate multilevel degen erative disc disease. On oblique views, there is neural foraminal encroachment within the mid and lower cervical spine. 2015-06-23 - Bone Density [employer] [facility] 09:42:20-00:00 BONE DENSITY EVALUATION: 06/23/2015 COMPARISON: 02/04/2013 Left femur neck u sing a Hologic unit from [facility] with reported normal fracture risk, BMD of 0.813g/cm2 and T-score of -1.00. 02/04/2013 AP L1-L4 region o f spine using a Hologic unit from [facility] with reported normal fracture risk, BMD of 1.040g/cm2 and T-score of -1.00. FINDINGS: Bone density evaluation was performed 06/23/2015 on the AP L1-L4 region of spine using a Hologic unit. The BMD average for the exam is 1.091 g/cm2. The T- score is -0.50. Since the previous similar exam of 02/04/2013, there has bee n a +0.051 or +4.9% change in the BMD value which represents no significant interval change in bone density. This matches the World Health Organization's criteria fo r normal bone density and pl aces the patient within normal limits of fracture risk. An additional bone density e valuation was performed 06/23/2015 on the left femur neck using a Hologic unit. The BMD average for the exam is 0.778 g/cm2. The T-score is -1.20. Since the previous similar exam of 02/04/2013, there jon s been a -0.035 or -4.3% change in the BMD value which represents no significant interval change in bone density. This matches the World Health Organization's criter ia for osteopenia and places the patient at a me dium risk for fracture. An additional bone density e valuation was performed 06/23/2015 on the left femur trochanter using a Hologic unit. The BMD average for the exam is 0.940 g/cm2. The T-score is -0.60. This matches the [facility]'s crit eria for normal bone density and places the patient within normal limits of fracture risk. IMPRESSION: OSTEOPENIA Patient is at medium risk for fracture. This exam was dictated and i nterpreted by [id number] [facility]. Kimo rose/penrad:06/24/2015 15:24:43 Dye House Hand: Pham Tinoco [facility] 2015-06-17 - DIGITAL MAMMO SCREENING PANCHO [facility] 10:07:15-00:00 BILATERAL DIGITAL SCREENING MAMMOGRAM WITH CAD: 06/17/2015 CLINICAL: Screening. Current study was evaluated with a Printer Slotter Helper d Detection (CAD) system. Comparison is made to exams dated: 06/15/2014 mammogram and 02/17/2013 mammogram - [facility]. The tissue of both breasts i s heterogeneously dense, which could obscure detection of small masses. No significant masses, calci fications, or other findings are seen in either breast. There has been no significant interval change. IMPRESSION: NEGATIVE There is no mammographic sandra dence of malignancy. A 1 year screening mammogram is recommended. Kimo rose/penrad:06/17/2015 13:47:44 Dye House Hand: Pham Tinoco [facility] This exam was dictated and i nterpreted by [id number] for [facility]. letter sent: Normal exam Mammogram BI-RADS: 1 Negative
[2022-12-24] MEDS ORDERED: NA CHLORIDE 0.9% 500 ML ONE (18:03)
[2022-12-24] MEDS ORDERED: ACETAMINOPHEN 500 MG TAB ONE (18:03)
[2022-12-24 18:22] LABS: Absolute Lymphocytes (CBC) 1.3 K/uL (0.7-4.9); Lymphocytes % 13.4 % (15.3-44.8); MCV 89.6 fL (80-100); RBC Red Blood Cell Count 4.25 M/uL (3.86-4.86); Specific Gravity 1.017 (1.005-1.030); Urine Bilirubin NEGATIVE (Negative); Urine Blood Negative (Negative); Urine Clarity Clear (Clear); Urine Color Light-Yellow (Yellow); Urine Glucose NEGATIVE (Negative); Urine Protein NEGATIVE (Negative); Urine Urobilinogen Normal (Normal); Urine pH 6.5 (5.0-7.0)
[2022-12-24 18:25] LABS: Protime INR 1.16
[2022-12-24 18:40] LABS: Albumin 4.3 g/dL (3.4-5.0); Bilirubin Total 0.5 mg/dL (0.2-1.0); Protein, Total 8.6 g/dL (6.4-8.2)
--- NOTE | 2022-12-24 19:37 | RAD REPORT ---
EXAM DESCRIPTION: RAD - Chest Pa And Lat (2 Views) - 12/24/2022 7:05 pm CLINICAL HISTORY: COUGH COMPARISON: Chest Single View dated 08/12/2020; Chest Pa And Lat (2 Views) dated 01/05/2020; CHEST PA A ND LAT 2 VIEW dated 04/21/2010 TECHNIQUE: PA and lateral views of the chest were obtained. FINDINGS: The lungs are clear. Heart size is normal and central vasculature is within normal limits. No pleural effusion or pneumothorax seen. No acute bony finding noted. IMPRESSION: No acute cardiopulmonary process.
--- NOTE | 2022-12-24 21:24 | EDPHYS ---
Physician Documentation [facility] Name: Bo Boudreaux Age: 82 yrs Sex: Female : 1940 Arrival Date: 12/24/2022 Time: 17:00 Bed 6 Private MD: Oscar Barrera V ED Physician Alex Shelley HPI: 12/24 17:35 This 82 yrs old Black Female presents to ER via Ambulatory with complaints of Cough, cp Headache. 17:35 The patient or guardian reports cough, with productive sputum. cp 17:35 Onset: The symptoms/episode began/occurred yesterday. Severity of symptoms: in the emergency department the symptoms are unchanged, despite home interventions. Associated signs and symptoms: Pertinent positives: sore throat, headache, chills, Pertinent negatives: chest pain, diarrhea, fever, vomiting. Historical: - Allergies: 17:08 PENICILLINS; iw - PMHx: 17:08 Hyperlipidemia; Hypertension; iw - Immunization history:: Client reports receiving the 2nd dose of the Covid vaccine. - Social history:: Smoking status: Patient denies any tobacco usage or history of. ROS: 17:40 Constitutional: Positive for body aches, chills, Negative for fever, poor PO intake. cp 17:40 Eyes: Negative for injury, pain, redness, and discharge. cp 17:40 ENT: Positive for sore throat, Negative for drainage from ear(s), ear pain, difficulty swallowing, difficulty handling secretions. 17:40 Cardiovascular: Negative for chest pain, edema, palpitations. 17:40 Respiratory: Positive for cough, "sounds productive", Negative for shortness of breath, wheezing. 17:40 Abdomen/GI: Negative for abdominal pain, vomiting, diarrhea, constipation. 17:40 Back: Negative for pain at rest, pain with movement. 17:40 Neuro: Positive for headache, Negative for altered mental status, dizziness, syncope, weakness. 17:40 All other systems are negative. Exam: 17:45 Constitutional: The patient appears in no acute distress, alert, awake, cp non-diaphoretic, non-toxic, well developed, well nourished. 17:45 Head/Face: Normocephalic, atraumatic. cp 17:45 Eyes: Periorbital structures: appear normal, Conjunctiva: normal, no exudate, no injection, Sclera: no appreciated abnormality, Lids and lashes: appear normal, bilaterally. 17:45 ENT: External ear(s): are unremarkable, Ear canal(s): are normal, clear, TM's: dullness, bilaterally, Nose: is normal, Mouth: Lips: moist, Oral mucosa: moist, Posterior pharynx: Airway: no evidence of obstruction, patent, Tonsils: with erythema, no enlargement, no exudate, swelling, is not appreciated, erythema, that is mild, exudate, is not appreciated. 17:45 Neck: ROM/movement: is normal, is supple, without pain, no range of motions limitations, no meningismus, no nuchal rigidity. 17:45 Chest/axilla: Inspection: normal, Palpation: is normal, no crepitus, no tenderness. 17:45 Cardiovascular: Rate: tachycardic, Rhythm: regular, Edema: is not appreciated, JVD: is not appreciated. 17:45 Respiratory: the patient does not display signs of respiratory distress, Respirations: normal, no use of accessory muscles, no retractions, labored breathing, is not present, Breath sounds: decreased breath sounds, are not appreciated, stridor, is not appreciated, + upper airway congestion. wheezing: is not appreciated. 17:45 Abdomen/GI: Inspection: abdomen appears normal, Bowel sounds: active, all quadrants, Palpation: abdomen is soft and non-tender, in all quadrants. 17:45 Back: pain, is absent, ROM is normal. 17:45 Skin: cellulitis, is not appreciated, no rash present. 17:45 Neuro: Orientation: to person, place \\T\\ time. Mentation: is normal, Motor: moves all fours, strength is normal, Sensation: is normal. 18:22 ECG was reviewed by the Attending Physician. cp Vital Signs: 17:07 BP 139 / 67; Pulse 115; Resp 18; Temp 100.1(O); Pulse Ox 97% ; Weight 74.84 kg; Height iw 5 ft. 5 in. ; 18:22 BP 137 / 53; Pulse 101; Resp 15; Pulse Ox 98% ; Pain 4/10; jl7 19:30 BP 138 / 61; Pulse 92; Resp 15; Pulse Ox 100% ; vc1 20:30 BP 123 / 61; Pulse 91; Resp 15; Pulse Ox 98% ; vc1 21:15 BP 91 / 68; Pulse 90; Resp 14; Pulse Ox 99% ; vc1 21:29 Temp 99; vc1 17:07 Body Mass Index 27.46 (74.84 kg, 165.1 cm) iw 18:22 Pain Scale: Adult jl7 MDM: 17:10 Patient medically screened. cp 21:24 Data reviewed: vital signs, EMS record, lab test result(s), EKG, radiologic studies, cp plain films. 21:24 Consideration of Admission/Observation Escalation of care including cp admission/observation considered. I considered the following discharge prescriptions or medication management in the emergency department Medications were administered in the Emergency Department. See MAR. Care significantly affected by the following chronic conditions: Hypertension. Counseling: I had a detailed discussion with the patient and/or guardian regarding: the historical points, exam findings, and any diagnostic results supporting the discharge/admit diagnosis, lab results, radiology results, the need for outpatient follow up, a family practitioner, to return to the emergency department if symptoms worsen or persist or if there are any questions or concerns that arise at home. Response to treatment: the patient's symptoms have markedly improved after treatment, VSS. Patient appears non-toxic and no signs of respiratory distress. Will discharge to home for continued monitoring. 12/24 17:26 Order name: Strep 12/24 17:26 Order name: Blood Culture Adult (2) 12/24 17:26 Order name: CBC with Diff; Complete Time: 18:57 12/24 18:58 Interpretation: Normal except: LYM% 13.4; MN% 14.2; MNA 1.4. 12/24 17:26 Order name: CMP; Complete Time: 18:57 12/24 18:57 Interpretation: Normal except: NA 135; GLUC 110; BUN 21; CRE 1.10; GFR 50; TP 8.6; GLOB cp 4.3; A/G 1.0. 12/24 17:26 Order name: Lactate w/ 2H reflex if indic.; Complete Time: 18:57 12/24 18:59 Interpretation: LAC 1.2; Reviewed. 12/24 17:26 Order name: Protime (+inr); Complete Time: 18:57 12/24 18:59 Interpretation: Reviewed. 12/24 17:26 Order name: Urinalysis w/ reflexes; Complete Time: 18:57 12/24 18:59 Interpretation: Reviewed. 12/24 18:36 Order name: Throat Culture EDID 12/24 20:09 Order name: Influenza Screen (a \\T\\ B) 12/24 20:46 Order name: SARS-COV-2 RT PCR EDID 12/24 17:26 Order name: XRAY Chest Pa And Lat (2 Views); Complete Time: 20:10 12/24 20:10 Interpretation: Report reviewed. 12/24 17:26 Order name: EKG; Complete Time: 17:28 12/24 17:26 Order name: Accucheck; Complete Time: 18:21 12/24 17:26 Order name: Cardiac monitoring; Complete Time: 18:21 12/24 17:26 Order name: EKG - Nurse/Tech; Complete Time: 18:21 12/24 17:26 Order name: IV Saline Lock - Large Bore; Complete Time: 18:21 12/24 17:26 Order name: Labs collected and sent; Complete Time: 18:21 12/24 17:26 Order name: O2 Per Protocol; Complete Time: 18:21 12/24 17:26 Order name: O2 Sat Monitoring; Complete Time: 18:21 12/24 17:26 Order name: Vital Signs; Complete Time: 18:21 cp EC:22 Rate is 102 beats/min. Rhythm is regular. UT interval is normal. QRS interval is cp normal. QT interval is normal. T waves are Inverted in lead aVR. Interpreted by me. Reviewed by me. Administered Medications: 18:20 Drug: NS 0.9% IV 250 ml Route: IV; Rate: bolus; Site: right antecubital; jl7 19:21 Follow up: IV Status: Completed infusion; IV Intake: 250ml jl7 18:20 Drug: NS 0.9% IV 250 ml Route: IV; Rate: 75 ml/hr; Site: right antecubital; jl7 18:24 Drug: Acetaminophen PO 1000 mg Route: PO; jl7 Disposition Summary: 12/24/22 21:24 Discharge Ordered Location: Home cp Problem: new cp Symptoms: have improved cp Condition: Stable cp Diagnosis - SARS-associated coronavirus as the cause of diseases classified elsewhere cp - Headache cp Followup: cp - With: Private Physician - When: 2 - 3 days - Reason: Recheck today's complaints Discharge Instructions: - Discharge Summary Sheet cp - Aspirin and Your Heart cp - COVID-19 cp - How to Protect Yourself and Others - [facility] (08/05/2021) cp - 10 Things You Can Do to Manage Your COVID-19 Symptoms at Home - [facility] (12/24/2020) cp - COVID-19: Quarantine and Isolation - [facility] (09/07/2021) cp - COVID-19: What to Do If You Are Sick - [facility] (08/30/2021) cp Forms: - Medication Reconciliation Form cp - Thank You Letter cp - Antibiotic Education cp - Prescription Opioid Use cp - Patient Portal Instructions cp Prescriptions: - Bromfed DM 2-30-10 mg/5 mL Oral syrup - administer 10 milliliter by ORAL route every 6 hours As needed as needed for cp cold symptoms; 180 milliliter; Refills: 0, Product Selection Permitted - Paxlovid 150-100 mg Oral Tablet, Dose Pack - take 1 dose pack by ORAL route per package directions for 5 days; 30 tablet; cp Refills: 0, Product Selection Permitted Signatures: Dispatcher [employer] Kerri Scott RN ADRIANA iw Alex Love PA PA cp Leal, Jahala RN RN jl7 Corrections: (The following items were deleted from the chart) 17:09 17:08 Allergies: PENICILLINS; [facility] 20:46 20:10 SARS-COV-2 Antigen Rapid+I.LAB.BRZ ordered. BAKARIID MASOOD
--- NOTE | 2022-12-24 21:24 | ER ---
Nurse's Notes [facility] Name: Bo Boudreaux Age: 82 yrs Sex: Female : 1940 Arrival Date: 12/24/2022 Time: 17:00 Bed 6 Private MD: Oscar Barrera V Diagnosis: SARS-associated coronavirus as the cause of diseases classified elsewhere;Headache Presentation: 12/24 17:07 Chief complaint: Patient states: Headache, cough, sore throat, feels cold, started iw yesterday. Coronavirus screen: Client presents with at least one sign or symptom that may indicate coronavirus-19. Ebola Screen: Patient negative for fever greater than or equal to 101.5 degrees Fahrenheit, and additional compatible Ebola Virus Disease symptoms Patient denies exposure to infectious person. Patient denies travel to an Ebola-affected area in the 21 days before illness onset. No symptoms or risks identified at this time. Initial Sepsis Screen: Does the patient meet any 2 criteria? No. Patient's initial sepsis screen is negative. Does the patient have a suspected source of infection? No. Patient's initial sepsis screen is negative. Risk Assessment: Do you want to hurt yourself or someone else? Patient reports no desire to harm self or others. Onset of symptoms was December 23, 2022. 17:07 Method Of Arrival: Ambulatory iw 17:07 Acuity: JORJE 3 iw Historical: - Allergies: 17:08 PENICILLINS; iw - PMHx: 17:08 Hyperlipidemia; Hypertension; iw - Immunization history:: Client reports receiving the 2nd dose of the Covid vaccine. - Social history:: Smoking status: Patient denies any tobacco usage or history of. Screenin:22 [facility] ED Fall Risk Assessment (Adult) History of falling in the last 3 months, jl7 including since admission No falls in past 3 months (0 pts) Confusion or Disorientation No (0 pts) Intoxicated or Sedated No (0 pts) Impaired Gait Yes (1 pt) Mobility Assist Device Used No (0 pt) Altered Elimination No (0 pt) Score/Fall Risk Level 0 - 2 = Low Risk Oriented to surroundings, Maintained a safe environment. Abuse screen: Denies threats or abuse. Denies injuries from another. Nutritional screening: No deficits noted. Tuberculosis screening: No symptoms or risk factors identified. Assessment: 17:46 General: Appears in no apparent distress. uncomfortable, Behavior is calm, cooperative, jl7 appropriate for age. Pain: Complains of pain in SPARKS Pain currently is 4 out of 10 on a pain scale. Neuro: Level of Consciousness is awake, alert, obeys commands, Oriented to person, place, time, situation. Cardiovascular: Patient's skin is warm and dry. Respiratory: Airway is patent Respiratory effort is even, unlabored, Respiratory pattern is regular, symmetrical. GI: Patient currently denies diarrhea, nausea, vomiting. Derm: Skin is pink, warm \T\ dry. 19:00 Reassessment: No changes from previously documented assessment. Patient and/or family vc1 updated on plan of care and expected duration. Pain level reassessed. Patient is alert, oriented x 3, equal unlabored respirations, skin warm/dry/pink. 20:00 Reassessment: No changes from previously documented assessment. Patient and/or family vc1 updated on plan of care and expected duration. Pain level reassessed. Patient is alert, oriented x 3, equal unlabored respirations, skin warm/dry/pink. 21:00 Reassessment: No changes from previously documented assessment. Patient and/or family vc1 updated on plan of care and expected duration. Pain level reassessed. Patient is alert, oriented x 3, equal unlabored respirations, skin warm/dry/pink. Vital Signs: 17:07 BP 139 / 67; Pulse 115; Resp 18; Temp 100.1(O); Pulse Ox 97% ; Weight 74.84 kg; Height iw 5 ft. 5 in. ; 18:22 BP 137 / 53; Pulse 101; Resp 15; Pulse Ox 98% ; Pain 4/10; jl7 19:30 BP 138 / 61; Pulse 92; Resp 15; Pulse Ox 100% ; vc1 20:30 BP 123 / 61; Pulse 91; Resp 15; Pulse Ox 98% ; vc1 21:15 BP 91 / 68; Pulse 90; Resp 14; Pulse Ox 99% ; vc1 21:29 Temp 99; vc1 17:07 Body Mass Index 27.46 (74.84 kg, 165.1 cm) iw 18:22 Pain Scale: Adult jl7 ED Course: 17:02 Patient arrived in ED. am2 17:02 Oscar Barrera MD is Private Physician. am2 17:06 Alex Love PA is PHCP. cp 17:06 Alex Shelley MD is Attending Physician. cp 17:08 Triage completed. iw 17:08 Arm band placed on. iw 17:10 Umang Tripathi RN is Primary Nurse. jl7 18:05 Inserted saline lock: 20 gauge in right antecubital area, using aseptic technique. jl7 Blood collected. 18:05 Initial lab(s) drawn, by me, sent to lab. First set of blood cultures drawn by me. jl7 Urine collected: clean catch specimen, clear, EKG done, by ED staff, reviewed by Alex Shelley MD Strep swab sent to lab. 18:22 Patient has correct armband on for positive identification. Bed in low position. Call jl7 light in reach. Side rails up X 1. Pulse ox on. NIBP on. Warm blanket given. 19:07 XRAY Chest Pa And Lat (2 Views) In Process Unspecified. EDMS 19:38 Primary Nurse role handed off by Umang Tripathi RN jl7 20:26 Tammi Pearson RN is Primary Nurse. vc1 20:26 Influenza Screen (a \T\ B) Sent. vc1 21:34 No provider procedures requiring assistance completed. IV discontinued, intact, vc1 bleeding controlled, No redness/swelling at site. Pressure dressing applied. 21:37 Provided Education on: quarantine for 5 days; prescriptions. vc1 Administered Medications: 18:20 Drug: NS 0.9% IV 250 ml Route: IV; Rate: bolus; Site: right antecubital; jl7 19:21 Follow up: IV Status: Completed infusion; IV Intake: 250ml jl7 18:20 Drug: NS 0.9% IV 250 ml Route: IV; Rate: 75 ml/hr; Site: right antecubital; jl7 18:24 Drug: Acetaminophen PO 1000 mg Route: PO; jl7 Medication: 18:22 VIS not applicable for this client. jl7 Intake: 19:21 IV: 250ml; Total: 250ml. jl7 Outcome: 21:24 Discharge ordered by . cp 21:37 Discharged to home ambulatory, with family. vc1 21:37 Condition: good 21:37 Discharge instructions given to patient, Instructed on discharge instructions, follow up and referral plans. medication usage, Demonstrated understanding of instructions, follow-up care, medications, Prescriptions given X 2. 21:38 Patient left the ED. vc1 Signatures: Dispatcher [employer] EDMS Kerri Leong RN RN Alex Love PA PA cp Leal, Jahala, RN RN jl7 [place] Vanessa, RN RN vc1 Corrections: (The following items were deleted from the chart) 17: 17:07 Acuity: JORJE 4 [facility] 17:09 17:08 Allergies: PENICILLINS; [facility] 20:46 20:26 SARS-COV-2 Antigen Rapid+I.LAB.BRZ drawn and sent. vc1 EDMS
[2022-12-24 21:50] VITALS: BP 91/68; O2SAT 99
[2022-12-24 21:51] VITALS: TEMP 99
--- NOTE | 2022-12-25 11:44 | EKG ---
Test Date: 2022-12-24 Test Time: 18:16:18 Finish Carpenter: FERNANDO MEASUREMENT RESULTS: Intervals: Rate: 102 MI: 126 QRSD: 80 QT: 332 QTc: 432 [place]: P: 70 MI: 126 QRS: 55 T: 70 INTERPRETIVE STATEMENTS: Sinus tachycardia Otherwise normal ECG Compared to ECG 08/12/2020 15:05:58 Sinus rhythm no longer present Electronically Signed On 12-25-22 11:43:00 CDT by Kannan Eagle
== END 2022-12-24 21:38 | disposition home or self-care (01) ==
LOC: ER 17:00
DX: U07.1 COVID-19 (principal); R05.9 Cough, unspecified; I10 Essential (primary) hypertension; Z88.0 Allergy status to penicillin
CPT/HCPCS: 96365; 93005; 87040 ×2; 87070; 85025; 36415; 85610; 87081; 83605; 81003; 80053; 87635; 87804 ×2; 71046; 99285; J7040

== ENCOUNTER 2023-01-09 09:33 | Emergency (ER) | payer OTHER ==
--- OUTSIDE RECORDS SUMMARY | 2023-01-09 09:42 | XMS REPORT | Continuity of Care Document ---
:1940 Author Organization [facility] t Address [address]. [address] [place] [address] Care Team Providers Name Role Phone Oscar [...] CARLO HERNANDEZ Attending Clinician Unavailable Doctor Unassigned, [place] Attending Clinician Unavailable Mar Campos Attending Clinician Gladys Newman Attending Clinician Brendon Matthews Attending Clinician VISIT, NURSE STC MAMMO Attending Clinician Unavailable VISIT, NURSE [facility] XRAY Attending Clinician Unavailable José Miguel Matos Attending Clinician Luca Doran Attending Clinician Onofre Rosario Attending Clinician Alan Thrasher Attending Clinician Vanessa Mathur Attending Clinician [phone] VISIT, NURSE STCURT WALKER Attending Clinician Unavailable Raymond Willis Mahesh Attending Clinician Abdifatah Leiva Attending Clinician DARRICK VICK Admitting Clinician Unavailable Payers Payer Name Policy Type Policy Number Effective Date Expiration Date Telma [employer]AW HMO POS [id number] 2018 00:00:00 Problems Condition Condition Condition Status [...] PAIN K57.3 PAIN K57.3 Active 07/04/2016 OPID Hettinger History of History Problem Active 2019-11-27 Memoria polyp of of polyp 09-07 21:25:13 l colon of colon 00:00: Dariel (situation (situation 00 ) ) Active 09/07/2014 Problem 11/27/2019 Data migrated from [employer] on 12/16/14.
Data migrated from [employer] on 12/16/14. 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
Data migrated from [employer] on 12/16/14.
Data migrated from [employer] on 11/07/14. [facility] [place] [facility], OPID Hettinger Edema Edema Problem Active 2019-11-27 Memor ia (finding) (finding) 01-21 21:25:13 l Active 00:00: Dariel 01/21/2013 00 Problem 11/27/2019 Data migrated from [employer] on 11/07/14. Medical Group,[facility] [place] [facility], OPID Hettinger Hypertensi Hypertens Problem Active 2017-06-18 Memoria ve episode ernst 01-21 03:07:06 l (disorder) episode 00:00: Jodi nn (disorder) 00 Active 01/21/2013 Problem 06/18/2017 Data migrated from [employer] on 11/07/14. Medical Group, OPID Hettinger Hyperlipid Hyperlipi Problem Active 2016-07-24 Memoria emia demia 01-21 02:33:04 l (disorder) (disorder) 00:00: He rmann Active 00 01/21/2013 Problem 07/24/2016 Data migrated from [employer] on 12/16/14.
Data migrated from [employer] on 11/07/14. OPID Hettinger Diverticul Diverticu Problem Active 2019-11-27 Memoria ar disease lar 01-02 21:25:13 l of colon disease of 00:00: Herm hilton (disorder) colon 00 (disorder) Active 01/02/2013 Problem 11/27/2019 Data migrated from [employer] on 11/07/14. Medical Group,[facility] [place] [facility], OPID Hettinger Internal Internal Problem Active 2019-11-27 Memoria hemorrhoid hemorrhoid 01-02 21:25:13 l s s 00:00: Edwards (disorder) (disorder) 00 Active 01/02/2013 Problem 11/27/2019 Data migrated from [employer] on 11/07/14. Medical Group,[facility] [place] [facility], OPID Hettinger Osteoarthr Osteoarth Problem Active 2011-062019-11-27 Memoria itis ritis 08-08 21:25:13 l (disorder) (disorder) 00:00: He rmann Active 00 06/07/2012 Problem 11/27/2019 Data migrated from [employer] on 11/07/14. 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 21:25:13 l s s Dariel (disorder) (disorder) Active Problem 11/27/2019 Medical [facility], OPID Hettinger Gallbladde Problem Active 2019-11-27 M emoria r calculus Gallbladde 21:25:13 l (disorder) r calculus He rmann (disorder) Active Problem 11/27/2019 Medical [facility], OPID Hettinger Degenerati Problem Active 2019-11-27 M emoria on of Degenerati 21:25:13 l cervical on of Edwards interverte cervical bral disc interverte (disorder) bral disc (disorder) Active Problem 11/27/2019 Medical [facility], OPID Hettinger Drug Drug Problem Active 2019-11-27 Memor ia therapy therapy 21:25:13 l finding finding Dariel (finding) (finding) Active Problem 11/27/2019 Medical [facility], OPID Hettinger 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 21:25:13 l (disorder) of vulva Herm hilton (disorder) Active Problem 11/27/2019 Medical [facility], OPID Hettinger Eczema Eczema Problem Active 2019-11-27 Vasile roberto (disorder) (disorder) 21:25:13 l Active Dariel Problem 11/27/2019 Medical Group, OPID Hettinger Finding of Finding Problem Active 2019-11-27 Memoria body mass of body 21:25:13 l index mass index Berhane ryan (finding) (finding) Active Problem 11/27/2019 Medical Group,[facility] [place] [facility], OPID Hettinger Hypergamma Hypergamm Problem Active 2019-11-27 Memoria globulinem aglobuline 21:25:13 l ia raza Dariel (finding) (finding) Active Problem 11/27/2019 Medical Group,[facility], OPID Hettinger Hyperglyce Hyperglyc Problem Active 2019-11-27 Memoria raza emia 21:25:13 l (disorder) (disorder) He rmann Active Problem 11/27/2019 Medical Group, OPID Hettinger Lesion of Lesion of Problem Active 2019-11-27 Memoria liver liver 21:25:13 l (finding) (finding) Herm hilton Active Problem 11/27/2019 Medical Group,[facility], OPID Hettinger Menopause Menopause Problem Active 2019-11-27 Memoria present present 21:25:13 l (finding) (finding) Herm hilton Active Problem 11/27/2019 Medical Group,[facility], OPID Hettinger 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 Memor ia hyperlipid hyperlipid 21:25:13 l emia emia Dariel (disorder) (disorder) Active Problem 11/27/2019 Medical Group,[facility], OPID Hettinger 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 21:25:13 l lung lung Dariel (finding) (finding) Active Problem 11/27/2019 Medical Group,[facility], OPID Hettinger Neck pain Neck Problem Active 2019-11-27 Me moria (finding) pain 21:25:13 l (finding) Edwards Active Problem 11/27/2019 Medical Group,[facility], OPID Hettinger Osteoporos Osteoporo Problem Active 2019-11-27 Memoria is sis 21:25:13 l (disorder) (disorder) He rmann Active Problem 11/27/2019 Medical Group,[facility], OPID Hettinger Atrophic Atrophic Problem Active 2019-11-27 Memoria vaginitis vaginitis 21:25:13 l (disorder) (disorder) He rmann Active Problem 11/27/2019 Medical Group,[facility], OPID Hettinger Hypertensi Hypertens Problem Active 2019-11-27 Memoria ve ernst 21:25:13 l disorder, disorder, Herm hilton systemic systemic arterial arterial (disorder) (disorder) Active Problem 11/27/2019 Medical Group Osteopenia Osteopeni Problem Active 2017-06-18 Memoria (disorder) a 03:07:06 l (disorder) Berhane ryan Active Problem 06/18/2017 Medical Group, OPID Hettinger Body mass Body mass Problem Active 2016-07-24 Memoria index index 02:33:04 l index index Edwards 25-29 - 25-29 - overweight overweight (finding) (finding) Active Problem 07/24/2016 OPID Hettinger Right Right Problem Active 2016-07-10 Memor ia lower lower 03:43:11 l quadrant quadrant Berhane n pain pain (finding) (finding) Active Problem 07/10/2016 OPID Hettinger History of Past Illness Condition Condition Condition Status Onset Resolution Last Treating Co mments Source Name Details Category Date Date Treatment Clinician Date Other Other Problem 2019-01-29 2019-01-29 Memoria abnormal abnormal 2- 11:41:30 11:41:30 l and and 06:20: Dariel inconclusi inconclusi 36 ve ve findings findings on on diagnostic diagnostic imaging of imaging of breast breast 07/17/2018 01/29/2019 OPID Hettinger Asymptomat Asymptoma Problem 2019-01-26 2019-01-26 Memoria ic tic 07-08 12:07:51 12:07:51 l menopausal menopausal 16:48: He rmann state state 00 07/08/2018 01/26/2019 Medical Group Postmenopa Postmenop Problem 2019-01-26 2019-01-26 Memoria usal ausal 07-08 12:07:51 12:07:51 l atrophic atrophic 16:48: Berhane ryan vaginitis vaginitis 00 07/08/2018 01/26/2019 Medical Group Leukoplaki Leukoplak Problem 2019-01-26 2019-01-26 Memoria a of vulva ia of 07-08 12:07:51 12:07:51 l vulva 16:48: Dariel 07/08/201801/26/2019 Medical Group Age-relate Age-relat Problem 2019-01-26 2019-01-26 Memoria d ed 07-08 12:07:51 12:07:51 l osteoporos osteoporos 16:48: He rmann is without is without 00 current current pathologic pathologic al al fracture fracture 07/08/2018 01/26/2019 Medical Group Allergies, Adverse Reactions, Alerts Allergy Allergy Status Severity Reaction(s) Onset Inactive Treating Comm ents Source Name Type Date Date Clinician PENICILL Allergy Active Hives [facility] Penicill Propensi Active Hives As a [facility] adverse [facility]: Medical reaction 00 Center s NO KNOWN Drug Active Univers ALLERGIE Class ity of S [facility] penicill penicill Active Memori a ins<sup> ins<sup> [...] enter Exposure to 2021-10-25 2021-11-04 Not sure [facility] SARS-CoV-2 00:00:00 11:31:00 [facility] (event) [place] Alcohol intake 2020-01-14 2020-01-[address] [facility] 00:00:00 00:00:00 non-drinker of Medical Ce nter alcohol (finding) Tobacco use and 2020-01-07 2020-01-07 Smokeless tobacco [facility] exposure 00:[facility]00 00:00:00 non-user [facility] Center History SDOH 2020-01-07 2020-01-[address] [facility] Alcohol Frequency 00:00:00 00:00:[address] [facility] Social History 2018-08-01 2018-08-01 [facility] 14:27:23 14:27:23 Sex Assigned At [address] [address] [facility] 00:00:00 00:[facility]:00 [facility] Center Smoking Status Start Date Stop Date Source Unknown if ever smoked [facility] Never smoked tobacco [facility] Center Medications Ordered Filled Start Stop Current [...] 21 daily. Center calcium (1,500 mg) Tab levocetiriz 2020-[address] [facility] (XYZAL[facility] 7[facility]06 [facility] 5 MG tablet 00:00: Medica l 00 Center levocetiriz 2020-[address] [facility] (XYZAL) 7[facility]06 [facility] 5 MG tablet 00:00: Medica l 00 [place] levocetiriz 2020-[address] [facility] (XYZAL) 7-06 [facility] 5 MG tablet 00:00: Medica l 00 [place] bimatoprost 2020-0 Yes INSTILL 1 C HI [...] [facility] (KENALOG) 00:00: Medical 0.1 % 00 [place] topical cream triamcinolo 2020-[address] [facility] 6[facility]09 [facility] (KENALOG) 00:00: Medical 0.1 % 00 [place] topical cream amLODIPine 2020-0 Yes TAKE 1 [...] tablet 00:00: MOUTH Medical 00 EVERY DAY [place] Calcium 600 2020-0 Yes 1 tab, PO, [...] tab, H ermann 30 Refill(s) 4, Pharmacy: [facility][id number] atorvastati 2020-0 Yes = 1 tab, [...] / 00 Refill(s), Guaifenesin Pharmacy: 10 MG/ML [id number] Solution Dextrometho 2020-0 Yes 10 mL, PO, Memoria rphan 2-11 Q4H, # 120 l Hydrobromid 22:52: mL, 0 Jodi nn e 1 MG/ML / 00 Refill(s), Guaifenesin Pharmacy: 10 MG/ML [id number] Solution Dextrometho 2020-0 Yes 10 mL, PO, Memoria rphan 2-11 Q4H, # 120 l Hydrobromid 22:52: mL, 0 Jodi nn e 1 MG/ML / 00 Refill(s), Guaifenesin Pharmacy: 10 MG/ML [id number] Solution Dextrometho 2020-0 Yes 10 mL, PO, Memoria rphan 2-11 Q4H, # 120 l Hydrobromid 22:52: mL, 0 Jodi nn e 1 MG/ML / 00 Refill(s), Guaifenesin Pharmacy: 10 MG/ML [id number] Solution Dextrometho 2020-0 Yes 10 mL, PO, Memoria rphan 2-11 Q4H, # 120 l Hydrobromid 22:52: mL, 0 Jodi nn e 1 MG/ML / 00 Refill(s), Guaifenesin Pharmacy: 10 MG/ML [facility] #[id number] Solution azithromyci 2020-0 Yes 500 mg = 1 Memoria n 500 mg 1-07 tab, PO, l oral tablet 20:36: Daily, X 5 Dariel 00 day, # 5 tab, 0 Refill(s), Pharmacy: [facility] #[id number] azithromyci 2020-0 Yes 500 mg = 1 Memoria n 500 mg 1-07 tab, PO, l oral tablet 20:36: Daily, X 5 Edwards 00 day, # 5 tab, 0 Refill(s), Pharmacy: [facility] #[id number] azithromyci 2020-0 Yes 500 mg = 1 Memoria n 500 mg 1-07 tab, PO, l oral tablet 20:36: Daily, X 5 Dariel 00 day, # 5 tab, 0 Refill(s), Pharmacy: [facility] #[id number] azithromyci 2020-0 Yes 500 mg = 1 Memoria n 500 mg 1-07 tab, PO, l oral tablet 20:36: Daily, X 5 Dariel 00 day, # 5 tab, 0 Refill(s), Pharmacy: [facility] #[id number] azithromyci 2020-0 Yes 500 mg = 1 Memoria n 500 mg 1-07 tab, PO, l oral tablet 20:36: Daily, X 5 Edwards 00 day, # 5 tab, 0 Refill(s), Pharmacy: [facility] #[id number] omeprazole 2018-06 Yes 20 mg = [...] Capsule 30 cap, 0 [Tylenol] Refill(s), Pharmacy: [facility] #[id number] Acetaminoph 2018-06 Yes 325 mg = 1 Memoria en 325 MG 0-17 cap, PO, l Oral 18:46: TID, # 21 Edwards Capsule 30 cap, 0 [Tylenol] Refill(s), Pharmacy: [facility] #[id number] Acetaminoph 2018-06 Yes 325 mg = 1 Memoria en 325 MG 0-17 cap, PO, l Oral 18:46: TID, # 21 Dariel Capsule 30 cap, 0 [Tylenol] Refill(s), Pharmacy: [facility] #[id number] Acetaminoph 2018-06 Yes 325 mg = 1 Memoria en 325 MG 0-17 cap, PO, l Oral 18:46: TID, # 21 Dariel Capsule 30 cap, 0 [Tylenol] Refill(s), Pharmacy: [facility] #[id number] Acetaminoph 2018-06 Yes 325 mg = 1 Memoria en 325 MG 0-17 cap, PO, l Oral 18:46: TID, # 21 Edwards Capsule 30 cap, 0 [Tylenol] Refill(s), Pharmacy: [facility] #[id number] azolivei 2018-06 Yes 500 mg = 1 Memoria n 500 mg 0-17 tab, PO, l oral tablet 18:46: Daily, X 5 Dariel 06 day, # 5 tab, 0 Refill(s), Pharmacy: [facility] #[id number] azYi Ji Electrical Applianceisidoroi 2018-06 Yes 500 mg = 1 Memoria n 500 mg 0-17 tab, PO, l oral tablet 18:46: Daily, X 5 Edwards 06 day, # 5 tab, 0 Refill(s), Pharmacy: [facility] #[id number] azdanyelyci 2018-06 Yes 500 mg = 1 Memoria n 500 mg 0-17 tab, PO, l oral tablet 18:46: Daily, X 5 Dariel 06 day, # 5 tab, 0 Refill(s), Pharmacy: [facility] #[id number] azYi Ji Electrical Applianceyci 2018-06 Yes 500 mg = 1 Memoria n 500 mg 0-17 tab, PO, l oral tablet 18:46: Daily, X 5 Edwards 06 day, # 5 tab, 0 Refill(s), [id number] azithInovance Financial Technologiesyci 2018-06 Yes 500 mg = 1 Memoria n 500 mg 0-17 tab, PO, l oral tablet 18:46: Daily, X 5 Edwards 06 day, # 5 tab, 0 Refill(s), Pharmacy: [facility] #[id number] Fluticasone 2018- Yes 1 spray, Me moria propionate 0-17 NASAL, l 0.05 18:45: BID, # 16 Edwards MG/ACTUAT 12 gm, 0 Metered Refill(s), Dose Nasal Pharmacy: [facility] [[facility]] #[id number] Fluticasone 2018- Yes 1 spray, Me moria propionate 0-17 NASAL, l 0.05 18:45: BID, # 16 Edwards MG/ACTUAT 12 gm, 0 Metered Refill(s), Dose Nasal Pharmacy: [facility] #[id number] Fluticasone 2018-06 Yes 1 spray, Me moria propionate 0-17 NASAL, l 0.05 18:45: BID, # 16 Dariel MG/ACTUAT 12 gm, 0 Metered Refill(s), Dose Nasal Pharmacy: [facility] [[facility] #[id number] Fluticasone 2018-06 Yes 1 spray, Me moria propionate 0-17 NASAL, l 0.05 18:45: BID, # 16 Edwards MG/ACTUAT 12 gm, 0 Metered Refill(s), Dose Nasal Pharmacy: [facility] [[facility] #[id number] Fluticasone 2018-06 Yes 1 spray, Me moria propionate 0-17 NASAL, l 0.05 18:45: BID, # 16 Edwards MG/ACTUAT 12 gm, 0 Metered Refill(s), Dose Nasal Pharmacy: [facility] [[facility] #[id number] Fluticasone 2018-06 No 1 spray, Me moria propionate 0-17 NASAL, l 0.05 18:38: BID, # 16 Dariel MG/ACTUAT 00 gm, 0 Metered Refill(s), Dose Nasal Pharmacy: [facility] #[id number] Acetaminoph 2018-06 No 325 mg = 1 Memoria en 325 MG 0-17 cap, PO, l Oral 18:38: TID, # 21 Dariel Capsule 00 cap, 0 [Tylenol] Refill(s), [facility]acy: [id number] azithromyci 2018-06 No 500 mg = 1 Memoria n 500 mg 0-17 tab, PO, l oral tablet 18:38: Daily, X 5 Dariel 00 day, # 5 tab, 0 Refill(s), [facility]acy: [id number] Fluticasone 2018-06 No 1 spray, Me moria propionate 0-17 NASAL, l 0.05 18:38: BID, # 16 Edwards MG/ACTUAT 00 gm, 0 Metered Refill(s), Dose Nasal Pharmacy: [facility] [[facility] #[id number] Acetaminoph 2018-06 No 325 mg = 1 Memoria en 325 MG 0-17 cap, PO, l Oral 18:38: TID, # 21 Dariel Capsule 00 cap, 0 [Tylenol] Refill(s), Pharmacy: [facility] #[id number] azithromyci 2018-06 No 500 mg = 1 Memoria n 500 mg 0-17 tab, PO, l oral tablet 18:38: Daily, X 5 Dariel 00 day, # 5 tab, 0 Refill(s), Pharmacy: [facility] #[id number] Fluticasone 2018-06 No 1 spray, Me moria propionate 0-17 NASAL, l 0.05 18:38: BID, # 16 Dariel MG/ACTUAT 00 gm, 0 Metered Refill(s), Dose Nasal Pharmacy: [facility] [[facility] #[id number] Acetaminoph 2018-06 No 325 mg = 1 Memoria en 325 MG 0-17 cap, PO, l Oral 18:38: TID, # 21 Edwards Capsule 00 cap, 0 [Tylenol] Refill(s), Pharmacy: [facility] #[id number] azithromyci 2018-06 No 500 mg = 1 Memoria n 500 mg 0-17 tab, PO, l oral tablet 18:38: Daily, X 5 Dariel 00 day, # 5 tab, 0 Refill(s), Pharmacy: [facility] #[id number] Fluticasone 2018-06 No 1 spray, Me moria propionate 0-17 NASAL, l 0.05 18:38: BID, # 16 Dariel MG/ACTUAT 00 gm, 0 Metered Refill(s), Dose Nasal Pharmacy: [facility] #[id number] Acetaminoph 2018-06 No 325 mg = 1 Memoria en 325 MG 0-17 cap, PO, l Oral 18:38: TID, # 21 Edwards Capsule 00 cap, 0 [Tylenol] Refill(s), Pharmacy: [facility] #[id number] azithromyci 2018-06 No 500 mg = 1 Memoria n 500 mg 0-17 tab, PO, l oral tablet 18:38: Daily, X 5 Edwards 00 day, # 5 tab, 0 Refill(s), Pharmacy: [facility][id number] Fluticasone 2018-06 No 1 spray, Me moria propionate 0-17 NASAL, l 0.05 18:38: BID, # 16 Dariel MG/ACTUAT 00 gm, 0 Metered Refill(s), Dose Nasal [id number] Acetaminoph 2018-06 No 325 mg = 1 Memoria en 325 MG 0-17 cap, PO, l Oral 18:38: TID, # 21 Edwards Capsule 00 cap, 0 [Tylenol] Refill(s), Pharmacy: [facility] #[id number] azithromyci 2018-06 No 500 mg = 1 Memoria n 500 mg 0-17 tab, PO, l oral tablet 18:38: Daily, X 5 Edwards 00 day, # 5 tab, 0 Refill(s), Pharmacy: [facility] #[id number] Levofloxaci 2018- Yes 500 mg = 1 Memoria n 500 MG 7-24 tab, PO, l Oral Tablet 13:38: Q24H, X 7 H ermann [Levaquin] 00 day, # 7 tab, 0 Refill(s), Pharmacy: [facility] #[id number] Levofloxaci Yes 500 mg = 1 Memoria n 500 MG 7-24 tab, PO, l Oral Tablet 13:38: Q24H, X 7 H ermann [Levaquin] 00 day, # 7 tab, 0 Refill(s), Pharmacy: [facility] #[id number] Levofloxaci Yes 500 mg = 1 Memoria n 500 MG 7-24 tab, PO, l Oral Tablet 13:38: Q24H, X 7 H ermann [Levaquin] 00 day, # 7 tab, 0 Refill(s), Pharmacy: [facility] #[id number] Levofloxaci 2018- Yes 500 mg = 1 Memoria n 500 MG 7-24 tab, PO, l Oral Tablet 13:38: Q24H, X 7 H ermann [Levaquin] 00 day, # 7 tab, 0 Refill(s), Pharmacy: [facility] #[id number] Levofloxaci 2018- Yes 500 mg = 1 Memoria n 500 MG 7-24 tab, PO, l Oral Tablet 13:38: Q24H, X 7 H ermann [Levaquin] 00 day, # 7 tab, 0 Refill(s), Pharmacy: [facility] #[id number] Levofloxaci No 500 mg = 1 Memoria n 500 MG 1-29 tab, PO, l Oral Tablet 14:52: Q24H, X 7 H ermann [Levaquin] 00 day, # 7 tab, 0 Refill(s), Pharmacy: [facility] #[id number] Levofloxaci No 500 mg = 1 Memoria n 500 MG 1-29 tab, PO, l Oral Tablet 14:52: Q24H, X 7 H ermann [Levaquin] 00 day, # 7 tab, 0 Refill(s), Pharmacy: [facility] #[id number] Levofloxaci No 500 mg = 1 Memoria n 500 MG 1-29 tab, PO, l Oral Tablet 14:52: Q24H, X 7 H ermann [Levaquin] 00 day, # 7 tab, 0 Refill(s), Pharmacy: [facility] #[id number] Levofloxaci No 500 mg = 1 Memoria n 500 MG 1-29 tab, PO, l Oral Tablet 14:52: Q24H, X 7 H ermann [Levaquin] 00 day, # 7 tab, 0 Refill(s), Pharmacy: [facility] #[id number] Levofloxaci No 500 mg = 1 Memoria n 500 MG 1-29 tab, PO, l Oral Tablet 14:52: Q24H, X 7 H ermann [Levaquin] 00 day, # 7 tab, 0 Refill(s), Pharmacy: [facility] #[id number] Levofloxaci 2017-06 No 500 mg = 1 Memoria n 500 MG 0-18 tab, PO, l Oral Tablet 18:59: Q24H, X 10 Dariel [Levaquin] 00 day, # 10 tab, 0 Refill(s), Pharmacy: [facility] #[id number] Levofloxaci 2017-06 No 500 mg = 1 Memoria n 500 MG 0-18 tab, PO, l Oral Tablet 18:59: Q24H, X 10 Edwards [Levaquin] 00 day, # 10 tab, 0 Refill(s), Pharmacy: [facility] #[id number] Levofloxaci 2017-06 No 500 mg = 1 Memoria n 500 MG 0-18 tab, PO, l Oral Tablet 18:59: Q24H, X 10 Dariel [Levaquin] 00 day, # 10 tab, 0 Refill(s), Pharmacy: [facility] #[id number] Levofloxaci 2017-06 No 500 mg = 1 Memoria n 500 MG 0-18 tab, PO, l Oral Tablet 18:59: Q24H, X 10 Edwards [Levaquin] 00 day, # 10 tab, 0 Refill(s), Pharmacy: [facility] #[id number] Levofloxaci 2017-06 No 500 mg = 1 Memoria n 500 MG 0-18 tab, PO, l Oral Tablet 18:59: Q24H, X 10 Edwards [Levaquin] 00 day, # 10 tab, 0 Refill(s), Pharmacy: [facility] #[id number] Codeine No See Memoria Phosphate 2 [...] Instructio l MG/ML / 21:35: ns, PRN Edwards Guaifenesin 53 cough, 20 MG/ML 5-10 mL [...] Instructio l MG/ML / 21:35: ns, PRN Edwards Guaifenesin 53 cough, 20 MG/ML 5-10 mL PO Oral Q6H prn Solution cough, # [Cheratussi 240 mL, 1 n] Refill(s) valacyclovi 2017-0 No 1 gm = 1 Me moria r 1000 MG 9-25 tab, PO, l Oral Tablet 21:35: ONCE, # 1 H ermann [Valtrex] 00 tab, 0 Refill(s), Pharmacy: [facility][id number] valacyclovi 0 No 1 gm = 1 Me moria r 1000 MG 9-25 tab, PO, l Oral Tablet 21:35: ONCE, # 1 H ermann [Valtrex] 00 tab, 0 Refill(s), Pharmacy: [facility][id number] valacyclovi No 1 gm = 1 Me moria r 1000 MG 9-25 tab, PO, l Oral Tablet 21:35: ONCE, # 1 H ermann [Valtrex] 00 tab, 0 Refill(s), Pharmacy: [facility][id number] valacyclovi No 1 gm = 1 Me moria r 1000 MG 9-25 tab, PO, l Oral Tablet 21:35: ONCE, # 1 H ermann [Valtrex] 00 tab, 0 Refill(s), Pharmacy: [facility][id number] valacyclovi 0 No 1 gm = 1 Me moria r 1000 MG 9-25 tab, PO, l Oral Tablet 21:35: ONCE, # 1 H ermann [Valtrex] 00 tab, 0 Refill(s), Pharmacy: [facility][id number] Hydrocortis No 1 appl, Mem oria one 25 9-05 TOP, BID, l MG/ML 20:06: X 14 day, Dariel Topical 00 # 30 gm, 0 Cream Refill(s), Pharmacy: [facility][id number] Hydrocortis 0 No 1 appl, Mem oria one 25 9-05 TOP, BID, l MG/ML 20:06: X 14 day, Dariel Topical 00 # 30 gm, 0 Cream Refill(s), Pharmacy: [facility] #[id number] Hydrocortis 0 No 1 appl, Mem oria one 25 9-05 TOP, BID, l MG/ML 20:06: X 14 day, Dariel Topical 00 # 30 gm, 0 Cream Refill(s), [id number] Hydrocortis No 1 appl, Mem oria one 25 9-05 TOP, BID, l MG/ML 20:06: X 14 day, Dariel Topical 00 # 30 gm, 0 Cream Refill(s), [id number] Hydrocortis No 1 appl, Mem oria one 25 9-05 TOP, BID, l MG/ML 20:06: X 14 day, Edwards Topical 00 # 30 gm, 0 Cream Refill(s), [id number] baclofen 10 Yes See Memori a mg oral 4-16 Instructio l tablet 17:59: ns, # 90 Dariel 43 tab, TAKE 1 TABLET BY MOUTH 3 TIMES A DAY NEEDED FOR SPASMS, [id number] baclofen 10 Yes See Memori a mg oral 4-16 Instructio l tablet 17:59: ns, # 90 Edwards 43 tab, TAKE 1 TABLET BY MOUTH 3 TIMES A DAY NEEDED FOR SPASMS, [id number] baclofen 10 Yes See Memori a mg oral 4-16 Instructio l tablet 17:59: ns, # 90 Dariel 43 tab, TAKE 1 TABLET BY MOUTH 3 TIMES A DAY NEEDED FOR SPASMS, [id number] baclofen 10 Yes See Memori a mg oral 4-16 Instructio l tablet 17:59: ns, # 90 Dariel 43 tab, TAKE 1 TABLET BY MOUTH 3 TIMES A DAY NEEDED FOR SPASMS, [id number] baclofen 10 Yes See Memori a mg oral 4-16 Instructio l tablet 17:59: ns, # 90 Dariel 43 tab, TAKE 1 TABLET BY MOUTH 3 TIMES A DAY NEEDED FOR SPASMS, [id number] baclofen 10 No See Memori a mg oral 3-13 Instructio l tablet 19:36: ns, # 90 Dariel 08 tab, TAKE 1 TABLET BY MOUTH 3 TIMES A DAY NEEDED FOR SPASMS, [id number] baclofen 10 No See Memori a mg oral 3-13 Instructio l tablet 19:36: ns, # 90 Edwards 08 tab, TAKE 1 TABLET BY MOUTH 3 TIMES A DAY NEEDED FOR SPASMS, Pharmacy: [facility] #[id number] baclofen 10 No See Memori a mg oral 3-13 Instructio l tablet 19:36: ns, # 90 Dariel 08 tab, TAKE 1 TABLET BY MOUTH 3 TIMES A DAY NEEDED FOR SPASMS, Pharmacy: [facility] #[id number] baclofen 10 No See Memori a mg oral 3-13 Instructio l tablet 19:36: ns, # 90 Dariel 08 tab, TAKE 1 TABLET BY MOUTH 3 TIMES A DAY NEEDED FOR SPASMS, Pharmacy: [facility] #[id number] baclofen 10 No See Memori a mg oral 3-13 Instructio l tablet 19:36: ns, # 90 Edwards 08 tab, TAKE 1 TABLET BY MOUTH 3 TIMES A DAY NEEDED FOR SPASMS, Pharmacy: [facility] #[id number] tramadol 0 No 50 mg = 1 Vasile roberto hydrochlori 2-23 tab, PO, l de 50 MG 20:52: BID, X 10 Herm hilton Oral Tablet 00 day, # 10 tab, 0 Refill(s) tramadol No 50 mg = 1 Vasile roberto hydrochlori 2-23 tab, PO, l de 50 MG 20:52: BID, X 10 Herm hilton Oral Tablet day, # 10 tab, 0 Refill(s) tramadol 0 No 50 mg = 1 Vasile roberto hydrochlori 2-23 tab, PO, l de 50 MG 20:52: BID, X 10 Herm hilton Oral Tablet day, # 10 tab, 0 Refill(s) tramadol 0 No 50 mg = 1 Vasile roberto hydrochlori 2-23 tab, PO, l de 50 MG 20:52: BID, X 10 Herm hilton Oral Tablet 00 day, # 10 tab, 0 Refill(s) tramadol 0 No 50 mg = 1 Vasile roberto hydrochlori 2-23 tab, PO, l de 50 MG 20:52: BID, X 10 Herm hilton Oral Tablet day, # 10 tab, 0 Refill(s) baclofen 10 No 10 mg = 1 M emoria mg oral 2-14 tab, PO, l tablet 20:01: TID, PRN Edwards 00 Spasms, # 90 tab, 0 Refill(s), Pharmacy: [facility] #[id number] baclofen No 10 mg = 1 M emoria mg oral 2-14 tab, PO, l tablet 20:01: TID, PRN Edwards 00 Spasms, # 90 tab, 0 Refill(s), Pharmacy: [facility] #[id number] baclofen No 10 mg = 1 M emoria mg oral 2-14 tab, PO, l tablet 20:01: TID, PRN Edwards 00 Spasms, # 90 tab, 0 Refill(s), Pharmacy: [facility] #[id number] baclofen No 10 mg = 1 M emoria mg oral 2-14 tab, PO, l tablet 20:01: TID, PRN Edwards 00 Spasms, # 90 tab, 0 Refill(s), Pharmacy: [facility] #[id number] baclofen No 10 mg = 1 M emoria mg oral 2-14 tab, PO, l tablet 20:01: TID, PRN Dariel 00 Spasms, # 90 tab, 0 Refill(s), Pharmacy: [facility] #[id number] Triamcinolo Yes See Memori a ne 1-18 Instructio l Acetonide 1 15:48: ns, apply H ermann MG/ML 00 small Topical amount to Cream affected area twice/day until symptoms resolved., # 60 gm, 1 Refill(s), Pharmacy: [facility] #[id number] Triamcinolo 2017- Yes See Memori a ne 1-18 Instructio l Acetonide 1 15:48: ns, apply H ermann MG/ML 00 small Topical amount to Cream affected area twice/day until symptoms resolved., # 60 gm, 1 Refill(s), Pharmacy: [facility] #[id number] Triamcinolo 2018- Yes See Memori a ne 1-18 Instructio l Acetonide 1 15:48: ns, apply H ermann MG/ML 00 small Topical amount to Cream affected area twice/day until symptoms resolved., # 60 gm, 1 Refill(s), Pharmacy: [facility] #[id number] Triamcinolo 2018- Yes See Memori a ne 1-18 Instructio l Acetonide 1 15:48: ns, apply H ermann MG/ML 00 small Topical amount to Cream affected area twice/day until symptoms resolved., # 60 gm, 1 Refill(s), Pharmacy: [facility][id number] Triamcinolo 2017- Yes John britton 06-28 Instructio l Acetonide 1 15:48: ns, apply H ermann MG/ML 00 small Topical amount to Cream affected area twice/day until symptoms resolved., # 60 gm, 1 Refill(s), Pharmacy: [facility] #[id number] atorvastati No 20 mg = 1 M emoria n 20 mg 1-11 tab, PO, l oral tablet 19:41: Daily, # He rmann 00 90 tab, 0 Refill(s), Pharmacy: [facility] #[id number] atorvastati No 20 mg = 1 M emoria n 20 mg 1-11 tab, PO, l oral tablet 19:41: Daily, # He rmann 00 90 tab, 0 Refill(s), Pharmacy: [facility] #[id number] atorvastati No 20 mg = 1 M emoria n 20 mg 1-11 tab, PO, l oral tablet 19:41: Daily, # He rmann 00 90 tab, 0 Refill(s), Pharmacy: [facility] #[id number] atorvastati No 20 mg = 1 M emoria n 20 mg 1-11 tab, PO, l oral tablet 19:41: Daily, # He rmann 00 90 tab, 0 Refill(s), Pharmacy: [facility] #[id number] atorvastati No 20 mg = 1 M emoria n 20 mg 1-11 tab, PO, l oral tablet 19:41: Daily, # He rmann 00 90 tab, 0 Refill(s), Pharmacy: [facility] #[id number] atorvastati Yes 20 mg = 1 M emoria n 20 mg 1-11 tab, PO, l oral tablet 19:40: Daily, # He rmann 15 90 tab, 5 Refill(s), Pharmacy: [facility] #[id number] atorvastati Yes 20 mg = 1 M emoria n 20 mg 1-11 tab, PO, l oral tablet 19:40: Daily, # He rmann 15 90 tab, 5 Refill(s), Pharmacy: [facility] #[id number] atorvastati 2018-0 Yes 20 mg = 1 M emoria n 20 mg 1-11 tab, PO, l oral tablet 19:40: Daily, # He rmann 15 90 tab, 5 Refill(s), Pharmacy: [facility] #[id number] atorvastati 2018-0 Yes 20 mg = 1 M emoria n 20 mg 1-11 tab, PO, l oral tablet 19:40: Daily, # He rmann 15 90 tab, 5 Refill(s), Pharmacy: [facility] #[id number] atorvastati 2018-0 Yes 20 mg = 1 M emoria n 20 mg 1-11 tab, PO, l oral tablet 19:40: Daily, # He rmann 15 90 tab, 5 Refill(s), Pharmacy: [facility] #[id number] amLODIPine 2018-0 Yes See Memoria 5 mg oral 1-04 Instructio l tablet 18:47: ns, TAKE 1 Jodi nn 05 TABLET BY MOUTH DAILY, # 90 tab, 1 Refill(s), Pharmacy: [facility] #[id number] amLODIPine 2018-0 Yes See Memoria 5 mg oral 1-04 Instructio l tablet 18:47: ns, TAKE 1 Jodi nn 05 TABLET BY MOUTH DAILY, # 90 tab, 1 Refill(s), Pharmacy: [facility] #[id number] amLODIPine 2018-0 Yes See Memoria 5 mg oral 1-04 Instructio l tablet 18:47: ns, TAKE 1 Jodi nn 05 TABLET BY MOUTH DAILY, # 90 tab, 1 Refill(s), Pharmacy: [facility] #[id number] amLODIPine 2018-0 Yes See Memoria 5 mg oral 1-04 Instructio l tablet 18:47: ns, TAKE 1 Jodi nn 05 TABLET BY MOUTH DAILY, # 90 tab, 1 Refill(s), Pharmacy: [facility] #[id number] amLODIPine 2018-0 Yes See Memoria 5 mg oral 1-04 Instructio l tablet 18:47: ns, TAKE 1 Jodi nn 05 TABLET BY MOUTH DAILY, # 90 tab, 1 Refill(s), Pharmacy: [facility] #[id number] levofloxaci 2018-0 Yes 500 mg = 1 Memoria n 500 mg 1-04 tab, PO, l oral tablet 14:44: Daily, X He rmann 00 10 day, # 10 tab, 0 Refill(s), [id number] [place] the Zithromax order levofloxaci 2018-0 Yes 500 mg = 1 Memoria n 500 mg 1-04 tab, PO, l oral tablet 14:44: Daily, X He rmann 00 10 day, # 10 tab, 0 Refill(s), [id number], [place] the Zithromax order levofloxaci 2018-0 Yes 500 mg = 1 Memoria n 500 mg 1-04 tab, PO, l oral tablet 14:44: Daily, X He rmann 00 10 day, # 10 tab, 0 Refill(s), [id number], [place] the Zithromax order levofloxaci 2018-0 Yes 500 mg = 1 Memoria n 500 mg 1-04 tab, PO, l oral tablet 14:44: Daily, X He rmann 00 10 day, # 10 tab, 0 Refill(s), [id number], [place] the Zithromax order levofloxaci 2018-0 Yes 500 mg = 1 Memoria n 500 mg 1-04 tab, PO, l oral tablet 14:44: Daily, X He rmann 00 10 day, # 10 tab, 0 Refill(s), [id number] [place] the Zithromax order Codeine 2018-0 Yes See Memoria Phosphate 2 1-04 Instructio l MG/ML / 14:40: ns, PRN Dariel Guaifenesin 00 cough, 20 MG/ML 5-10 mL PO Oral Q6H prn Solution cough, # [Cheratussi 240 mL, 1 n] Refill(s) Codeine 2018-0 Yes See Memoria Phosphate 2 1-04 Instructio l MG/ML / 14:40: ns, PRN Edwards Guaifenesin 00 cough, 20 MG/ML 5-10 mL [...] Instructio l MG/ML / 14:40: ns, PRN Edwards Guaifenesin 00 cough, 20 MG/ML 5-10 mL PO Oral Q6H prn Solution cough, # [Cheratussi 240 mL, 1 n] Refill(s) Codeine 2017-0 Yes See Memoria Phosphate 2 1-04 Instructio l MG/ML / 14:40: ns, PRN Edwards Guaifenesin 00 cough, 20 MG/ML 5-10 mL [...] day, # 6 tab, 0 Refill(s), Pharmacy: [facility] #[id number] {6 No See Memoria (Azithromyc 1-04 Instructio l in 250 MG 14:39: ns, Take 2 He rmann Oral Tablet 00 tablets by [Zithromax] mouth the ) } Pack first day [Z-PAKS] then 1 tablet by mouth days 2-5., X 5 day, # 6 tab, 0 Refill(s), Pharmacy: [facility] #[id number] {6 No See Memoria (Azithromyc 1-04 Instructio l in 250 MG 14:39: ns, Take 2 He rmann Oral Tablet 00 tablets by [Zithromax] mouth the ) } Pack first day [Z-PAKS] then 1 tablet by mouth days 2-5., X 5 day, # 6 tab, 0 Refill(s), Pharmacy: [facility] #[id number] {6 No See Memoria (Azithromyc 1-04 Instructio l in 250 MG 14:39: ns, Take 2 He rmann Oral Tablet 00 tablets by [Zithromax] mouth the ) } Pack first day [Z-PAKS] then 1 tablet by mouth days 2-5., X 5 day, # 6 tab, 0 Refill(s), Pharmacy: [facility] #[id number] { No See Memoria (Azithromyc 1-04 Instructio l in 250 MG 14:39: ns, Take 2 He rmann Oral Tablet 00 tablets by [Zithromax] mouth the ) } Pack first day [Z-PAKS] then 1 tablet by mouth days 2-5., X 5 day, # 6 tab, 0 Refill(s), Pharmacy: [facility] #[id number] Immunizations Ordered Filled Immunization Date Status Comments [facility] e Immunization Name Name SARS-COV-2 COVID-19 2021-03-29 Completed [facility] of PFIZER VACCINE 00:00:00 [facility] SARS-COV-2 COVID-19 2021-03-29 Completed [facility]ive rsity of PFIZER VACCINE 00:00:00 [facility] SARS-COV-2 COVID-19 2021-03-29 Completed [facility]ive rs[facility] of PFIZER VACCINE 00:00:00 [facility] SARS-COV-2 COVID-19 2020-08-23 Completed [facility]ive rs[facility] of PFIZER VACCINE 00:00:00 [facility] SARS-COV-2 COVID-19 2020-08-23 Completed [facility] rs[facility] of PFIZER VACCINE 00:00:00 [facility] SARS-COV-2 COVID-19 2020-08-23 Completed [facility]ive rs[facility] of PFIZER VACCINE 00:00:00 [facility] SARS-COV-2 COVID-19 2020-08-23 Completed [facility] of PFIZER VACCINE 00:00:00 [facility] SARS-COV-2 COVID-19 2020-08-23 Completed [facility] rs[facility] of PFIZER VACCINE 00:00:00 [facility] SARS-COV-2 COVID-19 2020-08-23 Completed [facility]ive rs[facility] of PFIZER VACCINE 00:00:00 [facility] SARS-COV-2 COVID-19 2020-08-02 Completed [facility]ive rs[facility] of PFIZER VACCINE 00:00:00 [facility] SARS-COV-2 COVID-19 2020-08-02 Completed [facility]ive rs[facility] of PFIZER VACCINE 00:00:00 [facility] SARS-COV-2 COVID-19 2020-08-02 Completed [facility]ive rs[facility] of PFIZER VACCINE 00:00:00 [facility] SARS-COV-2 COVID-19 2020-08-02 Completed [facility]ive rs[facility] of PFIZER VACCINE 00:00:00 [facility] SARS-COV-2 COVID-19 2020-08-02 Completed [facility]ive rs[facility] of PFIZER VACCINE 00:00:00 [facility] SARS-COV-2 COVID-19 2020-08-02 Completed [facility]ive rs[facility] of PFIZER VACCINE 00:00:00 [facility] influenza virus 2019-02-27 Completed [facility] Dariel vaccine, 15:54:00 inactivated influenza virus 2019-02-27 Completed [facility] Dariel vaccine, 15:54:00 inactivated influenza virus 2019-02-27 Completed [facility] Dariel vaccine, 15:54:00 inactivated influenza virus 2019-02-27 Completed [facility] Edwards vaccine, 15:54:00 inactivated influenza virus 2019-02-27 Completed [facility] vaccine, 15:54:00 inactivated pneumococcal 2018-03-05 Completed [facility] [...] 21:01:00 inactivated influenza virus 2018-03-05 Completed [facility] vaccine, 21:01:00 inactivated influenza virus 2018-03-05 Completed [facility] vaccine, 21:01:00 inactivated influenza virus 2017-04-27 Completed [facility] Dariel vaccine, 16:16:00 inactivated influenza virus 2017-04-27 Completed [facility] Dariel vaccine, 16:16:00 inactivated influenza virus 2017-04-27 Completed [facility] Dariel vaccine, 16:16:00 inactivated influenza virus 2017-04-27 Completed [facility] vaccine, 16:16:00 inactivated influenza virus 2017-04-27 Completed [facility] vaccine, 16:16:00 inactivated influenza virus 2016-02-07 Completed [facility] vaccine, 18:11:00 inactivated influenza virus 2016-02-07 Completed [facility] Dariel vaccine, 18:11:00 inactivated influenza virus 2016-02-07 Completed [facility] vaccine, 18:11:00 inactivated influenza virus 2016-02-07 Completed [facility] Dariel vaccine, 18:11:00 inactivated influenza virus 2016-02-07 Completed [facility] vaccine, 18:11:00 inactivated influenza virus 2015-04-21 Completed [facility] Dariel vaccine, 22:30:00 inactivated influenza virus 2015-04-21 Completed [facility] vaccine, 22:30:00 inactivated influenza virus 2015-04-21 Completed [facility] Dariel vaccine, 22:30:00 inactivated influenza virus 2015-04-21 Completed [facility] Dariel vaccine, 22:30:00 inactivated influenza virus 2015-04-21 Completed [facility] Dariel vaccine, 22:30:00 inactivated diphtheria/pertussi 2014-04-23 Completed Memor iagladys Vieira s, acel/tetanus 06:00:00 adult<sup>3</sup> influenza virus 2014-04-23 Completed [facility] Dariel vaccine, 06:00:00 inactivated<sup>1</ sup> diphtheria/pertussi 2014-04-23 Completed [facility] naomie Vieira s, acel/tetanus 06:00:00 adult<sup>1</sup> influenza virus 2014-04-23 Completed [facility] Dariel vaccine, 06:00:00 inactivated<sup>3</ sup> influenza virus 2014-04-23 Completed [facility] Dariel vaccine, 06:00:00 inactivated<sup>1</ sup> diphtheria/pertussi 2014-04-23 Completed [facility]or iagladys Vieira s, acel/tetanus 06:00:00 adult<sup>3</sup> diphtheria/pertussi 2014-04-23 Completed Memor ial Dariel s, acel/tetanus 06:00:00 adult<sup>1</sup> influenza virus 2014-04-23 Completed [facility] Edwards vaccine, 06:00:00 inactivated<sup>3</ sup> diphtheria/pertussi 2014-04-23 Completed [...] 06:00:00 adult<sup>3</sup> influenza virus 2014-04-23 Completed [facility] vaccine, 06:00:00 inactivated<sup>1</ sup> diphtheria/pertussi 2014-04-23 Completed Memor ial Edwards s, acel/tetanus 06:00:00 adult<sup>1</sup> influenza virus 2014-04-23 Completed [facility] vaccine, 06:00:00 inactivated<sup>3</ sup> Hx influenza 2013-04-24 [...] inactivated<sup>4</ sup> influenza virus 2013-04-24 Completed [facility] vaccine, 06:00:00 inactivated<sup>2</ sup> influenza virus 2013-04-24 Completed [facility] Dariel vaccine, 06:00:00 inactivated<sup>4</ sup> influenza virus 2013-04-24 Completed [facility] vaccine, 06:00:00 inactivated<sup>2</ sup> influenza virus 2013-04-24 Completed [facility] Dariel vaccine, 06:00:00 inactivated<sup>4</ sup> influenza virus 2013-04-24 Completed [facility] vaccine, 06:00:00 inactivated<sup>2</ sup> influenza virus 2013-04-24 Completed [facility] Dariel vaccine, 06:00:00 inactivated<sup>4</ sup> influenza virus 2013-04-24 Completed [facility] vaccine, 06:00:00 inactivated<sup>2</ sup> influenza virus 2013-04-24 Completed [facility] vaccine, 06:00:00 inactivated<sup>4</ sup> zoster vaccine 2012-09-18 [...] kg Height 2019-10-01 15:14:00 160.02 cm [facility] Weight 2019-10-01 15:14:00 [facility] BMI Calculated 2019-10-01 15:14:00 Memori al Dariel Systolic (mm Hg) 2019-10-01 15:14:00 Vasile rial Edwards Diastolic (mm Hg) 2019-10-01 15:14:00 Mem orial Edwards Heart Rate 2019-10-01 15:14:00 [facility] Respitory Rate 2019-10-01 15:14:00 Memori al Dariel Temperature Oral (F) 2019-10-01 15:14:00 97.8 F [facility] Systolic (mm Hg) 2019-08-14 15:17:00 Vasile rial Edwards Diastolic (mm Hg) 2019-08-14 15:17:00 Mem orial Dariel Heart Rate 2019-08-14 15:17:00 [facility] Weight 2019-08-14 15:17:00 [facility] Height 2019-07-22 22:18:00 160.02 cm [facility] Weight 2019-07-22 22:18:00 [facility] BMI Calculated 2019-07-22 22:18:00 Memori al Dariel Systolic (mm Hg) 2019-07-22 22:18:00 Vasile rial Edwards Diastolic (mm Hg) 2019-07-22 22:18:00 Mem orial Dariel Heart Rate 2019-07-22 22:18:00 [facility] Dariel Temperature Oral (F) 2019-07-22 22:18:00 97.6 F [facility] Dariel Systolic (mm Hg) 2019-06-17 19:58:00 Vasile rial Edwards Diastolic (mm Hg) 2019-06-17 19:58:00 Mem orial Edwards Heart Rate 2019-06-17 19:58:00 [facility] Respitory Rate 2019-06-17 19:58:00 Memori al Dariel Height 2019-06-17 19:58:00 165.1 cm [facility] Weight 2019-06-17 19:58:00 [facility] Dariel BMI Calculated 2019-06-17 19:58:00 Memori al Edwards Height 2019-05-16 16:27:00 160.02 cm [facility] Weight 2019-05-16 16:27:00 [facility] Dariel BMI Calculated 2019-05-16 16:27:00 Memori al Dariel Systolic (mm Hg) 2019-05-16 16:27:00 Vasile rial Dariel Diastolic (mm Hg) 2019-05-16 16:27:00 Mem orial Edwards Heart Rate 2019-05-16 16:27:00 [facility] Dariel Temperature Oral (F) 2019-05-16 16:27:00 97.9 F [facility] Dariel Height 2019-04-02 14:23:00 160.02 cm [facility] Dariel Systolic (mm Hg) 2019-04-02 14:23:00 Vasile rial Dariel Diastolic (mm Hg) 2019-04-02 14:23:00 Mem orial Edwards Heart Rate 2019-04-02 14:23:00 [facility] Respitory Rate 2019-04-02 14:23:00 Memori al Edwards Temperature Oral (F) 2019-04-02 14:23:00 98.1 F [facility] Weight 2019-04-02 14:23:00 [facility] BMI Calculated 2019-04-02 14:23:00 Memori al Edwards Systolic (mm Hg) 2019-03-27 18:17:00 Vasile rial Dariel Diastolic (mm Hg) 2019-03-27 18:17:00 Mem orial Dariel Heart Rate 2019-03-27 18:17:00 [facility] Dariel Respitory Rate 2019-03-27 18:17:00 Memori al Dariel Temperature Oral (F) 2019-03-27 18:17:00 98.3 F [facility] Height 2019-03-27 18:17:00 165.1 cm [facility] Weight 2019-03-27 18:17:00 [facility] BMI Calculated 2019-03-27 18:17:00 Memori al Dariel Systolic (mm Hg) 2019-02-27 14:53:00 Vasile rial Dariel Diastolic (mm Hg) 2019-02-27 14:53:00 Mem orial Edwards Heart Rate 2019-02-27 14:53:00 [facility] Dariel Weight 2019-02-27 14:53:00 [facility] Dariel Systolic (mm Hg) 2019-01-01 13:09:00 Vasile rial Dariel Diastolic (mm Hg) 2019-01-01 13:09:00 Mem orial Edwards Temperature Oral (F) 2019-01-01 13:09:00 98.0 F [facility] Heart Rate 2019-01-01 13:09:00 [facility] Dariel Weight 2019-01-01 13:09:00 [facility] BMI Calculated 2018-11-15 14:02:00 Memori al Dariel Weight 2018-11-15 14:02:00 [facility] Systolic (mm Hg) 2018-11-15 14:02:00 Vasile rial Edwards Diastolic (mm Hg) 2018-11-15 14:02:00 Mem orial Edwards Temperature Oral (F) 2018-11-15 14:02:00 97.6 F [facility] Heart Rate 2018-11-15 14:02:00 [facility] Dariel Height 2018-11-15 14:02:00 160.02 cm [facility] BMI Calculated 2018-09-23 15:26:00 Memori al Dariel Weight 2018-09-23 15:26:00 [facility] Height 2018-09-23 15:26:00 160.02 cm [facility] Temperature Oral (F) 2018-09-23 15:26:00 97.5 F [facility] Heart Rate 2018-09-23 15:26:00 [facility] Dariel Respitory Rate 2018-09-23 15:26:00 Memori al Dariel Systolic (mm Hg) 2018-09-23 15:26:00 Vasile rial Edwards Diastolic (mm Hg) 2018-09-23 15:26:00 Mem orial Edwards Weight 2018-09-10 21:14:00 [facility] Temperature Oral (F) 2018-09-10 21:14:00 97.6 F [facility] Dariel Respitory Rate 2018-09-10 21:14:00 Memori al Edwards Heart Rate 2018-09-10 21:14:00 [facility] Dariel Systolic (mm Hg) 2018-09-10 21:14:00 Vasile rial Edwards Diastolic (mm Hg) 2018-09-10 21:14:00 Mem orial Edwards Height 2018-08-01 14:26:00 160.02 cm [facility] Weight 2018-08-01 14:26:00 [facility] BMI Calculated 2018-08-01 14:26:00 Memori al Dariel Respitory Rate 2018-08-01 14:26:00 Memori al Dariel Heart Rate 2018-08-01 14:26:00 [facility] Systolic (mm Hg) 2018-08-01 14:26:00 Vasile rial Dariel Diastolic (mm Hg) 2018-08-01 14:26:00 Mem orial Edwards Systolic (mm Hg) 2018-07-09 14:06:00 Vasile rial Dariel Diastolic (mm Hg) 2018-07-09 14:06:00 Mem orial Dariel Heart Rate 2018-07-09 14:06:00 [facility] Temperature Oral (F) 2018-07-09 14:06:00 98.4 F [facility] Dariel Weight 2018-07-09 14:06:00 [facility] Systolic (mm Hg) 2018-07-08 16:29:00 Vasile rial Edwards Diastolic (mm Hg) 2018-07-08 16:29:00 Mem orial Dariel Heart Rate 2018-07-08 16:29:00 [facility] Height 2018-07-08 16:29:00 165.1 cm [facility] Dariel Weight 2018-07-08 16:29:00 [facility] Dariel BMI Calculated 2018-07-08 16:29:00 Memori al Edwards Weight 2018-05-16 15:56:00 [facility] Respitory Rate 2018-05-16 15:56:00 Memori al Dariel Temperature Oral (F) 2018-05-16 15:56:00 98.2 F [facility] Heart Rate 2018-05-16 15:56:00 [facility] Dariel Systolic (mm Hg) 2018-05-16 15:56:00 Vasile rial Dariel Diastolic (mm Hg) 2018-05-16 15:56:00 Mem orial Dariel BMI Calculated 2018-03-28 18:21:00 Memori al Edwards Weight 2018-03-28 18:21:00 [facility] Dariel Height 2018-03-28 18:21:00 160.02 cm [facility] Dariel Heart Rate 2018-03-28 18:21:00 [facility] Dariel Temperature Oral (F) 2018-03-28 18:21:00 98.2 F [facility] Systolic (mm Hg) 2018-03-28 18:21:00 Vasile rial Dariel Diastolic (mm Hg) 2018-03-28 18:21:00 Mem orial Dariel Weight 2018-03-25 14:36:00 [facility] BMI Calculated 2018-03-25 14:36:00 Memori al Dariel Height 2018-03-25 14:36:00 160.02 cm [facility] Temperature Oral (F) 2018-03-25 14:36:00 97.8 F [facility] Heart Rate 2018-03-25 14:36:00 [facility] Dariel Respitory Rate 2018-03-25 14:36:00 Memori al Dariel Systolic (mm Hg) 2018-03-25 14:36:00 Vasile rial Dariel Diastolic (mm Hg) 2018-03-25 14:36:00 Mem orial Edwards BMI Calculated 2018-03-08 14:35:00 Memori al Edwards Weight 2018-03-08 14:35:00 [facility] Dariel Heart Rate 2018-03-08 14:35:00 [facility] Temperature Oral (F) 2018-03-08 14:35:00 97.8 F [facility] Dariel Systolic (mm Hg) 2018-03-08 14:35:00 Vasile rial Dariel Diastolic (mm Hg) 2018-03-08 14:35:00 Mem orial Dariel Height 2018-03-08 14:35:00 165.1 cm [facility] Dariel Weight 2018-03-05 20:47:00 [facility] Dariel Systolic (mm Hg) 2018-03-05 20:47:00 Vasile rial Edwards Diastolic (mm Hg) 2018-03-05 20:47:00 Mem orial Edwards Heart Rate 2018-03-05 20:47:00 [facility] Dariel Temperature Oral (F) 2018-03-05 20:47:00 98.3 F [facility]iel Respitory Rate 2018-03-05 20:47:00 Memori al Dariel Height 2018-02-13 19:12:00 161.29 cm [facility] Temperature Oral (F) 2018-02-13 19:12:00 98.1 F [facility]iel Heart Rate 2018-02-13 19:12:00 [facility] Respitory Rate 2018-02-13 19:12:00 Memori al Edwards Systolic (mm Hg) 2018-02-13 19:12:00 Vasile rial Edwards Diastolic (mm Hg) 2018-02-13 19:12:00 Mem orial Edwards Weight 2018-02-13 19:12:00 [facility]iel BMI Calculated 2018-02-13 19:12:00 Memori al Edwards Weight 2017-10-31 16:55:00 [facility] Dariel Height 2017-10-31 16:55:00 165.1 cm [facility]iel BMI Calculated 2017-10-31 16:55:00 [facility]ori [facility] Dariel Heart Rate 2017-10-31 16:55:00 [facility] Dariel Temperature Oral (F) 2017-10-31 16:55:00 98.8 F [facility]iel Systolic (mm Hg) 2017-10-31 16:55:00 Vasile rial Dariel Diastolic (mm Hg) 2017-10-31 16:55:00 Mem orial Edwards BMI Calculated 2017-09-19 14:28:00 [facility] Dariel Weight 2017-09-19 14:28:00 [facility] Dariel Height 2017-09-19 14:28:00 162.56 cm [facility]iel Systolic (mm Hg) 2017-09-19 14:28:00 Vasile rial Dariel Diastolic (mm Hg) 2017-09-19 14:28:00 Mem orial Edwards Respitory Rate 2017-09-19 14:28:00 Memori al Edwards Heart Rate 2017-09-19 14:28:00 [facility] Temperature Oral (F) 2017-09-19 14:28:00 98.2 F [facility] Weight 2017-08-28 20:25:00 [facility] Heart Rate 2017-08-28 20:25:00 [facility] Systolic (mm Hg) 2017-08-28 20:25:00 Vasile rial Dariel Diastolic (mm Hg) 2017-08-28 20:25:00 Mem o[facility]iel Systolic (mm Hg) 2017-08-28 19:58:00 Vasile [facility] Diastolic (mm Hg) 2017-08-28 19:58:00 [facility] Heart Rate 2017-08-28 19:58:00 [facility] Weight 2017-08-28 19:58:00 [facility] Weight 2017-08-03 20:19:00 [facility] Temperature Oral (F) 2017-08-03 20:19:00 97.9 F [facility] Systolic (mm Hg) 2017-08-03 20:19:00 Vasile rial Edwards Diastolic (mm Hg) 2017-08-03 20:19:00 [facility] Heart Rate 2017-08-03 20:19:00 [facility] Temperature Oral (F) 2017-07-25 19:39:00 97.4 F [facility] Systolic (mm Hg) 2017-07-25 19:39:00 Vasile rial Edwards Diastolic (mm Hg) 2017-07-25 19:39:00 [facility] Heart Rate 2017-07-25 19:39:00 [facility] Weight 2017-07-25 19:39:00 [facility] Height 2017-06-28 15:25:00 165.1 cm [facility] Weight 2017-06-28 15:25:00 [facility] BMI Calculated 2017-06-28 15:25:00 [facility] Heart Rate 2017-06-28 15:25:00 [facility] Systolic (mm Hg) 2017-06-28 15:25:00 Vasile rial Dariel Diastolic (mm Hg) 2017-06-28 15:25:00 [facility] Temperature Oral (F) 2017-06-14 14:26:00 97.8 F [facility] Weight 2017-06-14 14:26:00 [facility] Systolic (mm Hg) 2017-06-14 14:26:00 Vasile rial Edwards Diastolic (mm Hg) 2017-06-14 14:26:00 [facility] Heart Rate 2017-06-14 14:26:00 [facility] Weight 2017-04-27 15:20:00 [facility] Height 2017-04-27 15:20:00 163.83 cm [facility] BMI Calculated 2017-04-27 15:20:00 [facility] Systolic (mm Hg) 2017-04-27 15:20:00 Vasile rial Edwards Diastolic (mm Hg) 2017-04-27 15:20:00 [facility] Temperature Oral (F) 2017-04-27 15:20:00 98.5 F [facility] Heart Rate 2017-04-27 15:20:00 [facility] Respitory Rate 2017-04-27 15:20:00 [facility] Procedures Procedure Date / Time Performing Clinician Source Performed SARS-COV-2 COVID-19 2021-03-29 20:09:48 Doctor Unassigned, No [facility] [place] VACCINE,0.3ML,IM Name [facility] ([facility]) Mammogram 2018-07-08 06:00:00 [facility] Her hawk Cataract surgery 2018-06-24 06:00:00 [facility] Jared rmann Removal impacted 2018-03-08 15:45:00 [facility] Jared salmonann cerumen requiring instrumentation, unilateral Colonoscopy<sup>1</sup> 2016-07-19 06:00:00 Vasile [facility] Procedure on 2013-10-09 05:00:00 [facility] Her hawk wrist<sup>2</sup> Colonoscopy 2012-12-18 05:00:00 [facility] Her hawk CEIOL - Cataract 2011-02-13 05:00:00 [facility] Jared rmann extraction and insertion of intraocular lens<sup>3</sup> Arthroscopy of 2010-06-11 00:00:00 [facility] Her hawk knee<sup>4</sup> CRIS BSO - Total 2000-06-11 00:00:00 [facility] Her hawk abdominal hysterectomy and bilateral salpingo-oophorectomy<s up>5</sup> Bunionectomy<sup>6</sup [facility] > Rotator cuff [facility] repair<sup>8</sup> Pneumococcal [facility] vaccination<sup>7</sup> Simple dental [facility] extraction<sup>9</sup> Plan of Care Planned Activity Planned Date Details Comments Source Future Scheduled 2023-02-[address] [facility] Test 00:00:00 (Season Ended) [code = Medic al Center INFLUENZA VACCINE (Season Ended)] Future Scheduled 2023-02-09 Influenza Vaccine (#1) [facility] 00:00:00 [code = Influenza Medical Ce nter Vaccine (#1)] Future Scheduled 2022-06-11 [place] RISK SCREENING [facility] DEPRESSION SCREENING (12+)] Future Scheduled 2022-02-09 INFLUENZA VACCINE (#1) C [...] DXA [facility] Test 00:00:00 SCAN] [facility] Future Scheduled 1940 DXA SCAN [code = DXA [facility] Test 00:00:00 SCAN] Medical Center Future Scheduled 1940 DXA SCAN [code = DXA [facility] Test 00:00:00 SCAN] Medical Center Encounters Start End Encounter Admission Attending Care Care Encounter Source Date/Time Date/Time Type Type Clinicians Facility Department ID 2021-03-16 Inpatient [place], [facility] Surgery [id number] SLE 00:27:59 DARRICK 2021-11-05 2021-11-05 Telephone Nurse, Reid [facility] 1.2.840.114 [id number] Univers 00:00:00 00:00:00 Db Urgent HEALTH 350.1.13.10 ity of [facility] [id number] Lanre as BILL?BLEA [phone] [address] 2021-11-04 2021-11-04 Laboratory Only, Reid Castillo Test [facility] 1.2.8 40.114 [id number] Univers 11:30:00 11:45:00 Only Bel Ramos 350.1.13.10 ity [facility] 4.2.7.2.686 Lanre as BLIL?BLEA [phone] [address] 2021-11-04 2021-11-04 Outpatient R TON [facility] [id number] Univers 11:30:00 11:30:00 BEL [facility] 2021-03-29 2021-03-29 Outpatient R AUDRA [facility] [id number] Univers 15:30:00 15:30:00 ALEK cintron [facility] 2021-03-29 2021-03-29 Imm/Inj Nurse, Adc Pob Immunization [facility] 1.2.840.114 [id number] Univers 15:09:08 15:09:19 Visit Alek Zhu 350.1.13 .10 ity [facility] [place]7.2.[place] [phone] [address] 2021-01-28 2021-01-28 Letter DMITRY Arrieta 1.2.840.114 [id number] Univers 00:00:00 00:00:00 (Out) Chantale Ackerman NOAH 350.1.13.10 it y of HOSPITAL 4.2.7.2.686 Lanre as [phone] [address] 2021-01-27 2021-01-27 Outpatient R LARRYMICHELLEPia, [facility] [id number] Univers 13:35:00 13:35:00 RANIA ity of [facility] 2021-01-27 2021-01-27 Letter Doctor DMITRY 1.2.840.114 [id number] Univers 00:00:00 00:00:00 (Out) Unassigned, NOAH 350.1.13.10 ity of [place] [facility] 4.2.7.2.686 [place] as [phone] [address] 2021-01-27 2021-01-27 Letter Doctor DMITRY 1.2.840.114 [id number] Univers 00:00:00 00:00:00 (Out) Unassigned, NOAH 350.1.13.10 ity of [place] [facility] 4.2.7.2.686 [place]re as [phone] [address] 2020-01-07 2020-01-07 Outpatient EL [facility] [id number] [facility] 00:00:00 00:00:00 2019-11-25 2019-11-25 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 [facility] Family 4 [id number] Memoria 14:15:00 14:15:00 Pre-Reg r Medicine 90 l [facility] 2019-11-25 2019-11-25 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 [facility] Family 4 [id number] Memoria 14:15:00 14:15:00 Pre-Reg r Medicine 89 l Edwin Santanaann 2019-11-25 2019-11-25 Outpatient MHIE MHIE [id number] Memoria 09:15:00 09:15:00 89 gladys Vieira 2019-11-25 2019-11-25 [facility] [id number] 09:15:00 09:15:00 Mar Haider 2019-11-18 2019-11-18 Outpatient MHIE MHIE [id number] Memoria 08:15:00 08:15:00 89 l Dariel 2019-11-18 2019-11-18 Outpatient MHIE MHIE [id number] Memoria 08:15:00 08:15:00 89 gladys SantanaDariel 2019-10-01 2019-10-02 [place] [id number] Memoria 14:45:00 04:59:59 r Cardiology 83 gladys Vieira 2019-10-01 2019-10-02 [place] [id number] Memoria 14:45:00 04:59:59 r Cardiology 83 gladys Vieira 2019-10-01 2019-10-01 Outpatient Trent L MHMG MG [id number] 09:45:00 23:59:59 Chrissy 82 2019-10-01 2019-10-01 Outpatient MHIE MHIE [id number] Memoria 09:45:00 09:45:00 82 gladys Edwards 2019-09-29 2019-10-01 Phone nullFlavo MG [id number] Memoria 16:13:37 04:59:59 Message r Cardiology 15 gladys Vieira 2019-09-29 2019-10-01 Phone nullFlavo MG [id number] Memoria 16:13:37 04:59:59 Message r Cardiology 15 gladys Vieira 2019-09-29 2019-09-30 Outpatient MHMG MG [id number] 11:13:37 23:59:59 15 2019-08-20 2019-08-22 Phone nullFlavo [facility] Family [id number] Memoria 21:25:11 04:59:59 Message r Medicine 14 gladys Vieira 2019-08-20 2019-08-22 Phone nullFlavo [facility] Family [id number] Memoria 21:25:11 04:59:59 Message r Medicine 14 gladys Vieira 2019-08-20 2019-08-21 Outpatient MHMG MG [id number] 16:25:11 23:59:59 14 2019-08-14 2019-08-15 Outpatient nullFlavo MG Family 4 [id number] Memoria 15:15:00 05:59:59 r Medicine 85 gladys Vieira 2019-08-14 2019-08-15 Outpatient nullFlavo MG Family 4 [id number] Memoria 15:15:00 05:59:59 r Medicine 85 gladys Vieira 2019-08-14 2019-08-14 Outpatient Beth, MHMG MG [id number] 09:15:00 23:59:59 [facility] 2019-08-14 2019-08-14 Outpatient MHIE MHIE [id number] Memoria 09:15:00 09:15:00 84 gladys Edwards 2019-08-05 2019-08-05 Outpatient MHIE MHIE [id number] Memoria 07:45:00 07:45:00 85 l Edwards 2019-08-05 2019-08-05 Outpatient MHIE MHIE [id number] Memoria 07:45:00 07:45:00 85 gladys Edwards 2019-07-22 2019-07-23 Outpatient nullFlavo MG Family 4 [id number] Memoria 22:15:00 05:59:59 r Medicine 89 gladys Pineda Edwards 2019-07-22 2019-07-23 Outpatient nullFlavo MG Family 4 [id number] Memoria 22:15:00 05:59:59 r Medicine 89 gladys Pineda Edwards 2019-07-22 2019-07-22 Outpatient Beth, MG MG [id number] 16:15:00 23:59:59 [facility] 2019-07-22 Outpatient MHIE IE [id number] Memoria 16:15:00 16:15:00 88 gladys Edwards 2019-07-10 2019-07-10 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 [facility] hot molder 4 [id number] Memoria 16:00:00 16:00:00 Pre-Reg r [place] 65 l Edwards 2019-07-10 2019-07-10 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 MG hot molder 4 [id number] Memoria 16:00:00 16:00:00 Pre-Reg r Edwin 64 l Edwards 2019-07-10 2019-07-10 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 [id number] Memoria 15:30:00 15:30:00 Pre-Reg r Radiology 63 l [place] Edwards 2019-07-10 2019-07-10 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 [id number] Memoria 15:30:00 15:30:00 Pre-Reg r Radiology 63 l Edwin Edwards 2019-07-10 2019-07-10 Outpatient MHIE MHIE [id number] Memoria 10:00:00 10:00:00 63 l Dariel 2019-07-10 2019-07-10 Outpatient Giovannialli, MHMG MHMG [id number] 10:00:00 10:00:00 Brendon Ibrahim 2019-07-10 2019-07-10 Outpatient VISIT, MHMG MHMG [id number] 09:30:00 09:30:[address] 64 MAMMO 2019-06-17 2019-06-18 Outpatient nullFlavo [facility] [id number] Memoria 20:45:00 05:59:59 r Radiology 88 gladys Vieira 2019-06-17 2019-06-18 Outpatient nullFlavo [facility]MG [id number] Memoria 20:45:00 05:59:59 r Radiology 88 gladys Vieira 2019-06-17 2019-06-18 Outpatient nullFlavo [facility] Family 4 [id number] Memoria 19:45:00 05:59:59 r Medicine 87 gladys Vieira 2019-06-17 2019-06-18 Outpatient nullFlavo [facility] Family 4 [id number] Memoria 19:45:00 05:59:59 r Medicine 87 gladys Vieira 2019-06-17 2019-06-17 Outpatient VISIT, MHMG MHMG [id number] 14:45:00 23:59:[address] 88 XRAY 2019-06-17 2019-06-17 Outpatient Nwani, MHMG MHMG [id number] 13:45:00 23:59:59 José Miguel 86 Darci 2019-06-17 2019-06-17 Outpatient MHIE MHIE [id number] Memoria 14:45:00 14:45:00 87 gladys Vieira 2019-06-17 2019-06-17 Outpatient MHIE MHIE [id number] Memoria 13:45:00 13:45:00 86 gladys Vieira 2019-05-16 2019-05-17 Outpatient nullFlavo [facility] Family 4 [id number] Memoria 16:00:00 05:59:59 r Medicine 83 gladys Pineda Edwards 2019-05-16 2019-05-17 Outpatient nullFlavo [facility] Family 4 [id number] Memoria 16:00:00 05:59:59 r Medicine 83 l Edwinjuancarlos Vieira 2019-05-16 2019-05-16 Outpatient Beth, MHMG MHMG [id number] 10:00:00 23:59:59 Mar Tim Meliza 2019-05-16 2019-05-16 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 [facility] Family 4 [id number] Memoria 16:00:00 16:00:00 Pre-Reg r Medicine 74 gladys Vieira 2019-05-16 2019-05-16 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 [facility] Family 4 [id number] Memoria 16:00:00 16:00:00 Pre-Reg r Medicine 74 gladys Vieira 2019-05-16 2019-05-16 Outpatient MHIE MHIE [id number] Memoria 10:00:00 10:00:00 83 gladys Vieira 2019-05-16 2019-05-16 Outpatient MHIE MHIE [id number] Memoria 10:00:00 10:00:00 74 gladys Vieira 2019-05-16 2019-05-16 Outpatient Beth, MHMG MG [id number] 10:00:00 10:00:00 Mar Haider 2019-05-09 2019-05-09 Outpatient MHIE MHIE [id number] Memoria 07:10:00 07:10:00 75 gladys Vieira 2019-05-09 2019-05-09 Outpatient MHIE MHIE [id number] Memoria 07:10:00 07:10:00 75 gladys Vieira 2019-04-09 2019-04-11 Phone nullFlavo MG Family [id number] Memoria 14:52:12 04:59:59 Message r Medicine 13 gladys Vieira 2019-04-09 2019-04-11 Phone nullFlavo MG Family [id number] Memoria 14:52:12 04:59:59 Message r Medicine 13 gladys Vieira 2019-04-09 2019-04-10 Outpatient MHMG MHMG [id number] 09:52:12 23:59:59 13 2019-04-02 2019-04-03 Outpatient nullFlavo MHMG [id number] Memoria 14:15:00 04:59:59 r Cardiology 81 gladys Vieira 2019-04-02 2019-04-03 [place] [id number] Memoria 14:15:00 04:59:59 r Cardiology 81 gladys Vieira 2019-04-02 2019-04-02 Outpatient Gladys Newman MHMG MG [id number] 09:15:00 23:59:59 Chrissy 81 2019-04-02 2019-04-02 Outpatient MHIE MHIE [id number] Memoria 09:15:00 09:15:00 80 gladys Vieira 2019-03-28 2019-03-28 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 MHMG [id number] Memoria 15:15:00 15:15:00 Pre-Reg r Cardiology 80 gladys Vieira 2019-03-28 2019-03-28 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 [facility] [id number] Memoria 15:15:00 15:15:00 Pre-Reg r Cardiology 80 gladys Vieira 2019-03-28 2019-03-28 Outpatient MHIE MHIE [id number] Memoria 10:15:00 10:15:00 79 gladys Vieira 2019-03-28 2019-03-28 Outpatient Gladys Newman MG MG [id number] 10:15:00 10:15:00 Chrissy 80 2019-03-27 2019-03-28 Outpatient nullFlavo [facility] Family 4 [id number] Memoria 18:00:00 04:59:59 r Medicine 82 gladys Vieira 2019-03-27 2019-03-28 Outpatient nullFlavo [facility] Family 4 [id number] Memoria 18:00:00 04:59:59 r Medicine 82 gladys Vieira 2019-03-27 2019-03-27 Outpatient Nwani, MHMG MG [id number] 13:00:00 23:59:59 José Miguel 82 Darci 2019-03-27 2019-03-27 Outpatient MHIE MHIE [id number] Memoria 13:00:00 13:00:00 81 gladys Vieira 2019-03-24 2019-03-24 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 MHMG [id number] Memoria 13:45:00 13:45:00 Pre-Reg r Cardiology 73 gladys Vieira 2019-03-24 2019-03-24 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 MHMG [id number] Memoria 13:45:00 13:45:00 Pre-Reg r Cardiology 73 gladys Vieira 2019-03-24 2019-03-24 Outpatient MHIE MHIE [id number] Memoria 08:45:00 08:45:00 73 gladys Vieira 2019-03-24 2019-03-24 Outpatient Gladys Newman MHMG MHMG [id number] 08:45:00 08:45:00 Chrissy Fong 2019-03-17 2019-03-17 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 [facility] Family 4 [id number] Memoria 19:45:00 19:45:00 Pre-Reg r Medicine 79 gladys Vieira 2019-03-17 2019-03-17 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 [facility] Family 4 [id number] Memoria 19:45:00 19:45:00 Pre-Reg r Medicine 79 gladys Vieira 2019-03-17 2019-03-17 Outpatient Espinoza, MG MHMG [id number] 14:45:00 14:45:00 Luca 79 2019-03-17 2019-03-17 Outpatient MHIE MHIE [id number] Memoria 13:30:00 13:30:00 78 gladys Vieira 2019-02-27 2019-02-28 Outpatient nullFlavo [facility] Family 4 [id number] Memoria 15:15:00 04:59:59 r Medicine 78 gladys Vieira 2019-02-27 2019-02-28 Outpatient nullFlavo [facility] Family 4 [id number] Memoria 15:15:00 04:59:59 r Medicine 78 gladys Vieira 2019-02-27 2019-02-27 Outpatient Beth, MG MG [id number] 10:15:00 23:59:59 Mar 77 Joser 2019-02-27 2019-02-27 Outpatient MHIE MHIE [id number] Memoria 10:15:00 10:15:00 77 gladys Vieira 2019-01-01 2019-01-02 Outpatient nullFlavo [facility] Family 4 [id number] Memoria 13:30:00 04:59:59 r Medicine 77 gladys Vieira 2019-01-01 2019-01-02 Outpatient nullFlavo [facility] Family 4 [id number] Memoria 13:30:00 04:59:59 r Medicine 77 gladys Vieira 2019-01-01 2019-01-01 Outpatient MHMG MHMG [id number] 08:30:00 23:59:59 77 2019-01-01 2019-01-01 Outpatient MHIE MHIE [id number] Memoria 08:30:00 08:30:00 76 gladys Vieira 2018-11-15 2018-11-16 Outpatient nullFlavo MG Family 4 [id number] Memoria 14:00:00 04:59:59 r Medicine 73 gladys Vieira 2018-11-15 2018-11-16 Outpatient nullFlavo MG Family 4 [id number] Memoria 14:00:00 04:59:59 r Medicine 73 gladys Vieira 2018-11-15 2018-11-15 [facility] [id number] 09:00:00 23:59:59 Onofre P 72 2018-11-15 2018-11-15 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 MG Family 4 [id number] Memoria 14:00:00 14:00:00 Pre-Reg r Medicine 60 gladys Vieira 2018-11-15 2018-11-15 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 MG Family 4 [id number] Memoria 14:00:00 14:00:00 Pre-Reg r Medicine 60 gladys Vieira 2018-11-15 2018-11-15 Outpatient MHIE MHIE [id number] Memoria 09:00:00 09:00:00 72 gladys Vieira 2018-11-15 2018-11-15 Outpatient MHIE MHIE [id number] Memoria 09:00:00 09:00:00 60 gladys Vieira 2018-11-15 2018-11-15 [facility] [id number] 09:00:00 09:00:00 Onofre Bonner 60 2018-11-08 2018-11-08 Outpatient MHIE MHIE [id number] Memoria 07:00:00 07:00:00 61 gladys Vieira 2018-11-08 2018-11-08 Outpatient MHIE MHIE [id number] Memoria 07:00:00 07:00:00 61 gladys Vieira 2018-09-23 2018-09-24 Outpatient nullFlavo [facility] [id number] Memoria 15:15:00 04:59:59 r Cardiology 57 gladys Vieira 2018-09-23 2018-09-24 Outpatient nullFlavo [facility] [id number] Memoria 15:15:00 04:59:59 r Cardiology 57 gladys Vieira 2018-09-23 2018-09-23 Outpatient MazeGladys graham [facility] [id number] 10:15:00 23:59:59 Chrissy 57 2018-09-23 2018-09-23 Outpatient MHIE MHIE [id number] Memoria 10:15:00 10:15:00 57 gladys Vieira 2018-09-10 2018-09-11 [place] [id number] Memoria 21:00:00 04:59:59 r Pulmonology 50 gladys Vieira 2018-09-10 2018-09-11 [place] [id number] Memoria 21:00:00 04:59:59 r Pulmonology 50 gladys Vieira 2018-09-10 2018-09-10 [facility] Thrasher[facility] [id number] 16:00:00 23:59:59 Alan 50 Autumnjocelynncortney 2018-09-10 2018-09-10 Outpatient NICOLEIE MHIE [id number] Memoria 16:00:00 16:00:00 50 gladys Vieira 2018-08-01 2018-08-02 Outpatient nullFlavo MG Family 4 [id number] Memoria 14:30:00 05:59:59 r Medicine 71 gladys Vieira 2018-08-01 2018-08-02 Outpatient nullFlavo MG Family 4 [id number] Memoria 14:30:00 05:59:59 r Medicine 71 gladys Vieira 2018-08-01 2018-08-01 Outpatient Mission, [facility] [id number] 08:30:00 23:59:59 [place] 71 de Laurencandiceze 2018-08-01 2018-08-01 Outpatient MHIE MHIE [id number] Memoria 08:30:00 08:30:00 71 gladys Vieira 2018-07-11 2018-07-12 Outpt Diag nullFlavo [facility] [id number] Memoria 14:27:00 05:59:00 Services r Outpatient 02 l Imaging Dariel Hettinger 2018-07-11 2018-07-12 Outpt Diag nullFlavo [facility] [id number] Memoria 14:27:00 05:59:00 Services r Outpatient 02 l Imaging Dariel Hettinger 2018-07-11 2018-07-11 Outpatient Sangalli, MH29 MH29 [id number] 08:27:00 23:59:00 Brendon Mckeon 2018-07-11 2018-07-11 Outpatient Sangalli, MH29 MH29 [id number] 08:27:00 23:59:00 Brendon Mckeon 2018-07-09 2018-07-10 Outpatient nullFlavo [facility] Family 4 [id number] Memoria 15:30:00 05:59:59 r Medicine 70 gladys Santanaann 2018-07-09 2018-07-10 Outpatient nullFlavo [facility] Family 4 [id number] Memoria 15:30:00 05:59:59 r Medicine 71 gladys Pineda Edwards 2018-07-09 2018-07-10 Outpatient nullFlavo [facility] Family 4 [id number] Memoria 14:00:00 05:59:59 r Medicine 67 gladys Pineda Edwards 2018-07-09 2018-07-10 Outpatient nullFlavo [facility] Family 4 [id number] Memoria 14:00:00 05:59:59 r Medicine 67 gladys Pineda Edwards 2018-07-09 2018-07-09 Outpatient VISIT, MHMG MHMG [id number] 09:30:00 23:59:59 [address]URSE STWH 71 DEXA 2018-07-09 2018-07-09 Outpatient VISIT, MHMG MHMG [id number] 09:30:00 23:59:59 NURSE STWH 71 DEXA 2018-07-09 2018-07-09 Outpatient MHMG MHMG [id number] 08:00:00 23:59:59 66 2018-07-09 2018-07-09 Outpatient MHMG MHMG [id number] 08:00:00 23:59:59 67 2018-07-09 2018-07-09 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 [facility] [id number] Memoria 15:30:00 15:30:00 Pre-Reg r Radiology 69 gladys Santanaann 2018-07-09 2018-07-09 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 [facility] [id number] Memoria 15:30:00 15:30:00 Pre-Reg r Radiology 68 gladys Santanaann 2018-07-09 2018-07-09 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 [facility] [id number] Memoria 15:30:00 15:30:00 Pre-Reg r Radiology 67 l [place] Edwards 2018-07-09 2018-07-09 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 MHMG [id number] Memoria 15:30:00 15:30:00 Pre-Reg r Radiology 65 gladys Vieira 2018-07-09 2018-07-09 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 MHMG [id number] Memoria 15:30:00 15:30:00 Pre-Reg r Radiology 68 gladys Vieira 2018-07-09 2018-07-09 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 MHMG [id number] Memoria 15:30:00 15:30:00 Pre-Reg r Radiology 69 gladys Vieira 2018-07-09 2018-07-09 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 MHMG [id number] Memoria 15:30:00 15:30:00 Pre-Reg r Radiology 66 gladys Vieira 2018-07-09 2018-07-09 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 [facility] [id number] Memoria 15:30:00 15:30:00 Pre-Reg r Radiology 70 gladys Vieira 2018-07-09 2018-07-09 Outpatient MHIE MHIE [id number] Memoria 09:30:00 09:30:00 70 gladys Vieira 2018-07-09 2018-07-09 Outpatient MHIE MHIE [id number] Memoria 09:30:00 09:30:00 67 gladys Vieira 2018-07-09 2018-07-09 Outpatient MHIE MHIE [id number] Memoria 09:30:00 09:30:00 69 gladys Vieira 2018-07-09 2018-07-09 Outpatient MHIE MHIE [id number] Memoria 09:30:00 09:30:00 68 gladys Vieira 2018-07-09 2018-07-09 Outpatient MHIE MHIE [id number] Memoria 09:30:00 09:30:00 65 gladys SantanaDariel 2018-07-09 2018-07-09 Outpatient VISIT, MHMG MHMG [id number] 09:30:00 09:30:00 NURSE [address]WH 67 DENISE 2018-07-09 2018-07-09 Outpatient VISIT, MHMG MHMG [id number] 09:30:00 09:30:00 NURSE [address]WH 65 DENISE 2018-07-09 2018-07-09 Outpatient VISIT, MHMG MHMG [id number] 09:30:00 09:30:00 NURSE STWH 69 DEXA 2018-07-09 2018-07-09 Outpatient VISIT, MHMG MHMG [id number] 09:30:00 09:30:00 NURSE STWH 70 DEXA 2018-07-09 2018-07-09 Outpatient VISIT, MHMG MHMG [id number] 09:30:00 09:30:00 NURSE STWH 66 DEXA 2018-07-09 2018-07-09 Outpatient VISIT, MHMG MHMG [id number] 09:30:00 09:30:00 NURSE STWH 68 DEXA 2018-07-09 2018-07-09 Outpatient VISIT, MHMG MHMG [id number] 09:30:00 09:30:00 NURSE STWH 69 DEXA 2018-07-09 2018-07-09 Outpatient VISIT, MHMG MHMG [id number] 09:30:00 09:30:00 NURSE STWH 70 DEX 2018-07-09 2018-07-09 Outpatient MHIE MHIE [id number] Memoria 08:00:00 08:00:00 66 gladys Dariel 2018-07-08 2018-07-09 Outpatient nullFlavo [facility] PUBLICIST 4 [id number] Memoria 16:00:00 05:59:59 r Edwin 43 gladys Edwards 2018-07-08 2018-07-09 Outpatient nullFlavo [facility] PUBLICIST 4 [id number] Memoria 16:00:00 05:59:59 r Edwin 43 gladys Edwards 2018-07-08 2018-07-09 Outpatient nullFlavo [facility] Family 4 [id number] Memoria 15:30:00 05:59:59 r Medicine 62 gladys Pineda Edwards 2018-07-08 2018-07-09 Outpatient nullFlavo [facility] Family 4 [id number] Memoria 15:30:00 05:59:59 r Medicine 62 gladys Pineda Dariel 2018-07-08 2018-07-08 Outpatient Sangalli, MHMG MHMG [id number] 10:00:00 23:59:59 Brendon Mckeon 44 2018-07-08 2018-07-08 Outpatient Sangalli, MHMG MHMG [id number] 10:00:00 23:59:59 Brendon Mckeon 43 2018-07-08 2018-07-08 Outpatient VISIT, [facility] [id number] 09:30:00 23:59:[address] 62 MAGGIA 2018-07-08 2018-07-08 Outpatient VISIT, [facility] [id number] 09:30:00 23:59:[address] 62 DEXA 2018-07-08 2018-07-08 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 [facility] [id number] Memoria 15:30:00 15:30:00 Pre-Reg r Radiology 42 gladys Vieira 2018-07-08 2018-07-08 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 [facility] [id number] Memoria 15:30:00 15:30:00 Pre-Reg r Radiology 42 gladys Vieira 2018-07-08 2018-07-08 Outpatient MHIE [facility] [id number] Memoria 10:00:00 10:00:00 42 gladys Vieira 2018-07-08 2018-07-08 Outpatient MHIE [facility] [id number] Memoria 10:00:00 10:00:00 43 gladys Vieira 2018-07-08 2018-07-08 Outpatient MHIE [facility] [id number] Memoria 09:30:00 09:30:00 62 gladys Vieira 2018-07-08 2018-07-08 Outpatient VISIT, MG [facility] [id number] 09:30:00 09:30:[address] 42 EMERSONO 2018-07-08 2018-07-08 Outpatient VISIT, MG [facility] [id number] 09:30:00 09:30:00 [facility]-05-16 2018-05-17 Outpatient nullFlavo [facility] 4 [id number] Memoria 15:45:00 05:59:59 r Medicine 59 gladys Vieira 2018-05-16 2018-05-17 Outpatient nullFlavo [facility] 4 [id number] Memoria 15:45:00 05:59:59 r Medicine 59 gladys Vieira 2018-05-16 2018-05-16 Outpatient Abraham, MG [facility] [id number] 09:45:00 23:59:59 Onofre Bonner 59 2018-05-16 2018-05-16 Outpatient MHIE [facility] [id number] Memoria 09:45:00 09:45:00 59 gladys SantanaDariel 2018-05-09 2018-05-09 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 [facility] 4 [id number] Memoria 14:30:00 14:30:00 Pre-Reg r Medicine 40 gladys Vieira 2018-05-09 2018-05-09 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 [facility] Family 4 [id number] Memoria 14:30:00 14:30:00 Pre-Reg r Medicine 40 gladys Vieira 2018-05-09 2018-05-09 Outpatient NICOLEIE [facility] [id number] Memoria 08:30:00 08:30:00 40 gladys Vieira 2018-05-09 2018-05-09 [facility] [id number] 08:30:00 08:30:00 Onofre P 40 2018-03-28 2018-03-29 Outpatient nullFlavo MG Family 4 [id number] Memoria 18:15:00 04:59:59 r Medicine 58 gladys Vieira 2018-03-28 2018-03-29 Outpatient nullFlavo MG Family 4 [id number] Memoria 18:15:00 04:59:59 r Medicine 58 gladys Vieira 2018-03-28 2018-03-28 [facility] Beth, [facility] [id number] 13:15:00 23:59:59 Mar 58 Joser 2018-03-28 2018-03-28 Outpatient NICOLEIE MHIE [id number] Memoria 13:15:00 13:15:00 58 gladys Vieira 2018-03-25 2018-03-26 [place] [id number] Memoria 14:45:00 04:59:59 r Cardiology 56 gladys Vieira 2018-03-25 2018-03-26 [place] [id number] Memoria 14:45:00 04:59:59 r Cardiology 56 gladys Vieira 2018-03-25 2018-03-25 Outpatient Mazegladys L MG MG [id number] 09:45:00 23:59:59 Chrissy 56 2018-03-25 2018-03-25 Outpatient MHIE MHIE [id number] Memoria 09:45:00 09:45:00 56 gladys Vieira 2018-03-21 2018-03-21 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 [id number] Memoria 14:30:00 14:30:00 Pre-Reg r Cardiology 51 gladys Vieira 2018-03-21 2018-03-21 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 [id number] Memoria 14:30:00 14:30:00 Pre-Reg r Cardiology 51 gladys Vieira 2018-03-21 2018-03-21 Outpatient MHIE IE [id number] Memoria 09:30:00 09:30:00 51 gladys Vieira 2018-03-21 2018-03-21 Outpatient Glad[facility] [id number] 09:30:00 09:30:00 Chrissy 51 2018-03-08 2018-03-09 [place] [id number] Memoria 14:30:00 04:59:59 r Otolaryngol 55 gladys Santana hilton 2018-03-08 2018-03-09 Outpatient nullFlavo [facility] [id number] Memoria 14:30:00 04:59:59 r Otolaryngol 55 l lionel Santana hilton 2018-03-08 2018-03-08 Out[facility] Donepvic[facility] [id number] 09:30:00 23:59:59 Sreekrishna 55 Mahesh 2018-03-08 2018-03-08 Outpatient NICOLEIE NICOLEIE [id number] Memoria 09:30:00 09:30:00 55 gladys Vieira 2018-03-05 2018-03-06 Outpatient nullFlavo [facility] Family 4 [id number] Memoria 20:15:00 04:59:59 r Medicine 54 gladys Vieira 2018-03-05 2018-03-06 Outpatient nullFlavo MG Family 4 [id number] Memoria 20:15:00 04:59:59 r Medicine 54 gladys Vieira 2018-03-05 2018-03-05 [facility] [id number] 15:15:00 23:59:59 Onofre P 54 2018-03-05 2018-03-05 Outpatient MHIE IE [id number] Memoria 15:15:00 15:15:00 54 gladys Vieira 2018-02-13 2018-02-14 Outpatient nullFlavo [facility] Family 4 [id number] Memoria 18:45:00 04:59:59 r Medicine 53 glayds Santanaann 2018-02-13 2018-02-14 Outpatient nullFlavo MG Family 4 [id number] Memoria 18:45:00 04:59:59 r Medicine 53 gladys Vieira 2018-02-13 2018-02-13 Outpatient Abraham [facility] [id number] 13:45:00 23:59:59 Onofre Bonner 53 2018-02-13 2018-02-13 Outpatient MHIE IE [id number] Memoria 13:45:00 13:45:00 53 gladys SantanaEdwards 2017-10-31 2017-11-01 Outpatient nullFlavo MNA [id number] Memoria 17:00:00 04:59:59 r Neuroscienc 53 l e [facility] 2017-10-31 2017-11-01 Outpatient nullFlavo MNA [id number] Memoria 17:00:00 04:59:59 r Neuroscienc 53 l e [facility] 2017-10-31 2017-10-31 [id number] 12:00:00 23:59:59 53 2017-10-31 2017-10-31 Outpatient IE IE [id number] Memoria 12:00:00 12:00:00 52 gladys Edwards 2017-09-28 2017-09-30 Phone nullFlavo MNA [id number] Memoria 18:18:00 04:59:59 Message r Neuroscienc 12 l e [facility] 2017-09-28 2017-09-30 Phone nullFlavo MNA [id number] Memoria 18:18:00 04:59:59 Message r Neuroscienc 12 l e [facility] 2017-09-28 2017-09-29 Outpatient MHMISCHER MISCHER [id number] 13:18:00 23:59:59 12 2017-09-24 2017-09-26 Phone nullFlavo [facility] Family [id number] Memoria 13:37:00 04:59:59 Message r Medicine 11 gladys Vieira 2017-09-24 2017-09-26 Phone nullFlavo [facility] Family [id number] Memoria 13:37:00 04:59:59 Message r Medicine 11 gladys Vieira 2017-09-24 2017-09-25 [facility]patient [facility] [id number] 08:37:00 23:59:59 11 2017-09-19 2017-09-20 [place] [id number] Memoria 14:15:00 04:59:59 r Cardiology 39 gladys Vieira 2017-09-19 2017-09-20 [place] [id number] Memoria 14:15:00 04:59:59 r Cardiology 39 gladys Vieira 2017-09-19 2017-09-19 Outpatient Aidal, L [facility]MG MG [id number] 09:15:00 23:59:59 Chrissy 40 2017-09-19 2017-09-19 Outpatient Aidal, L [facility]MG MG [id number] 09:15:00 23:59:59 Chrissy 40 2017-09-19 2017-09-19 Outpatient MHIE MHIE [id number] Memoria 09:15:00 09:15:00 39 gladys Vieira 2017-08-28 2017-08-29 Outpatient nullFlavo MG Family 4 [id number] Memoria 20:30:00 04:59:59 r Medicine 50 gladys Vieira 2017-08-28 2017-08-29 Outpatient nullFlavo MG Family 4 [id number] Memoria 20:30:00 04:59:59 r Medicine 50 gladys Vieira 2017-08-28 2017-08-29 [place] [id number] Memoria 19:30:00 04:59:59 r Pulmonology 34 gladys Vieira 2017-08-28 2017-08-29 [place] [id number] Memoria 19:30:00 04:59:59 r Pulmonology 34 gladys Vieira 2017-08-28 2017-08-28 Outpatient Beth, MG MG [id number] 15:30:00 23:59:59 Mar Atiya Meliza 2017-08-28 2017-08-28 Outpatient Thrasher, MG MG [id number] 14:30:00 23:59:59 Alan Park Hellercortney 2017-08-28 2017-08-28 Outpatient Thrasher, MG MG [id number] 14:30:00 23:59:59 Alan 34 Joseph 2017-08-28 2017-08-28 Outpatient MHIE MHIE [id number] Memoria 15:30:00 15:30:00 49 gladys Vieira 2017-08-28 2017-08-28 Outpatient MHIE MHIE [id number] Memoria 14:30:00 14:30:00 34 gladys Vieira 2017-08-03 2017-08-04 Outpatient nullFlavo MG Family 4 [id number] Memoria 20:00:00 05:59:59 r Medicine 49 gladys Vieira 2017-08-03 2017-08-04 Outpatient nullFlavo MG Family 4 [id number] Memoria 20:00:00 05:59:59 r Medicine 49 gladys Vieira 2017-08-03 2017-08-03 Outpatient Beth, [facility] [id number] 14:00:00 23:59:59 Mar Augusto Haider 2017-08-03 2017-08-03 Outpatient IE IE [id number] Memoria 14:00:00 14:00:00 48 gladys Vieira 2017-08-01 2017-08-03 Outside nullFlavo MG [id number] Memoria 21:46:00 05:59:59 Medical r Cardiology 10 l Maxx Vieira 2017-08-01 2017-08-03 Outside nullFlavo MG [id number] Memoria 21:46:00 05:59:59 Medical r Cardiology 10 l Maxx Vieira 2017-08-01 2017-08-02 [facility]patient [facility] [id number] 15:46:00 23:59:59 10 2017-07-25 2017-07-26 Outpatient nullFlavo MG Family 4 [id number] Memoria 20:15:00 05:59:59 r Medicine 48 gladys Vieira 2017-07-25 2017-07-26 Outpatient nullFlavo MG Family 4 [id number] Memoria 20:15:00 05:59:59 r Medicine 48 gladys Vieira 2017-07-25 2017-07-26 Outpatient nullFlavo MG Family 4 [id number] Memoria 19:15:00 05:59:59 r Medicine 46 gladys Vieira 2017-07-25 2017-07-26 Outpatient nullFlavo MG Family 4 [id number] Memoria 19:15:00 05:59:59 r Medicine 46 gladys Vieira 2017-07-25 2017-07-25 Outpatient VISIT, MG MG [id number] 14:15:00 23:59:59 NURSE STWH 48 XRAY 2017-07-25 2017-07-25 Outpatient Beth, MG MG [id number] 13:15:00 23:59:59 Mar Jay Jay Garciazoila 2017-07-25 2017-07-25 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 [id number] Memoria 20:15:00 20:15:00 Pre-Reg r Radiology 46 gladys Vieira 2017-07-25 2017-07-25 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 [id number] Memoria 20:15:00 20:15:00 Pre-Reg r Radiology 46 gladys Santanaann 2017-07-25 2017-07-25 Outpatient MHIE MHIE [id number] Memoria 14:15:00 14:15:00 46 gladys Vieira 2017-07-25 2017-07-25 Outpatient MHIE MHIE [id number] Memoria 14:15:00 14:15:00 47 gladys SantanaEdwards 2017-07-25 2017-07-25 [facility] [id number] 14:15:00 14:15:00 NURSE STWH 47 XRAY 2017-07-25 2017-07-25 Outpatient MHIE MHIE [id number] Memoria 13:15:00 13:15:00 45 gladys Vieira 2017-06-28 2017-06-29 Outpatient nullFlavo MG Family 4 [id number] Memoria 16:00:00 05:59:59 r Medicine 45 gladys Pineda Edwards 2017-06-28 2017-06-29 Outpatient nullFlavo MG Family 4 [id number] Memoria 16:00:00 05:59:59 r Medicine 45 gladys Santanaann 2017-06-28 2017-06-29 Outpatient nullFlavo [facility] PUBLICIST 4 [id number] Memoria 15:00:00 05:59:59 r Edwin Alina Santanaann 2017-06-28 2017-06-29 Outpatient nullFlavo [facility] PUBLICIST 4 [id number] Memoria 15:00:00 05:59:59 r Edwin 20 gladys SantanaEdwards 2017-06-28 2017-06-28 Outpatient VISIT, MG [facility]MG [id number] 10:00:00 23:59:59 NURSE STWC 45 MAMMO 2017-06-28 2017-06-28 Outpatient Sangalli, MHMG MHMG [id number] 09:00:00 23:59:59 Brendon Mckeon 21 2017-06-28 2017-06-28 Outpatient Sangalli, MHMG [facility] [id number] 09:00:00 23:59:59 Brendon Mckeon 21 2017-06-28 2017-06-28 Outpatient Sangalli, MHMG [facility]MG [id number] 09:00:00 23:59:59 Brendon Mckeon 21 2017-06-28 2017-06-28 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 [facility] [id number] Memoria 16:00:00 16:00:00 Pre-Reg r Radiology 20 gladys Vieira 2017-06-28 2017-06-28 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 [facility] [id number] Memoria 16:00:00 16:00:00 Pre-Reg r Radiology 20 l Edwin Vieira 2017-06-28 2017-06-28 Outpatient MHIE MHIE [id number] Memoria 10:00:00 10:00:00 20 gladys Vieira 2017-06-28 2017-06-28 Outpatient MHIE MHIE [id number] Memoria 10:00:00 10:00:00 44 gladys Vieira 2017-06-28 2017-06-28 Outpatient VISIT, MHMG MHMG [id number] 10:00:00 10:00:00 [facility]WC [facility] 2017-06-28 2017-06-28 Outpatient VISIT, MHMG MHMG [id number] 10:00:00 10:00:00 N[facility]SE STWC 20 [facility] 2017-06-28 2017-06-28 Outpatient VISIT, MHMG MHMG [id number] 10:00:00 10:00:00 [facility]SE STWC [facility] 2017-06-28 2017-06-28 Outpatient MHIE MHIE [id number] Memoria 09:00:00 09:00:00 20 gladys Vieira 2017-06-21 2017-06-23 Phone nullFlavo [facility]MG [id number] Memoria 19:39:00 05:59:59 Message r Cardiology 09 gladys Vieira 2017-06-21 2017-06-23 Phone nullFlavo MHMG [id number] Memoria 19:39:00 05:59:59 Message r Cardiology 09 gladys Vieira 2017-06-21 2017-06-22 Outpatient MHMG MHMG [id number] 13:39:00 23:59:59 09 2017-06-14 2017-06-16 Phone nullFlavo [facility] Family [id number] Memoria 14:53:00 05:59:59 Message r Medicine 08 gladys Vieira 2017-06-14 2017-06-16 Phone nullFlavo [facility] Family [id number] Memoria 14:53:00 05:59:59 Message r Medicine 08 gladys Vieira 2017-06-14 2017-06-15 Outpatient MHMG MHMG [id number] 08:53:00 23:59:59 08 2017-06-14 2017-06-15 Outpatient nullFlavo [facility] Family 4 [id number] Memoria 14:15:00 05:59:59 r Medicine 42 gladys Vieira 2017-06-14 2017-06-15 Outpatient nullFlavo [facility] Family 4 [id number] Memoria 14:15:00 05:59:59 r Medicine 42 gladys Vieira 2017-06-14 2017-06-14 Outpatient Espinoza, MG [facility] [id number] 08:15:00 23:59:59 Luca 42 2017-06-14 2017-06-14 Outpatient MHIE MHIE [id number] Memoria 08:15:00 08:15:00 41 gladys Vieira 2017-04-27 2017-04-28 Outpatient nullFlavo [facility] Family 4 [id number] Memoria 15:15:00 05:59:59 r Medicine 18 gladys Vieira 2017-04-27 2017-04-28 Outpatient nullFlavo [facility] Family 4 [id number] Memoria 15:15:00 05:59:59 r Medicine 18 gladys Vieira 2017-04-27 2017-04-27 Outpatient Abraham [facility] MHMG [id number] 09:15:00 23:59:59 Onofre Bonner 18 2017-04-27 2017-04-27 Outpatient MHIE MHIE [id number] Memoria 09:15:00 09:15:00 18 gladys Dariel 2017-03-21 2017-03-21 Outpatient MHIE MHIE [id number] Memoria 09:15:00 09:15:00 32 gladys Dariel 2017-03-21 2017-03-21 Outpatient MHIE MHIE [id number] Memoria 09:15:00 09:15:00 32 gladys Edwards 2017-03-14 2017-03-14 Outpatient MHIE MHIE [id number] Memoria 08:45:00 08:45:00 38 gladys Dariel 2017-03-14 2017-03-14 Outpatient MHIE MHIE [id number] Memoria 08:45:00 08:45:00 38 gladys Vieira 2017-03-14 2017-03-14 Outpatient MHIE MHIE [id number] Memoria 08:30:00 08:30:00 39 gladys Dariel 2017-03-14 2017-03-14 Outpatient MHIE MHIE [id number] Memoria 08:30:00 08:30:00 38 gladys Edwards 2017-03-14 2017-03-14 Outpatient MHIE MHIE [id number] Memoria 08:00:00 08:00:00 37 gladys Dariel 2017-03-14 2017-03-14 Outpatient MHIE MHIE [id number] Memoria 08:00:00 08:00:00 37 gladys Dariel 2017-02-05 2017-02-05 Outpatient MHIE MHIE [id number] Memoria 09:30:00 09:30:00 31 gladys Dariel 2017-02-05 2017-02-05 Outpatient MHIE MHIE [id number] Memoria 09:30:00 09:30:00 31 gladys Dariel 2017-01-24 2017-01-24 Outpatient MHIE MHIE [id number] Memoria 14:30:00 14:30:00 36 gladys Dariel 2017-01-24 2017-01-24 Outpatient MHIE MHIE [id number] Memoria 14:30:00 14:30:00 36 gladys Dariel 2016-12-19 2016-12-19 Outpatient MHIE MHIE [id number] Memoria 13:30:00 13:30:00 34 gladys Dariel 2016-12-19 2016-12-19 Outpatient MHIE MHIE [id number] Memoria 13:30:00 13:30:00 33 gladys Vieira 2016-11-28 2016-11-28 Outpatient MHIE MHIE [id number] Memoria 12:00:00 12:00:00 31 l Dariel 2016-11-28 2016-11-28 Outpatient MHIE MHIE [id number] Memoria 12:00:00 12:00:00 31 gladys Vieira 2016-09-15 2016-09-15 Outpatient MHIE MHIE [id number] Memoria 09:45:00 09:45:00 17 gladys Vieira 2016-09-15 2016-09-15 Outpatient MHIE MHIE [id number] Memoria 09:45:00 09:45:00 17 gladys Vieira 2016-08-07 2016-08-07 Outpatient MHIE MHIE [id number] Memoria 09:45:00 09:45:00 25 gladys Vieira 2016-08-07 2016-08-07 Outpatient MHIE MHIE [id number] Memoria 09:45:00 09:45:00 25 gladys Vieira 2016-08-03 2016-08-03 Outpatient MHIE MHIE [id number] Memoria 15:00:00 15:00:00 28 gladys SantanaDariel 2016-08-03 2016-08-03 Outpatient MHIE MHIE [id number] Memoria 15:00:00 15:00:00 28 gladys Edwards 2016-07-25 2016-07-25 Outpatient MHIE MHIE [id number] Memoria 15:00:00 15:00:00 30 gladys Edwards 2016-07-25 2016-07-25 Outpatient MHIE MHIE [id number] Memoria 15:00:00 15:00:00 30 gladys Edwards 2016-07-24 2016-07-24 Outpatient MHIE MHIE [id number] Memoria 15:00:00 15:00:00 29 gladys Edwards 2016-07-24 2016-07-24 Outpatient MHIE MHIE [id number] Memoria 15:00:00 15:00:00 29 gladys Vieira 2016-07-21 2016-07-[place] [id number] Memoria 20:03:00 05:59:00 Services r Outpatient 01 l Imaging Dariel Hettinger 2016-07-21 2016-07-22 [place] [id number] Memoria 20:03:00 05:59:00 Services r Outpatient 01 l Imaging Dariel Hettinger 2016-07-21 2016-07-21 Outpatient JOHN Leiva MH29 [id number] 14:03:00 23:59:00 Abdifatah Hira 2016-07-10 2016-07-10 Outpatient MHIE MHIE [id number] Memoria 13:30:00 13:30:00 25 gladys SantanaEdwards 2016-07-10 2016-07-10 Outpatient MHIE MHIE [id number] Memoria 13:30:00 13:30:00 25 gladys Dariel 2016-07-10 2016-07-10 Outpatient MHIE MHIE [id number] Memoria 09:45:00 09:45:00 23 gladys Edwards 2016-07-10 2016-07-10 Outpatient MHIE MHIE [id number] Memoria 09:45:00 09:45:00 23 gladys Edwards 2016-07-07 2016-07-08 Outpt Diag nullFlavo [facility] [id number] Memoria 16:35:00 05:59:00 Services r Outpatient 00 l Imaging Pockee Hettinger 2016-07-07 2016-07-08 Outpt Diag nullFlavo [facility] [id number] Memoria 16:35:00 05:59:00 Services r Outpatient 00 l Imaging Pockee Hettinger 2016-07-07 2016-07-07 Outpatient NICOLE Leiva29 [id number] 10:35:00 23:59:00 Abdifatah Coronado Hira 2016-07-03 2016-07-03 Outpatient MHIE MHIE [id number] Memoria 09:00:00 09:00:00 23 gladys Vieira 2016-07-03 2016-07-03 Outpatient MHIE MHIE [id number] Memoria 09:00:00 09:00:00 23 gladys Edwards 2016-07-03 2016-07-03 Outpatient MHIE MHIE [id number] Memoria 08:45:00 08:45:00 22 gladys Vieira 2016-07-03 2016-07-03 Outpatient MHIE MHIE [id number] Memoria 08:45:00 08:45:00 22 glayds Vieira 2016-06-22 2016-06-22 Outpatient MHIE MHIE [id number] Memoria 10:30:00 10:30:00 07 gladys Vieira 2016-06-22 2016-06-22 Outpatient MHIE MHIE [id number] Memoria 10:30:00 10:30:00 07 gladys Dariel 2016-05-18 2016-05-18 Outpatient MHIE MHIE [id number] Memoria 09:45:00 09:45:00 19 gladys Vieira 2016-05-18 2016-05-18 Outpatient MHIE MHIE [id number] Memoria 09:45:00 09:45:00 19 gladys Dariel 2016-04-28 2016-04-28 Outpatient MHIE MHIE [id number] Memoria 10:00:00 10:00:00 15 gladys Vieira 2016-04-28 2016-04-28 Outpatient MHIE MHIE [id number] Memoria 10:00:00 10:00:00 15 gladys Vieira 2016-04-21 2016-04-21 Outpatient MHIE MHIE [id number] Memoria 14:30:00 14:30:00 05 gladys Vieira 2016-04-21 2016-04-21 Outpatient MHIE MHIE [id number] Memoria 14:30:00 14:30:00 05 gladys Vieira 2016-03-17 2016-03-17 Outpatient MHIE MHIE [id number] Memoria 09:45:00 09:45:00 13 gladys Vieira 2016-03-17 2016-03-17 Outpatient MHIE MHIE [id number] Memoria 09:45:00 09:45:00 13 gladys Vieira 2016-02-25 2016-02-25 Outpatient MHIE MHIE [id number] Memoria 08:30:00 08:30:00 16 gladys Vieira 2016-02-25 2016-02-25 Outpatient MHIE MHIE [id number] Memoria 08:30:00 08:30:00 16 gladys Vieira 2016-02-07 2016-02-07 Outpatient MHIE MHIE [id number] Memoria 10:15:00 10:15:00 14 gladys Vieira 2016-02-07 2016-02-07 Outpatient MHIE MHIE [id number] Memoria 10:15:00 10:15:00 14 gladys Vieira 2015-09-16 2015-09-16 Outpatient MHIE MHIE [id number] Memoria 09:45:00 09:45:00 04 gladys Vieira 2015-09-16 2015-09-16 Outpatient MHIE MHIE [id number] Memoria 09:45:00 09:45:00 04 gladys Vieira 2015-08-03 2015-08-03 Outpatient MHIE MHIE [id number] Memoria 11:00:00 11:00:00 12 gladys Vieira 2015-08-03 2015-08-03 Outpatient MHIE MHIE [id number] Memoria 11:00:00 11:00:00 11 gladys Dariel 2015-08-03 2015-08-03 Outpatient MHIE MHIE [id number] Memoria 11:00:00 11:00:00 11 gladys Vieira 2015-08-03 2015-08-03 Outpatient MHIE MHIE [id number] Memoria 11:00:00 11:00:00 12 gladys Vieira 2015-08-02 2015-08-02 Outpatient MHIE MHIE [id number] Memoria 16:15:00 16:15:00 10 gladys Vieira 2015-08-02 2015-08-02 Outpatient MHIE MHIE [id number] Memoria 16:15:00 16:15:00 10 gladys Vieira 2015-07-15 2015-07-15 Outpatient MHIE MHIE [id number] Memoria 13:45:00 13:45:00 09 gladys Vieira 2015-07-15 2015-07-15 Outpatient MHIE MHIE [id number] Memoria 13:45:00 13:45:00 09 galdys Vieira 2015-06-23 2015-06-23 Outpatient MHIE MHIE [id number] Memoria 09:30:00 09:30:00 08 gladys Vieira 2015-06-23 2015-06-23 Outpatient MHIE MHIE [id number] Memoria 09:30:00 09:30:00 08 gladys Vieira 2015-06-17 2015-06-17 Outpatient MHIE MHIE [id number] Memoria 10:00:00 10:00:00 03 gladys Vieira 2015-06-17 2015-06-17 Outpatient MHIE MHIE [id number] Memoria 10:00:00 10:00:00 06 gladys Vieira 2015-06-17 2015-06-17 Outpatient MHIE MHIE [id number] Memoria 10:00:00 10:00:00 03 gladys Vieira 2015-06-17 2015-06-17 Outpatient MHIE MHIE [id number] Memoria 10:00:00 10:00:00 06 gladys Vieira 2015-06-17 2015-06-17 Outpatient MHIE MHIE [id number] Memoria 09:45:00 09:45:00 00 l Dariel 2015-06-17 2015-06-17 Outpatient SAGAR KEITH [id number] Memoria 09:45:00 09:45:00 00 l Dariel 2015-04-21 2015-04-21 Outpatient SAGAR KEITH [id number] Memoria 14:45:00 14:45:00 01 l Dariel 2015-04-21 2015-04-21 Outpatient SAGAR KEITH [id number] Memoria 14:45:00 14:45:00 01 l Dariel 2015-03-17 2015-03-17 Outpatient SAGAR KEITH [id number] Memoria 14:00:00 14:00:00 02 gladys Edwards 2015-03-17 2015-03-17 Outpatient SAGAR KEITH [id number] Memoria 14:00:00 14:00:00 02 gladys Vieira [...] code = 994) seen FUNGUS CULTURE + [id number] 16:29:00 Test Item Value Reference Range Interpretation Comments CULTURE (BEAKER) (test No fungus isolated in code = 1095) 28 days FUNGUS SMEAR (BEAKER) No fungi seen (test code = 1406) FUNGUS CULTURE + [id number] 16:29:00 Test Item Value Reference Range Interpretation Comments CULTURE (BEAKER) (test No fungus isolated in code = 1095) 28 days FUNGUS SMEAR (BEAKER) No fungi seen (test code = 1406) FUNGUS CULTURE + [id number] 16:29:00 Test Item Value Reference Range Interpretation Comments CULTURE (BEAKER) (test No fungus isolated in code = 1095) 28 days FUNGUS SMEAR (BEAKER) No fungi seen (test code = 1406) ANAEROBIC [id number] 19:02:00 Test Item Value Reference Range Interpretation Comments CULTURE (BEAKER) (test No anaerobes isolated code = 1095) ANAEROBIC [id number] 18:50:00 Test Item Value Reference Range Interpretation Comments CULTURE (BEAKER) (test No anaerobes isolated code = 1095) ANAEROBIC [id number] 18:49:00 Test Item Value Reference Range Interpretation Comments CULTURE (BEAKER) (test No anaerobes isolated code = 1095) SURGICALLY OBTAINED CULTURE + GRAM [id number] 12:55:00 Test Item Value Reference Range Interpretation Comments CULTURE (BEAKER) (test code No growth = 1095) GRAM STAIN RESULT (BEAKER) No WBCs (test code = 1123) GRAM STAIN RESULT (BEAKER) No organisms seen (test code = 17875) SURGICALLY OBTAINED CULTURE + GRAM [id number] 12:54:00 Test Item Value Reference Range Interpretation Comments CULTURE (BEAKER) (test code No growth = 1095) GRAM STAIN RESULT (BEAKER) 1+ WBCs (test code = 1123) GRAM STAIN RESULT (BEAKER) No organisms seen (test code = 11703) SURGICALLY OBTAINED CULTURE + GRAM [id number] 12:53:00 Test Item Value Reference Range Interpretation Comments CULTURE (BEAKER) (test code No growth = 1095) GRAM STAIN RESULT (BEAKER) 1+ WBCs (test code = 1123) GRAM STAIN RESULT (BEAKER) No organisms seen (test code = 10307) TISSUE [id number] 12:16:00Surgical Pathology Report Case: [id number] Authorizing Provider: Darrick Vick Collected: 01/14/2020 11:55 AM Jovi Martinez MD Ordering Location: [facility] [place] Received: 01/14/2020 04:17 PM [facility] Pathologist: Kenia Chaney MD Specimen: Explant, RIGHT KNEE TOTAL REVISION A. HARDWARE, REMOVAL, GROSS EXAMINATION ONLY: - HARDWARE IDENTIFIED (SEE GROSS DESCRIPTION). Signing Pathologist Direct Phone Line: [phone] signed by Kenia Chaney MD on 01/15/2020 at 12:16 PM88 300Preop diagnosis: Mechanical loosening of internal left knee prosthetic joint, initial encounter. ExplantReceived fresh labeled with the patient's name, accession number and "right knee total revision" are three pieces of metallic alcantara to alcantara-white orthopedic hardware ranging from 6.4 to 6.5 cm in greatest dimension. The following inscription is identified: [id number] SZ2STB 2.5 PE 10 [id number] gross photograph is taken. No sections are submitted. This case is for gross examination only. PA/pl [facility], Department of Pathology, [address] [place] [address], [facility], [facility], [address] [place], [place] [id number], [facility], Department of Path[facility], [address] [place] [id number], YFVXW METABOLIC [id number] 05:02:00 Test Item Value Reference Range Interpretation [...] PATIEN TS. CBC W/PLT COUNT & AUTO [id number] 04:49:00 Test Item Value Reference Range Interpretation [...] PERCENT (BEAKER) (test code = 2801) SPIN/CONCENTRATION [id number] 01:24:00 Test Item Value Reference Range Interpretation Comments CONCENTRATION CHARGED (BEAKER) (test Done code = 2657) RAD, KNEE, 1 OR 2 VIEWS, [id number] 17:25:00AP and lateral views of the prosthetic [...] Verified Date/Time: 01/14/2020 17:25:10 Reading Location: [facility] ReadingRoom [address] [place] [address] Notes Date/Time Note Provider Source 2020-01-[address] 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 POSTOPERATIVE DIAGNOSIS: Aseptic loosening of ri ght total knee arthroplasty. PROCEDURE: Revision of both components of right total knee arthroplasty, CPT code 35402. ASSISTANTS: 1. Jorge Hanna. 2. Lior Liu [...] femoral canal was opened using a starter marline ll, flexion and reamed up for 15 [...] The patient t olerated this procedure well. JENAE/MODL /[id number] 2019-06-17 PROCEDURE INFORMATION: [facility] 14:46:00-00:00 Exam: XR Abdomen, 2 Views Exam [...] material. Murali Rojas MD On 06/17/2019 15:17:09; KARYN [id number] 2019-06-17 PROCEDURE INFORMATION: [facility] 14:46:00-00:00 Exam: XR Chest, 2 Views Exam [...] abnormalities. Jer Quinteros MD On 06/17/2019 15:16:25; Remberto [id number] 2019-06-17 PROCEDURE INFORMATION: [facility] 14:46:00-00:00 Exam: XR Abdomen, 2 Views Exam [...] material. Murali Rojas MD On 06/17/2019 15:17:09; ALLEN-Jeni [id number] 2019-06-17 PROCEDURE INFORMATION: [facility] 14:46:00-00:00 Exam: XR Chest, 2 Views Exam [...] Jer Quinteros MD On 06/17/2019 15:16:25; V [id number] 2018-07-11 [facility] [place] 08:50:00-00:00 UNILATERAL RIGHT DIGITAL DIAGNOSTIC MAMMOGRAM 3D /2D WITH CAD: 07/11/2018 CLINICAL: /R92.8 Other Abnor mal And Inconclusive Findings On Diagnostic Imaging Of Breast. Current study was evaluated with a Manager Project d Detection (CAD) system. COMPARISON:Comparison is mad e to exams dated: 07/08/2018 mammogram, 06/28/2017 mammogram, 06/22/2016 mammogram, 06/17/2015 mammogram, 06/15/2014 mammogram, and 02/17/2013 mammogram - [facility]. TECHNIQUE: Digital Breast To mosynthesis [...] recommended. (07/12/2019) This exam was interpreted at [id number] at [facility]. Professional services are pr ovided by the [facility] Division of Diagnostic Imaging. Brandon Browne M.D. lr/:07/11/2018 09:28:13 Wind Commissioning Technician(s): Arti Collado, [facility] letter sent: BI-RADS 1/2 Mammogram BI-RADS: 1 Negative 2018-07-11 [place] 08:50:00-00:00 UNILATERAL RIGHT DIGITAL DIAGNOSTIC MAMMOGRAM 3D /2D WITH CAD: 07/11/2018 CLINICAL: /R92.8 Other Abnor mal And Inconclusive Findings On Diagnostic Imaging Of Breast. Current study was evaluated with a Manager Project d Detection (CAD) system. COMPARISON:Comparison is mad e to exams dated: 07/08/2018 mammogram, 06/28/2017 mammogram, 06/22/2016 mammogram, 06/17/2015 mammogram, 06/15/2014 mammogram, and 02/17/2013 mammogram - [facility]. TECHNIQUE: Digital Breast To mosynthesis [...] recommended. (07/12/2019) This exam was interpreted at [id number] at [facility]. Professional services are pr ovided by the [facility] Division of Diagnostic Imaging. Brandon Browne M.D. lr/:07/11/2018 09:28:13 Wind Commissioning Technician(s): Arti Collado [facility] letter sent: BI-RADS 1/2 Mammogram BI-RADS: 1 Negative 2018-07-09 PROCEDURE: DEXA BONE DENSITY STUDY. [facility] 10:49:00-00:00 INDICATION: Osteoporosis. COMPARISONS: 06/23/2015 TECHNIQUE: Lumbar spine and hip bone mineral densities were measured using a [employer] A dual x-ray absorptiometry system. FINDINGS: [...] of age in the femoral neck.) SL: [id number] 2018-07-09 PROCEDURE: DEXA BONE DENSITY STUDY. [facility] 10:49:00-00:00 INDICATION: Osteoporosis. COMPARISONS: 06/23/2015 TECHNIQUE: Lumbar [...] of age in the femoral neck.) SL: [id number] 2018-07-08 [facility] 09:40:00-00:00 BILATERAL DIGITAL SCREENING MAMMOGRAM WITH CAD: 07/08/2018 CLINICAL: Screening/Screening. Current study was evaluated with a Manager Project d Detection (CAD) system. COMPARISON:Comparison is mad e to exams dated: 06/28/2017 mammogram, 06/22/2016 mammogram, 06/17/2015 mammogram, 06/15/2014 mammogram, and 02/17/2013 mammogram - [facility]. TECHNIQUE: Mammographic view s were [...] are recommended. This exam was interpreted at [id number] for [facility]. Orion ronquillot/penrad:07/08/2018 10:20:45 Wind Commissioning Technician(s): Angela Birmingham, [facility] letter sent: BI-RADS 0 Mammogram BI-RADS: 0 Indeterminate 2018-07-08 [facility] 09:40:00-00:00 BILATERAL DIGITAL SCREENING MAMMOGRAM WITH CAD: 07/08/2018 CLINICAL: Screening/Screening. Current study was evaluated with a Manager Project d Detection (CAD) system. COMPARISON:Comparison is mad e to exams dated: 06/28/2017 mammogram, 06/22/2016 mammogram, 06/17/2015 mammogram, 06/15/2014 mammogram, and 02/17/2013 mammogram - [facility]. TECHNIQUE: Mammographic view s were [...] are recommended. This exam was interpreted at [id number] for [facility]. Orion ronquillot/penrad:07/08/2018 10:20:45 Wind Commissioning Technician(s): Angela Birmingham, [facility] letter sent: BI-RADS 0 Mammogram BI-RADS: 0 Indeterminate 2017-07-25 Procedure: Lumbar Spine Radiographs. [facility] 14:11:44-00:00 Clinical Indication: Back pain, no known injury. Comparison: None. FINDINGS: The 3 views of the lumbar sp ine show degenerative change most pronounced at L4- L5 and L5-S1 including narrowing of the intervertebral disc spaces, marginal osteophyte formation and facet joint hypertrop hy. No acute displaced fract ure or spondylolisthesis is observed. Vascular calcifications are noted. IMPRESSION: 1. Degenerative change. [id number] 2017-07-25 Procedure: Lumbar Spine Radiographs. [facility] 14:11:44-00:00 Clinical Indication: Back pain, no known injury. Comparison: None. FINDINGS: The 3 views of the lumbar sp ine show degenerative change most pronounced at L4- L5 and L5-S1 including narrowing of the intervertebral disc spaces, marginal osteophyte formation and facet joint hypertrop hy. No acute displaced fract ure or spondylolisthesis is observed. Vascular calcifications are noted. IMPRESSION: 1. Degenerative change. [id number] 2017-07-25 Procedure. Cervical Spine Radiographs. [facility] 14:11:42-00:00 Clinical Indication: Neck pain, no known injury. Comparison: Radiograph of the cervical spine . FINDINGS: The 3 views of the cervical spine show degenerative change from C3 through C7 including narrowing of the intervertebral disc spaces, marginal osteophyte formation and facet joint hypertrophy. No acute displaced fracture or subluxation is observed. IMPRESSION: 1. Degenerative change. SL:[id number] 2017-07-25 Procedure. Cervical Spine Radiographs. [facility] 14::42-00:00 Clinical Indication: Neck pain, no known injury. Comparison: Radiograph of the cervical spine . FINDINGS: The 3 views of the cervical spine show degenerative change from C3 through C7 including narrowing of the intervertebral disc spaces, marginal osteophyte formation and facet joint hypertrophy. No acute displaced fracture or subluxation is observed. IMPRESSION: 1. Degenerative change. [id number] 2017-06-28 [facility] 10:08:21-00:00 BILATERAL DIGITAL SCREENING MAMMOGRAM WITH CAD: 06/28/2017 CLINICAL: Screening/Screening. Current study was evaluated with a Manager Project d Detection (CAD) system. COMPARISON:Comparison is mad e to exams dated: 06/22/2016 mammogram, 06/17/2015 mammogram, 06/15/2014 mammogram, and 02/17/2013 mammogram - [facility]. TECHNIQUE: Mammographic view s were [...] is recommended.(06/29/2018) This exam was interpreted at [id number] for [facility]. Orion aguirre/penrad:06/28/2017 14:01:38 Wind Commissioning Technician(s): Angela Birmingham, [facility] letter sent: BI-RADS 1/2 Mammogram BI-RADS: 2 Benign 2017-06-28 [facility] 10:08:21-00:00 BILATERAL DIGITAL SCREENING MAMMOGRAM WITH CAD: 06/28/2017 CLINICAL: Screening/Screening. Current study was evaluated with a Manager Project d Detection (CAD) system. COMPARISON:Comparison is mad e to exams dated: 06/22/2016 mammogram, 06/17/2015 mammogram, 06/15/2014 mammogram, and 02/17/2013 mammogram - [facility]. TECHNIQUE: Mammographic view s were [...] is recommended.(06/29/2018) This exam was interpreted at [id number] for [facility]. Orion aguirre/penrad:06/28/2017 14:01:38 Wind Commissioning Technician(s): Angela Birmingham, [facility] letter sent: BI-RADS 1/2 Mammogram BI-RADS: 2 Benign 2017-03-14 Clinical Indication: - headache; [facility] 08:55:13-00:00 Comparison: None FINDINGS: The 3 views [...] maxillary sinus. Air-fluid levels are identified.. SL: [id number] 2017-03-14 Clinical Indication: - headache; [facility] 08:55:13-00:00 Comparison: None FINDINGS: The 3 views [...] maxillary sinus. Air-fluid levels are identified.. SL: [id number] 2016-07-21 CLINICAL HISTORY : abnormal CT of the abd, lower lung ho , [facility] [place] 14:13:26-00:00 EXAM : CT chest without contrast 07/21/2016 2:00 PM [employer] COMPARISON : CT abdomen and pelvis with [...] be beneficial.. 2. Moderate coronary artery calcifications. 2016-07-21 CLINICAL HISTORY : abnormal CT of the abd, lower lung ho , [facility] [place] 14:13:26-00:00 EXAM : CT chest without contrast 07/21/2016 2:00 PM [employer] COMPARISON : CT abdomen and pelvis with [...] pelvis with and without co ntrast. [facility] [place] 11:42:22-00:00 COMPARISON: None. HISTORY: RLQ pain. TECHNIQUE: [...] diverticulosis without diverticulitis. Cholelithiasis without acute cholecystitis. 2016-07-07 STUDY: CT abdomen and pelvis with and without co ntrast. [facility] [place] 11:42:22-00:00 COMPARISON: None. HISTORY: RLQ pain. TECHNIQUE: [...] EXAM: Abdomen one view 07/03/2016 9:46 AM [facility] 09:20:36-00:00 HISTORY: 75 years Female right upper quadrant ab dominal pain COMPARISON: None available. FINDINGS: There is a nonobst ructive bowel gas pattern, with mild colonic stool. Probable vascular calcifications are noted in the pelvis. No evidence of mass effect or organomegaly. There is moderate lo wer lumbar degenerative change. No acute bony ab normalities are seen. IMPRESSION: 1. Nonobstructive bowel gas pattern. 2016-07-03 EXAM: Abdomen one view 07/03/2016 9:46 AM [facility] 09:20:36-00:00 HISTORY: 75 years Female right upper [...] pattern. 2016-06-22 - DIGITAL MAMMO SCREENING PANCHO [facility] 10:25:17-00:00 BILATERAL DIGITAL SCREENING MAMMOGRAM WITH CAD: 06/22/2016 CLINICAL: Screening. Current study was evaluated with a Manager Project d Detection (CAD) system. Comparison is made to exams dated: 06/15/2014 mammogram and 06/17/2015 mammogram - [facility]. There are scattered fibroglandular densities in both breasts. There are benign calcifications in the right annamaria ast. No significant masses, calci fications, or other findings are seen in either breast. There has been no significant interval change. IMPRESSION: BENIGN There is no mammographic sandra dence of malignancy. A 1 year screening mammogram is recommended. Apolinar sam/penrad:07/11/2016 13:14:10 Wind Commissioning Technician: Lanette Birmingham, [facility] This exam was dictated and i nterpreted by [id number] [facility]. letter sent: Normal exam Mammogram BI-RADS: 2 Benign 2016-06-22 - DIGITAL MAMMO SCREENING PANCHO [facility] 10:25:17-00:00 BILATERAL DIGITAL SCREENING MAMMOGRAM WITH CAD: 06/22/2016 CLINICAL: Screening. Current study was evaluated with a Manager Project d Detection (CAD) system. Comparison is made to exams dated: 06/15/2014 mammogram and 06/17/2015 mammogram - [facility]. There are scattered fibroglandular densities in both breasts. There are benign calcifications in the right annamaria ast. No significant masses, calci fications, or other findings are seen in either breast. There has been no significant interval change. IMPRESSION: BENIGN There is no mammographic sandra dence of malignancy. A 1 year screening mammogram is recommended. Apolinar Gonzáles M.D. [facility]/penrad:07/11/2016 13:14:10 Wind Commissioning Technician: Lanette Birmingham, [facility] This exam was dictated and i nterpreted by [id number] [facility]. letter sent: Normal exam Mammogram BI-RADS: 2 Benign 2015-08-03 Exam: Cervical spine x-ray, 5 views [facility] 11:01:04-00:00 Reason for Exam: NECK PAIN Comparison [...] within the mid and lower cervical spine. 2015-08-03 Exam: Cervical spine x-ray, 5 views [facility] 11:01:04-00:00 Reason for Exam: NECK PAIN Comparison [...] 2015-06-23 - Bone Density D[employer] [facility] 09:42:20-00:00 BONE DENSITY EVALUATION: 06/23/2015 COMPARISON: 02/04/2013 Left femur neck u sing a Hologic unit from [facility] with reported normal fracture risk, BMD of 0.813g/cm2 and T-score of -1.00. 02/04/2013 AP L1-L4 region o f spine using a Hologic unit from [facility] with reported normal fracture risk, [...] The T-score is -0.60. This matches the [facility]'s crit eria for normal bone density and places the patient within normal limits of fracture risk. IMPRESSION: OSTEOPENIA Patient is at medium risk for fracture. This exam was dictated and i nterpreted by [id number] for [facility]. Kimo rose/lacie:06/24/2015 15:24:43 Wind Commissioning Technician: Pham Tinoco, [facility] 2015-06-23 - Bone Density [employer] [facility] 09:42:20-00:00 BONE DENSITY EVALUATION: 06/23/2015 COMPARISON: 02/04/2013 Left femur neck u sing a Hologic unit from [facility] with reported normal fracture risk, BMD of 0.813g/cm2 and T-score of -1.00. 02/04/2013 AP L1-L4 region o f spine using a Hologic unit from [facility] with reported normal fracture risk, [...] The T-score is -0.60. This matches the [facility]'s crit eria for normal bone density and places the patient within normal limits of fracture risk. IMPRESSION: OSTEOPENIA Patient is at medium risk for fracture. This exam was dictated and i nterpreted by [id number] for [facility]. Kimo rose/lacie:06/24/2015 15:24:43 Wind Commissioning Technician: Pham Tinoco, [facility] 2015-06-17 - DIGITAL MAMMO SCREENING PANCHO [facility] 10:07:15-00:00 BILATERAL DIGITAL SCREENING MAMMOGRAM WITH CAD: 06/17/2015 CLINICAL: Screening. Current study was evaluated with a Manager Project d Detection (CAD) system. Comparison is made to exams dated: 06/15/2014 mammogram and 02/17/2013 mammogram - [facility]. The tissue of both breasts i s heterogeneously dense, which could obscure detection of small masses. No significant masses, calci fications, or other findings are seen in either breast. There has been no significant interval change. IMPRESSION: NEGATIVE There is no mammographic sandra dence of malignancy. A 1 year screening mammogram is recommended. Kimo rose/penrad:06/17/2015 13:47:44 Wind Commissioning Technician: Pham Tinoco, [facility] This exam was dictated and i nterpreted by [id number] [facility]. letter sent: Normal exam Mammogram BI-RADS: 1 Negative 2015-06-17 - DIGITAL MAMMO SCREENING [facility] 10:07:15-00:00 BILATERAL DIGITAL SCREENING MAMMOGRAM WITH CAD: 06/17/2015 CLINICAL: Screening. Current study was evaluated with a Manager Project d Detection (CAD) system. Comparison is made to exams dated: 06/15/2014 mammogram and 02/17/2013 mammogram - [facility]. The tissue of both breasts i s heterogeneously dense, which could obscure detection of small masses. No significant masses, calci fications, or other findings are seen in either breast. There has been no significant interval change. IMPRESSION: NEGATIVE There is no mammographic sandra dence of malignancy. A 1 year screening mammogram is recommended. Kimo rose/penrad:06/17/2015 13:47:44 Wind Commissioning Technician: Pham Tinoco, [facility] This exam was dictated and i nterpreted by [id number] [facility]. letter sent: Normal exam Mammogram BI-RADS: 1 Negative
[2023-01-09] MEDS ORDERED: NA CHLORIDE 0.9% 500 ML ONE (10:10)
[2023-01-09 10:23] LABS: Hematocrit 33.4 % (36.0-45.0); Lymphocytes % 27.4 % (15.3-44.8); MCV 89.2 fL (80-100); MPV 8.4 fL (7.6-11.3); RBC Red Blood Cell Count 3.75 M/uL (3.86-4.86)
[2023-01-09 10:39] LABS: Albumin 3.8 g/dL (3.4-5.0); Bilirubin Total 0.4 mg/dL (0.2-1.0)
--- NOTE | 2023-01-09 11:28 | RAD REPORT ---
EXAM DESCRIPTION: CTAbdomen Pelvis W Contrast - 01/09/2023 11:13 am CLINICAL HISTORY: Abdominal pain. left flank/LLQ pain COMPARISON: Abdomen Pelvis W Contrast dated 02/22/2019; CT ABD PELVIS W CONTRAST dated 08/18/2014 TECHNIQUE: Biphasic CT imaging of the abdomen and pelvis was performed with 100 ml non-ionic IV cont rast. All CT scans are performed using dose optimization technique as appropriate and may include automated exposure control or mA/KV adjustment according to patient size. FINDINGS: The lung bases are clear. Several small liver cysts are present. Intermediate density 17 mm lesion medial right lobe of liver p robably benign. Cholelithiasis. The spleen, adrenal glands and kidneys are within normal limits. Aort ic atherosclerosis. No bowel obstruction, free air, free fluid or abscess. Sigmoid diverticulosis coli without diverticul itis. Moderate stool present throughout the colon. Nonvisualized appendix. No evidence of significan t lymphadenopathy. Moderate lumbar degenerative changes. IMPRESSION: Significant sigmoid colon diverticulosis coli is present without findings suggesting acu te diverticulitis. Moderate stool retention also present. Cholelithiasis. Significant degenerative changes lumbar spine
[2023-01-09 11:47] LABS: Specific Gravity 1.007 (1.005-1.030); Urine Bilirubin NEGATIVE (Negative); Urine Blood Negative (Negative); Urine Clarity Clear (Clear); Urine Color Colorless (Yellow); Urine Glucose NEGATIVE (Negative); Urine Protein NEGATIVE (Negative); Urine Urobilinogen Normal (Normal)
--- NOTE | 2023-01-09 11:55 | ER ---
Nurse's Notes [facility] Name: Bo Boudreaux Age: 82 yrs Sex: Female : 1940 Arrival Date: 01/09/2023 Time: 09:33 Bed 8 Private MD: Diagnosis: Abdominal pain, unspecified;Constipation, unspecified Presentation: 01/09 09:49 Chief complaint: Patient states: left side pain X 2 days. hx of diverticulitis, denies iw n/v/d, denies urinary s/s , hurts more when she moves, last BM was yesterday and was regular but she did give herself an enema to see if that helped the pain. Coronavirus screen: At this time, the client does not indicate any symptoms associated with coronavirus-19. Ebola Screen: Patient negative for fever greater than or equal to 101.5 degrees Fahrenheit, and additional compatible Ebola Virus Disease symptoms Patient denies exposure to infectious person. Patient denies travel to an Ebola-affected area in the 21 days before illness onset. No symptoms or risks identified at this time. Initial Sepsis Screen: Does the patient meet any 2 criteria? No. Patient's initial sepsis screen is negative. Does the patient have a suspected source of infection? No. Patient's initial sepsis screen is negative. Risk Assessment: Do you want to hurt yourself or someone else? Patient reports no desire to harm self or others. Onset of symptoms was January 07, 2023. 09:49 Method Of Arrival: Ambulatory iw 09:49 Acuity: JORJE 3 iw Historical: - Allergies: 09:51 PENICILLINS; iw - Home Meds: 09:51 montelukast 10 mg oral tablet daily [Active]; spironolacton-hydrochlorothiaz 25-25 mg iw Oral tablet 2 times per day [Active]; amlodipine 5 mg tablet daily [Active]; atorvastatin 20 mg oral tablet daily [Active]; calcium carbonate 600 mg calcium (1,500 mg) Oral tablet every other day [Active]; Vitamin D Oral twice a day [Active]; Metamucil Smooth Texture Oral daily [Active]; aspirin 81 mg Oral capsule daily [Active]; Cosamin ASU (with AKBA) 500 mg-116.7 mg-133.3 mg oral capsule [Active]; famotidine 20 mg Oral tablet every 12 hours [Active]; - PMHx: 09:51 Hyperlipidemia; Hypertension; iw - Immunization history:: Client reports receiving the 1st dose of the Covid vaccine. - Social history:: Smoking status: Patient denies any tobacco usage or history of. - Family history:: not pertinent. - Hospitalizations: : No recent hospitalization is reported. Screenin:11 [facility] ED Fall Risk Assessment (Adult) History of falling in the last 3 months, kc6 including since admission No falls in past 3 months (0 pts) Confusion or Disorientation No (0 pts) Intoxicated or Sedated No (0 pts) Impaired Gait No (0 pts) Mobility Assist Device Used No (0 pt) Altered Elimination No (0 pt) Score/Fall Risk Level 0 - 2 = Low Risk. Abuse screen: Denies threats or abuse. Denies injuries from another. Nutritional screening: No deficits noted. Tuberculosis screening: No symptoms or risk factors identified. Assessment: 10:29 General: Appears in no apparent distress. comfortable, Behavior is calm, cooperative, kc6 appropriate for age. Pain: Complains of pain in left upper quadrant and left lower quadrant. Neuro: Level of Consciousness is awake, alert, obeys commands, Oriented to person, place, time, situation, Appropriate for age. Cardiovascular: Capillary refill < 3 seconds. Respiratory: Airway is patent Trachea midline Respiratory effort is even, unlabored, Respiratory pattern is regular, symmetrical. GI: Abdomen is flat, non-distended, Bowel sounds present X 4 quads. Abd is soft X 4 quads Abdomen is tender to palpation in left upper quadrant and left lower quadrant Patient currently denies diarrhea, nausea, vomiting. : No signs and/or symptoms were reported regarding the genitourinary system. EENT: No signs and/or symptoms were reported regarding the EENT system. Derm: No signs and/or symptoms reported regarding the dermatologic system. Skin is intact, is healthy with good turgor, Skin is pink, warm \T\ dry. Musculoskeletal: No signs and/or symptoms reported regarding the musculoskeletal system. Circulation, motion, and sensation intact. Capillary refill < 3 seconds, Range of motion: intact in all extremities. 11:49 Reassessment: Patient appears in no apparent distress at this time. No changes from kc6 previously documented assessment. Patient and/or family updated on plan of care and expected duration. Pain level reassessed. Patient is alert, oriented x 3, equal unlabored respirations, skin warm/dry/pink. Vital Signs: 09:54 BP 114 / 83; Pulse 93; Resp 16; Temp 98.1; Pulse Ox 100% on R/A; Weight 74.84 kg; iw Height 5 ft. 5 in. ; Pain 6/10; 10:43 BP 123 / 77; Pulse 80; Resp 18 S; Pulse Ox 97% on R/A; kc6 11:49 BP 129 / 69; Pulse 81; Resp 17 S; Pulse Ox 100% on R/A; kc6 09:54 Body Mass Index 27.46 (74.84 kg, 165.1 cm) iw 09:54 Pain Scale: Adult iw ED Course: 09:36 Patient arrived in ED. im 09:37 Kem Barahona MD is Attending Physician. rn 09:42 Malinda Landon RN is Primary Nurse. kc6 09:51 Triage completed. iw 09:54 Arm band placed on. iw 09:59 Malinda Landon RN is Primary Nurse. kc6 10:11 Inserted saline lock: 22 gauge in left antecubital area, using aseptic technique. kc6 ,using aseptic technique. placed by Zeinab Malik RN Blood collected. 10:12 Patient has correct armband on for positive identification. Bed in low position. Call kc6 light in reach. Side rails up X2. Adult w/ patient. 11:15 CT Abd/Pelvis - IV Contrast Only In Process Unspecified. EDMS 12:40 No provider procedures requiring assistance completed. IV discontinued, intact, kc6 bleeding controlled, No redness/swelling at site. Pressure dressing applied. Administered Medications: 10:11 Drug: NS 0.9% IV 500 ml Route: IV; Rate: bolus; Site: left antecubital; kc6 12:40 Follow up: Response: No adverse reaction; IV Status: Completed infusion; IV Intake: kc6 500ml Medication: 12:41 VIS not applicable for this client. kc6 Intake: 12:40 IV: 500ml; Total: 500ml. kc6 Outcome: 11:54 Discharge ordered by . rn 12:40 Discharged to home ambulatory. kc6 12:40 Condition: stable 12:40 Discharge instructions given to patient, Instructed on discharge instructions, follow up and referral plans. Demonstrated understanding of instructions, follow-up care. 12:41 Patient left the ED. kc6 Signatures: Dispatcher [employer] Kerri Scott RN RN iw Nieto, Roman, MD MD rn Campbell, Kaitlyn, RN RN kc6 Mendoza, Itzel im
--- NOTE | 2023-01-09 11:55 | EDPHYS ---
Physician Documentation [facility] Name: Bo Boudreaux Age: 82 yrs Sex: Female : 1940 Arrival Date: 01/09/2023 Time: 09:33 Bed 8 Private MD: ED Physician Kem Barahona HPI: 01/09 09:51 This 82 yrs old Black Female presents to ER via Unassigned with complaints of Abdominal rn Pain. 09:51 The patient presents with abdominal pain in the left lower quadrant. rn 09:51 Onset: The symptoms/episode began/occurred 2 day(s) ago. The symptoms do not radiate. rn Associated signs and symptoms: Pertinent positives: constipation, Pertinent negatives: nausea and vomiting, blood in stools, chest pain, diarrhea, fever, hematuria, vomiting. The symptoms are described as achy. Modifying factors: The symptoms are alleviated by nothing, the symptoms are aggravated by movement. Severity of pain: At its worst the pain was mild in the emergency department the pain is unchanged. The patient has not experienced similar symptoms in the past. The patient has not recently seen a physician. Denies trauma, left flank/LLQ pain, for 2 days, no urinary symptoms, + constipation but enema did not help. . Historical: - Allergies: 09:51 PENICILLINS; iw - Home Meds: 09:51 montelukast 10 mg oral tablet daily [Active]; spironolacton-hydrochlorothiaz 25-25 mg iw Oral tablet 2 times per day [Active]; amlodipine 5 mg tablet daily [Active]; atorvastatin 20 mg oral tablet daily [Active]; calcium carbonate 600 mg calcium (1,500 mg) Oral tablet every other day [Active]; Vitamin D Oral twice a day [Active]; Metamucil Smooth Texture Oral daily [Active]; aspirin 81 mg Oral capsule daily [Active]; Cosamin ASU (with AKBA) 500 mg-116.7 mg-133.3 mg oral capsule [Active]; famotidine 20 mg Oral tablet every 12 hours [Active]; - PMHx: 09:51 Hyperlipidemia; Hypertension; iw - Immunization history:: Client reports receiving the 1st dose of the Covid vaccine. - Social history:: Smoking status: Patient denies any tobacco usage or history of. - Family history:: not pertinent. - Hospitalizations: : No recent hospitalization is reported. ROS: 09:51 Constitutional: Negative for fever, chills, and weight loss, Cardiovascular: Negative rn for chest pain, palpitations, and edema, Respiratory: Negative for shortness of breath, cough, wheezing, and pleuritic chest pain, Abdomen/GI: + left lower quadrant and left flank pain, + constipation Back: Negative for injury and pain, MS/Extremity: Negative for injury and deformity, Skin: Negative for injury, rash, and discoloration, Neuro: Negative for headache, weakness, numbness, tingling, and seizure. Exam: 09:51 Constitutional: This is a well developed, well nourished patient who is awake, alert, rn and in no acute distress. Ambulatory to room without difficulty or requiring assistance. Cardiovascular: Regular rate and rhythm. No pulse deficits. Respiratory: No increased work of breathing, no retractions or nasal flaring. Abdomen/GI: Soft, mild LLQ and left flank tenderness, no rebound, no guarding Back: No spinal tenderness. No costovertebral tenderness. Full range of motion. Skin: Warm, dry MS/ Extremity: Pulses equal, no cyanosis. Neuro: Awake and alert, GCS 15, oriented to person, place, time, and situation. Motor strength 5/5 in all extremities. Sensory grossly intact. Cerebellar exam normal. Normal gait. Vital Signs: 09:54 BP 114 / 83; Pulse 93; Resp 16; Temp 98.1; Pulse Ox 100% on R/A; Weight 74.84 kg; iw Height 5 ft. 5 in. ; Pain 6/10; 10:43 BP 123 / 77; Pulse 80; Resp 18 S; Pulse Ox 97% on R/A; kc6 11:49 BP 129 / 69; Pulse 81; Resp 17 S; Pulse Ox 100% on R/A; kc6 09:54 Body Mass Index 27.46 (74.84 kg, 165.1 cm) iw 09:54 Pain Scale: Adult iw MDM: 09:37 Patient medically screened. rn 11:53 Differential diagnosis: diverticulitis, non-specific abd pain, Pyelonephritis, rn Ureterolithiasis, urinary tract infection. Data reviewed: vital signs, nurses notes, lab test result(s), radiologic studies, CT scan, and as a result, I will discharge patient. Counseling: I had a detailed discussion with the patient and/or guardian regarding: the historical points, exam findings, and any diagnostic results supporting the discharge/admit diagnosis, lab results, radiology results, the need for outpatient follow up, to return to the emergency department if symptoms worsen or persist or if there are any questions or concerns that arise at home. Special discussion: Based on the patient's Hx, exam, and Dx evaluation, there is no indication for emergent surgery or inpatient Tx. It is understood by the patient/guardian that if the Sx's persist or worsen they need to return immediately for re-evaluation. I discussed with the patient/guardian in detail that at this point there is no indication for admission to the hospital. It is understood, however, that if the symptoms persist or worsen the patient needs to return immediately for re-evaluation. 01/09 09:50 Order name: CBC with Diff; Complete Time: 10:48 rn 01/09 09:50 Order name: CMP; Complete Time: 10:48 rn 01/09 09:50 Order name: Urinalysis w/ reflexes; Complete Time: 11:53 rn 01/09 09:50 Order name: CT Abd/Pelvis - IV Contrast Only; Complete Time: 11:29 rn 01/09 09:50 Order name: IV Saline Lock; Complete Time: 10:11 rn 01/09 09:50 Order name: Labs collected and sent; Complete Time: 10:11 rn Administered Medications: 10:11 Drug: NS 0.9% IV 500 ml Route: IV; Rate: bolus; Site: left antecubital; kc6 12:40 Follow up: Response: No adverse reaction; IV Status: Completed infusion; IV Intake: kc6 500ml Disposition Summary: 01/09/23 11:54 Discharge Ordered Location: Home rn Problem: new rn Symptoms: have improved rn Condition: Stable rn Diagnosis - Abdominal pain, unspecified rn - Constipation, unspecified rn Followup: rn - With: Private Physician - When: As needed - Reason: Recheck today's complaints, Re-evaluation by your physician Discharge Instructions: - Discharge Summary Sheet rn - Abdominal Pain, Adult rn - Constipation, Adult rn Forms: - Medication Reconciliation Form rn - Thank You Letter rn - Antibiotic rn case manager hospice - Prescription Opioid Use rn - Patient Portal Instructions rn Signatures: Dispatcher [employer] EDMS Salo, Kerri, RN RN iw Barahona, Kem, MD MD rn Landon, Malinda, RN RN kc6
[2023-01-09 13:15] VITALS: TEMP 98.1
[2023-01-09 13:19] VITALS: BP 129/69; O2SAT 100
== END 2023-01-09 12:41 | disposition home or self-care (01) ==
LOC: ER 09:33
DX: K59.00 Constipation, unspecified (principal); I10 Essential (primary) hypertension; Z88.0 Allergy status to penicillin
CPT/HCPCS: 85025; 36415; 81003; 80053; 74177; Q9967; J7040

== ENCOUNTER 2023-04-25 12:40 | Emergency (ER) | payer OTHER ==
--- OUTSIDE RECORDS SUMMARY | 2023-04-25 12:47 | XMS REPORT | Continuity of Care Document ---
:1940 Author Organization [facility] t Address [address] [facility] [place] [address] Care Team Providers Name Role Phone Bruce Sr Oscar Primary Care Physician DARRICK VICK Attending Clinician Unavailable [email or web address] Attending Clinician Unavailable Nurse, [facility] Attending Clinician Unavailable Only, Ang Db Test Attending Clinician Unavailable Bel Ramos MD Attending Clinician BEL RAMOS Attending Clinician Unavailable ALEK ZHU Attending Clinician Unavailable Nurse, Adc Pob Immunization Attending Clinician Unavailable Alek Zhu DO Attending Clinician Berny WRIGHT, Chantale Ackerman Attending Clinician Unavailable CARLO HERNANDEZ Attending Clinician Unavailable Doctor Unassigned, Emmet Attending Clinician Unavailable Mar Campos Attending Clinician Gladys Newman Attending Clinician Brendon Matthews Attending Clinician [facility] Attending Clinician Unavailable VISIT, NURSE ST XRAY Attending Clinician Unavailable José Miguel Matos Attending Clinician Luca Doran Attending Clinician Onofre Rosario Attending Clinician Alan Thrasher Attending Clinician Vanessa Mathur Attending Clinician VISIT, NURSE BERNARDO WALKER Attending Clinician Unavailable Raymond Willis Attending Clinician [phone] Abdifatah Leiva Attending Clinician DARRICK VICK Admitting Clinician Unavailable [email or web address] Admitting Clinician Unavailable Payers Payer Name Policy Type Policy Number Effective Date Expiration Date S [place] [employer]MO POS [id number] 2018 00:00:00 Problems Condition Condition Condition Status [...] PAIN K57.3 PAIN K57.3 Active 07/04/2016 OPID Chana History of History Problem Active 2019-11-27 Memoria polyp of of polyp 09-07 21:25:13 l colon of colon 00:00: Dariel (situation (situation 00 ) ) Active 09/07/2014 Problem 11/27/2019 Data migrated from [employer] on 12/16/14.
Data migrated from [employer] on 12/16/14. 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
Data migrated from [employer] on 12/16/14.
Data migrated from [employer] on 11/07/14. Medical Group,[facility], OPID Chana Edema Edema Problem Active 2019-11-27 Memor ia (finding) (finding) 01-21 21:25:13 l Active 00:00: Dariel 01/21/2013 00 Problem 11/27/2019 Data migrated from [employer] on 11/07/14. Medical Group,[facility], OPID Chana Hypertensi Hypertens Problem Active 2017-06-18 Memoria ve episode ernst 01-21 03:07:06 l (disorder) episode 00:00: Jodi nn (disorder) 00 Active 01/21/2013 Problem 06/18/2017 Data migrated from [employer] on 11/07/14. Medical Group, OPID Chana Hyperlipid Problem Active 2016-07-24 M emoria emia Hyperlipid 01-21 02:33:04 l (disorder) emia 00:00: Berhane n (disorder) 00 Active 01/21/2013 Problem 07/24/2016 Data migrated from [employer] on 12/16/14.
Data migrated from [employer] on 11/07/14. OPID Chana Diverticul Diverticu Problem Active 2019-11-27 Memoria ar disease lar 01-02 21:25:13 l of colon disease of 00:00: Herm hilton (disorder) colon 00 (disorder) Active 01/02/2013 Problem 11/27/2019 Data migrated from [employer] on 11/07/14. Medical Group,[facility], OPID Chana Internal Internal Problem Active 2019-11-27 Memoria hemorrhoid hemorrhoid 01-02 21:25:13 l s s 00:00: [place] (disorder) (disorder) 00 Active 01/02/2013 Problem 11/27/2019 Data migrated from [employer] on 11/07/14. Medical Group,[facility], OPID Chana Osteoarthr Osteoarth Problem Active 2011-062019-11-27 Memoria itis ritis 08-08 21:25:13 l (disorder) (disorder) 00:00: He rmann Active 00 06/07/2012 Problem 11/27/2019 Data migrated from [facility] on 11/07/14. 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 21:25:13 l s s Dariel (disorder) (disorder) Active Problem 11/27/2019 Medical Group,[facility], OPID Chana Gallbladde Gallbladd Problem Active 2019-11-27 Memoria r calculus er 21:25:13 l (disorder) calculus Herm hilton (disorder) Active Problem 11/27/2019 Medical Group,[facility], OPID Chana Degenerati Problem Active 2019-11-27 M emoria on of Degenerati 21:25:13 l cervical on of Dariel interverte cervical bral disc interverte (disorder) bral disc (disorder) Active Problem 11/27/2019 Medical Group,[facility], OP[facility] Chana Drug Drug Problem Active 2019-11-27 Memor ia therapy therapy 21:25:13 l finding finding Dariel (finding) (finding) Active Problem 11/27/2019 Medical Group,[facility], OPID Chana 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 21:25:13 l (disorder) (disorder) He rmann Active Problem 11/27/2019 [facility], OPID Chana Eczema Eczema Problem Active 2019-11-27 Vasile roberto (disorder) (disorder) 21:25:13 l Active Dariel Problem 11/27/2019 Medical Group, OPID Chana Finding of Finding Problem Active 2019-11-27 Memoria body mass of body 21:25:13 l index mass index Berhane n (finding) (finding) Active Problem 11/27/2019 Medical Group,[facility], OPID Chana Hypergamma Hypergamm Problem Active 2019-11-27 Memoria globulinem aglobuline 21:25:13 l ia raza Vieira (finding) (finding) Active Problem 11/27/2019 Medical Group,[facility], OPID Chana Hyperglyce Hyperglyc Problem Active 2019-11-27 Memoria raza tijerina 21:25:13 l (disorder) (disorder) He rmann Active Problem 11/27/2019 Medical Group, OPID Chana Lesion of Lesion of Problem Active 2019-11-27 Memoria liver liver 21:25:13 l (finding) (finding) Herm hilton Active Problem 11/27/2019 Medical Group,[facility], OP[facility] Chana Menopause Menopause Problem Active 2019-11-27 Memoria present present 21:25:13 l (finding) (finding) Herm hilton Active Problem 11/27/2019 Medical Group,[facility], OPID Chana 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 Vasile roberto hyperlipid hyperlipid 21:25:13 l emia emia Dariel (disorder) (disorder) Active Problem 11/27/2019 Medical Group,[facility], OP[facility] Chana 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 21:25:13 l lung lung Dariel (finding) (finding) Active Problem 11/27/2019 Medical Group,[facility], OP[facility] Chana Neck pain Neck pain Problem Active 2019-11-27 Memoria (finding) (finding) 21:25:13 l Active Dariel Problem 11/27/2019 Medical Group,[facility], OP[facility] Chana Osteoporos Osteoporo Problem Active 2019-11-27 Memoria is sis 21:25:13 l (disorder) (disorder) He rmann Active Problem 11/27/2019 Medical Group,[facility], OP[facility] Chana Atrophic Atrophic Problem Active 2019-11-27 Memoria vaginitis vaginitis 21:25:13 l (disorder) (disorder) He rmann Active Problem 11/27/2019 Medical Group,[facility], OPID Chana Hypertensi Hypertens Problem Active 2019-11-27 Memoria ve ernst 21:25:13 l disorder, disorder, Herm hilton systemic systemic arterial arterial (disorder) (disorder) Active Problem 11/27/2019 Medical Group Osteopenia Osteopeni Problem Active 2017-06-18 Memoria (disorder) a 03:07:06 l (disorder) Berhane ryan Active Problem 06/18/2017 Medical Group, OPID Chana Body mass Body mass Problem Active 2016-07-24 Memoria index index 02:33:04 l index index [place] 25-29 - 25-29 - overweight overweight (finding) (finding) Active Problem 07/24/2016 OPID Chana Right Right Problem Active 2016-07-10 Memor ia lower lower 03:43:11 l quadrant quadrant Berhane ryan pain pain (finding) (finding) Active Problem 07/10/2016 OPID Chana History of Past Illness Condition Condition Condition Status Onset Resolution Last Treating Co mments Source Name Details Category Date Date Treatment Clinician Date Other Other Problem 2018-2019-01-29 2019-01-29 M emoria abnormal abnormal 07-17 11:41:30 11:41:30 l and and 06:20: Dariel inconclusi inconclusi 36 ve ve findings findings on on diagnostic diagnostic imaging of imaging of breast breast 07/17/2018 01/29/2019 OPID Chana Asymptomat Asymptoma Problem 2018-2019-01-26 2019-01-26 Memoria ic tic 07-08 12:07:51 12:07:51 l menopausal menopausal 16:48: He [facility] state state 00 07/08/2018 01/26/2019 Medical Group Postmenopa Postmenop Problem 2018-2019-01-26 2019-01-26 Memoria usal ausal 07-08 12:07:51 12:07:51 l atrophic atrophic 16:48: Berhane ryan vaginitis vaginitis 00 07/08/2018 01/26/2019 Medical Group Leukoplaki Leukoplak Problem 2018-2019-01-26 2019-01-26 Memoria a of vulva ia of 07-08 12:07:51 12:07:51 l vulva 16:48: Dariel 07/08/201801/26/2019 Medical Group Age-relate Age-relat Problem 2018-2019-01-26 2019-01-26 [...] [facility] adverse [facility]: Medical reaction 00 [place] s PENICILL Allergy Active Hives [facility] penicill penicill Active Memori a ins<sup> ins<sup> l 2</sup> 2</sup> Dariel NO KNOWN Drug Active Univers ALLERGIE Class ity of [facility] penicill penicill Active Memori a ins<sup> ins<sup> l 1</sup> 1</sup> Dariel dicyclom dicyclom Active Memori a ine<sup> ine<sup> l 2</sup> 2</sup> Dariel Social History Social Habit Start Date Stop Date Quantity Comments Source [facility] History SDOH [facility] Alcohol Std Drinks Medica l Center History SDOH [facility] Alcohol Binge Medical Carina ter History SDOH [facility] Alcohol Comment Medical C enter Exposure to 2021-10-25 2021-11-04 Not sure [facility] of SARS-CoV-2 (event) 00:00:00 11:31:00 [facility] Alcohol intake 2020-01-14 2020-01-[address] [facility] 00:00:00 00:00:00 non-drinker of Medical Ce nter alcohol (finding) Tobacco use and 2020-01-07 2020-01-[address] [facility] exposure 00:00:00 00:00:00 tobacco non-user Medical Center History SDOH 2020-01-07 2020-01-[address] [facility] Alcohol Frequency 00:00:00 00:00:00 [facility] Social History 2018-08-01 2018-08-01 [facility] 14:27:23 14:27:23 Sex Assigned At [address] [facility] 00:00:00 00:[facility]:00 [facility] Center Smoking Status Start Date Stop Date Source Unknown if ever smoked [facility] Never smoked tobacco [facility] Medications Ordered Filled Start Stop Current [...] 10:54: daily. Medi elmira 50 mcg 21 [place] (2,000 unit) Cap calcium 2020-0 Yes 200mg [...] 5 MG tablet 00:00: Medica l 00 [place] levocetiriz 2020-[address] (XYZAL) 7-06 [facility] 5 MG tablet 00:00: Medica l 00 [place] levocetiriz 2020-[address] (XYZAL) 7-06 [facility] 5 MG tablet 00:00: Medica l 00 [place] bimatoprost 2020-0 Yes INSTILL 1 C HI [...] tab, H ermann 30 Refill(s) 4, Pharmacy: [id number] atorvastati 2020-0 Yes = 1 tab, Me moria n 20 mg 4-20 PO, Daily, l oral tablet 17:28: # 90 tab, H ermann 30 Refill(s) 4, Pharmacy: [facility][id number] atorvastati 2020-0 Yes = 1 tab, Me moria n 20 mg 4-20 PO, Daily, l oral tablet 17:28: # 90 tab, H ermann 30 Refill(s) 4, Pharmacy: [id number] atorvastati 2020-0 Yes = 1 tab, Me moria n 20 mg 4-20 PO, Daily, l oral tablet 17:28: # 90 tab, H ermann 30 Refill(s) 4, Pharmacy: [facility][id number] atorvastati 2020-0 Yes = 1 tab, Me moria n 20 mg 4-20 PO, Daily, l oral tablet 17:28: # 90 tab, H ermann 30 Refill(s) 4, Pharmacy: [facility][id number] atorvastati 2020-0 Yes = 1 tab, Me moria n 20 mg 4-20 PO, Daily, l oral tablet 17:28: # 90 tab, H ermann 30 Refill(s) 4, Pharmacy: [facility][id number] Dextrometho 2020-0 Yes 10 mL, [...] nn e 1 MG/ML / 00 Refill(s), [facility]: 10 MG/ML [id number] Solution Dextrometho 2020-0 Yes 10 mL, PO, Memoria rphan 2-11 Q4H, # 120 l Hydrobromid 22:52: mL, 0 Jodi nn e 1 MG/ML / 00 Refill(s), [facility]: 10 MG/ML [id number] Solution Dextrometho 2020-0 Yes 10 mL, PO, Memoria rphan 2-11 Q4H, # 120 l Hydrobromid 22:52: mL, 0 Jodi nn e 1 MG/ML / 00 Refill(s), [facility]: 10 MG/ML [id number] Solution azithromyci 2020-0 Yes 500 mg = 1 Memoria n 500 mg 1-07 tab, PO, l oral tablet 20:36: Daily, X 5 [place] 00 day, # 5 tab, 0 Refill(s), [facility]acy: [id number] azithromyci 2020-0 Yes 500 mg = 1 Memoria n 500 mg 1-07 tab, PO, l oral tablet 20:36: Daily, X 5 [place] 00 day, # 5 tab, 0 Refill(s), [facility]acy: [id number] azithromyci 2020-0 Yes 500 mg = 1 Memoria n 500 mg 1-07 tab, PO, l oral tablet 20:36: Daily, X 5 [place] 00 day, # 5 tab, 0 Refill(s), [...] l oral tablet 20:36: Daily, X 5 [place] 00 day, # 5 tab, 0 Refill(s), [facility]: [id number] azithromyci 2020-0 Yes 500 mg = 1 Memoria n 500 mg 1-07 tab, PO, l oral tablet 20:36: Daily, X 5 Dariel 00 day, # 5 tab, 0 Refill(s), Pharmacy: [id number] omeprazole 2018-06 Yes 20 mg = 1 [...] tab, PO, l MG Oral 16:30: Q12H [place] Tablet 00 Metronidazo 2018-06 Yes 500 mg = 1 Memoria le 500 MG -27 tab, PO, l Oral Tablet 16:30: Q12H, 0 Her hawk [Flagyl] 00 Refill(s) bismuth 2018-06 Yes 524 mg = 2 Vasile roberto subsalicyla -27 tab, CHEW, l te 262 MG 16:30: BID, 0 Berhane n Chewable 00 Refill(s) Tablet [Pepto-bism ol] doxycycline 2018-06 Yes 100 mg = 1 Memoria hyclate 100 1-27 tab, PO, l MG Oral 16:30: Q12H [place] Tablet 00 Metronidazo 2018-06 Yes 500 mg [...] tab, PO, l MG Oral 16:30: Q12H [place] Tablet 00 Metronidazo 2018-06 Yes 500 mg [...] Chewable 00 Refill(s) Tablet [Pepto-bism ol] doxycycline 2019-1 Yes 100 mg = 1 Memoria hyclate 100 - tab, PO, l MG Oral 16:30: Q12H [place] Tablet 00 Metronidazo 2018-06 Yes 500 mg = 1 Memoria le 500 MG 07-07 tab, PO, l Oral Tablet 16:30: Q12H, 0 Her hawk [Flagyl] 00 Refill(s) bismuth 2018-06 Yes 524 mg = 2 Vasile roberto subsalicyla 07-07 tab, CHEW, l te 262 MG 16:30: BID, 0 Berhane n Chewable 00 Refill(s) Tablet [Pepto-bism ol] Acetaminoph 2018-06 Yes 325 mg = 1 Memoria en 325 MG 0-17 cap, PO, l Oral 18:46: TID, # 21 [place] Capsule 30 cap, 0 [Tylenol] Refill(s), Pharmacy: [id number] Acetaminoph 2018-06 Yes 325 mg = 1 Memoria en 325 MG 0-17 cap, PO, l Oral 18:46: TID, # 21 Dariel Capsule 30 cap, 0 [Tylenol] Refill(s), Pharmacy: [id number] Acetaminoph 2018-06 Yes 325 mg = 1 Memoria en 325 MG 0-17 cap, PO, l Oral 18:46: TID, # 21 [place] Capsule 30 cap, 0 [Tylenol] Refill(s), Pharmacy: [facility] #67 Acetaminoph 2018-06 Yes 325 mg = 1 Memoria en 325 MG 0-17 cap, PO, l Oral 18:46: TID, # 21 Dariel Capsule 30 cap, 0 [Tylenol] Refill(s), Pharmacy: [facility] #67 Acetaminoph 2018-06 Yes 325 mg = 1 Memoria en 325 MG 0-17 cap, PO, l Oral 18:46: TID, # 21 Dariel Capsule 30 cap, 0 [Tylenol] Refill(s), Pharmacy: [facility] #67 Acetaminoph 2018-06 Yes 325 mg = 1 Memoria en 325 MG 0-17 cap, PO, l Oral 18:46: TID, # 21 Dariel Capsule 30 cap, 0 [Tylenol] Refill(s), Pharmacy: [facility] #[id number] azithromyci 2018-06 Yes 500 mg = 1 Memoria n 500 mg 0-17 tab, PO, l oral tablet 18:46: Daily, X 5 Dariel 06 day, # 5 tab, 0 Refill(s), [id number] azithromyci 2018-06 Yes 500 mg = 1 Memoria n 500 mg 0-17 tab, PO, l oral tablet 18:46: Daily, X 5 Dariel 06 day, # 5 tab, 0 Refill(s), [id number] azithromyci 2018-06 Yes 500 mg = 1 Memoria n 500 mg 0-17 tab, PO, l oral tablet 18:46: Daily, X 5 [place] 06 day, # 5 tab, 0 Refill(s), [id number] azithromyci 2018-06 Yes 500 mg = 1 Memoria n 500 mg 0-17 tab, PO, l oral tablet 18:46: Daily, X 5 [place] 06 day, # 5 tab, 0 Refill(s), [id number] azithromyci 2018-06 Yes 500 mg = 1 Memoria n 500 mg 0-17 tab, PO, l oral tablet 18:46: Daily, X 5 Dariel 06 day, # 5 tab, 0 Refill(s), [id number] azithromyci 2018-06 Yes 500 mg = 1 Memoria n 500 mg 0-17 tab, PO, l oral tablet 18:46: Daily, X 5 [place] 06 day, # 5 tab, 0 Refill(s), [id number] Fluticasone 2018-06 Yes 1 spray, Me moria propionate 0-17 NASAL, l 0.05 18:45: BID, # 16 [place] MG/ACTUAT 12 gm, 0 Metered Refill(s), Dose Nasal Pharmacy: [facility] [[facility]] #[id number] Fluticasone 2018-06 Yes 1 spray, Me moria propionate 0-17 NASAL, l 0.05 18:45: BID, # 16 Dariel MG/ACTUAT 12 gm, 0 Metered Refill(s), Dose Nasal Pharmacy: [facility] [[facility]on[facility]] #[id number] Fluticasone 2018-06 Yes 1 spray, Me moria propionate 0-17 NASAL, l 0.05 18:45: BID, # 16 [place] MG/ACTUAT 12 gm, 0 Metered Refill(s), Dose Nasal Pharmacy: [facility] #[id number] Fluticasone 2018-06 Yes 1 spray, Me moria propionate 0-17 NASAL, l 0.05 18:45: BID, # 16 [place] MG/ACTUAT 12 gm, 0 Metered Refill(s), Dose Nasal Pharmacy: [facility] #[id number] Fluticasone 2018-06 Yes 1 spray, Me moria propionate 0-17 NASAL, l 0.05 18:45: BID, # 16 Dariel MG/ACTUAT 12 gm, 0 Metered Refill(s), Dose Nasal Pharmacy: [facility] #[id number] Fluticasone 2018-06 Yes 1 spray, Me moria propionate 0-17 NASAL, l 0.05 18:45: BID, # 16 Dariel MG/ACTUAT 12 gm, 0 Metered Refill(s), Dose Nasal Pharmacy: [facility] #[id number] Fluticasone 2018-06 No 1 spray, Me moria propionate 0-17 NASAL, l 0.05 18:38: BID, # 16 Dariel MG/ACTUAT 00 gm, 0 Metered Refill(s), Dose Nasal Pharmacy: [facility] [[facility] #[id number] Acetaminoph 2018-06 No 325 mg = 1 Memoria en 325 MG 0-17 cap, PO, l Oral 18:38: TID, # 21 Dariel Capsule 00 cap, 0 [Tylenol] Refill(s), Pharmacy: [id number] azithromyci 2018-06 No 500 mg = 1 Memoria n 500 mg 0-17 tab, PO, l oral tablet 18:38: Daily, X 5 [place] 00 day, # 5 tab, 0 Refill(s), Pharmacy: [id number] Fluticasone 2018-06 No 1 spray, Me moria propionate 0-17 NASAL, l 0.05 18:38: BID, # 16 [place] MG/ACTUAT 00 gm, 0 Metered Refill(s), Dose Nasal Pharmacy: [facility] [[facility] #[id number] Acetaminoph 2018-06 No 325 mg = 1 Memoria en 325 MG 0-17 cap, PO, l Oral 18:38: TID, # 21 Dariel Capsule 00 cap, 0 [Tylenol] Refill(s), Pharmacy: [id number] azithromyci 2018-06 No 500 mg = 1 Memoria n 500 mg 0-17 tab, PO, l oral tablet 18:38: Daily, X 5 [place] 00 day, # 5 tab, 0 Refill(s), Pharmacy: [id number] Fluticasone 2018-06 No 1 spray, Me moria propionate 0-17 NASAL, l 0.05 18:38: BID, # 16 [place] MG/ACTUAT 00 gm, 0 Metered Refill(s), Dose Nasal Pharmacy: [facility] [[facility] #[id number] Acetaminoph 2018-06 No 325 mg = 1 Memoria en 325 MG 0-17 cap, PO, l Oral 18:38: TID, # 21 Dariel Capsule 00 cap, 0 [Tylenol] Refill(s), Pharmacy: [id number] azithromyci 2018-06 No 500 mg = 1 Memoria n 500 mg 0-17 tab, PO, l oral tablet 18:38: Daily, X 5 [place] 00 day, # 5 tab, 0 Refill(s), Pharmacy: [id number] Fluticasone 2018-06 No 1 spray, Me moria propionate 0-17 NASAL, l 0.05 18:38: BID, # 16 Dariel MG/ACTUAT 00 gm, 0 Metered Refill(s), Dose Nasal Pharmacy: [facility] [[facility] #[id number] Acetaminoph 2018-06 No 325 mg = 1 Memoria en 325 MG 0-17 cap, PO, l Oral 18:38: TID, # 21 Dariel Capsule 00 cap, 0 [Tylenol] Refill(s), Pharmacy: [id number] azithromyci 2018-06 No 500 mg = 1 Memoria n 500 mg 0-17 tab, PO, l oral tablet 18:38: Daily, X 5 Dariel 00 day, # 5 tab, 0 Refill(s), Pharmacy: [id number] Fluticasone 2018-06 No 1 spray, Me moria propionate 0-17 NASAL, l 0.05 18:38: BID, # 16 Dariel MG/ACTUAT 00 gm, 0 Metered Refill(s), Dose Nasal Pharmacy: [facility] [[facility] #[id number] Acetaminoph 2018-06 No 325 mg = 1 Memoria en 325 MG 0-17 cap, PO, l Oral 18:38: TID, # 21 [place] Capsule 00 cap, 0 [Tylenol] Refill(s), [id number] No 500 mg = 1 Memoria n 500 mg 0-17 tab, PO, l oral tablet 18:38: Daily, X 5 [place] 00 day, # 5 tab, 0 Refill(s), Pharmacy: [id number] Fluticasone 2018-06 No 1 spray, Me moria propionate 0-17 NASAL, l 0.05 18:38: BID, # 16 Dariel MG/ACTUAT 00 gm, 0 Metered Refill(s), Dose Nasal Pharmacy: [facility] [[facility] #[id number] Acetaminoph 2018-06 No 325 mg = 1 Memoria en 325 MG 0-17 cap, PO, l Oral 18:38: TID, # 21 [place] Capsule 00 cap, 0 [Tylenol] Refill(s), Pharmacy: [id number] azithromyci 2018-06 No 500 mg = 1 Memoria n 500 mg 0-17 tab, PO, l oral tablet 18:38: Daily, X 5 [place] 00 day, # 5 tab, 0 Refill(s), Pharmacy: [id number] Levofloxaci 2019- Yes 500 mg = 1 Memoria n 500 MG 7-24 tab, PO, l Oral Tablet 13:38: Q24H, X 7 H ermann [Levaquin] 00 day, # 7 tab, 0 Refill(s), Pharmacy: [id number] Levofloxaci 2019- Yes 500 mg = 1 Memoria n 500 MG 7-24 tab, PO, l Oral Tablet 13:38: Q24H, X 7 H ermann [Levaquin] 00 day, # 7 tab, 0 Refill(s), Pharmacy: [id number] Levofloxaci 2019-0 Yes 500 mg = 1 Memoria n 500 MG 7-24 tab, PO, l Oral Tablet 13:38: Q24H, X 7 H ermann [Levaquin] 00 day, # 7 tab, 0 Refill(s), Pharmacy: [id number] Levofloxaci 2019-0 Yes 500 mg = 1 Memoria n 500 MG 7-24 tab, PO, l Oral Tablet 13:38: Q24H, X 7 H ermann [Levaquin] 00 day, # 7 tab, 0 Refill(s), [id number] Levofloxaci 2019-0 Yes 500 mg = 1 Memoria n 500 MG 7-24 tab, PO, l Oral Tablet 13:38: Q24H, X 7 H ermann [Levaquin] 00 day, # 7 tab, 0 Refill(s), [id number] Levofloxaci 2019-0 Yes 500 mg = 1 Memoria n 500 MG 7-24 tab, PO, l Oral Tablet 13:38: Q24H, X 7 H ermann [Levaquin] 00 day, # 7 tab, 0 Refill(s), [id number] Levofloxaci 2019-0 No 500 mg = 1 Memoria n 500 MG 1-29 tab, PO, l Oral Tablet 14:52: Q24H, X 7 H ermann [Levaquin] 00 day, # 7 tab, 0 Refill(s), Pharmacy: [facility] #[id number] Levofloxaci 2019-0 No 500 mg = 1 Memoria n 500 MG 1-29 tab, PO, l Oral Tablet 14:52: Q24H, X 7 H ermann [Levaquin] 00 day, # 7 tab, 0 Refill(s), Pharmacy: [facility] #[id number] Levofloxaci 2019-0 No 500 mg = 1 Memoria n 500 MG 1-29 tab, PO, l Oral Tablet 14:52: Q24H, X 7 H ermann [Levaquin] 00 day, # 7 tab, 0 Refill(s), Pharmacy: [facility] #[id number] Levofloxaci 2019-0 No 500 mg = 1 Memoria n 500 MG 1-29 tab, PO, l Oral Tablet 14:52: Q24H, X 7 H ermann [Levaquin] 00 day, # 7 tab, 0 Refill(s), [id number] Levofloxaci No 500 mg = 1 Memoria n 500 MG 1-29 tab, PO, l Oral Tablet 14:52: Q24H, X 7 H ermann [Levaquin] 00 day, # 7 tab, 0 Refill(s), [id number] Levofloxaci No 500 mg = 1 Memoria n 500 MG 1-29 tab, PO, l Oral Tablet 14:52: Q24H, X 7 H ermann [Levaquin] 00 day, # 7 tab, 0 Refill(s), [id number] Levofloxaci 2017-06 No 500 mg = 1 Memoria n 500 MG 0-18 tab, PO, l Oral Tablet 18:59: Q24H, X 10 Dariel [Levaquin] 00 day, # 10 tab, 0 Refill(s), [id number] Levofloxaci 2017-06 No 500 mg = 1 Memoria n 500 MG 0-18 tab, PO, l Oral Tablet 18:59: Q24H, X 10 [place] [Levaquin] 00 day, # 10 tab, 0 Refill(s), [id number] Levofloxaci 2017-06 No 500 mg = 1 Memoria n 500 MG 0-18 tab, PO, l Oral Tablet 18:59: Q24H, X 10 [place] [Levaquin] 00 day, # 10 tab, 0 Refill(s), [id number] Levofloxaci 2017-06 No 500 mg = 1 Memoria n 500 MG 0-18 tab, PO, l Oral Tablet 18:59: Q24H, X 10 Dariel [Levaquin] 00 day, # 10 tab, 0 Refill(s), [id number] Levofloxaci 2017-06 No 500 mg = 1 Memoria n 500 MG 0-18 tab, PO, l Oral Tablet 18:59: Q24H, X 10 [place] [Levaquin] 00 day, # 10 tab, 0 Refill(s), Pharmacy: [id number] Levofloxaci 2017-06 No 500 mg = 1 Memoria n 500 MG 0-18 tab, PO, l Oral Tablet 18:59: Q24H, X 10 [place] [Levaquin] 00 day, # 10 tab, 0 Refill(s), Pharmacy: [facility] #[id number] Codeine No See Memoria Phosphate 2 9-25 Instructio l MG/ML / 21:35: ns, PRN [place] Guaifenesin 53 cough, 20 MG/ML 5-10 mL PO Oral Q6H prn Solution cough, # [Cheratussi 240 mL, 1 n] Refill(s) Codeine No See Memoria Phosphate 2 9-25 Instructio l MG/ML / 21:35: ns, PRN [place] Guaifenesin 53 cough, 20 MG/ML 5-10 mL [...] [Cheratussi 240 mL, 1 n] Refill(s) valacyclovi 2018-0 No 1 gm = 1 Me moria r 1000 MG 9-25 tab, PO, l Oral Tablet 21:35: ONCE, # 1 H ermann [Valtrex] 00 tab, 0 Refill(s), Pharmacy: [id number] valacyclovi 2018-0 No 1 gm = 1 Me moria r 1000 MG 9-25 tab, PO, l Oral Tablet 21:35: ONCE, # 1 H ermann [Valtrex] 00 tab, 0 Refill(s), Pharmacy: [facility][id number] valacyclovi 2018-0 No 1 gm = 1 Me moria r 1000 MG 9-25 tab, PO, l Oral Tablet 21:35: ONCE, # 1 H ermann [Valtrex] 00 tab, 0 Refill(s), Pharmacy: [facility][id number] valacyclovi 2018-0 No 1 gm = 1 Me moria r 1000 MG 9-25 tab, PO, l Oral Tablet 21:35: ONCE, # 1 H ermann [Valtrex] 00 tab, 0 Refill(s), Pharmacy: [facility][id number] valacyclovi 2018-0 No 1 gm = 1 Me moria r 1000 MG 9-25 tab, PO, l Oral Tablet 21:35: ONCE, # 1 H ermann [Valtrex] 00 tab, 0 Refill(s), Pharmacy: [facility][id number] valacyclovi 2018-0 No 1 gm = 1 Me moria r 1000 MG 9-25 tab, PO, l Oral Tablet 21:35: ONCE, # 1 H ermann [Valtrex] 00 tab, 0 Refill(s), Pharmacy: [facility][id number] Hydrocortis 2018-0 No 1 appl, Mem oria one 25 9-05 TOP, BID, l MG/ML 20:06: X 14 day, Dariel Topical 00 # 30 gm, 0 Cream Refill(s), Pharmacy: [facility][id number] Hydrocortis 2018-0 No 1 appl, Mem oria one 25 9-05 TOP, BID, l MG/ML 20:06: X 14 day, Dariel Topical 00 # 30 gm, 0 Cream Refill(s), Pharmacy: [id number] Hydrocortis No 1 appl, Mem oria one 25 9-05 TOP, BID, l MG/ML 20:06: X 14 day, [place] Topical 00 # 30 gm, 0 Cream Refill(s), [id number] Hydrocortis No 1 appl, Mem oria one 25 9-05 TOP, BID, l MG/ML 20:06: X 14 day, [place] Topical 00 # 30 gm, 0 Cream Refill(s), [id number] Hydrocortis No 1 appl, Mem oria one 25 9-05 TOP, BID, l MG/ML 20:06: X 14 day, Dariel Topical 00 # 30 gm, 0 Cream Refill(s), [id number] Hydrocortis No 1 appl, Mem oria one 25 9-05 TOP, BID, l MG/ML 20:06: X 14 day, [place] Topical 00 # 30 gm, 0 Cream Refill(s), [id number] baclofen 10 Yes See Memori a mg oral 4-16 Instructio l tablet 17:59: ns, # 90 [place] 43 tab, TAKE 1 TABLET BY MOUTH 3 TIMES A DAY NEEDED FOR SPASMS, [id number] baclofen 10 Yes See Memori a mg oral 4-16 Instructio l tablet 17:59: ns, # 90 [place] 43 tab, TAKE 1 TABLET BY MOUTH 3 TIMES A DAY NEEDED FOR SPASMS, [id number] baclofen 10 Yes See Memori a mg oral 4-16 Instructio l tablet 17:59: ns, # 90 Dariel 43 tab, TAKE 1 TABLET BY MOUTH 3 TIMES A DAY NEEDED FOR SPASMS, Pharmacy: [facility] #[id number] baclofen 10 Yes See Memori a mg oral 4-16 Instructio l tablet 17:59: ns, # 90 [place] 43 tab, TAKE 1 TABLET BY MOUTH 3 TIMES A DAY NEEDED FOR SPASMS, [id number] baclofen 10 Yes See Memori a mg oral 4-16 Instructio l tablet 17:59: ns, # 90 [place] 43 tab, TAKE 1 TABLET BY MOUTH 3 TIMES A DAY NEEDED FOR SPASMS, Pharmacy: [id number] baclofen 10 Yes See Memori a mg oral 4-16 Instructio l tablet 17:59: ns, # 90 Dariel 43 tab, TAKE 1 TABLET BY MOUTH 3 TIMES A DAY NEEDED FOR SPASMS, Pharmacy: [id number] baclofen 10 No See Memori a mg oral 3-13 Instructio l tablet 19:36: ns, # 90 [place] 08 tab, TAKE 1 TABLET BY MOUTH 3 TIMES A DAY NEEDED FOR SPASMS, Pharmacy: [facility] #[id number] baclofen 10 No See Memori a mg oral 3-13 Instructio l tablet 19:36: ns, # 90 Dariel 08 tab, TAKE 1 TABLET BY MOUTH 3 TIMES A DAY NEEDED FOR SPASMS, Pharmacy: [facility] #[id number] baclofen 10 No See Memori a mg oral 3-13 Instructio l tablet 19:36: ns, # 90 [place] 08 tab, TAKE 1 TABLET BY MOUTH 3 TIMES A DAY NEEDED FOR SPASMS, Pharmacy: [id number] baclofen 10 No See Memori a mg oral 3-13 Instructio l tablet 19:36: ns, # 90 Dariel 08 tab, TAKE 1 TABLET BY MOUTH 3 TIMES A DAY NEEDED FOR SPASMS, Pharmacy: [facility] #[id number] baclofen 10 No See Memori a mg oral 3-13 Instructio l tablet 19:36: ns, # 90 [place] 08 tab, TAKE 1 TABLET BY MOUTH 3 TIMES A DAY NEEDED FOR SPASMS, Pharmacy: [id number] baclofen 10 No See Memori a mg oral 3-13 Instructio l tablet 19:36: ns, # 90 Dariel 08 tab, TAKE 1 TABLET BY MOUTH 3 TIMES A DAY NEEDED FOR SPASMS, Pharmacy: [id number] tramadol 2017-0 No 50 mg = [...] tab, PO, l tablet 20:01: TID, PRN [place] 00 Spasms, # 90 tab, 0 Refill(s), [facility]: [id number] baclofen No 10 mg = 1 M emoria mg oral 2-14 tab, PO, l tablet 20:01: TID, PRN Dariel 00 Spasms, # 90 tab, 0 Refill(s), [facility]: [id number] baclofen No 10 mg = 1 M emoria mg oral 2-14 tab, PO, l tablet 20:01: TID, PRN [place] 00 Spasms, # 90 tab, 0 Refill(s), [facility]: [id number] baclofen No 10 mg = 1 M emoria mg oral 2-14 tab, PO, l tablet 20:01: TID, PRN Dariel 00 Spasms, # 90 tab, 0 Refill(s), [facility]: [id number] baclofen No 10 mg = 1 M emoria mg oral 2-14 tab, PO, l tablet 20:01: TID, PRN [place] 00 Spasms, # 90 tab, 0 Refill(s), Pharmacy: [facility] #[id number] baclofen 10 No 10 mg = 1 M emoria mg oral 2-14 tab, PO, l tablet 20:01: TID, PRN [place] 00 Spasms, # 90 tab, 0 Refill(s), Pharmacy: [facility] #[id number] Triamcinolo Yes See Memori a ne 1-18 Instructio l Acetonide 1 15:48: ns, apply H ermann MG/ML 00 small Topical amount to Cream affected area twice/day until symptoms resolved., # 60 gm, 1 Refill(s), Pharmacy: [facility] #[id number] Triamcinolo Yes See Memori a ne 1-18 Instructio l Acetonide 1 15:48: ns, apply H ermann MG/ML 00 small Topical amount to Cream affected area twice/day until symptoms resolved., # 60 gm, 1 Refill(s), Pharmacy: [facility] #[id number] Triamcinolo Yes See Memori a ne 1-18 Instructio l Acetonide 1 15:48: ns, apply H ermann MG/ML 00 small Topical amount to Cream affected area twice/day until symptoms resolved., # 60 gm, 1 Refill(s), Pharmacy: [facility] #[id number] Triamcinolo Yes See Memori a ne 1-18 Instructio l Acetonide 1 15:48: ns, apply H ermann MG/ML 00 small Topical amount to Cream affected area twice/day until symptoms resolved., # 60 gm, 1 Refill(s), Pharmacy: [facility] #[id number] Triamcinolo Yes See Memori a ne 1-18 Instructio l Acetonide 1 15:48: ns, apply H ermann MG/ML 00 small Topical amount to Cream affected area twice/day until symptoms resolved., # 60 gm, 1 Refill(s), Pharmacy: [facility] #[id number] Triamcinolo Yes See Memori a ne 1-18 Instructio l Acetonide 1 15:48: ns, apply H ermann MG/ML 00 small Topical amount to Cream affected area twice/day until symptoms resolved., # 60 gm, 1 Refill(s), Pharmacy: [facility] #[id number] atorvastati 2018- No 20 mg = 1 M emoria n 20 mg 1-11 tab, PO, l oral tablet 19:41: Daily, # He rmann 00 90 tab, 0 Refill(s), Pharmacy: [facility] #[id number] atorvastati No 20 mg = 1 M emoria n 20 mg 1-11 tab, PO, l oral tablet 19:41: Daily, # He rmann 00 90 tab, 0 Refill(s), Pharmacy: [facility] #[id number] atorvastati No 20 mg = 1 M emoria n 20 mg 1-11 tab, PO, l oral tablet 19:41: Daily, # He rmann 00 90 tab, 0 Refill(s), Pharmacy: [facility] #[id number] atorvastati No 20 mg = 1 M emoria n 20 mg 1-11 tab, PO, l oral tablet 19:41: Daily, # He rmann 00 90 tab, 0 Refill(s), Pharmacy: [facility] #[id number] atorvastati No 20 mg = 1 M emoria n 20 mg 1-11 tab, PO, l oral tablet 19:41: Daily, # He rmann 00 90 tab, 0 Refill(s), Pharmacy: [facility] #[id number] atorvastati No 20 mg = 1 M emoria n 20 mg 1-11 tab, PO, l oral tablet 19:41: Daily, # He rmann 00 90 tab, 0 Refill(s), Pharmacy: [facility] #[id number] atorvastati 2018- Yes 20 mg = 1 M emoria n 20 mg 1-11 tab, PO, l oral tablet 19:40: Daily, # He rmann 15 90 tab, 5 Refill(s), Pharmacy: [facility] #[id number] atorvastati 2018- Yes 20 mg = 1 M emoria n 20 mg 1-11 tab, PO, l oral tablet 19:40: Daily, # He rmann 15 90 tab, 5 Refill(s), Pharmacy: [facility] #[id number] atorvastati 2018-0 Yes 20 mg = 1 M emoria n 20 mg 1-11 tab, PO, l oral tablet 19:40: Daily, # He rmann 15 90 tab, 5 Refill(s), Pharmacy: [facility] #[id number] atorvastati 2018-0 Yes 20 mg = 1 M emoria n 20 mg 1-11 tab, PO, l oral tablet 19:40: Daily, # He rmann 15 90 tab, 5 Refill(s), Pharmacy: [facility] #[id number] atorvastati 2018-0 Yes 20 mg = 1 M emoria n 20 mg 1-11 tab, PO, l oral tablet 19:40: Daily, # He rmann 15 90 tab, 5 Refill(s), Pharmacy: [facility] #[id number] atorvastati 2018-0 Yes 20 mg = 1 M emoria n 20 mg 1-11 tab, PO, l oral tablet 19:40: Daily, # He rmann 15 90 tab, 5 Refill(s), Pharmacy: [facility] #[id number] amLODIPine 2018-0 Yes See Memoria 5 mg oral 1-04 Instructio l tablet 18:47: ns, TAKE 1 Jodi nn 05 TABLET BY MOUTH DAILY, # 90 tab, 1 Refill(s), Pharmacy: [facility] #[id number] amLODIPine 2018-0 Yes See Memoria 5 mg oral 1-04 Instructio l tablet 18:47: ns, TAKE 1 Jodi nn 05 TABLET BY MOUTH DAILY, # 90 tab, 1 Refill(s), Pharmacy: [facility] #[id number] amLODIPine 2018-0 Yes See Memoria 5 mg oral 1-04 Instructio l tablet 18:47: ns, TAKE 1 Jodi nn 05 TABLET BY MOUTH DAILY, # 90 tab, 1 Refill(s), Pharmacy: [facility] #[id number] amLODIPine 2018-0 Yes See Memoria 5 mg oral 1-04 Instructio l tablet 18:47: ns, TAKE 1 Jodi nn 05 TABLET BY MOUTH DAILY, # 90 tab, 1 Refill(s), Pharmacy: [facility] #[id number] amLODIPine 2018-0 Yes See Memoria 5 mg oral 1-04 Instructio l tablet 18:47: ns, TAKE 1 Jodi nn 05 TABLET BY MOUTH DAILY, # 90 tab, 1 Refill(s), [id number] amLODIPine 2018-0 Yes See Memoria 5 mg oral -04 Instructio l tablet 18:47: ns, TAKE 1 Jodi nn 05 TABLET BY MOUTH DAILY, # 90 tab, 1 Refill(s), Pharmacy: [facility] levofloxaci 2018-0 Yes 500 mg = 1 Memoria n 500 mg 1-04 tab, PO, l oral tablet 14:44: Daily, X He rmann 00 10 day, # 10 tab, 0 Refill(s), [id number], [place] the Zithromax order levofloxaci 2018-0 Yes 500 mg = 1 Memoria n 500 mg 1-04 tab, PO, l oral tablet 14:44: Daily, X He rmann 00 10 day, # 10 tab, 0 Refill(s), [id number], [place] the Zithromax order levofloxaci 2018-0 Yes 500 mg = 1 Memoria n 500 mg 1-04 tab, PO, l oral tablet 14:44: Daily, X He rmann 00 10 day, # 10 tab, 0 Refill(s), [id number], DC the Zithromax order levofloxaci 2018-0 Yes 500 mg = 1 Memoria n 500 mg 1-04 tab, PO, l oral tablet 14:44: Daily, X He rmann 00 10 day, # 10 tab, 0 Refill(s), [id number], DC the Zithromax order levofloxaci 2018-0 Yes 500 mg = 1 Memoria n 500 mg 1-04 tab, PO, l oral tablet 14:44: Daily, X He rmann 00 10 day, # 10 tab, 0 Refill(s), [id number], DC the Zithromax order levofloxaci 2018-0 Yes 500 mg = 1 Memoria n 500 mg 1-04 tab, PO, l oral tablet 14:44: Daily, X He rmann 00 10 day, # 10 tab, 0 Refill(s), [id number], DC the Zithromax order Codeine 2017-0 Yes See Memoria Phosphate 2 1-04 Instructio l MG/ML / 14:40: ns, PRN [place] Guaifenesin 00 cough, 20 MG/ML 5-10 mL [...] Instructio l MG/ML / 14:40: ns, PRN [place] Guaifenesin 00 cough, 20 MG/ML 5-10 mL [...] Instructio l MG/ML / 14:40: ns, PRN [place] Guaifenesin 00 cough, 20 MG/ML 5-10 mL [...] day, # 6 tab, 0 Refill(s), [facility]acy: [id number] {6 No See Memoria (Azithromyc 1-04 Instructio l in 250 MG 14:39: ns, Take 2 He rmann Oral Tablet 00 tablets by [Zithromax] mouth the ) } Pack first day [Z-PAKS] then 1 tablet by mouth days 2-5., X 5 day, # 6 tab, 0 Refill(s), [facility]: [id number] {6 No See Memoria (Azithromyc 1-04 Instructio l in 250 MG 14:39: ns, Take 2 He rmann Oral Tablet 00 tablets by [Zithromax] mouth the ) } Pack first day [Z-PAKS] then 1 tablet by mouth days 2-5., X 5 day, # 6 tab, 0 Refill(s), [facility]: [id number] {6 No See Memoria (Azithromyc 1-04 Instructio l in 250 MG 14:39: ns, Take 2 He rmann Oral Tablet 00 tablets by [Zithromax] mouth the ) } Pack first day [Z-PAKS] then 1 tablet by mouth days 2-5., X 5 day, # 6 tab, 0 Refill(s), Pharm[facility]: [id number] {6 No See Memoria (Azithromyc 1-04 Instructio l in 250 MG 14:39: ns, Take 2 He rmann Oral Tablet 00 tablets by [Zithromax] mouth the ) } Pack first day [Z-PAKS] then 1 tablet by mouth days 2-5., X 5 day, # 6 tab, 0 Refill(s), [facility]: [id number] {6 No See Memoria (Azithromyc 1-04 Instructio l in 250 MG 14:39: ns, Take 2 He rmann Oral Tablet 00 tablets by [Zithromax] mouth the ) } Pack first day [Z-PAKS] then 1 tablet by mouth days 2-5., X 5 day, # 6 tab, 0 Refill(s), [facility]: [id number] Immunizations Ordered Filled Date Status Comments Source Immunization Name Immunization Name SARS-COV-2 COVID-19 2021-03-29 Completed [facility] PFIZER VACCINE 00:00:00 [facility] SARS-COV-2 COVID-19 2021-03-29 Completed [facility] of PFIZER VACCINE 00:00:00 [facility] SARS-COV-2 COVID-19 2021-03-29 Completed [facility] of PFIZER VACCINE 00:00:00 [facility] SARS-COV-2 COVID-19 2020-08-23 Completed [facility] of PFIZER VACCINE 00:00:00 [facility] SARS-COV-2 COVID-19 2020-08-23 Completed [facility] of PFIZER VACCINE 00:00:00 [facility] SARS-COV-2 COVID-19 2020-08-23 Completed [facility] of PFIZER VACCINE 00:00:00 [facility] SARS-COV-2 COVID-19 2020-08-23 Completed [facility] of PFIZER VACCINE 00:00:00 [facility] SARS-COV-2 COVID-19 2020-08-23 Completed [facility] of PFIZER VACCINE 00:00:00 [facility] SARS-COV-2 COVID-19 2020-08-23 Completed [facility]ive [facility] of PFIZER VACCINE 00:00:00 [facility] SARS-COV-2 COVID-19 2020-08-02 Completed [facility] of PFIZER VACCINE 00:00:00 [facility] SARS-COV-2 COVID-19 2020-08-02 Completed [facility] of PFIZER VACCINE 00:00:00 [facility] SARS-COV-2 COVID-19 2020-08-02 Completed [facility] of PFIZER VACCINE 00:00:00 [facility] SARS-COV-2 COVID-19 2020-08-02 Completed [facility] of PFIZER VACCINE 00:00:00 [facility] SARS-COV-2 COVID-19 2020-08-02 Completed [facility] of PFIZER VACCINE 00:00:00 [facility] SARS-COV-2 COVID-19 2020-08-02 Completed [facility] of PFIZER VACCINE 00:00:00 [facility] influenza virus 2019-02-[facility] virus 2019-02-27 [facility], 15:[facility]:00 inactivated influenza virus 2019-02-27 Completed [facility] [place] vaccine, 15:54:00 inactivated influenza virus 2019-02-27 Completed [facility] vaccine, 15:54:00 inactivated influenza virus 2019-02-27 Completed [facility] [place] vaccine, 15:54:00 inactivated pneumococcal 2018-03-05 Completed [facility] [...] 21:01:00 inactivated influenza virus 2018-03-05 Completed [facility] [place] vaccine, 21:01:00 inactivated influenza virus 2018-03-05 Completed [facility] [place] vaccine, 21:01:00 inactivated influenza virus 2017-04-27 Completed [facility] [place] vaccine, 16:16:00 inactivated influenza virus 2017-04-27 Completed [facility] [place] vaccine, 16:16:00 inactivated influenza virus 2017-04-27 Completed [facility] [place] vaccine, 16:16:00 inactivated influenza virus 2017-04-27 Completed [facility] [place] vaccine, 16:16:00 inactivated influenza virus 2017-04-27 Completed [facility] [place] vaccine, 16:16:00 inactivated influenza virus 2016-02-07 Completed [facility] [place] vaccine, 18:11:00 inactivated influenza virus 2016-02-07 Completed [facility] [place] vaccine, 18:11:00 inactivated influenza virus 2016-02-07 Completed [facility] [place] vaccine, 18:11:00 inactivated influenza virus 2016-02-07 Completed [facility] [place] vaccine, 18:11:00 inactivated influenza virus 2016-02-07 Completed [facility] [place] vaccine, 18:11:00 inactivated influenza virus 2015-04-21 Completed [facility] [place] vaccine, 22:30:00 inactivated influenza virus 2015-04-21 Completed [facility] [place] vaccine, 22:30:00 inactivated influenza virus 2015-04-21 Completed [facility] [place] vaccine, 22:30:00 inactivated influenza virus 2015-04-21 Completed [facility] [place] vaccine, 22:30:00 inactivated influenza virus 2015-04-21 Completed [facility] [place] vaccine, 22:30:00 inactivated influenza virus 2014-04-23 Completed [facility] vaccine, 06:00:00 inactivated<sup>1</ sup> diphtheria/pertussi 2014-04-23 Completed [facility] [place] s, acel/tetanus 06:00:00 adult<sup>3</sup> diphtheria/pertussi 2014-04-23 Completed [facility] [place] s, acel/tetanus 06:00:00 adult<sup>1</sup> influenza virus 2014-04-23 Completed [facility] [place] vaccine, 06:00:00 inactivated<sup>3</ sup> diphtheria/pertussi 2014-04-23 Completed Mem[facility] iagladys Vie[place] s, acel/tetanus 06:00:00 adult<sup>3</sup> influenza virus 2014-04-23 Completed [facility] [place] vaccine, 06:00:00 inactivated<sup>1</ sup> diphtheria/pertussi 2014-04-23 Completed Mem[facility] iagladys Vie[place] s, acel/tetanus 06:00:00 adult<sup>1</sup> influenza virus 2014-04-23 Completed [facility] [place] vaccine, 06:00:00 inactivated<sup>3</ sup> diphtheria/pertussi 2014-04-23 Completed [facility] [place] s, acel/tetanus 06:00:00 adult<sup>3</sup> influenza virus 2014-04-23 Completed [facility] [place] vaccine, 06:00:00 inactivated<sup>1</ sup> diphtheria/pertussi 2014-04-23 Completed [facility] [place] s, acel/tetanus 06:00:00 adult<sup>1</sup> influenza virus 2014-04-23 Completed [facility] [place] vaccine, 06:00:00 inactivated<sup>3</ sup> diphtheria/pertussi 2014-04-23 Completed [facility] [place] s, acel/tetanus 06:00:00 adult<sup>3</sup> influenza virus 2014-04-23 Completed [facility] [place] vaccine, 06:00:00 inactivated<sup>1</ sup> diphtheria/pertussi 2014-04-23 Completed [facility] [place] s, acel/tetanus 06:00:00 adult<sup>1</sup> influenza virus 2014-04-23 Completed [facility] vaccine, 06:00:00 inactivated<sup>3</ sup> diphtheria/pertussi 2014-04-23 Completed [facility] [place] s, acel/tetanus 06:00:00 adult<sup>3</sup> influenza virus 2014-04-23 Completed [facility] [place] vaccine, 06:00:00 inactivated<sup>1</ sup> diphtheria/pertussi 2014-04-23 Completed [facility] [place] s, acel/tetanus 06:00:00 adult<sup>1</sup> influenza virus 2014-04-23 Completed [facility] vaccine, 06:00:00 inactivated<sup>3</ sup> Hx influenza 2013-04-24 [...] 15:42:20 <sup>2</sup> influenza virus 2013-04-24 Completed [facility] [place] vaccine, 06:00:00 inactivated<sup>2</ sup> influenza virus 2013-04-24 Completed [facility] [place] vaccine, 06:00:00 inactivated<sup>4</ sup> influenza virus 2013-04-24 Completed [facility] vaccine, 06:00:00 inactivated<sup>2</ sup> influenza virus 2013-04-24 Completed [facility] [place] vaccine, 06:00:00 inactivated<sup>4</ sup> influenza virus 2013-04-24 Completed [facility] [place] vaccine, 06:00:00 inactivated<sup>2</ sup> influenza virus 2013-04-24 Completed [facility] vaccine, 06:00:00 inactivated<sup>4</ sup> influenza virus 2013-04-24 Completed [facility] [place] vaccine, 06:00:00 inactivated<sup>2</ sup> influenza virus 2013-04-24 Completed [facility] [place] vaccine, 06:00:00 inactivated<sup>4</ sup> influenza virus 2013-04-24 [...] hawk 23-valent 15:36:31 vaccine<sup>6</sup> pneumococcal 2012-04-17 Completed [facility] hawk 23-valent 15:36:31 vaccine<sup>5</sup> pneumococcal 2012-04-17 Completed [facility] Her hawk 23-valent 15:36:31 vaccine<sup>6</sup> pneumococcal 2012-04-17 Completed [facility] Her hawk 23-valent 15:36:31 vaccine<sup>5</sup> pneumococcal 2012-04-17 Completed [facility] Her hawk 23-valent 15:36:31 vaccine<sup>6</sup> pneumococcal 2012-04-17 Completed [facility] Her hawk 23-valent 15:36:31 vaccine<sup>5</sup> pneumococcal 2012-04-17 Completed [facility] Her hawk 23-valent 15:36:31 vaccine<sup>6</sup> pneumococcal 2012-04-17 Completed [facility] Her hawk 23-valent 15:36:31 vaccine<sup>5</sup> pneumococcal 2012-04-17 Completed [facility] hawk 23-valent 15:36:31 vaccine<sup>6</sup> pneumococcal 2012-04-17 Completed [facility] hawk 23-valent 15:36:31 vaccine<sup>5</sup> influenza virus Unknown Completed [facility] vaccine, inactivated pneumococcal Unknown Completed [facility] 13-valent vaccine influenza virus Unknown Completed [facility] vaccine, inactivated influenza virus Unknown Completed [facility] vaccine, inactivated influenza virus Unknown Completed [facility] vaccine[facility] inactivated influenza virus Unknown Completed [facility] vaccine, inactivated diphtheria/pertussi Unknown Completed [facility] s, acel/tetanus adult<sup>3</sup> influenza virus Unknown Completed [facility] vaccine, inactivated<sup>1</ sup> diphtheria/pertussi Unknown Completed [facility] [place] s, acel/tetanus adult<sup>1</sup> influenza virus Unknown Completed [facility] vaccine, inactivated<sup>3</ sup> Hx influenza Unknown Completed [facility] vaccine-unspecified <sup>4</sup> Hx influenza Unknown Completed [facility] vaccine-unspecified <sup>2</sup> influenza virus Unknown Completed [facility] vaccine, inactivated<sup>2</ sup> influenza virus Unknown Completed [facility] vaccine, inactivated<sup>4</ sup> zoster vaccine Unknown Completed [facility] live<sup>5</sup> zoster vaccine Unknown Completed [facility] H ermann live<sup>6</sup> pneumococcal Unknown Completed [facility] 23-valent vaccine<sup>6</sup> pneumococcal Unknown Completed [facility] 23-valent vaccine<sup>5</sup> Vital Signs Vital Name Observation Time [...] Diastolic (mm Hg) 2019-10-01 15:14:00 Mem [facility] [place] Heart Rate 2019-10-01 15:14:00 [facility] [place] Respitory Rate 2019-10-01 15:14:00 Mem[facility] al [place] Temperature Oral (F) 2019-10-01 15:14:00 97.8 F [facility] Systolic (mm Hg) 2019-08-14 15:17:00 Vasile rial [place] Diastolic (mm Hg) 2019-08-14 15:17:00 Mem o[facility] [place] Heart Rate 2019-08-14 15:17:00 [facility] Weight 2019-08-14 15:17:00 [facility] [place] Height 2019-07-22 22:18:00 160.02 cm [facility] Weight 2019-07-22 22:18:00 [facility] BMI Calculated 2019-07-22 22:18:00 [facility] Systolic (mm Hg) 2019-07-22 22:18:00 Vasile rial [place] Diastolic (mm Hg) 2019-07-22 22:18:00 [facility] [place] Heart Rate 2019-07-22 22:18:00 [facility] [place] Temperature Oral (F) 2019-07-22 22:18:00 97.6 F [facility] Systolic (mm Hg) 2019-06-17 19:58:00 Vasile [facility] [place] Diastolic (mm Hg) 2019-06-17 19:58:00 [facility] Heart Rate 2019-06-17 19:58:00 [facility] Respitory Rate 2019-06-17 19:58:00 [facility] Height 2019-06-17 19:58:00 165.1 cm [facility] [place] Weight 2019-06-17 19:58:00 [facility] BMI Calculated 2019-06-17 19:58:00 [facility] Height 2019-05-16 16:27:00 160.02 cm [facility] Weight 2019-05-16 16:27:00 [facility] BMI Calculated 2019-05-16 16:27:00 [facility] Systolic (mm Hg) 2019-05-16 16:27:00 [facility] Diastolic (mm Hg) 2019-05-16 16:27:00 [facility] Heart Rate 2019-05-16 16:27:00 [facility] [place] Temperature Oral (F) 2019-05-16 16:27:00 97.9 F [...] Systolic (mm Hg) 2019-03-27 18:17:00 Vasile [facility] [place] Diastolic (mm Hg) 2019-03-27 18:17:00 [facility] Heart Rate 2019-03-27 18:17:00 [facility] [place] Respitory Rate 2019-03-27 18:17:00 [facility] [place] Temperature Oral (F) 2019-03-27 18:17:00 98.3 F [facility] Height 2019-03-27 18:17:00 165.1 cm [facility] [place] Weight 2019-03-27 18:17:00 [facility] BMI Calculated 2019-03-27 18:17:00 [facility] [place] Systolic (mm Hg) 2019-02-27 14:53:00 [facility] Diastolic (mm Hg) 2019-02-27 14:53:00 [facility] Heart Rate 2019-02-27 14:53:00 [facility] [place] Weight 2019-02-27 14:53:00 [facility] Systolic (mm Hg) 2019-01-01 13:09:00 [facility] Diastolic (mm Hg) 2019-01-01 13:09:00 [facility] [place] Temperature Oral (F) 2019-01-01 13:09:00 98.0 F [facility] [place] Heart Rate 2019-01-01 13:09:00 [facility] Weight 2019-01-01 13:09:00 [facility] BMI Calculated 2018-11-15 14:02:00 [facility] Weight 2018-11-15 14:02:00 [facility] [place] Systolic (mm Hg) 2018-11-15 14:02:00 [facility] Diastolic (mm Hg) 2018-11-15 14:02:00 [facility] [place] Temperature Oral (F) 2018-11-15 14:02:00 97.6 F [facility] [place] Heart Rate 2018-11-15 14:02:00 [facility] Height 2018-11-15 14:02:00 160.02 cm [facility] BMI Calculated 2018-09-23 15:26:00 [facility] Weight 2018-09-23 15:26:00 [facility] [place] Height 2018-09-23 15:26:00 160.02 cm [facility] Temperature Oral (F) 2018-09-23 15:26:00 97.5 F [facility] Heart Rate 2018-09-23 15:26:00 [facility] [place] Respitory Rate 2018-09-23 15:26:00 [facility] [place] Systolic (mm Hg) 2018-09-23 15:26:00 Vasile [facility] [place] Diastolic (mm Hg) 2018-09-23 15:26:00 [facility] [place] Weight 2018-09-10 21:14:00 [facility] [place] Temperature Oral (F) 2018-09-10 21:14:00 97.6 F [facility] [place] Respitory Rate 2018-09-10 21:14:00 [facility] Heart Rate 2018-09-10 21:14:00 [facility] Systolic (mm Hg) 2018-09-10 21:14:00 [facility] Diastolic (mm Hg) 2018-09-10 21:14:00 [facility] [place] Height 2018-08-01 14:26:00 160.02 cm [facility] Weight 2018-08-01 14:26:00 [facility] BMI Calculated 2018-08-01 14:26:00 [facility] Respitory Rate 2018-08-01 14:26:00 [facility] Heart Rate 2018-08-01 14:26:00 [facility] Systolic (mm Hg) 2018-08-01 14:26:00 [facility] [place] Diastolic (mm Hg) 2018-08-01 14:26:00 [facility] [place] Systolic (mm Hg) 2018-07-09 14:06:00 [facility] Diastolic (mm Hg) 2018-07-09 14:06:00 [facility] Heart Rate 2018-07-09 14:06:00 [facility] [place] Temperature Oral (F) 2018-07-09 14:06:00 98.4 F [facility] [place] Weight 2018-07-09 14:06:00 [facility] [place] Systolic (mm Hg) 2018-07-08 16:29:00 [facility] [place] Diastolic (mm Hg) 2018-07-08 16:29:00 [facility] [place] Heart Rate 2018-07-08 16:29:00 [facility] [place] Height 2018-07-08 16:29:00 165.1 cm [facility] Weight 2018-07-08 16:29:00 [facility] BMI Calculated 2018-07-08 16:29:00 [facility] Weight 2018-05-16 15:56:00 [facility] [place] Respitory Rate 2018-05-16 15:56:00 [facility] Temperature Oral (F) 2018-05-16 15:56:00 98.2 F [facility] Heart Rate 2018-05-16 15:56:00 [facility] Systolic (mm Hg) 2018-05-16 15:56:00 [facility] Diastolic (mm Hg) 2018-05-16 15:56:00 [facility] BMI Calculated 2018-03-28 18:21:00 [facility] Weight 2018-03-28 18:21:00 [facility] [place] Height 2018-03-28 18:21:00 160.02 cm [facility] [place] Heart Rate 2018-03-28 18:21:00 [facility] Temperature Oral (F) 2018-03-28 18:21:00 98.2 F [facility] Systolic (mm Hg) 2018-03-28 18:21:00 Vasile [facility] [place] Diastolic (mm Hg) 2018-03-28 18:21:00 [facility] [place] Weight 2018-03-25 14:36:00 [facility] [place] BMI Calculated 2018-03-25 14:36:00 [facility] Height 2018-03-25 14:36:00 160.02 cm [facility] Temperature Oral (F) 2018-03-25 14:36:00 97.8 F [facility] [place] Heart Rate 2018-03-25 14:36:00 [facility] [place] Respitory Rate 2018-03-25 14:36:00 [facility] Systolic (mm Hg) 2018-03-25 14:36:00 [facility] Diastolic (mm Hg) 2018-03-25 14:36:00 [facility] [place] BMI Calculated 2018-03-08 14:35:00 [facility] [place] Weight 2018-03-08 14:35:00 [facility] [place] Heart Rate 2018-03-08 14:35:00 [facility] [place] Temperature Oral (F) 2018-03-08 14:35:00 97.8 F [facility] [place] Systolic (mm Hg) 2018-03-08 14:35:00 [facility] Diastolic (mm Hg) 2018-03-08 14:35:00 [facility] Height 2018-03-08 14:35:00 165.1 cm [facility] [place] Weight 2018-03-05 20:47:00 [facility] [place] Systolic (mm Hg) 2018-03-05 20:47:00 [facility] Diastolic (mm Hg) 2018-03-05 20:47:00 [facility] Heart Rate 2018-03-05 20:47:00 [facility] Temperature Oral (F) 2018-03-05 20:47:00 98.3 F [facility] Respitory Rate 2018-03-05 20:47:00 [facility] [place] Height 2018-02-13 19:12:00 161.29 cm [facility] [place] Temperature Oral (F) 2018-02-13 19:12:00 98.1 F [facility] Heart Rate 2018-02-13 19:12:00 [facility] Respitory Rate 2018-02-13 19:12:00 [facility] Systolic (mm Hg) 2018-02-13 19:12:00 [facility] [place] Diastolic (mm Hg) 2018-02-13 19:12:00 [facility] Weight 2018-02-13 19:12:00 [facility] [place] BMI Calculated 2018-02-13 19:12:00 [facility] Weight 2017-10-31 16:55:00 [facility] Height 2017-10-31 16:55:00 165.1 cm [facility] BMI Calculated 2017-10-31 16:55:00 [facility] [place] Heart Rate 2017-10-31 16:55:00 [facility] [place] Temperature Oral (F) 2017-10-31 16:55:00 98.8 F [facility] Systolic (mm Hg) 2017-10-31 16:55:00 [facility] Diastolic (mm Hg) 2017-10-31 16:55:00 [facility] BMI Calculated 2017-09-19 14:28:00 [facility] [place] Weight 2017-09-19 14:28:00 [facility] Height 2017-09-19 14:28:00 162.56 cm [facility] Systolic (mm Hg) 2017-09-19 14:28:00 [facility] Diastolic (mm Hg) 2017-09-19 14:28:00 [facility] Respitory Rate 2017-09-19 14:28:00 [facility] Heart Rate 2017-09-19 14:28:00 [facility] [place] Temperature Oral (F) 2017-09-19 14:28:00 98.2 F [facility] [place] Weight 2017-08-28 20:25:00 [facility] Heart Rate 2017-08-28 20:25:00 [facility] [place] Systolic (mm Hg) 2017-08-28 20:25:00 [facility] [place] Diastolic (mm Hg) 2017-08-28 20:25:00 [facility] [place] Systolic (mm Hg) 2017-08-28 19:58:00 [facility] Diastolic (mm Hg) 2017-08-28 19:58:00 [facility] [place] Heart Rate 2017-08-28 19:58:00 [facility] [place] Weight 2017-08-28 19:58:00 [facility] [place] Weight 2017-08-03 20:19:00 [facility] Temperature Oral (F) 2017-08-03 20:19:00 97.9 F [facility] Systolic (mm Hg) 2017-08-03 20:19:00 [facility] [place] Diastolic (mm Hg) 2017-08-03 20:19:00 [facility] Heart Rate 2017-08-03 20:19:00 [facility] Temperature Oral (F) 2017-07-25 19:39:00 97.4 F [facility] [place] Systolic (mm Hg) 2017-07-25 19:39:00 [facility] [place] Diastolic (mm Hg) 2017-07-25 19:39:00 [facility] Heart Rate 2017-07-25 19:39:00 [facility] [place] Weight 2017-07-25 19:39:00 [facility] Height 2017-06-28 15:25:00 165.1 cm [facility] Weight 2017-06-28 15:25:00 [facility] [place] BMI Calculated 2017-06-28 15:25:00 [facility] [place] Heart Rate 2017-06-28 15:25:00 [facility] [place] Systolic (mm Hg) 2017-06-28 15:25:00 [facility] Diastolic (mm Hg) 2017-06-28 15:25:00 [facility] [place] Temperature Oral (F) 2017-06-14 14:26:00 97.8 F [facility] [place] Weight 2017-06-14 14:26:00 [facility] [place] Systolic (mm Hg) 2017-06-14 14:26:00 [facility] Diastolic (mm Hg) 2017-06-14 14:26:00 [facility] [place] Heart Rate 2017-06-14 14:26:00 [facility] [place] Weight 2017-04-27 15:20:00 [facility] [place] Height 2017-04-27 15:20:00 163.83 cm [facility] [place] BMI Calculated 2017-04-27 15:20:00 [facility] Systolic (mm Hg) 2017-04-27 15:20:00 Vasile [facility] [place] Diastolic (mm Hg) 2017-04-27 15:20:00 [facility] orial [place] Temperature Oral (F) 2017-04-27 15:20:00 98.5 F [facility] [place] Heart Rate 2017-04-27 15:20:00 [facility] Respitory Rate 2017-04-27 15:20:00 [facility] [place] Procedures Procedure Date / Time Performing Clinician Source Performed SARS-COV-2 COVID-19 2021-03-29 20:09:48 Doctor Unassigned, No [facility] [place] VACCINE,0.3ML,IM Name [facility] ([employer]) Mammogram 2018-07-08 06:00:00 [facility] Her hawk Cataract surgery 2018-06-24 06:00:00 [facility] Jared rmann Removal impacted 2018-03-08 15:45:00 [facility] Jared rmann cerumen requiring instrumentation, unilateral Colonoscopy<sup>1</sup> 2016-07-19 06:00:00 [facility] [place] Procedure on 2013-10-09 05:00:00 [facility] Her hawk wrist<sup>2</sup> Colonoscopy 2012-12-18 05:00:00 [facility] Her hawk CEIOL - Cataract 2011-02-13 05:00:00 [facility] Jared rmann extraction and insertion of intraocular lens<sup>3</sup> Arthroscopy of 2010-06-11 00:00:00 [facility] Her hawk knee<sup>4</sup> CRIS BSO - Total 2000-06-11 00:00:00 [facility] Her hawk abdominal hysterectomy and bilateral salpingo-oophorectomy<s up>5</sup> Bunionectomy<sup>6</sup [facility] > Rotator cuff [facility] repair<sup>8</sup> Pneumococcal [facility] vaccination<sup>7</sup> Simple dental [facility] extraction<sup>9</sup> Plan of Care Planned Activity Planned Date Details Comments Source Future Scheduled 2023-02-[address] [facility] 00:00:00 (Season Ended) [code = Medic al Center INFLUENZA VACCINE (Season Ended)] Future Scheduled 2023-02-09 Influenza Vaccine (#1) [facility] 00:00:00 [code = Influenza Medical Ce nter Vaccine (#1)] Future Scheduled 2022-06-[address] [facility] DXA [facility] Test 00:00:00 SCAN] [facility] Center Future Scheduled 1940 DXA SCAN [code = DXA [facility] Test 00:00:00 SCAN] Medical Center Encounters Start End Encounter Admission Attending Care Care Encounter Source Date/Time Date/Time Type Type Clinicians Facility Department ID 2021-03-16 Inpatient VICK, [facility] [id number] [facility] 00:27:59 DARRICK 2023-04-08 2023-04-08 Outpatient [id number] PRIV PRIV [id number] [facility] 00:00:00 00:00:00 diyala_S [id number] Medic al 2021-11-05 2021-11-05 Telephone Nurse, Reid [facility] [id number] Univers 00:00:00 00:00:00 Db Urgent HEALTH 350.1.13.10 [place] Care [place] 4.2.7.2.686 Lanre as BILL?BLEA [phone] [address] OFFICE [facility] 2021-11-04 2021-11-04 Laboratory Only, Reid Db Test [facility] 1.2.8 40.114 [id number] Univers 11:30:00 11:45:00 Only Quyen Ramosanda HEALTH 350.1.13.10 ity of [facility] 4.2.7.2.686 Lanre as BILL?BLEA [phone] [address] 2021-11-04 2021-11-04 Outpatient Josh RAMOS [facility] [id number] Univers 11:30:00 11:30:00 BEL cintron [facility] 2021-03-29 2021-03-29 Outpatient R AUDRA [facility] [id number] Univers 15:30:00 15:30:00 ALEK itdonald [facility] 2021-03-29 2021-03-29 Imm/Inj Nurse, Adc Pob Immunization [facility] 1.2.840.114 [id number] Univers 15:09:08 15:09:19 Visit Isac Zhumendoza Orteganicola Avalos 350.1.13 .10 [place] [phone] Nh dical [address] 2021-01-28 2021-01-28 Letter DMITRY Arrieta 1.2.840.114 [id number] Univers 00:00:00 00:00:00 (Out) Chantale ZAMORA 350.1.13.10 it y of [facility] 4.2.7.2.686 Lanre as [phone] [facility] [address] 2021-01-27 2021-01-27 Outpatient Josh HERNANDEZ [facility] [id number] Univers 13:35:00 13:35:00 CARLO itdonald [facility] 2021-01-27 2021-01-27 Letter Doctor ANDRES 1.2.840.114 [id number] Univers 00:00:00 00:00:00 (Out) UnassignedNOAH 350.1.13.10 ity of [place] [facility] 4.2.7.2.686 [place] as [phone] [address] 2021-01-27 2021-01-27 Letter Doctor ANDRES 1.2.840.114 [id number] Univers 00:00:00 00:00:00 (Out) UnassignedNOAH 350.1.13.10 ity of [place] [facility] 4.2.7.2.686 Lanre as [phone] [address] 2020-01-07 2020-01-07 Outpatient EL [facility] [id number] [facility] 00:00:00 00:00:00 2019-11-25 2019-11-25 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 [facility] Family 4 [id number] Memoria 14:15:00 14:15:00 Pre-Reg r Medicine 90 l Edwin [place] 2019-11-25 2019-11-25 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 [facility] Family 4 [id number] Memoria 14:15:00 14:15:00 Pre-Reg r Medicine 90 gladys [place] 2019-11-25 2019-11-25 Outpatient MHIE MHIE [id number] Memoria 09:15:00 09:15:00 89 gladys [place] 2019-11-25 2019-11-25 [facility] [id number] 09:15:00 09:15:00 Mar Haider 2019-11-18 2019-11-18 Outpatient MHIE MHIE [id number] Memoria 08:15:00 08:15:00 91 gladys V[place] 2019-11-18 2019-11-18 Outpatient MHIE MHIE [id number] Memoria 08:15:00 08:15:00 91 gladys [place] 2019-10-01 2019-10-02 [place] [id number] Memoria 14:45:00 04:59:59 r Cardiology 83 gladys Pineda [place] 2019-10-01 2019-10-02 [place] [id number] Memoria 14:45:00 04:59:59 r Cardiology 83 gladys [place] 2019-10-01 2019-10-01 Outpatient Trent L MG [facility] [id number] 09:45:00 23:59:59 Chrissy 82 2019-10-01 2019-10-01 Outpatient MHIE MHIE [id number] Memoria 09:45:00 09:45:00 82 gladys [place] 2019-09-29 2019-10-01 Phone nullFlavo MG [id number] Memoria 16:13:37 04:59:59 Message r Cardiology 15 gladys Santanaann 2019-09-29 2019-10-01 Phone nullFlavo MG [id number] Memoria 16:13:37 04:59:59 Message r Cardiology 15 gladys Pineda [place] 2019-09-29 2019-09-30 Outpatient MHMG MG [id number] 11:13:37 23:59:59 15 2019-08-20 2019-08-22 Phone nullFlavo [facility] Family [id number] Memoria 21:25:11 04:59:59 Message r Medicine 14 gladys Vieira 2019-08-20 2019-08-22 Phone nullFlavo [facility] Family [id number] Memoria 21:25:11 04:59:59 Message r Medicine 14 gladys Vieira 2019-08-20 2019-08-21 Outpatient MHMG MHMG [id number] 16:25:11 23:59:59 14 2019-08-14 2019-08-15 Outpatient nullFlavo MG Family 4 [id number] Memoria 15:15:00 05:59:59 r Medicine 85 gladys Vieira 2019-08-14 2019-08-15 Outpatient nullFlavo MG Family 4 [id number] Memoria 15:15:00 05:59:59 r Medicine 85 gladys [place] 2019-08-14 2019-08-14 Outpatient Beth, MHMG MG [id number] 09:15:00 23:59:59 [facility]14 2019-08-14 Outpatient MHIE MHIE [id number] Memoria 09:15:00 09:15:00 84 gladys [place] 2019-08-05 2019-08-05 Outpatient MHIE MHIE [id number] Memoria 07:45:00 07:45:00 85 gladys [place] 2019-08-05 2019-08-05 Outpatient MHIE MHIE [id number] Memoria 07:45:00 07:45:00 85 gladys Vieira 2019-07-22 2019-07-23 Outpatient nullFlavo MG Family 4 [id number] Memoria 22:15:00 05:59:59 r Medicine 89 gladys Vieira 2019-07-22 2019-07-23 Outpatient nullFlavo MG Family 4 [id number] Memoria 22:15:00 05:59:59 r Medicine 89 gladys [place] 2019-07-22 2019-07-22 Outpatient Beth, MHMG MG [id number] 16:15:00 23:59:59 [facility]-07-22 2019-07-22 Outpatient MHIE MHIE [id number] Memoria 16:15:00 16:15:00 88 gladys [place] 2019-07-10 2019-07-10 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 MG 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 4 [id number] Memoria 16:00:00 16:00:00 Pre-Reg r [place] 65 l [place] 2019-07-10 2019-07-10 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 MG 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 4 [id number] Memoria 16:00:00 16:00:00 Pre-Reg r [place] 65 l [place] 2019-07-10 2019-07-10 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 [id number] Memoria 15:30:00 15:30:00 Pre-Reg r Radiology 63 l Edwin [place] 2019-07-10 2019-07-10 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 [id number] Memoria 15:30:00 15:30:00 Pre-Reg r Radiology 63 l Edwin [place] 2019-07-10 2019-07-10 Outpatient MHIE MHIE [id number] Memoria 10:00:00 10:00:00 63 l [place] 2019-07-10 2019-07-10 [place] [id number] 10:00:00 10:00:00 Brendon Mckeon 64 2019-07-10 2019-07-10 [facility] [id number] 09:30:00 09:30:[address] 63 MAMMO 2019-06-17 2019-06-18 [place] [id number] Memoria 20:45:00 05:59:59 r Radiology 88 l Edwin [place] 2019-06-17 2019-06-18 [place] [id number] Memoria 20:45:00 05:59:59 r Radiology 88 l Edwin [place] 2019-06-17 2019-06-18 Outpatient nullFlavo [facility] Family 4 [id number] Memoria 19:45:00 05:59:59 r Medicine 87 gladys Pineda [place] 2019-06-17 2019-06-18 Outpatient nullFlavo [facility] Family 4 [id number] Memoria 19:45:00 05:59:59 r Medicine 87 l Edwin [place] 2019-06-17 2019-06-17 [facility] [id number] 14:45:00 23:59:[address] 88 XRAY 2019-06-17 2019-06-17 [facility] [id number] 13:45:00 23:59:59 José Miguel 87 Darci 2019-06-17 2019-06-17 Outpatient MHIE MHIE [id number] Memoria 14:45:00 14:45:00 87 gladys V[place] 2019-06-17 2019-06-17 Outpatient MHIE MHIE [id number] Memoria 13:45:00 13:45:00 86 gladys Vie[place] 2019-05-16 2019-05-17 Outpatient nullFlavo [facility] Family 4 [id number] Memoria 16:00:00 05:59:59 r Medicine 84 gladys [place] 2019-05-16 2019-05-17 Outpatient nullFlavo [facility] Family 4 [id number] Memoria 16:00:00 05:59:59 r Medicine 84 gladys [place] 2019-05-16 2019-05-16 Outpatient Beth, [facility] MH[facility] [id number] 10:00:00 23:59:59 Mar Tim Meliza 2019-05-16 2019-05-16 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 [facility] Family 4 [id number] Memoria 16:00:00 16:00:00 Pre-Reg r Medicine 74 gladys [place] 2019-05-16 2019-05-16 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 [facility] Family 4 [id number] Memoria 16:00:00 16:00:00 Pre-Reg r Medicine 75 gladys [place] 2019-05-16 2019-05-16 Outpatient MHIE MHIE [id number] Memoria 10:00:00 10:00:00 83 gladys V[place] 2019-05-16 2019-05-16 Outpatient MHIE MHIE [id number] Memoria 10:00:00 10:00:00 74 gladys [place] 2019-05-16 2019-05-16 Outpatient Beth, [facility] MH[facility] [id number] 10:00:00 10:00:00 Mar Haider 2019-05-09 2019-05-09 Outpatient MHIE MHIE [id number] Memoria 07:10:00 07:10:00 75 gladys [place] 2019-05-09 2019-05-09 Outpatient MHIE MHIE [id number] Memoria 07:10:00 07:10:00 75 gladys SantanaDariel 2019-04-09 2019-04-11 Phone nullFlavo [facility] Family [id number] Memoria 14:52:12 04:59:59 Message r Medicine 13 gladys Vieira 2019-04-09 2019-04-11 Phone nullFlavo [facility] Family [id number] Memoria 14:52:12 04:59:59 Message r Medicine 13 gladys V[place] 2019-04-09 2019-04-10 Outpatient MHMG MHMG [id number] 09:52:12 23:59:59 13 2019-04-02 2019-04-03 Outpatient nullFlavo [facility] [id number] Memoria 14:15:00 04:59:59 r Cardiology 81 gladys [place] 2019-04-02 2019-04-03 Outpatient nullFlavo [facility] [id number] Memoria 14:15:00 04:59:59 r Cardiology 81 gladys [place] 2019-04-02 2019-04-02 Outpatient Trent L [facility] MH[facility] [id number] 09:15:00 23:59:59 Chrissy 80 2019-04-02 2019-04-02 Outpatient MHIE MHIE [id number] Memoria 09:15:00 09:15:00 80 gladys V[place] 2019-03-28 2019-03-28 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 [facility] [id number] Memoria 15:15:00 15:15:00 Pre-Reg r Cardiology 80 gladys V[place] 2019-03-28 2019-03-28 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 [facility] [id number] Memoria 15:15:00 15:15:00 Pre-Reg r Cardiology 80 gladys V[place] 2019-03-28 2019-03-28 Outpatient MHIE MHIE [id number] Memoria 10:15:00 10:15:00 79 gladys Vieira 2019-03-28 2019-03-28 Outpatient Trent L [facility] MH[facility] [id number] 10:15:00 10:15:00 Chrissy 80 2019-03-27 2019-03-28 Outpatient nullFlavo [facility] Family 4 [id number] Memoria 18:00:00 04:59:59 r Medicine 82 gladys Vieira 2019-03-27 2019-03-28 Outpatient nullFlavo [facility] Family 4 [id number] Memoria 18:00:00 04:59:59 r Medicine 82 gladys Vieira 2019-03-27 2019-03-27 Outpatient Nwani, [facility] MH[facility] [id number] 13:00:00 23:59:59 José Miguelmanav Bejarano 2019-03-27 2019-03-27 Outpatient MHIE MHIE [id number] Memoria 13:00:00 13:00:00 81 gladys Vie[place] 2019-03-24 2019-03-24 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 [facility] [id number] Memoria 13:45:00 13:45:00 Pre-Reg r Cardiology 73 gladys Vieira 2019-03-24 2019-03-24 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 [facility] [id number] Memoria 13:45:00 13:45:00 Pre-Reg r Cardiology 73 gladys Vieira 2019-03-24 2019-03-24 Outpatient MHIE MHIE [id number] Memoria 08:45:00 08:45:00 73 gladys Vieira 2019-03-24 2019-03-24 Outpatient Gladys Newman MG MG [id number] 08:45:00 08:45:00 Chrissy Fong 2019-03-17 2019-03-17 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 [facility] Family 4 [id number] Memoria 19:45:00 19:45:00 Pre-Reg r Medicine 79 gladys Vieira 2019-03-17 2019-03-17 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 [facility] Family 4 [id number] Memoria 19:45:00 19:45:00 Pre-Reg r Medicine 78 gladys Vieira 2019-03-17 2019-03-17 Outpatient Espinoza, MG MG [id number] 14:45:00 14:45:00 Luca 2019-03-17 2019-03-17 Outpatient NICOLEIE MHIE [id number] Memoria 13:30:00 13:30:00 78 gladys V[place] 2019-02-27 2019-02-28 Outpatient nullFlavo [facility] Family 4 [id number] Memoria 15:15:00 04:59:59 r Medicine 78 gladys Vieira 2019-02-27 2019-02-28 Outpatient nullFlavo [facility] Family 4 [id number] Memoria 15:15:00 04:59:59 r Medicine 78 gladys V[place]ira 2019-02-27 2019-02-27 Outpatient Beth MG MG [id number] 10:15:00 23:59:59 Mar 77 Meliza 2019-02-27 2019-02-27 Outpatient MHIE MHIE [id number] Memoria 10:15:00 10:15:00 77 gladys Vieira 2019-01-01 2019-01-02 Outpatient nullFlavo [facility] Family 4 [id number] Memoria 13:30:00 04:59:59 r Medicine 76 gladys Vieira 2019-01-01 2019-01-02 Outpatient nullFlavo [facility] Family 4 [id number] Memoria 13:30:00 04:59:59 r Medicine 76 gladys Vieira 2019-01-01 2019-01-01 Outpatient MHMG MH[facility] [id number] 08:30:00 23:59:59 76 2019-01-01 2019-01-01 Outpatient MHIE MHIE [id number] Memoria 08:30:00 08:30:00 76 gladys Vieiar 2018-11-15 2018-11-16 Outpatient nullFlavo [facility] Family 4 [id number] Memoria 14:00:00 04:59:59 r Medicine 72 gladys Vieira 2018-11-15 2018-11-16 Outpatient nullFlavo [facility] 4 [id number] Memoria 14:00:00 04:59:59 r Medicine 72 gladys Vieira 2018-11-15 2018-11-15 [id number] 09:00:00 23:59:59 Onofre Bonner 72 2018-11-15 2018-11-15 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 [facility] 4 [id number] Memoria 14:00:00 14:00:00 Pre-Reg r Medicine 60 gladys Vieira 2018-11-15 2018-11-15 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 [facility] 4 [id number] Memoria 14:00:00 14:00:00 Pre-Reg r Medicine 60 gladys Veiira 2018-11-15 2018-11-15 Outpatient [facility] MHIE [id number] Memoria 09:00:00 09:00:00 72 gladys Vieira 2018-11-15 2018-11-15 Outpatient [facility] MHIE [id number] Memoria 09:00:00 09:00:00 60 gladys Vieira 2018-11-15 2018-11-15 [facility] [id number] 09:00:00 09:00:00 Onofre Kailey Jose 2018-11-08 2018-11-08 Outpatient [facility] MHIE [id number] Memoria 07:00:00 07:00:00 61 gladys Vieira 2018-11-08 2018-11-08 Outpatient [facility]IE [id number] Memoria 07:00:00 07:00:00 61 gladys Vieira 2018-09-23 2018-09-24 [place] [id number] Memoria 15:15:00 04:59:59 r Cardiology 57 gladys Vieira 2018-09-23 2018-09-24 [place] [id number] Memoria 15:15:00 04:59:59 r Cardiology 57 gladys Santanaann 2018-09-23 2018-09-23 Outpatient Gladys Newman [facility] [id number] 10:15:00 23:59:59 Chrissy 57 2018-09-23 2018-09-23 Outpatient MHIE IE [id number] Memoria 10:15:00 10:15:00 57 gladys Vieira 2018-09-10 2018-09-11 [place] [id number] Memoria 21:00:00 04:59:59 r Pulmonology 50 gladys Pineda [place] 2018-09-10 2018-09-11 [place] [id number] Memoria 21:00:00 04:59:59 r Pulmonology 50 gladys Pineda Dariel 2018-09-10 2018-09-10 [id number] 16:00:00 23:59:59 Alan 50 Pinai 2018-09-10 2018-09-10 Outpatient IE IE [id number] Memoria 16:00:00 16:00:00 50 gladys Dariel 2018-08-01 2018-08-02 Outpatient nullFlavo MG Family 4 [id number] Memoria 14:30:00 05:59:59 r Medicine 71 gladys Pineda Dariel 2018-08-01 2018-08-02 Outpatient nullFlavo MG Family 4 [id number] Memoria 14:30:00 05:59:59 r Medicine 71 gladys Pineda Dariel 2018-08-01 2018-08-01 Outpatient [place], MHMG MHMG [id number] 08:30:00 23:59:59 [place] 71 me [place] 2018-08-01 2018-08-01 Outpatient MHIE MHIE [id number] Memoria 08:30:00 08:30:00 71 gladys Vieira 2018-07-11 2018-07-12 Outpt Diag nullFlavo [facility] [id number] Memoria 14:27:00 05:59:00 Services r Outpatient 02 l Imaging Dariel Chana 2018-07-11 2018-07-12 Outpt Diag nullFlavo [facility] [id number] Memoria 14:27:00 05:59:00 Services r Outpatient 02 l Imaging Dariel Chana 2018-07-11 2018-07-11 Outpatient Sangalli, MH29 MH29 [id number] 08:27:00 23:59:00 Brendon Mike 2018-07-11 2018-07-11 Outpatient Sangalli, MH29 MH29 [id number] 08:27:00 23:59:00 Brendon Mike 2018-07-09 2018-07-10 Outpatient nullFlavo MHMG Family 4 [id number] Memoria 15:30:00 05:59:59 [facility] [place] 2018-07-09 2018-07-10 Outpatient nullFlavo MHMG Family 4 [id number] Memoria 15:30:00 05:59:59 r Medicine [facility] [place] 2018-07-09 2018-07-10 Outpatient nullFlavo MHMG Family 4 [id number] Memoria 14:00:00 05:59:59 r Medicine 67 [facility] 2018-07-09 2018-07-10 Outpatient nullFlavo MHMG Family 4 [id number] Memoria 14:00:00 05:59:59 r Medicine [facility] [place] 2018-07-09 2018-07-09 Outpatient VISIT, MHMG MHMG [id number] 09:30:00 23:59:59 [address]URSE STWH Iris TAY 2018-07-09 2018-07-09 Outpatient VISIT, MHMG MHMG [id number] 09:30:00 23:59:59 NURSE STWH 71 DEXA 2018-07-09 2018-07-09 Outpatient MHMG MHMG [id number] 08:00:00 23:59:59 66 2018-07-09 2018-07-09 Outpatient MHMG MHMG [id number] 08:00:00 23:59:59 67 2018-07-09 2018-07-09 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 MHMG [id number] Memoria 15:30:00 15:30:00 Pre-Reg r Radiology 69 gladys Vieira 2018-07-09 2018-07-09 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 MHMG [id number] Memoria 15:30:00 15:30:00 Pre-Reg r Radiology 68 gladys Vieira 2018-07-09 2018-07-09 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 MHMG [id number] Memoria 15:30:00 15:30:00 Pre-Reg r Radiology 67 gladys Vieira 2018-07-09 2018-07-09 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 MHMG [id number] Memoria 15:30:00 15:30:00 Pre-Reg r Radiology 65 gladys Vieira 2018-07-09 2018-07-09 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 MHMG [id number] Memoria 15:30:00 15:30:00 Pre-Reg r Radiology 67 gladys Vieira 2018-07-09 2018-07-09 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 MHMG [id number] Memoria 15:30:00 15:30:00 Pre-Reg r Radiology 68 gladys Vieira 2018-07-09 2018-07-09 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 MHMG [id number] Memoria 15:30:00 15:30:00 Pre-Reg r Radiology 65 gladys Vieira 2018-07-09 2018-07-09 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 MHMG [id number] Memoria 15:30:00 15:30:00 Pre-Reg r Radiology 69 gladys Vieira 2018-07-09 2018-07-09 Outpatient MHIE MHIE [id number] Memoria 09:30:00 09:30:00 70 gladys Vieira 2018-07-09 2018-07-09 Outpatient MHIE MHIE [id number] Memoria 09:30:00 09:30:00 67 gladys Vieira 2018-07-09 2018-07-09 Outpatient MHIE MHIE [id number] Memoria 09:30:00 09:30:00 69 gladys Vieira 2018-07-09 2018-07-09 Outpatient MHIE MHIE [id number] Memoria 09:30:00 09:30:00 68 gladys Dariel 2018-07-09 2018-07-09 Outpatient MHIE MHIE [id number] Memoria 09:30:00 09:30:00 65 gladys [place] 2018-07-09 2018-07-09 Outpatient VISIT, MHMG MHMG [id number] 09:30:00 09:30:00 NURSE STWH 67 DEXA 2018-07-09 2018-07-09 Outpatient VISIT, MHMG MHMG [id number] 09:30:00 09:30:00 NURSE STWH 65 DEXA 2018-07-09 2018-07-09 Outpatient VISIT, MHMG MHMG [id number] 09:30:00 09:30:00 NURSE STWH 69 DEXA 2018-07-09 2018-07-09 Outpatient VISIT, MHMG MHMG [id number] 09:30:00 09:30:00 NURSE STWH 70 DEX 2018-07-09 2018-07-09 Outpatient VISIT, MHMG MHMG [id number] 09:30:00 09:30:00 NURSE STWH 66 DEX 2018-07-09 2018-07-09 Outpatient VISIT, MHMG MHMG [id number] 09:30:00 09:30:00 NURSE STWH 68 DEXA 2018-07-09 2018-07-09 Outpatient VISIT, MHMG MHMG [id number] 09:30:00 09:30:00 NURSE STWH 69 DEX 2018-07-09 2018-07-09 Outpatient VISIT, MHMG MHMG [id number] 09:30:00 09:30:00 NURSE STWH 70 DEXA 2018-07-09 2018-07-09 Outpatient MHIE MHIE [id number] Memoria 08:00:00 08:00:00 66 gladys Vieira 2018-07-08 2018-07-09 Outpatient nullFlavo MHMG [employer] 4 [id number] Memoria 16:00:00 05:59:59 r Edwin 43 gladys Vieira 2018-07-08 2018-07-09 Outpatient nullFlavo MHMG [employer] 4 [id number] Memoria 16:00:00 05:59:59 r Edwin 43 gladys Vieira 2018-07-08 2018-07-09 Outpatient nullFlavo MHMG Family 4 [id number] Memoria 15:30:00 05:59:59 r Medicine 62 gladys Vieira 2018-07-08 2018-07-09 Outpatient nullFlavo MHMG Family 4 [id number] Memoria 15:30:00 05:59:59 r Medicine 62 gladys Vieira 2018-07-08 2018-07-08 Outpatient Sangalli, MHMG MHMG [id number] 10:00:00 23:59:59 Brendon Mckeon 44 2018-07-08 2018-07-08 Outpatient Sangalli, MHMG MHMG [id number] 10:00:00 23:59:59 Brendon Mckeon 44 2018-07-08 2018-07-08 Outpatient VISIT, MHMG MHMG [id number] 09:30:00 23:59:[address] 63 DEXA 2018-07-08 2018-07-08 Outpatient VISIT, MHMG MHMG [id number] 09:30:00 23:59:[address] 63 DEXA 2018-07-08 2018-07-08 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 MHMG [id number] Memoria 15:30:00 15:30:00 Pre-Reg r Radiology 42 gladys Vieira 2018-07-08 2018-07-08 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 MHMG [id number] Memoria 15:30:00 15:30:00 Pre-Reg r Radiology 42 gladys Vieira 2018-07-08 2018-07-08 Outpatient MHIE MHIE [id number] Memoria 10:00:00 10:00:00 42 gladys Vieira 2018-07-08 2018-07-08 Outpatient MHIE MHIE [id number] Memoria 10:00:00 10:00:00 43 gladys Vieira 2018-07-08 2018-07-08 Outpatient MHIE MHIE [id number] Memoria 09:30:00 09:30:00 62 gladys [place] 2018-07-08 2018-07-08 Outpatient VISIT, MHMG MHMG [id number] 09:30:00 09:30:[address] 43 MAMMO 2018-07-08 2018-07-08 Outpatient VISIT, MHMG MHMG [id number] 09:30:00 09:30:[address] 43 MAMMO 2018-05-16 2018-05-17 Outpatient nullFlavo MHMG Family 4 [id number] Memoria 15:45:00 05:59:59 r Medicine 59 gladys Vieira 2018-05-16 2018-05-17 Outpatient nullFlavo MG Family 4 [id number] Memoria 15:45:00 05:59:59 r Medicine 59 gladys Vieira 2018-05-16 2018-05-16 [id number] 09:45:00 23:59:59 Onofre P 59 2018-05-16 2018-05-16 Outpatient MHIE NICOLEIE [id number] Memoria 09:45:00 09:45:00 59 gladys Vieira 2018-05-09 2018-05-09 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 MG Family 4 [id number] Memoria 14:30:00 14:30:00 Pre-Reg r Medicine 40 gladys Vieira 2018-05-09 2018-05-09 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 MG Family 4 [id number] Memoria 14:30:00 14:30:00 Pre-Reg r Medicine 41 gladys Vieira 2018-05-09 2018-05-09 Outpatient NICOLEIE NICOLEIE [id number] Memoria 08:30:00 08:30:00 40 gladys Vieira 2018-05-09 2018-05-09 [facility] [id number] 08:30:00 08:30:00 Onofre P 41 2018-03-28 2018-03-29 Outpatient nullFlavo MG Family 4 [id number] Memoria 18:15:00 04:59:59 r Medicine 58 gladys Vieira 2018-03-28 2018-03-29 Outpatient nullFlavo MG Family 4 [id number] Memoria 18:15:00 04:59:59 r Medicine 58 gladys Vieira 2018-03-28 2018-03-28 [facility] [id number] 13:15:00 23:59:59 Mar Deborah Haider 2018-03-28 2018-03-28 Outpatient NICOLEIE MHIE [id number] Memoria 13:15:00 13:15:00 58 gladys Vieira 2018-03-25 2018-03-26 [place] [id number] Memoria 14:45:00 04:59:59 r Cardiology 56 gladys Vieira 2018-03-25 2018-03-26 [place] [id number] Memoria 14:45:00 04:59:59 r Cardiology 56 gladys Vieira 2018-03-25 2018-03-25 [facility] [id number] 09:45:00 23:59:59 Chrissy 56 2018-03-25 2018-03-25 Outpatient MHIE NICOLEIE [id number] Memoria 09:45:00 09:45:00 56 gladys Vieira 2018-03-21 2018-03-21 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 [id number] Memoria 14:30:00 14:30:00 Pre-Reg r Cardiology 51 gladys Vieira 2018-03-21 2018-03-21 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 [id number] Memoria 14:30:00 14:30:00 Pre-Reg r Cardiology 51 gladys Vieira 2018-03-21 2018-03-21 Outpatient NICOLEIE SAGAR [id number] Memoria 09:30:00 09:30:00 51 gladys Vieira 2018-03-21 2018-03-21 [facility] [id number] 09:30:00 09:30:00 Chrissy 51 2018-03-08 2018-03-09 [place] [id number] Memoria 14:30:00 04:59:59 r Otolaryngol 55 gladys Santana [place] 2018-03-08 2018-03-09 [place] [id number] Memoria 14:30:00 04:59:59 r Otolaryngol 55 gladys Santana [place] 2018-03-08 2018-03-08 [place] [id number] 09:30:00 23:59:59 Sreekrishna 55 Mahesh 2018-03-08 2018-03-08 Outpatient MHIE MHIE [id number] Memoria 09:30:00 09:30:00 55 gladys Vieira 2018-03-05 2018-03-06 Outpatient nullFlavo MG Family 4 [id number] Memoria 20:15:00 04:59:59 r Medicine 54 gladys Santanaann 2018-03-05 2018-03-06 Outpatient nullFlavo [facility] Family 4 [id number] Memoria 20:15:00 04:59:59 r Medicine 54 gladys Vieira 2018-03-05 2018-03-05 Outpatient Abraham [facility] [id number] 15:15:00 23:59:59 Onofre P 54 2018-03-05 2018-03-05 Outpatient MHIE IE [id number] Memoria 15:15:00 15:15:00 54 gladys Vieira 2018-02-13 2018-02-14 Outpatient nullFlavo [facility] Family 4 [id number] Memoria 18:45:00 04:59:59 r Medicine 53 gladys Vieira 2018-02-13 2018-02-14 Outpatient nullFlavo [facility] Family 4 [id number] Memoria 18:45:00 04:59:59 r Medicine 53 gladys Santanaann 2018-02-13 2018-02-13 Outpatient Abraham [facility] [id number] 13:45:00 23:59:59 Onofre P 53 2018-02-13 2018-02-13 Outpatient IE IE [id number] Memoria 13:45:00 13:45:00 53 [place]ys [place] 2017-10-31 2017-11-01 Outpatient nullFlavo MNA [id number] Memoria 17:00:00 04:59:59 r Neuroscienc 53 l e Mariaelena [facility] 2017-10-31 2017-11-01 Outpatient nullFlavo MNA [id number] Memoria 17:00:00 04:59:59 r Neuroscienc 53 l e Sugar [facility] 2017-10-31 2017-10-31 Outpatient MHMISCHER MHMISCHER [id number] 12:00:00 23:59:59 53 2017-10-31 2017-10-31 Outpatient IE [facility] [id number] Memoria 12:00:00 12:00:00 52 gladys [place] 2017-09-28 2017-09-30 Phone nullFlavo MNA [id number] Memoria 18:18:00 04:59:59 Message r Neuroscienc 12 l e [facility] 2017-09-28 2017-09-30 Phone nullFlavo MNA [id number] Memoria 18:18:00 04:59:59 Message r Neuroscienc 12 l e [facility] 2017-09-28 2017-09-29 Outpatient MHMISCHER MISCHER [id number] 13:18:00 23:59:59 12 2017-09-24 2017-09-26 Phone nullFlavo MHMG Family [id number] Memoria 13:37:00 04:59:59 Message r Medicine 11 gladys Vieira 2017-09-24 2017-09-26 Phone nullFlavo MHMG Family [id number] Memoria 13:37:00 04:59:59 Message r Medicine 11 gladys Vieira 2017-09-24 2017-09-25 Outpatient MHMG MHMG [id number] 08:37:00 23:59:59 11 2017-09-19 2017-09-20 Outpatient nullFlavo MHMG [id number] Memoria 14:15:00 04:59:59 r Cardiology 39 gladys Vieira 2017-09-19 2017-09-20 Outpatient nullFlavo MHMG [id number] Memoria 14:15:00 04:59:59 r Cardiology 40 gladys Vieira 2017-09-19 2017-09-19 Outpatient Mazel, L MHMG MHMG [id number] 09:15:00 23:59:59 Chrissy 40 2017-09-19 2017-09-19 Outpatient Mazel, L MHMG MHMG [id number] 09:15:00 23:59:59 Chrissy 40 2017-09-19 2017-09-19 Outpatient MHIE MHIE [id number] Memoria 09:15:00 09:15:00 39 gladys Vieira 2017-08-28 2017-08-29 Outpatient nullFlavo MHMG Family 4 [id number] Memoria 20:30:00 04:59:59 r Medicine 50 gladys Vieira 2017-08-28 2017-08-29 Outpatient nullFlavo MHMG Family 4 [id number] Memoria 20:30:00 04:59:59 r Medicine 50 gladys Vieira 2017-08-28 2017-08-29 Outpatient nullFlavo MHMG [id number] Memoria 19:30:00 04:59:59 r Pulmonology 34 gladys Vieira 2017-08-28 2017-08-29 Outpatient nullFlavo MHMG [id number] Memoria 19:30:00 04:59:59 r Pulmonology 35 gladys Vieira 2017-08-28 2017-08-28 Outpatient Beth, NICOLEMG MG [id number] 15:30:00 23:59:59 Mar Haider 2017-08-28 2017-08-28 Outpatient Anna Marie, MG MG [id number] 14:30:00 23:59:59 Alan 34 Joseph 2017-08-28 2017-08-28 Outpatient Thrasher, MG MG [id number] 14:30:00 23:59:59 Alan 34 Joseph 2017-08-28 2017-08-28 Outpatient MHIE MHIE [id number] Memoria 15:30:00 15:30:00 49 gladys Vieira 2017-08-28 2017-08-28 Outpatient MHIE MHIE [id number] Memoria 14:30:00 14:30:00 34 gladys Vieira 2017-08-03 2017-08-04 Outpatient nullFlavo MG Family 4 [id number] Memoria 20:00:00 05:59:59 r Medicine 49 gladys Vieira 2017-08-03 2017-08-04 Outpatient nullFlavo MG Family 4 [id number] Memoria 20:00:00 05:59:59 r Medicine 49 gladys Vieira 2017-08-03 2017-08-03 Outpatient Beth MG MG [id number] 14:00:00 23:59:59 Mar Haider 2017-08-03 2017-08-03 Outpatient MHIE MHIE [id number] Memoria 14:00:00 14:00:00 48 gladys Vieira 2017-08-01 2017-08-03 Outside nullFlavo MG [id number] Memoria 21:46:00 05:59:59 Medical r Cardiology 10 gladys Vieira 2017-08-01 2017-08-03 Outside nullFlavo MG [id number] Memoria 21:46:00 05:59:59 Medical r Cardiology 10 l Maxx [place] 2017-08-01 2017-08-02 Outpatient MG MG [id number] 15:46:00 23:59:59 10 2017-07-25 2017-07-26 Outpatient nullFlavo MG Family 4 [id number] Memoria 20:15:00 05:59:59 r Medicine 48 gladys Vieira 2017-07-25 2017-07-26 Outpatient nullFlavo MG Family 4 [id number] Memoria 20:15:00 05:59:59 r Medicine 48 gladys Vieira 2017-07-25 2017-07-26 Outpatient nullFlavo MG Family 4 [id number] Memoria 19:15:00 05:59:59 r Medicine 46 gladys Vieira 2017-07-25 2017-07-26 Outpatient nullFlavo MG Family 4 [id number] Memoria 19:15:00 05:59:59 r Medicine 46 gladys Vieira 2017-07-25 2017-07-25 Outpatient VISIT, MG MG [id number] 14:15:00 23:59:59 NURSE STWH 48 XRAY 2017-07-25 2017-07-25 [id number] 13:15:00 23:59:59 Mar 46 Joser 2017-07-25 2017-07-25 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 [id number] Memoria 20:15:00 20:15:00 Pre-Reg r Radiology 46 gladys Vieira 2017-07-25 2017-07-25 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 [id number] Memoria 20:15:00 20:15:00 Pre-Reg r Radiology 46 gladys Vieira 2017-07-25 2017-07-25 Outpatient MHIE IE [id number] Memoria 14:15:00 14:15:00 46 gladys Vieira 2017-07-25 2017-07-25 Outpatient MHIE IE [id number] Memoria 14:15:00 14:15:00 47 gladys Vieira 2017-07-25 2017-07-25 Outpatient VISIT, MG MG [id number] 14:15:00 14:15:00 NURSE STWH 47 XRAY 2017-07-25 2017-07-25 Outpatient MHIE MHIE [id number] Memoria 13:15:00 13:15:00 45 gladys Vieira 2017-06-28 2017-06-29 Outpatient nullFlavo MG Family 4 [id number] Memoria 16:00:00 05:59:59 r Medicine 44 gladys Santanaann 2017-06-28 2017-06-29 Outpatient nullFlavo MHMG Family 4 [id number] Memoria 16:00:00 05:59:59 r Medicine 45 gladys Pineda [place] 2017-06-28 2017-06-29 Outpatient nullFlavo MHMG [employer] 4 [id number] Memoria 15:00:00 05:59:59 r Edwin 20 gladys [place] 2017-06-28 2017-06-29 Outpatient nullFlavo MHMG [employer] 4 [id number] Memoria 15:00:00 05:59:59 r Edwin 21 gladys [place] 2017-06-28 2017-06-28 Outpatient VISIT, MHMG MHMG [id number] 10:00:00 23:59:59 NURSE STW 45 [facility] 2017-06-28 2017-06-28 Outpatient Sangalli, MHMG MHMG [id number] 09:00:00 23:59:59 Brendon Mckeon 21 2017-06-28 2017-06-28 Outpatient Sangalli, MHMG MHMG [id number] 09:00:00 23:59:59 Brendon Mckeon 21 2017-06-28 2017-06-28 Outpatient Sangalli, MHMG MHMG [id number] 09:00:00 23:59:59 Brendon Mckeon 21 2017-06-28 2017-06-28 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 MHMG [id number] Memoria 16:00:00 16:00:00 Pre-Reg r Radiology 20 gladys Edwin [place] 2017-06-28 2017-06-28 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 MHMG [id number] Memoria 16:00:00 16:00:00 Pre-Reg r Radiology 20 gladys Edwin [place] 2017-06-28 2017-06-28 Outpatient MHIE MHIE [id number] Memoria 10:00:00 10:00:00 20 gladys [place] 2017-06-28 2017-06-28 Outpatient MHIE MHIE [id number] Memoria 10:00:00 10:00:00 44 gladys [place] 2017-06-28 2017-06-28 Outpatient VISIT, MHMG MHMG [id number] 10:00:00 10:00:00 NURSE STWC 20 [facility] 2017-06-28 2017-06-28 Outpatient VISIT, MHMG MHMG [id number] 10:00:00 10:00:00 [facility]SE STWC 20 [facility] 2017-06-28 2017-06-28 Outpatient VISIT, MHMG MHMG [id number] 10:00:00 10:00:00 NURSE STWC 20 [place]AM[place] 2017-06-28 2017-06-28 Outpatient MHIE MHIE [id number] Memoria 09:00:00 09:00:00 20 gladys Vieira 2017-06-21 2017-06-23 Phone nullFlavo MHMG [id number] Memoria 19:39:00 05:59:59 Message r Cardiology 09 gladys Vieira 2017-06-21 2017-06-23 Phone nullFlavo MHMG [id number] Memoria 19:39:00 05:59:59 Message r Cardiology 09 gladys Vieira 2017-06-21 2017-06-22 Outpatient MHMG MHMG [id number] 13:39:00 23:59:59 09 2017-06-14 2017-06-16 Phone nullFlavo MG Family [id number] Memoria 14:53:00 05:59:59 Message r Medicine 08 gladys Vieira 2017-06-14 2017-06-16 Phone nullFlavo MG Family [id number] Memoria 14:53:00 05:59:59 Message r Medicine 08 gladys Vieira 2017-06-14 2017-06-15 Outpatient MHMG MHMG [id number] 08:53:00 23:59:59 08 2017-06-14 2017-06-15 Outpatient nullFlavo MHMG Family 4 [id number] Memoria 14:15:00 05:59:59 r Medicine 42 gladys Vieira 2017-06-14 2017-06-15 Outpatient nullFlavo MHMG Family 4 [id number] Memoria 14:15:00 05:59:59 r Medicine 42 gladys Vieira 2017-06-14 2017-06-14 Outpatient Doran, MHMG MHMG [id number] 08:15:00 23:59:59 Luca 42 2017-06-14 2017-06-14 Outpatient MHIE MHIE [id number] Memoria 08:15:00 08:15:00 41 gladys Vieira 2017-04-27 2017-04-28 Outpatient nullFlavo MHMG Family 4 [id number] Memoria 15:15:00 05:59:59 r Medicine 18 gladys Vieira 2017-04-27 2017-04-28 Outpatient nullFlavo MHMG Family 4 [id number] Memoria 15:15:00 05:59:59 r Medicine 18 gladys Vieira 2017-04-27 2017-04-27 Outpatient Abraham MG MHMG [id number] 09:15:00 23:59:59 Onofre P 18 2017-04-27 2017-04-27 Outpatient MHIE MHIE [id number] Memoria 09:15:00 09:15:00 17 gladys Dariel 2017-03-21 2017-03-21 Outpatient MHIE MHIE [id number] Memoria 09:15:00 09:15:00 32 gladys Dariel 2017-03-21 2017-03-21 Outpatient MHIE MHIE [id number] Memoria 09:15:00 09:15:00 32 gladys Dariel 2017-03-14 2017-03-14 Outpatient MHIE MHIE [id number] Memoria 08:45:00 08:45:00 38 gladys Dariel 2017-03-14 2017-03-14 Outpatient MHIE MHIE [id number] Memoria 08:45:00 08:45:00 38 gladys Dariel 2017-03-14 2017-03-14 Outpatient MHIE MHIE [id number] Memoria 08:30:00 08:30:00 39 gladys Dariel 2017-03-14 2017-03-14 Outpatient MHIE MHIE [id number] Memoria 08:30:00 08:30:00 39 gladys Vieira 2017-03-14 2017-03-14 Outpatient MHIE MHIE [id number] Memoria 08:00:00 08:00:00 37 gladys Dariel 2017-03-14 2017-03-14 Outpatient MHIE MHIE [id number] Memoria 08:00:00 08:00:00 37 gladys Vieira 2017-02-05 2017-02-05 Outpatient MHIE MHIE [id number] Memoria 09:30:00 09:30:00 32 gladys Vieira 2017-02-05 2017-02-05 Outpatient MHIE MHIE [id number] Memoria 09:30:00 09:30:00 31 gladys Vieira 2017-01-24 2017-01-24 Outpatient MHIE MHIE [id number] Memoria 14:30:00 14:30:00 35 l Dariel 2017-01-24 2017-01-24 Outpatient MHIE MHIE [id number] Memoria 14:30:00 14:30:00 35 gladys Dariel 2016-12-19 2016-12-19 Outpatient MHIE MHIE [id number] Memoria 13:30:00 13:30:00 34 gladys Dariel 2016-12-19 2016-12-19 Outpatient MHIE MHIE [id number] Memoria 13:30:00 13:30:00 33 gladys Dariel 2016-11-28 2016-11-28 Outpatient MHIE MHIE [id number] Memoria 12:00:00 12:00:00 31 gladys Dariel 2016-11-28 2016-11-28 Outpatient MHIE MHIE [id number] Memoria 12:00:00 12:00:00 31 gladys Dariel 2016-09-15 2016-09-15 Outpatient MHIE MHIE [id number] Memoria 09:45:00 09:45:00 17 gladys Vieira 2016-09-15 2016-09-15 Outpatient MHIE MHIE [id number] Memoria 09:45:00 09:45:00 17 gladys Vieira 2016-08-07 2016-08-07 Outpatient MHIE MHIE [id number] Memoria 09:45:00 09:45:00 25 l Dariel 2016-08-07 2016-08-07 Outpatient MHIE MHIE [id number] Memoria 09:45:00 09:45:00 24 gladys Vieira 2016-08-03 2016-08-03 Outpatient MHIE MHIE [id number] Memoria 15:00:00 15:00:00 28 l Dariel 2016-08-03 2016-08-03 Outpatient MHIE MHIE [id number] Memoria 15:00:00 15:00:00 28 gladys Vieira 2016-07-25 2016-07-25 Outpatient MHIE MHIE [id number] Memoria 15:00:00 15:00:00 30 gladys Vieira 2016-07-25 2016-07-25 Outpatient MHIE MHIE [id number] Memoria 15:00:00 15:00:00 30 gladys Vieira 2016-07-24 2016-07-24 Outpatient MHIE MHIE [id number] Memoria 15:00:00 15:00:00 29 l [place] 2016-07-24 2016-07-24 Outpatient MHIE MHIE [id number] Memoria 15:00:00 15:00:00 29 l [place] 2016-07-21 2016-07-22 Outpt Diag nullFlavo [facility] [id number] Memoria 20:03:00 05:59:00 Services r Outpatient 01 l Imaging Dariel Chana 2016-07-21 2016-07-22 Outpt Diag nullFlavo [facility] [id number] Memoria 20:03:00 05:59:00 Services r Outpatient 01 l Imaging Dariel Chana 2016-07-21 2016-07-21 Outpatient Abbie, MH29 MH29 [id number] 14:03:00 23:59:00 Abdifatah 2016-07-10 2016-07-10 Outpatient MHIE MHIE [id number] Memoria 13:30:00 13:30:00 26 [facility] 2016-07-10 2016-07-10 Outpatient MHIE MHIE [id number] Memoria 13:30:00 13:30:00 26 l [place] 2016-07-10 2016-07-10 Outpatient MHIE MHIE [id number] Memoria 09:45:00 09:45:00 24 l [place] 2016-07-10 2016-07-10 Outpatient MHIE MHIE [id number] Memoria 09:45:00 09:45:00 24 l [place] 2016-07-07 2016-07-08 Outpt Diag nullFlavo [facility] [id number] Memoria 16:35:00 05:59:00 Services r Outpatient 00 l Imaging Dariel Chana 2016-07-07 2016-07-08 Outpt Diag nullFlavo [facility] [id number] Memoria 16:35:00 05:59:00 Services r Outpatient 00 l Imaging [place] Chana 2016-07-07 2016-07-07 Outpatient Abbie, MH29 [id number] 10:35:00 23:59:00 Abdifatah Hira 2016-07-03 2016-07-03 Outpatient MHIE MHIE [id number] Memoria 09:00:00 09:00:00 23 [facility] 2016-07-03 2016-07-03 Outpatient MHIE MHIE [id number] Memoria 09:00:00 09:00:00 23 gladys Dariel 2016-07-03 2016-07-03 Outpatient MHIE MHIE [id number] Memoria 08:45:00 08:45:00 22 gladys Dariel 2016-07-03 2016-07-03 Outpatient MHIE MHIE [id number] Memoria 08:45:00 08:45:00 22 gladys Dariel 2016-06-22 2016-06-22 Outpatient MHIE MHIE [id number] Memoria 10:30:00 10:30:00 07 gladys Dariel 2016-06-22 2016-06-22 Outpatient MHIE MHIE [id number] Memoria 10:30:00 10:30:00 07 gladys Dariel 2016-05-18 2016-05-18 Outpatient MHIE MHIE [id number] Memoria 09:45:00 09:45:00 19 gladys Vieira 2016-05-18 2016-05-18 Outpatient MHIE MHIE [id number] Memoria 09:45:00 09:45:00 19 gladys Vieira 2016-04-28 2016-04-28 Outpatient MHIE MHIE [id number] Memoria 10:00:00 10:00:00 15 gladys Vieira 2016-04-28 2016-04-28 Outpatient MHIE MHIE [id number] Memoria 10:00:00 10:00:00 15 gladys Vieira 2016-04-21 2016-04-21 Outpatient MHIE MHIE [id number] Memoria 14:30:00 14:30:00 05 gladys Vieira 2016-04-21 2016-04-21 Outpatient MHIE MHIE [id number] Memoria 14:30:00 14:30:00 05 gladys Vieira 2016-03-17 2016-03-17 Outpatient MHIE MHIE [id number] Memoria 09:45:00 09:45:00 13 gladys Vieira 2016-03-17 2016-03-17 Outpatient MHIE MHIE [id number] Memoria 09:45:00 09:45:00 13 gladys Vieira 2016-02-25 2016-02-25 Outpatient MHIE MHIE [id number] Memoria 08:30:00 08:30:00 16 gladys Vieira 2016-02-25 2016-02-25 Outpatient MHIE MHIE [id number] Memoria 08:30:00 08:30:00 16 gladys Veiira 2016-02-07 2016-02-07 Outpatient MHIE MHIE [id number] Memoria 10:15:00 10:15:00 14 gladys Vieira 2016-02-07 2016-02-07 Outpatient MHIE MHIE [id number] Memoria 10:15:00 10:15:00 14 gladys Vieira 2015-09-16 2015-09-16 Outpatient MHIE MHIE [id number] Memoria 09:45:00 09:45:00 04 gladys Vieira 2015-09-16 2015-09-16 Outpatient MHIE MHIE [id number] 165 Memoria 09:45:00 09:45:00 04 gladys Vieira 2015-08-03 2015-08-03 Outpatient MHIE MHIE [id number] Memoria 11:00:00 11:00:00 12 gladys Vieira 2015-08-03 2015-08-03 Outpatient MHIE MHIE [id number] Memoria 11:00:00 11:00:00 11 gladys Vieira 2015-08-03 2015-08-03 Outpatient MHIE MHIE [id number] Memoria 11:00:00 11:00:00 11 gladys Vieira 2015-08-03 2015-08-03 Outpatient MHIE MHIE [id number] Memoria 11:00:00 11:00:00 12 gladys Vieira 2015-08-02 2015-08-02 Outpatient MHIE MHIE [id number] Memoria 16:15:00 16:15:00 10 gladys Vieira 2015-08-02 2015-08-02 Outpatient MHIE MHIE [id number] Memoria 16:15:00 16:15:00 10 gladys Vieira 2015-07-15 2015-07-15 Outpatient MHIE MHIE [id number] Memoria 13:45:00 13:45:00 09 gladys Vieira 2015-07-15 2015-07-15 Outpatient MHIE MHIE [id number] Memoria 13:45:00 13:45:00 09 gladys Vieira 2015-06-23 2015-06-23 Outpatient MHIE MHIE [id number] Memoria 09:30:00 09:30:00 08 gladys Vieira 2015-06-23 2015-06-23 Outpatient MHIE MHIE [id number] Memoria 09:30:00 09:30:00 08 gladys Vieira 2015-06-17 2015-06-17 Outpatient MHIE MHIE [id number] Memoria 10:00:00 10:00:00 03 gladys Dariel 2015-06-17 2015-06-17 Outpatient MHIE MHIE [id number] Memoria 10:00:00 10:00:00 06 gladys Dariel 2015-06-17 2015-06-17 Outpatient MHIE MHIE [id number] Memoria 10:00:00 10:00:00 03 gladys Dariel 2015-06-17 2015-06-17 Outpatient MHIE MHIE [id number] Memoria 10:00:00 10:00:00 06 gladys Wheatland 2015-06-17 2015-06-17 Outpatient MHIE MHIE [id number] Memoria 09:45:00 09:45:00 00 gladys Dariel 2015-06-17 2015-06-17 Outpatient MHIE MHIE [id number] Memoria 09:45:00 09:45:00 00 gladys Vieira 2015-04-21 2015-04-21 Outpatient MHIE MHIE [id number] Memoria 14:45:00 14:45:00 01 gladys Dariel 2015-04-21 2015-04-21 Outpatient MHIE MHIE [id number] Memoria 14:45:00 14:45:00 01 gladys Dariel 2015-03-17 2015-03-17 Outpatient MHIE MHIE [id number] Memoria 14:00:00 14:00:00 02 gladys Dariel 2015-03-17 2015-03-17 Outpatient MHIE MHIE [id number] Memoria 14:00:00 14:00:00 02 gladys Vieira [...] code = 994) seen FUNGUS CULTURE + [id number] 16:29:00 Test Item Value Reference Range Interpretation Comments CULTURE (BEAKER) (test No fungus isolated in code = 1095) 28 days FUNGUS SMEAR (BEAKER) No fungi seen (test code = 1406) FUNGUS CULTURE + [id number] 16:29:00 Test Item Value Reference Range Interpretation Comments CULTURE (BEAKER) (test No fungus isolated in code = 1095) 28 days FUNGUS SMEAR (BEAKER) No fungi seen (test code = 1406) FUNGUS CULTURE + [id number] 16:29:00 Test Item Value Reference Range Interpretation Comments CULTURE (BEAKER) (test No fungus isolated in code = 1095) 28 days FUNGUS SMEAR (BEAKER) No fungi seen (test code = 1406) ANAEROBIC [id number] 19:02:00 Test Item Value Reference Range Interpretation Comments CULTURE (BEAKER) (test No anaerobes isolated code = 1095) ANAEROBIC [id number] 18:50:00 Test Item Value Reference Range Interpretation Comments CULTURE (BEAKER) (test No anaerobes isolated code = 1095) ANAEROBIC [id number] 18:49:00 Test Item Value Reference Range Interpretation Comments CULTURE (BEAKER) (test No anaerobes isolated code = 1095) SURGICALLY OBTAINED CULTURE + GRAM [id number] 12:55:00 Test Item Value Reference Range Interpretation Comments CULTURE (BEAKER) (test code No growth = 1095) GRAM STAIN RESULT (BEAKER) No WBCs (test code = 1123) GRAM STAIN RESULT (BEAKER) No organisms seen (test code = 29560) SURGICALLY OBTAINED CULTURE + GRAM [id number] 12:54:00 Test Item Value Reference Range Interpretation Comments CULTURE (BEAKER) (test code No growth = 1095) GRAM STAIN RESULT (BEAKER) 1+ WBCs (test code = 1123) GRAM STAIN RESULT (BEAKER) No organisms seen (test code = 46543) SURGICALLY OBTAINED CULTURE + GRAM [id number] 12:53:00 Test Item Value Reference Range Interpretation Comments CULTURE (BEAKER) (test code No growth = 1095) GRAM STAIN RESULT (BEAKER) 1+ WBCs (test code = 1123) GRAM STAIN RESULT (BEAKER) No organisms seen (test code = 64063) TISSUE [id number] 12:16:00Surgical Pathology Report Case: [id number] Authorizing Provider: Darrick Vick Collected: 01/14/2020 11:55 AM Jovi Martinez MD Ordering Location: [facility] OR Received: 01/14/2020 04:17 PM [facility] Pathologist: Kenia Chaney MD Specimen: Explant, RIGHT KNEE TOTAL REVISION A. HARDWARE, REMOVAL, GROSS EXAMINATION ONLY: - HARDWARE IDENTIFIED (SEE GROSS DESCRIPTION). Signing Pathologist Direct Phone Line: [phone] signed by Kenia Chaney MD on 01/15/2020 at 12:16 PM88 300Preop diagnosis: Mechanical loosening of internal left knee prosthetic joint, initial encounter. ExplantReceived fresh labeled with the patient's name, accession number and "right knee total revision" are three pieces of metallic alcantara to alcantara-white orthopedic hardware ranging from 6.4 to 6.5 cm in greatest dimension. The following inscription is identified: [id number] 2.5 PE 10 [id number] gross photograph is taken. No sections are submitted. This case is for gross examination only. PA/pl [facility], Department of Pathology, [address] [place], [place] [id number], [facility], [address] [place] [id number], [facility], [facility], [address] [place] [id number], KTMMV METABOLIC [id number] 05:02:00 Test Item Value Reference Range Interpretation [...] PATIEN TS. CBC W/PLT COUNT & AUTO [id number] 04:49:00 Test Item Value Reference Range Interpretation [...] PERCENT (BEAKER) (test code = 2801) SPIN/CONCENTRATION [id number] 01:24:00 Test Item Value Reference Range Interpretation Comments CONCENTRATION CHARGED (BEAKER) (test Done code = 2657) RAD, KNEE, 1 OR 2 VIEWS, [id number] 17:25:00AP and lateral views of the prosthetic [...] Verified Date/Time: 01/14/2020 17:25:10 Reading Location: [facility] [address] [place] [id number]
--- NOTE | 2023-04-25 15:04 | RAD REPORT ---
EXAM DESCRIPTION: RAD - Chest Pa And Lat (2 Views) - 04/25/2023 2:53 pm CLINICAL HISTORY: COUGH COMPARISON: Chest Pa And Lat (2 Views) dated 12/24/2022; Chest Single View dated 08/12/2020; Chest Pa A nd Lat (2 Views) dated 01/05/2020; CHEST PA AND LAT 2 VIEW dated 04/21/2010 FINDINGS: Lines: None. Lungs: No evidence of edema or pneumonia. Pleural: No significant pleural effusions or pneumothorax. Cardiac: The heart size is within normal limits. Aortic atherosclerosis . Mediastinum: Within normal limits. Bones: No acute fractures. Other: None IMPRESSION: No acute cardiopulmonary disease.
--- NOTE | 2023-04-25 15:10 | EDPHYS ---
Physician Documentation [facility] Name: Bo Boudreaux Age: 82 yrs Sex: Female : 1940 Arrival Date: 04/25/2023 Time: 12:40 Bed 10 Private MD: ED Physician Titi Orellana HPI: 04/25 15:27 This 82 yrs old Black Female presents to ER via Ambulatory with complaints of Headache. kb 15:27 Patient is a 82-year-old female who presents for cough, headache and chills that kb started last night. States her grandson was diagnosed with the flu 2 days ago and she has recently been babysitting him.. Historical: - Allergies: 13:10 PENICILLINS; mb9 - PMHx: 13:10 Hyperlipidemia; Hypertension; mb9 - PSHx: 13:10 None; mb9 - Immunization history:: Adult Immunizations up to date. - Social history:: Smoking status: Patient denies any tobacco usage or history of. ROS: 15:25 Abdomen/GI: Negative for abdominal pain, nausea, vomiting, diarrhea, and constipation, kb 15:25 Constitutional: Positive for chills, 15:25 Respiratory: Positive for cough, 15:25 Neuro: Positive for headache, 15:25 All other systems are negative, Exam: 15:26 Constitutional: This is a well developed, well nourished patient who is awake, alert, kb and in no acute distress. Head/Face: Normocephalic, atraumatic. ENT: Moist Mucous membranes Cardiovascular: Regular rate Respiratory: Respirations even and unlabored. No increased work of breathing. Talking in full sentences Skin: Warm, dry with normal turgor. Normal color. MS/ Extremity: Pulses equal, no cyanosis. Neurovascular intact. Full, normal range of motion. Neuro: Awake and alert, GCS 15, oriented to person, place, time, and situation. Moves all extremities. Normal gait. Vital Signs: 13:08 Pulse 100; Resp 18; Temp 99.3; Pulse Ox 100% on R/A; Weight 74.84 kg; Height 5 ft. 5 mb9 in. ; Pain 6/10; 13:08 BP 130 / 60; mb9 15:28 BP 128 / 68; Pulse 105; Resp 18; Pulse Ox 99% on R/A; me1 13:08 Body Mass Index 27.46 (74.84 kg, 165.1 cm) mb9 13:08 Pain Scale: Adult mb9 [place] Coma Score: 15:26 Eye Response: spontaneous(4). Motor Response: obeys commands(6). Verbal Response: kb oriented(5). Total: 15. MDM: 12:46 Patient medically screened. kb 15:26 Differential diagnosis: Flu, COVID, RSV, URI, pneumonia. Data reviewed: vital signs, kb nurses notes. Counseling: I had a detailed discussion with the patient and/or guardian regarding the historical points, exam findings, and any diagnostic results supporting the discharge/admit diagnosis, lab results, radiology results, the need for outpatient follow up, a family practitioner, to return to the emergency department if symptoms worsen or persist or if there are any questions or concerns that arise at home. 04/25 13:13 Order name: Flu; Complete Time: 13:55 kb 04/25 13:13 Order name: COVID-19 SARS RT PCR; Complete Time: 14:10 kb 04/25 14:38 Order name: Chest Pa And Lat (2 Views) XRAY; Complete Time: 15:08 kb Administered Medications: 15:18 Drug: Acetaminophen PO 1000 mg PO once Route: PO; me1 15:35 Follow up: Response: No adverse reaction me1 Disposition Summary: 04/25/23 15:09 Discharge Ordered Notes: Location: Home kb Condition: Stable kb Diagnosis - Acute upper respiratory infection, unspecified kb Followup: kb - With: Emergency Department - When: As needed - Reason: Worsening of condition Followup: kb - With: Private Physician - When: 2 - 3 days - Reason: Recheck today's complaints, Continuance of care, Re-evaluation by your physician Discharge Instructions: - Discharge Summary Sheet kb - Upper Respiratory Infection, Adult, [id number] kb - Viral Respiratory Infection, Gpvl-[id number]-[id number] kb Forms: - Medication Reconciliation Form kb - Thank You Letter kb - Antibiotic Education kb - Prescription Opioid Use kb - Patient Portal Instructions kb - Leadership Thank You Letter kb Prescriptions: - Tamiflu 75 mg Oral capsule - take 1 tablet ORAL route every 12 hours for 5 days; 10 tablet; Refills: 0, kb Product Selection Permitted Addendum: 04/27/2023 20:11 I was immediately available for consultation during this patient's visit. I did not e c2 personally see the patient or guide the patient's care.. Signatures: Dispatcher [employer] Jada Alvarez, ALYCIA CHAO-Criselda Mulligan RN RN mb9 Octavia Nair RN RN me1 Titi Orellana MD MD ec2
--- NOTE | 2023-04-25 15:10 | ER ---
Nurse's Notes [facility] Name: Bo Boudreaux Age: 82 yrs Sex: Female : 1940 Arrival Date: 04/25/2023 Time: 12:40 Bed 10 Private MD: Diagnosis: Acute upper respiratory infection, unspecified Presentation: 04/25 13:08 Chief complaint: Patient states: "I've been around my grandson who has the Flu. 2 days mb9 ago, I started having a headache and cough.". Coronavirus screen: Vaccine status: Patient reports receiving the 2nd dose of the covid vaccine. Ebola Screen: No symptoms or risks identified at this time. Initial Sepsis Screen: Does the patient meet any 2 criteria? No. Patient's initial sepsis screen is negative. Does the patient have a suspected source of infection? No. Patient's initial sepsis screen is negative. Risk Assessment: Do you want to hurt yourself or someone else? Patient reports no desire to harm self or others. Onset of symptoms was April 25, 2023. 13:08 Method Of Arrival: Ambulatory mb9 13:08 Acuity: JORJE 4 mb9 Triage Assessment: 13:11 General: Appears in no apparent distress. Behavior is calm, cooperative, appropriate mb9 for age. Pain: Complains of pain in head Pain does not radiate. Pain currently is 6 out of 10 on a pain scale. Quality of pain is described as throbbing, Pain began 2-3 days ago. EENT: No signs and/or symptoms were reported regarding the EENT system. Neuro: Rodriguez Agitation-Sedation Scale (RASS): 0 - Alert and Calm Level of Consciousness is awake, alert, obeys commands, Oriented to person, place, time, situation, Appropriate for age Reports headache. Cardiovascular: Patient's skin is warm and dry. Respiratory: Airway is patent Respiratory effort is even, unlabored, Respiratory pattern is regular, symmetrical. GI: No signs and/or symptoms were reported involving the gastrointestinal system. : No signs and/or symptoms were reported regarding the genitourinary system. Derm: No signs and/or symptoms reported regarding the dermatologic system. Musculoskeletal: Range of motion: intact in all extremities. 15:28 Headache History: Denies prior headaches. Pain: Also complains of. me1 Historical: - Allergies: 13:10 PENICILLINS; mb9 - PMHx: 13:10 Hyperlipidemia; Hypertension; mb9 - PSHx: 13:10 None; mb9 - Immunization history:: Adult Immunizations up to date. - Social history:: Smoking status: Patient denies any tobacco usage or history of. Screenin:[address] [facility] ED Fall Risk Assessment (Adult) History of falling in the last 3 months, me1 including since admission No falls in past 3 months (0 pts) Confusion or Disorientation No (0 pts) Intoxicated or Sedated No (0 pts) Impaired Gait No (0 pts) Mobility Assist Device Used No (0 pt) Altered Elimination No (0 pt) Score/Fall Risk Level 0 - 2 = Low Risk. Abuse screen: Denies threats or abuse. Nutritional screening: No deficits noted. Tuberculosis screening: No symptoms or risk factors identified. Assessment: 15:14 General: See triage assessment. . Pain: Denies pain. me1 Vital Signs: 13:08 Pulse 100; Resp 18; Temp 99.3; Pulse Ox 100% on R/A; Weight 74.84 kg; Height 5 ft. 5 mb9 in. ; Pain 6/10; 13:08 BP 130 / 60; mb9 15:28 BP 128 / 68; Pulse 105; Resp 18; Pulse Ox 99% on R/A; me1 13:08 Body Mass Index 27.46 (74.84 kg, 165.1 cm) mb9 13:08 Pain Scale: Adult mb9 [place] Coma Score: 15:26 Eye Response: spontaneous(4). Motor Response: obeys commands(6). Verbal Response: kb oriented(5). Total: 15. ED Course: 12:42 Patient arrived in ED. mg5 12:46 Jada Su FNP-C is [facility]. kb 12:46 Titi Orellana MD is Attending Physician. kb 13:09 Triage completed. mb9 13:10 Arm band placed on. mb9 13:15 COVID-19 SARS RT PCR Sent. mb9 13:15 Flu Sent. mb9 14:41 Patient placed in an exam room, on a stretcher. ll1 14:54 Chest Pa And Lat (2 Views) XRAY In Process Unspecified. EDMS 15:12 Octavia Nair, RN is Primary Nurse. me1 15:14 Patient has correct armband on for positive identification. Bed in low position. Call me1 light in reach. Side rails up X 1. Provided Education on: POC. Verbalized understanding. . 15:14 No provider procedures requiring assistance completed. Patient did not have IV access me1 during this emergency room visit. Administered Medications: 15:18 Drug: Acetaminophen PO 1000 mg PO once Route: PO; me1 15:35 Follow up: Response: No adverse reaction me1 Medication: 15:28 VIS not applicable for this client. me1 Outcome: 15:09 Discharge ordered by . daniel 15:28 Discharged to home ambulatory, me1 15:28 Condition: stable 15:28 Discharge instructions given to patient, Instructed on discharge instructions, follow up and referral plans. medication usage, Demonstrated understanding of instructions, follow-up care, medications, Prescriptions given X 1, 15:35 Patient left the ED. me1 Signatures: Dispatcher [employer] EDJada Corea, R D ENGINEER-C R D ENGINEER-Alex Bolton RN RN ll1 Criselda Valderrama RN RN mb9 Octavia Nair RN RN me1 Georgette Wang mg5
[2023-04-25] MEDS ORDERED: ACETAMINOPHEN 500 MG TAB ONE (15:31)
[2023-04-25 17:27] VITALS: TEMP 99.3
[2023-04-25 17:29] VITALS: BP 128/68; O2SAT 99
== END 2023-04-25 15:35 | disposition home or self-care (01) ==
LOC: ER 12:40
DX: J06.9 Acute upper respiratory infection, unspecified (principal); Z11.52 Encounter for screening for COVID-19; I10 Essential (primary) hypertension; Z88.0 Allergy status to penicillin
CPT/HCPCS: 71046; 87635; 87804; 99283

== ENCOUNTER 2024-06-22 12:16 | Emergency (ER) | payer OTHER ==
[2024-06-22] MEDS ORDERED: ACETAMINOPHEN 500 MG TAB ONE (13:25)
[2024-06-22] MEDS ORDERED: KETOROLAC 30 MG/ML INJ ONE (13:25)
[2024-06-22] MEDS ORDERED: GABAPENTIN 400 MG CAP ONE (13:26)
--- NOTE | 2024-06-22 14:47 | EDPHYS ---
Physician Documentation [facility] Name: Bo Boudreaux Age: 83 yrs Sex: Female : 1940 Arrival Date: 06/22/2024 Time: 12:16 Bed 10 Private MD: ED Physician Kem Barahona HPI: 06/22 14:39 This 83 yrs old Black Female presents to ER via Ambulatory with complaints of Neck rn Pain, <24hrs Old. 14:39 The patient or guardian complains of pain. The symptoms are located on the Left rn posterior lateral neck. The pain does not radiate. Modifying factors: The symptoms are alleviated by remaining still, the symptoms are aggravated by movement, pressure. Severity of symptoms: At their worst the symptoms were moderate, in the emergency department the symptoms are unchanged. The patient has experienced similar episodes in the past. Patient reports left posterior lateral neck pain that she woke up with. Hurts to turn to the left. No fall or trauma. Has chronic neck pains and has undergone extensive physical therapy. Patient reports stopped physical therapy a week or 2 ago and now pain has returned. No new symptoms compared to previous neck problems. No weakness or numbness. No chest pain.. Historical: - Allergies: 12:54 PENICILLINS; db - PMHx: 12:54 Hyperlipidemia; Hypertension; db - Immunization history:: Adult Immunizations unknown. - Infectious Disease History:: Denies. - Social history:: Smoking status: Patient denies any tobacco usage or history of. ROS: 14:40 Constitutional: Negative for fever, chills, and weight loss, Neck: Positive for left rn neck pain Cardiovascular: Negative for chest pain, palpitations, and edema, Respiratory: Negative for shortness of breath, cough, wheezing, and pleuritic chest pain, Abdomen/GI: Negative for abdominal pain, nausea, vomiting, diarrhea, and constipation, MS/Extremity: Negative for injury and deformity, Neuro: Negative for headache, weakness, numbness, tingling, and seizure, Exam: 14:40 Constitutional: This is a well developed, well nourished patient who is awake, alert, rn and in no acute distress. Neck: No midline cervical tenderness. No pulsatile masses or tenderness over carotid vessels or vascularity. Vital Signs: 12:54 BP 166 / 83; Pulse 80; Resp 16; Temp 97.6; Pulse Ox 99% ; db 14:45 Pulse 61; Resp 16; Pulse Ox 100% on R/A; Pain 4/10; iw 14:45 Pain Scale: Adult iw MDM: 12:40 Medical Screening Exam initiated rn 14:46 Differential diagnosis: arthritis, Cervical Disc Herniation Cervical Discogenic Pain rn Cervical Facet Syndrome cervical strain, torticollis. Data reviewed: vital signs, nurses notes, old medical records, and as a result, I will discharge patient. Counseling: I had a detailed discussion with the patient and/or guardian regarding the historical points, exam findings, and any diagnostic results supporting the discharge/admit diagnosis, the need for outpatient follow up, to return to the emergency department if symptoms worsen or persist or if there are any questions or concerns that arise at home. Response to treatment: the patient's symptoms have markedly improved after treatment, and as a result, I will discharge patient. Special discussion: I discussed with the patient/guardian in detail that at this point there is no indication for admission to the hospital. It is understood, however, that if the symptoms persist or worsen the patient needs to return immediately for re-evaluation. 06/22 12:59 [facility] left neck; Complete Time: 14:08 rn Administered Medications: 13:36 Drug: Gabapentin PO 300 mg PO once Route: PO; iw 14:00 Follow up: Response: No adverse reaction iw 13:36 Drug: Acetaminophen PO 500 mg PO once Route: PO; iw 14:00 Follow up: Response: No adverse reaction iw 13:36 Drug: Ketorolac IM 15 mg IM once Route: IM; Site: left deltoid; iw 14:34 Follow up: Response: No adverse reaction; Pain is decreased db 13:37 Not Given (Other Intervention Used): [id number] mg IVP once iw Disposition Summary: 06/22/24 14:47 Discharge Ordered Notes: Location: Home rn Problem: new rn Symptoms: have improved rn Condition: Stable rn Diagnosis - Spasmodic torticollis rn Followup: rn - With: Private Physician - When: As needed - Reason: Recheck today's complaints, Re-evaluation by your physician Discharge Instructions: - Discharge Summary Sheet rn - Acute Torticollis, Adult rn Forms: - Medication Reconciliation Form rn - Antibiotic home care manager rn - Prescription Opioid Use rn - Patient Portal Instructions rn - Leadership Thank You Letter rn Prescriptions: - gabapentin 100 mg Oral capsule - take 1 capsule ORAL route every 12 hours As needed; 14 capsule; Refills: 0, rn Product Selection Permitted - Tramadol 50 mg Oral Tablet - take 1 tablet ORAL route every 8 hours as needed; 12 tablet; Refills: 0, rn Product Selection Permitted Signatures: Kerri Leong RN RN iw Nieto, Roman, MD MD rn Benton, Danielle, RN RN db Corrections: (The following items were deleted from the chart) 13:37 12:59 IV Saline Lock ordered. dimitry choi
--- NOTE | 2024-06-22 14:47 | ER ---
Nurse's Notes [facility] Name: Bo Boudreaux Age: 83 yrs Sex: Female : 1940 Arrival Date: 06/22/2024 Time: 12:16 Bed 10 Private MD: Diagnosis: Spasmodic torticollis Presentation: 06/22 12:54 Chief complaint: Patient states: STATES WOKE UP WITH LEFT NECK PAIN. STATES WOKE UP AND db WAS UNABLE TO TURN NECK. STATES DID PHYSICAL THERAPY. DENIES RECENT INJURY. LAST NIGHT DENIES PAIN. Coronavirus screen: Client denies travel out of the [place] in the last 14 days. At this time, the client does not indicate any symptoms associated with coronavirus-19. Ebola Screen: Patient negative for fever greater than or equal to 101.5 degrees Fahrenheit, and additional compatible Ebola Virus Disease symptoms Patient denies exposure to infectious person. Patient denies travel to an Ebola-affected area in the 21 days before illness onset. No symptoms or risks identified at this time. Initial Sepsis Screen: Does the patient meet any 2 criteria? No. Patient's initial sepsis screen is negative. Does the patient have a suspected source of infection? No. Patient's initial sepsis screen is negative. Risk Assessment: Do you want to hurt yourself or someone else? Patient reports no desire to harm self or others. Onset of symptoms was June 22, 2024. 12:54 Method Of Arrival: Ambulatory db 12:54 Acuity: JORJE 4 db Triage Assessment: 12:54 General: Appears in no apparent distress. uncomfortable, Behavior is calm, cooperative. db Pain: Complains of pain in neck. Neuro: Level of Consciousness is awake, alert, obeys commands, Oriented to person, place, time, situation. Respiratory: Airway is patent Respiratory effort is even, unlabored, Respiratory pattern is regular, symmetrical. Musculoskeletal: Circulation, motion, and sensation intact. Capillary refill < 3 seconds, Range of motion: intact in all extremities. Historical: - Allergies: 12:54 PENICILLINS; db - PMHx: 12:54 Hyperlipidemia; Hypertension; db - Immunization history:: Adult Immunizations unknown. - Infectious Disease History:: Denies. - Social history:: Smoking status: Patient denies any tobacco usage or history of. Screenin:57 [facility] ED Fall Risk Assessment (Adult) History of falling in the last 3 months, iw including since admission No falls in past 3 months (0 pts) Confusion or Disorientation No (0 pts) Intoxicated or Sedated No (0 pts) Impaired Gait No (0 pts) Mobility Assist Device Used No (0 pt) Altered Elimination No (0 pt) Score/Fall Risk Level 0 - 2 = Low Risk Oriented to surroundings, Maintained a safe environment. Abuse screen: Denies threats or abuse. Denies injuries from another. Nutritional screening: No deficits noted. Tuberculosis screening: No symptoms or risk factors identified. Assessment: 13:30 General: Appears in no apparent distress. uncomfortable, Behavior is calm, cooperative. iw Pain: Complains of pain in neck Pain currently is 10 out of 10 on a pain scale. Neuro: Level of Consciousness is awake, alert, obeys commands, Oriented to person, place, time, situation, Moves all extremities. Full function. Cardiovascular: Patient's skin is warm and dry. Respiratory: Respiratory effort is even, unlabored, Respiratory pattern is regular, symmetrical. Derm: Skin is intact, is healthy with good turgor. Musculoskeletal: Range of motion: limited in neck. 14:45 Reassessment: Patient appears in no apparent distress at this time. Patient and/or iw family updated on plan of care and expected duration. Pain level reassessed. Patient is alert, oriented x 3, equal unlabored respirations, skin warm/dry/pink. Patient states feeling better. Patient states symptoms have improved. Vital Signs: 12:54 BP 166 / 83; Pulse 80; Resp 16; Temp 97.6; Pulse Ox 99% ; db 14:45 Pulse 61; Resp 16; Pulse Ox 100% on R/A; Pain 4/10; iw 14:45 Pain Scale: Adult iw ED Course: 12:19 Patient arrived in ED. al6 12:40 Kem Barahona MD is Attending Physician. rn 12:54 Arm band placed on Patient placed in waiting room. db 12:55 Triage completed. db 13:21 Kerri Leong, RN is Primary Nurse. iw 13:30 Patient has correct armband on for positive identification. Provided Education on: . iw 14:57 No provider procedures requiring assistance completed. Patient did not have IV access iw during this emergency room visit. Administered Medications: 13:36 Drug: Gabapentin PO 300 mg PO once Route: PO; iw 14:00 Follow up: Response: No adverse reaction iw 13:36 Drug: Acetaminophen PO 500 mg PO once Route: PO; iw 14:00 Follow up: Response: No adverse reaction iw 13:36 Drug: Ketorolac IM 15 mg IM once Route: IM; Site: left deltoid; iw 14:34 Follow up: Response: No adverse reaction; Pain is decreased db 13:37 Not Given (Other Intervention Used): [id number] mg IVP once iw Medication: 13:30 VIS not applicable for this client. iw Outcome: 14:47 Discharge ordered by . rn 14:58 Discharged to home ambulatory, with family, iw 14:58 Condition: good 14:58 Discharge instructions given to patient, family, Instructed on discharge instructions, follow up and referral plans. medication usage, Demonstrated understanding of instructions, follow-up care, medications, Prescriptions given X 2, 14:59 Patient left the ED. iw Signatures: Kerri Leong RN RN iw Kem Barahona MD MD rn Benton, Danielle RN Jaida Mitchell Corrections: (The following items were deleted from the chart) 12:56 12:54 Pulse 80bpm; Resp 16bpm; Pulse Ox 99%; Temp 97.6F; db db
[2024-06-24 16:06] VITALS: BP 166/83; TEMP 97.6; O2SAT 100
== END 2024-06-22 14:59 | disposition home or self-care (01) ==
LOC: ER 12:16
DX: G24.3 Spasmodic torticollis (principal); I10 Essential (primary) hypertension; E78.5 Hyperlipidemia, unspecified; Z88.0 Allergy status to penicillin
CPT/HCPCS: 96372; 99284

== ENCOUNTER 2025-01-27 08:00 | Day surgery (SDC) | payer OTHER ==
[2025-01-26 08:59] LABS: Absolute Lymphocytes (CBC) 2.0 K/uL (0.7-4.9); Hematocrit 37.7 % (36.0-45.0); Hemoglobin 12.2 g/dL (12.0-15.0); MCH 28.5 pg (27.0-35.0); MCHC 32.5 g/dL (32.0-36.0); MCV 87.7 fL (80-100); MPV 9.3 fL (7.6-11.3); Nucleated RBC Absolute Count 0.0 (0-0); Nucleated Red Blood Cells % 0.0 % (0-0); RBC Red Blood Cell Count 4.29 M/uL (3.86-4.86); White Blood Count 5.60 thou/uL (4.3-10.9)
[2025-01-26 09:08] LABS: PT Prothrombin Time 12.4 SECONDS (10-13.0); PTT, Activated Partial Thromb 29.0 SECONDS (27.2-37.4); Protime INR 1.1
[2025-01-26 09:13] LABS: Anion Gap 6.9 mEq/L (5.0-15.0); BUN Blood Urea Nitrogen 33.0 mg/dL (7-18); Glucose Level 106.0 mg/dL (74-106); Potassium 4.9 mEq/L (3.5-5.1)
--- NOTE | 2025-01-26 10:08 | RAD REPORT ---
EXAM: Chest Pa And Lat (2 Views) HISTORY: 84 years Female Pre-op pending heart catheterization COMPARISON: No prior exams FINDINGS: LUNGS/PLEURA: The lungs are clear. No pleural effusions or pneumothorax. No pulmonary edema. CARDIAC/MEDIASTINUM: The cardiac silhouette is within normal limits. UPPER ABDOMEN: No significant abnormality. BONES: No acute abnormality. LINES/TUBES/OTHER: N/A IMPRESSION: No evidence of acute cardiopulmonary disease.
[2025-01-27] MEDS ORDERED: NA CHLORIDE 0.9% 500 ML ONE (08:03)
[2025-01-27] MEDS ORDERED: MIDAZOLAM HCL 2 MG/2 ML INJ ONE (08:08)
[2025-01-27] MEDS ORDERED: FENTANYL CITR 100 MCG/2 ML ONE (08:08)
[2025-01-27] MEDS ORDERED: HEPARIN 10,000 UNIT/10 ML VIAL IV ONE (08:12)
[2025-01-27] MEDS ORDERED: ATROPINE SULF 1 MG/10 ML SYR IV ONE (08:12)
[2025-01-27] MEDS ORDERED: HEPA 1000U/500MLS 2,000 UNIT/1,000 ML BAG IV ONE (08:12)
[2025-01-27] MEDS ORDERED: LIDOCAINE 1% 20 ML MDV ONE (08:12)
[2025-01-27] MEDS ORDERED: ASPIRIN 325 MG TAB ONE (08:13)
[2025-01-27] MEDS ORDERED: HEPARIN 5000 UNIT/ML 1 ML VIAL ONE (08:13)
[2025-01-27] MEDS ORDERED: NALOXONE 0.4 MG/ML VIAL ONE (08:13)
[2025-01-27] MEDS ORDERED: CLOPIDOGREL 75 MG TABLET ONE (08:13)
[2025-01-27] MEDS ORDERED: FLUMAZENIL 0.1 MG/ML (5 mL VIAL) IV ONE (08:13)
[2025-01-27] MEDS ORDERED: TICAGRELOR 90 MG TABLET PO ONE (08:13)
[2025-01-27] MEDS ORDERED: NITROGLYCERIN/D5W 50 MG/250 ML BTL IV ONE (08:14)
[2025-01-27] MEDS ORDERED: Phenylephrine HCl 10 MG/ML 1 ML VIAL ONE (09:14)
[2025-01-27 11:48] VITALS: BP 117/49; O2SAT 100
--- NOTE | 2025-01-28 03:14 | OP ---
Date of Procedure: 01/27/2025 Surgeon: Jah Joseph Procedure Performed: Selective coronary angiogram. Indication For Procedure: Abnormal stress test. Complications: None. Estimated Blood Loss: Less than 50 cc. Access: Right ulnar, closed by TR band. Sedation Time: 20 minutes with 1 of Versed and 25 of fentanyl. Description Of Procedure: After risks, benefits, and alternatives were explained to the patient, the patient agreed to proceed with procedure and signed informed consent. The patient was brought back to the cathodic protection technician, prepped and draped in sterile fashion. Time-out was performed. Sedation was administered. Next, the right ulnar artery was obtained using ultrasound-guided micropuncture technique. [place] 4 catheter was advanced over a J-wire to the aortic root. Selective angiogram was done using the same catheter. At the end of procedure, catheter was removed over a J-wire. Sheath was removed. TR band was applied. Hemostasis achieved. The patient was moved back to recovery in stable condition. Findings: 1. left main normal. 2. LAD, proximal mild luminal irregularities, then mid 20%-30% disease, then distal mild luminal irregularities, gives left to right collaterals into the RCA. 3. Left circ; proximal 30% disease, then mild luminal irregularities. 4. RCA; ostial 100% occluded with [id number] collaterals into the mid distal and RPDA. Assessment And Plan: 1. 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 2. Mild mid LAD disease. 3. 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 CLARE/ALEJANDRA Voice ID: [id number] Report ID: [id number] VERÓNICA
== END 2025-01-27 11:25 | disposition home or self-care (01) ==
LOC: CCL 08:00
PROVIDERS: ATTEND Internal Medicine Interventional Cardiology
DX: I25.10 Atherosclerotic heart disease of native coronary artery without angina pectoris (principal); I35.1 Nonrheumatic aortic (valve) insufficiency; I25.82 Chronic total occlusion of coronary artery; I70.223 Atherosclerosis of native arteries of extremities with rest pain, bilateral legs; I10 Essential (primary) hypertension; E78.2 Mixed hyperlipidemia; Z79.82 Long term (current) use of aspirin; Z79.899 Other long term (current) drug therapy; Z88.0 Allergy status to penicillin; Z82.49 Family history of ischemic heart disease and other diseases of the circulatory system
CPT/HCPCS: 93005; 85025; 80048; 36415; 85610; 85730; 71046; 93454; 76937; C1893; Q9966; J1644 ×2; J2003; J2250; J3010; J7040; 99152; 99153; J0461; J2310; J2371